=== PATIENT | male | born 1965 | race African-American/Black ===

== ENCOUNTER 2024-06-28 20:02 | Inpatient (IN) | payer BC, SELFPAY ==
[2024-06-28 16:29] VITALS: BP 207/110
[2024-06-28 16:54] LABS: % Basophils 0.5 % (0-2); % Eosinophils 2.1 % (0-6); % Immature Granulocytes 0.3 % (0-0.5); % Lymphocytes 16.7 % (20.5-51.1); % Monocytes 6.2 % (1.7-9.3); % Neutrophils 74.2 % (42.2-75.2); Absolute Basophils 0.1 10^3/uL (0-0.2); Absolute Eosinophils 0.2 10^3/uL (0-0.7); Absolute Lymphocytes 1.8 10^3/uL (1.2-3.4); Absolute Monocytes 0.7 10^3/uL (0.1-0.6); Hematocrit 39.4 % (39.0-52.0); Hemoglobin 13.2 g/dL (13.0-18.0); Mean Corp Hgb Conc. 33.5 g/dL (33.0-37.0); Mean Corpuscular Hgb 30.2 pg (27.0-31.0); Mean Corpuscular Volume 90.2 fL (80.0-94.0); Mean Platelet Volume 9.7 fL (7.4-10.4); Nucleated Red Blood Cells % 0 % (-); Platelet Count 307 10^3/uL (130-400); Red Blood Cell Count 4.37 10^6/uL (4.70-6.10); Red Cell Dist. Width 13.7 % (11.5-14.5); White Blood Cell Count 10.7 10^3/uL (4.8-10.8)
[2024-06-28 17:12] LABS: ALT (SGPT) 27 U/L (0-50); AST (SGOT) 18 U/L (17-59); Albumin 3.6 g/dl (3.5-5.0); Alkaline Phosphatase 96 U/L (38-126); Blood Urea Nitrogen 13 mg/dl (9-20); Calcium 9.5 mg/dl (8.4-10.2); Carbon Dioxide 24 mmol/L (22-30); Chloride 104 mmol/L (98-107); Glucose 184 mg/dl (70-99); Potassium 4.2 mmol/L (3.5-5.1); Sodium 135 mmol/L (135-145); Total Bilirubin 0.5 mg/dl (0.2-1.3); Total Protein 6.5 g/dl (6.3-8.2); eGFR > 60.00
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
[2024-06-28 19:08] VITALS: BMI 37.8
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
[2024-06-28 20:19] LABS: Erythrocyte Sed Rate 52 mm/hour (0-20)
[2024-06-28 20:55] VITALS: BP 206/115; BMI 36.7
--- NOTE | 2024-06-28 21:00 | PTCARENOTE ---
Patient received from ED, AAOX3, complaining of pain in left foot, medicated per JUN. NSR on monitor, hypertensive, prn labetalol given. Lungs clear, room air. Left foot swollen, toes 3 and 4 black with odor. #18 g in RAC. plan of care discussed
[2024-06-28] MEDS: VANCOCIN 540 MG IV (21:01)
[2024-06-28] MEDS: ORETIC 12.5 MG PO (21:14)
[2024-06-28] MEDS: TORADOL 10 MG IV (21:14)
[2024-06-28] MEDS: TRANDATE 10 MG IV (21:14)
[2024-06-28 21:46] LABS: Glucose - Point of Care 110 mg/dl (70-99)
[2024-06-28 23:07] VITALS: BP 193/111
[2024-06-29] VITALS (7 sets, daily range): BP systolic 147–190; BP diastolic 88–97
[2024-06-29] MEDS: TRANDATE 10 MG IV ×3 (03:17→23:24)
[2024-06-29 07:30] LABS: Glucose - Point of Care 123 mg/dl (70-99)
[2024-06-29 07:36] LABS: Hematocrit 36.6 % (39.0-52.0); Hemoglobin 12.2 g/dL (13.0-18.0); Mean Corp Hgb Conc. 33.3 g/dL (33.0-37.0); Mean Corpuscular Hgb 29.9 pg (27.0-31.0); Mean Corpuscular Volume 89.7 fL (80.0-94.0); Platelet Count 303 10^3/uL (130-400); Red Blood Cell Count 4.08 10^6/uL (4.70-6.10); Red Cell Dist. Width 13.5 % (11.5-14.5); White Blood Cell Count 8.6 10^3/uL (4.8-10.8)
[2024-06-29 07:56] LABS: Blood Urea Nitrogen 12 mg/dl (9-20); Calcium 9.4 mg/dl (8.4-10.2); Carbon Dioxide 26 mmol/L (22-30); Chloride 102 mmol/L (98-107); Estimated Creatinine Clearance > 125 ml/min; Glucose 109 mg/dl (70-99); Magnesium 1.5 mg/dl (1.6-2.3); Sodium 135 mmol/L (135-145); eGFR > 60.00
[2024-06-29] MEDS: TORADOL 10 MG IV (08:13)
[2024-06-29] MEDS: ZESTRIL 40 MG PO (08:15)
[2024-06-29] MEDS: GLUCOPHAGE XR EXTENDED RELEASE 750 MG PO (08:15)
[2024-06-29] MEDS: THERAGRAN 1 TABLET PO (08:15)
[2024-06-29] MEDS: ORETIC 12.5 MG PO ×2 (08:15→12:14)
[2024-06-29] MEDS: CRESTOR 20 MG PO (08:15)
--- NOTE | 2024-06-29 08:20 | PHA.VAN.IN ---
Assessment
- Assessment
Renal Function: Appears similar to baseline
AUC Dosing Plan
- Dosing Variables
Dosing Weight (kg): 119
Dosing CrCl (ml/min): 125
Vd coefficient (L/kg): 0.6
- Empiric Dosing
Initial / Loading Dose: 2000mg - 06/28 21:01
Maintenance Regimen: Vanc 1750mg Q12H starting at 1800
Estimated AUC (mcg*h/mL): 502
Estimated Peak (mcg*h/mL): 33.7
Estimated Trough (mcg/ml): 11.4
Estimated Half Life (H): 6.4
- Monitoring
No levels ordered at this time: consider levels in next few days
Pharmacokinetics Vancomycin I
- -
Patient Age: 59
Patient Sex: Male
Vancomycin Day #: 1
Indication: Skin And Soft Tissue
Requesting Provider: Dr. Quevedo
Pertinent Antimicrobial Allergies:
NKDA
Height / Weight:
Height 5 ft 11 in
Actual Weight 119.323 kg
Pertinent Past Medical History: BMI ~37
- Vital Signs / Lab Results
Temp Pulse Resp BP Pulse Ox
98.4 F 98 18 190/93 98
06/29/24 07:41 06/29/24 07:41 06/29/24 07:41 06/29/24 07:41 06/29/24 07:41
Lab Results - Hematology
06/28/24 06/29/24
16:44 06:58
WBC 10.7 8.6
Lab Results - Chemistry
06/28/24 06/29/24
16:44 06:58
BUN 13 12
Creatinine 0.8 0.7
Estimated Creat Clear > 125
Albumin 3.6
[2024-06-29 09:03] LABS: Glycohemoglobin (HgbA1c) 10.4 % (4.0-5.6)
--- NOTE | 2024-06-29 10:36 | W.PN.HOSP.TC ---
Today's Communication/Plan
-
Continue lisinopril, hctz, prn labetolol. Continue metformin, ISS. Cultures pending. Podiatry and ID consulted.
Assessment / Plan
Assessment / Plan
59yo M with PMH DM (metformin), htn (lisinopril), hld (rosuvastatin) presenting for pain/swelling of left foot. On arrival to ED, he was hypertensive with SBPs 200s, DBPs 110s requiring IV labetolol. Blood cultures and wound cultures from left foot
obtained, and he was started on IV vanc.
Diabetic foot infection with possible gangrene
- Blood cultures pending. Wound cultures pending.
- Afebrile, no leukocytosis. Elevated inflammatory markers.
- MRI left foot showed likely early osteomyelitis of 3rd toe within middle/distal phalanx; no evidence of osteomyelitis of 4th toe; soft tissue swelling
- Continue IV vancomycin
- Podiatry and ID consulted on admission.
- Check BARRY
Diabetes
- A1C 10.4 on admission, poorly controlled
- Continue home metformin
- POC BS and ISS
- Reassess for basal insulin based on requirements during day
Uncontrolled hypertension
- Continue home lisinopril 40mg daily
- Continue hctz, started this admission
- Continue PRN labetalol
HLD- continue home rosuvastatin 20mg daily
Code status: Full
VTE ppx: Lovenox sc
Diet: Diabetic, chol low
Dispo planning: pending clinical course
Anticipated Discharge: > 48 hours
Subjective/Interval History
-
Date of Service: June 29, 2024
No acute events overnight. Reports ongoing pain in left foot that he describes as sharp pain in top of toes, rated 7 out of 10 subjective pain scale, not relieved by medications. Reports occasional improvement in pain by hanging foot off edge of
bed. Denies fevers/chills, lightheadedness, dizziness, chest pain, shortness of breath, cough, abdominal pain, diarrhea, constipation. Last BM yesterday. Tolerating PO. At baseline ambulates without assistance.
Objective Data
-
Labs:
Laboratory Results
06/29/24
06:58
WBC 8.6
Hgb 12.2 L
Hct 36.6 L
Plt Count 303
Sodium 135
Potassium 4.0
Chloride 102
Carbon Dioxide 26
BUN 12
Creatinine 0.7
Glucose 109 H
Calcium 9.4
Vital Signs:
Vital Signs
Temp Pulse Resp BP Pulse Ox
98.4 F 98 18 190/93 96
06/29/24 07:41 06/29/24 07:41 06/29/24 07:41 06/29/24 07:41 06/29/24 08:46
I&O
06/28/24 06/29/24 06/30/24
06:59 06:59 06:59
Intake Total 540 / 540 240 / 240
Balance 540 / 540 240 / 240
Review of Systems
-
History Source: Patient
All other systems: Reviewed and negative
Physical Exam
-
General: Well Developed, No Apparent Distress, Comfortable, Conversant and Obese; Negative Fever, Chills or Sweats
HEENT: Normocephalic and Atraumatic
Respiratory: Clear to Auscultation and Non Labored Respirations; Negative Wheezes
Cardiac: Regular Rhythm and S1/S2
GI: Soft, Nontender, Normal Bowel Sounds and Other (obese abdomen)
Musculoskeletal: No Edema and Other (LLE: necrosis of distal 3rd/4th digit, no drainage, nontender)
Skin: Warm and Dry
Neuro: Awake, Alert and Oriented
Psych: Calm and Intact Judgement/Insight
Data Reviewed
-
Diagnostic Radiology: Image personally visualized and interpreted, Report Reviewed by me and Discussed with Patient
MRI: Image personally visualized and interpreted and Report Reviewed by me
Labs: Labs Reviewed by me
--- NOTE | 2024-06-29 10:56 | W.PN.UPDATE ---
Update Note
Progress Note Update
I saw and evaluated the patient. I reviewed the resident�s note and agree with findings and plan as documented in the resident�s note.
Gen: NAD, AAOx3.
Eyes: EOMI, PERRLA, no scleral icterus.
Neck: supple.
CV: RRR, +S1/S2, no m/r/g.
Resp: CTAB, no rales, wheezes, or rhonchi.
Abd: +BS, soft, NT, ND
Skin: No rashes. L 2nd/3rd toes with necrosis
Neuro: CN 2-12 intact, non-focal.
Psych: Normal mood and affect.
06/28/24 19:06 Toe Gram Stain - Preliminary
MRI foot: Soft tissue swelling along the third and fourth toes. There is ossification of the DIP of the third toe findings of likely early osteomyelitis within the middle/distal phalanx. There is no evidence of osteomyelitis involving the fourth
toe. T2/STIR hyperintense signal within the distal aspect of the distal phalanx of the great toe without adjacent soft tissue abnormality or T1 signal abnormality in which is favored to represent marrow edema.
Diabetic L foot OM:
-with gangrene/necrosis
-cont empiric Vanco
-follow Cxs
-Podiatry and ID to see
DM2:
-SSI/accuchecks
-a1c 10.4%
-change SSI to mod res
-cont diabetic diet
-BGs have been 100s
-c/s diabetes [employer]
-pt admits to noncompliance with diabetic diet
Essential HTN:
-With hypertensive urgency
-cont lisinopril
-start Norvasc 5mg daily
-increase HCTZ to 25mg daily
Obesity due to excess calories:
-Encourage weight loss
-Affects all aspects of care
FULL/Lovenox
Total time spent on today's encounter was 50 minutes which included time spent in counseling the patient/family regarding diagnosis and treatment plan as listed above, goals of care, and symptom management. Case was discussed with nursing staff,
specialists, and care coordinators/case management. All labs and imaging personally reviewed by me. Remainder the time spent in detailed review of previous records, lab data, imaging, and other medical provider documentation.
[2024-06-29 11:28] LABS: Glucose - Point of Care 142 mg/dl (70-99)
--- NOTE | 2024-06-29 11:29 | PN.DE.MGMTRT ---
Insulin Management
- -
06/29/2024: Diabetes Management Consult
59 year old male who presented to the ED with pain and swelling of the left foot due to Diabetic foot infection with possible gangrene.
PMH: HTN, HLD, NIDDM, Peripheral Neuropathy, and Class II Obesity. MRI-->Soft tissue swelling, likely early osteomyelitis of the 3rd digit in the middle/distal phalanx.
Pt awake, alert, sitting up in chair, offers no complaints, able to discuss diabetes care plan.
A1C 0.4%, Cr 0.7, eGFR >60, was taking Metformin 750mg daily and Ozempic Q Friday.
States he has had diabetes for over 15 years, does not test his blood sugars and does not have a glucose monitor
In-patient diabetes regimen includes: Moderate corrective insulin with meals and Metformin 750 mg daily only
Glucose has been stable and in range since admission. HS blood sugar was 110, FBG 109(V), 123 POC.
Discuss current AC1 with pt and emphasized importance of optimal glucose control to avoid worsening diabetes related complications.
Will increase Metformin to 1000 mg BID. His current glucose level does not warrant insulin therapy at this time
Will closely monitor glucose trend and add basal insulin if necessary.
Pt will be seen today by Diabetes RN Educator for monitor instructions.
Diabetes History
- -
Type of Diabetes: 2
Pre-Admission Diabetes Regimen
06/28/24 06/29/24
16:44 06:58
Creatinine 0.8 0.7
Lab Results
Hemoglobin A1c 10.4 % (4.0-5.6) H 06/29/24 06:58
Insulin Pump Settings
IP Diabetes Regimen
06/28/24 06/28/24 06/29/24
16:44 21:35 06:58
Glucose 184 H 109 H
POC Glucose 110 H
06/29/24 06/29/24
07:19 11:17
Glucose
POC Glucose 123 H 142 H
Meal type: Breakfast
Amount consumed: 95%
Patient Education
[2024-06-29 11:41] LABS: Alcohol None Detected
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
--- NOTE | 2024-06-29 11:54 | WOUNDNOTE ---
L 3RD AND 4TH TOES
--- NOTE | 2024-06-29 11:57 | WOUNDNOTE ---
WON RN note: Patient admitted with necrosis and cellulitis of L toes.
See H&P for complete history. Works for [employer] retires in 3 months per patient.
PMH: Obesity, IDDM,HTN,ORIF pelvic fracture.
Wound Location and type/assessment: Patient admitted with: gangrene of L 3rd and 4th toe, moist btw toes, scant serosanguineous drainage, no odor. + faint palpable pedal pulses, skin warm and dry. Heels are intact. Patient reports he had swelling
in feet recently and he thinks shoes were too tight causing ulcers. HgbA1c is 10.[address] Beasley at bedside who assessed ulcers. Patient states he is on Ozempic and has lost some weight. MRI showed early osteomyelitis in middle distal phalanx. Toe
culture pending as is I&D and Podiatry consults.
Appetite: Good.
Pressure redistribution devices in place: On Accumax, is ad alejandro.
Plan: Heel foams applied. Painted eschar with Betadine and dry gauze dressing until further orders from Podiatry.
Confirmed orders with hospitalist and updated nurse. Updated care plan and will follow as needed.
Note to case management of equipment requested for discharge: TBD
Recommend follow up with Board Design Engineer.
[2024-06-29] MEDS: NORVASC 5 MG PO (12:13)
[2024-06-29] MEDS: MORPHINE SULFATE 2 MG IV ×2 (12:15→20:14)
[2024-06-29] MEDS: ZOSYN 50 IV ×2 (13:27→20:01)
--- NOTE | 2024-06-29 15:17 | PTCARENOTE ---
06/29/2024 Diabetes Education
I met with Mr. Chapman to review diabetes management, has had Type 2 DM for many years.
He does not check BG at home, unsure of last HbA1c date but states it was approximately 13%. His current HbA1c is 10.4%.
I educated on physiology of T2D, managing with medications, monitoring BG, nutrition, activity, sleep and managing stress. I educated Mr. Chapman on complications from uncontrolled BG and that uncontrolled DM most likely played a role in his diagnosis
of gangrenous cellulitis. Member acknowledged understanding.
Discussed normal target glucose ranges and a monitoring schedule preprandial and 2 hours postprandial or as recommended per d/c instructions and PCP. I reinforced signs of hyperglycemia, hypoglycemia; BS parameters and recommended HbA1c goals,
written material provided. He denies signs and symptoms of hyperglycemia and hyperglycemia.
I educated and reviewed using Contour Next glucometer, member acknowledged understanding with a self demonstration of checking BS. Requested prescription sent to pharmacy for test strips and lancets for back up SMBG. Information provided on the
outpatient DSME program. Encouraged patient to follow up with his PCP for post d/c appointment and to monitor medication and blood glucose levels. Patient and spouse verbalized understanding.
--- NOTE | 2024-06-29 16:03 | CM ---
CM reviewed medical records. Patient is independent. Patient is active with his PCP. Patient has medication coverage. CM will watch for needs.
PLAN: Home vs. Home services.
[2024-06-29 16:30] LABS: Glucose - Point of Care 94 mg/dl (70-99)
[2024-06-29] MEDS: LOVENOX 40 MG SC (17:17)
[2024-06-29] MEDS: VANCOCIN 535 MG IV (17:17)
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
[2024-06-29 21:42] LABS: Glucose - Point of Care 92 mg/dl (70-99)
[2024-06-30] VITALS (11 sets, daily range): BP systolic 168–197; BP diastolic 84–101
[2024-06-30] MEDS: ZOSYN 50 IV ×4 (01:23→19:30)
[2024-06-30] MEDS: MORPHINE SULFATE 2 MG IV ×4 (03:40→21:46)
[2024-06-30] MEDS: VANCOCIN 535 MG IV ×2 (05:24→17:18)
--- NOTE | 2024-06-30 05:36 | DOWNTIME ---
There was a [employer] Client Blind Cleaner Downtime on 06/30/2024 from 0100 to 07/01/2023 at 0420 . Downtime documentation of patient's care, including medication administrations, has been reconciled in the electronic record per guidelines. Refer to the
patient's paper chart under the miscellaneous tab to see printed paper medication records and downtime forms.
[2024-06-30 06:17] LABS: Glucose - Point of Care 102 mg/dl (70-99)
[2024-06-30] MEDS: GLUCOPHAGE XR EXTENDED RELEASE 1000 MG PO (07:38)
[2024-06-30] MEDS: THERAGRAN 1 TABLET PO (07:38)
[2024-06-30] MEDS: ZESTRIL 40 MG PO (07:38)
[2024-06-30] MEDS: ORETIC 25 MG PO (07:38)
[2024-06-30] MEDS: CRESTOR 20 MG PO (07:38)
[2024-06-30] MEDS: NORVASC 5 MG PO ×2 (07:39→09:31)
--- NOTE | 2024-06-30 08:28 | PN.DE.MGMTRT ---
Insulin Management
- -
06/30/2024: Diabetes Management Consult Follow up
59 year old male who presented to the ED with pain and swelling of the left foot due to Diabetic foot infection with possible gangrene.
PMH: HTN, HLD, NIDDM, Peripheral Neuropathy, and Class II Obesity. MRI-->Soft tissue swelling, likely early osteomyelitis of the 3rd digit in the middle/distal phalanx. A1C 10.4%, Cr 0.7, eGFR >60, was taking Metformin 750mg daily and Ozempic Q
Friday.
06/29 States he has had diabetes for over 15 years, does not test his blood sugars and does not have a glucose monitor.
Pt is off the unit for testing, unable to interview.
06/30 Glucose stable, range 92 to 142, fasting glucose this AM 102. Will continue moderate corrective insulin q 6hours. Patient is currently NPO for procedure.
Discussed with nurse.
Will follow
Pt seen by Diabetes RN Educator for Contour Next monitor instructions.
Diabetes History
- -
Type of Diabetes: 2
Pre-Admission Diabetes Regimen
Lab Results
Hemoglobin A1c 10.4 % (4.0-5.6) H 06/29/24 06:58
Insulin Pump Settings
IP Diabetes Regimen
06/29/24 06/29/24 06/29/24
11:17 16:18 21:31
POC Glucose 142 H 94 92
06/30/24
06:05
POC Glucose 102 H
Meal type: Lunch
Meal type: Breakfast
Amount consumed: 100%
Amount consumed: 95%
Patient Education
--- NOTE | 2024-06-30 08:49 | W.PN.UPDATE ---
Update Note
Progress Note Update
I saw and evaluated the patient. I reviewed the resident�s note and agree with findings and plan as documented in the resident�s note.
No new complaints. Denies chest pain or shortness of breath.
Gen: NAD, AAOx3.
Eyes: EOMI, PERRLA, no scleral icterus.
Neck: supple.
CV: Remains RRR, +S1/S2, no m/r/g.
Resp: Remains CTAB, no rales, wheezes, or rhonchi.
Abd: +BS, soft, NT, ND
Skin: No rashes. Remains L 2nd/3rd toes with necrosis
Neuro: CN 2-12 intact, non-focal.
Psych: Normal mood and affect.
06/28/24 19:06 Blood/Venous Blood Culture - Preliminary
No Growth in 24 hours- Final report to follow
06/28/24 19:06 Toe Gram Stain - Preliminary
MRI foot: Soft tissue swelling along the third and fourth toes. There is ossification of the DIP of the third toe findings of likely early osteomyelitis within the middle/distal phalanx. There is no evidence of osteomyelitis involving the fourth
toe. T2/STIR hyperintense signal within the distal aspect of the distal phalanx of the great toe without adjacent soft tissue abnormality or T1 signal abnormality in which is favored to represent marrow edema.
Diabetic L foot OM:
-with gangrene/necrosis
-cont empiric Vanco/zosyn as per ID
-follow Cxs
-Podiatry following
-awaiting LE art U/S with ABIs
DM2:
-SSI/accuchecks
-a1c 10.4%
-cont mod res SSI
-cont diabetic diet
-BGs have been well controlled in hospital
-diabetes DECKER OPERATOR following
-pt admits to noncompliance with diabetic diet
-stop Metformin. Pt may need arteriogram and is also likely having surgery which can result in fluid shifts/losses that can result in acute kidney injury. The risk of using metformin in this case while hospitalized is simply too high.
Essential HTN:
-With hypertensive urgency
-cont lisinopril 40mg daily (home med)
-on 06/28/24 Norvasc 5mg daily was started and the patient's HCTZ was increased to 25mg daily
-BP still uncontrolled
-increase norvasc to 10mg daily (will take 24-72 hours to become effective)
-will try IV hydralazine PRN (as opposed to IV labetalol)
Obesity due to excess calories:
-Encourage weight loss
-Affects all aspects of care
FULL/Lovenox
Total time spent on today's encounter was 52 minutes which included time spent in counseling the patient/family regarding diagnosis and treatment plan as listed above, goals of care, and symptom management. Case was discussed with nursing staff,
specialists, and care coordinators/case management. All labs and imaging personally reviewed by me. Remainder the time spent in detailed review of previous records, lab data, imaging, and other medical provider documentation.
--- NOTE | 2024-06-30 09:01 | W.PN.HOSP.TC ---
Today's Communication/Plan
-
Check BARRY, possible podiatry surgery, maintain NPO preop. Increased antihypertensives, continue prn labetalol. Diabetes management consult
Assessment / Plan
Assessment / Plan
59yo M with PMH DM (metformin), htn (lisinopril), hld (rosuvastatin) presenting for pain/swelling of left foot. On arrival to ED, he was hypertensive with SBPs 200s, DBPs 110s requiring IV labetolol. Blood cultures and wound cultures from left foot
obtained, and he was started on IV vanc.
Diabetic foot infection with possible gangrene
Suspected peripheral arterial disease
- Blood cultures pending. Wound cultures pending.
- Afebrile, no leukocytosis. Elevated inflammatory markers.
- MRI left foot showed likely early osteomyelitis of 3rd toe within middle/distal phalanx; no evidence of osteomyelitis of 4th toe; soft tissue swelling
- ID and podiatry following, appreciate recs.
- Continue IV vancomycin and zosyn per ID.
- Check BARRY, anticipate this AM.
- Pending results of BARRY, will go to OR with podiatry-- possibly today. NPO.
Diabetes
- A1C 10.4 on admission, poorly controlled
- Stop home metformin while inpatient
- Diabetes management consulted, appreciate recs.
- Continue accuchecks and moderate ISS
Hypertensive urgency
Essential hypertension, uncontrolled
- Continue home lisinopril 40mg daily
- Continue hctz 25mg daily, started this admission
- Continue amlodipine 10mg daily, started this admission
- Continue PRN labetalol
HLD- continue home rosuvastatin 20mg daily
Obesity due to excess calories
Code status: Full
VTE ppx: Lovenox sc
Diet: NPO for possible surgery today
Dispo planning: pending clinical course
Anticipated Discharge: 24 - 48 hours
Subjective/Interval History
-
Date of Service: June 30, 2024
No acute events overnight. Reports ongoing pain in toes, improves when hanging foot off edge of bed. Denies lightheadedness, dizziness, chest pain, shortness of breath, abdominal pain, nausea, vomiting, diarrhea, constipation. Tolerating oral
diet. Out of bed without assistance. Last BM 3 days ago.
Objective Data
-
Labs:
Laboratory Results
06/30/24
06:00
WBC Pending
Hgb Pending
Hct Pending
Plt Count Pending
Sodium Pending
Potassium Pending
Chloride Pending
Carbon Dioxide Pending
BUN Pending
Creatinine Pending
Glucose Pending
Calcium Pending
Vital Signs:
Vital Signs
Temp Pulse Resp BP Pulse Ox
98.1 F 101 19 188/98 97
06/30/24 07:36 06/30/24 07:36 06/30/24 07:36 06/30/24 07:38 06/30/24 07:36
I&O
06/29/24 06/30/24 07/01/24
06:59 06:59 06:59
Intake Total 540 / 540 1595 / 1595
Balance 540 / 540 1595 / 1595
Review of Systems
-
History Source: Patient
All other systems: Reviewed and negative
Physical Exam
-
General: Well Developed, No Apparent Distress, Comfortable, Conversant and Obese; Negative Fever, Chills or Sweats
HEENT: Normocephalic and Atraumatic
Respiratory: Clear to Auscultation and Non Labored Respirations; Negative Wheezes, Rales or Rhonchi
Cardiac: Regular Rhythm and S1/S2
GI: Soft, Nontender, Normal Bowel Sounds and Other (obese abdomen)
Musculoskeletal: No Edema and Other (LLE: necrosis of distal 3rd/4th digit, no drainage, nontender)
Skin: Warm and Dry
Neuro: Awake, Alert and Oriented
Psych: Calm and Intact Judgement/Insight
Data Reviewed
-
Diagnostic Radiology: Image personally visualized and interpreted, Report Reviewed by me and Discussed with Patient
MRI: Image personally visualized and interpreted and Report Reviewed by me
Labs: Labs Reviewed by me
--- NOTE | 2024-06-30 11:06 | CM ---
Patient out of room to test. CM will follow as needed.
[2024-06-30 11:15] LABS: Glucose - Point of Care 106 mg/dl (70-99)
[2024-06-30] MEDS: APRESOLINE 10 MG IV ×3 (11:17→21:44)
--- NOTE | 2024-06-30 11:28 | W.PN.SURGUPD ---
Surgical Update
Surgical Update
59 y.o male with h/o HTN, HLD, NIDDM presenting to with left 3rd/4th toe gangrene and infection. MRI showed likely early osteomyelitis of left 3rd toe, no evidence of osteomyelitis of 4th toe. Patient with findings of poor peripheral vascular exam
-Reviewed non-invasive vascular testing results, L TBI 0.38
-Recommend vascular surgery consultation, appreciate input
-Will defer left foot surgical intervention pending vascular surgery input
-Continue local wound care (daily betadine pain to toes), antibiotics per ID recs
-Will continue to follow
[2024-06-30 12:02] LABS: Hematocrit 38.9 % (39.0-52.0); Hemoglobin 13.3 g/dL (13.0-18.0); Mean Corp Hgb Conc. 34.2 g/dL (33.0-37.0); Mean Corpuscular Hgb 30.5 pg (27.0-31.0); Mean Corpuscular Volume 89.2 fL (80.0-94.0); Mean Platelet Volume 9.5 fL (7.4-10.4); Platelet Count 320 10^3/uL (130-400); Red Blood Cell Count 4.36 10^6/uL (4.70-6.10); Red Cell Dist. Width 13.6 % (11.5-14.5); White Blood Cell Count 13.1 10^3/uL (4.8-10.8)
--- NOTE | 2024-06-30 12:59 | PTCARENOTE ---
pt BP remains elevated after PRN, ST 106-115 Resident notified
[2024-06-30 13:12] LABS: Blood Urea Nitrogen 15 mg/dl (9-20); Calcium 9.7 mg/dl (8.4-10.2); Carbon Dioxide 25 mmol/L (22-30); Chloride 99 mmol/L (98-107); Estimated Creatinine Clearance 118 ml/min; Glucose 111 mg/dl (70-99); Potassium 4.1 mmol/L (3.5-5.1); Sodium 136 mmol/L (135-145); eGFR > 60.00
--- NOTE | 2024-06-30 13:35 | PHA.VAN.FU ---
Vancomycin Assessment / Plan
- Assessment
Renal Function: Stable
WBC's are: Trending Up
In the past 24 hrs, patient has been: Afebrile
Concomitant Antimicrobials: piperacillin/tazobactam
- Dosing Plan
Continue: Vanc 1750mg Q12H
- Monitoring Plan
No level(s) ordered at this time: consider levels in next few days
- Follow Up
Pharmacy will continue to follow.
Vancomycin Follow UP
- -
Patient Age: 59
Patient Sex: Male
Vancomycin Day #: 2
Indication: Skin And Soft Tissue
Requesting Provider: Dr. Quevedo
Pertinent Antimicrobial Allergies:
NKDA
Height / Weight:
Height 5 ft 11 in
Actual Weight 119.323 kg
Pertinent Past Medical History: BMI ~37
- Vital Signs / Lab Results
Temp Pulse Resp BP Pulse Ox
98.1 F 106 19 178/99 98
06/30/24 11:27 06/30/24 12:04 06/30/24 11:27 06/30/24 12:04 06/30/24 11:27
Lab Results - Hematology
06/28/24 06/29/24 06/30/24
16:44 06:58 11:52
WBC 10.7 8.6 13.1 H
Lab Results - Chemistry
06/28/24 06/29/24 06/30/24
16:44 06:58 11:52
BUN 13 12 15
Creatinine 0.8 0.7 0.9
Estimated Creat Clear > 125 118
Albumin 3.6
Microbiology Results
06/29/24 12:42 Blood Culture - Preliminary
Blood/Venous No Growth in 24 hours- Final report to follow
06/28/24 19:06 Wound Culture - Preliminary
Toe Gram Stain - Preliminary
06/28/24 19:06 Blood Culture - Preliminary
Blood/Venous No Growth in 24 hours- Final report to follow
--- NOTE | 2024-06-30 14:56 | W.PN.UPDATE ---
Update Note
Progress Note Update
Seen and examined with MONO De La Fuente. Full consultation to follow. 59-year-old diabetic/hypertensive/hyperlipidemic non-smoking male (no tobacco history) who presents with close to 1 month of left fourth toe lesion/ulcer. Initially started as a
blister, now became dry and black. Third toe slightly less involved. Patient thinks that his toes were rubbing on 1 another and that is what started it. No prior such issues. Denies any prior lower extremity revascularizations. No significant
pain in the limb.
On exam/he is awake and alert. Head is normocephalic and atraumatic. Eyes are anicteric. Neck is soft without jugular venous distention. 2+ upper extremity radial pulses palpable bilaterally. Breathing is unlabored. Abdomen is soft,
nondistended, nontender. Lower extremity with 2+ femoral and popliteal pulses palpable bilaterally. Nonpalpable distally bilaterally. Feet are both warm. Left fourth toe dry gangrene and possibly distal third.
Noninvasive studies reviewed. Left toe brachial index is 0.38. No definitive stenosis seen on duplex ultrasound from common femoral through popliteal artery with multiphasic waveforms.
Plan/chronic limb threatening ischemia left lower extremity with gangrene. Discussed recommendation for angiography. Discussed procedure at length. Discussed potential outcomes to be: #1 no evidence of significant arterial insufficiency, #2
arterial stenoses or occlusions with successful revascularization endovascularly, #3 arterial stenoses or occlusions requiring staged surgical procedure, #4 no unreconstructable small vessel obliterative disease. I discussed risks of the procedure
as well including but not limited to bleeding, arterial injury/worsened or acute limb ischemia, renal failure. He understands all wishes to proceed. Will plan left lower extremity arteriogram, possible angioplasty/stent tomorrow. N.p.o. after
midnight.
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
[2024-06-30 16:20] LABS: Glucose - Point of Care 112 mg/dl (70-99)
--- NOTE | 2024-06-30 16:32 | W.PN.ID1 ---
Date of Service
Date of Service: June 30, 2024
Today's Communication
- c/w zosyn
- continue vancomycin
Assessment / Plan
Diabetic Foot Infection
Partial Dry Gangrene of 3rd and 4th digits of the L foot
Underlying osteomyelitis of the middle/distal 3rd phalanx
DM2 uncontrolled
- blood cultures x2 no growth to date
- wound culture is superficial, bear in mind this will not necessiarly be reliable for underlying cause of osteomyelitis
- nasal screen for mrsa
- recommend tight glucose control - reviewed importance of dm2 control in long run for wound healing
- would favor surgical resection of the affected bone in the 3rd digit, if not undertaken, I can attempt a course of home IV therapy; appreciate podiatry
- c/w zosyn
- continue vancomycin
- follow clinically
Chief Complaint
-: Other (diabetic foot infection)
Subjective / Review of Systems
afebrile
hypertensive
tolerating current therapies
Vital Signs / Physical Exam
Vital Signs
Vital Signs
Temp Pulse Resp BP Pulse Ox
98.9 F 103 18 182/93 97
06/30/24 15:10 06/30/24 15:10 06/30/24 15:10 06/30/24 15:10 06/30/24 15:10
Physical Exam
Constitutional: No Acute Distress
Cardiovascular: Regular Rate and S1/S2; Negative Murmur or Rub
Pulmonary: Clear and Symmetric; Negative Wheezes, Rales or Rhonchi
Gastrointestinal: Soft, Non Tender, Non Distended and Normal Bowel Sounds
Skin: Warm and Dry; Negative Rash or Jaundice
Wound: Other (dressing clean, dry, intact)
Objective Data
Lab Data
Lab Results
06/30/24 11:52
06/30/24 11:52
ESR 52 mm/hour (0-20) H 06/28/24 16:44
Estimated Creat Clear 118 ml/min 06/30/24 11:52
Total Bilirubin 0.5 mg/dl (0.2-1.3) 06/28/24 16:44
AST 18 U/L (17-59) 06/28/24 16:44
ALT 27 U/L (0-50) 06/28/24 16:44
Alkaline Phosphatase 96 U/L (38-126) 06/28/24 16:44
C-Reactive Protein 28.80 mg/L (0.0-10.00) H 06/28/24 16:44
Most recent labs reviewed.
Micro Results:
06/29/24 12:42 Blood Culture - Preliminary
Blood/Venous No Growth in 24 hours- Final report to follow
06/28/24 19:06 Wound Culture - Preliminary
Toe Gram Stain - Preliminary
06/28/24 19:06 Blood Culture - Preliminary
Blood/Venous No Growth in 24 hours- Final report to follow
[2024-06-30] MEDS: LOVENOX 40 MG SC (17:18)
[2024-06-30 21:50] LABS: Glucose - Point of Care 133 mg/dl (70-99)
--- NOTE | 2024-06-30 21:50 | PTCARENOTE ---
Received patient from [facility] via wheelchair. Patient ambulated from wheelchair to bed with minimal assistance. AAOx3, reports 7/10 left toe pain. PRN morphine given per protocol. Oriented patient to room and placed call walker within reach.
[2024-07-01] VITALS (17 sets, daily range): BP systolic 144–186; BP diastolic 80–102
[2024-07-01 00:19] LABS: Glucose - Point of Care 133 mg/dl (70-99)
[2024-07-01] MEDS: ZOSYN 50 IV ×2 (02:29→08:38)
[2024-07-01] MEDS: VANCOCIN 535 MG IV (05:54)
[2024-07-01 05:55] LABS: Glucose - Point of Care 123 mg/dl (70-99)
[2024-07-01] MEDS: MORPHINE SULFATE 2 MG IV ×2 (06:02→13:27)
--- NOTE | 2024-07-01 07:53 | PN.DE.MGMTRT ---
Insulin Management
- -
07/01/2024: Diabetes Management Consult Follow up
59 year old male who presented to the ED with pain and swelling of the left foot due to Diabetic foot infection with possible gangrene.
PMH: HTN, HLD, NIDDM, Peripheral Neuropathy, and Class II Obesity. MRI-->Soft tissue swelling, likely early osteomyelitis of the 3rd digit in the middle/distal phalanx. A1C 10.4%, Cr 0.7, eGFR >60, was taking Metformin 750mg daily and Ozempic Q
Friday.
06/29 States he has had diabetes for over 15 years, does not test his blood sugars and does not have a glucose monitor.
Patient for procedure today not in room at the time of my visit.
06/30 Glucose stable, range 102 to 133, fasting glucose this AM 123. Will continue moderate corrective insulin q 6hours. Patient is currently NPO for procedure.
Discussed with nurse.
Will follow
Pt seen by Diabetes RN Educator for Contour Next monitor instructions.
Diabetes History
- -
Type of Diabetes: 2
Pre-Admission Diabetes Regimen
06/30/24
11:52
Creatinine 0.9
Lab Results
Hemoglobin A1c 10.4 % (4.0-5.6) H 06/29/24 06:58
Insulin Pump Settings
IP Diabetes Regimen
06/30/24 06/30/24 06/30/24
11:04 11:52 16:09
Glucose 111 H
POC Glucose 106 H 112 H
06/30/24 07/01/24 07/01/24
21:49 00:17 05:53
Glucose
POC Glucose 133 H 133 H 123 H
Meal type: Lunch
Meal type: Breakfast
Amount consumed: 50%
Patient Education
[2024-07-01] MEDS: CRESTOR 20 MG PO (08:36)
[2024-07-01] MEDS: ZESTRIL 40 MG PO (08:37)
[2024-07-01] MEDS: ORETIC 25 MG PO (08:37)
[2024-07-01] MEDS: NORVASC 10 MG PO (08:37)
[2024-07-01] MEDS: THERAGRAN 1 TABLET PO (08:37)
[2024-07-01] MEDS: FLUSH (NSS) 1 FLUSH IV (08:38)
[2024-07-01 08:41] LABS: Hematocrit 36.8 % (39.0-52.0); Hemoglobin 12.6 g/dL (13.0-18.0); Mean Corp Hgb Conc. 34.2 g/dL (33.0-37.0); Mean Corpuscular Hgb 30.1 pg (27.0-31.0); Mean Corpuscular Volume 87.8 fL (80.0-94.0); Mean Platelet Volume 10.2 fL (7.4-10.4); Platelet Count 314 10^3/uL (130-400); Red Blood Cell Count 4.19 10^6/uL (4.70-6.10); Red Cell Dist. Width 13.5 % (11.5-14.5); White Blood Cell Count 10.9 10^3/uL (4.8-10.8)
[2024-07-01 09:03] LABS: Blood Urea Nitrogen 20 mg/dl (9-20); Calcium 9.1 mg/dl (8.4-10.2); Carbon Dioxide 19 mmol/L (22-30); Chloride 101 mmol/L (98-107); Estimated Creatinine Clearance 81 ml/min; Glucose 115 mg/dl (70-99); Magnesium 1.7 mg/dl (1.6-2.3); Potassium 4.1 mmol/L (3.5-5.1); Sodium 135 mmol/L (135-145); eGFR > 60.00
--- NOTE | 2024-07-01 09:51 | W.SUR.PREOP ---
Pre-Operative Surgical Note
-
I have examined this patient prior to the performance of the scheduled procedure.
The patient's condition is unchanged from the time of the current History and
Physical and the patient is able to undergo the scheduled procedure.
--- NOTE | 2024-07-01 09:55 | W.PN.HOSP.TC ---
Today's Communication/Plan
-
Vascular surgery eval today, NPO. Continue antibiotics.
Assessment / Plan
Assessment / Plan
59yo M with PMH DM (metformin), htn (lisinopril), hld (rosuvastatin) presenting for pain/swelling of left foot. On arrival to ED, he was hypertensive with SBPs 200s, DBPs 110s requiring IV labetolol. Blood cultures and wound cultures from left foot
obtained, and he was started on IV vanc.
Gangrene
Suspected peripheral arterial disease
Chronic limb threatening ischemia LLE
- Blood culture 06/28: No growth in 48 hours, final report pending. Blood culture 06/29: No growth in 24 hours, final report pending.
- Wound cultures pending; polymicrobial Gram stain.
- Afebrile, no leukocytosis on admission. Elevated inflammatory markers.
- MRI left foot showed likely early osteomyelitis of 3rd toe within middle/distal phalanx; no evidence of osteomyelitis of 4th toe; soft tissue swelling
- ID and podiatry following, appreciate recs.
- Continue to follow temperature curve and wbc.
- Continue IV vancomycin and zosyn per ID.
- Given L TBI 0.38, vascular surgery consulted, appreciate recs.
- Vascular surg procedure today, NPO.
- Will eventually need amputation, plan pending vascular evaluation.
Diabetes
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
- Stop home metformin while inpatient
- Diabetes management consulted, appreciate recs.
- Continue accuchecks and moderate ISS
Hypertensive urgency
Essential hypertension, uncontrolled
- Continue home lisinopril 40mg daily
- Continue hctz 25mg daily, started this admission
- Continue amlodipine 10mg daily, started this admission
- Continue PRN hydralazine
- BPs gradually improving, SBP 140s-170s overnight. Continue plan above as oral meds will take few days to reach full effect and BPs on admission likely inline with his baseline QUALITY ASSURANCE DIRECTOR.
HLD- continue home rosuvastatin 20mg daily
Obesity due to excess calories
Code status: Full
VTE ppx: Lovenox sc
Diet: NPO for procedure today
Dispo planning: pending clinical course
Anticipated Discharge: > 48 hours
Subjective/Interval History
-
Date of Service: July 01, 2024
No acute events overnight. Reports mild pain in toe, no other complaints this morning. ROS negative. Voiding spontaneously. Last BM prior to admission. Has been out of bed to bathroom.
Objective Data
-
Labs:
Laboratory Results
07/01/24
07:25
WBC 10.9 H
Hgb 12.6 L
Hct 36.8 L
Plt Count 314
Sodium 135
Potassium 4.1
Chloride 101
Carbon Dioxide 19 L
BUN 20
Creatinine 1.3
Glucose 115 H
Calcium 9.1
Vital Signs:
Vital Signs
Temp Pulse Resp BP Pulse Ox
99.1 F 94 18 163/90 96
07/01/24 07:46 07/01/24 08:37 07/01/24 07:46 07/01/24 08:37 07/01/24 07:46
I&O
06/30/24 07/01/24 07/02/24
06:59 06:59 06:59
Intake Total 1595 / 1595 960 / 960
Balance 1595 / 1595 960 / 960
Review of Systems
-
History Source: Patient
All other systems: Reviewed and negative
Physical Exam
-
General: Well Developed, No Apparent Distress, Comfortable, Conversant and Obese; Negative Fever, Chills or Sweats
HEENT: Normocephalic and Atraumatic; Negative Oxygen
Respiratory: Clear to Auscultation and Non Labored Respirations; Negative Wheezes, Rales or Rhonchi
Cardiac: Regular Rhythm and S1/S2
GI: Soft, Nontender and Other (obese abdomen)
Musculoskeletal: Other (LLE: necrosis of distal 3rd/4th digit, no drainage. Trace edema bilateral lower extremities, symmetric.)
Skin: Warm and Dry
Neuro: Awake, Alert and Oriented
Psych: Calm and Intact Judgement/Insight
Data Reviewed
-
Diagnostic Radiology: Image personally visualized and interpreted, Report Reviewed by me and Discussed with Patient
MRI: Image personally visualized and interpreted and Report Reviewed by me
Labs: Labs Reviewed by me
--- NOTE | 2024-07-01 10:10 | W.PN.UPDATE ---
Update Note
Progress Note Update
I saw and evaluated the patient. I reviewed the resident�s note and agree with findings and plan as documented in the resident�s note.
Denies chest pain or shortness of breath.
Gen: NAD, AAOx3.
Eyes: EOMI, PERRLA, no scleral icterus.
Neck: supple.
CV: continues to remain RRR, +S1/S2, no m/r/g.
Resp: continues to remain CTAB, no rales, wheezes, or rhonchi.
Abd: +BS, soft, NT, ND
Skin: No rashes. continues to remain L 2nd/3rd toes with necrosis
Neuro: CN 2-12 intact, non-focal.
Psych: Normal mood and affect.
06/29/24 12:42 Blood/Venous Blood Culture - Preliminary
No Growth in 48 hours- Final report to follow
06/28/24 19:06 Toe Wound Culture - Preliminary
Proteus mirabilis
Streptococcus pyogenes
Diptheroids
06/28/24 19:06 Toe Gram Stain - Preliminary
06/28/24 19:06 Blood/Venous Blood Culture - Preliminary
No Growth in 48 hours- Final report to follow
MRI foot: Soft tissue swelling along the third and fourth toes. There is ossification of the DIP of the third toe findings of likely early osteomyelitis within the middle/distal phalanx. There is no evidence of osteomyelitis involving the fourth
toe. T2/STIR hyperintense signal within the distal aspect of the distal phalanx of the great toe without adjacent soft tissue abnormality or T1 signal abnormality in which is favored to represent marrow edema.
Diabetic L foot OM:
-with gangrene/necrosis
-cont Rocephin as per ID, plan for residential abx pending definitive surgical intervention
-follow Cxs (see above)
-Podiatry following
-s/p arteriogram today. As per Dr. 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
DM2:
-SSI/accuchecks
-a1c 10.4%
-cont mod res SSI (adequate at this time)
-cont diabetic diet
-BGs have been well controlled in hospital
-diabetes COMPACTOR DRIVER following
-pt admits to noncompliance with diabetic diet
Essential HTN:
-With hypertensive urgency
-cont lisinopril 40mg daily (home med)
-on 06/28/24 Norvasc 5mg daily was started and the patient's HCTZ was increased to 25mg daily
-on 06/30/24 norvasc increased to 10mg
-BP still uncontrolled
-start Hydralazine 50mg PO TID
-IV hydralazine PRN
Obesity due to excess calories:
-Encourage weight loss
-Affects all aspects of care
Pt's family updated at bedside. Case discussed with ID/Podiatry/vascular.
FULL/Lovenox
Total time spent on today's encounter was 50 minutes which included time spent in counseling the patient/family regarding diagnosis and treatment plan as listed above, goals of care, and symptom management. Case was discussed with nursing staff,
specialists, and care coordinators/case management. All labs and imaging personally reviewed by me. Remainder the time spent in detailed review of previous records, lab data, imaging, and other medical provider documentation.
--- NOTE | 2024-07-01 10:39 | OR.RPT ---
Operative Report
Operative Report
PROCEDURE DATE: 07/01/2024
Preoperative diagnosis: Chronic limb threatening ischemia left lower extremity with gangrene left foot
Postoperative diagnosis: Same
Procedure:
1. Duplex assisted right common femoral artery cannulation.
2. Aortogram and pelvic angiogram.
3. Left lower extremity arteriogram with selective catheterization of left superficial femoral artery via right common femoral artery puncture.
4. Right femoral angiogram.
5. Supervision and interpretation.
Surgeon: Frederic
Ceiling Insulation Blower: None
Complications: None
Anesthesia: Local, sedation
Fluoroscopy:
5.3 min
77 mGy
24.96 Gy.cm2
Indications for procedure:
Gangrene left foot, severely depressed toe brachial index. Concern for peripheral arterial disease and based on duplex and exam, concern for infrapopliteal or small vessel disease. Risk/benefit/alternatives of angiography were fully discussed.
Patient understood all wished to proceed.
Description of procedure:
Patient was identified, brought to the operating room. Placed on the table in the supine position. After the adequate administration of anesthesia, the patient was prepped and draped in the standard surgical fashion. A standard preoperative
timeout was undertaken and everybody was in agreement with the plan.
The right common femoral artery was accessed with a micropuncture kit under direct duplex ultrasound guidance. A 5 [place] Helen[place] sheath was then advanced over a 0.035 inch wire, and a stafford's hook catheter was advanced into the abdominal aorta.
Aortogram and pelvic angiogram was obtained. Findings as follows:
Infrarenal aorta: Distal infrarenal aorta only visualized (not more proximally), which was patent with no significant stenosis
Right common iliac artery: Patent with no significant stenosis
Right external iliac artery:Patent with no significant stenosis
Left common iliac artery:Patent with no significant stenosis
Left external iliac artery:Patent with no significant stenosis
Using a floppy angled hydrophilic wire, the left common femoral artery was cannulated and the catheter was advanced. Left lower extremity arteriogram was obtained. Findings as follows:
Common femoral artery:Patent with no significant stenosis
Profunda femoris artery:Patent with no significant stenosis
Superficial femoral artery:Patent with no significant stenosis
Popliteal artery:Patent with no significant stenosis
Anterior tibial artery: Patent with high origin from the popliteal artery behind the knee. Patent through three quarters of the calf. In the distal calf there was paring down of the vessel with diminishing in size, areas of severe stenosis or
focal occlusions followed by essentially complete occlusion with collateralization on the foot. No named vessel on the foot.
Tibial peroneal trunk: As noted above, high origin of the tibioperoneal trunk secondary to high anterior tibial artery takeoff. No significant stenosis noted.
Peroneal artery: Patent with no significant stenosis through 2/3-3/4 of the calf. Distally severe stenoses/occlusions and diminutive vessel size. Wisp like collaterals.
Posterior tibial artery: Chronically occluded.
In the foot itself, there was no named vessel. Initially I thought the dorsalis pedis was, but it appeared to be a collateral, and even if it was the dorsalis pedis it was slightly aberrant in its course, and was severely diseased and very small in
size.
At this point I felt that there is nothing endovascular to render for this distribution of small vessel obliterative disease. The catheter was withdrawn. Right femoral angiogram was performed through the sheath. Demonstrated good puncture in the
right common femoral artery. Catheters and wires were withdrawn. The patient will be transported to the recovery room where the sheath will be withdrawn and manual pressure applied to the puncture site.
Patient will be worked up for potential LimFlow candidacy.
The patient tolerated procedure well.
[2024-07-01 10:54] LABS: Glucose - Point of Care 117 mg/dl (70-99)
[2024-07-01] MEDS: APRESOLINE 10 MG IV (11:31)
--- NOTE | 2024-07-01 12:30 | PTCARENOTE ---
Received report from Kavita in PACU. Pt back to rm [id number] at 1230, Pt AAOx3, tolerable pain of left foot currently, discussed pain management if pt needs it. SR on telemetry. Completed site check and pulse check with Kavita at bedside. Discussed with
pt bedrest order, HOB restriction etc- pt verbalized understanding, call walker within reach, will monitor.
[2024-07-01] MEDS: NSS 1000 IV (13:00)
[2024-07-01] MEDS: STERILE WATER FOR INJECTION 20 ML IV (13:05)
[2024-07-01] MEDS: ROCEPHIN 2000 MG IV (13:05)
[2024-07-01 13:25] LABS: Glucose - Point of Care 132 mg/dl (70-99)
--- NOTE | 2024-07-01 14:02 | W.PN.ID1 ---
Date of Service
Date of Service: July 01, 2024
Today's Communication
- tentatively for a 6 week course of IV ceftriaxone and oral metrondiazole, script provided to adult protective caseworker today 07/01, decision will be finalized with sensitivities tomorrow
- if patient undergoes amputation of all affected tissue after revascularization then course of antibiotics could be stopped early
Assessment / Plan
Diabetic Foot Infection
Partial Dry Gangrene of 3rd and 4th digits of the L foot
Underlying osteomyelitis of the middle/distal 3rd phalanx
DM2 uncontrolled
- blood cultures x2 no growth to date
- wound culture is superficial, bear in mind this will not necessiarly be reliable for underlying cause of osteomyelitis; Proteus, S pyogenes, diptheroids
- nasal screen for mrsa - pending
- recommend tight glucose control - reviewed importance of dm2 control in long run for wound healing
- start ceftriaxone/metronidazole
- tentatively for a 6 week course of IV ceftriaxone and oral metrondiazole, script provided to adult protective caseworker today 07/01, decision will be finalized with sensitivities tomorrow
- if patient undergoes amputation of all affected tissue after revascularization then course of antibiotics could be stopped early
- follow clinically
Chief Complaint
-: Other (diabetic foot infection)
Subjective / Review of Systems
afebrile
bp stable
discussed with Dr De La Garza, Dr Espinal and Dr Beasley this AM - minimal blood flow to the the foot on angiogram today
Vital Signs / Physical Exam
Vital Signs
Vital Signs
Temp Pulse Resp BP Pulse Ox
98.9 F 103 18 172/88 97
07/01/24 13:05 07/01/24 13:05 07/01/24 13:05 07/01/24 13:05 07/01/24 13:25
Physical Exam
Constitutional: No Acute Distress
Cardiovascular: Regular Rate and S1/S2; Negative Murmur or Rub
Pulmonary: Clear and Symmetric; Negative Wheezes, Rales or Rhonchi
Gastrointestinal: Soft, Non Tender, Non Distended and Normal Bowel Sounds
Skin: Warm and Dry; Negative Rash or Jaundice
Wound: Other (dressing clean, dry, intact)
Objective Data
Lab Data
Lab Results
07/01/24 07:25
07/01/24 07:25
ESR 52 mm/hour (0-20) H 06/28/24 16:44
Estimated Creat Clear 81 ml/min 07/01/24 07:25
Total Bilirubin 0.5 mg/dl (0.2-1.3) 06/28/24 16:44
AST 18 U/L (17-59) 06/28/24 16:44
ALT 27 U/L (0-50) 06/28/24 16:44
Alkaline Phosphatase 96 U/L (38-126) 06/28/24 16:44
C-Reactive Protein 28.80 mg/L (0.0-10.00) H 06/28/24 16:44
Most recent labs reviewed.
Micro Results:
06/29/24 12:42 Blood Culture - Preliminary
Blood/Venous No Growth in 48 hours- Final report to follow
06/28/24 19:06 Wound Culture - Preliminary
Toe Proteus mirabilis
Streptococcus pyogenes
Diptheroids
Gram Stain - Preliminary
06/28/24 19:06 Blood Culture - Preliminary
Blood/Venous No Growth in 48 hours- Final report to follow
06/30/24 16:43 MRSA Screen - Pending
Nose
--- NOTE | 2024-07-01 15:01 | CM ---
Addendum entered by Nikole Kahn 07/01/24 15:43:
automation engineering manager met with patient and reviewed IV ABX, and discussed infusion services and options and patient has selected [facility] infusion, referral sent to [facility] and message left with [facility] nurse. automation engineering manager will need to check
patient's benefits for home infusion and cost of medication.
Original Note:
automation engineering manager received a script for IV ABX, rehabilitation case coordinator will discuss with patient, home IV ABX.
Plan; Home with IV ABX, will need to check patient's benefit for home IV ABX. l
--- NOTE | 2024-07-01 15:17 | VATNOTE ---
Per radiology report, PICC in good position with tip in the SVC. Notified PCN that PICC is OK to use. Instructed PCN to change all IV tubing prior to connecting to PICC line and remove all ipsilateral PIV sites.
[2024-07-01] MEDS: FLAGYL 500 MG PO (15:59)
[2024-07-01] MEDS: APRESOLINE 50 MG PO ×2 (15:59→22:22)
[2024-07-01 17:20] LABS: Glucose - Point of Care 202 mg/dl (70-99)
[2024-07-01] MEDS: NOVOLOG FLEXPEN-MODERATE RESISTANCE 3 UNITS SC (18:17)
[2024-07-01] MEDS: LOVENOX 40 MG SC (18:17)
--- NOTE | 2024-07-01 18:21 | PTCARENOTE ---
Gave pt evening meds for Vernell ACUNA. Pt tolerated his Insulin and Lovenox without incident.
[2024-07-01 21:36] LABS: Glucose - Point of Care 234 mg/dl (70-99)
[2024-07-02] MEDS: FLAGYL 500 MG PO ×3 (01:13→15:33)
[2024-07-02 03:30] VITALS: BP 160/91
[2024-07-02 05:00] LABS: Hematocrit 35.5 % (39.0-52.0); Hemoglobin 11.8 g/dL (13.0-18.0); Mean Corp Hgb Conc. 33.2 g/dL (33.0-37.0); Mean Corpuscular Hgb 29.7 pg (27.0-31.0); Mean Corpuscular Volume 89.4 fL (80.0-94.0); Mean Platelet Volume 9.8 fL (7.4-10.4); Platelet Count 340 10^3/uL (130-400); Red Blood Cell Count 3.97 10^6/uL (4.70-6.10); Red Cell Dist. Width 13.3 % (11.5-14.5); White Blood Cell Count 11.6 10^3/uL (4.8-10.8)
[2024-07-02 05:23] LABS: Blood Urea Nitrogen 31 mg/dl (9-20); Chloride 101 mmol/L (98-107); Estimated Creatinine Clearance 66 ml/min; Glucose 132 mg/dl (70-99); Sodium 133 mmol/L (135-145); eGFR 49.63
[2024-07-02 05:32] LABS: Carbon Dioxide 22 mmol/L (22-30)
[2024-07-02 07:41] VITALS: BP 152/85
[2024-07-02 08:01] LABS: Glucose - Point of Care 123 mg/dl (70-99)
--- NOTE | 2024-07-02 08:15 | PN.DE.MGMTRT ---
Addendum entered and electronically signed by ANGELITO Palacios 07/02/24 15:42:
Went to speak to Pt and his Mom at bedside before presumed discharge home, about his diabetes care and management at home.
Was Notified by Nurse that pt's discharge has been canceled due to LINDY. Cr 0.8 on admission-->1.3-->[address] Beasley has started pt on Lantus 6 units @ HS. Pt's fasting glucose has remained stable since admission, in range of 109 to 132 and premeal glucose has ranged from 94 to 202, requiring 1 time dose of corrective insulin. No indication for insulin
therapy at this time. Consider oral agents if premeal glucose is consistently >150.
Will follow pt on Friday if he remains in the hospital. HOLD Metformin at discharge.
Addendum entered and electronically signed by ANGELITO Palacios 07/02/24 13:36:
Discharge recs: Metformin at increased dose of 1000mg BID.
Will defer adding other oral agents or insulin to PCP, as Pt's blood glucose level has been well controlled w/o requiring insulin while in the hospital.
Pt will need close OP followup with PCP to determine need for insulin or other oral diabetes agents.
Will add Rx for glucose monitor supplies.
Original Note:
Insulin Management
- -
07/02/2024: Diabetes Management Follow up
59 year old male who presented to the ED with pain and swelling of the left foot due to Diabetic foot infection with possible gangrene.
PMH: HTN, HLD, NIDDM, Peripheral Neuropathy, and Class II Obesity. MRI-->Soft tissue swelling, likely early osteomyelitis of the 3rd digit in the middle/distal phalanx. A1C 10.4%, Cr 0.7, eGFR >60, was taking Metformin 750mg daily and Ozempic Q
Friday.
06/29 States he has had diabetes for over 15 years, does not test his blood sugars and does not have a glucose monitor.
Patient for procedure today, not in room at the time of my visit, unable to discuss diabetes care plan.
07/01 Glucose stable, range 117 to 202, fasting glucose this AM 132 (V), 123 POC.
Will continue moderate corrective insulin AC. Will consider starting a ESTRADA if premeal glucose warrants.
Discussed with nurse. Will cont to follow
06/28 Pt seen by Diabetes RN Educator for Contour Next monitor instructions.
Diabetes History
- -
Type of Diabetes: 2
Pre-Admission Diabetes Regimen
07/01/24 07/02/24
04:42
Creatinine 1.3 1.6 H
Lab Results
Hemoglobin A1c 10.4 % (4.0-5.6) H 06/29/24 06:58
Insulin Pump Settings
IP Diabetes Regimen
07/01/24 07/01/24 07/01/24
07: 10:52 13:24
Glucose 115 H
POC Glucose 117 H 132 H
07/01/24 07/01/24 07/02/24
17:18 21:35 04:42
Glucose 132 H
POC Glucose 202 H 234 H
07/02/24
07:59
Glucose
POC Glucose 123 H
Meal type: Dinner
Meal type: Lunch
Meal type: Breakfast
Amount consumed: 100%
Amount consumed: 0
Amount consumed: 0
Patient Education
[2024-07-02] MEDS: CRESTOR 20 MG PO (08:17)
[2024-07-02] MEDS: THERAGRAN 1 TABLET PO (08:17)
[2024-07-02] MEDS: ZESTRIL 40 MG PO (08:17)
[2024-07-02] MEDS: NOVOLOG FLEXPEN-MODERATE RESISTANCE SC ×2 (08:17→12:42)
[2024-07-02] MEDS: APRESOLINE 50 MG PO ×3 (08:18→21:25)
[2024-07-02] MEDS: ORETIC 25 MG PO (08:18)
[2024-07-02] MEDS: NORVASC 10 MG PO (08:18)
--- NOTE | 2024-07-02 09:12 | W.PN.HOSP.TC ---
Today's Communication/Plan
-
LimFlow evaluation per vascular surgery. Continue antibiotics per ID, CM aware of IV antibiotics needed at discharge.
Assessment / Plan
Assessment / Plan
59yo M with PMH DM (metformin), htn (lisinopril), hld (rosuvastatin) presenting for pain/swelling of left foot. On arrival to ED, he was hypertensive with SBPs 200s, DBPs 110s requiring IV labetolol. Blood cultures and wound cultures from left foot
obtained, and he was started on IV vanc.
Gangrene
Suspected peripheral arterial disease
Chronic limb threatening ischemia LLE
- Blood culture 06/28: No growth in 72 hours, final report pending. Blood culture 06/29: No growth in 48 hours, final report pending.
- Wound cultures polymicrobial: proteus mirabilis, streptococcus pyogenes, diptheroids.
- Afebrile, no leukocytosis on admission. Elevated inflammatory markers.
- MRI left foot showed likely early osteomyelitis of 3rd toe within middle/distal phalanx; no evidence of osteomyelitis of 4th toe; soft tissue swelling
- ID and podiatry following, appreciate recs.
- Continue to follow temperature curve and wbc.
- Continue IV ceftriazone and PO metronidazole per ID. Tentatively plan for 6 week course.
- Given L TBI 0.38, vascular surgery consulted, appreciate recs.
- Angiogram 07/01 with vascular surg: severe stenosis/occlusions with collateralization on the foot, no named vessel in foot; small vessel obliterative disease; no endovascular intervention performed.
- Possible candidate for LimFlow, ultrasounds per vascular surgery have been ordered.
- Will eventually need amputation, timing per vascular/podiatry likely scheduled outpatient-- will need close outpatient followup with podiatry.
Diabetes
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
- Stop home metformin while inpatient
- Diabetes management consulted, appreciate recs.
- Continue accuchecks and moderate ISS
- Fasting BS 123 this AM, only required 3u sliding scale once yesterday.
Hypertensive urgency
Essential hypertension, uncontrolled
- Continue home lisinopril 40mg daily
- Continue hctz 25mg daily, started this admission
- Continue amlodipine 10mg daily, started this admission
- Continue PO hydralazine 50mg TID, started this admission.
- Continue IV PRN hydralazine
- BPs gradually improving, SBP 140s-160 overnight. Continue to monitor.
HLD- continue home rosuvastatin 20mg daily
Obesity due to excess calories
Code status: Full
VTE ppx: Lovenox sc
Diet: Diabetic
Dispo planning: pending clinical course
Anticipated Discharge: 24 - 48 hours
Subjective/Interval History
-
Date of Service: July 02, 2024
No acute events overnight. Reports some toe pain, unchanged. Otherwise no complaints. Reports constipation, last BM prior to admission, no abdominal pain. Voiding spontaneously. Tolerating oral diet. Out of bed as tolerated.
Objective Data
-
Labs:
Laboratory Results
07/02/24
04:42
WBC 11.6 H
Hgb 11.8 L
Hct 35.5 L
Plt Count 340
Sodium 133 L
Potassium 4.0
Chloride 101
Carbon Dioxide 22
BUN 31 H
Creatinine 1.6 H
Glucose 132 H
Calcium 9.0
Vital Signs:
Vital Signs
Temp Pulse Resp BP Pulse Ox
97.9 F 97 18 152/85 98
07/02/24 07:41 07/02/24 08:17 07/02/24 07:41 07/02/24 08:17 07/02/24 07:41
I&O
07/01/24 07/02/24 07/03/24
06:59 06:59 06:59
Intake Total 960 / 960 1460 / 1460
Balance 960 / 960 1460 / 1460
Review of Systems
-
History Source: Patient
All other systems: Reviewed and negative
Physical Exam
-
General: Well Developed, No Apparent Distress, Comfortable, Conversant and Obese; Negative Fever, Chills or Sweats
HEENT: Normocephalic and Atraumatic; Negative Oxygen
Respiratory: Clear to Auscultation and Non Labored Respirations; Negative Wheezes, Rales or Rhonchi
Cardiac: Regular Rhythm and S1/S2
GI: Soft, Nontender and Other (obese abdomen)
Musculoskeletal: Other (LLE: necrosis of distal 3rd/4th digit. Trace edema bilateral lower extremities, symmetric.)
Skin: Warm and Dry
Neuro: Awake, Alert, Oriented and Nonfocal/Grossly Intact
Psych: Calm and Intact Judgement/Insight
Data Reviewed
-
Diagnostic Radiology: Image personally visualized and interpreted, Report Reviewed by me and Discussed with Patient
Ultrasound: Report Reviewed by me
MRI: Image personally visualized and interpreted and Report Reviewed by me
Medical Tests (Nuc Med, Echo etc): Report Reviewed by me
Labs: Labs Reviewed by me
--- NOTE | 2024-07-02 09:36 | W.PN.VS ---
Today's Communication / Plan
-
See below.
Assessment/Plan
-
Assessment: 59-year-old male POD #1 diagnostic left lower extremity angiogram
Plan:
Limflow ultrasound obtained, will have patient follow-up in outpatient setting for arrangement of possible inflow procedure with Dr. Aníbal De La Garza
Follow-up appointment placed in discharge instructions
We will sign off please call with questions or concerns
Subjective Data
-
Date of Service: July 02, 2024
And examined at bedside offers no complaints, reports no pain at right groin puncture site. Denies nausea, vomiting, fever, and chills.
Objective Data
-
Vital Signs
Temp Pulse Resp BP Pulse Ox
97.9 F 97 18 152/85 98
07/02/24 07:41 07/02/24 08:17 07/02/24 07:41 07/02/24 08:17 07/02/24 07:41
Intake and Output
07/01/24 07/02/24 07/03/24
06:59 06:59 06:59
Intake Total 960 / 960 1460 / 1460
Balance 960 / 960 1460 / 1460
Intake:
Oral fluids 960 / 960 960 / 960
IV fluids (Total) 500 / 500
normal saline 100 / 100
Other:
Number of approximated MODERATE 1 1
amounts of urine
Lab Results
07/02/24 04:42
07/02/24 04:42
Calcium 9.0 mg/dl (8.4-10.2) 07/02/24 04:42
Magnesium 1.7 mg/dl (1.6-2.3) 07/01/24 07:25
Total Bilirubin 0.5 mg/dl (0.2-1.3) 06/28/24 16:44
AST 18 U/L (17-59) 06/28/24 16:44
ALT 27 U/L (0-50) 06/28/24 16:44
Alkaline Phosphatase 96 U/L (38-126) 06/28/24 16:44
Total Protein 6.5 g/dl (6.3-8.2) 06/28/24 16:44
Albumin 3.6 g/dl (3.5-5.0) 06/28/24 16:44
Physical Exam
-
No apparent distress, resting in bed comfortably
No tachycardia
No dyspnea on room air
ABD rotund, nondistended, nontender
Right groin puncture site CDI, no evidence of hematoma
--- NOTE | 2024-07-02 10:35 | CM ---
Addendum entered by Savanah Blake 07/02/24 12:32:
Patient seen bedside, aware [facility] nurse coming for bedside teaching today at 1:00 p.m. Patient reports if discharged today, has transportation home.
Original Note:
CM reviewed chart, reviewed with nurse, patient off floor currently. CM spoke with Jojo from [facility], patient covered 100% through benefits, will come to hospital around 1:00 p.m. for bedside teaching. CM faxed PICC/chest xray to Jojo. CM will
continue to follow for all discharge planning needs.
Plan; home with [facility] for IV antibiotics
[facility]
--- NOTE | 2024-07-02 11:00 | PN.CDI ---
CDI
- -
CDI:
Physician Documentation Request
Admit Date: 06/28/24 20:02
Dear Doctor Ramos,
Please review the following and provide your response in the progress notes.
Clinical Indicators:
Laboratory Tests
06/28/24 06/29/24 06/30/24
16:44 06:58 11:52
Creatinine 0.8 0.7 0.9
eGFR > 60.00 > 60.00 > 60.00
07/01/24 07/02/24
07: 04:42
Creatinine 1.3 1.6 H
eGFR > 60.00 49.63
Based on the above and your clinical assessment, please clarify which of the following accurately represents the patient's renal status:
Acute kidney injury (non-traumatic) - see criteria
Other(please specify)
Criteria for LINDY*
1 Increase in serum creatinine by > or = to 0.3 mg/dL (> or = to 26.5 micromol/L) within 48 hours, OR
2 Increase in serum creatinine to > or = to 1.5 times baseline, which is known or presumed to have occurred within 7 days, OR
3 Urine volume < 0.5 nL/kg/hour for six hours
Stages of Chronic Kidney Disease*
Level Description GFR
G1 Normal or High >90
G2 Mildly decreased 60-89
G3a Mildly to moderately decreased 45-59
G3b Moderately to severely decreased 30-44
G4 Severely decreased 15-29
G5 Kidney failure <15
Use of terms such as suspected, likely, concern for, or probable (associated with a specific diagnosis that is being evaluated, monitored, or treated as if it exists) are acceptable and can be coded in the inpatient setting, when documented at the
time of discharge.
Thank you,
Isabelle Mejia RN BSN CCDS
CDI Specialist
please contact via tiger text
Please use your independent medical judgment in providing your response.
*Source: Kidney Disease: Improving Global Outcomes (KDIGO) 2012
--- NOTE | 2024-07-02 11:05 | PN.CDI ---
CDI
- -
CDI:
Physician Documentation Request
Admit Date: 06/28/24 20:02
Dear Doctor Ramos,
Please review the following and provide your response in the progress notes.
Clinical Indicators:
Laboratory Tests
06/28/24 06/29/24 06/30/24
16:44 06:58 11:52
Hgb 13.2 12.2 L 13.3
07/01/24 07/02/24
07:25 04:42
Hgb 12.6 L 11.8 L
Based on the above and your clinical assessment please clarify the condition/diagnosis evaluated, monitored and/or treated?
Acute blood loss anemia
Acute blood loss anemia with baseline chronic anemia (Specify type)
Other(please specify)
Use of terms such as suspected, likely, concern for, or probable (associated with a specific diagnosis that is being evaluated, monitored, or treated as if it exists) are acceptable and can be coded in the inpatient setting, when documented at the
time of discharge.
Thank you,
Isabelle Mejia RN BSN CCDS
CDI Specialist
please contact via tiger text
Please use your independent medical judgment in providing your response.
[2024-07-02 12:39] LABS: Glucose - Point of Care 141 mg/dl (70-99)
--- NOTE | 2024-07-02 12:41 | W.PN.UPDATE ---
Addendum entered and electronically signed by Brady Beasley MD 07/02/24 14:36:
Anemia of chronic disease as well as dilutional. No evidence of acute blood loss.
Addendum entered and electronically signed by Brady Beasley MD 07/02/24 14:25:
Total time spent on d/c = 36 min. This included today's physical exam, progress note, review of laboratory and diagnostic data, preparation of discharge documents and prescriptions, and discussions about the pt's hospital course and discharge plan
with the patient and other medical oncologist involved in the patient's care.
Original Note:
Update Note
Progress Note Update
I saw and evaluated the patient. I reviewed the resident�s note and agree with findings and plan as documented in the resident�s note.
Denies chest pain or shortness of breath.
Gen: NAD, AAOx3.
Eyes: EOMI, PERRLA, no scleral icterus.
Neck: supple.
CV: continues to remain RRR, +S1/S2, no m/r/g.
Resp: continues to remain CTAB, no rales, wheezes, or rhonchi.
Abd: +BS, soft, NT, ND
Skin: No rashes. continues to remain L 2nd/3rd toes with necrosis
Neuro: CN 2-12 intact, non-focal.
Psych: Normal mood and affect.
06/28/24 19:06 Toe Wound Culture - Final
Proteus mirabilis
Streptococcus pyogenes
Diptheroids
06/28/24 19:06 Toe Gram Stain - Final
06/30/24 16:43 Nose MRSA Screen - Final
No Methicillin Resistant Staphylococcus aureus isolated.
06/28/24 19:06 Blood/Venous Blood Culture - Preliminary
No Growth in 72 hours- Final report to follow
06/29/24 12:42 Blood/Venous Blood Culture - Preliminary
No Growth in 48 hours- Final report to follow
MRI foot: Soft tissue swelling along the third and fourth toes. There is ossification of the DIP of the third toe findings of likely early osteomyelitis within the middle/distal phalanx. There is no evidence of osteomyelitis involving the fourth
toe. T2/STIR hyperintense signal within the distal aspect of the distal phalanx of the great toe without adjacent soft tissue abnormality or T1 signal abnormality in which is favored to represent marrow edema.
Diabetic L foot OM:
-with gangrene/necrosis
-cont Rocephin/Flagyl for 6 weeks as per ID, pending definitive surgical intervention
-follow Cxs (see above)
-Podiatry following
-s/p arteriogram 07/01/24. As per Dr. De La Garza, 'small vessel obliterative disease (no named vessels in foot).' Plans for LimFLow procedure as outpt as per discussion with vascular surgery.
DM2:
-SSI/accuchecks
-a1c 10.4%
-cont mod res SSI (adequate at this time)
-cont diabetic diet
-diabetes PATHOLOGIST following
-pt admits to noncompliance with diabetic diet
-start Lantus 6U HS
Essential HTN:
-With hypertensive urgency
-cont lisinopril 40mg daily (home med)
-on 06/28/24 Norvasc 5mg daily was started and the patient's HCTZ was increased to 25mg daily
-on 06/30/24 Norvasc increased to 10mg
-on 07/01/24 started on hydralazine 50mg TID
-IV hydralazine PRN
Obesity due to excess calories:
-Encourage weight loss
-Affects all aspects of care
Case discussed with ID/Podiatry/vascular. Plan for d/c today on IV abx.
FULL/Lovenox
[2024-07-02] MEDS: ROCEPHIN 2000 MG IV (12:56)
[2024-07-02] MEDS: STERILE WATER FOR INJECTION 20 ML IV (12:56)
--- NOTE | 2024-07-02 14:34 | W.PN.UPDATE ---
Update Note
Progress Note Update
Pt with LINDY. Start NS @ 125cc/hr, c/s renal. Likely CONSTANTINO.
[2024-07-02 15:28] VITALS: BP 164/86
--- NOTE | 2024-07-02 15:28 | W.CON.NEPH ---
Consultation
-
Date/Time Consultation Requested: July 02, 2024 at 3 PM
Date/Time Consultation Performed: July 02, 2024 at 3:30 PM
Requesting Provider: Dr. Beasley
Performing Provider: Dr. Tubbs
Reason for Consultation: Acute kidney injury
Medical History
-
Chief Complaint: Acute kidney injury
History of Present Illness:
59-year-old with past medical history of mfm-lhaunnu-aezenomgg diabetes, hypertension and hyperlipidemia presenting to the emergency department with pain and swelling of the left foot. Being treated for cellulitis and gangrene lower extremities toe.
Renal consult for acute kidney injury creatinine 1.6.
No documentation of hypotensive episode documentation of hypotensive episodes
He did have hypertensive on admission to the ER with systolic blood pressure 200 diastolic blood pressure over 100 requiring IV beta-faith without evidence of any significant drop compromising renal function.
Past Medical History
Past medical history of jyh-eelalpm-olxkjhtnd diabetes, hypertension and hyperlipidemia
Social History
Tobacco: Non-Smoker
Alcohol: None
Family History
Family History: Not Pertinent
Allergies / Home Medications
Allergy/AdvReac Type Severity Reaction Status Date / Time
No Known Allergies Allergy Unverified 06/28/24 16:33
�Medication �Instructions �Recorded �Confirmed �Type
semaglutide 2 mg/dose (8 mg/3 mL) 2 mg SC ESTRADA 06/28/24 06/28/24 History
subcutaneous pen injector (Ozempic)
blood sugar diagnostic (Contour #60 ea 06/29/24 Rx
Next Test Strips)
lancets (Microlet Lancet) #60 ea 06/29/24 Rx
amlodipine 10 mg tablet 10 mg PO DAILY Blood pressure #30 07/02/24 Rx
tabs
ceftriaxone 2 gram solution for 2,000 mg IV Q24H Infection #0 ea 07/02/24 Rx
injection
hydralazine 50 mg tablet 50 mg PO TID Blood pressure #90 07/02/24 Rx
tabs
hydrochlorothiazide 25 mg tablet 25 mg PO DAILY Blood pressure #30 07/02/24 Rx
tabs
lisinopril 40 mg tablet 40 mg PO DAILY Blood pressure #0 07/02/24 06/28/24 Rx
tabs
metformin 750 mg tablet,extended 750 mg PO DAILY Diabetes #0 tabs 07/02/24 06/28/24 Rx
release 24 hr
metronidazole 500 mg tablet 500 mg PO Q8 Infection 6 weeks 07/02/24 Rx
#126 tabs
rosuvastatin 20 mg tablet 20 mg PO DAILY High cholesterol #0 07/02/24 06/28/24 Rx
tabs
therapeutic multivitamin 1 tab PO DAILY Supplement #0 tabs 07/02/24 06/28/24 Rx
Review of Systems
-
All other systems: Negative unless noted
Physical Exam
Vital Signs
Vital Signs
Temp Pulse Resp BP Pulse Ox
98.2 F 98 18 164/86 99
07/02/24 15:28 07/02/24 15:28 07/02/24 15:28 07/02/24 15:28 07/02/24 15:28
Lab Results
WBC 11.6 10^3/uL (4.8-10.8) H 07/02/24 04:42
RBC 3.97 10^6/uL (4.70-6.10) L 07/02/24 04:42
Hgb 11.8 g/dL (13.0-18.0) L 07/02/24 04:42
Hct 35.5 % (39.0-52.0) L 07/02/24 04:42
Plt Count 340 10^3/uL (130-400) 07/02/24 04:42
Sodium 133 mmol/L (135-145) L 07/02/24 04:42
Potassium 4.0 mmol/L (3.5-5.1) 07/02/24 04:42
Chloride 101 mmol/L (98-107) 07/02/24 04:42
Carbon Dioxide 22 mmol/L (22-30) 07/02/24 04:42
BUN 31 mg/dl (9-20) H 07/02/24 04:42
Creatinine 1.6 mg/dL (0.7-1.3) H 07/02/24 04:42
eGFR 49.63 07/02/24 04:42
Glucose 132 mg/dl (70-99) H 07/02/24 04:42
Calcium 9.0 mg/dl (8.4-10.2) 07/02/24 04:42
Albumin 3.6 g/dl (3.5-5.0) 06/28/24 16:44
Physical Exam
General no acute distress
HEENT no cephalic atraumatic extraocular muscle intact no scleral icterus no JVD neck supple
lungs clear to auscultation bilateral
heart regular S1-S2 positive
abdomen soft nontender positive bowel sounds
extremities no edema pulses present bilateral
Neurologically nonfocal alert and oriented x 3
Skin no lesions no abrasions no petechiae
Psych normal affect no bizarre behavior
Data Reviewed
-
CT Scan: Image Personally Visualized and interpreted
Labs: Labs Reviewed by me and Discussed with Patient
Assessment/Plan
-
59-year-old with past medical history of ksv-wslkxqi-egsqctdro diabetes, hypertension and hyperlipidemia presenting to the emergency department with pain and swelling of the left foot. Being treated for cellulitis and gangrene lower extremities toe.
Renal consult for acute kidney injury creatinine 1.6.
No documentation of hypotensive episode documentation of hypotensive episodes
He did have hypertensive on admission to the ER with systolic blood pressure 200 diastolic blood pressure over 100 requiring IV beta-faith without evidence of any significant drop compromising renal function.
Impression.
Acute kidney injury creatinine 1.6.
Toe gangrene/cellulitis.
Diabetes. Open A1c 10.4> diabetic for 18 years with early stages of diabetic retinopathy
Hypertension.
.
Plan.
Uncertain as to the acuity but risk factors include angiogram using IV contrast hypertensive urgency on admission and infectious GN/CONSTANTINO (unlikely) , initiating glomerular modifying medications on this hospital stay lisinopril and addition of
thiazide diuretic.
Ordered urinalysis with urine eosinophils.
Agree with IV fluids
No indication for renal ultrasound at this time as renal function does not improve.
Recheck labs in AM.
Will be candidate for SGLT2 inhibitor but will follow him up as an outpatient and discussed that with him as I told him
If creatinine is the same or better tomorrow he be okay for discharge from my standpoint if urinalysis is relatively bland I would expect him to have proteinuria with uncontrolled diabetes.
Thank you for the consult
[2024-07-02] MEDS: NSS 1000 IV (15:32)
--- NOTE | 2024-07-02 16:47 | W.PN.ID1 ---
Date of Service
Date of Service: July 02, 2024
Today's Communication
- attribute LINDY to contrast with angiogram yesterday and previous contrast earlier this admission, unlikely AIN
- c/w ceftriaxone/metronidazole
- for a 6 week course of IV ceftriaxone and oral metrondiazole, script provided to case management coordinator 07/01, decision if finalized
- if patient undergoes amputation of all affected tissue after revascularization then course of antibiotics could be stopped early
Assessment / Plan
Diabetic Foot Infection
Partial Dry Gangrene of 3rd and 4th digits of the L foot
Underlying osteomyelitis of the middle/distal 3rd phalanx
DM2 uncontrolled
- blood cultures x2 no growth to date
- wound culture is superficial, bear in mind this will not necessiarly be reliable for underlying cause of osteomyelitis; Proteus, S pyogenes, diptheroids
- nasal screen for mrsa - pending
- recommend tight glucose control - reviewed importance of dm2 control in long run for wound healing
- attribute LINDY to contrast with angiogram yesterday and previous contrast earlier this admission, unlikely AIN
- c/w ceftriaxone/metronidazole
- for a 6 week course of IV ceftriaxone and oral metrondiazole, script provided to case management coordinator 07/01, decision if finalized
- if patient undergoes amputation of all affected tissue after revascularization then course of antibiotics could be stopped early
- follow clinically
Chief Complaint
-: Other (diabetic foot infection)
Subjective / Review of Systems
afebrile
bp stable
no complaints
Vital Signs / Physical Exam
Vital Signs
Vital Signs
Temp Pulse Resp BP Pulse Ox
98.2 F 98 18 164/86 99
07/02/24 15:28 07/02/24 15:28 07/02/24 15:28 07/02/24 15:28 07/02/24 15:28
Physical Exam
Constitutional: No Acute Distress
Cardiovascular: Regular Rate
Pulmonary: Symmetric and Non Labored
Gastrointestinal: Non Distended
Skin: Dry; Negative Rash or Jaundice
Neurological: Awake
Objective Data
Lab Data
Lab Results
07/02/24 04:42
07/02/24 04:42
ESR 52 mm/hour (0-20) H 06/28/24 16:44
Estimated Creat Clear 66 ml/min 07/02/24 04:42
Total Bilirubin 0.5 mg/dl (0.2-1.3) 06/28/24 16:44
AST 18 U/L (17-59) 06/28/24 16:44
ALT 27 U/L (0-50) 06/28/24 16:44
Alkaline Phosphatase 96 U/L (38-126) 06/28/24 16:44
C-Reactive Protein 28.80 mg/L (0.0-10.00) H 06/28/24 16:44
Most recent labs reviewed.
Micro Results:
06/29/24 12:42 Blood Culture - Preliminary
Blood/Venous No Growth in 72 hours- Final report to follow
06/28/24 19:06 Wound Culture - Final
Toe Proteus mirabilis
Streptococcus pyogenes
Diptheroids
Gram Stain - Final
06/30/24 16:43 MRSA Screen - Final
Nose No Methicillin Resistant Staphylococcus aureus isolated.
06/28/24 19:06 Blood Culture - Preliminary
Blood/Venous No Growth in 72 hours- Final report to follow
Care Review
Plan reviewed with: Physician (Dr Ramos MEEKS)
[2024-07-02 17:19] LABS: Glucose - Point of Care 216 mg/dl (70-99)
--- NOTE | 2024-07-02 17:34 | W.PN.SURGUPD ---
Surgical Update
Surgical Update
59 y.o male with h/o HTN, HLD, NIDDM presenting to with left 3rd/4th toe gangrene and infection. MRI showed likely early osteomyelitis of left 3rd toe, no evidence of osteomyelitis of 4th toe. Patient with findings of poor peripheral vascular exam
-Vascular surgery planning for further workup for possible DVA
-Will defer left foot surgical intervention to follow vascular surgery findings
-Continue antibiotics per ID recs
-Continue local wound care (daily betadine pain to toes)
-Patient to follow up with myself at [facility] 2-3 weeks following discharge
[2024-07-02] MEDS: NOVOLOG FLEXPEN-MODERATE RESISTANCE 3 UNITS SC (18:28)
[2024-07-02] MEDS: LOVENOX 40 MG SC (18:29)
[2024-07-02 19:48] LABS: Urine Albumin 2+ (Neg - Trace); Urine Bilirubin Negative (Negative); Urine Character Clear (Clear); Urine Color Yellow; Urine Glucose Negative (Negative); Urine Ketone Negative (Negative); Urine Leukocyte Negative (Negative); Urine Nitrite Negative (Negative); Urine Occult Blood Negative (Negative); Urine Specific Gravity 1.015 (<1.030); Urine Urobilinogen Negative (Neg - 1+)
[2024-07-02 20:06] LABS: Urine Sodium 50 mmol/L (30-90)
[2024-07-02 20:13] LABS: Urine Squamous Cell >30 /LPF (Few)
[2024-07-02 20:14] LABS: Urine Bacteria Few (Negative); Urine Red Blood Cell None Seen /HPF (0-2)
[2024-07-02 21:10] LABS: Glucose - Point of Care 171 mg/dl (70-99)
[2024-07-02] MEDS: LANTUS 0.06 UNITS SC (21:25)
[2024-07-02 23:14] VITALS: BP 176/92
[2024-07-03] VITALS (8 sets, daily range): BP systolic 126–189; BP diastolic 73–104; PULSE 99; O2SAT 96
[2024-07-03] MEDS: FLAGYL 500 MG PO ×3 (00:05→16:09)
[2024-07-03] MEDS: NSS 1000 IV ×2 (00:05→07:27)
[2024-07-03] MEDS: MORPHINE SULFATE 2 MG IV ×3 (00:05→13:08)
[2024-07-03 05:57] LABS: Hematocrit 37.3 % (39.0-52.0); Hemoglobin 12.5 g/dL (13.0-18.0); Mean Corp Hgb Conc. 33.5 g/dL (33.0-37.0); Mean Corpuscular Volume 89.4 fL (80.0-94.0); Mean Platelet Volume 9.8 fL (7.4-10.4); Platelet Count 353 10^3/uL (130-400); Red Blood Cell Count 4.17 10^6/uL (4.70-6.10); Red Cell Dist. Width 13.3 % (11.5-14.5); White Blood Cell Count 11.6 10^3/uL (4.8-10.8)
[2024-07-03 06:29] LABS: Blood Urea Nitrogen 33 mg/dl (9-20); Calcium 9.4 mg/dl (8.4-10.2); Carbon Dioxide 23 mmol/L (22-30); Chloride 105 mmol/L (98-107); Estimated Creatinine Clearance 76 ml/min; Glucose 164 mg/dl (70-99); Potassium 4.3 mmol/L (3.5-5.1); Sodium 138 mmol/L (135-145); eGFR 58.26
[2024-07-03 07:32] LABS: Glucose - Point of Care 143 mg/dl (70-99)
[2024-07-03] MEDS: NOVOLOG FLEXPEN-MODERATE RESISTANCE SC ×2 (08:35→16:17)
[2024-07-03] MEDS: APRESOLINE 50 MG PO ×2 (08:43→16:09)
[2024-07-03] MEDS: ZESTRIL 40 MG PO (08:44)
[2024-07-03] MEDS: CRESTOR 20 MG PO (08:44)
[2024-07-03] MEDS: ORETIC 25 MG PO (08:44)
[2024-07-03] MEDS: THERAGRAN 1 TABLET PO (08:44)
[2024-07-03] MEDS: NORVASC 10 MG PO (08:56)
[2024-07-03] MEDS: APRESOLINE 10 MG IV ×2 (10:51→17:36)
--- NOTE | 2024-07-03 11:54 | W.PN.NEPH.PH ---
Today's Communication / Plan
-
Okay for discharge from renal standpoint
Assessment/Plan
-
59-year-old with past medical history of isa-ouchgvg-evhhomcme diabetes, hypertension and hyperlipidemia presenting to the emergency department with pain and swelling of the left foot. Being treated for cellulitis and gangrene lower extremities toe.
Renal consult for acute kidney injury creatinine 1.6.
No documentation of hypotensive episode documentation of hypotensive episodes
He did have hypertensive on admission to the ER with systolic blood pressure 200 diastolic blood pressure over 100 requiring IV beta-faith without evidence of any significant drop compromising renal function.
Impression.
Acute kidney injury creatinine 1.6.
Toe gangrene/cellulitis.
Diabetes. Open A1c 10.4> diabetic for 18 years with early stages of diabetic retinopathy
Hypertension.
.
Plan.
Uncertain as to the acuity but risk factors include angiogram using IV contrast hypertensive urgency on admission and infectious GN/CONSTANTINO (unlikely) , initiating glomerular modifying medications on this hospital stay lisinopril and addition of
thiazide diuretic.
Urine shows 2+ albumin secondary to diabetes
No indication for renal ultrasound at this time as renal function does not improve.
Recheck labs in AM.
Will be candidate for SGLT2 inhibitor but will follow him up as an outpatient and discussed that with him as I told him
Creatinine better today
I would suggest to increase hydralazine to 100 mg 3 times daily with blood pressures in the 180s although he was given normal saline which certainly could have contributed
Discontinue IV fluids
-
-
Date of Service: July 03, 2024
CC / HPI / ROS
-
Chief Complaint:
Presents with foot infection
History of Present Illness:
Presents with a foot infection on antibiotics with LINDY
Review of Systems:.
No chest pain or shortness of breath
Labs
-
Labs:
WBC 11.6 10^3/uL (4.8-10.8) H 07/03/24 05:22
RBC 4.17 10^6/uL (4.70-6.10) L 07/03/24 05:22
Hgb 12.5 g/dL (13.0-18.0) L 07/03/24 05:22
Hct 37.3 % (39.0-52.0) L 07/03/24 05:22
Plt Count 353 10^3/uL (130-400) 07/03/24 05:22
Sodium 138 mmol/L (135-145) 07/03/24 05:22
Potassium 4.3 mmol/L (3.5-5.1) 07/03/24 05:22
Chloride 105 mmol/L (98-107) 07/03/24 05:22
Carbon Dioxide 23 mmol/L (22-30) 07/03/24 05:22
BUN 33 mg/dl (9-20) H 07/03/24 05:22
Creatinine 1.4 mg/dL (0.7-1.3) H 07/03/24 05:22
eGFR 58.26 07/03/24 05:22
Glucose 164 mg/dl (70-99) H 07/03/24 05:22
Calcium 9.4 mg/dl (8.4-10.2) 07/03/24 05:22
Albumin 3.6 g/dl (3.5-5.0) 06/28/24 16:44
Physical Exam
-
Vital Signs:
Vital Signs
Temp Pulse Resp BP Pulse Ox
98.7 F 93 16 189/96 98
07/03/24 07:05 07/03/24 10:51 07/03/24 07:05 07/03/24 10:51 07/03/24 08:52
Respiratory:: Bilateral: CTA
Lung Excursion:: Normal
Abdomen:: Soft
Bowel Sounds:: Normal
Extremity Edema:: None: Bilateral:
[2024-07-03 12:08] LABS: Glucose - Point of Care 230 mg/dl (70-99)
[2024-07-03] MEDS: NOVOLOG FLEXPEN-MODERATE RESISTANCE 3 UNITS SC (13:07)
[2024-07-03] MEDS: ROCEPHIN 2000 MG IV (13:08)
[2024-07-03] MEDS: STERILE WATER FOR INJECTION 20 ML IV (13:08)
--- NOTE | 2024-07-03 13:49 | W.PN.HOSP.TC ---
Today's Communication/Plan
-
d/c after IV abx today
Assessment / Plan
Assessment / Plan
pt is a 59 year old male
Gangrene of left 3rd and tip of 2nd toe due to Suspected peripheral arterial disease--Chronic limb threatening ischemia LLE--blood cultures neg- Wound cultures polymicrobial: proteus mirabilis, streptococcus pyogenes, diptheroids-- Elevated
inflammatory markers- MRI left foot showed likely early osteomyelitis of 3rd toe within middle/distal phalanx; no evidence of osteomyelitis of 4th toe; soft tissue swelling--apprec ID--6 weeks of IV abx with ceftriaxone and oral metronizole--f/u
with podiatry- Given L TBI 0.38, vascular surgery consulted, appreciate recs- Angiogram 07/01 with vascular surg: severe stenosis/occlusions with collateralization on the foot, no named vessel in foot; small vessel obliterative disease; no
endovascular intervention performed.- Will eventually need amputation (doubt abx will do anything for this), timing per vascular/podiatry likely scheduled outpatient-- will need close outpatient followup with podiatry.
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
Hypertensive urgency/Essential hypertension, uncontrolled- Continue home lisinopril 40mg daily- Continue hctz 25mg daily, started this admission- Continue amlodipine 10mg daily, started this admission- Continue PO hydralazine 50mg TID, started this
admission- Continue IV PRN hydralazine - BPs gradually improving, SBP 140s-160 overnight. Continue to monitor.
HLD- continue home rosuvastatin 20mg daily
Obesity due to excess calories
DVT proph
Code status-- Full
Anticipated Discharge: Today
Subjective/Interval History
-
Date of Service: July 03, 2024
pt tells me he is going home today with IV abx
Objective Data
-
Labs:
Laboratory Results
07/03/24
05:22
WBC 11.6 H
Hgb 12.5 L
Hct 37.3 L
Plt Count 353
Sodium 138
Potassium 4.3
Chloride 105
Carbon Dioxide 23
BUN 33 H
Creatinine 1.4 H
Glucose 164 H
Calcium 9.4
Vital Signs:
max temp for 24 hours
07/03/24
07:05
Temp 98.7 F
Vital Signs
Temp Pulse Resp BP Pulse Ox
98.7 F 107 16 166/91 98
07/03/24 07:05 07/03/24 12:18 07/03/24 07:05 07/03/24 12:18 07/03/24 08:52
I&O
07/02/24 07/03/24 07/04/24
06:59 06:59 06:59
Intake Total 1460 / 1460 740 / 740
Balance 1460 / 1460 740 / 740
Review of Systems
-
All other systems: Reviewed and negative
Physical Exam
-
General: Well Developed, Well Nourished and No Apparent Distress
HEENT: Normocephalic and Atraumatic
Respiratory: Clear to Auscultation; Negative Wheezes or Rhonchi
Cardiac: Regular Rhythm and S1/S2; Negative Murmur
GI: Soft, Nontender, Nondistended and Normal Bowel Sounds
Musculoskeletal: No Clubbing and Other (black 3rd toe on left and tip of 2nd toe on left); Negative No Edema
Neuro: Awake
--- NOTE | 2024-07-03 13:54 | CM ---
CM spoke with [facility]. They will be available for tomorrow SOC. Patient will need his dose today inpatient. CM updated hospitalist.
PLAN: Home with IV ABX via [facility].
--- NOTE | 2024-07-03 15:06 | W.DCSUMMARY ---
Discharge Summary
Discharge Data
Date of Admission: 06/28/24
Date of Discharge: 07/03/24
Total time spent discharging patient (in min): 37
-
Pending Results: No
Hospital Course
Primary care physician : Ramon Dickson
Principal Discharge diagnosis : Gangrene of the left third toe and tip of the left second toe due to suspected peripheral arterial disease complicated by diabetes/diabetic neuropathy
Chronic Discharge diagnosis : Type 2 diabetes mellitus, hypertensive urgency with essential hypertension, hyperlipidemia, obesity due to excess calories
Hospital Course : Patient is a 59-year-old male with type 2 diabetes mellitus among other medical issues who presented complaining of pain and swelling of the left foot. In late May, he developed some drainage and swelling of the toes on his
left foot. This did involve the third and fourth toes. He said symptoms have been persistent now for 9 weeks. He denied fevers or chills. He reported swelling and redness. He denied any prior such episodes. Upon arrival to the emergency
department, he was hypertensive with blood pressure of 200/110 and a pulse of 100. He was noted to have what appears to be gangrene of the third toe and tip of the second toe on the left foot. Patient was admitted.
Problem #1: Gangrene of the left third toe and tip of the left second toe due to suspected peripheral arterial disease complicated by diabetes/diabetic neuropathy. Patient was admitted and seen in consultation by infectious disease, podiatry,
vascular surgery. MRI of the left foot showed likely early osteomyelitis of the third toe within the middle to distal phalanx. There is no evidence of osteomyelitis on the fourth toe. Broad spectrum antibiotics were started. Blood cultures were
negative. Wound culture as expected showed polymicrobial organisms including Proteus mirabilis, Streptococcus pyogenes, and diphtheroids. He also had elevated inflammatory markers. He was seen in consultation by vascular surgery and was noted to
have abnormal arterial brachial indices. Angiogram was done July 02, 2023 with vascular surgery. He had severe stenosis and occlusions with collateralization of the foot and small vessel obliterative disease. There was no endovascular
intervention performed. However, due to the angiogram patient developed acute kidney injury. He was seen in consultation by nephrology and IV fluids were started. Creatinine peaked at 1.6 and is down to 1.4 on the day of discharge. He is not yet
at baseline which was as low as 0.9 earlier in his hospitalization. He will follow-up with podiatry and likely will need an amputation timing to be determined. For now, he will be discharged home with 6 weeks of IV ceftriaxone 2 g daily and oral
metronidazole 3 times daily also for 6 weeks.
Problem #2: Hypertensive urgency with essential hypertension uncontrolled. Blood pressure has been uncontrolled here in the hospital. He has been started on hydrochlorothiazide. His home dosing of lisinopril 40 was continued. However, his
creatinine peaked at 1.6 as mentioned with decreased down to 1.4. Ideally, would like to hold lisinopril until creatinine returns to normal. However, creatinine is improving and given the fact that his blood pressure is uncontrolled, we will elect
to continue lisinopril at this time. Prescription for outpatient labs (basic metabolic profile) to be drawn Friday, July 05, 2024 has been given to the patient. He will be discharged on lisinopril, hydrochlorothiazide, amlodipine, and
hydralazine. It may be reasonable as an outpatient to obtain renal artery ultrasound to evaluate for renal artery stenosis.
Problem #3: All other medical issues. This includes type 2 diabetes mellitus, hyperlipidemia, obesity due to excess calories. In regards to his type 2 diabetes mellitus, this is uncontrolled. Hemoglobin A1c is 10.4 on admission. He does not own
a monitor nor does he check his blood sugars. He was seen in consultation by diabetic nurse practitioner and continued on Ozempic. His metformin is on hold due to creatinine of 1.4. His other medical issues were stable during this
hospitalization. Medications were continued as able.
Patient will get his last dose of IV antibiotics at 2 PM today. He has been cleared for discharge afterwards. [facility] will come out Friday for teaching and delivery of antibiotics for home. Patient does have a PICC line in place. Patient is
stable for discharge home at this time. If there are any questions regarding this dictation or his hospital stay, please not hesitate to call. Our office number is [phone].
Time for discharge 37 minutes.
Important imaging findings :
LOWER EXTREMITY MRI IMPRESSION:
There is soft tissue swelling along the third and fourth toes. There is ossification of the DIP of the third toe findings of likely early osteomyelitis within the middle/distal phalanx. There is no evidence of osteomyelitis involving the fourth toe.
There is T2/STIR hyperintense signal within the distal aspect of the distal phalanx of the great toe without adjacent soft tissue abnormality or T1 signal abnormality in which is favored to represent marrow edema.
PERIPHERAL ARTERIAL ULTRASOUND WITH ABIs IMPRESSION:
1. Right ankle-brachial index unobtainable secondary to vascular noncompliance. The toe brachial index is mildly to moderately diminished at 0.48. There are multiphasic waveforms from the common femoral artery through the popliteal artery and no
flow-limiting stenosis is identified.
2. Left ankle-brachial index unobtainable secondary to vascular noncompliance. The left toe brachial index is moderately diminished at 0.38. As on the right, there are expected multiphasic waveforms from the common femoral artery through the
popliteal artery and no focal flow-limiting stenosis is identified.
Procedure findings :
ARTERIOGRAM:
Preoperative diagnosis: Chronic limb threatening ischemia left lower extremity with gangrene left foot
Postoperative diagnosis: Same
Procedure:
1. Duplex assisted right common femoral artery cannulation.
2. Aortogram and pelvic angiogram.
3. Left lower extremity arteriogram with selective catheterization of left superficial femoral artery via right common femoral artery puncture.
4. Right femoral angiogram.
5. Supervision and interpretation.
At this point I felt that there is nothing endovascular to render for this distribution of small vessel obliterative disease. The catheter was withdrawn. Right femoral angiogram was performed through the sheath. Demonstrated good puncture in the
right common femoral artery. Catheters and wires were withdrawn. The patient will be transported to the recovery room where the sheath will be withdrawn and manual pressure applied to the puncture site.
Discharge Plan
-
Patient Disposition: Home with Home Care
Discharge Diagnosis/Procedures: Chronic limb ischemia left lower extremity
Gangrene/necrosis of toe
Diabetic left foot osteomyelitis
Small vessel disease
Uncontrolled hypertension
Acute kidney injury
Condition: Good
Diet: As tolerated and Diabetic, Carb Controlled
Activity: No strenuous activity
Additional Activity: No strenuous activity or lifting greater than 10 pounds for 2 weeks
Driving Restrictions: No driving for 24 hours
Bathing Restrictions: OK to Shower
Other Services: VN
Activity Restrictions/Additional Instructions:
Wound Care Instructions
L 3rd and 4th toe: [place] eschar with Betadine daily.
Follow up with Mechanical Operator
Follow up with your Primary Care Provider
-Monitor blood pressure
-Check your blood sugars as directed
Instructions: Diabetes and diet, Foot care for people with diabetes, Keeping track of your blood sugar, Type 2 diabetes - Discharge instructions, BLOOD PRESSURE
Stand Alone Forms: DC Instr - Vascular OR
Referrals:
Ramon Dickson MD [Family Provider] - in less than 1 week (Call your Primary Care Provider to schedule follow up appointment within 1 week of leaving the hospital)
Aníbal De La Garza MD [Active] - 07/09/24 4:45 pm (You have an appointment with Vascular Surgery scheduled on 07/09/24 at 4:45 pm. )
David Espinal MD [Active] - in less than 1 week (Call the [facility] office to schedule a follow up appointment.)
Additional Discharge Medication Instructions: Blood pressure medications:
*NEW* Hydralazine-- Take 1 tablet three times per day.
*NEW* Amlodipine-- Take 1 tablet once per day.
*NEW* Hydrochlorothiazide-- Take 1 tablet once per day.
Continue Lisinopril-- Take 1 tablet once per day.
HOLD metformin until your creatinine is below 1.3--discuss with your primary care provider
Antibiotics:
Metronidazole-- Take 1 tablet three times per day.
IV ceftriaxone infusions daily as directed.
Continue your ozempic, rosuvastatin, multivitamin.
For any medication questions or refills, please call your Primary Care Provider.
Prescriptions:
New
(DME) Contour Next Test Strips Strip
Qty: 60 0RF
Rx Instructions:
Pt Testing 2 times a day
(DME) lancets [Microlet Lancet] Misc
Qty: 60 0RF
Rx Instructions:
Pt testing 2 times a day
metronidazole 500 mg Tablet
500 mg PO Q8 42 Days Qty: 126 0RF
hydralazine 50 mg Tablet
50 mg PO TID Qty: 90 0RF
hydrochlorothiazide 25 mg Tablet
25 mg PO DAILY Qty: 30 0RF
ceftriaxone 2 gram Recon Soln
2,000 mg IV Q24H Qty: 0 0RF
amlodipine 10 mg tablet
10 mg PO DAILY Qty: 30 0RF
Continued
Ozempic 2 mg/dose (8 mg/3 mL) Pen Injector
2 mg SC ESTRADA
therapeutic multivitamin Tablet
1 tab PO DAILY Qty: 0 0RF
lisinopril 40 mg Tablet
40 mg PO DAILY Qty: 0 0RF
metformin 750 mg Tablet Extended Release 24 Hr
750 mg PO DAILY Qty: 0 0RF
rosuvastatin 20 mg Tablet
20 mg PO DAILY Qty: 0 0RF
Discharge Orders:
Discharge Patient (As Directed); Ordered 07/03/24
Ordered By: Isabelle Power
Discharge Date and Time
Print Language: KAZAKH
[2024-07-03 16:16] LABS: Glucose - Point of Care 114 mg/dl (70-99)
[2024-07-03] MEDS: FLUSH (NSS) 2 FLUSH IV (17:37)
--- NOTE | 2024-07-03 17:40 | PTCARENOTE ---
Pt's BP at 1500 188/104, HR 97, pt asymptomatic. Made Dr. Power aware and she indicated to administer ordered Hydralazine 50mg po and then recheck in a hr prior to pt possibly being discharged.
Followed up BP at 1715, and 178/94, HR 96 after po Hydralazine. Made Dr. Powre aware. Ok with administering Hydralazine 10mg IV now and then discharge pt. Updated pt on plan.
== END 2024-07-03 19:40 | disposition home health service (06) | DRG 300 ==
LOC: 4 EAST ACU 20:02
PROVIDERS: Emergency Medicine; Radiology Diagnostic Radiology; Student in an Organized Health Care Education/Training Program; ADMITTING PHYSICIAN Internal Medicine; ATTENDING PHYSICIAN Internal Medicine; CONSULT PHYSICIAN Student in an Organized Health Care Education/Training Program; EMERGENCY PHYSICIAN Emergency Medicine; FAMILY PHYSICIAN Family Medicine; OTHER PHYSICIAN Internal Medicine Nephrology; OTHER PHYSICIAN Student in an Organized Health Care Education/Training Program; OTHER PHYSICIAN Surgery Vascular Surgery
PROC: B41C1ZZ Fluoroscopy of Pelvic Arteries using Low Osmolar Contrast (ICD-10-PCS; 2024-07-01)
PROC: B4101ZZ Fluoroscopy of Abdominal Aorta using Low Osmolar Contrast (ICD-10-PCS; 2024-07-01)
PROC: 02HV33Z Insertion of Infusion Device into Superior Vena Cava, Percutaneous Approach (ICD-10-PCS; 2024-07-01)
PROC: B41G1ZZ Fluoroscopy of Left Lower Extremity Arteries using Low Osmolar Contrast (ICD-10-PCS; 2024-07-01)
DX: E11.52 Type 2 diabetes mellitus with diabetic peripheral angiopathy with gangrene (principal); M86.8X7 Other osteomyelitis, ankle and foot; N17.9 Acute kidney failure, unspecified; E11.621 Type 2 diabetes mellitus with foot ulcer; L03.032 Cellulitis of left toe; E11.319 Type 2 diabetes mellitus with unspecified diabetic retinopathy without macular edema; I10 Essential (primary) hypertension; E11.628 Type 2 diabetes mellitus with other skin complications; E78.00 Pure hypercholesterolemia, unspecified; I16.0 Hypertensive urgency; E66.09 Other obesity due to excess calories; Z68.36 Body mass index [BMI] 36.0-36.9, adult; E11.65 Type 2 diabetes mellitus with hyperglycemia; E11.42 Type 2 diabetes mellitus with diabetic polyneuropathy; F17.290 Nicotine dependence, other tobacco product, uncomplicated; Z79.4 Long term (current) use of insulin; Z79.84 Long term (current) use of oral hypoglycemic drugs; Z79.899 Other long term (current) drug therapy; Z91.199 Patient's noncompliance with other medical treatment and regimen due to unspecified reason; L97.529 Non-pressure chronic ulcer of other part of left foot with unspecified severity
CPT/HCPCS: 36247; 71045; 73620; 73720; 75625; 75716; 80048; 80053; 81003; 81015; 81099; 82077; 82570; 82962; 83036; 83735; 84300; 85025; 85027; 85652; 86140; 87040; 87070; 87077; 87147; 87186; 87205; 93922; 93925; 93926; 93971; 97162; 97166; 99285; A9575; C1769; C1894; Q9967

== ENCOUNTER 2024-08-23 20:15 | Inpatient (IN) | payer BC, SELFPAY ==
[2024-08-23] VITALS (12 sets, daily range): BP systolic 170–199; BP diastolic 84–102; BMI 35.3
[2024-08-23 15:41] LABS: % Basophils 0.2 % (0-2); % Immature Granulocytes 0.3 % (0-0.5); % Lymphocytes 16.4 % (20.5-51.1); % Monocytes 9.3 % (1.7-9.3); % Neutrophils 73.8 % (42.2-75.2); Absolute Lymphocytes 1.5 10^3/uL (1.2-3.4); Absolute Monocytes 0.9 10^3/uL (0.1-0.6); Absolute Neutrophils 6.8 10^3/uL (1.4-6.5); Hemoglobin 10.5 g/dL (13.0-18.0); Mean Corp Hgb Conc. 33.9 g/dL (33.0-37.0); Mean Corpuscular Hgb 29.5 pg (27.0-31.0); Mean Corpuscular Volume 87.1 fL (80.0-94.0); Mean Platelet Volume 9.7 fL (7.4-10.4); Nucleated Red Blood Cells % 0 % (-); Platelet Count 339 10^3/uL (130-400); Red Blood Cell Count 3.56 10^6/uL (4.70-6.10); Red Cell Dist. Width 13.2 % (11.5-14.5); White Blood Cell Count 9.2 10^3/uL (4.8-10.8)
[2024-08-23 16:03] LABS: ALT (SGPT) 24 U/L (0-50); AST (SGOT) 19 U/L (17-59); Alkaline Phosphatase 155 U/L (38-126); Blood Urea Nitrogen 29 mg/dl (9-20); Calcium 9.1 mg/dl (8.4-10.2); Carbon Dioxide 22 mmol/L (22-30); Chloride 103 mmol/L (98-107); Glucose 308 mg/dl (70-99); Potassium 4.6 mmol/L (3.5-5.1); Sodium 132 mmol/L (135-145); Total Bilirubin 0.5 mg/dl (0.2-1.3); Total Protein 6.8 g/dl (6.3-8.2); eGFR 58.26
--- NOTE | 2024-08-23 17:45 | ED.SKININJ ---
HPI-Injury
General
Chief Complaint: Skin Problem
Source: patient
Exam Limitations: none
Time Seen by Provider: 08/23/24 17:31
Nursing documentation reviewed up to this point in time: agreed with
History of Present Illness-Injury
Is this injury a work related problem?: No
Is pt an associate of [facility]?: No
Initial Injury comments:
Patient to ED with complaint of increasing pain to left foot. He was admitted her in June for gangrene to left 3rd toe, tip of 4th toe. He was evaluated by vascular, ID and podiatry. He was treated with IV antibiotics and discharged home with 6
week course of IV antibiotics. He was instructed to follow up with podiatry but did not follow thru. States he finished IV antibiotics 1 week ago and foot is becoming increasingly more painful. Gangrenous tissue now encompasses toes 3,4 entirely
and now extends into dorsum of foot over metatarsals 3,4. He denies fever/chills. Brought self to ED for eval.
Past History
Past History
ED Past Medical History: HTN, Hypercholesterolemia and IDDM
ED Past Surgical History: Orthopedic (ORIF pelvic fx 2016)
Social History
Tobacco: Other (occasional cigar)
Alcohol: Occasional
Drug: None
Employment: Employed
Review of Systems
Review of Systems
Allergies reviewed?: Yes
All Other Systems: ROS reviewed and negative except as documented in HPI and ROS
Constitutional: Reports no symptoms
Musculoskeletal: Reports joint pain (pain to left foot)
Skin: Reports other (gangrene left toes 3,4, distal dorsal left foot)
Neurological: Reports no symptoms
Psychiatric: Reports no symptoms
Phy Exam
General Physical Exam
General Presentation: mild distress
General age: appears stated age
General Skin: warm and dry
General Habitus: normal
General Mental: alert
Musculoskeletal Exam
Musculoskeletal Exam: other (Left dorsalis pedis pulse by doppler. Unable to locate posterior tibial pulse)
Skin Exam
Skin Exam: other (gangrene left toes 3,4, extending to distal dorsal foot over 3rd and 4th metatarsal)
Psychiatric Exam
Psychiatric Exam: normal mood/affect
Course
Orders/Labs/Results
Orders:
Orders
08/23/24 Dinner
2000 calorie (17 carb) Diabetic
08/23/24 15:26
Foot, Left 3 View [CR Foot - Left Min 3 Views] Urgent
Comment:
Reason For Exam: foot infection
08/23/24 15:29
Complete Blood Count/With Diff Urgent
08/23/24 15:30
Comprehensive Metabolic Panel Urgent
08/23/24 18:14
Consult Podiatry [PODIATRY CONSULT] Urgent
Consulting Provider: Puneet Selby
Was physician already notified: Yes
08/23/24 18:32
Vancomycin [Vancocin] 2,000 mg 0.9% Sodium Chloride 500 ml [Nss] 500 ml IV NOW
08/23/24 19:46
Admit/Transfer Patient As Directed
Co-Sign Provider:
Level of Care: Inpatient admission
Assign to:: Medical/Surgical
Physician / Group: Htay
Diagnosis: Left Foot Gangrene
Reason for Hospitalization: Podiatry Consult
Expected length of stay greater than two midnights?: Yes
ELOS- Estimated Length of Stay in days: 3
I certify the patient meets the requirements for IP care: Yes
PRN Pain Medication Management As Directed
May give lesser potent ordered pain med per pt: Yes
preference::
Protocol:: Medication orders for pain may be administered in a
manner that supports deferring to patient preference
when the pt is:
- Requesting an ordered lesser potent pain medication.
Least to most potent pain medications are defined
as: acetaminophen < NSAID < tramadol < opioids
(morphine, oxycodone, hydromorphone).
- Requesting a lesser dose of the same medication IF
ORDERED.
- Requesting a less intrusive route of administration
if both routes are prescribed by the provider (PO <
IV).
08/23/24 19:48
Code Status As Directed
Resuscitation Status: Full Code
08/23/24 21:33
Acetaminophen [Tylenol] 650 mg PO Q4HPRN PRN
Dextrose 50%-Water [Dextrose 50% Syringe] 12.5 grams IV [id number] PRN
Glucagon [GlucaGen] 1 mg IM PRN PRN
08/23/24 21:33
WOUND/OSTOMY CONSULT Routine
Reason for Consult: left foot gangrene
Activity As Directed
Activity Level: Out of Bed-Early Mobility
With Assistance
Bedside Glucose Monitoring As Directed
Frequency: AC&HS
Additional Instructions:: Change to q6h if pt on TPN, tube feeding or not eating
I&O [Intake/ Output] As Directed
Frequency: q12h
Vital Signs As Directed
Frequency: Per unit guidelines
Weight As Directed
Frequency: Daily
DX Deep Vein Thrombosis Video Routine
08/24/24 00:00
Heparin 5,000 units SC Q8
08/24/24 06:00
Basic Metabolic Panel IN AM
Complete Blood Count/No Diff IN AM
08/24/24 07:30
Insulin Aspart Corrective Mod [Novolog Flexpen-Moderate Resistance] See Protocol SC AC
08/24/24 08:00
Amlodipine [Norvasc] 10 mg PO DAILY
HydrALAZINE [Apresoline] 50 mg PO TID
Lisinopril [Zestril] 40 mg PO DAILY
Rosuvastatin Calcium [Crestor] 20 mg PO DAILY
08/26/24 11:00
DC Protocol for Telemetry ONCE
Abnormal Lab Results
08/23/24 08/23/24
15:29 15:30
RBC 3.56 L 10^6/uL
(4.70-6.10)
Hgb 10.5 L g/dL
(13.0-18.0)
Hct 31.0 L %
(39.0-52.0)
Absolute Neuts (auto) 6.8 H 10^3/uL
(1.4-6.5)
Absolute Monos (auto) 0.9 H 10^3/uL
(0.1-0.6)
Lymphocytes % 16.4 L %
(20.5-51.1)
Sodium 132 L mmol/L
(135-145)
BUN 29 H mg/dl
(9-20)
Creatinine 1.4 H mg/dL
(0.7-1.3)
Glucose 308 H mg/dl
(70-99)
Alkaline Phosphatase 155 H U/L
(38-126)
08/23/24 15:29
08/23/24 15:30
Vital Signs
Initial and Last Documented VS:
Initial Vital Signs
Temp Pulse Resp BP Pulse Ox
98.1 F 102 20 174/86 98
08/23/24 15:23 08/23/24 15:23 08/23/24 15:23 08/23/24 15:23 08/23/24 15:23
Last Documented Vital Signs
Temp Pulse Resp BP Pulse Ox
98.1 F 100 16 171/84 95
08/23/24 15:23 08/24/24 00:15 08/24/24 00:15 08/24/24 00:00 08/24/24 00:15
*Radiology
Radiology exam reviewed: radiology read reviewed
*Pulse Oximetry
Patient hypoxic: no
*Critical Care Note
Total Time (30-74mins, 75-104mins- exclusive of procedures): Not Applicable
Update Note
Update Note:
Patient to ED wtih complaint of worsening pain to left foot. Presents with progressing gangrene to left toes3,4, now externding to distal dorasl foot. Distal lateral great toe also discoloring. Xray reviewed, suspect subcutaneous emmphysema.
Zoltan notified of pateint presentation. Pateint will be admitted to hospitalist service. [facility] to consult.
ED Attending Note
-
Portions of this chart may have been created with voice recognition software.� Occasional wrong word or��sound alike� substitutions may have occurred due to the inherent limitations of voice recognition software.
Discharge Plan
Departure
Patient Disposition: Admit
Date of Disposition: 08/23/24
Time of Disposition: 18:01
Presentation/result/management discussed w/ accepting MD/DO: Hospitalist
Condition: Fair
Covid-19: Not Applicable
Discharge Problem:
Gangrene of left foot
Interventions
Interventions:
*Risk Screen - Suicide Last Done: 08/23/24 15:23
*General Assessment Last Done: 08/23/24 15:23
*Neglect/Abuse Screening Last Done: 08/23/24 18:27
*ED- Fall Risk Assessment Last Done: 08/23/24 18:27
*ED COVID-19 Vaccine History Last Done: 08/23/24 18:27
[2024-08-23] MEDS: VANCOCIN 540 MG IV (18:59)
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
[2024-08-23] MEDS: DILAUDID 0.5 MG IV (20:25)
--- NOTE | 2024-08-23 20:37 | W.PN.UPDATE ---
Update Note
Progress Note Update
This note serves as an addendum to the H&P by supervisor advertising dispatch clerks SAIMA Shruti FAGAN
HPI
59M HX HTN, HLD, IDDM, diabetic neuroapthy, PAD BiB self to ER
- worsening Lt foot pain pain to left foot
- was admitted her in June for gangrene to left 3rd toe, tip of 4th toe.
- evaluated by vascular, ID and podiatry
- was treated with IV antibiotics and discharged home with 6 week course of IV antibiotics.
- instructed to follow up with podiatry but did not follow thru.
- he finished IV antibiotics 1 week ago and foot is becoming increasingly more painful.
- Gangrenous tissue now encompasses toes 3,4 entirely and now extends into dorsum of foot over metatarsals 3,4.
- He denies fever/chills.
Vital Signs
Temp Pulse Resp BP Pulse Ox
98.1 F 91 20 199/102 99
08/23/24 15:23 08/23/24 20:18 08/23/24 20:18 08/23/24 20:18 08/23/24 20:18
PE
Gen: Not oxic
HEENT: anicteric, no pallor
Neck: supple
Lungs: CTA
Cor: RRR S1 S2
Abdomen: soft benign
DAMAGE CUTTER: AAO3 NFND
MS:POS Left dorsalis pedis pulse by Doppler. Unable to locate posterior tibial pulse per ER attd
Skin Exam: FOUL ODOR black Lt. toe 3. Black tip of the Lt. toe 2. Gangrene left toes 3,4, extending to distal dorsal foot over 3rd and 4th metatarsal
Psych:appropriate
Abnormal Lab
08/23/24 08/23/24
15:29 15:30
RBC 3.56 L
Hgb 10.5 L
Hct 31.0 L
Absolute Neuts (auto) 6.8 H
Absolute Monos (auto) 0.9 H
Lymphocytes % 16.4 L
Sodium 132 L
BUN 29 H
Creatinine 1.4 H
Glucose 308 H
Alkaline Phosphatase 155 H
Last hospitalist admission: 06/28/24 - 07/03/24
DC Dxs:
- Gangrene of toe 3, tip of the toe 2
- suspected PAD
- Diabetes/diabetic neuropathy
Lt. Foot XR
Soft tissue swelling.
Findings suspicious for subcutaneous emphysema involving the third and fourth digits, as described.
However, no radiographic evidence to suggest osteomyelitis.
ASSESSMENT & PLAN
Infected FOUL ODOR dry gangrene of left toe 3 and tip of toe 2 due to small vessel obliterative PAD
Chronic limb threatening ischemia left lower extremity with gangrene left foot
HX Polymicrobial POS (proteus mirabilis, streptococcus pyogenes, diphtheroids-- Elevated inflammatory markers
- 07/01/24 Angiogram by vascular Surg: severe stenosis/occlusions with collateralization on the foot, no named vessel in foot; small vessel obliterative disease;
- 06/29/24 MRI left foot - likely early OM toe 3 middle/distal phalanx; no evidence of OM 4th toe; soft tissue swelling
- completed 6 weeks IV ABX ( CFTX and metronidazole) 1week ago --f/u with podiatry
- no endovascular intervention performed.
- timing per vascular/podiatry likely scheduled outpatient
- s/p IV vancomycin at ER - cont IV Vancomycin and IV CFP
- NPO after MN inc case OR
- Podiatry consulted - TMT amputation ?
T2DM
last A1C 10.4- poorly controlled EDGE KITTER
- Hold metformin
- Mod ISS low
HTN urgency due to missed schedule hydralazine
Essential hypertension, uncontrolled-
- EDGE KITTER lisinopril , amlodipine and Hydralazine
- Hold HCTZ
- IV PRN hydralazine - BPs gradually improving, SBP 140s-160 overnight. Continue to monitor.
HLD
- EDGE KITTER rosuvastatin 20mg daily
Class III Obesity BMI 35 due to excess calories
Affects all aspects of life
DVT Px: SQH
Full code
IP MS
[2024-08-23] MEDS: APRESOLINE 50 MG PO (20:56)
--- NOTE | 2024-08-23 21:43 | W.PN.SURGUPD ---
Surgical Update
Surgical Update
59 yo M with worsening gangrene of forefoot with infection. Currently hemodynamically stable. Will keep NPO after midnight for possible OR tomorrow 08/24
--- NOTE | 2024-08-23 22:06 | PHA.VAN.IN ---
Assessment
- Assessment
Renal Function: Appears elevated from baseline (06/29/24 SCR = 0.7)
Concomitant Antimicrobials: CEFEPIME
- Previous Dosing Experience
Previous Regimen: 1750MG IV Q12H
Date of Regimen: 06/29/24
Provided Trough of: 11.4 PREDICTED
Provided AUC of: 502 PREDICTED
Patient's SCR is: Elevated compared to previous dosing experience (06/29/24 SCR = 0.7)
Patient's weight is: Decreased compared to previous dosing experience (06/29/24 119.3 KG)
Plan
- Plan
Initial / Loading Dose: 2GM
Maintenance Regimen: DOSING BY RANDOM LEVEL
Monitoring: RANDOM VANCOMYCIN LEVEL 08/24/24 AM
Pharmacokinetics Vancomycin I
- -
Patient Age: 59
Patient Sex: Male
Vancomycin Day #: 1
Indication: Diabetic Foot (GANGRENE)
Requesting Provider: GRACIA
Height / Weight:
Height 5 ft 11 in
Actual Weight 114.8 kg
Pertinent Past Medical History: ADMIT FOR GANGRENE 06/28/24
- Vital Signs / Lab Results
Temp Pulse Resp BP Pulse Ox
98.1 F 93 14 197/93 99
08/23/24 15:23 08/23/24 21:20 08/23/24 21:20 08/23/24 21:20 08/23/24 21:20
Lab Results - Hematology
08/23/24
15:29
WBC 9.2
Lab Results - Chemistry
08/23/24
15:30
BUN 29 H
Creatinine 1.4 H
Albumin 4.0
[2024-08-23] MEDS: TRANDATE 10 MG IV (22:38)
[2024-08-23] MEDS: MAXIPIME 2000 MG IV (22:39)
[2024-08-23] MEDS: STERILE WATER FOR INJECTION 10 ML IV (22:39)
[2024-08-23] MEDS: ROXICODONE 5 MG PO (22:59)
[2024-08-24] VITALS (23 sets, daily range): BP systolic 117–174; BP diastolic 69–87
[2024-08-24] MEDS: HEPARIN 5000 UNITS SC ×4 (00:21→23:39)
[2024-08-24] MEDS: ROXICODONE 5 MG PO ×3 (03:24→23:42)
[2024-08-24 05:56] LABS: Glucose - Point of Care 156 mg/dl (70-99)
[2024-08-24] MEDS: MAXIPIME 2000 MG IV ×3 (06:03→22:11)
[2024-08-24] MEDS: STERILE WATER FOR INJECTION 10 ML IV ×3 (06:03→22:11)
[2024-08-24 06:23] LABS: Hematocrit 29.6 % (39.0-52.0); Mean Corp Hgb Conc. 33.8 g/dL (33.0-37.0); Mean Corpuscular Hgb 29.9 pg (27.0-31.0); Mean Corpuscular Volume 88.4 fL (80.0-94.0); Platelet Count 331 10^3/uL (130-400); Red Blood Cell Count 3.35 10^6/uL (4.70-6.10); Red Cell Dist. Width 13.3 % (11.5-14.5)
[2024-08-24 06:50] LABS: Blood Urea Nitrogen 20 mg/dl (9-20); Calcium 9.4 mg/dl (8.4-10.2); Carbon Dioxide 26 mmol/L (22-30); Chloride 108 mmol/L (98-107); Estimated Creatinine Clearance 104 ml/min; Glucose 134 mg/dl (70-99); Potassium 4.3 mmol/L (3.5-5.1); Sodium 140 mmol/L (135-145); eGFR > 60.00
[2024-08-24 06:57] LABS: Vancomycin Random 11.5 ug/ml
[2024-08-24 07:31] LABS: Glucose - Point of Care 121 mg/dl (70-99)
--- NOTE | 2024-08-24 08:06 | W.PN.HOSP.TC ---
Today's Communication/Plan
-
see plan
Assessment / Plan
Assessment / Plan
Gen: NAD, AAOx3.
Eyes: EOMI, PERRLA, no scleral icterus.
Neck: supple.
CV: RRR, +S1/S2, no m/r/g.
Resp: CTAB, no rales, wheezes, or rhonchi.
Abd: +BS, soft, NT, ND
Skin: No rashes. L foot with gangrene 1st, 3rd, 4th toes.
Neuro: CN 2-12 intact, non-focal.
Psych: Normal mood and affect.
L foot Xray: Soft tissue swelling. Findings suspicious for subcutaneous emphysema involving the third and fourth digits, as described. However, no radiographic evidence to suggest osteomyelitis.
Worsening Gangrene Left Foot:
-case discussed with Podiatry, vascular to see (was being evaluated for Limflow procedures)
-cont Vanco/Cefepime
DM2:
-HgbA1c 10.4 in June 2024
-Patient maintained on Ozempic as outpatient
-Holding metformin during hospitalization
-SSI/accuchecks
Essential Hypertension
-Continue amlodipine, hydralazine and lisinopril
-Hold HCTZ due to mildly elevated Cr on admission
Hyperlipidemia
-Continue Crestor
Obesity due to excess calories
FULL/Heparin
Anticipated Discharge: > 48 hours
Subjective/Interval History
-
Date of Service: August 24, 2024
No new complaints.
Objective Data
-
Labs:
Laboratory Results
08/24/24
05:55
WBC 8.0
Hgb 10.0 L
Hct 29.6 L
Plt Count 331
Sodium 140 D
Potassium 4.3
Chloride 108 H
Carbon Dioxide 26
BUN 20
Creatinine 1.0
Glucose 134 H
Calcium 9.4
Vital Signs:
Vital Signs
Temp Pulse Resp BP Pulse Ox
98.1 F 96 10 174/86 98
08/23/24 15:23 08/24/24 08:00 08/24/24 08:00 08/24/24 08:00 08/24/24 08:00
[2024-08-24] MEDS: NOVOLOG FLEXPEN-MODERATE RESISTANCE SC ×3 (08:17→17:50)
--- NOTE | 2024-08-24 08:44 | PHA.VAN.FU ---
Vancomycin Assessment / Plan
- Assessment
Renal Function: SCR Decreasing
WBC's are: WNL
Concomitant Antimicrobials: cefepime
- Assessment - Therapeutic Drug Monitoring
Random Level: 11.5 - drawn ~11H after 2g loading dose
- Dosing Plan
Adjust Regimen to: Vanc 1250mg Q12H - first dose now then 1800
New Regimen Predicts: AUC (427), Peak (27.3), Trough (10.5)
Will cautiously start scheduled dosing
If SCR continues to improve further, may require dose adjustment
- Monitoring Plan
No level(s) ordered at this time: consider levels in next few days
- Follow Up
Pharmacy will continue to follow.
Vancomycin Follow UP
- -
Patient Age: 59
Patient Sex: Male
Vancomycin Day #: 2
Indication: Diabetic Foot
Requesting Provider: Marlin Grissom
Pertinent Antimicrobial Allergies:
NKDA
Height / Weight:
Height 5 ft 11 in
Actual Weight 114.8 kg
Pertinent Past Medical History: BMI ~35, DM II
- Vital Signs / Lab Results
Temp Pulse Resp BP Pulse Ox
98.2 F 96 10 174/86 98
08/24/24 07:15 08/24/24 08:00 08/24/24 08:00 08/24/24 08:00 08/24/24 08:00
Lab Results - Hematology
08/23/24 08/24/24
15:29 05:55
WBC 9.2 8.0
Lab Results - Chemistry
08/23/24 08/24/24
15:30 05:55
BUN 29 H 20
Creatinine 1.4 H 1.0
Estimated Creat Clear 104
Albumin 4.0
Therapeutic Drug Monitoring
Random Vancomycin 11.5 ug/ml 08/24/24 05:55
--- NOTE | 2024-08-24 09:03 | WOUNDNOTE ---
WOC RN NOTE: Reviewed chart. Patient followed by podiatry and plan is for OR today. TT with Dr. Beasley and plan is to cancel WOC RN consult at this time.
[2024-08-24] MEDS: APRESOLINE 50 MG PO ×3 (09:25→22:10)
[2024-08-24] MEDS: NORVASC 10 MG PO (09:26)
[2024-08-24] MEDS: ZESTRIL 40 MG PO (09:26)
[2024-08-24] MEDS: CRESTOR 20 MG PO (09:27)
[2024-08-24] MEDS: VANCOCIN 275 MG IV ×2 (09:27→18:35)
--- NOTE | 2024-08-24 11:09 | CM ---
CM met with pt bedside
Pt resides with his mother in 2nd floor apartment with elevator access
Indep with ADLs, denies use if DMEs
Admitted in June 2024 and dc home with IV abx [facility] which he has completed
PCP- Ramon Dickson
Rx- [facility]
Discharge Disposition- home, follow for needs
[2024-08-24 11:49] LABS: Glucose - Point of Care 125 mg/dl (70-99)
--- NOTE | 2024-08-24 12:30 | PTCARENOTE ---
Patient pleasant, withdrawn. Patient had 10/10 left foot pain, Roxicodone given with good relief. Patient OOB with a steady gait and a single point cane. Patient left foot with foul odor, scan serous drainage, PACKER DRIED BEEF. Pedal pulse not palpable, right
pedal pulse weak. Patient for OR today, patient made aware of plan of care.
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
[2024-08-24 16:21] LABS: Glucose - Point of Care 130 mg/dl (70-99)
--- NOTE | 2024-08-24 16:26 | W.PN.SURGUPD ---
Surgical Update
Surgical Update
59 yo M s/p left open 3rd/4th partial ray amputations
-Dressings to remain C/D/I
-Heel WBAT to LLE for transfers only
-No helen purulence, but tissue with extensive myonecrosis and poor perfusion
-Will defer to vascular surgery for further workup, to consider Limflow procedure
-Continue IV antibiotics per ID recs, obtained 1x path and 1x culture
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
--- NOTE | 2024-08-24 18:47 | PTCARENOTE ---
Patient admitted from the [facility] post amputation of his third and fourth toes on his left foot for gangrene.The patient was seen first in the emergency room for a worsening infection of his left foot.The patient is alert and oriented x3.He denies any
pain.The dressing is intact without drainage.Popliteal pulse is palpable.The patient is in his bed with the call walker in reach.
[2024-08-24 22:11] LABS: Glucose - Point of Care 251 mg/dl (70-99)
[2024-08-25 03:20] VITALS: BP 133/74
[2024-08-25] MEDS: MAXIPIME 2000 MG IV ×3 (05:23→21:53)
[2024-08-25] MEDS: STERILE WATER FOR INJECTION 10 ML IV ×3 (05:23→21:52)
[2024-08-25] MEDS: VANCOCIN 275 MG IV ×2 (05:33→17:38)
[2024-08-25 06:00] VITALS: BMI 34.6
[2024-08-25 07:20] VITALS: BP 159/79
[2024-08-25 07:25] LABS: Glucose - Point of Care 174 mg/dl (70-99)
[2024-08-25] MEDS: ROXICODONE 5 MG PO ×2 (08:12→13:51)
[2024-08-25] MEDS: APRESOLINE 50 MG PO ×3 (08:13→21:56)
[2024-08-25] MEDS: NORVASC 10 MG PO (08:13)
[2024-08-25] MEDS: ZESTRIL 40 MG PO (08:13)
[2024-08-25] MEDS: HEPARIN 5000 UNITS SC ×3 (08:13→23:05)
[2024-08-25] MEDS: CRESTOR 20 MG PO (08:14)
[2024-08-25] MEDS: NOVOLOG FLEXPEN-MODERATE RESISTANCE 1 UNITS SC ×2 (08:19→17:37)
--- NOTE | 2024-08-25 08:38 | W.PN.HOSP.TC ---
Today's Communication/Plan
-
see plan
Assessment / Plan
Assessment / Plan
Gen: NAD, AAOx3.
Eyes: EOMI, PERRLA, no scleral icterus.
Neck: supple.
CV: remains RRR, +S1/S2, no m/r/g.
Resp: CTAB anteriorly, no rales, wheezes, or rhonchi.
Abd: +BS, soft, NT, ND
Skin: No rashes. L foot with C/D/I dressing
Neuro: CN 2-12 intact, non-focal.
Psych: Normal mood and affect.
08/24/24 16:00 Foot - Left Gram Stain - Preliminary
L foot Xray: Soft tissue swelling. Findings suspicious for subcutaneous emphysema involving the third and fourth digits, as described. However, no radiographic evidence to suggest osteomyelitis.
Worsening Gangrene Left Foot:
-s/p L open 3rd/4th partial ray amputations on 08/24/24
-Heel WBAT to LLE for transfers only
-follow Cxs/path
-cont Vanco/Cefepime
-vascular following
DM2:
-HgbA1c 10.4 in June 2024
-Patient maintained on Ozempic as outpatient
-Holding metformin during hospitalization
-SSI/accuchecks
Essential Hypertension
-Continue amlodipine, hydralazine and lisinopril
-Holding HCTZ due to mildly elevated Cr on admission
-if BP remains elevated will increase hydralazine
Other problems:
Hyperlipidemia: cont Crestor
Hyponatremia, resolved
Obesity due to excess calories
FULL/Heparin
Anticipated Discharge: 24 - 48 hours
Subjective/Interval History
-
Date of Service: August 25, 2024
L foot pain has improved.
Objective Data
-
Vital Signs:
Vital Signs
Temp Pulse Resp BP Pulse Ox
98.6 F 92 18 159/79 98
08/25/24 07:20 08/25/24 07:20 08/25/24 07:20 08/25/24 08:13 08/25/24 07:20
I&O
08/24/24 08/25/24 08/26/24
06:59 06:59 06:59
Intake Total 1759
Balance 1759
[2024-08-25 09:58] VITALS: BP 166/82; BP 177/89; PULSE 99; O2SAT 97
--- NOTE | 2024-08-25 10:28 | PN.DE.MGMTRT ---
Insulin Management
- -
08/25/2024: Diabetes Management Consult
59 year old male who was recently hospitalization for gangrene of left 3rd and 4th toes due to PAD complicated by diabetic neuropathy. Patient supposed to follow-up with podiatry or vascular surgery but he dd not followup as instructed. PMH: HTN,
HLD, NIDDM, PAD, Peripheral Neuropathy, and Class II Obesity.
Patient presented to the ED with worsening chronic left foot nonhealing wound due to Diabetic foot infection with possible gangrene. Of note patient is known to our service as we were consulted for his last admission (06/28/24- 07/03/24), for again
uncontrolled diabetes.
Last A1C was 10.4% on 06/28/24. Cr 1.0, eGFR >60, was taking Metformin 750mg daily and Ozempic Q Friday. Was provided with a Contour Next monitor during his last hospital visit.
Pt awake, alert oriented, sitting up in bed, offers no complaints, able to discuss diabetes care plan. Family at bedside.
POD # 1 s/p left open 3rd/4th partial ray amputations, doing well overall.
Glucose stable, 08/24 premeal range was 121 to 130, pt states he was NPO for most of day yesterday. HS blood sugar elevated up to 215, FBG 174.
Will give a time dose of NPH 15 units NOW and start Lantus 15 units @ HS and Glipizide 5mg daily, 1st dose now continue moderate corrective insulin AC.
Will STOP MFM given LINDY Cr 1.4-->1.0 today. Discussed with nurse. Will cont to follow.
Pt will be seen by the Diabetes RN Educator for Insulin instructions tomorrow.
Had a lengthy and detailed discussion about current A1C, implications of uncontrolled diabetes, short and alf complications including poor wound healing. Discussed dietary choices, especially carbohydrates and lean proteins, limiting ordering
out and making all meals at home. Emphasized importance of appropriate follow up with all specialists for ongoing care and encouraged consistent glucose monitoring at home.
Diabetes History
- -
Type of Diabetes: 2 requiring insulin
Pre-Admission Diabetes Regimen
Insulin Pump Settings
IP Diabetes Regimen
08/24/24 08/24/24 08/24/24
11:47 16:19 22:10
POC Glucose 125 H 130 H 251 H
08/25/24
07:23
POC Glucose 174 H
Meal type: Lunch
Patient Education
--- NOTE | 2024-08-25 10:43 | CM ---
CM following re: discharge planning.
reviewed pt's chart, met with [pt.
Pt and OT evaluations noted - home PT/OT and a walker at discharge recommended. CM discussed it with the pt. Pt stated he usually uses a cane, agrees to have a walker. MD to place a script for a walker on the chart, PT to issue a walker.
[facility] choices list provided. Pt preferred [facility]. A referral to [facility] made.
Pt stated his mother will transport home at discharge.
Please fax discharge instructions to [facility] at [phone].
D/c plan: home with [facility], a walker and a family support. Mother to transport at discharge.
CM will follow with discharge plan updates as needed.
[2024-08-25 11:00] VITALS: BP 152/77
--- NOTE | 2024-08-25 11:35 | PHA.VAN.FU ---
Vancomycin Assessment / Plan
- Assessment
Renal Function: No New Labs Today
In the past 24 hrs, patient has been: Afebrile
Concomitant Antimicrobials: cefepime
- Dosing Plan
Continue: Vanc 1250mg Q12H
- Monitoring Plan
No level(s) ordered at this time: consider levels in next few days
will hold off on levels for now to ensure fully accumulated with weight > 100kg
- Follow Up
Pharmacy will continue to follow.
Vancomycin Follow UP
- -
Patient Age: 59
Patient Sex: Male
Vancomycin Day #: 3
Indication: Diabetic Foot
Requesting Provider: Marlin Grissom
Pertinent Antimicrobial Allergies:
NKDA
Height / Weight:
Height 5 ft 11 in
Actual Weight 112.491 kg
Pertinent Past Medical History: BMI ~35, DM II
- Vital Signs / Lab Results
Temp Pulse Resp BP Pulse Ox
98.6 F 92 18 159/79 98
08/25/24 07:20 08/25/24 07:20 08/25/24 07:20 08/25/24 08:13 08/25/24 08:15
Lab Results - Hematology
08/23/24 08/24/24
15:29 05:55
WBC 9.2 8.0
Lab Results - Chemistry
08/23/24 08/24/24
15:30 05:55
BUN 29 H 20
Creatinine 1.4 H 1.0
Estimated Creat Clear 104
Albumin 4.0
Microbiology Results
08/24/24 16:00 Gram Stain - Preliminary
Foot - Left
Therapeutic Drug Monitoring
Random Vancomycin 11.5 ug/ml 08/24/24 05:55
[2024-08-25 12:07] LABS: Glucose - Point of Care 216 mg/dl (70-99)
--- NOTE | 2024-08-25 12:31 | VNURNOTE ---
Home Health Liaison met with patient and family at bedside to discuss [facility] nurse/therapy, visits, schedule and homebound status. Patient is agreeable and understands that visits at home will be 2-3 x per week to assess and teach medical management.
Patient is aware that [facility] will contact them for start of care in 1-2 days after discharge from .
[facility] referral completed in [facility].
[2024-08-25] MEDS: NOVOLOG FLEXPEN-MODERATE RESISTANCE 3 UNITS SC (12:47)
[2024-08-25] MEDS: GLUCOTROL 5 MG PO (13:01)
[2024-08-25 15:04] LABS: Glucose - Point of Care 216 mg/dl (70-99)
[2024-08-25] MEDS: NOVOLIN N vial 0.15 UNITS SC (15:05)
[2024-08-25 15:20] VITALS: BP 148/81
--- NOTE | 2024-08-25 15:58 | W.PN.UPDATE ---
Update Note
Progress Note Update
Seen and evaluated. See full consultation note. Wound evaluated (status post amputation of 2 toes). Discussed with patient based on my prior angiogram (I reviewed the images again), he has distal inframalleolar obliterative disease. Two-vessel
runoff proximal to there. But no really named vessels in the foot. And distally to the toes really no good perfusion. No target for any angioplasty/stenting/bypass. Discussed with him the only option aside from more proximal amputation would be
TADV/LimFlow. I discussed the procedure with him extensively. I discussed that there is absolutely no guarantee that this would be successful. Discussed that it does not guarantee limb salvage. However it is potentially worth an effort. He
understands and is amenable to attempting procedure. Due to scheduling, and need to review imaging with LimFlow rep, would plan procedure mid next week. (Tentatively Friday of next week, 1 week from today). If patient needs to be discharged
home, that is fine and we can plan this as an outpatient procedure.
[2024-08-25] MEDS: DILAUDID 0.5 MG IV ×2 (16:02→22:01)
--- NOTE | 2024-08-25 16:08 | W.PN.SURGUPD ---
Surgical Update
Surgical Update
59 yo M s/p L partial 3rd/4th ray amputations left open
-Patient seen and evaluated at bedside
-Dressings can be changed daily moving forward as followings: Please apply betadine to 3rd/4th toe surgical wound followed by gauze and lightly wrapped mary lou wrap
-Vascular surgery plans for DVA, timing TBD
-Continue IV antibiotics per ID recs
-Definitive foot surgical intervention pending vascular findings
[2024-08-25 16:59] LABS: Glucose - Point of Care 168 mg/dl (70-99)
[2024-08-25 21:27] LABS: Glucose - Point of Care 98 mg/dl (70-99)
[2024-08-25 22:55] LABS: Glucose - Point of Care 102 mg/dl (70-99)
[2024-08-25] MEDS: LANTUS 0.15 UNITS SC (23:04)
[2024-08-25 23:05] VITALS: BP 139/71
[2024-08-26] MEDS: VANCOCIN 275 MG IV ×2 (05:28→17:55)
[2024-08-26] MEDS: MAXIPIME 2000 MG IV ×3 (05:28→21:50)
[2024-08-26] MEDS: STERILE WATER FOR INJECTION 10 ML IV ×3 (05:28→21:50)
[2024-08-26 06:00] VITALS: BMI 34.8
[2024-08-26 07:20] VITALS: BP 177/86
[2024-08-26 07:24] LABS: Glucose - Point of Care 105 mg/dl (70-99)
[2024-08-26] MEDS: DILAUDID 0.5 MG IV ×3 (07:31→21:49)
--- NOTE | 2024-08-26 08:21 | PN.DE.MGMTRT ---
Insulin Management
- -
08/26/2024: Diabetes Management Follow up
59 year old male who was recently hospitalization for gangrene of left 3rd and 4th toes due to PAD complicated by diabetic neuropathy. Patient supposed to follow-up with podiatry or vascular surgery but he dd not followup as instructed. PMH: HTN,
HLD, NIDDM, PAD, Peripheral Neuropathy, and Class II Obesity.
Patient presented to the ED with worsening chronic left foot nonhealing wound due to Diabetic foot infection with possible gangrene. Of note patient is known to our service as we were consulted for his last admission (06/28/24- 07/03/24), for again
uncontrolled diabetes.
Last A1C was 10.4% on 06/28/24. Cr 1.0, eGFR >60, was taking Metformin 750mg daily and Ozempic Q Friday. Was provided with a Contour Next monitor during his last hospital visit.
Pt awake, alert oriented, sitting up in bed, offers no complaints, able to discuss diabetes care plan. Mom at bedside.
POD # 2 s/p left open 3rd/4th partial ray amputations, doing well overall.
08/24 started Lantus 15 units @ HS and Glipizide 5mg daily
Glucose stable, pre-dinner blood sugar was 168, HS 98 and FBG 105 this AM.
Will make no changes to current regimen: Lantus 15 units @ HS and Glipizide 5mg daily, continue moderate corrective insulin AC.
Will STOP MFM given LINDY Cr 1.4-->1.0 today. Discussed with nurse. Will cont to follow.
Pt will be seen by the Diabetes RN Educator for Insulin instructions today.
Had a lengthy and detailed discussion about current A1C, implications of uncontrolled diabetes, short and [facility] complications including poor wound healing. Discussed dietary choices, especially carbohydrates and lean proteins, limiting ordering
out and making all meals at home. Emphasized importance of appropriate follow up with all specialists for ongoing care and encouraged consistent glucose monitoring at home.
Diabetes History
- -
Type of Diabetes: 2 requiring insulin
Pre-Admission Diabetes Regimen
Insulin Pump Settings
IP Diabetes Regimen
08/25/24 08/25/24 08/25/24
12:05 15:03 16:52
POC Glucose 216 H 216 H 168 H
08/25/24 08/25/24 08/26/24
21:26 22:54 07:23
POC Glucose 98 102 H 105 H
Meal type: Breakfast
Amount consumed: 100%
Patient Education
[2024-08-26] MEDS: APRESOLINE 50 MG PO (09:02)
[2024-08-26] MEDS: NORVASC 10 MG PO (09:02)
[2024-08-26] MEDS: NOVOLOG FLEXPEN-MODERATE RESISTANCE SC ×3 (09:02→17:41)
[2024-08-26] MEDS: CRESTOR 20 MG PO (09:02)
[2024-08-26] MEDS: GLUCOTROL 5 MG PO (09:02)
[2024-08-26] MEDS: ZESTRIL 40 MG PO (09:02)
[2024-08-26] MEDS: HEPARIN 5000 UNITS SC ×3 (09:03→23:48)
[2024-08-26] MEDS: TYLENOL 650 MG PO ×2 (09:06→15:35)
--- NOTE | 2024-08-26 09:32 | PHA.VAN.FU ---
Vancomycin Assessment / Plan
- Assessment
Renal Function: No New Labs Today
In the past 24 hrs, patient has been: Afebrile
Concomitant Antimicrobials: cefepime
- Dosing Plan
Continue: Vanc 1250mg Q12H
- Monitoring Plan
Peak Level: 08/26 21:30
Trough Level: 08/27 05:30
Monitoring Comments: levels to be drawn after 6th maintenance dose
- Follow Up
Pharmacy will continue to follow.
Vancomycin Follow UP
- -
Patient Age: 59
Patient Sex: Male
Vancomycin Day #: 4
Indication: Diabetic Foot
Requesting Provider: Marlin Grissom
Pertinent Antimicrobial Allergies:
NKDA
Height / Weight:
Height 5 ft 11 in
Actual Weight 113.086 kg
Pertinent Past Medical History: BMI ~35, DM II
- Vital Signs / Lab Results
Temp Pulse Resp BP Pulse Ox
98.5 F 97 18 177/86 97
08/26/24 07:20 08/26/24 07:20 08/26/24 07:20 08/26/24 07:20 08/26/24 07:20
Lab Results - Hematology
08/23/24 08/24/24
15:29 05:55
WBC 9.2 8.0
Lab Results - Chemistry
08/23/24 08/24/24
15:30 05:55
BUN 29 H 20
Creatinine 1.4 H 1.0
Estimated Creat Clear 104
Albumin 4.0
Microbiology Results
08/24/24 16:00 Wound Culture - Preliminary
Foot - Left Gram negative bacilli
Gram Stain - Preliminary
08/24/24 16:00 Anaerobic Culture - Preliminary
Foot - Left Culture pending. Anaerobic cultures are examined after 3
days incubation. Additional information to follow.
Therapeutic Drug Monitoring
Random Vancomycin 11.5 ug/ml 08/24/24 05:55
--- NOTE | 2024-08-26 09:43 | W.PN.HOSP.TC ---
Today's Communication/Plan
-
see plan
Assessment / Plan
Assessment / Plan
Gen: NAD, AAOx3.
Eyes: EOMI, PERRLA, no scleral icterus.
Neck: supple.
CV: continues to remain RRR, +S1/S2, no m/r/g.
Resp: CTAB anteriorly, no rales, wheezes, or rhonchi.
Abd: remains +BS, soft, NT, ND
Skin: No rashes.
Neuro: CN 2-12 intact, non-focal.
Psych: Normal mood and affect.
08/24/24 16:00 Foot - Left Wound Culture - Preliminary
Gram negative bacilli
08/24/24 16:00 Foot - Left Gram Stain - Preliminary
08/24/24 16:00 Foot - Left Anaerobic Culture - Preliminary
Culture pending. Anaerobic cultures are examined after 3
days incubation. Additional information to follow.
L foot Xray: Soft tissue swelling. Findings suspicious for subcutaneous emphysema involving the third and fourth digits, as described. However, no radiographic evidence to suggest osteomyelitis.
Worsening Gangrene Left Foot:
-s/p L open 3rd/4th partial ray amputations on 08/24/24
-Heel WBAT to LLE for transfers only
-follow Cxs/path (see above)
-cont Vanco/Cefepime
-vascular following, potential Limflow procedure 09/01/24
DM2:
-HgbA1c 10.4 in June 2024
-Patient maintained on Ozempic as outpatient
-Holding metformin during hospitalization
-SSI/accuchecks
-cont Lantus/Glipizide
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
Essential Hypertension
-Continue amlodipine/lisinopril
-Increase hydralazine to 100mg TID
-Holding HCTZ due to mildly elevated Cr on admission
Other problems:
Hyperlipidemia: cont Crestor
Hyponatremia, resolved
Obesity due to excess calories
FULL/Heparin
Anticipated Discharge: 24 - 48 hours
Subjective/Interval History
-
Date of Service: August 26, 2024
Objective Data
-
Vital Signs:
Vital Signs
Temp Pulse Resp BP Pulse Ox
98.5 F 97 18 177/86 97
08/26/24 07:20 08/26/24 07:20 08/26/24 07:20 08/26/24 07:20 08/26/24 07:20
I&O
08/25/24 08/26/24 08/27/24
06:59 06:59 06:59
Intake Total 1760 / 1760 1510 / 1510
Balance 1760 / 1760 1510 / 1510
[2024-08-26 10:17] LABS: Hematocrit 30.3 % (39.0-52.0); Hemoglobin 10.1 g/dL (13.0-18.0); Mean Corp Hgb Conc. 33.3 g/dL (33.0-37.0); Mean Corpuscular Hgb 29.5 pg (27.0-31.0); Mean Corpuscular Volume 88.6 fL (80.0-94.0); Mean Platelet Volume 9.2 fL (7.4-10.4); Platelet Count 330 10^3/uL (130-400); Red Blood Cell Count 3.42 10^6/uL (4.70-6.10); Red Cell Dist. Width 13.4 % (11.5-14.5); White Blood Cell Count 9.3 10^3/uL (4.8-10.8)
[2024-08-26 10:47] LABS: Blood Urea Nitrogen 20 mg/dl (9-20); Calcium 9.2 mg/dl (8.4-10.2); Carbon Dioxide 26 mmol/L (22-30); Chloride 108 mmol/L (98-107); Estimated Creatinine Clearance 94 ml/min; Glucose 113 mg/dl (70-99); Potassium 4.1 mmol/L (3.5-5.1); Sodium 138 mmol/L (135-145); eGFR > 60.00
[2024-08-26] MEDS: ROXICODONE 5 MG PO (10:53)
[2024-08-26 11:15] VITALS: BP 166/89
[2024-08-26 11:59] LABS: Glucose - Point of Care 77 mg/dl (70-99)
--- NOTE | 2024-08-26 13:27 | PTCARENOTE ---
Addendum entered by Bibiana Lynch RN 08/26/24 13:45:
08/26/2024 I contacted member's provider Dr.Nathaniel Dickson. Reported that member is currently inpatient with Left toe amputation. Confirmed member saw provider on 07/21/2024 for to follow up from his 07/02/2024 IP stay. I asked provider to order CGM
Free Style Dawson 3+ per member's request. Rep confirmed and will send message to provider.
Original Note:
08/26/2024 DIABETES CONSULT
I met with Elio to review diabetes management. He recently had toes amputated, was inpatient last month with cellulitis.
I educated on physiology of T2D, organ damage, managing with medications, monitoring BG, nutrition, activity, sleep and managing stress. I reinforced signs of hyperglycemia, hypoglycemia and hypoglycemia protocol; BS parameters and recommended HbA1c
goals, glucometer and CGM instructions, glucose tracker, medic alert bracelet and outpatient DSME program. Written material provided. Member states he is interested in outpatient DSME class, I provided diabetes education office phone # for
registration.
He states that he has a glucose meter at home, understands how to use this and does not have any difficulty. He states he has enough supplies at home, were ordered at last inpatient stay. We verbally reviewed the proper steps for set up and use. He
states he is working with his PCP, Dr. Ramon Dickson on an order for a CGM.
Member states he is also prescribed Glipizide and Ozempic. Provided education on mechanism of action; Glipizide is to be administered 30 minutes before breakfast, if taken at a different time may cause hypoglycemia.
I educated and demonstrated on insulin injection technique, timing, and storage. Discussed long and short acting insulin; onset/peak/duration, and encouraged Kaleb to administer his own injections with RN supervision while admitted. Discussed
normal target glucose ranges and a monitoring schedule 15 minutes before each meal when prescribed Novolog, and preprandial AM and/or bedtime as recommended by MD.
Encouraged patient to follow up with his PCP for post d/c appointment and to monitor medication and blood glucose levels. 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
Provided list of endocrinologists if desired, to contact insurance company to verify in network status. Patient verbalized understanding.
--- NOTE | 2024-08-26 13:50 | CM ---
Patient seen at bedside in [address] [place] [address] with mother present. Patient with no concerns at this time. CM will follow for discharge planning needs.
Plan; home with [facility] to follow
[2024-08-26 15:15] VITALS: BP 177/83
[2024-08-26] MEDS: APRESOLINE 100 MG PO ×2 (15:35→21:49)
[2024-08-26 17:18] LABS: Glucose - Point of Care 83 mg/dl (70-99)
[2024-08-26 17:30] VITALS: BP 170/76
[2024-08-26] MEDS: CITROMA 300 ML PO (18:26)
[2024-08-26 21:28] LABS: Glucose - Point of Care 103 mg/dl (70-99)
[2024-08-26] MEDS: LANTUS 0.15 UNITS SC (21:48)
[2024-08-26 22:35] LABS: Vancomycin Peak 25.9 ug/ml (18-26)
[2024-08-26 23:05] VITALS: BP 163/83
[2024-08-27] MEDS: ROXICODONE 5 MG PO ×3 (00:46→14:57)
[2024-08-27] MEDS: MAXIPIME 2000 MG IV ×3 (05:23→21:16)
[2024-08-27] MEDS: STERILE WATER FOR INJECTION 10 ML IV ×3 (05:23→21:16)
[2024-08-27] MEDS: DILAUDID 0.5 MG IV ×4 (05:34→22:26)
[2024-08-27 05:46] LABS: Hematocrit 29.2 % (39.0-52.0); Hemoglobin 9.8 g/dL (13.0-18.0); Mean Corp Hgb Conc. 33.6 g/dL (33.0-37.0); Mean Corpuscular Hgb 29.6 pg (27.0-31.0); Mean Corpuscular Volume 88.2 fL (80.0-94.0); Mean Platelet Volume 9.3 fL (7.4-10.4); Platelet Count 357 10^3/uL (130-400); Red Blood Cell Count 3.31 10^6/uL (4.70-6.10); Red Cell Dist. Width 13.2 % (11.5-14.5); White Blood Cell Count 9.8 10^3/uL (4.8-10.8)
[2024-08-27 06:00] VITALS: BMI 33.5
[2024-08-27 06:02] LABS: Vancomycin Trough 18.6 ug/ml (5-20)
[2024-08-27] MEDS: VANCOCIN 275 MG IV (06:06)
[2024-08-27 06:13] LABS: Blood Urea Nitrogen 17 mg/dl (9-20); Calcium 9.4 mg/dl (8.4-10.2); Carbon Dioxide 24 mmol/L (22-30); Chloride 108 mmol/L (98-107); Estimated Creatinine Clearance 92 ml/min; Glucose 89 mg/dl (70-99); Potassium 4.1 mmol/L (3.5-5.1); Sodium 139 mmol/L (135-145); eGFR > 60.00
[2024-08-27 07:10] VITALS: BP 170/84
[2024-08-27 07:15] LABS: Glucose - Point of Care 89 mg/dl (70-99)
--- NOTE | 2024-08-27 07:58 | PN.DE.MGMTRT ---
Insulin Management
- -
08/27/2024: Diabetes Management Follow up
59 year old male with PMH: HTN, HLD, NIDDM, PAD, Peripheral Neuropathy, and Class II Obesity. Pt was recently hospitalization for gangrene of left 3rd and 4th toes due to PAD complicated by diabetic neuropathy. He was supposed to follow-up with
podiatry or vascular surgery but he never did as instructed.
Patient presented to the ED with worsening chronic left foot nonhealing wound due to Diabetic foot infection with possible gangrene. Of note patient is known to our service as we were consulted for his last admission (06/28/24- 07/03/24), for again
uncontrolled diabetes.
Last A1C was 10.4% on 06/28/24. Cr 1.0, eGFR >60, was taking Metformin 750mg daily and Ozempic Q Friday. Was provided with a Contour Next monitor during his last hospital visit.
Pt awake, alert oriented, sitting up in bed, offers no complaints, able to discuss diabetes care plan.
POD # 3 s/p left open 3rd/4th partial ray amputations, doing well overall.
08/24 started Lantus 15 units @ HS and Glipizide 5mg daily
Glucose stable and in range, 08/26 premeal 77 to 105, HS 103 and FBG 89 this AM.
Will make no changes to current regimen: Lantus 15 units @ HS and Glipizide 5mg daily, continue moderate corrective insulin AC.
Will STOP MFM given LNIDY Cr 1.4-->1.0 today. Discussed with nurse. Will cont to follow.
Pt was seen by the Diabetes RN Educator for Insulin instructions.
Had a lengthy and detailed discussion about current A1C, implications of uncontrolled diabetes, short and halfway complications including poor wound healing. Discussed dietary choices, especially carbohydrates and lean proteins, limiting ordering
out and making all meals at home. Emphasized importance of appropriate follow up with all specialists for ongoing care and encouraged consistent glucose monitoring at home.
Diabetes History
- -
Type of Diabetes: 2 requiring insulin
Pre-Admission Diabetes Regimen
08/26/24 08/27/24
10:06 05:30
Creatinine 1.1 1.1
Insulin Pump Settings
IP Diabetes Regimen
08/26/24 08/26/24 08/26/24
10:06 11:56 17:17
Glucose 113 H
POC Glucose 77 83
08/26/24 08/27/24 08/27/24
21:26 05:30 07:14
Glucose 89
POC Glucose 103 H 89
Meal type: Lunch
Meal type: Breakfast
Amount consumed: 100%
Amount consumed: 85%
Patient Education
--- NOTE | 2024-08-27 08:12 | PHA.VAN.FU ---
Vancomycin Assessment / Plan
- Assessment
Renal Function: Stable
WBC's are: WNL
In the past 24 hrs, patient has been: Afebrile
Concomitant Antimicrobials: cefepime
- Assessment - Therapeutic Drug Monitoring
Extrapolated Cmax (mcg/mL): 29.2
Peak level was drawn: Appropriately (drawn ~2.7H after end of previous infusion)
Extrapolated Cmin (mcg/mL): 18.3
Trough Drawn: Appropriately
Levels were drawn: At steady state (levels drawn after 6th maintenance dose)
Calculated AUC (mcg*h/mL): 561
Calculated ke: 0.0447
Calculated half life (H): 15.5
Calculated Vd (L): 99.5 (~1.1 L/kg)
Calculated Vanc CL (ml/min): 74
- Dosing Plan
Adjust Regimen to: dosing by level - received 1250mg 08/27 06:06
Half-life > current dosing interval
SCR remains slightly above prior baseline in June (0.7-0.9)
Trial Q24H dosing by following level tomorrow after today's dose
- Monitoring Plan
Random Level: 08/28 0600
- Follow Up
Pharmacy will continue to follow.
Vancomycin Follow UP
- -
Patient Age: 59
Patient Sex: Male
Vancomycin Day #: 5
Indication: Diabetic Foot
Requesting Provider: Marlin Grissom
Pertinent Antimicrobial Allergies:
NKDA
Height / Weight:
Height 5 ft 11 in
Actual Weight 109.004 kg
Pertinent Past Medical History: BMI ~35, DM II
- Vital Signs / Lab Results
Temp Pulse Resp BP Pulse Ox
99.0 F 83 18 163/83 98
08/26/24 23:05 08/26/24 23:05 08/26/24 23:05 08/26/24 23:05 08/27/24 00:59
Lab Results - Hematology
08/26/24 08/27/24
10:06 05:30
WBC 9.3 9.8
Lab Results - Chemistry
08/26/24 08/27/24
10:06 05:30
BUN 20 17
Creatinine 1.1 1.1
Estimated Creat Clear 94 92
Microbiology Results
08/24/24 16:00 Wound Culture - Preliminary
Foot - Left Gram negative bacilli
Gram Stain - Preliminary
08/24/24 16:00 Anaerobic Culture - Preliminary
Foot - Left Culture pending. Anaerobic cultures are examined after 3
days incubation. Additional information to follow.
Therapeutic Drug Monitoring
Vancomycin Peak 25.9 ug/ml (18-26) 08/26/24 22:06
Vancomycin Trough 18.6 ug/ml (5-20) 08/27/24 05:30
Random Vancomycin 11.5 ug/ml 08/24/24 05:55
[2024-08-27] MEDS: ZESTRIL 40 MG PO (08:31)
[2024-08-27] MEDS: APRESOLINE 100 MG PO ×3 (08:31→21:16)
[2024-08-27] MEDS: NOVOLOG FLEXPEN-MODERATE RESISTANCE SC ×3 (08:31→17:57)
[2024-08-27] MEDS: HEPARIN 5000 UNITS SC ×3 (08:32→23:33)
[2024-08-27] MEDS: NORVASC 10 MG PO (08:32)
[2024-08-27] MEDS: CRESTOR 20 MG PO (08:32)
[2024-08-27] MEDS: GLUCOTROL 5 MG PO (08:32)
--- NOTE | 2024-08-27 09:14 | W.PN.HOSP.TC ---
Today's Communication/Plan
-
see plan
Assessment / Plan
Assessment / Plan
Gen: remains NAD, AAOx3.
Eyes: EOMI, PERRLA, no scleral icterus.
Neck: supple.
CV: RRR, +S1/S2, no m/r/g.
Resp: CTAB, no rales, wheezes, or rhonchi.
Abd: continues to remain +BS, soft, NT, ND
Skin: No rashes.
Neuro: CN 2-12 intact, non-focal.
Psych: Normal mood and affect.
08/24/24 16:00 Foot - Left Wound Culture - Preliminary
Proteus mirabilis
08/24/24 16:00 Foot - Left Gram Stain - Preliminary
08/24/24 16:00 Foot - Left Anaerobic Culture - Preliminary
Culture pending. Anaerobic cultures are examined after 3
days incubation. Additional information to follow.
L foot Xray: Soft tissue swelling. Findings suspicious for subcutaneous emphysema involving the third and fourth digits, as described. However, no radiographic evidence to suggest osteomyelitis.
Worsening Gangrene Left Foot:
-s/p L open 3rd/4th partial ray amputations on 08/24/24
-Heel WBAT to LLE for transfers only
-follow Cxs/path (see above)
-cont Vanco/Cefepime
-vascular following, potential Limflow procedure 09/01/24
DM2:
-HgbA1c 10.4 in June 2024
-Patient maintained on Ozempic as outpatient
-Holding metformin during hospitalization
-SSI/accuchecks
-cont Lantus/Glipizide
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
Essential Hypertension
-Continue amlodipine/lisinopril/Hydralazine
-restart HCTZ
Other problems:
Hyperlipidemia: cont Crestor
Hyponatremia, resolved
Obesity due to excess calories
FULL/Heparin
Anticipated Discharge: 24 - 48 hours
Subjective/Interval History
-
Date of Service: August 27, 2024
No new complaints.
Objective Data
-
Labs:
Laboratory Results
08/27/24
05:30
WBC 9.8
Hgb 9.8 L
Hct 29.2 L
Plt Count 357
Sodium 139
Potassium 4.1
Chloride 108 H
Carbon Dioxide 24
BUN 17
Creatinine 1.1
Glucose 89
Calcium 9.4
Vital Signs:
Vital Signs
Temp Pulse Resp BP Pulse Ox
99.2 F 95 16 170/84 96
08/27/24 07:10 08/27/24 07:10 08/27/24 07:10 08/27/24 07:10 08/27/24 07:10
I&O
08/26/24 08/27/24 08/28/24
06:59 06:59 06:59
Intake Total 1510 / 1510 1834
Balance 1510 / 1510 1834
[2024-08-27] MEDS: ORETIC 25 MG PO (10:42)
[2024-08-27 11:54] LABS: Glucose - Point of Care 65 mg/dl (70-99)
[2024-08-27 12:15] LABS: Glucose - Point of Care 85 mg/dl (70-99)
--- NOTE | 2024-08-27 14:23 | CM ---
CM following re: discharge planning.
Reviewed pt's chart, met with pt.
[facility] liaison following. PT to issue a walker.
Pt stated his mother will transport home at discharge.
Please fax discharge instructions to [facility] at [phone].
D/c plan: home with [facility], a walker and a family support. Mother to transport at discharge.
CM will follow with discharge plan updates as needed.
[2024-08-27 15:11] VITALS: BP 161/79
[2024-08-27 17:25] LABS: Glucose - Point of Care 100 mg/dl (70-99)
[2024-08-27] MEDS: LANTUS 0.15 UNITS SC (21:20)
[2024-08-27 21:21] LABS: Glucose - Point of Care 129 mg/dl (70-99)
[2024-08-27 23:03] VITALS: BP 154/72
[2024-08-28] MEDS: ROXICODONE 5 MG PO ×2 (01:40→08:27)
[2024-08-28 06:00] VITALS: BMI 34.7
[2024-08-28] MEDS: MAXIPIME 2000 MG IV (06:02)
[2024-08-28] MEDS: STERILE WATER FOR INJECTION 10 ML IV (06:02)
[2024-08-28] MEDS: DILAUDID 0.5 MG IV ×4 (06:08→21:57)
[2024-08-28 07:04] LABS: Glucose - Point of Care 86 mg/dl (70-99)
[2024-08-28 07:08] LABS: Hematocrit 28.8 % (39.0-52.0); Hemoglobin 9.5 g/dL (13.0-18.0); Mean Corpuscular Volume 87.8 fL (80.0-94.0); Mean Platelet Volume 9.7 fL (7.4-10.4); Platelet Count 358 10^3/uL (130-400); Red Blood Cell Count 3.28 10^6/uL (4.70-6.10); Red Cell Dist. Width 13.3 % (11.5-14.5); White Blood Cell Count 10.9 10^3/uL (4.8-10.8)
[2024-08-28 07:20] VITALS: BP 170/78
[2024-08-28 07:22] LABS: Vancomycin Random 13.4 ug/ml
[2024-08-28 07:36] LABS: Blood Urea Nitrogen 17 mg/dl (9-20); Calcium 9.2 mg/dl (8.4-10.2); Carbon Dioxide 23 mmol/L (22-30); Chloride 106 mmol/L (98-107); Estimated Creatinine Clearance 94 ml/min; Glucose 62 mg/dl (70-99); Potassium 4.3 mmol/L (3.5-5.1); Sodium 137 mmol/L (135-145); eGFR > 60.00
[2024-08-28] MEDS: NOVOLOG FLEXPEN-MODERATE RESISTANCE SC ×3 (08:01→16:42)
[2024-08-28] MEDS: APRESOLINE 100 MG PO ×3 (08:01→22:01)
[2024-08-28] MEDS: GLUCOTROL 5 MG PO (08:02)
[2024-08-28] MEDS: CRESTOR 20 MG PO (08:02)
[2024-08-28] MEDS: NORVASC 10 MG PO (08:02)
[2024-08-28] MEDS: ZESTRIL 40 MG PO (08:02)
[2024-08-28] MEDS: ORETIC 25 MG PO (08:03)
[2024-08-28] MEDS: HEPARIN 5000 UNITS SC ×3 (08:03→23:32)
[2024-08-28] MEDS: VANCOCIN 275 MG IV (09:43)
[2024-08-28 11:05] VITALS: BP 141/67
[2024-08-28 11:21] LABS: Glucose - Point of Care 92 mg/dl (70-99)
--- NOTE | 2024-08-28 11:55 | W.PN.HOSP.TC ---
Today's Communication/Plan
-
see plan
Assessment / Plan
Assessment / Plan
Gen: continues to remain NAD, AAOx3.
Eyes: EOMI, PERRLA, no scleral icterus.
Neck: supple.
CV: continues to remain RRR, +S1/S2, no m/r/g.
Resp: CTAB, no rales, wheezes, or rhonchi.
Abd:+BS, soft, NT, ND
Skin: No rashes.
Neuro: CN 2-12 intact, non-focal.
Psych: Normal mood and affect.
08/24/24 16:00 Foot - Left Anaerobic Culture - Preliminary
Culture pending. Anaerobic cultures are examined after 3
days incubation. Additional information to follow.
08/24/24 16:00 Foot - Left Wound Culture - Preliminary
Proteus mirabilis
08/24/24 16:00 Foot - Left Gram Stain - Preliminary
L foot Xray: Soft tissue swelling. Findings suspicious for subcutaneous emphysema involving the third and fourth digits, as described. However, no radiographic evidence to suggest osteomyelitis.
Worsening Gangrene Left Foot:
-s/p L open 3rd/4th partial ray amputations on 08/24/24
-Heel WBAT to LLE for transfers only
-follow Cxs/path (see above)
-cont Vanco/Cefepime
-c/s ID
-vascular following, potential Limflow procedure 09/01/24
DM2:
-HgbA1c 10.4 in June 2024
-Patient maintained on Ozempic as outpatient
-Holding metformin during hospitalization
-SSI/accuchecks
-cont Lantus/Glipizide
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
Other problems:
Essential Hypertension: Continue amlodipine/lisinopril/Hydralazine/HCTZ
Hyperlipidemia: cont Crestor
Hyponatremia, resolved
Obesity due to excess calories
FULL/Heparin
Anticipated Discharge: 24 - 48 hours
Subjective/Interval History
-
Date of Service: August 28, 2024
No new complaints.
Objective Data
-
Labs:
Laboratory Results
08/28/24
05:40
WBC 10.9 H
Hgb 9.5 L
Hct 28.8 L
Plt Count 358
Sodium 137
Potassium 4.3
Chloride 106
Carbon Dioxide 23
BUN 17
Creatinine 1.1
Glucose 62 L
Calcium 9.2
Vital Signs:
Vital Signs
Temp Pulse Resp BP Pulse Ox
98.6 F 88 16 141/67 96
08/28/24 11:05 08/28/24 11:05 08/28/24 11:05 08/28/24 11:05 08/28/24 11:05
I&O
08/27/24 08/28/24 08/29/24
06:59 06:59 06:59
Intake Total 1834 840 / 840 275 / 275
Balance 1834 840 / 840 275 / 275
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
[2024-08-28] MEDS: ROCEPHIN 2000 MG IV (14:30)
[2024-08-28] MEDS: STERILE WATER FOR INJECTION 20 ML IV (14:30)
[2024-08-28 15:05] VITALS: BP 138/72
[2024-08-28 16:31] LABS: Glucose - Point of Care 76 mg/dl (70-99)
[2024-08-28 19:47] VITALS: BP 163/75
[2024-08-28] MEDS: LANTUS 0.15 UNITS SC (21:59)
[2024-08-28 23:45] VITALS: BP 168/75
[2024-08-29] MEDS: DILAUDID 0.5 MG IV ×3 (05:46→17:32)
[2024-08-29 06:00] VITALS: BMI 34.6
[2024-08-29 07:30] VITALS: BP 148/76
[2024-08-29 07:41] LABS: Glucose - Point of Care 93 mg/dl (70-99)
[2024-08-29] MEDS: NOVOLOG FLEXPEN-MODERATE RESISTANCE SC ×3 (07:45→16:10)
[2024-08-29 08:08] LABS: Hematocrit 27.8 % (39.0-52.0); Hemoglobin 9.5 g/dL (13.0-18.0); Mean Corp Hgb Conc. 34.2 g/dL (33.0-37.0); Mean Corpuscular Volume 87.7 fL (80.0-94.0); Mean Platelet Volume 9.5 fL (7.4-10.4); Platelet Count 347 10^3/uL (130-400); Red Blood Cell Count 3.17 10^6/uL (4.70-6.10); Red Cell Dist. Width 13.3 % (11.5-14.5); White Blood Cell Count 12.2 10^3/uL (4.8-10.8)
[2024-08-29 08:12] LABS: Blood Urea Nitrogen 17 mg/dl (9-20); Calcium 9.3 mg/dl (8.4-10.2); Carbon Dioxide 26 mmol/L (22-30); Chloride 107 mmol/L (98-107); Estimated Creatinine Clearance 86 ml/min; Glucose 89 mg/dl (70-99); Potassium 4.4 mmol/L (3.5-5.1); Sodium 138 mmol/L (135-145); eGFR > 60.00
[2024-08-29] MEDS: APRESOLINE 100 MG PO ×3 (08:20→21:33)
[2024-08-29] MEDS: GLUCOTROL 5 MG PO (08:20)
[2024-08-29] MEDS: NORVASC 10 MG PO (08:21)
[2024-08-29] MEDS: HEPARIN 5000 UNITS SC ×3 (08:21→23:40)
[2024-08-29] MEDS: CRESTOR 20 MG PO (08:21)
[2024-08-29] MEDS: ZESTRIL 40 MG PO (08:21)
[2024-08-29] MEDS: ORETIC 25 MG PO (08:21)
[2024-08-29] MEDS: ROXICODONE 5 MG PO ×2 (08:31→21:34)
--- NOTE | 2024-08-29 09:57 | W.PN.HOSP.TC ---
Today's Communication/Plan
-
continue Abx pending path
Assessment / Plan
Assessment / Plan
Gen: continues to remain NAD, AAOx3.
Eyes: EOMI, PERRLA, no scleral icterus.
Neck: supple.
CV: continues to remain RRR, +S1/S2, no m/r/g.
Resp: CTAB, no rales, wheezes, or rhonchi.
Abd:+BS, soft, NT, ND
Skin: No rashes.
Neuro: CN 2-12 intact, non-focal.
Psych: Normal mood and affect.
Assessment:
Worsening Gangrene Left Foot:
- s/p L open 3rd/4th partial ray amputations on 08/24/24
- Heel WBAT to LLE for transfers only
- follow Cxs/path (see above)
- cont Rocephin per ID
- vascular following, potential Limflow procedure 09/01/24
DM2:
- HgbA1c 10.4 in June 2024
- Patient maintained on Ozempic as outpatient
- Holding metformin during hospitalization
- SSI/accu-checks
- cont Lantus/Glipizide
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
Essential Hypertension: Continue amlodipine/lisinopril/Hydralazine/HCTZ
Hyperlipidemia: cont Crestor
Hyponatremia, resolved
Obesity due to excess calories
DVT ppx: SC Heparin
Code: Full
Anticipated Discharge: > 48 hours
Subjective/Interval History
-
Date of Service: August 29, 2024
resting comfortably, no complaints
Objective Data
-
Labs:
Laboratory Results
08/29/24
07:03
WBC 12.2 H
Hgb 9.5 L
Hct 27.8 L
Plt Count 347
Sodium 138
Potassium 4.4
Chloride 107
Carbon Dioxide 26
BUN 17
Creatinine 1.2
Glucose 89
Calcium 9.3
Vital Signs:
Vital Signs
Temp Pulse Resp BP Pulse Ox
98.9 F 90 18 148/76 99
08/29/24 07:30 08/29/24 07:30 08/29/24 07:30 08/29/24 07:30 08/29/24 07:30
I&O
08/28/24 08/29/24 08/30/24
06:59 06:59 06:59
Intake Total 840 / 840 2130
Balance 840 / 840 2130
Data Reviewed
-
Total Time Spent with Patient (in minutes): 41
Labs: Labs Reviewed by me
[2024-08-29 12:24] LABS: Glucose - Point of Care 148 mg/dl (70-99)
[2024-08-29 13:31] LABS: Glucose - Point of Care 60 mg/dl (70-99)
[2024-08-29 13:56] LABS: Glucose - Point of Care 82 mg/dl (70-99)
[2024-08-29] MEDS: STERILE WATER FOR INJECTION 20 ML IV (14:24)
[2024-08-29] MEDS: ROCEPHIN 2000 MG IV (14:24)
[2024-08-29 15:32] VITALS: BP 138/70
[2024-08-29 16:09] LABS: Glucose - Point of Care 132 mg/dl (70-99)
[2024-08-29 18:03] LABS: Glucose - Point of Care 108 mg/dl (70-99)
[2024-08-29 21:13] LABS: Glucose - Point of Care 195 mg/dl (70-99)
[2024-08-29] MEDS: LANTUS 0.15 UNITS SC (21:34)
[2024-08-29 23:00] VITALS: BP 159/74
[2024-08-30] MEDS: ROXICODONE 5 MG PO ×4 (02:35→17:05)
[2024-08-30 03:16] LABS: Glucose - Point of Care 112 mg/dl (70-99)
[2024-08-30 06:00] VITALS: BMI 34.4
[2024-08-30 07:10] VITALS: BP 172/80
[2024-08-30 08:09] LABS: Hematocrit 27.8 % (39.0-52.0); Hemoglobin 9.2 g/dL (13.0-18.0); Mean Corp Hgb Conc. 33.1 g/dL (33.0-37.0); Mean Corpuscular Hgb 29.1 pg (27.0-31.0); Mean Platelet Volume 9.5 fL (7.4-10.4); Platelet Count 348 10^3/uL (130-400); Red Blood Cell Count 3.16 10^6/uL (4.70-6.10); Red Cell Dist. Width 13.2 % (11.5-14.5); White Blood Cell Count 12.3 10^3/uL (4.8-10.8)
[2024-08-30 08:13] LABS: Glucose - Point of Care 140 mg/dl (70-99)
[2024-08-30] MEDS: NOVOLOG FLEXPEN-MODERATE RESISTANCE SC ×3 (08:13→17:48)
[2024-08-30] MEDS: CRESTOR 20 MG PO (08:14)
[2024-08-30] MEDS: NORVASC 10 MG PO (08:14)
[2024-08-30] MEDS: ZESTRIL 40 MG PO (08:14)
[2024-08-30] MEDS: ORETIC 25 MG PO (08:14)
[2024-08-30] MEDS: GLUCOTROL 5 MG PO (08:14)
[2024-08-30] MEDS: HEPARIN 5000 UNITS SC ×2 (08:15→16:06)
[2024-08-30] MEDS: APRESOLINE 100 MG PO ×3 (08:15→22:14)
--- NOTE | 2024-08-30 08:21 | PN.DE.MGMTRT ---
Insulin Management
- -
08/30/2024: Diabetes Management Follow up
59 year old male with PMH: HTN, HLD, NIDDM, PAD, Peripheral Neuropathy, and Class II Obesity. Pt was recently hospitalization for gangrene of left 3rd and 4th toes due to PAD complicated by diabetic neuropathy. He was supposed to follow-up with
podiatry or vascular surgery but he never did as instructed.
Patient presented to the ED with worsening chronic left foot nonhealing wound due to Diabetic foot infection with possible gangrene. Of note patient is known to our service as we were consulted for his last admission (06/28/24- 07/03/24), for again
uncontrolled diabetes.
Last A1C was 10.4% on 06/28/24. Cr 1.0, eGFR >60, was taking Metformin 750mg daily and Ozempic Q Friday. Was provided with a Contour Next monitor during his last hospital visit.
Pt awake, alert oriented, sitting up in bed, offers no complaints, able to discuss diabetes care plan. Friend at bedside, very supportive
POD # 6 s/p left open 3rd/4th partial ray amputations, doing well overall. NPO for inflow procedure with Vascular today
08/24 started Lantus 15 units @ HS and Glipizide 5mg daily. Noted for episodes of hypoglycemia mid-day to afternoon.
Will reduce Glipizide to 2.5 mg daily. FBG 82 V, 140 POC, will cont same dose of Lantus 15 units @ HS, continue moderate corrective insulin AC.
Metformin was STOPPED due to recurrent LINDY while on Metformin. Cr 1.4-->1.2 today.
Discussed with nurse. Will cont to follow.
Pt was seen by the Diabetes RN Educator for Insulin instructions.
Had a lengthy and detailed discussion about current A1C, implications of uncontrolled diabetes, short and biologist complications including poor wound healing. Discussed dietary choices, especially carbohydrates and lean proteins, limiting ordering
out and making all meals at home. Emphasized importance of appropriate follow up with all specialists for ongoing care and encouraged consistent glucose monitoring at home.
Diabetes History
- -
Type of Diabetes: 2 requiring insulin
Pre-Admission Diabetes Regimen
Insulin Pump Settings
IP Diabetes Regimen
08/28/24 08/29/24 08/29/24
21:51 13:30 13:55
POC Glucose 148 H 60 L 82
08/29/24 08/29/24 08/29/24
16:08 18:02 21:11
POC Glucose 132 H 108 H 195 H
08/30/24 08/30/24
03:14 08:12
POC Glucose 112 H 140 H
Meal type: Dinner
Meal type: Lunch
Meal type: Breakfast
Amount consumed: 100%
Amount consumed: 100%
Amount consumed: 100%
Patient Education
[2024-08-30 08:31] LABS: Blood Urea Nitrogen 19 mg/dl (9-20); Calcium 9.5 mg/dl (8.4-10.2); Carbon Dioxide 26 mmol/L (22-30); Chloride 104 mmol/L (98-107); Estimated Creatinine Clearance 85 ml/min; Glucose 82 mg/dl (70-99); Potassium 4.3 mmol/L (3.5-5.1); Sodium 138 mmol/L (135-145); eGFR > 60.00
--- NOTE | 2024-08-30 10:07 | CM ---
CM reviewed medical records. Patient remains acutely ill. CM will remain available as needed.
PLAN: home, pending procedure.
--- NOTE | 2024-08-30 12:13 | W.PN.HOSP.TC ---
Today's Communication/Plan
-
continue IV abx
follow path
LimFlow Friday
Assessment / Plan
Assessment / Plan
Gen: continues to remain NAD, AAOx3.
Eyes: EOMI, PERRLA, no scleral icterus.
Neck: supple.
CV: continues to remain RRR, +S1/S2, no m/r/g.
Resp: CTAB, no rales, wheezes, or rhonchi.
Abd:+BS, soft, NT, ND
Skin: No rashes.
Neuro: CN 2-12 intact, non-focal.
Psych: Normal mood and affect.
Assessment:
Worsening Gangrene Left Foot:
- s/p L open 3rd/4th partial ray amputations on 08/24/24
- Heel WBAT to LLE for transfers only
- follow Cxs/path (see above)
- cont Rocephin per ID
- vascular following, potential Limflow procedure 09/01/24
DM2:
- HgbA1c 10.4 in June 2024
- Patient maintained on Ozempic as outpatient
- Holding metformin during hospitalization
- SSI/accu-checks
- cont Lantus/Glipizide
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
Essential Hypertension: Continue amlodipine/lisinopril/Hydralazine/HCTZ
Hyperlipidemia: cont Crestor
Hyponatremia, resolved
Obesity due to excess calories
DVT ppx: SC Heparin
Code: Full
Anticipated Discharge: > 48 hours
Subjective/Interval History
-
Date of Service: August 30, 2024
resting comfortably
Objective Data
-
Labs:
Laboratory Results
08/30/24
07:20
WBC 12.3 H
Hgb 9.2 L
Hct 27.8 L
Plt Count 348
Sodium 138
Potassium 4.3
Chloride 104
Carbon Dioxide 26
BUN 19
Creatinine 1.2
Glucose 82
Calcium 9.5
Vital Signs:
Vital Signs
Temp Pulse Resp BP Pulse Ox
98.5 F 90 18 172/80 99
08/30/24 07:10 08/30/24 08:14 08/30/24 07:10 08/30/24 08:14 08/30/24 07:10
I&O
08/29/24 08/30/24 08/31/24
06:59 06:59 06:59
Intake Total 2130
Balance 2130
Data Reviewed
-
Total Time Spent with Patient (in minutes): 42
Labs: Labs Reviewed by me
[2024-08-30 12:29] VITALS: BP 146/69
[2024-08-30 12:32] LABS: Glucose - Point of Care 75 mg/dl (70-99)
--- NOTE | 2024-08-30 12:55 | W.PN.ID1 ---
Date of Service
Date of Service: August 30, 2024
Today's Communication
Continue ceftriaxone.
Assessment / Plan
# Limb threathening schemic dry gangrene of the left 3rd and 4th toes
# Recent history of left third toe osteomyelitis with dry gangrene of left 3rd and 4th toes status post 6 weeks of IV ceftriaxone and oral metronidazole completed late July 2024
# Severe PAD not amenable to angioplasty
# Diabetes mellitus with neuropathy
- August 24 status post open ray amputation of left 3rd and 4th toes, + myonecrosis
- OR cx Proteus. Bone path pending.
- Vascular planning on LimFlow procedure this week in attempt to salvage the limb.
- Continue ceftriaxone.
Of note, highly doubt antibiotic reaches site of necrosis due to severe PAD.
Chief Complaint
-: Other (foot gangrene)
Subjective / Review of Systems
Tolerating abx.
Vital Signs / Physical Exam
Vital Signs
Vital Signs
Temp Pulse Resp BP Pulse Ox
98.5 F 90 18 172/80 99
08/30/24 07:10 08/30/24 08:14 08/30/24 07:10 08/30/24 08:14 08/30/24 07:10
Physical Exam
Constitutional: No Acute Distress and Comfortable
Eyes: Sclera Anicteric
Cardiovascular: Regular Rate and S1/S2
Pulmonary: Clear
Gastrointestinal: Soft, Non Tender and Non Distended
Wound: Other (left foot dressing dry)
Neurological: AO x 3
Objective Data
Lab Data
Lab Results
08/30/24 07:20
08/30/24 07:20
Estimated Creat Clear 85 ml/min 08/30/24 07:20
Total Bilirubin 0.5 mg/dl (0.2-1.3) 08/23/24 15:30
AST 19 U/L (17-59) 08/23/24 15:30
ALT 24 U/L (0-50) 08/23/24 15:30
Alkaline Phosphatase 155 U/L (38-126) H 08/23/24 15:30
Most recent labs reviewed.
Micro Results:
08/24/24 16:00 Wound Culture - Final
Foot - Left Proteus mirabilis
Gram Stain - Final
08/24/24 16:00 Anaerobic Culture - Final
Foot - Left
08/23/24 Foot XRAY: Soft tissue swelling. Findings suspicious for subcutaneous emphysema involving the third and fourth digits, as described. However, no radiographic evidence to suggest osteomyelitis.
[2024-08-30] MEDS: STERILE WATER FOR INJECTION 20 ML IV (14:33)
[2024-08-30] MEDS: ROCEPHIN 2000 MG IV (14:33)
[2024-08-30 15:05] VITALS: BP 152/79
--- NOTE | 2024-08-30 15:06 | PTCARENOTE ---
Pt and family inquiring about snacks from home. Current diet reviewed with pt and family multiple times. Education ongoing.
[2024-08-30 17:44] LABS: Glucose - Point of Care 115 mg/dl (70-99)
[2024-08-30] MEDS: DILAUDID 0.5 MG IV (20:58)
[2024-08-30 21:18] LABS: Glucose - Point of Care 125 mg/dl (70-99)
[2024-08-30] MEDS: LANTUS 0.15 UNITS SC (22:11)
[2024-08-31] MEDS: HEPARIN 5000 UNITS SC ×3 (00:06→15:28)
[2024-08-31] MEDS: DILAUDID 0.5 MG IV ×6 (01:30→22:30)
[2024-08-31 06:00] VITALS: BMI 34.7
[2024-08-31 06:12] LABS: Glucose - Point of Care 120 mg/dl (70-99)
[2024-08-31 06:52] LABS: Hematocrit 28.2 % (39.0-52.0); Hemoglobin 9.3 g/dL (13.0-18.0); Mean Corpuscular Volume 87.9 fL (80.0-94.0); Mean Platelet Volume 9.4 fL (7.4-10.4); Platelet Count 368 10^3/uL (130-400); Red Blood Cell Count 3.21 10^6/uL (4.70-6.10); Red Cell Dist. Width 13.2 % (11.5-14.5); White Blood Cell Count 14.3 10^3/uL (4.8-10.8)
[2024-08-31 07:18] LABS: Blood Urea Nitrogen 22 mg/dl (9-20); Calcium 9.5 mg/dl (8.4-10.2); Carbon Dioxide 25 mmol/L (22-30); Chloride 103 mmol/L (98-107); Estimated Creatinine Clearance 86 ml/min; Glucose 113 mg/dl (70-99); Potassium 4.5 mmol/L (3.5-5.1); Sodium 137 mmol/L (135-145); eGFR > 60.00
[2024-08-31 07:22] VITALS: BP 151/73
--- NOTE | 2024-08-31 07:24 | PN.DE.MGMTRT ---
Insulin Management
- -
08/31/2024: Diabetes Management Follow up
Patient presented to the ED with worsening chronic left foot nonhealing wound due to Diabetic foot infection with possible gangrene. PMH: HTN, HLD, NIDDM, PAD, Peripheral Neuropathy, and Class II Obesity. Pt was recently hospitalization for
gangrene of left 3rd and 4th toes due to PAD complicated by diabetic neuropathy. He was supposed to follow-up with podiatry or vascular surgery but he never did as instructed.
Of note patient is known to our service as we were consulted for his last admission (06/28/24- 07/03/24), for again uncontrolled diabetes.
Last A1C was 10.4% on 06/28/24. Cr 1.0, eGFR >60, was taking Metformin 750mg daily and Ozempic Q Friday. Was provided with a Contour Next monitor during his last hospital visit.
Pt awake, alert oriented, sitting up in bed, offers no complaints, able to discuss diabetes care plan.
POD # 7 s/p left open 3rd/4th partial ray amputations, doing well overall.
Cr 1.2, eGFR > 60. Current regimen glipizide 2.5 mg daily with hs lantus 15 units. Fasting glucose 120, will cont Lantus 15 units @ HS, continue moderate corrective insulin AC. Patient states he is comfortable self injecting insulin; provided
printed instructions on step by step prep and injection technique. Patient states he is going to take this more seriously; he has reached out to his primary doctor to obtain a CGM.
Discussed with nurse. Will cont to follow.
Pt was seen by the Diabetes RN Educator for Insulin instructions.
08/25 Had a lengthy and detailed discussion about current A1C, implications of uncontrolled diabetes, short and termite control servicer complications including poor wound healing. Discussed dietary choices, especially carbohydrates and lean proteins, limiting
ordering out and making all meals at home. Emphasized importance of appropriate follow up with all specialists for ongoing care and encouraged consistent glucose monitoring at home.
Diabetes History
- -
Type of Diabetes: 2
Pre-Admission Diabetes Regimen
08/30/24 08/31/24
07:20 06:16
Creatinine 1.2 1.2
Insulin Pump Settings
IP Diabetes Regimen
08/30/24 08/30/24 08/30/24
07:20 08:12 12:27
Glucose 82
POC Glucose 140 H 75
08/30/24 08/30/24 08/31/24
17:42 21:16 06:10
Glucose
POC Glucose 115 H 125 H 120 H
08/31/24
06:16
Glucose 113 H
POC Glucose
Meal type: Lunch
Meal type: Breakfast
Amount consumed: 100%
Amount consumed: 100%
Patient Education
[2024-08-31 07:28] LABS: Glucose - Point of Care 117 mg/dl (70-99)
[2024-08-31] MEDS: NOVOLOG FLEXPEN-MODERATE RESISTANCE SC ×3 (08:30→16:57)
[2024-08-31] MEDS: GLUCOTROL 2.5 MG PO (08:31)
[2024-08-31] MEDS: ORETIC 25 MG PO (08:32)
[2024-08-31] MEDS: ZESTRIL 40 MG PO (08:33)
[2024-08-31] MEDS: CRESTOR 20 MG PO (08:33)
[2024-08-31] MEDS: APRESOLINE 100 MG PO ×3 (08:33→21:34)
[2024-08-31] MEDS: NORVASC 10 MG PO (08:34)
--- NOTE | 2024-08-31 11:35 | W.PN.HOSP.TC ---
Today's Communication/Plan
-
continue IV abx
await path
LimFlow Friday
Assessment / Plan
Assessment / Plan
Gen: continues to remain NAD, AAOx3.
Eyes: EOMI, PERRLA, no scleral icterus.
Neck: supple.
CV: continues to remain RRR, +S1/S2, no m/r/g.
Resp: CTAB, no rales, wheezes, or rhonchi.
Abd:+BS, soft, NT, ND
Skin: No rashes.
Neuro: CN 2-12 intact, non-focal.
Psych: Normal mood and affect.
Wound: Other (left foot dressing dry)
Assessment:
Worsening Gangrene Left Foot:
- s/p L open 3rd/4th partial ray amputations on 08/24/24
- Heel WBAT to LLE for transfers only
- follow Cxs/path (see above)
- cont Rocephin per ID
- vascular following, for Limflow procedure 09/01/24
DM2:
- HgbA1c 10.4 in June 2024
- Patient maintained on Ozempic as outpatient
- Holding metformin during hospitalization
- SSI/accu-checks
- cont Lantus/Glipizide
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
Essential Hypertension: Continue amlodipine/lisinopril/Hydralazine/HCTZ
Hyperlipidemia: cont Crestor
Hyponatremia, resolved
Obesity due to excess calories
DVT ppx: SC Heparin
Code: Full
Anticipated Discharge: > 48 hours
Subjective/Interval History
-
Date of Service: August 31, 2024
reports LLE pain around ulcer
Objective Data
-
Labs:
Laboratory Results
08/31/24
06:16
WBC 14.3 H
Hgb 9.3 L
Hct 28.2 L
Plt Count 368
Sodium 137
Potassium 4.5
Chloride 103
Carbon Dioxide 25
BUN 22 H
Creatinine 1.2
Glucose 113 H
Calcium 9.5
Vital Signs:
Vital Signs
Temp Pulse Resp BP Pulse Ox
98.4 F 90 17 151/73 97
08/31/24 07:22 08/31/24 08:33 08/31/24 07:22 08/31/24 08:33 08/31/24 07:22
I&O
08/30/24 08/31/24 09/01/24
06:59 06:59 06:59
Intake Total 2099 720 / 720
Balance 2099 720 / 720
Data Reviewed
-
Total Time Spent with Patient (in minutes): 41
Labs: Labs Reviewed by me
--- NOTE | 2024-08-31 11:36 | W.PN.ID1 ---
Date of Service
Date of Service: August 31, 2024
Today's Communication
Change ceftriaxone to Unasyn.
Assessment / Plan
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
# Recent history of left third toe osteomyelitis with dry gangrene of left 3rd and 4th toes status post 6 weeks of IV ceftriaxone and oral metronidazole completed late July 2024
# Severe PAD not amenable to angioplasty
# Diabetes mellitus with neuropathy
- August 24 status post open ray amputation of left 3rd and 4th toes, + myonecrosis
- OR cx Proteus, mixed anaerobes. Bone path pending.
- Vascular planning on LimFlow procedure tomorrow in attempt to salvage the limb.
- For definitive further foot surgery after vascular intervention, per Podiatry.
- Replace ceftriaxone with Unasyn to include anaerobic coverage.
Chief Complaint
-: Other (foot gangrene)
Subjective / Review of Systems
No complaints.
Vital Signs / Physical Exam
Vital Signs
Vital Signs
Temp Pulse Resp BP Pulse Ox
98.4 F 90 17 151/73 97
08/31/24 07:22 08/31/24 08:33 08/31/24 07:22 08/31/24 08:33 08/31/24 07:22
Physical Exam
Constitutional: No Acute Distress and Comfortable
Eyes: Sclera Anicteric
Cardiovascular: Regular Rate and S1/S2
Pulmonary: Clear
Gastrointestinal: Soft, Non Tender and Non Distended
Wound: Other (left foot dressing dry)
Neurological: AO x 3
Objective Data
Lab Data
Lab Results
08/31/24 06:16
08/31/24 06:16
Estimated Creat Clear 86 ml/min 08/31/24 06:16
Total Bilirubin 0.5 mg/dl (0.2-1.3) 08/23/24 15:30
AST 19 U/L (17-59) 08/23/24 15:30
ALT 24 U/L (0-50) 08/23/24 15:30
Alkaline Phosphatase 155 U/L (38-126) H 08/23/24 15:30
Most recent labs reviewed.
Micro Results:
08/24/24 16:00 Wound Culture - Final
Foot - Left Proteus mirabilis
Gram Stain - Final
08/24/24 16:00 Anaerobic Culture - Final
Foot - Left
08/23/24 Foot XRAY: Soft tissue swelling. Findings suspicious for subcutaneous emphysema involving the third and fourth digits, as described. However, no radiographic evidence to suggest osteomyelitis.
[2024-08-31] MEDS: UNASYN IV ×2 (12:43→17:57)
[2024-08-31 12:49] LABS: Glucose - Point of Care 92 mg/dl (70-99)
--- NOTE | 2024-08-31 15:10 | CM ---
CM following re: discharge planning.
Reviewed pt's chart, met with pt.
Per chart review, LimFlow Friday, continue supportive care.
[facility] liaison following. PT to issue a walker.
Pt stated his mother will transport home at discharge.
Please fax discharge instructions to [facility] at [phone].
D/c plan: home with [facility], a walker and a family support. Mother to transport at discharge.
CM will follow with discharge plan updates as needed.
[2024-08-31 15:12] VITALS: BP 164/84
[2024-08-31 16:56] LABS: Glucose - Point of Care 136 mg/dl (70-99)
[2024-08-31 21:42] LABS: Glucose - Point of Care 201 mg/dl (70-99)
[2024-08-31] MEDS: LANTUS 0.15 UNITS SC (22:30)
[2024-08-31 23:10] VITALS: BP 138/66
[2024-09-01] VITALS (20 sets, daily range): BP systolic 128–170; BP diastolic 50–92; BMI 34.5
[2024-09-01] MEDS: UNASYN IV ×5 (00:41→23:16)
[2024-09-01] MEDS: HEPARIN 5000 UNITS SC ×4 (00:41→23:16)
[2024-09-01] MEDS: DILAUDID 0.5 MG IV ×5 (02:24→21:49)
--- NOTE | 2024-09-01 07:07 | PN.DE.MGMTRT ---
Insulin Management
- -
09/01/2024: Diabetes Management Follow up
Patient presented to the ED with worsening chronic left foot nonhealing wound due to Diabetic foot infection with possible gangrene. PMH: HTN, HLD, NIDDM, PAD, Peripheral Neuropathy, and Class II Obesity. Pt was recently hospitalization for
gangrene of left 3rd and 4th toes due to PAD complicated by diabetic neuropathy. He was supposed to follow-up with podiatry or vascular surgery but he never did as instructed.
Of note patient is known to our service as we were consulted for his last admission (06/28/24- 07/03/24), for uncontrolled diabetes.
Last A1C was 10.4% on 06/28/24. Cr 1.0, eGFR >60, was taking Metformin 750mg daily and Ozempic Q Friday. Was provided with a Contour Next monitor during his last hospital visit.
Patient is asleep at the time of my visit, for procedure today, not awakened.
POD # 8 s/p left open 3rd/4th partial ray amputations, doing well overall. NPO this AM for LimFlow.
Cr 1.2, eGFR > 60. Current regimen glipizide 2.5 mg daily with hs lantus 15 units.
Glucose range 92 to 136 with one elevation @ HS. Fasting glucose 145, will cont Lantus 15 units @ HS, continue moderate corrective insulin AC with glipizide 2.5 mg daily. Patient states he is comfortable self injecting insulin; provided printed
instructions on step by step prep and injection technique. Patient states he is going to take this more seriously; he has reached out to his primary doctor to obtain a CGM.
Discussed with nurse. Due to NPO status held glipizide, will give with first meal.
Will cont to follow.
Pt was seen by the Diabetes RN Educator for Insulin instructions.
08/25 Had a lengthy and detailed discussion about current A1C, implications of uncontrolled diabetes, short and longterm complications including poor wound healing. Discussed dietary choices, especially carbohydrates and lean proteins, limiting
ordering out and making all meals at home. Emphasized importance of appropriate follow up with all specialists for ongoing care and encouraged consistent glucose monitoring at home.
Diabetes History
- -
Type of Diabetes: 2 requiring insulin
Pre-Admission Diabetes Regimen
08/31/24
06:16
Creatinine 1.2
Insulin Pump Settings
IP Diabetes Regimen
08/31/24 08/31/24 08/31/24
06:16 07:25 12:48
Glucose 113 H
POC Glucose 117 H 92
08/31/24 08/31/24
16:54 21:40
Glucose
POC Glucose 136 H 201 H
Meal type: Lunch
Meal type: Breakfast
Meal type: Breakfast
Amount consumed: 100%
Amount consumed: 100%
Amount consumed: 85%
Patient Education
[2024-09-01 07:10] LABS: Hematocrit 28.3 % (39.0-52.0); Hemoglobin 9.5 g/dL (13.0-18.0); Mean Corp Hgb Conc. 33.6 g/dL (33.0-37.0); Mean Corpuscular Hgb 29.9 pg (27.0-31.0); Mean Platelet Volume 9.4 fL (7.4-10.4); Platelet Count 389 10^3/uL (130-400); Red Blood Cell Count 3.18 10^6/uL (4.70-6.10); Red Cell Dist. Width 13.2 % (11.5-14.5); White Blood Cell Count 13.9 10^3/uL (4.8-10.8)
[2024-09-01 07:20] LABS: INR 1.13
[2024-09-01 07:21] LABS: APTT 41.8 Sec (23.4-35.0)
[2024-09-01 07:41] LABS: Blood Urea Nitrogen 21 mg/dl (9-20); Calcium 9.3 mg/dl (8.4-10.2); Carbon Dioxide 25 mmol/L (22-30); Chloride 104 mmol/L (98-107); Estimated Creatinine Clearance 79 ml/min; Glucose 150 mg/dl (70-99); Potassium 4.6 mmol/L (3.5-5.1); Sodium 137 mmol/L (135-145); eGFR > 60.00
[2024-09-01 08:05] LABS: Glucose - Point of Care 145 mg/dl (70-99)
[2024-09-01] MEDS: CRESTOR 20 MG PO (08:12)
[2024-09-01] MEDS: APRESOLINE 100 MG PO ×3 (08:12→21:48)
[2024-09-01] MEDS: ORETIC 25 MG PO (08:12)
[2024-09-01] MEDS: NORVASC 10 MG PO (08:12)
[2024-09-01] MEDS: ZESTRIL 40 MG PO (08:12)
[2024-09-01 08:26] LABS: Glucose - Point of Care 141 mg/dl (70-99)
--- NOTE | 2024-09-01 09:41 | W.PN.HOSP.TC ---
Today's Communication/Plan
-
for LimFlow procedure today
continue Unasyn
continue pain control
Assessment / Plan
Assessment / Plan
Gen: continues to remain NAD, AAOx3.
Eyes: EOMI, PERRLA, no scleral icterus.
Neck: supple.
CV: continues to remain RRR, +S1/S2, no m/r/g.
Resp: CTAB, no rales, wheezes, or rhonchi.
Abd:+BS, soft, NT, ND
Skin: No rashes.
Neuro: CN 2-12 intact, non-focal.
Psych: Normal mood and affect.
Wound: Other (left foot dressing dry)
Assessment:
Worsening Gangrene Left Foot:
- s/p L open 3rd/4th partial ray amputations on 08/24/24
- Heel WBAT to LLE for transfers only
- wound culture with proteus. Path without osteomyelitis
- cont Unasyn per ID
- vascular following, for Limflow procedure 09/01/24. If no improvement, ultimately may need amputation.
DM2:
- HgbA1c 10.4 in June 2024
- Patient maintained on Ozempic as outpatient
- Holding metformin during hospitalization
- SSI/accu-checks
- cont Lantus/Glipizide
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
Essential Hypertension: Continue amlodipine/lisinopril/Hydralazine/HCTZ
Hyperlipidemia: cont Crestor
Hyponatremia, resolved
Obesity due to excess calories
DVT ppx: SC Heparin
Code: Full
Anticipated Discharge: > 48 hours
Subjective/Interval History
-
Date of Service: September 01, 2024
resting comfortably, no complaints at present
Objective Data
-
Labs:
Laboratory Results
09/01/24
06:51
WBC 13.9 H
Hgb 9.5 L
Hct 28.3 L
Plt Count 389
PT 15.0 H
INR 1.13
APTT 41.8 H
Sodium 137
Potassium 4.6
Chloride 104
Carbon Dioxide 25
BUN 21 H
Creatinine 1.3
Glucose 150 H
Calcium 9.3
Vital Signs:
Vital Signs
Temp Pulse Resp BP Pulse Ox
98.7 F 88 18 159/74 97
09/01/24 07:30 09/01/24 08:12 09/01/24 07:30 09/01/24 08:12 09/01/24 07:30
I&O
08/31/24 09/01/24 09/02/24
06:59 06:59 06:59
Intake Total 720 / 720 1460 / 1460
Balance 720 / 720 1460 / 1460
Data Reviewed
-
Total Time Spent with Patient (in minutes): 41
Labs: Labs Reviewed by me
--- NOTE | 2024-09-01 10:20 | CM ---
M following re: discharge planning.
Reviewed pt's chart, met with pt.
Per chart review, LimFlow procedure today, continue supportive care.
[facility] liaison following. PT to issue a walker.
Pt stated his mother will transport home at discharge.
Please fax discharge instructions to [facility] at [phone].
D/c plan: home with [facility], a walker and a family support. Mother to transport at discharge.
CM will follow with discharge plan updates as needed.
[2024-09-01 11:29] LABS: Glucose - Point of Care 115 mg/dl (70-99)
[2024-09-01] MEDS: NOVOLOG FLEXPEN-MODERATE RESISTANCE SC ×2 (11:30→23:16)
--- NOTE | 2024-09-01 11:56 | PTCARENOTE ---
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
--- NOTE | 2024-09-01 13:25 | W.PN.UPDATE ---
Update Note
Progress Note Update
Discussed again with patient plan for attempted LLE LimFlow/TADV. Discussed procedure, risk/benefits/alternatives. Clearly discussed the possibility of this is not resulting in limb salvage, even in the setting of technical success. He
understands all and wishes to proceed. .
[2024-09-01 13:51] LABS: Glucose - Point of Care 114 mg/dl (70-99)
--- NOTE | 2024-09-01 14:20 | W.PN.ID1 ---
Date of Service
Date of Service: September 01, 2024
Today's Communication
Continue Unasyn through procedures. No need for long term care pharmacist abx.
Assessment / Plan
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
# Recent history of left third toe osteomyelitis with dry gangrene of left 3rd and 4th toes status post 6 weeks of IV ceftriaxone and oral metronidazole completed late July 2024
# Severe PAD not amenable to angioplasty
# Diabetes mellitus with neuropathy
- 08/24 status post open ray amputation of left 3rd and 4th toes, + myonecrosis
- OR cx Proteus, mixed anaerobes.
Bone path pending: gangrenous changes, skin and soft tissue, NO OSTEOMYELITIS
-For LimFlow procedure today in attempt to salvage the limb.
- For definitive further foot surgery after vascular intervention, per Podiatry.
- Continue Unasyn through procedures. No need for long term care pharmacist abx.
Chief Complaint
-: Other (foot gangrene)
Subjective / Review of Systems
No complaints.
Vital Signs / Physical Exam
Vital Signs
Vital Signs
Temp Pulse Resp BP Pulse Ox
98.7 F 88 18 159/74 97
09/01/24 07:30 09/01/24 08:12 09/01/24 07:30 09/01/24 08:12 09/01/24 07:30
Physical Exam
Constitutional: No Acute Distress and Comfortable
Eyes: Sclera Anicteric
Cardiovascular: Regular Rate and S1/S2
Pulmonary: Clear
Gastrointestinal: Soft, Non Tender and Non Distended
Wound: Other (left foot dressing dry)
Neurological: AO x 3
Objective Data
Lab Data
Lab Results
09/01/24 06:51
09/01/24 06:51
PT 15.0 Sec (11.4-14.6) H 05/21/25 06:51
INR 1.13 09/01/24 06:51
APTT 41.8 Sec (23.4-35.0) H 09/01/24 06:51
Estimated Creat Clear 79 ml/min 09/01/24 06:51
Total Bilirubin 0.5 mg/dl (0.2-1.3) 08/23/24 15:30
AST 19 U/L (17-59) 08/23/24 15:30
ALT 24 U/L (0-50) 08/23/24 15:30
Alkaline Phosphatase 155 U/L (38-126) H 08/23/24 15:30
Most recent labs reviewed.
Micro Results:
08/24/24 16:00 Wound Culture - Final
Foot - Left Proteus mirabilis
Gram Stain - Final
08/24/24 16:00 Anaerobic Culture - Final
Foot - Left
08/23/24 Foot XRAY: Soft tissue swelling. Findings suspicious for subcutaneous emphysema involving the third and fourth digits, as described. However, no radiographic evidence to suggest osteomyelitis.
--- NOTE | 2024-09-01 15:30 | W.SUR.POST ---
Surgical Immediate Post Op
Note
Pre Op Diagnosis: critical limb ischemia
Post Op Diagnosis: same
Procedure Performed: LLE venogram via plantar foot puncture
Primary Surgeon: Frederic
Anesthesia: local and sedation
Estimated Blood Loss: <2cc
Fluids: See anesthesia flow sheet
Drains/Shunts: none
Specimens/Cultures: none
Doppler/Duplex/Angio (Y/N): Y
Complications: none
Operative Findings: See operative report
[2024-09-01 15:49] LABS: Glucose - Point of Care 128 mg/dl (70-99)
--- NOTE | 2024-09-01 16:41 | OR.RPT ---
Operative Report
Operative Report
PROCEDURE DATE: 09/01/2024
Preoperative diagnosis:
1. Chronic limb threatening ischemia with significant tissue loss left foot.
2. 'Desert foot'/obliterative distal arterial occlusive disease.
Postoperative diagnosis: Same
Procedure:
1. Duplex assisted attempted cannulation of left foot lateral plantar vein.
2. Duplex assisted cannulation of left posterior tibial vein.
3. Left ankle and foot venography.
Surgeon: Frederic
Hematology Nurse: None
Complications: None
Anesthesia: General
Indications for procedure:
Patient brought for attempted TADV/LimFlow procedure as he had no further revascularization options and had significant left foot tissue loss. Risk/benefits/alternatives all extensively discussed. Patient understood and wished to proceed.
Description of procedure:
Patient was identified brought to the operating room placed on the table in supine position. After the adequate administration of anesthesia he was prepped and draped in the standard surgical fashion. A standard preoperative timeout was undertaken
and everybody was in agreement the plan. After the placement of an ankle tourniquet (pressure 100mm), under duplex assisted guidance I used a micropuncture needle to access the left foot lateral plantar vein. However I could not pass the wire
despite multiple attempts and trying different wires. I attempted to do a venogram through the needle, but was unable to inject contrast. I tried several other times accessing this vein and or other veins that I saw. However had the same problem.
He really had limited veins that I could visualize on ultrasound. Proved to be very challenging. Therefore in order to better assess the foot I elected to access the posterior tibial vein at the ankle. And then I could perform venography with
the tourniquet inflated to see if could feel the foot venous structures. Therefore I now punctured the left posterior tibial vein in a retrograde fashion using a micropuncture needle under direct duplex ultrasound guidance. I then advanced a
micropuncture sheath. The tourniquet was then inflated to 200 mm. Next venography was performed. The ankle veins were seen to fill, but but there was really minimal/no filling of venous structures in the foot. I felt that there was no real
venous outflow in the foot, and as a result the TADV/LimFlow is not feasible. At this point therefore, the micropuncture sheath was withdrawn and manual pressure was applied to the puncture site. The patient tolerated procedure well.
--- NOTE | 2024-09-01 16:48 | W.PN.UPDATE ---
Update Note
Progress Note Update
Attempted TADV/LimFlow. Venous access/venogram performed. No real venous outflow. Therefore could not perform TADV. Patient will require left BKA. Would recommend completing while he is here given the extent of his wound. Discussed with
patient and his family. They are all aware. They are in agreement to proceed. Will plan left BKA either tomorrow or the day after.
[2024-09-01] MEDS: NSS 1000 IV (17:00)
[2024-09-01] MEDS: ROXICODONE 5 MG PO (17:02)
[2024-09-01] MEDS: ANCEF 10 IV (17:08)
--- NOTE | 2024-09-01 17:32 | PTCARENOTE ---
Rec'd pt from PACU. L foot w/ mary lou wrap; c/d/i. L popliteal pulse present w/ doppler. L foot w/ normal sensation and movement. Pt sating 100% on 2L NC. Tele- SR. HR 90s.Pt c/o pain 10 at L foot. Oxycodone administered as ordered. Activity
restrictions reviewed w/ pt and verbalizes understanding. Currently in bed; call aaron w/in reach.
--- NOTE | 2024-09-01 17:40 | PTCARENOTE ---
Rec'd pt from PACU. L foot w/ mary lou wrap; c/d/i. L popliteal pulse present w/ doppler. Pt sating 100% on 2L NC. Tele- SR. HR 90s.Pt c/o pain 09/21 at L foot. Oxycodone administered as ordered. Activity restrictions reviewed w/ pt and verbalizes
understanding. Currently in bed; call aaron w/in reach.
[2024-09-01 18:27] LABS: Glucose - Point of Care 184 mg/dl (70-99)
[2024-09-01] MEDS: GLUCOTROL PO (18:30)
[2024-09-01] MEDS: NOVOLOG FLEXPEN-MODERATE RESISTANCE 1 UNITS SC (18:31)
[2024-09-01 22:35] LABS: Glucose - Point of Care 306 mg/dl (70-99)
[2024-09-01 22:37] LABS: Glucose - Point of Care 309 mg/dl (70-99)
[2024-09-01] MEDS: LANTUS SC (23:10)
[2024-09-01] MEDS: LANTUS 0.12 UNITS SC (23:11)
[2024-09-02] VITALS (8 sets, daily range): BP systolic 134–161; BP diastolic 69–75
[2024-09-02] MEDS: DILAUDID 0.5 MG IV ×4 (03:15→23:07)
[2024-09-02 04:12] LABS: Hematocrit 26.3 % (39.0-52.0); Hemoglobin 8.7 g/dL (13.0-18.0); Mean Corp Hgb Conc. 33.1 g/dL (33.0-37.0); Mean Corpuscular Hgb 29.5 pg (27.0-31.0); Mean Corpuscular Volume 89.2 fL (80.0-94.0); Mean Platelet Volume 9.6 fL (7.4-10.4); Platelet Count 443 10^3/uL (130-400); Red Blood Cell Count 2.95 10^6/uL (4.70-6.10); Red Cell Dist. Width 13.3 % (11.5-14.5); White Blood Cell Count 19.3 10^3/uL (4.8-10.8)
[2024-09-02 04:32] LABS: Blood Urea Nitrogen 24 mg/dl (9-20); Calcium 8.9 mg/dl (8.4-10.2); Carbon Dioxide 26 mmol/L (22-30); Chloride 102 mmol/L (98-107); Estimated Creatinine Clearance 79 ml/min; Glucose 230 mg/dl (70-99); Potassium 4.9 mmol/L (3.5-5.1); Sodium 136 mmol/L (135-145); eGFR > 60.00
--- NOTE | 2024-09-02 04:36 | PTCARENOTE ---
Left lower leg/foot pain well controlled with Dilaudid overnight, VSS, NSR on the monitor. Left foot surgical dressing CDI without any drainage, sensation present but dull, popliteal and posterior/tibial pulses present by Doppler. Pt. NPO for
possible OR later today - bathed with chlorhexidine wipes and left leg clipped, sheets changed. Pt. aware of plan, understanding verbalized. Currently sleeping.
[2024-09-02 05:16] LABS: Glucose - Point of Care 249 mg/dl (70-99)
[2024-09-02] MEDS: UNASYN IV ×4 (05:45→23:33)
[2024-09-02] MEDS: NOVOLOG FLEXPEN-MODERATE RESISTANCE 3 UNITS SC (05:46)
--- NOTE | 2024-09-02 09:03 | W.PN.ID1 ---
Date of Service
Date of Service: September 02, 2024
Today's Communication
- Continue Unasyn through procedures. No need for penitentiary abx.
Assessment / Plan
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
# Recent history of left third toe osteomyelitis with dry gangrene of left 3rd and 4th toes status post 6 weeks of IV ceftriaxone and oral metronidazole completed late July 2024
# Severe PAD not amenable to angioplasty
# Diabetes mellitus with neuropathy
- 08/24 status post open ray amputation of left 3rd and 4th toes, + myonecrosis
- OR cx Proteus, mixed anaerobes.
Bone path: gangrenous changes, skin and soft tissue, no evidence of osteomyelitis
- 09/01 LimFlow procedure was not feasible - for BKA today or tomorrow
- Continue Unasyn through procedures. No need for termite renewal inspector abx.
Chief Complaint
-: Other (foot gangrene)
Subjective / Review of Systems
afebrile
bp stable
limb flow was not feasible
Vital Signs / Physical Exam
Vital Signs
Vital Signs
Temp Pulse Resp BP Pulse Ox
99 F 93 20 161/71 96
09/02/24 07:46 09/02/24 07:46 09/02/24 07:46 09/02/24 07:46 09/02/24 07:46
Physical Exam
Constitutional: No Acute Distress
Cardiovascular: Regular Rate and S1/S2; Negative Murmur or Rub
Pulmonary: Clear and Symmetric; Negative Wheezes or Rales
Gastrointestinal: Soft, Non Tender, Non Distended and Normal Bowel Sounds
Skin: Warm and Dry; Negative Rash or Jaundice
Objective Data
Lab Data
Lab Results
09/02/24 03:22
09/02/24 03:22
PT 15.0 Sec (11.4-14.6) H 09/01/24 06:51
INR 1.13 09/01/24 06:51
APTT 41.8 Sec (23.4-35.0) H 09/01/24 06:51
Estimated Creat Clear 79 ml/min 09/02/24 03:22
Total Bilirubin 0.5 mg/dl (0.2-1.3) 08/23/24 15:30
AST 19 U/L (17-59) 08/23/24 15:30
ALT 24 U/L (0-50) 08/23/24 15:30
Alkaline Phosphatase 155 U/L (38-126) H 08/23/24 15:30
Most recent labs reviewed.
Micro Results:
08/24/24 16:00 Wound Culture - Final
Foot - Left Proteus mirabilis
Gram Stain - Final
08/24/24 16:00 Anaerobic Culture - Final
Foot - Left
08/23/24 Foot XRAY: Soft tissue swelling. Findings suspicious for subcutaneous emphysema involving the third and fourth digits, as described. However, no radiographic evidence to suggest osteomyelitis.
[2024-09-02] MEDS: ORETIC 25 MG PO (09:05)
[2024-09-02] MEDS: APRESOLINE 100 MG PO ×3 (09:05→21:13)
[2024-09-02] MEDS: NORVASC 10 MG PO (09:05)
[2024-09-02] MEDS: HEPARIN 5000 UNITS SC ×3 (09:05→23:17)
[2024-09-02] MEDS: CRESTOR 20 MG PO (09:05)
[2024-09-02] MEDS: ZESTRIL 40 MG PO (09:05)
[2024-09-02] MEDS: ROXICODONE 5 MG PO (09:06)
--- NOTE | 2024-09-02 11:27 | CM ---
Chart reviewed. Patient waiting for BKA. Patient is independent of ADLS, currently living with his mother and adult son in a 2nd floor apartment, elevator access, ambulates with a SPC. PT recommending RW at discharge. RW script placed in
patient's chart. PT recommending VN. [facility]. PT to assess patient's functional needs after surgery. CM to follow
[2024-09-02 12:24] LABS: Glucose - Point of Care 137 mg/dl (70-99)
[2024-09-02] MEDS: GLUCOTROL 2.5 MG PO (12:24)
[2024-09-02] MEDS: NOVOLOG FLEXPEN-MODERATE RESISTANCE SC ×2 (12:26→23:20)
--- NOTE | 2024-09-02 13:19 | W.PN.HOSP.TC ---
Today's Communication/Plan
-
L BKA 09/03
Assessment / Plan
Assessment / Plan
Gen: continues to remain NAD, AAOx3.
Eyes: EOMI, PERRLA, no scleral icterus.
Neck: supple.
CV: continues to remain RRR, +S1/S2, no m/r/g.
Resp: CTAB, no rales, wheezes, or rhonchi.
Abd:+BS, soft, NT, ND
Skin: No rashes.
Neuro: CN 2-12 intact, non-focal.
Psych: Normal mood and affect.
Wound: Other (left foot dressing dry)
Assessment:
Worsening Gangrene Left Foot:
- s/p L open 3rd/4th partial ray amputations on 08/24/24
- Heel WBAT to LLE for transfers only
- wound culture with proteus. Path without osteomyelitis
- cont Unasyn per ID
- vascular following. s/p attempt for Limflow procedure 09/01/24; unable to perform to no real venous outflow
- BKA discussed, NPO p MN for OR 09/03
DM2:
- HgbA1c 10.4 in June 2024
- Patient maintained on Ozempic as outpatient
- Holding metformin during hospitalization
- SSI/accu-checks
- cont Lantus/Glipizide
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
Essential Hypertension: Continue amlodipine/lisinopril/Hydralazine/HCTZ
Hyperlipidemia: cont Crestor
Hyponatremia, resolved
Obesity due to excess calories
DVT ppx: SC Heparin
Code: Full
Anticipated Discharge: > 48 hours
Subjective/Interval History
-
Date of Service: September 02, 2024
denies any new complaints
now agreeable to BKA
Objective Data
-
Labs:
Laboratory Results
05/22/25
03:22
WBC 19.3 H
Hgb 8.7 L
Hct 26.3 L
Plt Count 443 H
Sodium 136
Potassium 4.9
Chloride 102
Carbon Dioxide 26
BUN 24 H
Creatinine 1.3
Glucose 230 H
Calcium 8.9
Vital Signs:
Vital Signs
Temp Pulse Resp BP Pulse Ox
98.7 F 94 20 147/69 97
09/02/24 11:23 09/02/24 11:24 09/02/24 11:23 09/02/24 11:24 09/02/24 11:23
I&O
09/01/24 09/02/24 09/03/24
06:59 06:59 06:59
Intake Total 1460 / 1460 1060 / 1060
Output Total 1300 / 1300
Balance 1460 / 1460 -240 / -240
Data Reviewed
-
Total Time Spent with Patient (in minutes): 41
Labs: Labs Reviewed by me
--- NOTE | 2024-09-02 14:45 | PTCARENOTE ---
Report given to Kirsty RN. Pt transported via stretcher to [address] [place] [address] [id number]. Belongings collected and sent w/ pt.
--- NOTE | 2024-09-02 15:07 | PTCARENOTE ---
Patient transferred back to [address] [place] [address] from IVU to [id number].The patient is alert and oriented.He rates his pain at a 5 out of 10.The patient is scheduled for the OR tomorrow for a left BKA.He is sitting in his chair with the call walker in reach.
[2024-09-02 16:01] LABS: Glucose - Point of Care 186 mg/dl (70-99)
[2024-09-02] MEDS: NOVOLOG FLEXPEN-MODERATE RESISTANCE 1 UNITS SC (17:24)
--- NOTE | 2024-09-02 18:51 | PN.DE.MGMTRT ---
Insulin Management
- -
09/02/2024: Diabetes Management Follow up
Patient presented to the ED with worsening chronic left foot nonhealing wound due to Diabetic foot infection with possible gangrene. PMH: HTN, HLD, NIDDM, PAD, Peripheral Neuropathy, and Class II Obesity. Pt was recently hospitalization for
gangrene of left 3rd and 4th toes due to PAD complicated by diabetic neuropathy. He was supposed to follow-up with podiatry or vascular surgery but he never did as instructed.
Of note patient is known to our service as we were consulted for his last admission (06/28/24- 07/03/24), for uncontrolled diabetes.
Last A1C was 10.4% on 06/28/24. Cr 1.0-->1.3 today, eGFR >60, was taking Metformin 750mg daily and Ozempic Q Friday. Was provided with a Contour Next monitor during his last hospital visit.
Patient awake, alert, oriented, resting in bed, family at bedside, very supportive.
POD # 9 s/p left open 3rd/4th partial ray amputations, doing well overall. S/P attempt for Limflow procedure 09/01/24; unable to perform to no real venous outflow. For Left BKA tomorrow, NPO after MN for OR 09/03
Current regimen glipizide 2.5 mg daily with hs Lantus 15 units.
Of note pt did not receive his Glipizide dose yesterday. Glucose trended up to 309 @ HS and received reduced dose of Lantus 12 units @ HS, FBG 249 this AM.
Discussed with Nurse and instructed to give ordered dose of Lantus tonight, to avoid Hyperglycemia overnight and @ fasting.
Will cont Lantus 15 units @ HS, continue moderate corrective insulin AC with glipizide 2.5 mg daily.
Will cont to follow.
Pt was seen by the Diabetes RN Educator for Insulin instructions.
States he is comfortable self injecting insulin; provided printed instructions on step by step prep and injection technique. Patient states he is going to take this more seriously; he has reached out to his primary doctor to obtain a CGM.
08/25 Had a lengthy and detailed discussion about current A1C, implications of uncontrolled diabetes, short and correction complications including poor wound healing. Discussed dietary choices, especially carbohydrates and lean proteins, limiting
ordering out and making all meals at home. Emphasized importance of appropriate follow up with all specialists for ongoing care and encouraged consistent glucose monitoring at home.
Diabetes History
- -
Type of Diabetes: 2 requiring insulin
Pre-Admission Diabetes Regimen
09/02/24
03:22
Creatinine 1.3
Insulin Pump Settings
IP Diabetes Regimen
09/01/24 09/01/24 09/02/24
22:33 22:36 03:22
Glucose 230 H
POC Glucose 306 H 309 H
09/02/24 09/02/24 09/02/24
05:14 12:23 15:58
Glucose
POC Glucose 249 H 137 H 186 H
Meal type: Lunch
Meal type: Breakfast
Meal type: Dinner
Amount consumed: 75%
Amount consumed: 50%
Patient Education
[2024-09-02 20:57] LABS: Glucose - Point of Care 231 mg/dl (70-99)
[2024-09-02] MEDS: LANTUS SC (21:13)
[2024-09-03] VITALS (14 sets, daily range): BP systolic 147–183; BP diastolic 63–98; BMI 34.6
[2024-09-03] MEDS: ROXICODONE 5 MG PO (04:16)
[2024-09-03] MEDS: UNASYN IV ×2 (05:19→11:59)
[2024-09-03 06:16] LABS: Glucose - Point of Care 122 mg/dl (70-99)
[2024-09-03] MEDS: NOVOLOG FLEXPEN-MODERATE RESISTANCE SC (06:22)
[2024-09-03] MEDS: PERIDEX 0.12% ORAL RINSE 15 ML PO (06:24)
[2024-09-03] MEDS: BACTROBAN 2% OINTMENT 1 APPLIC NASAL (06:25)
[2024-09-03 07:08] LABS: Hematocrit 27.4 % (39.0-52.0); Mean Corp Hgb Conc. 32.8 g/dL (33.0-37.0); Mean Corpuscular Hgb 29.3 pg (27.0-31.0); Mean Corpuscular Volume 89.3 fL (80.0-94.0); Mean Platelet Volume 9.5 fL (7.4-10.4); Platelet Count 426 10^3/uL (130-400); Red Blood Cell Count 3.07 10^6/uL (4.70-6.10); Red Cell Dist. Width 13.4 % (11.5-14.5); White Blood Cell Count 13.9 10^3/uL (4.8-10.8)
--- NOTE | 2024-09-03 07:20 | W.SUR.PREOP ---
Pre-Operative Surgical Note
-
I have examined this patient prior to the performance of the scheduled procedure.
The patient's condition is unchanged from the time of the current History and
Physical and the patient is able to undergo the scheduled procedure.
Discussed risk/benefits/alternatives of left below the knee amputation left lower extremity. Discussed risk including evaluated to bleeding, infection, nonhealing requiring revision. He understands all wishes to proceed.
[2024-09-03 07:47] LABS: Blood Urea Nitrogen 23 mg/dl (9-20); Calcium 8.9 mg/dl (8.4-10.2); Carbon Dioxide 28 mmol/L (22-30); Chloride 105 mmol/L (98-107); Estimated Creatinine Clearance 79 ml/min; Glucose 114 mg/dl (70-99); Potassium 4.4 mmol/L (3.5-5.1); Sodium 139 mmol/L (135-145); eGFR > 60.00
[2024-09-03] MEDS: HEPARIN SC (08:00)
--- NOTE | 2024-09-03 08:51 | W.PN.HOSP.TC ---
Today's Communication/Plan
-
L BKA procedure today
Assessment / Plan
Assessment / Plan
Gen: continues to remain NAD, AAOx3.
Eyes: EOMI, PERRLA, no scleral icterus.
Neck: supple.
CV: continues to remain RRR, +S1/S2, no m/r/g.
Resp: CTAB, no rales, wheezes, or rhonchi.
Abd:+BS, soft, NT, ND
Skin: No rashes.
Neuro: CN 2-12 intact, non-focal.
Psych: Normal mood and affect.
Wound: Other (left foot dressing dry)
Assessment:
Worsening Gangrene Left Foot:
- s/p L open 3rd/4th partial ray amputations on 08/24/24
- Heel WBAT to LLE for transfers only
- wound culture with proteus. Path without osteomyelitis
- cont Unasyn per ID
- vascular following. s/p attempt for Limflow procedure 09/01/24; unable to perform to no real venous outflow
- L BKA procedure today
DM2:
- HgbA1c 10.4 in June 2024
- Patient maintained on Ozempic as outpatient
- Holding metformin during hospitalization
- SSI/accu-checks
- cont Lantus/Glipizide
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
Essential Hypertension: Continue amlodipine/lisinopril/Hydralazine/HCTZ
Hyperlipidemia: cont Crestor
Hyponatremia, resolved
Obesity due to excess calories
DVT ppx: SC Heparin
Code: Full
Anticipated Discharge: > 48 hours
Subjective/Interval History
-
Date of Service: September 03, 2024
no new complaints
for BKA today
Objective Data
-
Labs:
Laboratory Results
09/03/24
06:41
WBC 13.9 H
Hgb 9.0 L
Hct 27.4 L
Plt Count 426 H
Sodium 139
Potassium 4.4
Chloride 105
Carbon Dioxide 28
BUN 23 H
Creatinine 1.3
Glucose 114 H
Calcium 8.9
Vital Signs:
Vital Signs
Temp Pulse Resp BP Pulse Ox
99 F 89 16 136/72 96
09/02/24 23:55 09/02/24 23:55 09/02/24 23:55 09/02/24 23:55 09/02/24 23:55
I&O
09/02/24 09/03/24 09/04/24
06:59 06:59 06:59
Intake Total 1060 / 1060 120 / 120 240 / 240
Output Total 1300 / 1300
Balance -240 / -240 120 / 120 240 / 240
Data Reviewed
-
Total Time Spent with Patient (in minutes): 41
Labs: Labs Reviewed by me
--- NOTE | 2024-09-03 08:55 | OR.RPT ---
Operative Report
Operative Report
PROCEDURE DATE: 09/03/2024
Preoperative diagnosis:
1. Extensive tissue loss/gangrene left foot, nonhealing.
2. 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
Postoperative diagnosis: Same
Procedure: Left below the knee amputation
Surgeon: Frederic
Digital Marketing Executive: MONO De La Fuente, required for all aspects of procedure including assistance with traction/countertraction, assistance with closure.
Complications: None
Anesthesia: General
Indications for procedure:
Patient with ischemic distal tissues. Distal obliterative disease. No further revascularizable options. Source control partial TMA nonhealing. Risk/benefits/alternatives of left BKA discussed. Patient understood and wished to proceed.
Description of procedure:
Patient was identified brought to the operating room placed on the table in supine position. After the adequate administration of anesthesia and perioperative antibiotics he was prepped and draped in the standard surgical fashion. A standard
preoperative timeout was undertaken and everybody was in agreement the plan. Standard posterior flap type incisions were made in the left lower extremity with a transverse incision anteriorly at approximately 12 cm distal to the tibial tuberosity.
Medial and lateral longitudinal incisions were carried down. And then posterior transverse incision was then again carried down. The incisions were carried through the skin subcutaneous tissue with the electrocautery and then through the fascial
layer. Hemostasis was achieved as we progressed. Next the muscles of the anterior and lateral compartments of the calf were divided with electrocautery. The anterior tibial neurovascular bundle was ligated between silk ties and then divided. The
muscles/attachments of the tibia medially were also divided with electrocautery. As such the tibia was then freed of all its attachments and a periosteal elevator was used to elevate the periosteum circumferentially. The fibula was similarly freed
of all its surrounding soft tissue and muscles. These were transected with electrocautery. The intermuscular septum was then divided with electrocautery. Circumferential dissection of the fibula was undertaken carefully and a periosteal elevator
was used to elevate the periosteum circumferentially around the fibula as well. At this point the tibia and fibula were transected with an oscillating saw. The posterior tissues were then cut with a amputation knife and a direction parallel to the
access of the leg. This was then teed off in a perpendicular access at the distal posterior transverse skin incision site. The leg specimen was then removed. The peroneal and posterior tibial arteries were then controlled with hemostats. These
were then ligated. (Ligated distally and the transection site, and any other bleeding sites along the way with [id number] silk suture ligatures). Next I removed any redundant muscle with the electrocautery. I then re-ligated the peroneal and
posterior tibial arteries and veins with silk suture ligatures proximally just distal to the bone transection site. Next hemostasis was achieved throughout the muscle bed with [id number] 2-0 silk suture. Next the oscillating saw was used to
bevel the anterior aspect of the tibia so as to avoid any pressure point. A rasp was used to smooth the edges. The fibula was then re- transected with the oscillating saw to a point approximately 1 cm proximal to the tibial transection. The edges
were noted to be nice and smooth. Next we irrigated copiously. Hemostasis was achieved and confirmed. We then closed in layers after trimming the skin flap of any redundant/dogear type projections. 0 Vicryl interrupted suture was used to
reapproximate the fascial layer. Next running 3-0 Vicryl deep dermal suture layer was run. Finally skin clips were applied. Bulky dressings were applied. The patient tolerated procedure well. All sponge, needle, instrument counts were correct
at the end of the case. The patient was transferred to the recovery room in stable condition.
--- NOTE | 2024-09-03 09:00 | W.SUR.POST ---
Surgical Immediate Post Op
Note
Pre Op Diagnosis: nonhealing wound, PAD
Post Op Diagnosis: same
Procedure Performed: Left BKA
Primary Surgeon: Frederic
Assist: Leisa EATON
Anesthesia: general
Estimated Blood Loss: 100cc
Fluids: See anesthesia flowsheet
Drains/Shunts: None
Specimens/Cultures: Left leg
Doppler/Duplex/Angio (Y/N): No
Complications: None
Operative Findings: Successful BKA
[2024-09-03 09:12] LABS: Glucose - Point of Care 140 mg/dl (70-99)
[2024-09-03] MEDS: DILAUDID 0.5 MG IV ×2 (09:14→09:28)
[2024-09-03] MEDS: D5/0.45%NACL 1000 IV (09:30)
[2024-09-03] MEDS: DILAUDID PCA 30 IV (09:38)
[2024-09-03] MEDS: NSS 1000 IV (10:20)
--- NOTE | 2024-09-03 10:20 | PN.DE.MGMTRT ---
Insulin Management
- -
09/03/2024: Diabetes Management Follow up
Patient presented to the ED with worsening chronic left foot nonhealing wound due to Diabetic foot infection with possible gangrene. PMH: HTN, HLD, NIDDM, PAD, Peripheral Neuropathy, and Class II Obesity. Pt was recently hospitalization for
gangrene of left 3rd and 4th toes due to PAD complicated by diabetic neuropathy. He was supposed to follow-up with podiatry or vascular surgery but he never did as instructed.
Of note patient is known to our service as we were consulted for his last admission (06/28/24- 07/03/24), for uncontrolled diabetes.
Last A1C was 10.4% on 06/28/24. Cr 1.0-->1.3 today, eGFR >60, was taking Metformin 750mg daily and Ozempic Q Friday. Was provided with a Contour Next monitor during his last hospital visit. POD # 9 s/p left open 3rd/4th partial ray amputations. S/P
attempt for Limflow procedure 09/01/24; unable to perform to no real venous outflow.
Patient awake, alert, oriented, resting in bed, family at bedside, very supportive.
POD # 0 s/p Left BKA. Glucose stable. Fasting was 122 and 140 POC after OR.
Current regimen glipizide 2.5 mg daily with hs Lantus 15 units.
Discussed with Nurse and instructed to give ordered dose of Glipizide 2.5mg today after procedure.
Will cont Lantus 15 units @ HS, continue moderate corrective insulin AC with glipizide 2.5 mg daily.
Will cont to follow.
Pt was seen by the Diabetes RN Educator for Insulin instructions.
States he is comfortable self injecting insulin; provided printed instructions on step by step prep and injection technique. Patient states he is going to take this more seriously; he has reached out to his primary doctor to obtain a CGM.
08/25 Had a lengthy and detailed discussion about current A1C, implications of uncontrolled diabetes, short and longterm complications including poor wound healing. Discussed dietary choices, especially carbohydrates and lean proteins, limiting
ordering out and making all meals at home. Emphasized importance of appropriate follow up with all specialists for ongoing care and encouraged consistent glucose monitoring at home.
Diabetes History
- -
Type of Diabetes: 2 requiring insulin
Pre-Admission Diabetes Regimen
09/03/24
06:41
Creatinine 1.3
Insulin Pump Settings
IP Diabetes Regimen
09/02/24 09/02/24 09/02/24
12:23 15:58 20:55
Glucose
POC Glucose 137 H 186 H 231 H
09/03/24 09/03/24 09/03/24
06:14 06:41 09:10
Glucose 114 H
POC Glucose 122 H 140 H
Meal type: Dinner
Meal type: Lunch
Amount consumed: 75%
Patient Education
[2024-09-03 11:39] LABS: Hematocrit 28.5 % (39.0-52.0); Hemoglobin 9.5 g/dL (13.0-18.0); Mean Corp Hgb Conc. 33.3 g/dL (33.0-37.0); Mean Corpuscular Hgb 29.9 pg (27.0-31.0); Mean Corpuscular Volume 89.6 fL (80.0-94.0); Mean Platelet Volume 9.3 fL (7.4-10.4); Platelet Count 441 10^3/uL (130-400); Red Blood Cell Count 3.18 10^6/uL (4.70-6.10); Red Cell Dist. Width 13.5 % (11.5-14.5); White Blood Cell Count 14.2 10^3/uL (4.8-10.8)
[2024-09-03] MEDS: CRESTOR 20 MG PO (11:54)
[2024-09-03] MEDS: GLUCOTROL 2.5 MG PO (11:55)
[2024-09-03] MEDS: NORVASC 10 MG PO (11:56)
[2024-09-03] MEDS: ZESTRIL 40 MG PO (11:57)
[2024-09-03] MEDS: ORETIC 25 MG PO (11:57)
[2024-09-03] MEDS: APRESOLINE 100 MG PO ×3 (11:57→21:46)
[2024-09-03 12:05] LABS: Glucose - Point of Care 212 mg/dl (70-99)
[2024-09-03] MEDS: NOVOLOG FLEXPEN-MODERATE RESISTANCE 3 UNITS SC (12:05)
--- NOTE | 2024-09-03 12:14 | PTCARENOTE ---
pt received to 210 via bed from PACU @1040. pt awake and alert, assessment as documented. pt states LLE pain is an 8-pt educated concerning CLOTH REELER pain management. pt verbalized understanding. Left BKA dressing clean and dry. telemetry placed and
reading SR-ST 90-100's. 96% on 2L NC. tolerating sips of water, denies interest in food at present time. care ongoing.
--- NOTE | 2024-09-03 13:04 | CM ---
CM following re: discharge planning.
Reviewed pt's chart, met with pt.
Pt is s/p Left BKA 09/03/24, continue supportive care. PT and OT will evaluate when clinically appropriate.
Pt most likely will need SNF level of care upon the discharge.
D/C plan: most likely SNF level of care. Awaiting for PT/OT evaluations.
CM will follow with discharge plan updates as hospitalization progresses
--- NOTE | 2024-09-03 14:35 | W.PN.ID1 ---
Date of Service
Date of Service: September 03, 2024
Today's Communication
- s/p BKA
- stopped antibiotics
ID service will no longer actively follow this patient please recall for further questions
Assessment / Plan
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
# Recent history of left third toe osteomyelitis with dry gangrene of left 3rd and 4th toes status post 6 weeks of IV ceftriaxone and oral metronidazole completed late July 2024
# Severe PAD not amenable to angioplasty
# Diabetes mellitus with neuropathy
- s/p BKA
- stopped antibiotics
ID service will no longer actively follow this patient please recall for further questions
Chief Complaint
-: Other (foot gangrene)
Subjective / Review of Systems
afebrile
bp stable
tolerating current therapies
s/p BKA
Vital Signs / Physical Exam
Vital Signs
Vital Signs
Temp Pulse Resp BP Pulse Ox
98.0 F 103 18 153/79 95
09/03/24 13:40 09/03/24 13:40 09/03/24 13:40 09/03/24 13:40 09/03/24 13:40
Physical Exam
Constitutional: No Acute Distress
Cardiovascular: Regular Rate
Pulmonary: Symmetric
Gastrointestinal: Non Distended
Skin: Dry
Wound: Other (s/p BKA, dressing in place)
Neurological: Awake
Objective Data
Lab Data
Lab Results
09/03/24 11:29
09/03/24 06:41
PT 15.0 Sec (11.4-14.6) H 09/01/24 06:51
INR 1.13 09/01/24 06:51
APTT 41.8 Sec (23.4-35.0) H 09/01/24 06:51
Estimated Creat Clear 79 ml/min 09/03/24 06:41
Total Bilirubin 0.5 mg/dl (0.2-1.3) 08/23/24 15:30
AST 19 U/L (17-59) 08/23/24 15:30
ALT 24 U/L (0-50) 08/23/24 15:30
Alkaline Phosphatase 155 U/L (38-126) H 08/23/24 15:30
Most recent labs reviewed.
Micro Results:
08/24/24 16:00 Wound Culture - Final
Foot - Left Proteus mirabilis
Gram Stain - Final
08/24/24 16:00 Anaerobic Culture - Final
Foot - Left
08/23/24 Foot XRAY: Soft tissue swelling. Findings suspicious for subcutaneous emphysema involving the third and fourth digits, as described. However, no radiographic evidence to suggest osteomyelitis.
[2024-09-03] MEDS: HEPARIN 5000 UNITS SC ×2 (16:42→23:26)
[2024-09-03 16:54] LABS: Glucose - Point of Care 266 mg/dl (70-99)
[2024-09-03] MEDS: NOVOLOG FLEXPEN-MODERATE RESISTANCE 5 UNITS SC (17:08)
[2024-09-03] MEDS: COLACE 100 MG PO (21:46)
[2024-09-03] MEDS: LANTUS 0.15 UNITS SC (21:47)
[2024-09-03 21:49] LABS: Glucose - Point of Care 290 mg/dl (70-99)
[2024-09-04] VITALS (9 sets, daily range): BP systolic 140–165; BP diastolic 63–86; PULSE 96–105; O2SAT 94–98; BMI 34.7
[2024-09-04 07:16] LABS: Hematocrit 26.5 % (39.0-52.0); Hemoglobin 8.7 g/dL (13.0-18.0); Mean Corp Hgb Conc. 32.8 g/dL (33.0-37.0); Mean Corpuscular Hgb 29.5 pg (27.0-31.0); Mean Corpuscular Volume 89.8 fL (80.0-94.0); Mean Platelet Volume 9.5 fL (7.4-10.4); Platelet Count 454 10^3/uL (130-400); Red Blood Cell Count 2.95 10^6/uL (4.70-6.10); Red Cell Dist. Width 13.4 % (11.5-14.5); White Blood Cell Count 13.6 10^3/uL (4.8-10.8)
[2024-09-04 07:31] LABS: Glucose - Point of Care 162 mg/dl (70-99)
[2024-09-04 07:49] LABS: Blood Urea Nitrogen 19 mg/dl (9-20); Calcium 8.7 mg/dl (8.4-10.2); Carbon Dioxide 25 mmol/L (22-30); Chloride 104 mmol/L (98-107); Estimated Creatinine Clearance 103 ml/min; Glucose 166 mg/dl (70-99); Potassium 4.7 mmol/L (3.5-5.1); Sodium 135 mmol/L (135-145); eGFR > 60.00
[2024-09-04] MEDS: HEPARIN 5000 UNITS SC ×3 (08:22→23:42)
[2024-09-04] MEDS: NOVOLOG FLEXPEN-MODERATE RESISTANCE 1 UNITS SC ×3 (08:24→17:17)
[2024-09-04] MEDS: MIRALAX 17 GRAMS PO (08:26)
[2024-09-04] MEDS: ORETIC 25 MG PO (08:30)
[2024-09-04] MEDS: GLUCOTROL 2.5 MG PO (08:31)
[2024-09-04] MEDS: ZESTRIL 40 MG PO (08:31)
[2024-09-04] MEDS: COLACE PO (08:32)
[2024-09-04] MEDS: APRESOLINE 100 MG PO ×3 (08:32→21:49)
[2024-09-04] MEDS: NORVASC 10 MG PO (08:35)
[2024-09-04] MEDS: CRESTOR 20 MG PO (08:36)
--- NOTE | 2024-09-04 09:34 | W.PN.HOSP.TC ---
Today's Communication/Plan
-
SAND MIXER pain control today with transition to orals tomorrow
PT/OT when able
Assessment / Plan
Assessment / Plan
Assessment:
Worsening Gangrene Left Foot:
- s/p L open 3rd/4th partial ray amputations on 08/24/24
- Heel WBAT to LLE for transfers only
- wound culture with proteus. Path without osteomyelitis. Abx stopped with BKA resulting in source control.
- vascular following. s/p attempt for Limflow procedure 09/01/24; unable to perform to no real venous outflow. s/p L BKA 09/03
- pain control. continue SAND MIXER today and wean to orals on 09/05, d/w Dr. De La Garza and patient.
- Next dressing change is in 24-48 hours
- PT/OT when appropriate; likely will need SNF.
DM2:
- HgbA1c 10.4 in June 2024
- Patient maintained on Ozempic as outpatient
- Holding metformin during hospitalization
- SSI/accu-checks
- cont Lantus/Glipizide
- diabetes SENIOR UI UX DEVELOPER following
Essential Hypertension: Continue amlodipine/lisinopril/Hydralazine/HCTZ
Hyperlipidemia: cont Crestor
Hyponatremia, resolved
Obesity due to excess calories
DVT ppx: SC Heparin
Code: Full
Anticipated Discharge: > 48 hours
Subjective/Interval History
-
Date of Service: September 04, 2024
resting comfortably
pain well controlled on SAND MIXER
Objective Data
-
Labs:
Laboratory Results
09/04/24
06:14
WBC 13.6 H
Hgb 8.7 L
Hct 26.5 L
Plt Count 454 H
Sodium 135
Potassium 4.7
Chloride 104
Carbon Dioxide 25
BUN 19
Creatinine 1.0
Glucose 166 H
Calcium 8.7
Vital Signs:
Vital Signs
Temp Pulse Resp BP Pulse Ox
98.9 F 93 16 159/86 99
09/04/24 07:30 09/04/24 07:30 09/04/24 08:00 09/04/24 08:31 09/04/24 08:50
I&O
09/03/24 09/04/24 09/05/24
06:59 06:59 06:59
Intake Total 120 / 120 1480 / 1480 400 / 400
Output Total 2750 / 2750 350 / 350
Balance 120 / 120 -1270 / -1270 50 / 50
Physical Exam
-
General: No Apparent Distress
HEENT: Normocephalic and Atraumatic
Respiratory: Negative Wheezes
Cardiac: Regular Rhythm and S1/S2
GI: Soft
Genito-urinary: No Costovertebral Tender
Musculoskeletal: Other (L BKA)
Neuro: AO x 3
Psych: Calm
Data Reviewed
-
Total Time Spent with Patient (in minutes): 44
Labs: Labs Reviewed by me
--- NOTE | 2024-09-04 09:34 | W.PN.VS ---
Today's Communication / Plan
-
See plan below for today 09/04/2024.
Assessment/Plan
-
Postoperative day #1 status post left BKA. Appears to be doing well overall. Feels better (likely some component of infection was wearing him down preoperatively, and now with source control doing much better). PT/OT. Okay for out of bed to
chair. Okay for transition to p.o. pain medications if that is felt to be better or alternatively could continue 24 more hours of MOISTURE TESTER. I am okay either way. Discussed with hospitalist Dr. Godinez.
-
Total Time Spent with Patient (in minutes): 10
Subjective Data
-
Date of Service: September 04, 2024
Patient is actually without significant complaints. Pain is well-tolerated. He notes to me that he feels much better than preoperatively. He notes that his spirits feel better, he overall just feels better, and his pain is improved.
Objective Data
-
Vital Signs
Temp Pulse Resp BP Pulse Ox
98.9 F 93 16 159/86 99
09/04/24 07:30 09/04/24 07:30 09/04/24 08:00 09/04/24 08:31 09/04/24 08:50
Intake and Output
09/03/24 09/04/24 09/05/24
06:59 06:59 06:59
Intake Total 120 / 120 1480 / 1480 400 / 400
Output Total 2750 / 2750 350 / 350
Balance 120 / 120 -1270 / -1270 50 / 50
Intake:
Oral fluids 960 / 960 320 / 320
IV fluids (Total) 280 / 280 80 / 80
IV piggybacks 120 / 120 240 / 240
Output:
Urine, Bustamante 2049 / 2049 350 / 350
Urine, Voided 700 / 700
Other:
Number of approximated MODERATE 1
amounts of urine
Lab Results
09/04/24 06:14
09/04/24 06:14
Calcium 8.7 mg/dl (8.4-10.2) 09/04/24 06:14
Total Bilirubin 0.5 mg/dl (0.2-1.3) 08/23/24 15:30
AST 19 U/L (17-59) 08/23/24 15:30
ALT 24 U/L (0-50) 08/23/24 15:30
Alkaline Phosphatase 155 U/L (38-126) H 08/23/24 15:30
Total Protein 6.8 g/dl (6.3-8.2) 08/23/24 15:30
Albumin 4.0 g/dl (3.5-5.0) 08/23/24 15:30
Physical Exam
-
Afebrile.
Awake and alert.
Left BKA dressing is clean dry and intact. No evidence of blood staining or hematoma.
[2024-09-04] MEDS: NSS 1000 IV (10:32)
[2024-09-04 11:42] LABS: Glucose - Point of Care 181 mg/dl (70-99)
[2024-09-04 16:51] LABS: Glucose - Point of Care 157 mg/dl (70-99)
[2024-09-04] MEDS: DILAUDID PCA 30 IV (19:22)
[2024-09-04] MEDS: COLACE 100 MG PO (20:02)
[2024-09-04 21:33] LABS: Glucose - Point of Care 228 mg/dl (70-99)
[2024-09-04] MEDS: LANTUS 0.15 UNITS SC (21:50)
[2024-09-05 03:23] VITALS: BP 144/66
[2024-09-05 06:24] VITALS: BMI 35.1
[2024-09-05 06:50] LABS: Hematocrit 25.6 % (39.0-52.0); Hemoglobin 8.4 g/dL (13.0-18.0); Mean Corp Hgb Conc. 32.8 g/dL (33.0-37.0); Mean Corpuscular Hgb 29.6 pg (27.0-31.0); Mean Corpuscular Volume 90.1 fL (80.0-94.0); Mean Platelet Volume 9.2 fL (7.4-10.4); Platelet Count 457 10^3/uL (130-400); Red Blood Cell Count 2.84 10^6/uL (4.70-6.10); Red Cell Dist. Width 13.4 % (11.5-14.5); White Blood Cell Count 10.9 10^3/uL (4.8-10.8)
[2024-09-05 07:15] VITALS: BP 144/77
[2024-09-05 07:17] LABS: Blood Urea Nitrogen 19 mg/dl (9-20); Calcium 8.7 mg/dl (8.4-10.2); Carbon Dioxide 26 mmol/L (22-30); Chloride 103 mmol/L (98-107); Estimated Creatinine Clearance 86 ml/min; Glucose 130 mg/dl (70-99); Potassium 4.7 mmol/L (3.5-5.1); Sodium 135 mmol/L (135-145); eGFR > 60.00
[2024-09-05 07:51] LABS: Glucose - Point of Care 134 mg/dl (70-99)
[2024-09-05] MEDS: GLUCOTROL 2.5 MG PO (08:08)
[2024-09-05] MEDS: MIRALAX 17 GRAMS PO (08:08)
[2024-09-05] MEDS: NOVOLOG FLEXPEN-MODERATE RESISTANCE SC ×2 (08:08→12:06)
[2024-09-05] MEDS: APRESOLINE 100 MG PO ×3 (08:09→21:41)
[2024-09-05] MEDS: ORETIC 25 MG PO (08:09)
[2024-09-05] MEDS: COLACE 100 MG PO (08:09)
[2024-09-05] MEDS: ZESTRIL 40 MG PO (08:09)
[2024-09-05] MEDS: HEPARIN 5000 UNITS SC ×3 (08:09→23:15)
[2024-09-05] MEDS: CRESTOR 20 MG PO (08:14)
[2024-09-05] MEDS: NORVASC 10 MG PO (08:14)
--- NOTE | 2024-09-05 08:17 | W.PN.HOSP.TC ---
Today's Communication/Plan
-
see plan
Assessment / Plan
Assessment / Plan
Gen: NAD, AAOx3.
Eyes: EOMI, PERRLA, no scleral icterus.
Neck: supple.
CV: RRR, +S1/S2, no m/r/g.
Resp: CTAB, no rales, wheezes, or rhonchi.
Abd: +BS, soft, NT, ND
Skin: No rashes.
Neuro: CN 2-12 intact, non-focal.
Psych: Normal mood and affect.
Worsening Gangrene Left Foot:
-s/p L open 3rd/4th partial ray amputations on 08/24/24
-heel WBAT to LLE for transfers only
-WCx with proteus. Path without osteomyelitis. Abx stopped with BKA resulting in source control.
-vascular following. s/p attempt for Limflow procedure 09/01/24; unable to perform to no real venous outflow. s/p L BKA 09/03/22.
-currently on Dilaudid EXPORT PACKER, transition to PO analgesics. [id number] PO Q12H, oxycodone 5mg PO Q4HPRN.
-next dressing change is today or tomorrow
-PT/OT
-discussed with Dr. De La Garza
DM2:
-a1c 10.4% in June 2024
-maintained on Ozempic as outpatient
-holding metformin during hospitalization
-SSI/accu-checks
-cont Lantus/Glipizide
-diabetes DIAPER MACHINE TENDER following
Other problems:
Essential Hypertension: Continue amlodipine/lisinopril/Hydralazine/HCTZ
Hyperlipidemia: cont Crestor
Hyponatremia, resolved
Obesity due to excess calories
RN updated
FULL/Heparin
Total time spent on today's encounter was 50 minutes which included time spent in counseling the patient/family regarding diagnosis and treatment plan as listed above, goals of care, and symptom management. Case was discussed with nursing staff,
specialists, and care coordinators/case management. All labs and imaging personally reviewed by me. Remainder the time spent in detailed review of previous records, lab data, imaging, and other medical provider documentation.
Anticipated Discharge: 24 - 48 hours
Subjective/Interval History
-
Date of Service: September 05, 2024
Denies chest pain, shortness breath, abdominal pain.
Objective Data
-
Labs:
Laboratory Results
09/05/24
06:14
WBC 10.9 H
Hgb 8.4 L
Hct 25.6 L
Plt Count 457 H
Sodium 135
Potassium 4.7
Chloride 103
Carbon Dioxide 26
BUN 19
Creatinine 1.2
Glucose 130 H
Calcium 8.7
Vital Signs:
Vital Signs
Temp Pulse Resp BP Pulse Ox
99.1 F 94 14 144/77 97
09/05/24 07:15 09/05/24 07:15 09/05/24 07:15 09/05/24 07:15 09/05/24 07:15
I&O
09/04/24 09/05/24 09/06/24
06:59 06:59 06:59
Intake Total 1480 / 1480 1060 / 1060
Output Total 2750 / 2750 2450 / 2450
Balance -1270 / -1270 -1390 / -1390
[2024-09-05] MEDS: OXYCONTIN (CONTROLLED RELEASE) 20 MG PO ×2 (10:03→19:38)
--- NOTE | 2024-09-05 10:07 | W.PN.VS ---
Today's Communication / Plan
-
See plan below for today 09/05/2024.
Assessment/Plan
-
Postoperative day #2 status post left BKA. Looks good overall. Dressing removed and rewrapped by me. Continue with daily clean dry dressing changes with Eulogio bandage. Okay for placement to rehab from my standpoint once medically okay. Continue
pain control. Discussed with Dr. Beasley, he will help manage.
-
Total Time Spent with Patient (in minutes): 10
Subjective Data
-
Date of Service: September 05, 2024
Patient without major complaints. When asked about pain he notes that it seems reasonably controlled. He continues to use his WILD LIFE MANAGER moderately though.
Objective Data
-
Vital Signs
Temp Pulse Resp BP Pulse Ox
99.1 F 94 16 144/77 98
09/05/24 07:15 09/05/24 08:09 09/05/24 08:00 09/05/24 08:09 09/05/24 08:00
Intake and Output
09/04/24 09/05/24 09/06/24
06:59 06:59 06:59
Intake Total 1480 / 1480 1060 / 1060
Output Total 2750 / 2750 2450 / 2450
Balance -1270 / -1270 -1390 / -1390
Intake:
Oral fluids 960 / 960 500 / 500
IV fluids (Total) 280 / 280 560 / 560
IV piggybacks 240 / 240
Output:
Urine, Bustamante 2049 / 2050 2450 / 2450
Urine, Voided 700 / 700
Lab Results
09/05/24 06:14
09/05/24 06:14
Calcium 8.7 mg/dl (8.4-10.2) 09/05/24 06:14
Total Bilirubin 0.5 mg/dl (0.2-1.3) 08/23/24 15:30
AST 19 U/L (17-59) 08/23/24 15:30
ALT 24 U/L (0-50) 08/23/24 15:30
Alkaline Phosphatase 155 U/L (38-126) H 08/23/24 15:30
Total Protein 6.8 g/dl (6.3-8.2) 08/23/24 15:30
Albumin 4.0 g/dl (3.5-5.0) 08/23/24 15:30
Physical Exam
-
Afebrile.
Awake and alert.
Left lower extremity BKA dressing removed. Staple line clean dry and intact. Skin flaps look good/warm. No hematoma noted. Rewrapped by me.
[2024-09-05 11:00] VITALS: BP 148/69
[2024-09-05 12:04] LABS: Glucose - Point of Care 135 mg/dl (70-99)
[2024-09-05 15:15] VITALS: BP 139/69
[2024-09-05 15:29] VITALS: BP 154/80; PULSE 96; O2SAT 95
[2024-09-05 16:51] LABS: Glucose - Point of Care 162 mg/dl (70-99)
[2024-09-05] MEDS: NOVOLOG FLEXPEN-MODERATE RESISTANCE 1 UNITS SC (16:52)
[2024-09-05] MEDS: COLACE PO ×2 (19:38→19:47)
[2024-09-05 21:40] LABS: Glucose - Point of Care 197 mg/dl (70-99)
[2024-09-05] MEDS: LANTUS 0.15 UNITS SC (21:42)
[2024-09-05 23:42] VITALS: BP 150/75
[2024-09-06 05:57] VITALS: BMI 34.4
[2024-09-06 07:07] LABS: Glucose - Point of Care 131 mg/dl (70-99)
[2024-09-06] MEDS: NOVOLOG FLEXPEN-MODERATE RESISTANCE SC ×3 (07:20→17:26)
[2024-09-06 07:31] VITALS: BP 167/75
[2024-09-06] MEDS: GLUCOTROL 2.5 MG PO (07:59)
[2024-09-06] MEDS: APRESOLINE 100 MG PO ×3 (08:01→20:59)
[2024-09-06] MEDS: CRESTOR 20 MG PO (08:01)
[2024-09-06] MEDS: OXYCONTIN (CONTROLLED RELEASE) 20 MG PO (08:01)
[2024-09-06] MEDS: NORVASC 10 MG PO (08:01)
[2024-09-06] MEDS: ORETIC 25 MG PO (08:02)
[2024-09-06] MEDS: HEPARIN 5000 UNITS SC ×3 (08:02→23:07)
[2024-09-06] MEDS: COLACE 100 MG PO ×2 (08:02→20:59)
[2024-09-06] MEDS: ZESTRIL 40 MG PO (08:02)
[2024-09-06] MEDS: MIRALAX PO ×2 (08:02→08:08)
--- NOTE | 2024-09-06 08:27 | W.PN.HOSP.TC ---
Today's Communication/Plan
-
Goal for d/c to rehab tomorrow.
Assessment / Plan
Assessment / Plan
Gen: NAD, AAOx3.
Eyes: EOMI, PERRLA, no scleral icterus.
Neck: supple.
CV: Remains RRR, +S1/S2, no m/r/g.
Resp: Remains CTAB, no rales, wheezes, or rhonchi.
Abd: Remains in +BS, soft, NT, ND
Skin: No rashes.
Neuro: CN 2-12 intact, non-focal.
Psych: Normal mood and affect.
Worsening Gangrene Left Foot:
-s/p L open 3rd/4th partial ray amputations on 08/24/24
-heel WBAT to LLE for transfers only
-WCx with proteus. Path without osteomyelitis. Abx stopped with BKA resulting in source control.
-vascular following. s/p attempt for Limflow procedure 09/01/24; unable to perform to no real venous outflow. s/p L BKA 09/03/22.
-was on Dilaudid PUMP AND STILL OPERATOR, then Oxycontin 20mg PO Q12H, oxycodone 5mg PO Q4HPRN. Stop Oxycontin today.
-dressing removed and rewrapped 09/05/24
-PT/OT
DM2:
-a1c 10.4% in June 2024
-maintained on Ozempic as outpatient
-holding metformin during hospitalization
-SSI/accu-checks
-cont Lantus/Glipizide
-diabetes COMPUTER DESIGNER following
Other problems:
Essential Hypertension: Continue amlodipine/lisinopril/Hydralazine/HCTZ
Hyperlipidemia: cont Crestor
Hyponatremia, resolved
Obesity due to excess calories
FULL/Heparin
Anticipated Discharge: Within 24 hours
Subjective/Interval History
-
Date of Service: September 06, 2024
No new complaints.
Objective Data
-
Vital Signs:
Vital Signs
Temp Pulse Resp BP Pulse Ox
98.9 F 91 16 167/75 95
09/06/24 07:31 09/06/24 07:31 09/06/24 07:31 09/06/24 07:31 09/06/24 07:31
I&O
09/05/24 09/06/24 09/07/24
06:59 06:59 06:59
Intake Total 1060 / 1060 1030 / 1030
Output Total 2450 / 2450 1450 / 1450
Balance -1390 / -1390 -420 / -420
--- NOTE | 2024-09-06 09:49 | CM ---
PT OT recommending acute rehab. PMR consult in on 09/04/24 but not seen yet by PMR. Referrals sent in allscripts to [facility].
[2024-09-06 12:32] LABS: Glucose - Point of Care 100 mg/dl (70-99)
[2024-09-06 12:35] VITALS: BP 124/83; PULSE 108
[2024-09-06 12:42] VITALS: BP 154/74; PULSE 108; O2SAT 98
[2024-09-06] MEDS: MYLICON 80 MG PO (12:59)
[2024-09-06 15:06] VITALS: BP 159/85
[2024-09-06 17:14] LABS: Glucose - Point of Care 151 mg/dl (70-99)
[2024-09-06 21:41] LABS: Glucose - Point of Care 139 mg/dl (70-99)
[2024-09-06 23:04] VITALS: BP 139/70
[2024-09-06] MEDS: LANTUS 0.15 UNITS SC (23:07)
--- NOTE | 2024-09-07 04:28 | PTCARENOTE ---
Pt ambulated w RW and standby assist to toilet to have BM. Pt tolerated ambulation and had no c/o pain. Care ongoing.
[2024-09-07 05:59] VITALS: BMI 33.6
[2024-09-07 07:40] VITALS: BP 156/75
--- NOTE | 2024-09-07 08:31 | W.PN.HOSP.TC ---
Addendum entered and electronically signed by Brady Beasley MD 09/07/24 11:04:
Total time spent on d/c = 37 min. This included today's physical exam, progress note, review of laboratory and diagnostic data, preparation of discharge documents and prescriptions, and discussions about the pt's hospital course and discharge plan
with the patient and other medical sales consultant involved in the patient's care.
Original Note:
Today's Communication/Plan
-
d/c
Assessment / Plan
Assessment / Plan
Gen: NAD, AAOx3.
Eyes: EOMI, PERRLA, no scleral icterus.
Neck: supple.
CV: Continues to remain RRR, +S1/S2, no m/r/g.
Resp: Continues to remainCTAB, no rales, wheezes, or rhonchi.
Abd: Continues to remain in +BS, soft, NT, ND
Skin: No rashes.
Neuro: CN 2-12 intact, non-focal.
Psych: Normal mood and affect.
Worsening Gangrene Left Foot:
-s/p L open 3rd/4th partial ray amputations on 08/24/24
-heel WBAT to LLE for transfers only
-WCx with proteus. Path without osteomyelitis. Abx stopped with BKA resulting in source control.
-vascular following. s/p attempt for Limflow procedure 09/01/24; unable to perform to no real venous outflow. s/p L BKA 09/03/22.
-was on Dilaudid VESSEL OPERATOR, then Oxycontin 20mg PO Q12H, oxycodone 5mg PO Q4HPRN, now off Oxycontin.
-dressing removed and rewrapped 09/05/24
-PT/OT
DM2:
-a1c 10.4% in June 2024
-maintained on Ozempic as outpatient
-holding metformin during hospitalization
-SSI/accu-checks
-cont Lantus/Glipizide
-diabetes MACHINE OPERATOR ASSISTANT following
Other problems:
Essential Hypertension: Continue amlodipine/lisinopril/Hydralazine/HCTZ. Start Clonidine 0.1mg BID.
Hyperlipidemia: cont Crestor
Hyponatremia, resolved
Obesity due to excess calories
FULL/Heparin
Medically cleared for discharge. Case management aware.
Anticipated Discharge: Today
Subjective/Interval History
-
Date of Service: September 07, 2024
No new complaints.
Objective Data
-
Vital Signs:
Vital Signs
Temp Pulse Resp BP Pulse Ox
98.6 F 93 18 156/75 94
09/07/24 07:40 09/07/24 07:40 09/07/24 07:40 09/07/24 07:40 09/07/24 07:40
I&O
09/06/24 09/07/24 09/08/24
06:59 06:59 06:59
Intake Total 1030 / 1030 2640 / 2640
Output Total 1450 / 1450 2500 / 2500
Balance -420 / -420 140 / 140
[2024-09-07 08:52] LABS: Glucose - Point of Care 122 mg/dl (70-99)
[2024-09-07] MEDS: NOVOLOG FLEXPEN-MODERATE RESISTANCE SC ×2 (08:56→11:52)
[2024-09-07] MEDS: APRESOLINE 100 MG PO (08:57)
[2024-09-07] MEDS: ORETIC 25 MG PO (08:58)
[2024-09-07] MEDS: COLACE 100 MG PO (08:58)
[2024-09-07] MEDS: ZESTRIL 40 MG PO (08:58)
[2024-09-07] MEDS: GLUCOTROL 2.5 MG PO (08:58)
[2024-09-07] MEDS: CRESTOR 20 MG PO (08:58)
[2024-09-07] MEDS: NORVASC 10 MG PO (08:59)
[2024-09-07] MEDS: HEPARIN 5000 UNITS SC (08:59)
[2024-09-07] MEDS: CATAPRES 0.1 MG PO (09:00)
[2024-09-07] MEDS: MIRALAX PO (09:01)
--- NOTE | 2024-09-07 10:41 | CM ---
Addendum entered by Samantha Coker RN 09/07/24 10:53:
[facility] is able to accept today.
[facility] Authorization
4 days
09/07-09/10
[id number]
Original Note:
[facility] called [facility] and is pending Acute Rehab Auth.
[2024-09-07] MEDS: ROXICODONE 5 MG PO (10:42)
--- NOTE | 2024-09-07 10:56 | CM ---
[facility]
Report
[phone]
--- NOTE | 2024-09-07 11:09 | PN.DE.MGMTRT ---
Insulin Management
- -
09/07/2024: Diabetes Management Follow up
Patient admitted 08/23 with worsening chronic left foot nonhealing wound due to Diabetic foot infection with possible gangrene. PMH: HTN, HLD, NIDDM, PAD, Peripheral Neuropathy, and Class II Obesity. Pt was recently hospitalization for gangrene of
left 3rd and 4th toes due to PAD complicated by diabetic neuropathy. He was supposed to follow-up with podiatry or vascular surgery but he never did as instructed.
Of note patient is known to our service as we were consulted for his last admission (06/28/24- 07/03/24), for uncontrolled diabetes.
Last A1C was 10.4% on 06/28/24. Cr 1.0, eGFR >60, was taking Metformin 750mg daily and Ozempic Q Friday. Was provided with a Contour Next monitor during his last hospital visit.
08/24 s/p left open 3rd/4th partial ray amputations, 09/03 L BKA, doing well overall.
Patient is awake alert and oriented, for possible transfer to acute rehab today. Current diabetes regimen glipizide 2.5 mg daily with hs lantus 15 units. Glucose range 100 to 151. Will make no change to current regimen Lantus 15 units @ HS,
continue moderate corrective insulin AC with glipizide 2.5 mg daily.
Patient states he is comfortable self injecting insulin; provided printed instructions on step by step prep and injection technique. Patient states he is going to take this more seriously; he has reached out to his primary doctor to obtain a CGM.
Discussed with nurse.
Will cont to follow.
Pt was seen by the Diabetes RN Educator for Insulin instructions.
08/25 Had a lengthy and detailed discussion about current A1C, implications of uncontrolled diabetes, short and long-term complications including poor wound healing. Discussed dietary choices, especially carbohydrates and lean proteins, limiting
ordering out and making all meals at home. Emphasized importance of appropriate follow up with all specialists for ongoing care and encouraged consistent glucose monitoring at home.
Diabetes History
- -
Type of Diabetes: 2 requiring insulin
Pre-Admission Diabetes Regimen
Insulin Pump Settings
IP Diabetes Regimen
09/06/24 09/06/24 09/06/24
12:31 17:12 21:39
POC Glucose 100 H 151 H 139 H
09/07/24
08:51
POC Glucose 122 H
Meal type: Dinner
Meal type: Breakfast
Amount consumed: 0
Amount consumed: 0
Amount consumed: 100%
Patient Education
--- NOTE | 2024-09-07 11:11 | W.DCSUMMARY ---
Discharge Summary
Discharge Data
Date of Admission: 08/23/24
Date of Discharge: 09/07/24
-
Pending Results: No
Hospital Course
Primary diagnoses:
Worsening Gangrene Left Foot s/p L open 3rd/4th partial ray amputations on 08/24/24, s/p L BKA 09/03/22
Secondary diagnoses:
Type 2 diabetes mellitus
Essential Hypertension
Hyperlipidemia
Hyponatremia
Obesity due to excess calories
Consultants:
Vascular surgery
Infectious disease
Podiatry
Imaging:
L foot Xray: Soft tissue swelling. Findings suspicious for subcutaneous emphysema involving the third and fourth digits, as described. However, no radiographic evidence to suggest osteomyelitis.
Hospital course: 59 y/o M who presented with a chief complaint of worsening left foot pain as outlined in the H&P done on admission. Patient had a left foot x-ray as above. He was placed on broad-spectrum antibiotics. Patient underwent L open
3rd/4th partial ray amputations on 08/24/24. Wound culture grew Proteus. Pathology was without osteomyelitis. Vascular surgery attempted Limflow procedure 09/01/24; unable to perform due to no real venous outflow. He subsequently underwent L BKA
on 09/03/22. Regarding pain control the patient was on Dilaudid RIM TECHNICIAN, then Oxycontin 20mg PO Q12H, oxycodone 5mg PO Q4HPRN, and then Oxycontin was stopped. He was discharged in medically stable condition.
Discharge Plan
-
Patient Disposition: Acute Rehab Facility
Discharge Diagnosis/Procedures: Worsening Gangrene Left Foot s/p L open 3rd/4th partial ray amputations on 08/24/24, s/p L BKA 09/03/22
Condition: Good
Diet: Diabetic, Carb Controlled
Activity: No strenuous activity
Driving Restrictions: Not until seen by your Dr
Bathing Restrictions: OK to Shower
Stand Alone Forms: Vascular Surg Discharge Instr
Referrals:
[facility]iting [facility] [Outside]
NONE,* [Family Provider] -
Cindy Griffith CRNP [Specified Professional Personl] - 09/17/24 1:00 pm (Vascular surgery office follow up)
Prescriptions:
New
clonidine HCl 0.1 mg Tablet
0.1 mg PO BID Qty: 0 0RF
docusate sodium 100 mg Capsule
100 mg PO BID Qty: 0 0RF
hydralazine 50 mg Tablet
100 mg PO TID Qty: 0 0RF
polyethylene glycol 3350 17 gram Powder In Packet
17 g PO DAILY Qty: 0 0RF
glipizide 5 mg Tablet
2.5 mg PO DAILY Qty: 0 0RF
Continued
hydrochlorothiazide 25 mg Tablet
25 mg PO DAILY Qty: 30 0RF
therapeutic multivitamin Tablet
1 tab PO DAILY Qty: 0 0RF
lisinopril 40 mg Tablet
40 mg PO DAILY Qty: 0 0RF
rosuvastatin 20 mg Tablet
20 mg PO DAILY Qty: 0 0RF
amlodipine 10 mg tablet
10 mg PO DAILY Qty: 30 0RF
Ozempic 0.25 mg or 0.5 mg (2 mg/3 mL) Pen Injector
0.25 mg SC ESTRADA
Rx Instructions:
for 4 weeks
Discontinued
hydralazine 50 mg Tablet
50 mg PO TID Qty: 90 0RF
ibuprofen [Advil] 200 mg Tablet
200 mg PO Q6HPRN PRN (Reason: mild pain)
metformin 750 mg Tablet Extended Release 24 Hr
750 mg PO DAILY
Discharge Orders:
Discharge Patient (As Directed); Ordered 09/07/24
Ordered By: Brady Beasley
Care Plan Goals
Care Plan Goals:
Problem: Readiness for enhanced knowledge related to diagnosis and treatment plan
Goal: Understand your diagnosis and treatment plan needs, including medications if applicable.
Instructions: Know your diagnosis, underlying causes and treatment plan options, including medications if applicable. Consult with your health care team to learn about your diagnosis and treatment plan, including medications if applicable.
Discharge Date and Time
Print Language: SPANISH
[2024-09-07 11:15] VITALS: BP 121/70; BP 149/77; PULSE 89; O2SAT 96
[2024-09-07 11:51] LABS: Glucose - Point of Care 130 mg/dl (70-99)
--- NOTE | 2024-09-07 12:06 | PTCARENOTE ---
KIRT Singh & Dr. Beasley made aware that [facility] Visiting Nurses are listed as referral on Patient Discharge Instruction sheet, although confirmed patient is being discharged to [facility] @; acknowledged notification.
[2024-09-07 13:00] VITALS: BP 133/67
--- NOTE | 2024-09-07 13:55 | PTCARENOTE ---
Addendum entered by Maranda Rosenbaum RN 09/07/24 13:56:
to [facility] @.
Original Note:
Transport volunteer arrived, patient transported in wheelchair along with his belongings and family member.
== END 2024-09-07 13:55 | DRG 239 ==
LOC: 2 SOUTH 20:15
PROVIDERS: Emergency Medicine; Internal Medicine; Nurse Practitioner; Nurse Practitioner Acute Care; Physician Assistant Medical; Student in an Organized Health Care Education/Training Program; Surgery Vascular Surgery; ADMITTING PHYSICIAN Internal Medicine; ATTENDING PHYSICIAN Internal Medicine; CONSULT PHYSICIAN Internal Medicine Infectious Disease; CONSULT PHYSICIAN Student in an Organized Health Care Education/Training Program; EMERGENCY PHYSICIAN Student in an Organized Health Care Education/Training Program; OTHER PHYSICIAN Surgery Vascular Surgery
PROC: 0Y6N0ZC Detachment at Left Foot, Partial 3rd Ray, Open Approach (ICD-10-PCS; 2024-08-24)
PROC: 0Y6N0ZD Detachment at Left Foot, Partial 4th Ray, Open Approach (ICD-10-PCS; 2024-08-24)
PROC: B51C1ZZ Fluoroscopy of Left Lower Extremity Veins using Low Osmolar Contrast (ICD-10-PCS; 2024-09-01)
PROC: 0Y6J0Z1 Detachment at Left Lower Leg, High, Open Approach (ICD-10-PCS; 2024-09-03)
DX: E11.52 Type 2 diabetes mellitus with diabetic peripheral angiopathy with gangrene (principal); A48.0 Gas gangrene; I70.262 Atherosclerosis of native arteries of extremities with gangrene, left leg; E87.1 Hypo-osmolality and hyponatremia; E11.40 Type 2 diabetes mellitus with diabetic neuropathy, unspecified; E78.00 Pure hypercholesterolemia, unspecified; I10 Essential (primary) hypertension; E66.813 Obesity, class 3; E11.65 Type 2 diabetes mellitus with hyperglycemia; I16.0 Hypertensive urgency; L08.89 Other specified local infections of the skin and subcutaneous tissue; B96.4 Proteus (mirabilis) (morganii) as the cause of diseases classified elsewhere; Z53.8 Procedure and treatment not carried out for other reasons; F17.290 Nicotine dependence, other tobacco product, uncomplicated; Z68.35 Body mass index [BMI] 35.0-35.9, adult; Z79.84 Long term (current) use of oral hypoglycemic drugs
CPT/HCPCS: 88305; 88307; 88311; 27880; 36012; 73630; 75820; 80048; 80053; 80202; 82962; 85025; 85027; 85610; 85730; 86850; 86900; 86901; 87070; 87075; 87077; 87186; 87205; 97110; 97116; 97163; 97164; 97167; 97530; 97535; C1769; C1894

== ENCOUNTER 2024-10-21 13:50 | Inpatient (IN) | payer BC, SELFPAY ==
[2024-10-21] VITALS (15 sets, daily range): BP systolic 140–187; BP diastolic 72–99; BMI 34.2
[2024-10-21 08:50] LABS: Hematocrit 31.8 % (39.0-52.0); Hemoglobin 10.5 g/dL (13.0-18.0); Mean Corp Hgb Conc. 33.0 g/dL (33.0-37.0); Mean Corpuscular Volume 89.1 fL (80.0-94.0); Platelet Count 383 10^3/uL (130-400); Red Cell Dist. Width 13.7 % (11.5-14.5)
[2024-10-21 08:55] LABS: INR 1.02; PT 13.9 Sec (11.4-14.6)
[2024-10-21 08:56] LABS: APTT 32.3 Sec (23.4-35.0)
[2024-10-21 09:15] LABS: Blood Urea Nitrogen 18 mg/dl (9-20); Calcium 10.2 mg/dl (8.4-10.2); Carbon Dioxide 23 mmol/L (22-30); Chloride 106 mmol/L (98-107); Estimated Creatinine Clearance 113 ml/min; Glucose 153 mg/dl (70-99); Potassium 4.1 mmol/L (3.5-5.1); Sodium 139 mmol/L (135-145); eGFR > 60.00
[2024-10-21 09:18] LABS: Glucose - Point of Care 145 mg/dl (70-99)
[2024-10-21] MEDS: NSS 500 IV (09:33)
--- NOTE | 2024-10-21 10:52 | W.PN.UPDATE ---
Update Note
Progress Note Update
I discussed with the patient and his son and mother who are at the bedside procedure of right lower extremity arteriogram. I discussed potential scenarios to include: Successful endovascular revascularization, need for staged surgical bypass,
nonrevascularizable distal obliterative disease with risk of amputation. Discussed risks of procedure including but not limited to bleeding, arterial injury/worsened or acute limb ischemia, renal failure. He understands all wishes to proceed.
--- NOTE | 2024-10-21 12:37 | W.SUR.POST ---
Surgical Immediate Post Op
Note
Pre Op Diagnosis: PAD
Post Op Diagnosis: PAD
Procedure Performed: RLE arteriogram, balloon angioplasty to AT
Primary Surgeon: Frederic
Anesthesia: Local and sedation
Estimated Blood Loss: <2cc
Fluids: See anesthesia flow sheet
Drains/Shunts: none
Specimens/Cultures: None
Doppler/Duplex/Angio (Y/N): Y
Complications: none
Operative Findings: doppler+
[2024-10-21 13:18] LABS: Glucose - Point of Care 143 mg/dl (70-99)
--- NOTE | 2024-10-21 15:39 | PTCARENOTE ---
Patient admitted from PACU post right lower extremity arteriogram and angioplasty.The patient denies any pain.Vital signs are stable.The left groin site is intact with no hematoma or drainage present.The patient is in his bed with the call walker in
reach.
--- NOTE | 2024-10-21 16:28 | W.PN.UPDATE ---
Update Note
Progress Note Update
Discussed with patient findings on angiography, and plan for admission. For toe amputation (concern for impending infection or possible early infection), and follow-up vascular imaging. Will cover with antibiotics for toe infection.
--- NOTE | 2024-10-21 16:43 | OR.RPT ---
Operative Report
Operative Report
PROCEDURE DATE: 10/21/2024
Preoperative diagnosis: Chronic limb threatening ischemia right lower extremity.
Postoperative diagnosis: Same
Procedure:
1. Duplex assisted cannulation of left common femoral artery.
2. Aortogram and pelvic angiogram.
3. Right lower extremity arteriogram with third order vessel catheterization of right dorsalis pedis artery via left common femoral artery puncture.
4. Balloon angioplasty of right proximal anterior tibial artery severe focal stenosis with 3 mm angioplasty balloon.
5. Balloon angioplasty of the distal BRADLEY artery with 1.5 mm angioplasty balloon.
6. Left femoral angiogram.
7. Supervision and interpretation.
Surgeon: Frederic
Deck Lid Fitter: None
Complications: None
Anesthesia: Local, sedation
Fluoroscopy:
20.2 min
95 mGy
23.24 gy.cm2
Indications for procedure:
Chronic limb threatening ischemia right lower extremity. History of recent left lower extremity amputation due to nonrevascularizable chronic distal disease. Therefore brought for angiography for the right lower extremity.
Risk/benefits/alternatives also discussed. Patient understood all wished to proceed.
Description of procedure:
Patient was identified, brought to the operating room. Placed on the table in the supine position. After the adequate administration of anesthesia, the patient was prepped and draped in the standard surgical fashion. A standard preoperative
timeout was undertaken and everybody was in agreement with the plan.
The left common femoral artery was accessed with a micropuncture kit under direct duplex ultrasound guidance. A 5 Fijian sheath was then advanced over a 0.035 inch wire, and a stafford's hook catheter was advanced into the abdominal aorta.
Aortogram and pelvic angiogram was obtained. Findings as follows:
Infrarenal aorta: Patent distal infrarenal aorta with no significant stenosis.
Right common iliac artery: Patent with no significant stenosis.
Right external iliac artery: Patent with no significant stenosis.
Left common iliac artery: Patent with no significant stenosis.
Left external iliac artery: Patent with no significant stenosis.
Using a floppy angled hydrophilic wire, the right common femoral artery was cannulated and the catheter was advanced. Right lower extremity arteriogram was obtained. Findings as follows:
Common femoral artery: Patent with no significant stenosis.
Profunda femoris artery: Patent with no significant stenosis.
Superficial femoral artery: Patent with eccentric wall calcification, but no significant stenosis.
Popliteal artery: Patent with mild [id number] popliteal artery stenosis, approximately 20-30%.
Anterior tibial artery: High origin of the anterior tibial artery behind the knee with severe focal stenosis (string-like) in the proximal third. Sluggish flow beyond here but patent all the way down to the ankle and then to the foot as the
dorsalis pedis artery. However the distal anterior tibial artery and proximal dorsalis pedis artery with what appeared to be significant chronic noncalcified plaque stenosis. There was a small focal area on the dorsalis pedis that appeared to be
severely stenotic or occluded. The entirety of the inframalleolar artery and branches were all diminutive in size, consistent with chronic obliterative distal disease.
Tibial peroneal trunk: Patent with no significant stenosis.
Peroneal artery: Patent with no significant stenosis but slightly smaller in stature more distally. Gave rise to a single collateral (the second of the Y collaterals was barely patent, severely diminutive).
Posterior tibial artery: Patent, moderately diminutive throughout its course. The distal posterior tibial artery at the ankle and onto the foot was severely diseased and diminutive with areas of focal occlusions. One of the plantar arteries was
patent beyond this region, but also was diminutive in stature suggestive of chronic obliterative distal disease. There was some filling of the collateral branches through the dorsalis pedis and posterior tibial arteries and even filling to the
toes, but again these were very small diminutive wispy arteries.
At this point I selectively cannulated the superficial femoral artery and then exchanged for a Storq wire and an up and over 5 Fijian, 70 cm sheath. The patient was given 8000 units of intravenous heparin. Next under roadmap assisted guidance I
selectively gained wire access into the anterior tibial artery with a flopping of hydrophilic wire and then was able to traverse the proximal area of severe stenosis and then passed my CXI catheter. I now exchanged for a 0.014 inch wire. I then
performed balloon angioplasty of the severe proximal stenosis with a 3 mm angioplasty balloon. Completion angiogram demonstrated excellent result with complete resolution of the stenosis and now much more brisk flow through the anterior tibial
artery system. In fact, the anterior tibial artery flow pace rivals or beat out the other tibial arteries which are significantly improved compared to prior. However, given the distal disease noted on the dorsalis pedis with the focal area of
occlusion in the distal anterior tibial artery stenosis, I thought it may be worth attempt at angioplasty. Therefore I used a 0.014 inch steerable wire and a 2.6 Fijian CXI catheter. I was able to gain wire access beyond the area of stenosis and
the focal occlusion of the dorsalis pedis onto the distal dorsalis pedis/branch artery at the distal foot. However I could not advance the 2 mm angioplasty balloon. I then exchanged for a more stiff 0.14 inch wire (had to lose wire access because
I could not even pass the 2.6 Fijian CXI catheter through that segment). And then regained wire access with a stiffer 0.014 inch wire. Now I tried again to pass a 1.5 mm balloon but I could not pass it beyond the distal anterior tibial artery. I
therefore did angioplasty that segment and then try to advance the balloon after that. But was unable to. Completion angiogram demonstrated preserved distal flow through the anterior tibial and dorsalis pedis unchanged. Still brisk flow in the
anterior tibial at this point. At this point I felt that there is nothing else I could render here in the anterior tibial artery. I therefore then withdrew my wires and catheters back into the below-knee popliteal artery and then selectively
cannulated the posterior tibial artery with a steerable 0.14 inch wire. I advanced a 2.6 Fijian CXI. I then was able to wire all the way down the posterior tibial artery to the distal posterior tibial artery around the vicinity the ankle but these
areas of stenoses were so severe I could not get a wire into the plantar artery. In addition I could not pass even the 2.6 Fijian CXI catheter. I felt therefore that this was not treatable at this point. Therefore my wires and catheters were
withdrawn and I exchanged for a Storq wire again into the SFA. I then withdrew the sheath to the left external iliac artery over the Storq wire. Left femoral angiogram demonstrated good puncture in the left common femoral artery with patent to the
left common femoral artery and femoral bifurcation. At this point the wires and catheters were all withdrawn. Sheath was withdrawn and manual pressure was applied to the puncture site. Protamine was given to reverse the heparin.
The patient tolerated procedure well. Upon completion he had a good dopplerable DP signal, and 1+ palpable proximal DP pulse.
--- NOTE | 2024-10-21 17:00 | PHA.VAN.IN ---
Assessment
- Assessment
Renal Function: Other (BASELINE SCR = 1.2)
Concomitant Antimicrobials: ZOSYN
- Previous Dosing Experience
Previous Regimen: DOSING BY RANDOM LEVELS
Date of Regimen: 08/27/24
Provided Trough of: UNKNOWN
Provided AUC of: UNKNOWN
Patient's SCR is: Decreased compared to previous dosing experience (08/27/24 SCR = 1.1)
Patient's weight is: Elevated compared to previous dosing experience (08/27/24 WT = 109 KG)
Plan
- Plan
Initial / Loading Dose: 2GM
Maintenance Regimen: DOSING BY RANDOM LEVELS
Monitoring: RANDOM VANCOMYCIN LEVEL 10/22/24
Pharmacokinetics Vancomycin I
- -
Patient Age: 59
Patient Sex: Male
Vancomycin Day #: 1
Indication: Skin And Soft Tissue (TOE INFECTION)
Requesting Provider: FABIÁN
Height / Weight:
Height 5 ft 11 in
Actual Weight 111.13 kg
Pertinent Past Medical History: DM; BMI = 34
- Vital Signs / Lab Results
Temp Pulse Resp BP Pulse Ox
98.6 F 93 18 140/99 96
10/21/24 15:30 10/21/24 15:30 10/21/24 15:30 10/21/24 15:30 10/21/24 15:30
Lab Results - Hematology
10/21/24
08:25
WBC 10.6
Lab Results - Chemistry
10/21/24
08:25
BUN 18
Creatinine 0.9
Estimated Creat Clear 113
[2024-10-21 17:17] LABS: Glucose - Point of Care 160 mg/dl (70-99)
[2024-10-21] MEDS: LOW STRENGTH ASPIRIN 81 MG PO (17:37)
[2024-10-21] MEDS: HEPARIN 5000 UNITS SC (17:38)
[2024-10-21] MEDS: LANTUS 0.05 UNITS SC (17:38)
[2024-10-21] MEDS: ZOSYN 50 IV (17:39)
[2024-10-21] MEDS: VANCOCIN 540 MG IV (17:39)
[2024-10-21] MEDS: APRESOLINE 50 MG PO ×2 (17:42→22:38)
[2024-10-21] MEDS: NSS 1000 IV (17:43)
[2024-10-21] MEDS: NOVOLOG FLEXPEN-MODERATE RESISTANCE 1 UNITS SC (18:00)
[2024-10-21 21:30] LABS: Glucose - Point of Care 251 mg/dl (70-99)
[2024-10-22] VITALS (12 sets, daily range): BP systolic 14–161; BP diastolic 64–84
[2024-10-22] MEDS: HEPARIN 5000 UNITS SC ×2 (00:12→23:01)
[2024-10-22] MEDS: ZOSYN 50 IV ×5 (00:12→23:54)
[2024-10-22 07:34] LABS: Glucose - Point of Care 145 mg/dl (70-99)
--- NOTE | 2024-10-22 07:49 | W.PN.VS ---
Today's Communication / Plan
-
See plan below for today 10/22/2024.
Assessment/Plan
-
Postoperative day #1 status post right lower extremity arteriogram with angioplasty of the right anterior tibial artery.
-Dr. Heath to see today - likely toe amputation today. Discussed plan with patient. In meanwhile we will obtain repeat TBI study today as well as LimFlow ultrasounds (in the case toe amputation doesn't heal). He understands there is no
guarantee of healing, but hopefully with enhanced perfusion after angioplasty he can heal.
-
Total Time Spent with Patient (in minutes): 10
Subjective Data
-
Date of Service: October 22, 2024
Patient without any complaints this morning.
Objective Data
-
Vital Signs
Temp Pulse Resp BP Pulse Ox
99.0 F 84 16 156/84 97
10/22/24 03:00 10/22/24 03:00 10/22/24 03:00 10/22/24 03:00 10/22/24 03:00
Intake and Output
10/21/24 10/22/24 10/23/24
06:59 06:59 06:59
Intake Total 1355 / 1355
Output Total 850 / 850
Balance 505 / 505
Intake:
Oral fluids 480 / 480
IV fluids (Total) 285 / 285
norm saline 125 / 125
IV piggybacks 590 / 590
Output:
Urine, Voided 850 / 850
Calcium 10.2 mg/dl (8.4-10.2) 10/21/24 08:25
Physical Exam
-
Afebrile.
Awake and alert.
Abdomen soft, nondistended, nontender.
Left groin puncture site flat, no hematoma.
Right foot is warm. Weak 1+ DP pulse palpable still. Chronically ischemic first toe and changes stable.
[2024-10-22 08:30] LABS: Hematocrit 28.6 % (39.0-52.0); Hemoglobin 9.4 g/dL (13.0-18.0); Mean Corp Hgb Conc. 32.9 g/dL (33.0-37.0); Mean Corpuscular Volume 89.4 fL (80.0-94.0); Platelet Count 340 10^3/uL (130-400); Red Cell Dist. Width 13.6 % (11.5-14.5)
--- NOTE | 2024-10-22 08:36 | W.CS.POD ---
Consult Summary - Podiatry
-
59 yo diabetic male with recent H/o LT lower leg amputation , has been admitted by vascular surgery for Rt big toe gangrenous changes and for obtaining angiogram, Patient had Rt L/E angiogram with Rt BRADLEY ballooning yesterday by Dr. De La Garza, he has
diabetic small vessel disease , though improved flow to Rt lower leg .
Patient currently no acute distress, no fever, chills.
Reviewed PMH, meds and allergies.
Exam : Rt foot palpable DP pulse
Rt hallux dry, necrotic wound, with foul odor noted, pale skin around hallux.
No edema, no signs of any cellultis changes to Rt foot
A/p : Rt hallux gangrene
Diabetic small vessel disease
Recent LT lower leg amputation 09/2024
Plan ; pt seen at bedside, Discussed about poor blood flow and gangrenous changes to the big toe and possibly need big toe amputation. HE understands the situation and agrees to proceed with surgical plan
Discussed all risks of non healing, reinfection, more proximal amputations, loosing the limb or life
No guarantees given to save the limb
Scheduled for 4pm today for Rt hallux amputation,
Patient is NPO for the procedure
D/W Dr. De La Garza, who will be clearing him for surgery
Podiatry will follow
[2024-10-22] MEDS: NOVOLOG FLEXPEN-MODERATE RESISTANCE SC ×3 (09:05→17:22)
[2024-10-22] MEDS: APRESOLINE 50 MG PO ×2 (09:06→21:31)
[2024-10-22] MEDS: ORETIC 25 MG PO (09:06)
[2024-10-22] MEDS: HEPARIN SC ×2 (09:07→18:44)
[2024-10-22] MEDS: NORVASC 5 MG PO (09:07)
[2024-10-22] MEDS: ZESTRIL 40 MG PO (09:07)
[2024-10-22 09:09] LABS: Blood Urea Nitrogen 19 mg/dl (9-20); Calcium 8.9 mg/dl (8.4-10.2); Carbon Dioxide 22 mmol/L (22-30); Chloride 109 mmol/L (98-107); Estimated Creatinine Clearance 102 ml/min; Glucose 134 mg/dl (70-99); Potassium 4.3 mmol/L (3.5-5.1); Sodium 137 mmol/L (135-145); eGFR > 60.00
[2024-10-22] MEDS: FARXIGA PO (09:09)
[2024-10-22] MEDS: CATAPRES 0.1 MG PO (09:09)
[2024-10-22] MEDS: CRESTOR 20 MG PO (09:09)
[2024-10-22 09:36] LABS: Glycohemoglobin (HgbA1c) 7.9 % (4.0-5.6)
--- NOTE | 2024-10-22 10:07 | PHA.VAN.FU ---
Vancomycin Assessment / Plan
- Assessment
Renal Function: Stable
In the past 24 hrs, patient has been: Afebrile
Concomitant Antimicrobials: Pip/Tazo
- Assessment - Therapeutic Drug Monitoring
Random Level: 10/22 @ 8:18 was 9.6 ~14 hrs post dose
- Dosing Plan
Adjust Regimen to: 1250mg Q12H
New Regimen Predicts: AUC (449), Peak (28.6), Trough (11.2)
Dosing Comments: t1/2 7.8
- Follow Up
Pharmacy will continue to follow.
Vancomycin Follow UP
- -
Patient Age: 59
Patient Sex: Male
Vancomycin Day #: 2
Indication: Skin And Soft Tissue (TOE INFECTION)
Requesting Provider: FABIÁN
Height / Weight:
Height 5 ft 11 in
Actual Weight 111.13 kg
Pertinent Past Medical History: DM; BMI = 34
- Vital Signs / Lab Results
Temp Pulse Resp BP Pulse Ox
97.9 F 65 18 161/83 98
10/22/24 07:45 10/22/24 07:45 10/22/24 07:45 10/22/24 07:45 10/22/24 07:45
Lab Results - Hematology
10/21/24 10/22/24
08:25 08:18
WBC 10.6 9.1
Lab Results - Chemistry
10/21/24 10/22/24
08:25 08:18
BUN 18 19
Creatinine 0.9 1.0
Estimated Creat Clear 113 102
Therapeutic Drug Monitoring
Random Vancomycin 9.6 ug/ml 10/22/24 08:18
[2024-10-22 12:16] LABS: Glucose - Point of Care 130 mg/dl (70-99)
--- NOTE | 2024-10-22 12:45 | WOUNDNOTE ---
R GREAT TOE PLANTAR
--- NOTE | 2024-10-22 12:45 | WOUNDNOTE ---
Mik GLEZ WITH PHOTO FLASH
--- NOTE | 2024-10-22 12:47 | WOUNDNOTE ---
RAFFAELE RN note: Patient admitted for arteriogram and balloon angioplasty done by Dr. De La Garza.
See H&P for complete history.
PMH: Obesity, IDDM,HTN,ORIF pelvic fracture, L BKA 09/04/24.
Wound Location and type/assessment: Patient admitted with: Necrotic R great toe-Dr. Heath on consult, for amputation later today. R heel is intact, dry flaky skin on edges. L BKA stump with area of dehiscence anterior medially, with patch of
brown and landeros eschar, scant odor. Lateral edge of suture line with small partial thickness opening scant landeros, remainder has steri strips. Very little complaint of pain. Patient able to turn self to side, sacrum intact. Pillow in use under calve and
stump.
Appetite: Good.
Pressure redistribution devices in place: On Accumax, turns self.
Plan: Heel foam applied to R heel to protect, pillow under leg. Adaptic, dry ABD pad applied to L BKA with Eulogio wrap. Will order Santyl to start tomorrow. Nurse Marielle at bedside and made aware. Will confirm the above with vascular and follow along
peripherally, assist as needed. Updated care plan.
Note to case management of equipment requested for discharge: TBD
Recommend follow up with [facility] and Vascular team.
--- NOTE | 2024-10-22 12:57 | CM ---
CM following re: discharge planning.
Reviewed pt's chart, met with pt.
Pt is a 59 year old male, admitted with primary dx of POD#1 status post right lower extremity arteriogram with angioplasty of the right anterior tibial artery.
Pt reports he lives with mother and a son in an apartment, 2nd floor with elevator, no steps. Pt reports he uses a walker, has a wheelchair. Pt expressed his desire to return back home at discharge with family support and pt stated his mother will
transport home.
PT and OT will evaluate the pt to determine a level of care at discharge.
PCP: Ramon Dickson
Pharmacy: [facility]
D/C plan: home with anticipated no needs vs VN. Mother to transport at discharge.
CM will follow with discharge plan updates as hospitalization progresses
[2024-10-22] MEDS: VANCOCIN 275 MG IV ×2 (12:59→21:31)
[2024-10-22] MEDS: APRESOLINE PO (16:00)
[2024-10-22 17:23] LABS: Glucose - Point of Care 102 mg/dl (70-99)
--- NOTE | 2024-10-22 17:27 | W.SUR.POST ---
Surgical Immediate Post Op
Note
Pre Op Diagnosis: Right hallux gangrene
Post Op Diagnosis: Same as above
Procedure Performed: Partial Right hallux amputation with primary closure
Primary Surgeon: Dr. Heath DP
Secondary Surgeons: None
Anesthesia: MAC with local block
Estimated Blood Loss: 2cc's
Fluids: none
Drains/Shunts: none
Specimens/Cultures: Aerobic and anaerobic
Doppler/Duplex/Angio (Y/N): N
Complications: None
Operative Findings: There was no deep tissue purulence or necrosis noted, scant blood flow from surgical flaps,
patient stable in PACU with stable vital signs and intact vascular status to RT foot
--- NOTE | 2024-10-22 18:20 | PTCARENOTE ---
Pt received from the PACU via bed. Transport was w/o incident. VSS, Pt is afebrile. Pt's right foot with guaze dressing w/ Kerlix C/D/I, no drainage noted at this time. Pt's posterior Tibial pulses postive w/ doppler. right DP pulse difficult to
palpate w/ dressing and edema to foot. Pt able to wiggle toes of right foot w/o difficulty. Pt instructed on plan of care. Pt verbalized understanding of instructions. Call walker is within reach.
[2024-10-22] MEDS: LANTUS 0.05 UNITS SC (18:49)
[2024-10-22] MEDS: LOW STRENGTH ASPIRIN 81 MG PO (18:49)
[2024-10-22 21:35] LABS: Glucose - Point of Care 190 mg/dl (70-99)
[2024-10-23 03:11] VITALS: BP 128/73
[2024-10-23] MEDS: ZOSYN 50 IV ×4 (05:03→23:07)
[2024-10-23] MEDS: ROXICODONE 5 MG PO ×3 (05:08→19:50)
[2024-10-23] MEDS: VANCOCIN 275 MG IV ×2 (05:40→17:15)
[2024-10-23 06:49] LABS: ALT (SGPT) 15 U/L (0-50); AST (SGOT) 14 U/L (17-59); Albumin 3.3 g/dl (3.5-5.0); Alkaline Phosphatase 76 U/L (38-126); Blood Urea Nitrogen 17 mg/dl (9-20); Calcium 8.9 mg/dl (8.4-10.2); Carbon Dioxide 23 mmol/L (22-30); Chloride 108 mmol/L (98-107); Estimated Creatinine Clearance 93 ml/min; Glucose 111 mg/dl (70-99); Potassium 4.0 mmol/L (3.5-5.1); Sodium 138 mmol/L (135-145); Total Protein 6.0 g/dl (6.3-8.2); eGFR > 60.00
[2024-10-23 07:05] VITALS: BP 124/76
[2024-10-23 08:16] LABS: Glucose - Point of Care 104 mg/dl (70-99)
[2024-10-23] MEDS: NOVOLOG FLEXPEN-MODERATE RESISTANCE SC ×3 (08:19→17:06)
[2024-10-23] MEDS: LOW STRENGTH ASPIRIN 81 MG PO (08:20)
[2024-10-23] MEDS: ZESTRIL 40 MG PO (08:20)
[2024-10-23] MEDS: NORVASC 5 MG PO (08:20)
[2024-10-23] MEDS: ORETIC 25 MG PO (08:20)
[2024-10-23] MEDS: CRESTOR 20 MG PO (08:21)
[2024-10-23] MEDS: CATAPRES 0.1 MG PO (08:21)
[2024-10-23] MEDS: HEPARIN 5000 UNITS SC ×3 (08:21→23:05)
[2024-10-23] MEDS: FARXIGA 10 MG PO (08:22)
[2024-10-23] MEDS: SANTYL OINTMENT 1 APPLIC TOPICAL (08:23)
[2024-10-23] MEDS: APRESOLINE 50 MG PO ×3 (08:27→21:21)
--- NOTE | 2024-10-23 08:28 | W.PN.VS ---
Today's Communication / Plan
-
increase activity
Assessment/Plan
-
Postoperative day #2 status post right lower extremity arteriogram with angioplasty of the right anterior tibial artery.
-s/p toe amp
- PT eval and treat
- OOB and ambulate
- wants to go home friday
Subjective Data
-
Date of Service: October 23, 2024
doing well
mild pain in foot at surgical site
Objective Data
-
Vital Signs
Temp Pulse Resp BP Pulse Ox
98.7 F 72 18 124/76 96
10/23/24 07:05 10/23/24 07:05 10/23/24 07:05 10/23/24 07:05 10/23/24 07:05
Intake and Output
10/22/24 10/23/24 10/24/24
06:59 06:59 06:59
Intake Total 1355 / 1355 650 / 650
Output Total 850 / 850 1800 / 1800
Balance 505 / 505 -1150 / -1150
Intake:
Oral fluids 480 / 480
IV fluids (Total) 285 / 285
norm saline 125 / 125
IV piggybacks 590 / 590 650 / 650
Output:
Urine, Voided 850 / 850 1800 / 1800
Lab Results
10/22/24 08:18
10/23/24 05:22
Calcium 8.9 mg/dl (8.4-10.2) 10/23/24 05:22
Total Bilirubin 0.4 mg/dl (0.2-1.3) 10/23/24 05:22
AST 14 U/L (17-59) L 10/23/24 05:22
ALT 15 U/L (0-50) 10/23/24 05:22
Alkaline Phosphatase 76 U/L (38-126) 10/23/24 05:22
Total Protein 6.0 g/dl (6.3-8.2) L 10/23/24 05:22
Albumin 3.3 g/dl (3.5-5.0) L 10/23/24 05:22
Physical Exam
-
dressing intact
+AT signal - excellent
--- NOTE | 2024-10-23 08:30 | PHA.VAN.FU ---
Vancomycin Assessment / Plan
- Assessment
Renal Function: SCR Increasing
WBC's are: WNL
In the past 24 hrs, patient has been: Afebrile
Concomitant Antimicrobials: piperacillin/tazobactam
- Dosing Plan
Continue: vancomycin 1250 mg Q12H
- Monitoring Plan
Peak Level: 7.12 @2130
Trough Level: 7.13 @0530
- Follow Up
Pharmacy will continue to follow.
Vancomycin Follow UP
- -
Patient Age: 59
Patient Sex: Male
Vancomycin Day #: 3
Indication: Skin And Soft Tissue (TOE INFECTION)
Requesting Provider: FABIÁN
Height / Weight:
Height 5 ft 11 in
Actual Weight 111.13 kg
Pertinent Past Medical History: DM; BMI = 34
- Vital Signs / Lab Results
Temp Pulse Resp BP Pulse Ox
98.7 F 72 18 124/76 96
10/23/24 07:05 10/23/24 07:05 10/23/24 07:05 10/23/24 07:05 10/23/24 07:05
Lab Results - Hematology
10/21/24 10/22/24
08:25 08:18
WBC 10.6 9.1
Lab Results - Chemistry
10/21/24 10/22/24 10/23/24
08:25 08:18 05:22
BUN 18 19 17
Creatinine 0.9 1.0 1.1
Estimated Creat Clear 113 102 93
Albumin 3.3 L
Therapeutic Drug Monitoring
Random Vancomycin 9.6 ug/ml 10/22/24 08:18
[2024-10-23] MEDS: TYLENOL 650 MG PO (09:39)
--- NOTE | 2024-10-23 09:53 | W.PN.POD ---
Today's Communication
Today's Communication
Patient stable from podiatry
Assessment / Plan
-
S/P Right partial hallux amputation POD #1
Diabetic small vessel disease
Recent LT lower leg amputation 09/2024
Plan ; Changed surgical dressings, applied adaptic, dry gauze and kerlix
Will order wedge shoe for him to ambulate
HE can f/u in my office after discharge for all post op care
Subjective
Chief Complaint
Right great toe gangrene
Subjective
Patient seen at bedside, doing well, had mild pain in Right foot at surgical site, He is no acute distress, no fever, chills, no calf pain
Objective
Temp Pulse Resp BP Pulse Ox
98.7 F 72 18 124/76 96
10/23/24 07:05 10/23/24 08:27 10/23/24 07:05 10/23/24 08:27 10/23/24 07:05
10/22/24 08:18
10/23/24 05:22
Vital Signs and Lab results were reviewed.
Right foot palpable Dp , foot war to touch.
Rt hallux amputation site is clean, dry, no bloody oozing noted, intact sutures, able to move his toes.
Incision edges are healthy, no necrosis
[2024-10-23 12:01] LABS: Glucose - Point of Care 142 mg/dl (70-99)
[2024-10-23 15:20] VITALS: BP 129/72
[2024-10-23 17:02] LABS: Glucose - Point of Care 121 mg/dl (70-99)
[2024-10-23] MEDS: LANTUS 0.05 UNITS SC (17:21)
[2024-10-23 21:21] VITALS: BP 147/75
[2024-10-23 22:01] LABS: Glucose - Point of Care 103 mg/dl (70-99)
[2024-10-23 23:13] VITALS: BP 142/72
[2024-10-24] MEDS: ROXICODONE 5 MG PO ×4 (01:13→23:05)
[2024-10-24] MEDS: ZOSYN 50 IV ×4 (05:28→23:00)
[2024-10-24] MEDS: VANCOCIN 275 MG IV (06:43)
[2024-10-24 07:05] VITALS: BP 149/71
--- NOTE | 2024-10-24 07:10 | PTCARENOTE ---
This RN notified pharmacy regarding patient's Vancomycin Trough 20.2. Questioned if current infusion should be placed on hold? Per Aracelis, continue infusion and she will readjust 1800 dose. This RN passed along to dayshift.
[2024-10-24 07:41] LABS: Glucose - Point of Care 74 mg/dl (70-99)
[2024-10-24] MEDS: NOVOLOG FLEXPEN-MODERATE RESISTANCE SC ×3 (08:24→17:11)
[2024-10-24] MEDS: FARXIGA 10 MG PO (08:35)
[2024-10-24] MEDS: ZESTRIL 40 MG PO (08:35)
[2024-10-24] MEDS: NORVASC 5 MG PO (08:37)
[2024-10-24] MEDS: CRESTOR 20 MG PO (08:37)
[2024-10-24] MEDS: CATAPRES 0.1 MG PO (08:38)
[2024-10-24] MEDS: LOW STRENGTH ASPIRIN 81 MG PO (08:38)
[2024-10-24] MEDS: APRESOLINE 50 MG PO ×3 (08:38→21:10)
[2024-10-24] MEDS: HEPARIN 5000 UNITS SC ×3 (08:39→23:00)
[2024-10-24] MEDS: ORETIC 25 MG PO (08:39)
[2024-10-24] MEDS: SANTYL OINTMENT 1 APPLIC TOPICAL (08:40)
--- NOTE | 2024-10-24 08:45 | W.PN.VS ---
Today's Communication / Plan
-
d/c home ophelia
Assessment/Plan
-
Postoperative day #3 status post right lower extremity arteriogram with angioplasty of the right anterior tibial artery.
-s/p toe amp
- PT eval and treat
- OOB and ambulate
- wants to go home friday
Subjective Data
-
Date of Service: October 24, 2024
Doing well
no complaints
Objective Data
-
Vital Signs
Temp Pulse Resp BP Pulse Ox
98.8 F 81 18 149/71 95
10/24/24 07:05 10/24/24 08:39 10/24/24 07:05 10/24/24 08:39 10/24/24 07:05
Intake and Output
10/23/24 10/24/24 10/25/24
06:59 06:59 06:59
Intake Total 650 / 650 2019 / 2019
Output Total 1800 / 1800 4300 / 4300
Balance -1150 / -1150 -2280 / -2280
Intake:
Oral fluids 1550 / 1550
IV fluids (Total) 20
IV piggybacks 650 / 650 450 / 450
Output:
Urine, Voided 1800 / 1800 4300 / 4300
Lab Results
10/22/24 08:18
10/23/24 05:22
Calcium 8.9 mg/dl (8.4-10.2) 10/23/24 05:22
Total Bilirubin 0.4 mg/dl (0.2-1.3) 10/23/24 05:22
AST 14 U/L (17-59) L 10/23/24 05:22
ALT 15 U/L (0-50) 10/23/24 05:22
Alkaline Phosphatase 76 U/L (38-126) 10/23/24 05:22
Total Protein 6.0 g/dl (6.3-8.2) L 10/23/24 05:22
Albumin 3.3 g/dl (3.5-5.0) L 10/23/24 05:22
Physical Exam
-
rrr
ctab
+ AT signal
[2024-10-24 11:37] LABS: Glucose - Point of Care 104 mg/dl (70-99)
--- NOTE | 2024-10-24 11:43 | PHA.VAN.FU ---
Vancomycin Assessment / Plan
- Assessment
Renal Function: Stable
WBC's are: WNL
In the past 24 hrs, patient has been: Afebrile
Concomitant Antimicrobials: piperacillin/tazobactam
- Assessment - Therapeutic Drug Monitoring
Extrapolated Cmax (mcg/mL): 30.8
Peak level was drawn: Appropriately
Extrapolated Cmin (mcg/mL): 20.2
Trough Drawn: Appropriately
Calculated AUC (mcg*h/mL): 657
Calculated ke: 00.537
Calculated half life (H): 12.9
Calculated Vd (L): 70.77
Calculated Vanc CL (ml/min): 63.39
- Dosing Plan
Dosing by Level: Hold off on dosing today
- Monitoring Plan
Random Level: level ordered for 7.14 @ 0600
- Follow Up
Pharmacy will continue to follow.
Vancomycin Follow UP
- -
Patient Age: 59
Patient Sex: Male
Vancomycin Day #: 4
Indication: Skin And Soft Tissue (TOE INFECTION)
Requesting Provider: FABIÁN
Height / Weight:
Height 5 ft 11 in
Actual Weight 111.13 kg
Pertinent Past Medical History: DM; BMI = 34
- Vital Signs / Lab Results
Temp Pulse Resp BP Pulse Ox
98.8 F 81 18 149/71 95
10/24/24 07:05 10/24/24 08:39 10/24/24 07:05 10/24/24 08:39 10/24/24 07:05
Lab Results - Hematology
10/22/24
08:18
WBC 9.1
Lab Results - Chemistry
10/22/24 10/23/24
08:18 05:22
BUN 19 17
Creatinine 1.0 1.1
Estimated Creat Clear 102 93
Albumin 3.3 L
Therapeutic Drug Monitoring
Vancomycin Peak 30.8 ug/ml (18-26) H 10/23/24 21:30
Vancomycin Trough 20.2 ug/ml (5-20) H* 10/24/24 05:21
Random Vancomycin 9.6 ug/ml 10/22/24 08:18
--- NOTE | 2024-10-24 13:14 | W.PN.POD ---
Today's Communication
Today's Communication
Patient is stable form podiatry to dischrge
Assessment / Plan
-
S/P Right partial hallux amputation POD #2
Diabetic small vessel disease
Recent LT lower leg amputation 09/2024
Plan ; Changed surgical dressings, applied adaptic, dry gauze and kerlix
ambulate with wedge shoe
f/u in my office 11/03
Subjective
Chief Complaint
Right great toe gangrene
Subjective
Patient seen at bedside, doing well, had mild pain in Right foot at surgical site, He is no acute distress, no fever, chills, no calf pain
Objective
Temp Pulse Resp BP Pulse Ox
98.8 F 81 18 149/71 95
10/24/24 07:05 10/24/24 08:39 10/24/24 07:05 10/24/24 08:39 10/24/24 07:05
10/22/24 08:18
10/23/24 05:22
Vital Signs and Lab results were reviewed.
Right foot palpable Dp , foot warm to touch. No discoloration, no edema
Rt hallux amputation site is clean, dry, no bloody oozing noted, intact sutures, able to move his toes.
Incision edges are healthy, no necrosis
[2024-10-24 17:03] LABS: Glucose - Point of Care 149 mg/dl (70-99)
[2024-10-24] MEDS: LANTUS 0.05 UNITS SC (17:33)
[2024-10-24 21:46] LABS: Glucose - Point of Care 112 mg/dl (70-99)
[2024-10-24 23:05] VITALS: BP 133/63
[2024-10-25] MEDS: ROXICODONE 5 MG PO ×2 (03:16→12:15)
[2024-10-25] MEDS: ZOSYN 50 IV ×2 (05:30→12:13)
[2024-10-25 07:40] VITALS: BP 139/72
[2024-10-25] MEDS: FARXIGA 10 MG PO (07:48)
[2024-10-25] MEDS: HEPARIN 5000 UNITS SC (07:49)
[2024-10-25] MEDS: ZESTRIL 40 MG PO (07:49)
[2024-10-25] MEDS: ORETIC 25 MG PO (07:49)
[2024-10-25] MEDS: CATAPRES 0.1 MG PO (07:49)
[2024-10-25] MEDS: LOW STRENGTH ASPIRIN 81 MG PO (07:49)
[2024-10-25] MEDS: NORVASC 5 MG PO (07:49)
[2024-10-25] MEDS: APRESOLINE 50 MG PO (07:50)
[2024-10-25] MEDS: CRESTOR 20 MG PO (07:50)
[2024-10-25] MEDS: SANTYL OINTMENT 1 APPLIC TOPICAL (07:50)
[2024-10-25 07:51] LABS: Glucose - Point of Care 77 mg/dl (70-99)
[2024-10-25] MEDS: NOVOLOG FLEXPEN-MODERATE RESISTANCE SC ×2 (07:51→12:16)
[2024-10-25 08:22] VITALS: BP 139/72
--- NOTE | 2024-10-25 08:32 | W.PN.VS ---
Today's Communication / Plan
-
Seen and assessed with Dr. Bustamante
Assessment/Plan
-
Postoperative day #4 status post right lower extremity arteriogram with angioplasty of the right anterior tibial artery.
- Patient ready for discharge
Subjective Data
-
Date of Service: October 25, 2024
Patient seen at bedside same Dr. Bustamante. Patient offers at bedside. No events overnight. Sitting up in bed eating breakfast.
Objective Data
-
Vital Signs
Temp Pulse Resp BP Pulse Ox
98.2 F 74 18 139/72 99
10/25/24 07:40 10/25/24 07:40 10/25/24 07:40 10/25/24 07:40 10/25/24 07:40
Intake and Output
10/24/24 10/25/24 10/26/24
06:59 06:59 06:59
Intake Total 2020 / 2020 500 / 500
Output Total 4300 / 4300 1800 / 1800 700 / 700
Balance -2280 / -2280 -1300 / -1300 -700 / -700
Intake:
Oral fluids 1550 / 1550 400 / 400
IV fluids (Total) 20 / 20
IV piggybacks 450 / 450 100 / 100
Output:
Urine, Voided 4300 / 4300 1800 / 1800 700 / 700
Lab Results
10/22/24 08:18
10/23/24 05:22
Calcium 8.9 mg/dl (8.4-10.2) 10/23/24 05:22
Total Bilirubin 0.4 mg/dl (0.2-1.3) 10/23/24 05:22
AST 14 U/L (17-59) L 10/23/24 05:22
ALT 15 U/L (0-50) 10/23/24 05:22
Alkaline Phosphatase 76 U/L (38-126) 10/23/24 05:22
Total Protein 6.0 g/dl (6.3-8.2) L 10/23/24 05:22
Albumin 3.3 g/dl (3.5-5.0) L 10/23/24 05:22
Physical Exam
-
Afebrile.
Awake and alert.
Abdomen soft, nondistended, nontender.
Left groin puncture site flat, no hematoma.
Right foot is warm. 1+ DP pulse palpable still.
Foot wrapped from podiatric procedure
--- NOTE | 2024-10-25 10:11 | CM ---
CM following re: discharge planning.
Reviewed pt's chart, met with pt.
Discharge order noted. Pt is aware, expressed his agreement with discharge and pt stated he is awaiting for a boot and he will call his mother and she will transport him home. Pt stated [facility]
Per RN a boot will be delivered to pt's room today at 3:30 p.m.
No after care VN services indicated.
D/C plan: home with family support. Mother to transport.
[2024-10-25 12:17] LABS: Glucose - Point of Care 126 mg/dl (70-99)
[2024-10-25 15:00] VITALS: BP 137/67
[2024-10-25 15:20] VITALS: BP 149/77
--- NOTE | 2024-10-25 16:22 | PTCARENOTE ---
Patient discharged at this time following [facility] boot/shoe delivery/arrival to hospital room & patient's mother arrived to transport home.
== END 2024-10-25 16:41 | disposition home or self-care (01) | DRG 253 ==
LOC: 2 SOUTH 13:50
PROVIDERS: Nurse Practitioner; ADMITTING PHYSICIAN Surgery Vascular Surgery; CONSULT PHYSICIAN Podiatrist Foot & Ankle Surgery; PRIMARYCARE PHYSICIAN Family Medicine
PROC: 047P3ZZ Dilation of Right Anterior Tibial Artery, Percutaneous Approach (ICD-10-PCS; 2024-10-21)
PROC: B41D1ZZ Fluoroscopy of Aorta and Bilateral Lower Extremity Arteries using Low Osmolar Contrast (ICD-10-PCS; 2024-10-21)
PROC: 0Y6P0Z3 Detachment at Right 1st Toe, Low, Open Approach (ICD-10-PCS; 2024-10-22)
DX: E11.52 Type 2 diabetes mellitus with diabetic peripheral angiopathy with gangrene (principal); I70.261 Atherosclerosis of native arteries of extremities with gangrene, right leg; I10 Essential (primary) hypertension; E78.5 Hyperlipidemia, unspecified; E11.40 Type 2 diabetes mellitus with diabetic neuropathy, unspecified; E66.812 Obesity, class 2; Z89.512 Acquired absence of left leg below knee; Z68.34 Body mass index [BMI] 34.0-34.9, adult
CPT/HCPCS: 37228; 37232; 75625; 75710; 80048; 80053; 80202; 82962; 83036; 85027; 85610; 85730; 86850; 86900; 86901; 87070; 87075; 87077; 87186; 87205; 88305; 88311; 93005; 93922; 93926; 93971; C1725; C1769; C1887; C1894; Q9967

== ENCOUNTER 2024-11-12 15:30 | Emergency (ER) | payer BC, SELFPAY ==
[2024-11-12 15:34] VITALS: BP 107/83
[2024-11-12 15:35] LABS: Glucose - Point of Care 150 mg/dl (70-99)
[2024-11-12 18:12] VITALS: BP 140/76
--- NOTE | 2024-11-12 18:36 | ED.GENMED ---
History of Present Illness
<Emilee Flood PA-C - Last Filed: 11/13/24 04:16>
General
Chief Complaint: Blood Sugar Problem
Source: patient
Exam Limitations: none
Time Seen by Provider: 11/12/24 18:26
Nursing documentation reviewed up to this point in time: agreed with
History of Present Illness
History of Present Illness:
Note:
CHIEF COMPLAINT(S)
Visual changes and weakness upon waking.
HISTORY OF PRESENT ILLNESS
The patient is a 59-year-old male with past medical history of diabetes, hypertension, anemia, who presented to the emergency department with complaints of weakness and visual changes upon waking. He reported that the visual changes consist of
blurriness affecting his entire field of vision. The patient denied experiencing similar symptoms in the past. He does not report headaches, neck pain, or episodes of visual loss but mentions that the blurriness persists in bright environments and
slightly improves in darker settings. He experienced shadows in his vision at times. He does wear glasses at baseline he is unsure of his baseline visual acuity. He denies any head or neck trauma. He denies any pain in his jaw with eating. He
denies any chest pain, vomiting, fever, chills, or recent contact with sick individuals. He mentioned having been checked for glaucoma two years ago with no specific follow-up since then. The visual disturbance prompted his primary care physician at
[facility] to recommend an ER visit.
ADDITIONAL HISTORY OBTAINED FROM SOURCES OTHER THAN THE PATIENT
The patient stated the recommendation to visit the ER was from his primary care provider at the [facility].
PHYSICAL EXAM
Nursing notes reviewed and vital signs reviewed.
General: Patient is well appearing and in no acute distress; non-toxic
Skin: Warm and dry, no rashes or lesions
Head: Normocephalic, atraumatic
Eyes: Sclera non-icteric. EOMs intact. Peripheral visual concepcion intact. Right eye 20/80, left eye able to identify the large K on the snellen chart. Patient is able to make out faces and identify people with the left eye when the right eye is
covered. No evidence of fluorescein uptake.
Cardiac: Regular rate and rhythm, no murmurs
Peripheral Vascular: No lower extremity swelling or edema
Pulm: Normal respiratory effort, no wheezes, rales, rhonchi
Neuro: CN II-XII intact, no focal neurologic deficits. No cranial nerve palsy.
Psychiatric: Appropriate mood and affect.
PROBLEM LIST
Acute:
- Visual changes
- Generalized weakness
PLAN
The plan included conducting blood work and performing further visual testing. An electrocardiogram (EKG) and computed tomography (CT) scan of the head were already completed and showed no signs of acute injury or cardiac-related causes for the
symptoms.
DIFFERENTIAL DIAGNOSIS
The Differential Diagnosis includes, in no particular order and is not limited to:
1. Transient ischemic attack (TIA)
2. Migraine with aura
3. Ophthalmic conditions (e.g., retinal detachment or macular degeneration)
4. Cardiovascular-related vision changes
5. Diabetes mellitus-related vision changes
6. Hypertensive retinopathy
7. Neurological causes such as stroke
8. Multiple sclerosis
9. Myasthenia gravis
10. Medication side effects
CHART REVIEW
Reviewed operative report from 10/31/2024 patient seen for duplex assisted cannulation of the left common femoral artery with balloon angioplasty of distal leg [employer] artery, patient also had right partial hallux amputation secondary to diabetes
Reviewed discharge summary from 10/06 patient seen for rehab after left lower limb surgery
UPDATE
Patient recently had surgery on his right great toe. Patient has been taking oxycodone 5 mg as needed at home.
8:58 pm--- awaiting ophthalmology input
MDM/DISPOSITION
Patient is a 59-year-old male with history of type 2 diabetes who comes into the emergency department today with concerns of fatigue and bilateral blurry vision upon awakening. He has had on and off blurry vision in the past few days but seems like
today was the worst. It seems to be worse on the left side. He denies head or neck trauma fevers or chills nausea or vomiting eye pain, helen visual loss. On exam he has no focal neurologic deficits. He has no cranial nerve palsy. His sclera
are normal. His pupils are equal round and reactive, his EOMs are normal. He has normal intraocular pressure, and his peripheral visual concepcion are intact. He does have decreased visual acuity both sides. He currently does not follow with an
area supervisor. He does have a LINDY which was treated with IV fluids but otherwise his blood work is unremarkable and his head CT was normal. Reviewed case with my attending who also evaluated patient at bedside. Reviewed case with ophthalmology
Dr. Bruner who had nothing to add at this time however was able to help facilitate urgent outpatient follow-up at [facility] tomorrow in [place]. Office staff will call him tomorrow but no later than 9 AM for same-day appointment.
Reviewed information with patient and stressed that there is urgent need for outpatient follow-up. Patient expressed understanding and states that he will follow-up with his appointment tomorrow. Discussed strict return precautions. Patient
stable for discharge
Past History
<Emilee Flood PA-C - Last Filed: 11/13/24 04:16>
Past History
ED Past Medical History: HTN, Hypercholesterolemia and IDDM
ED Past Surgical History: Orthopedic (ORIF pelvic fx 2016)
Social History
Tobacco: Other (occasional cigar)
Alcohol: Occasional
Drug: None
Employment: Employed
Phy Exam
<Emilee Flood PA-C - Last Filed: 11/13/24 04:16>
Physical Exam
Physical Exam:
see hpi
Course
<Emilee Flood PA-C - Last Filed: 11/13/24 04:16>
Orders/Labs/Results
Orders:
Orders
11/12/24 15:38
CT Head W/o Iv Contrast Urgent
Comment:
Reason For Exam: vision changes
11/12/24 15:41
Electrocardiogram (*1) Urgent
Reason for Study: Fatigue / Weakness
EKG- Treatment ONCE
11/12/24 19:08
Oxycodone [Roxicodone] 5 mg PO NOW STA
11/12/24 19:45
CMP [Comprehensive Metabolic Panel] Urgent
Complete Blood Count/With Diff Urgent
11/12/24 20:16
0.9% Sodium Chloride 1000 ml [Nss] 1,000 ml IV BOLUS
11/12/24 20:33
Tetracaine HCl [Tetracaine 0.5% Ophthalmic Solution] 1 drop .ROUTE .STK-MED ONE
11/12/24 20:48
Fluorescein Sodium [Ful-Porsche] 2 mg .ROUTE .STK-MED ONE
Abnormal Lab Results
11/12/24 11/12/24
15:33 19:45
WBC 11.0 H 10^3/uL
(4.8-10.8)
RBC 3.56 L 10^6/uL
(4.70-6.10)
Hgb 10.3 L g/dL
(13.0-18.0)
Hct 31.9 L %
(39.0-52.0)
MCHC 32.3 L g/dL
(33.0-37.0)
Absolute Neuts (auto) 8.4 H 10^3/uL
(1.4-6.5)
Absolute Monos (auto) 0.7 H 10^3/uL
(0.1-0.6)
Neutrophils % 76.5 H %
(42.2-75.2)
Lymphocytes % 14.5 L %
(20.5-51.1)
Sodium 134 L mmol/L
(135-145)
Carbon Dioxide 20 L mmol/L
(22-30)
BUN 52 H mg/dl
(9-20)
Creatinine 1.6 H mg/dL
(0.7-1.3)
Glucose 119 H mg/dl
(70-99)
AST 15 L U/L
(17-59)
POC Glucose 150 H mg/dl
(70-99)
11/12/24 19:45
11/12/24 19:45
Vital Signs
Initial and Last Documented VS:
Initial Vital Signs
Temp Pulse Resp BP Pulse Ox
98.4 F 92 16 107/83 97
11/12/24 15:34 11/12/24 15:34 11/12/24 15:34 11/12/24 15:34 11/12/24 15:34
Last Documented Vital Signs
Temp Pulse Resp BP Pulse Ox
98.4 F 80 10 135/80 100
11/12/24 15:34 11/12/24 21:45 11/12/24 21:45 11/12/24 21:00 11/12/24 21:45
Yuelt;Stanislaw Dailey DO - Last Filed: 11/12/24 20:42>
Orders/Labs/Results
Orders:
Orders
11/12/24 15:38
CT Head W/o Iv Contrast Urgent
Comment:
Reason For Exam: vision changes
11/12/24 15:41
Electrocardiogram (*1) Urgent
Reason for Study: Fatigue / Weakness
EKG- Treatment ONCE
11/12/24 19:08
Oxycodone [Roxicodone] 5 mg PO NOW STA
11/12/24 19:45
CMP [Comprehensive Metabolic Panel] Urgent
Complete Blood Count/With Diff Urgent
11/12/24 20:16
0.9% Sodium Chloride 1000 ml [Nss] 1,000 ml IV BOLUS
11/12/24 20:33
Tetracaine HCl [Tetracaine 0.5% Ophthalmic Solution] 1 drop .ROUTE .STK-MED ONE
11/12/24 20:48
Fluorescein Sodium [Ful-Porsche] 2 mg .ROUTE .STK-MED ONE
Abnormal Lab Results
11/12/24 11/12/24
15:33 19:45
WBC 11.0 H 10^3/uL
(4.8-10.8)
RBC 3.56 L 10^6/uL
(4.70-6.10)
Hgb 10.3 L g/dL
(13.0-18.0)
Hct 31.9 L %
(39.0-52.0)
MCHC 32.3 L g/dL
(33.0-37.0)
Absolute Neuts (auto) 8.4 H 10^3/uL
(1.4-6.5)
Absolute Monos (auto) 0.7 H 10^3/uL
(0.1-0.6)
Neutrophils % 76.5 H %
(42.2-75.2)
Lymphocytes % 14.5 L %
(20.5-51.1)
Sodium 134 L mmol/L
(135-145)
Carbon Dioxide 20 L mmol/L
(22-30)
BUN 52 H mg/dl
(9-20)
Creatinine 1.6 H mg/dL
(0.7-1.3)
Glucose 119 H mg/dl
(70-99)
AST 15 L U/L
(17-59)
POC Glucose 150 H mg/dl
(70-99)
11/12/24 19:45
11/12/24 19:45
Vital Signs
Initial and Last Documented VS:
Initial Vital Signs
Temp Pulse Resp BP Pulse Ox
98.4 F 92 16 107/83 97
11/12/24 15:34 11/12/24 15:34 11/12/24 15:34 11/12/24 15:34 11/12/24 15:34
Last Documented Vital Signs
Temp Pulse Resp BP Pulse Ox
98.4 F 80 10 135/80 100
11/12/24 15:34 11/12/24 21:45 11/12/24 21:45 11/12/24 21:00 11/12/24 21:45
<Emilee Flood PA-C - Last Filed: 11/13/24 04:16>
*Pulse Oximetry
SaO2: 99
Oxygen Mode of Delivery: Room air
Patient hypoxic: no
*Critical Care Note
Total Time (30-74mins, 75-104mins- exclusive of procedures): Not Applicable
ED Attending Note
<Emilee Flood PA-C - Last Filed: 11/13/24 04:16>
-
Portions of this chart may have been created with voice recognition software.� Occasional wrong word or��sound alike� substitutions may have occurred due to the inherent limitations of voice recognition software.
<Stanislaw Dailey DO - Last Filed: 11/12/24 20:42>
ED Attending Note
Patient seen and examined by attending physician: Yes
I performed the substantive portion of visit, reviewed & personally made and approve the management plan that is documented in note by myself or SAIMA.: Yes
ED Attending Note:
I agree with hopelavinia note
Patient presents for evaluation of blurred vision. Patient has noted his vision was a bit blurry particularly when he was outside in bright lights for the past week or so. However when he woke up this morning his vision was noticeably more blurry.
He had not noticed 1 eye being worse than the other but he had not really checked. However during Emilee's evaluation it was evident that his right eye seemed to be significantly more altered than the left. Currently sees objects but not able to
discern letters. He denies any pain. He denies any double vision. He denies vision loss or areas of vision loss but rather just a blurry nature to what he sees. No trauma. Patient was recently hospitalized for a left below the knee amputation
as well as a right great toe amputation as well as vascular surgery.
General: Awake, Alert, Oriented X3. No acute distress.
Vitals: unremarkable
Head: Atraumatic
Eyes: Pupils equal, EOMI, eyelids are symmetric, anterior chamber appears clear, no afferent pupillary defect to my evaluation, intraocular pressure 13 on the left
Throat: Airway intact, no exudates
Neck: Trachea midline
Lungs: Clear and equal b/l
Heart: Regular rate, no murmurs
Abd: Soft, Nontender, No pulsatile mass
Neuro: Cranial nerves intact, muscle strength equal bilaterally
Skin: Warm, dry, no rash
Extremities: pulses equal b/l, no edema, left below the knee amputation
Hope will assess for any fluorescein uptake. She will contact either the patient's area supervisor or area supervisor to arrange close follow-up. This does not appear to be a ischemic type event as he has a otherwise normal exam. He does not have
any extraocular muscle deficits at least none that I can identify nor does he have diplopia to suggest an extraocular muscle deficit. He does not have vision loss to suggest a retinal artery occlusion or branch retinal artery occlusion.
Discharge Plan
Departure
Patient Disposition: Home (Routine Discharge)
Date of Disposition: 11/12/24
Time of Disposition: 21:50
Patient with high blood pressure during this ER visit?: No
Condition: Good
Discharge Problem:
Blurred vision, Acute kidney injury
Instructions: Acute kidney injury, Type 2 Diabetes (DC), BLOOD PRESSURE
Prescriptions:
No Action
Ozempic 0.25 mg or 0.5 mg (2 mg/3 mL) Pen Injector
0.25 mg SC ESTRADA
amlodipine 5 mg Tablet
5 mg PO DAILY
hydrochlorothiazide 25 mg Tablet
25 mg PO DAILY
metformin 750 mg tablet extended release 24 hr
750 mg PO DAILY
lisinopril 40 mg tablet
40 mg PO DAILY
aspirin 81 mg Tablet,Chewable
81 mg PO DAILY Qty: 120 0RF
oxycodone 5 mg Tablet
5 mg PO Q4HPRN PRN (Reason: moderate pain) Qty: 8 0RF
rosuvastatin 20 mg Tablet
20 mg PO DAILY 30 Days Qty: 30 0RF
dapagliflozin propanediol 10 mg Tablet
10 mg PO DAILY 30 Days Qty: 30 0RF
oxycodone 5 mg Tablet
5 mg PO Q4HPRN PRN (Reason: Moderate pain) 3 Days Qty: 10 0RF
insulin glargine [Lantus Solostar U-100 Insulin] 100 unit/mL (3 mL) insulin pen
5 unit SC QPM 30 Days Qty: 1.5 0RF
Patient Comments:
Has not taken since 09/15 discharge
clonidine HCl 0.1 mg tablet
0.1 mg PO DAILY 30 Days Qty: 30 0RF
hydralazine 50 mg Tablet
50 mg PO TID 30 Days Qty: 90 0RF
Referrals:
Tamika Bruner MD [Active, Ophthalmology] - Tomorrow
Mari Murillo MD [Family Provider, Family Practice]
Activity Restrictions/Additional Instructions:
[facility]
[address]
[place] [address]
[phone]
You should receive a call around 9 AM tomorrow to schedule an appointment with [facility] eye care that same day. If you do not receive a call, please call attached number above.
Please have blood work repeated with your primary care provider in the next coming days to ensure your kidney function has returned to normal.
PLEASE RETURN EMERGENCY DEPARTMENT SHOULD YOU DEVELOP CHEST PAIN, SHORTNESS OF BREATH, EYE PAIN, VISUAL LOSS, HEADACHE, NAUSEA OR VOMITING, OR ANY OTHER SIGNS OR SYMPTOMS WORRISOME TO YOU.
Interventions
Interventions:
*Risk Screen - Suicide Last Done: 11/12/24 15:34
*Neglect/Abuse Screening Last Done: 11/12/24 15:34
*Nursing Disposition Last Done: 11/12/24 21:58
ED- Neurological Assessment Last Done: 11/12/24 18:15
Discharge Date and Time
Discharge Date/Time: 11/12/24 21:58
Print Language: ALBANIAN
[2024-11-12] MEDS: ROXICODONE 5 MG PO (19:17)
[2024-11-12 19:23] VITALS: BP 118/77
[2024-11-12 19:52] LABS: Hematocrit 31.9 % (39.0-52.0); Hemoglobin 10.3 g/dL (13.0-18.0); Mean Corp Hgb Conc. 32.3 g/dL (33.0-37.0); Mean Corpuscular Volume 89.6 fL (80.0-94.0); Nucleated Red Blood Cells % 0 % (-); Platelet Count 379 10^3/uL (130-400); Red Cell Dist. Width 13.8 % (11.5-14.5)
[2024-11-12 20:08] LABS: ALT (SGPT) 16 U/L (0-50); AST (SGOT) 15 U/L (17-59); Albumin 4.4 g/dl (3.5-5.0); Alkaline Phosphatase 102 U/L (38-126); Blood Urea Nitrogen 52 mg/dl (9-20); Calcium 9.6 mg/dl (8.4-10.2); Carbon Dioxide 20 mmol/L (22-30); Chloride 101 mmol/L (98-107); Glucose 119 mg/dl (70-99); Potassium 4.8 mmol/L (3.5-5.1); Sodium 134 mmol/L (135-145); Total Protein 7.7 g/dl (6.3-8.2); eGFR 49.63
[2024-11-12 20:30] VITALS: BP 132/82
[2024-11-12] MEDS: NSS 1000 IV (20:30)
[2024-11-12 21:00] VITALS: BP 135/80
== END 2024-11-12 21:58 | disposition home or self-care (01) ==
LOC: EMR 15:30
PROVIDERS: Emergency Medicine; EMERGENCY PHYSICIAN Emergency Medicine; FAMILY PHYSICIAN Family Medicine
DX: H53.8 Other visual disturbances (principal); R53.1 Weakness; R53.83 Other fatigue; N17.9 Acute kidney failure, unspecified; E11.22 Type 2 diabetes mellitus with diabetic chronic kidney disease; D64.9 Anemia, unspecified; I10 Essential (primary) hypertension; E78.00 Pure hypercholesterolemia, unspecified; F17.290 Nicotine dependence, other tobacco product, uncomplicated; Z98.890 Other specified postprocedural states; Z79.82 Long term (current) use of aspirin; Z89.512 Acquired absence of left leg below knee; Z89.411 Acquired absence of right great toe
CPT/HCPCS: 99285; 96360; 70450; 80053; 82962; 85025; 93005

== ENCOUNTER 2024-12-03 17:01 | Inpatient (IN) | payer BC, SELFPAY ==
[2024-12-03 11:24] VITALS: BP 106/73
[2024-12-03 11:59] VITALS: BMI 32.1
[2024-12-03 12:03] VITALS: BP 145/74
[2024-12-03 13:00] VITALS: BP 138/66
[2024-12-03] MEDS: ZOSYN 100 IV ×2 (13:08→20:23)
[2024-12-03 13:14] LABS: Hematocrit 28.4 % (39.0-52.0); Hemoglobin 9.1 g/dL (13.0-18.0); Mean Corp Hgb Conc. 32.0 g/dL (33.0-37.0); Mean Corpuscular Volume 88.5 fL (80.0-94.0); Nucleated Red Blood Cells % 0 % (-); Platelet Count 490 10^3/uL (130-400); Red Cell Dist. Width 13.7 % (11.5-14.5)
[2024-12-03] MEDS: TORADOL 15 MG IV (13:20)
[2024-12-03] MEDS: ZOFRAN 4 MG IV (13:20)
--- NOTE | 2024-12-03 13:46 | ED.GENMED ---
History of Present Illness
<Myke Quinteros Jr., PA-C - Last Filed: 12/03/24 14:46>
General
Chief Complaint: Skin Problem
Source: patient
Exam Limitations: none
Time Seen by Provider: 12/03/24 12:09
Nursing documentation reviewed up to this point in time: agreed with
History of Present Illness
History of Present Illness:
59-year-old male past with history of hypertension diabetes presenting to the emergency department today with concerns of worsening skin changes to the right distal foot seen by the auto club travel counselor today. He was sent in by the auto club travel counselor for concerns of
worsening gangrene and potential infection to the area. Additionally had vascular surgery 1 month ago as well as a great toe amputation at that time as well. Otherwise no systemic symptoms some pain to the right foot.
Past History
<Myke Quinteros Jr., PA-C - Last Filed: 12/03/24 14:46>
Past History
ED Past Medical History: HTN, Hypercholesterolemia and IDDM
ED Past Surgical History: Orthopedic (ORIF pelvic fx 2016)
Social History
Tobacco: Other (occasional cigar)
Alcohol: Occasional
Drug: None
Employment: Employed
Review of Systems
<Myke Quinteros Jr., PA-C - Last Filed: 12/03/24 14:46>
Review of Systems
Allergies reviewed?: Yes
All Other Systems: ROS reviewed and negative except as documented in HPI and ROS
Phy Exam
<Myke Quinteros Jr., PA-C - Last Filed: 12/03/24 14:46>
Physical Exam
Physical Exam:
GENERAL: Alert , in no apparent distress
EYE: pupils equal and reactive
NECK: Supple, no significant adenopathy.
ENT: o/p clr, mmm.
CARDIAC: Regular rate and rhythm .
LUNGS: Clear breath sounds bilaterally, no acute respiratory distress, no wheezes/rales/rhonchi
ABDOMEN: Soft, without focal tenderness, no r/g, no cvat
NEUROLOGICAL: Alert and oriented, no focal neuro deficits
SKIN: Skin changes to the right distal foot with black discoloration to the right distal forefoot extending 1 cm into the forefoot surrounding but not including the second toe first toe was removed. Small amount of serosanguineous fluid draining
from the area no obvious purulence, warm and dry, skin intact.
MUSCULOSKELETAL: No edema, well perfused.
PSYCH: Normal and appropriate interaction.
Course
<Myke Quinteros Jr., ANTWAN - Last Filed: 12/03/24 14:46>
Orders/Labs/Results
Orders:
Orders
12/03/24 12:30
Basic Metabolic Panel Urgent
CBC/With Diff [Complete Blood Count/With Diff] Urgent
Blood Culture Q30M
DIANA Source: Blood/Venous
Specimen Description:
Wound Culture [Wound/Abscess/Other Culture] Urgent
DIANA Source: Foot
Specimen Description: Right
Date Specimen was Collected: 12/03/24
Time Specimen was Collected: 12:55
12/03/24 12:38
Piperacillin/Tazo 4.5 Gram [Zosyn] 4.5 gram in 100 ml IV NOW
12/03/24 12:50
Vancomycin [Vancocin] 2,000 mg 0.9% Sodium Chloride 500 ml [Nss] 500 ml IV NOW
12/03/24 12:53
CR Foot - Right Min 3 Views Urgent
Comment:
Reason For Exam: foot gangrene
12/03/24 12:56
Lactic Acid Urgent
12/03/24 13:00
Blood Culture Q30M
DIANA Source: Blood/Venous
Specimen Description:
12/03/24 13:12
Ketorolac [Toradol] 15 mg IV NOW STA
Ondansetron Injectable [Zofran] 4 mg IV NOW STA
12/03/24 14:39
US LE Arterial with Art. Brachial Index [US Periph Art LOWER Ext w BARRY] Routine
Comment:
Reason For Exam: eval post angio
Abnormal Lab Results
12/03/24
12:30
RBC 3.21 L 10^6/uL
(4.70-6.10)
Hgb 9.1 L g/dL
(13.0-18.0)
Hct 28.4 L %
(39.0-52.0)
MCHC 32.0 L g/dL
(33.0-37.0)
Plt Count 490 H 10^3/uL
(130-400)
Abs Immat Gran (auto) 0.1 H 10^3/uL
(0-0.05)
Absolute Neuts (auto) 6.7 H 10^3/uL
(1.4-6.5)
Absolute Monos (auto) 0.8 H 10^3/uL
(0.1-0.6)
Lymphocytes % 18.9 L %
(20.5-51.1)
Sodium 134 L mmol/L
(135-145)
BUN 26 H mg/dl
(9-20)
Glucose 170 H mg/dl
(70-99)
12/03/24 12:30
12/03/24 12:30
Vital Signs
Initial and Last Documented VS:
Initial Vital Signs
Temp Pulse Resp BP Pulse Ox
98.6 F 98 16 106/73 97
12/03/24 11:24 12/03/24 11:24 12/03/24 11:24 12/03/24 11:24 12/03/24 11:24
Last Documented Vital Signs
Temp Pulse Resp BP Pulse Ox
98.6 F 89 16 138/66 99
12/03/24 11:24 12/03/24 12:06 12/03/24 12:06 12/03/24 13:00 12/03/24 13:47
<Reuben Vale MD - Last Filed: 12/03/24 14:18>
Orders/Labs/Results
Orders:
Orders
12/03/24 12:30
Basic Metabolic Panel Urgent
CBC/With Diff [Complete Blood Count/With Diff] Urgent
Blood Culture Q30M
DIANA Source: Blood/Venous
Specimen Description:
Wound Culture [Wound/Abscess/Other Culture] Urgent
DIANA Source: Foot
Specimen Description: Right
Date Specimen was Collected: 12/03/24
Time Specimen was Collected: 12:55
12/03/24 12:38
Piperacillin/Tazo 4.5 Gram [Zosyn] 4.5 gram in 100 ml IV NOW
12/03/24 12:50
Vancomycin [Vancocin] 2,000 mg 0.9% Sodium Chloride 500 ml [Nss] 500 ml IV NOW
12/03/24 12:53
CR Foot - Right Min 3 Views Urgent
Comment:
Reason For Exam: foot gangrene
12/03/24 12:56
Lactic Acid Urgent
12/03/24 13:00
Blood Culture Q30M
DIANA Source: Blood/Venous
Specimen Description:
12/03/24 13:12
Ketorolac [Toradol] 15 mg IV NOW STA
Ondansetron Injectable [Zofran] 4 mg IV NOW STA
12/03/24 14:39
US LE Arterial with Art. Brachial Index [US Periph Art LOWER Ext w BARRY] Routine
Comment:
Reason For Exam: eval post angio
Abnormal Lab Results
12/03/24
12:30
RBC 3.21 L 10^6/uL
(4.70-6.10)
Hgb 9.1 L g/dL
(13.0-18.0)
Hct 28.4 L %
(39.0-52.0)
MCHC 32.0 L g/dL
(33.0-37.0)
Plt Count 490 H 10^3/uL
(130-400)
Abs Immat Gran (auto) 0.1 H 10^3/uL
(0-0.05)
Absolute Neuts (auto) 6.7 H 10^3/uL
(1.4-6.5)
Absolute Monos (auto) 0.8 H 10^3/uL
(0.1-0.6)
Lymphocytes % 18.9 L %
(20.5-51.1)
Sodium 134 L mmol/L
(135-145)
BUN 26 H mg/dl
(9-20)
Glucose 170 H mg/dl
(70-99)
12/03/24 12:30
12/03/24 12:30
Vital Signs
Initial and Last Documented VS:
Initial Vital Signs
Temp Pulse Resp BP Pulse Ox
98.6 F 98 16 106/73 97
12/03/24 11:24 12/03/24 11:24 12/03/24 11:24 12/03/24 11:24 12/03/24 11:24
Last Documented Vital Signs
Temp Pulse Resp BP Pulse Ox
98.6 F 89 16 138/66 99
12/03/24 11:24 12/03/24 12:06 12/03/24 12:06 12/03/24 13:00 12/03/24 13:47
<Myke Quinteros Jr., PA-C - Last Filed: 12/03/24 14:46>
MDM/Problems Addressed
MDM/Problems Addressed:
59-year-old male presenting to the emergency department today with concerns of skin changes to the right distal foot with concerns of gangrene with podiatry. Patient with no systemic symptoms. Does have skin significant skin changes to the right
foot unable to obtai a posterior tibialis pulse unable to get a dorsalis pedis pulse. Case discussed with vascular surgery that we will follow during admission otherwise will be admitted on IV antibiotics.
<Myke Quinteros Jr., PA-C - Last Filed: 12/03/24 14:46>
*Pulse Oximetry
SaO2: 99
Oxygen Mode of Delivery: Room air
Patient hypoxic: no (99)
*Critical Care Note
Total Time (30-74mins, 75-104mins- exclusive of procedures): Not Applicable
ED Attending Note
<Myke Quinteros Jr., PA-C - Last Filed: 12/03/24 14:46>
-
Portions of this chart may have been created with voice recognition software.� Occasional wrong word or��sound alike� substitutions may have occurred due to the inherent limitations of voice recognition software.
<Reuben Vale MD - Last Filed: 12/03/24 14:18>
ED Attending Note
Patient seen and examined by attending physician: Yes
I performed the substantive portion of visit, reviewed & personally made and approve the management plan that is documented in note by myself or SAIMA.: Yes
ED Attending Note:
Patient presents with concerns for an infection to the right foot near the first toe amputation site. Recommended to come in by podiatry yesterday. History of significant vascular disease. History of an angioplasty to the right leg. No acute
severe right leg pain numbness tingling or weakness. No fever or chills.
On exam patient has a left BKA. This is currently wrapped. There is a right relatively recent first toe amputation. Dark eschar at the base with surrounding erythema. Foot is warm and has good color. There is weak posterior tibial by Doppler.
No dorsalis pedis.
Impression is likely chronic ongoing vascular issues. Not an acute ischemic leg or foot. However there does not appear to be a cellulitic component. Refer to vascular surgery admit for IV antibiotics.
Discharge Plan
Departure
Patient Disposition: Admit
Date of Disposition: 12/03/24
Time of Disposition: 14:46
Admit to: Med/Surg
Admit to doctor: Medardo
Presentation/result/management discussed w/ accepting MD/DO: Hospitalist
Patient with high blood pressure during this ER visit?: No
Condition: Good
Covid-19: Not Applicable
Discharge Problem:
Gangrene of right foot
Prescriptions:
No Action
hydrochlorothiazide 25 mg Tablet
25 mg PO DAILY
lisinopril 40 mg tablet
40 mg PO DAILY
aspirin 81 mg Tablet,Chewable
81 mg PO DAILY Qty: 120 0RF
hydralazine 50 mg tablet
50 mg PO DAILY
Patient Comments:
patient did not realize this was tid but he had only been taking it daily.
acetaminophen [Tylenol Extra Strength] 500 mg Tablet
1,000 mg PO Q6HPRN PRN (Reason: mild pain)
metformin 750 mg Tablet Extended Release 24 Hr
750 mg PO DAILY
amlodipine [Norvasc] 10 mg Tablet
10 mg PO DAILY
rosuvastatin 20 mg Tablet
20 mg PO DAILY 30 Days Qty: 30 0RF
dapagliflozin propanediol 10 mg Tablet
10 mg PO DAILY 30 Days Qty: 30 0RF
clonidine HCl 0.1 mg tablet
0.1 mg PO DAILY 30 Days Qty: 30 0RF
Referrals:
UNKNOWN - PT NOT,INTERVIEWE [Unknown Provider]
Interventions
Interventions:
*Risk Screen - Suicide Last Done: 12/03/24 13:42
*General Assessment Last Done: 12/03/24 11:59
*Neglect/Abuse Screening Last Done: 12/03/24 12:03
*ED- Fall Risk Assessment Last Done: 12/03/24 11:59
*ED COVID-19 Vaccine History Last Done: 12/03/24 11:59
ED-Skin Assessment Last Done: 12/03/24 13:01
Discharge Date and Time
Print Language: LUXEMBOURGISH
[2024-12-03 13:51] LABS: Blood Urea Nitrogen 26 mg/dl (9-20); Calcium 9.2 mg/dl (8.4-10.2); Carbon Dioxide 23 mmol/L (22-30); Chloride 103 mmol/L (98-107); Estimated Creatinine Clearance 110 ml/min; Glucose 170 mg/dl (70-99); Sodium 134 mmol/L (135-145); eGFR > 60.00
--- NOTE | 2024-12-03 13:54 | PHANOTE ---
med rec note- patient explained he stopped his ozempic months ago, also stopped his lantus QHS due to low blood sugar during the hour of sleep.
[2024-12-03 14:00] VITALS: BP 132/102
[2024-12-03] MEDS: VANCOCIN 540 MG IV (14:29)
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
--- NOTE | 2024-12-03 15:15 | W.PN.UPDATE ---
Update Note
Progress Note Update
I personally performed a history and physical exam of the patient and discussed management with the resident. I reviewed the resident's note and agree with the documented findings and plan of care HPI/CC.
59-year-old male who presents to the ER with concerns for worsening of his right foot wound.
Gen: NAD, AAOx3.
Eyes: EOMI, PERRLA, no scleral icterus.
Neck: supple.
CV: RRR, +S1/S2, no m/r/g.
Resp: CTAB, no rales, wheezes, or rhonchi.
Abd: +BS, soft, NT, ND
Skin: No rashes. images reviewed - R foot with necrotic tissue at the site of prior right first toe amputation and extending dorsolaterally over the 2nd and 3rd metatarsal heads. The plantar aspect of the foot with cellulitic changes.
Neuro: CN 2-12 intact, non-focal.
Psych: Normal mood and affect.
R foot necrosis and cellulitis:
-underlying PAD, s/p RLE arteriogram with angioplasty of the R anterior tibial artery 10/21/24
-s/p IV Vanco/Zosyn in ER, continue
-foot Xray done, read pending
-vascular following
-check RLE arterial U/S with ABIs
-c/s podiatry
Other problems:
Essential HTN: cont Norvasc/Clonidine/Hydralazine/HCTZ/Lisinopril
DM2: Hold metformin. cont Farxiga. SSI/accuchecks, check a1c.
HLD: cont statin
Obesity due to excess calories
--- NOTE | 2024-12-03 15:53 | HPS.HSE ---
Family Physician
-
Family Physician: Ramon Dickson MD
Chief Complaint
-
non healing right foot hallux amputation
History of Present Illness
59-year-old male past with history of hypertension, diabetes,PAD presenting to the emergency department today with concerns of worsening skin changes to the right distal foot after being seen by the coal washer today for concerns about infection.
Concerns of worsening gangrene and potential infection to the area due to foul odor, purulent drainage, skin color changes. Had great toe amputation of the right great toe with vascular surgery a month ago. No worsening of pain, fever, chills,
malaise, weight loss.
Medical History
Past Medical History
Past Medical History: Reports HTN, Hypercholesterolemia and IDDM
Additional Past Medical History:
peripheral arterial disease
Past Surgical History: Reports Other
Additional Past Surgical History:
07/01/2024- Left lower extremity arteriogram with selective catheterization of left superficial femoral artery via right common femoral artery puncture. Aníbal De La Garza M.D.
09/01/2024- Duplex assisted attempted cannulation of left foot lateral plantar vein. Duplex assisted cannulation of left posterior tibial vein. Left ankle and foot venography. Aníbal De La Garza M.D.
09/03/2024- Left below the knee amputation Aníbal De La Garza M.D.
10/21/2024- Right lower extremity arteriogram with third order vessel catheterization of right dorsalis pedis artery via left common femoral artery puncture. Balloon angioplasty of right proximal anterior tibial artery severe focal stenosis with 3 mm
angioplasty balloon. Balloon angioplasty of the distal BRADLEY artery with 1.5 mm angioplasty balloon
Social History
Tobacco: Non-smoker
Alcohol: Occasional
Drug: None
Personal:
Living: With Family
Employment: Employed
Family History
Family History: Not pertinent
Allergies / Home Medications
Allergies reflects when Allergies were last updated in [facility].
Home Medications with original date entered in [facility]
Allergy/Medication List:
Allergies
Allergy/AdvReac Type Severity Reaction Status Date / Time
No Known Allergies Allergy Verified 12/03/24 11:27
Home Medications
rosuvastatin 20 mg tablet 20 mg PO DAILY High cholesterol 30 days #30 tabs 09/14/24
clonidine HCl 0.1 mg tablet 0.1 mg PO DAILY Blood pressure 30 days #30 tabs 09/15/24
dapagliflozin propanediol 10 mg tablet 10 mg PO DAILY Diabetes 30 days #30 tabs 09/15/24
hydrochlorothiazide 25 mg tablet 25 mg PO DAILY Fluid Retention/Swelling 10/18/24
lisinopril 40 mg tablet 40 mg PO DAILY Blood pressure 10/21/24
aspirin 81 mg chewable tablet 81 mg PO DAILY #120 tabs 10/22/24
acetaminophen 500 mg tablet (Tylenol Extra Strength) 1,000 mg PO Q6HPRN PRN mild pain 12/03/24
amlodipine 10 mg tablet (Norvasc) 10 mg PO DAILY 12/03/24
hydralazine 50 mg tablet 50 mg PO DAILY Blood pressure 12/03/24
metformin 750 mg tablet,extended release 24 hr 750 mg PO DAILY 12/03/24
Review of Systems
-
History Source: Patient
A 12 point ROS was completed and negative except as noted: Yes
Constitutional: Denies Fever or Chills
Respiratory: Denies Cough or Trouble Breathing
Cardiac: Denies Chest Pain or Palpitations
Abdomen/GI: Denies Abdominal Pain, Nausea, Vomiting, Diarrhea or Constipated
Skin: Reports No Symptoms
Physical Exam
Vital Signs
Vital Signs
Temp Pulse Resp BP Pulse Ox
98.6 F 89 16 132/102 97
12/03/24 11:24 12/03/24 12:06 12/03/24 12:06 12/03/24 14:00 12/03/24 14:00
Physical Exam
General: Well Developed
Respiratory: Clear
Cardiac: S1/S2 and Regular Rhythm
GI: Soft, Non Tender, Non Distended and Normal Bowel Sounds
Musculoskeletal: No Clubbing, No Cyanosis, No Edema and Other (Right foot with hallux amputation site eschar, malodorous, dry gangrene, surrounding area of erythema, right DP and PT pulse by Doppler))
Skin: Warm
Neuro: AO x 3
Psych: Calm
Laboratory Results
-
12/03/24 12:30
12/03/24 12:30
Laboratory Results
Lactic Acid 1.1 mmol/L (0.7-2.0) 12/03/24 12:56
Total Bilirubin Cancelled 12/03/24 12:30
AST Cancelled 12/03/24 12:30
ALT Cancelled 12/03/24 12:30
Alkaline Phosphatase Cancelled 12/03/24 12:30
Data Reviewed
-
Lab Data: Labs Reviewed by me and Discussed with Physician
Impression/Plan
-
R foot necrosis and cellulitis:
-underlying PAD, s/p RLE arteriogram with angioplasty of the R anterior tibial artery 10/21/24
-continue IV vancomycin and Zosyn
-foot Xray done, read pending
-vascular consulted and following
-check RLE arterial U/S with ABIs
-c/s podiatry
- ordered MRI of right lower extremity with contrast
Essential HTN:
- BP 132/102 mmhg, asymptomatic, continue to monitor
- cont Norvasc,Clonidine,Hydralazine,HCTZ, Lisinopril
DM2:
Hold metformin in anticipation
cont Farxiga
SSI/accuchecks
check a1c, most recent is 7.9
glucose is 170 today
HLD:
cont statin
DVT ppx- lovenox 40 mg
[2024-12-03 18:01] VITALS: BMI 31.6
[2024-12-03 18:11] VITALS: BP 155/91
--- NOTE | 2024-12-03 18:36 | PHA.VAN.IN ---
Addendum entered and electronically signed by Laquita Rodríguez Romel 12/04/24 07:54:
Agree with assessment and plan.
Patient had prolonged half-life during prior admission.
Original Note:
Assessment
- Assessment
Renal Function: Appears similar to baseline
- Previous Dosing Experience
Previous Regimen: 1250mg q12h
Date of Regimen: 10/22-10/25/2024
Provided Trough of: 20.2
Provided AUC of: 657
Patient's SCR is: Similar to previous dosing experience
Patient's weight is: Decreased compared to previous dosing experience (111.13 kg -> 102.60 kg)
Plan
- Plan
Initial / Loading Dose: received 2000mg load at 1429 today
Maintenance Regimen: dosing by level
Monitoring: random 12/04 0600
Pharmacokinetics Vancomycin I
- -
Patient Age: 59
Patient Sex: Male
Vancomycin Day #: 1
Indication: Skin And Soft Tissue
Requesting Provider: Dr. Owens (resident)
Pertinent Antimicrobial Allergies:
NKDA
Height / Weight:
Height 5 ft 11 in
Actual Weight 102.603 kg
Pertinent Past Medical History: T2DM, PAD
- Vital Signs / Lab Results
Temp Pulse Resp BP Pulse Ox
98.5 F 94 16 155/91 99
12/03/24 18:11 12/03/24 18:11 12/03/24 18:11 12/03/24 18:11 12/03/24 18:12
Lab Results - Hematology
12/03/24
12:30
WBC 9.6
Lab Results - Chemistry
12/03/24
12:30
BUN 26 H
Creatinine 0.9
Estimated Creat Clear 110
Albumin Cancelled
12/03/24
12:56
Lactic Acid 1.1
Microbiology Results
12/03/24 12:30 Gram Stain - Preliminary
Foot - Right
[2024-12-03] MEDS: NSS 1000 IV (18:37)
[2024-12-03] MEDS: LOVENOX 40 MG SC (18:37)
--- NOTE | 2024-12-03 19:43 | PTCARENOTE ---
pt brought up from ED around 1745 to this RN. pt with potential infection to R greater toe amputation site. amputation done in october as well as a L BKA done 08/2024. pt amp site redressed by this RN and L BKA assessed. Air cushion placed under stump
at this time. pt requesting not to have anything under R foot for now. pain 6/10 when arriving. prn added to MAR for moderate pain. pt is aaox3, continent of B&B. states he uses a wheelchair at baseline at home due to not currently being able to put
pressure on the R foot. was using a rollader a point in time. NSS going at 100ml/hr through L AC.
[2024-12-03] MEDS: MORPHINE SULFATE 1 MG IV (20:23)
[2024-12-03 21:35] LABS: Glucose - Point of Care 135 mg/dl (70-99)
[2024-12-03 23:24] VITALS: BP 148/75
[2024-12-04] MEDS: MORPHINE SULFATE 1 MG IV ×4 (02:01→21:05)
[2024-12-04] MEDS: ZOSYN 100 IV ×4 (02:02→21:00)
[2024-12-04 06:00] VITALS: BMI 31.8
[2024-12-04] MEDS: NSS 1000 IV (06:37)
[2024-12-04 06:59] LABS: Hematocrit 24.8 % (39.0-52.0); Hemoglobin 8.0 g/dL (13.0-18.0); Mean Corp Hgb Conc. 32.3 g/dL (33.0-37.0); Mean Corpuscular Volume 87.6 fL (80.0-94.0); Nucleated Red Blood Cells % 0 % (-); Platelet Count 441 10^3/uL (130-400); Red Cell Dist. Width 13.7 % (11.5-14.5)
[2024-12-04 07:00] VITALS: BP 137/73
[2024-12-04 07:28] LABS: ALT (SGPT) 24 U/L (0-50); AST (SGOT) 14 U/L (17-59); Albumin 3.1 g/dl (3.5-5.0); Alkaline Phosphatase 90 U/L (38-126); Blood Urea Nitrogen 19 mg/dl (9-20); Calcium 9.2 mg/dl (8.4-10.2); Carbon Dioxide 25 mmol/L (22-30); Chloride 106 mmol/L (98-107); Estimated Creatinine Clearance 110 ml/min; Glucose 101 mg/dl (70-99); HDL Cholesterol 34 mg/dl; LDL Cholesterol, Calculated 61 mg/dl; Magnesium 1.8 mg/dl (1.6-2.3); Potassium 4.5 mmol/L (3.5-5.1); Sodium 138 mmol/L (135-145); Total Protein 5.9 g/dl (6.3-8.2); Very Low Density Lipoprotein 23 mg/dl (0-30); eGFR > 60.00
[2024-12-04 07:34] LABS: Glucose - Point of Care 115 mg/dl (70-99)
--- NOTE | 2024-12-04 07:48 | W.PN.UPDATE ---
Update Note
Progress Note Update
I saw and evaluated the patient. I reviewed the resident�s note and agree with findings and plan as documented in the resident�s note.
Gen: NAD, AAOx3.
Eyes: EOMI, PERRLA, no scleral icterus.
Neck: supple.
CV: remains RRR, +S1/S2, no m/r/g.
Resp: remains CTAB, no rales, wheezes, or rhonchi.
Abd: +BS, soft, NT, ND
Skin: No rashes. R foot with C/D/I dressing.
Neuro: CN 2-12 intact, non-focal.
Psych: Normal mood and affect.
RLE art U/S with BARRY: Unobtainable right ankle brachial indices. The toe brachial index was unobtainable secondary to bandage. There are multiphasic waveforms from the common femoral artery through the popliteal artery. No flow-limiting focal
stenosis is identified. At duplex imaging, mixed monophasic and multiphasic waveforms in the anterior tibial artery. The Doppler waveforms at the ankle are multiphasic.
R foot necrosis and cellulitis:
-underlying PAD, s/p RLE arteriogram with angioplasty of the R anterior tibial artery 10/21/24
-s/p IV Vanco/Zosyn in ER, continue
-foot Xray done, read pending
-vascular following
-RLE arterial U/S with ABIs above
-podiatry c/s placed 12/03/24
Other problems:
Essential HTN: cont Norvasc/Clonidine/Hydralazine/HCTZ/Lisinopril
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 cont Farxiga. SSI/accuchecks, check a1c.
HLD: cont statin
Obesity due to excess calories
FULL/Lovenox
[2024-12-04 07:55] LABS: TSH 0.54 uIU/ml (0.47-4.68)
--- NOTE | 2024-12-04 07:55 | PHA.VAN.FU ---
Addendum entered and electronically signed by Laquita Rodríguez RPH 12/10/24 10:03:
Correction: dose was given day of supratherapeutic trough and was unable to calculate half-life with random level; therefore, half-life was not 54.2H.
Patient had random level 14.9 about 22.5H after previous dose of 1250mg
Original Note:
Vancomycin Assessment / Plan
- Assessment
Renal Function: Stable
WBC's are: WNL
In the past 24 hrs, patient has been: Afebrile
Concomitant Antimicrobials: piperacillin/tazobactam
- Assessment - Therapeutic Drug Monitoring
Random Level: 10.5 - drawn ~16H after 2g loading dose
During prior dosing experience last month, patient did not follow population PK and CrCl was not predictive of vanc clearance
Half-life with peak/trough 12.9H --> increased to 54.2 with random level next day
- Dosing Plan
Dosing by Level: Re-dose today (Vanc 1500mg)
Will continue to follow dose by level for now as patient may be slow to accumulate based on prior experience
- Monitoring Plan
Random Level: 12/05 0600
- Follow Up
Pharmacy will continue to follow.
Vancomycin Follow UP
- -
Patient Age: 59
Patient Sex: Male
Vancomycin Day #: 2
Indication: Skin And Soft Tissue
Requesting Provider: Dr. Owens (resident)
Pertinent Antimicrobial Allergies:
NKDA
Height / Weight:
Height 5 ft 11 in
Actual Weight 103.51 kg
Pertinent Past Medical History: T2DM, PAD
- Vital Signs / Lab Results
Temp Pulse Resp BP Pulse Ox
99.1 F 89 16 148/75 99
12/03/24 23:24 12/03/24 23:24 12/03/24 23:24 12/03/24 23:24 08/23/25 00:08
Lab Results - Hematology
12/03/24 12/04/24
12:30 06:36
WBC 9.6 9.9
Lab Results - Chemistry
12/03/24 12/04/24
12:30 06:36
BUN 26 H 19
Creatinine 0.9 0.9
Estimated Creat Clear 110 110
Albumin Cancelled 3.1 L
12/03/24
12:56
Lactic Acid 1.1
Microbiology Results
12/03/24 12:30 Gram Stain - Preliminary
Foot - Right
Therapeutic Drug Monitoring
Random Vancomycin 10.5 ug/ml 12/04/24 06:36
[2024-12-04] MEDS: ZESTRIL 40 MG PO (08:32)
[2024-12-04] MEDS: FARXIGA 10 MG PO (08:32)
[2024-12-04] MEDS: ORETIC 25 MG PO (08:32)
[2024-12-04] MEDS: NORVASC 10 MG PO (08:32)
[2024-12-04] MEDS: LOW STRENGTH ASPIRIN 81 MG PO (08:32)
[2024-12-04] MEDS: CRESTOR 20 MG PO (08:32)
[2024-12-04] MEDS: APRESOLINE 50 MG PO (08:32)
[2024-12-04] MEDS: CATAPRES 0.1 MG PO (08:33)
--- NOTE | 2024-12-04 09:41 | W.PN.HOSP.TC ---
Today's Communication/Plan
-
Continue IV Vanco/Zosyn
Pending foot x-ray, MRI foot
Vascular surgery and podiatry consulted
Assessment / Plan
Assessment / Plan
59-year-old male past with history of hypertension, diabetes,PAD presenting to the emergency department today with concerns of worsening skin changes to the right distal foot after being seen by the housing case manager today for concerns about infection.
Concerns of worsening gangrene and potential infection to the area due to foul odor, purulent drainage, skin color changes. Had great toe amputation of the right great toe with vascular surgery a month ago. No worsening of pain, fever, chills,
malaise, weight loss.
Ultrasound right lower extremity with ankle-brachial indices 12/03/2024: Unobtainable right ankle brachial indices. The toe brachial index was unobtainable secondary to bandage. There are multiphasic waveforms from the common femoral artery through
the popliteal artery. No flow-limiting focal stenosis is identified. At duplex imaging, mixed monophasic and multiphasic waveforms in the anterior tibial artery. The Doppler waveforms at the ankle are multiphasic.
Assessment/plan:
# Right foot necrosis
# Right foot cellulitis
# History of peripheral arterial disease
S/p right lower extremity arteriogram with angioplasty of right anterior tibial artery 10/21/2024
Right lower extremity ultrasound as above.
� Continue IV Vanco/Zosyn that was started in the ER yesterday 12/03/2024.
� XR foot performed, read is pending.
� MRI right lower extremity ordered 12/03/2024.
� Vascular surgery and podiatry were consulted 12/03/2024. Yet to see patient.
#Essential hypertension
� BP 137/73, asymptomatic. Will continue to monitor BP.
� Continue Norvasc, clonidine, hydralazine, lisinopril and hydrochlorothiazide
#Type 2 diabetes mellitus
�HbA1c ordered 12/03/2024, pending
� Holding metformin.
� Continue Farxiga.
�Continue insulin sliding scale, Accu-Cheks.
#Hyperlipidemia
�Continue rosuvastatin 20 Mg PO daily
#Obesity due to excess calories
DVT prophylaxis: Lovenox
CODE STATUS: Full code
Anticipated Discharge: > 48 hours
Subjective/Interval History
-
Date of Service: December 04, 2024
Upon evaluation of patient today, patient states he had no new symptoms overnight.
Objective Data
-
Labs:
Laboratory Results
12/04/24
06:36
WBC 9.9
Hgb 8.0 L
Hct 24.8 L
Plt Count 441 H
Sodium 138
Potassium 4.5
Chloride 106
Carbon Dioxide 25
BUN 19
Creatinine 0.9
Glucose 101 H
Calcium 9.2
Total Bilirubin 0.3
AST 14 L
ALT 24
Alkaline Phosphatase 90
Vital Signs:
Vital Signs
Temp Pulse Resp BP Pulse Ox
98.8 F 84 14 137/73 98
12/04/24 07:00 12/04/24 07:00 12/04/24 07:00 12/04/24 08:32 12/04/24 07:00
I&O
12/03/24 12/04/24 12/05/24
06:59 06:59 06:59
Intake Total 1680 / 1680
Output Total 1550 / 1550
Balance 130 / 130
Review of Systems
-
History Source: Patient
Constitutional: Reports No Symptoms
EENT: Reports No Symptoms Reported
Respiratory: Reports No Symptoms
Cardiac: Reports No Symptoms
Abdomen/GI: Reports No Symptoms
Genitourinary: Reports No Symptoms
Musculoskeletal: Reports Other (Foot pain)
Neuro: Reports No Symptoms
Endocrine: Reports No Symptoms
Hematologic / Lymphatic: Reports No Symptoms
Physical Exam
-
General: Well Developed, Well Nourished, No Apparent Distress, Comfortable and Conversant
HEENT: Normocephalic, Atraumatic, Moist Mucous Membranes and Anicteric
Respiratory: Clear to Auscultation
Cardiac: Regular Rhythm and S1/S2
GI: Soft, Nontender, Nondistended, Normal Bowel Sounds and No Hepatosplenomegaly
Musculoskeletal: No Clubbing, No Cyanosis, No Edema and Other (Right foot: Dressing in place, clean/dry/intact.)
Neuro: Awake, AO x 3 and Nonfocal/Grossly Intact
Psych: Calm
Data Reviewed
-
Diagnostic Radiology: Report Reviewed by me and Discussed with Physician
Ultrasound: Report Reviewed by me and Discussed with Physician
Labs: Discussed with Physician and Discussed with Nurse
Old Records: Reviewed
[2024-12-04] MEDS: VANCOCIN 530 MG IV (10:00)
[2024-12-04 10:16] LABS: Glycohemoglobin (HgbA1c) 7.7 % (4.0-5.6)
--- NOTE | 2024-12-04 10:25 | W.PN.VS ---
Today's Communication / Plan
-
no changes this weekend
Assessment/Plan
-
Assessment: 59-year-old male with peripheral arterial disease status post left BKA and now with nonhealing right hallux amputation site concerning for infection.
c/w iv abx
operative planning decision making in process pending non invasvive imaging
Subjective Data
-
Date of Service: December 04, 2024
seen and examined at bedside. resting comfortably
Objective Data
-
Vital Signs
Temp Pulse Resp BP Pulse Ox
98.8 F 84 14 137/73 98
12/04/24 07:00 12/04/24 07:00 12/04/24 07:00 12/04/24 08:32 12/04/24 07:00
Intake and Output
12/03/24 12/04/24 12/05/24
06:59 06:59 06:59
Intake Total 1680 / 1680
Output Total 1550 / 1550
Balance 130 / 130
Intake:
Oral fluids 480 / 480
IV fluids (Total) 1000 / 1000
IV piggybacks 200 / 200
Output:
Urine, Voided 1550 / 1550
Lab Results
12/04/24 06:36
12/04/24 06:36
Calcium 9.2 mg/dl (8.4-10.2) 12/04/24 06:36
Magnesium 1.8 mg/dl (1.6-2.3) 12/04/24 06:36
Total Bilirubin 0.3 mg/dl (0.2-1.3) 12/04/24 06:36
AST 14 U/L (17-59) L 12/04/24 06:36
ALT 24 U/L (0-50) 12/04/24 06:36
Alkaline Phosphatase 90 U/L (38-126) 12/04/24 06:36
Total Protein 5.9 g/dl (6.3-8.2) L 12/04/24 06:36
Albumin 3.1 g/dl (3.5-5.0) L 12/04/24 06:36
Physical Exam
-
General: No Apparent Distress
HEENT: Normocephalic, Anicteric and Atraumatic
Respiratory: Non Labored Respirations
Cardiac: Negative JVD
GI: Soft, Non Tender and Non Distended
Musculoskeletal: Edema (Trace edema bilateral lower extremities)
Skin: Other (Right foot with hallux amputation site eschar, malodorous, dry gangrene, surrounding area of erythema, right DP and PT pulse by Doppler)
Neuro: AO x 3
--- NOTE | 2024-12-04 11:04 | CM ---
Reviewed the chart notes and spoke with the patient at the bedside. The patient resides in a second floor apartment with mother and son. Elevator access available. The patient has a rolling walker, wheelchair, and shower chair. The patient has
had VN in the past, but can not recall name of agency. No SNF in past. The patient confirmed his [facility] of choice [facility]. CM continues to be available to patient/family and is monitoring medical plan for needs at discharge.
Plan: Discharge plans will depend on the patient's progress.
--- NOTE | 2024-12-04 11:30 | W.CS.POD ---
Consult Summary - Podiatry
-
This is a 59-year-old male known to me from last hospital admission had right partial hallux amputation due to gangrenous changes. HE developed necrotic changes at the surgical site, He has diabetic small vessel disease with recent history of left
lower extremity amputation. Patient had endovascular intervention by Dr. De La Garza in October 2024. He was seen in as an Out patient and noted to have Rt foot drainage with foul odor so I have sent him for further management with IV antibiotics and
surgical debridement. Patient currently in no acute distress, no fever, no chills, reduced drainage from the right foot white blood cell count at 9
Exam right foot Non palpable pedal pulses.
Mild edema to right foot
Right hallux amputation site with well marked demarcated dry necrotic tissue, there is no foul odor, there is scant purulent drainage
No crepitus felt right foot no exposed bone
A/P: Right foot dry necrotic ulcer
Severe diabetic small vessel disease
S/P Rt partial hallux amputation 10/22/24
H/O Left lower leg amputation in 2024
Plan continue IV antibiotics
Reviewed non invasive vascular studies form 12/03/24: Unobtainable right ankle brachial indices. The toe brachial index was unobtainable secondary to bandage. There are multiphasic waveforms from the common femoral artery through the popliteal
artery. No flow-limiting focal stenosis is identified. At duplex imaging, mixed monophasic and multiphasic waveforms in the anterior tibial artery. The Doppler waveforms at the ankle are multiphasic.
I have scheduled him for Rt foot debridement 12/04/24.
I have explained the procedure to the patient and discussed reinfection, necrosis, nonhealing and losing the lower limb or life discussed
Patient understands and agrees to proceed with debridement of the right foot and possibly any bone resection, no guarantees given to save his limb or life
Patient gave consent to the procedure.
Discussed case with hospitalist service for medical clearance
The podiatry will follow-up
[2024-12-04 11:35] LABS: Glucose - Point of Care 120 mg/dl (70-99)
--- NOTE | 2024-12-04 11:54 | W.PN.UPDATE ---
Update Note
Progress Note Update
Patient is medically optimized for planned right foot debridement tomorrow. The benefit greatly outweighs the risk. No further preoperative testing recommended at this time.
[2024-12-04] MEDS: MORPHINE SULFATE 0.5 MG IV (11:59)
[2024-12-04 15:00] VITALS: BP 134/71
[2024-12-04 16:43] LABS: Glucose - Point of Care 99 mg/dl (70-99)
[2024-12-04] MEDS: LOVENOX 40 MG SC (17:22)
[2024-12-04 23:16] LABS: Glucose - Point of Care 109 mg/dl (70-99)
[2024-12-04 23:38] VITALS: BP 136/78
[2024-12-05] VITALS (11 sets, daily range): BP systolic 102–172; BP diastolic 62–89
[2024-12-05] MEDS: MORPHINE SULFATE 1 MG IV ×4 (01:25→22:08)
[2024-12-05] MEDS: ZOSYN 100 IV ×4 (01:32→19:47)
[2024-12-05 05:33] LABS: Glucose - Point of Care 81 mg/dl (70-99)
--- NOTE | 2024-12-05 07:05 | PHA.VAN.FU ---
Vancomycin Assessment / Plan
- Assessment
Renal Function: No New Labs Today
In the past 24 hrs, patient has been: Afebrile
Concomitant Antimicrobials: piperacillin/tazobactam
- Assessment - Therapeutic Drug Monitoring
Random Level: 10.3 - drawn ~20H after previous dose of 1500mg
- Dosing Plan
Dosing by Level: Re-dose today (Vanc 1500mg)
Dosing Comments: level stable - re-dose today and follow trend
- Monitoring Plan
Random Level: 12/06 06
- Follow Up
Pharmacy will continue to follow.
Vancomycin Follow UP
- -
Patient Age: 59
Patient Sex: Male
Vancomycin Day #: 3
Indication: Skin And Soft Tissue
Requesting Provider: Dr. Owens (resident)
Pertinent Antimicrobial Allergies:
NKDA
Height / Weight:
Height 5 ft 11 in
Actual Weight 103.51 kg
Pertinent Past Medical History: T2DM, PAD
- Vital Signs / Lab Results
Temp Pulse Resp BP Pulse Ox
99.5 F 85 16 136/78 98
12/04/24 23:38 12/04/24 23:38 12/04/24 23:38 12/04/24 23:38 12/04/24 23:38
Lab Results - Hematology
12/03/24 12/04/24
12:30 06:36
WBC 9.6 9.9
Lab Results - Chemistry
12/03/24 12/04/24
12:30 06:36
BUN 26 H 19
Creatinine 0.9 0.9
Estimated Creat Clear 110 110
Albumin Cancelled 3.1 L
12/03/24
12:56
Lactic Acid 1.1
Microbiology Results
12/03/24 12:30 Blood Culture - Preliminary
Blood/Venous No Growth in 24 hours- Final report to follow
12/03/24 13:00 Blood Culture - Preliminary
Blood/Venous No Growth in 24 hours- Final report to follow
12/03/24 12:30 Wound Culture - Preliminary
Foot - Right Gram Stain - Preliminary
Therapeutic Drug Monitoring
Random Vancomycin 10.3 ug/ml 12/05/24 06:16
--- NOTE | 2024-12-05 08:00 | W.PN.HOSP.TC ---
Today's Communication/Plan
-
OR today
Assessment / Plan
Assessment / Plan
59-year-old male past with history of hypertension, diabetes,PAD presenting to the emergency department today with concerns of worsening skin changes to the right distal foot after being seen by the zinc chloride operator today for concerns about infection.
Concerns of worsening gangrene and potential infection to the area due to foul odor, purulent drainage, skin color changes. Had great toe amputation of the right great toe with vascular surgery a month ago. No worsening of pain, fever, chills,
malaise, weight loss.
Ultrasound right lower extremity with ankle-brachial indices 12/03/2024: Unobtainable right ankle brachial indices. The toe brachial index was unobtainable secondary to bandage. There are multiphasic waveforms from the common femoral artery through
the popliteal artery. No flow-limiting focal stenosis is identified. At duplex imaging, mixed monophasic and multiphasic waveforms in the anterior tibial artery. The Doppler waveforms at the ankle are multiphasic.
XR right foot: postsurgical changes to the right great toe.
Assessment/plan:
# Right foot necrosis
# Right foot cellulitis
# History of peripheral arterial disease
S/p right lower extremity arteriogram with angioplasty of right anterior tibial artery 10/21/2024
XR right foot as above
Right lower extremity ultrasound as above.
� Continue IV Vanco/Zosyn that was started in the ER 12/03/2024.
� Vascular surgery and podiatry were consulted 12/03/2024. OR today 12/05/24 for debridement.
# Essential hypertension
� Stable. Will continue to monitor BP.
� Continue Norvasc, clonidine, hydralazine, lisinopril and hydrochlorothiazide
# Type 2 diabetes mellitus
�HbA1c 7.7 on 12/03/24.
� Holding metformin.
� Continue Farxiga.
�Continue insulin sliding scale, Accu-Cheks.
# Hyperlipidemia
� Continue rosuvastatin 20 Mg PO daily
#Obesity due to excess calories
DVT prophylaxis: Lovenox
CODE STATUS: Full code
Anticipated Discharge: > 48 hours
Subjective/Interval History
-
Date of Service: December 05, 2024
Patient feels well. No new complaints.
Objective Data
-
Labs:
Laboratory Results
12/05/24
10:04
WBC 11.1 H
Hgb 8.5 L
Hct 26.3 L
Plt Count 491 H
Sodium 137
Potassium 4.3
Chloride 104
Carbon Dioxide 26
BUN 14
Creatinine 1.0
Glucose 82
Calcium 9.4
Total Bilirubin 0.4
AST 15 L
ALT 23
Alkaline Phosphatase 90
Vital Signs:
Vital Signs
Temp Pulse Resp BP Pulse Ox
99.4 F 90 18 140/78 98
12/05/24 07:00 12/05/24 08:33 12/05/24 07:00 12/05/24 08:33 12/05/24 10:09
I&O
12/04/24 12/05/24 12/06/24
06:59 06:59 06:59
Intake Total 4330 / 4330
Output Total 5750 / 5750
Balance -1420 / -1420
Review of Systems
-
History Source: Patient
Constitutional: Reports No Symptoms
EENT: Reports No Symptoms Reported
Respiratory: Reports No Symptoms
Cardiac: Reports No Symptoms
Abdomen/GI: Reports No Symptoms
Genitourinary: Reports No Symptoms
Musculoskeletal: Reports Other (Foot pain)
Neuro: Reports No Symptoms
Endocrine: Reports No Symptoms
Hematologic / Lymphatic: Reports No Symptoms
Physical Exam
-
General: Well Developed, Well Nourished, No Apparent Distress, Comfortable and Conversant
HEENT: Normocephalic, Atraumatic, Moist Mucous Membranes and Anicteric
Respiratory: Clear to Auscultation
Cardiac: Regular Rhythm and S1/S2
GI: Soft, Nontender, Nondistended, Normal Bowel Sounds and No Hepatosplenomegaly
Musculoskeletal: No Clubbing, No Cyanosis, No Edema and Other (Right foot: Dressing in place, clean/dry/intact.)
Neuro: Awake, AO x 3 and Nonfocal/Grossly Intact
Psych: Calm
Data Reviewed
-
Labs: Labs Reviewed by me and Discussed with Physician
Old Records: Reviewed
--- NOTE | 2024-12-05 08:02 | W.PN.UPDATE ---
Update Note
Progress Note Update
I saw and evaluated the patient. I reviewed the resident�s note and agree with findings and plan as documented in the resident�s note.
No new complaints.
Gen: NAD, AAOx3.
Eyes: EOMI, PERRLA, no scleral icterus.
Neck: supple.
CV: continues to remain RRR, +S1/S2, no m/r/g.
Resp: continues to remain CTAB, no rales, wheezes, or rhonchi.
Abd: +BS, soft, NT, ND
Skin: No rashes. remains R foot with C/D/I dressing.
Neuro: CN 2-12 intact, non-focal.
Psych: Normal mood and affect.
RLE art U/S with BARRY: Unobtainable right ankle brachial indices. The toe brachial index was unobtainable secondary to bandage. There are multiphasic waveforms from the common femoral artery through the popliteal artery. No flow-limiting focal
stenosis is identified. At duplex imaging, mixed monophasic and multiphasic waveforms in the anterior tibial artery. The Doppler waveforms at the ankle are multiphasic.
R foot Xray: Postsurgical change of the right great toe.
R foot necrosis and cellulitis:
-underlying PAD, s/p RLE arteriogram with angioplasty of the R anterior tibial artery 10/21/24
-cont IV Vanco/Zosyn
-vascular following
-RLE arterial U/S with ABIs above
-podiatry to take pt to OR today for debridement
Other problems:
Essential HTN: cont Norvasc/Clonidine/Hydralazine/HCTZ/Lisinopril
DM2: a1c 7.7%, Holding [employer] metformin. cont Farxiga. SSI/accuchecks
HLD: cont statin
Obesity due to excess calories
FULL/Lovenox
[2024-12-05] MEDS: NORVASC 10 MG PO (08:32)
[2024-12-05] MEDS: CRESTOR 20 MG PO (08:33)
[2024-12-05] MEDS: CATAPRES 0.1 MG PO (08:33)
[2024-12-05] MEDS: ZESTRIL 40 MG PO (08:33)
[2024-12-05] MEDS: ORETIC 25 MG PO (08:33)
[2024-12-05] MEDS: LOW STRENGTH ASPIRIN 81 MG PO (08:33)
[2024-12-05] MEDS: APRESOLINE 50 MG PO (08:44)
[2024-12-05] MEDS: FARXIGA 10 MG PO (08:44)
[2024-12-05] MEDS: VANCOCIN 530 MG IV (09:23)
[2024-12-05 10:10] LABS: Hematocrit 26.3 % (39.0-52.0); Hemoglobin 8.5 g/dL (13.0-18.0); Mean Corp Hgb Conc. 32.3 g/dL (33.0-37.0); Mean Corpuscular Volume 88.9 fL (80.0-94.0); Nucleated Red Blood Cells % 0 % (-); Platelet Count 491 10^3/uL (130-400); Red Cell Dist. Width 13.8 % (11.5-14.5)
[2024-12-05 10:19] LABS: ALT (SGPT) 23 U/L (0-50); AST (SGOT) 15 U/L (17-59); Albumin 3.3 g/dl (3.5-5.0); Alkaline Phosphatase 90 U/L (38-126); Blood Urea Nitrogen 14 mg/dl (9-20); Calcium 9.4 mg/dl (8.4-10.2); Carbon Dioxide 26 mmol/L (22-30); Chloride 104 mmol/L (98-107); Estimated Creatinine Clearance 99 ml/min; Glucose 82 mg/dl (70-99); Magnesium 1.9 mg/dl (1.6-2.3); Potassium 4.3 mmol/L (3.5-5.1); Sodium 137 mmol/L (135-145); Total Protein 6.2 g/dl (6.3-8.2); eGFR > 60.00
--- NOTE | 2024-12-05 12:43 | W.SUR.POST ---
Surgical Immediate Post Op
Note
Pre Op Diagnosis: Right foot large necrotic ulcer
Post Op Diagnosis: Same as above
Procedure Performed: Right foot necrotic tissue debridement with resection of base of the proximal phalanx and partial 1st metatarsal with partial closure.
Primary Surgeon: Dr. Heath
Secondary Surgeons: None
Anesthesia: MAC with local block
Estimated Blood Loss: 5cc's
Fluids: None
Drains/Shunts: none
Specimens/Cultures: Bone form Right 1st Ray
Doppler/Duplex/Angio (Y/N): N
Complications: None
Operative Findings: Scant blood flow from surgical flaps
patient in PACU with intact vascular status to Rt foot and stable vital signs
[2024-12-05 12:49] LABS: Glucose - Point of Care 77 mg/dl (70-99)
--- NOTE | 2024-12-05 13:39 | PTCARENOTE ---
Pt post op right foot debridement. vs documented. no s/s of distress noted. pt drowsy, but arousable. Plan of care ongoing.
[2024-12-05] MEDS: LOVENOX 40 MG SC (17:12)
[2024-12-05 17:34] LABS: Glucose - Point of Care 92 mg/dl (70-99)
[2024-12-05] MEDS: DILAUDID 0.5 MG IV ×2 (19:47→23:59)
[2024-12-05 21:12] LABS: Glucose - Point of Care 107 mg/dl (70-99)
[2024-12-05] MEDS: TYLENOL 1000 MG PO (22:41)
[2024-12-06] VITALS (8 sets, daily range): BP systolic 108–145; BP diastolic 58–78; PULSE 89
[2024-12-06] MEDS: ZOSYN 100 IV ×2 (01:30→08:41)
[2024-12-06] MEDS: DILAUDID 0.5 MG IV ×2 (06:00→11:59)
[2024-12-06 07:51] LABS: Glucose - Point of Care 116 mg/dl (70-99)
[2024-12-06] MEDS: NOVOLOG FLEXPEN-LOW RESISTANCE SC ×2 (08:37→17:23)
[2024-12-06] MEDS: FARXIGA 10 MG PO (08:40)
[2024-12-06] MEDS: CRESTOR 20 MG PO (08:40)
[2024-12-06] MEDS: CATAPRES 0.1 MG PO (08:40)
[2024-12-06] MEDS: ORETIC 25 MG PO (08:40)
[2024-12-06] MEDS: APRESOLINE 50 MG PO (08:41)
[2024-12-06] MEDS: LOW STRENGTH ASPIRIN 81 MG PO (08:41)
[2024-12-06] MEDS: NORVASC 10 MG PO (08:41)
[2024-12-06] MEDS: SANTYL OINTMENT 1 APPLIC TOPICAL (08:41)
[2024-12-06] MEDS: ZESTRIL 40 MG PO (08:41)
[2024-12-06 09:04] LABS: Blood Urea Nitrogen 18 mg/dl (9-20); Calcium 9.7 mg/dl (8.4-10.2); Carbon Dioxide 25 mmol/L (22-30); Chloride 100 mmol/L (98-107); Estimated Creatinine Clearance 90 ml/min; Glucose 108 mg/dl (70-99); Potassium 4.6 mmol/L (3.5-5.1); Sodium 134 mmol/L (135-145); eGFR > 60.00
[2024-12-06] MEDS: TYLENOL 1000 MG PO ×2 (10:38→17:14)
[2024-12-06] MEDS: ROXICODONE 5 MG PO ×3 (10:39→23:16)
--- NOTE | 2024-12-06 10:41 | PHA.VAN.FU ---
Vancomycin Assessment / Plan
- Assessment
Renal Function: Stable
In the past 24 hrs, patient has been: Afebrile
Concomitant Antimicrobials: Zosyn 4.5 gram IV q6h
- Assessment - Therapeutic Drug Monitoring
Random Level: 9.9 (12/06 at 7:58 AM) - ~22 hours after 1500 mg dose
- Dosing Plan
Dosing by Level: Re-dose today (Vancomycin 1500 mg IV x 1 dose)
If Scr remains stable, consider scheduling vancomycin 1500 mg q24h
- Monitoring Plan
Random Level: 12/07 06:00
- Follow Up
Pharmacy will continue to follow.
Vancomycin Follow UP
- -
Patient Age: 59
Patient Sex: Male
Vancomycin Day #: 4
Indication: Skin And Soft Tissue
Requesting Provider: Dr. Owens (resident)
Pertinent Antimicrobial Allergies:
NKDA
Height / Weight:
Height 5 ft 11 in
Actual Weight 103.51 kg
Pertinent Past Medical History: T2DM, PAD
- Vital Signs / Lab Results
Temp Pulse Resp BP Pulse Ox
99.2 F 89 16 145/78 97
12/06/24 07:51 12/06/24 07:51 12/06/24 07:51 12/06/24 08:40 12/06/24 07:51
Lab Results - Hematology
12/03/24 12/04/24 12/05/24
12:30 06:36 10:04
WBC 9.6 9.9 11.1 H
Lab Results - Chemistry
12/03/24 12/04/24 12/05/24
12:30 06:36 10:04
BUN 26 H 19 14
Creatinine 0.9 0.9 1.0
Estimated Creat Clear 110 110 99
Albumin Cancelled 3.1 L 3.3 L
12/06/24
07:58
BUN 18
Creatinine 1.1
Estimated Creat Clear 90
Albumin
12/03/24
12:56
Lactic Acid 1.1
Microbiology Results
12/05/24 13:04 Gram Stain - Preliminary
Foot - Right
12/03/24 12:30 Blood Culture - Preliminary
Blood/Venous No Growth in 48 hours- Final report to follow
12/03/24 13:00 Blood Culture - Preliminary
Blood/Venous No Growth in 48 hours- Final report to follow
12/03/24 12:30 Wound Culture - Final
Foot - Right Gram Stain - Final
Therapeutic Drug Monitoring
Random Vancomycin 9.9 ug/ml 12/06/24 07:58
[2024-12-06 11:03] LABS: Hematocrit 26.6 % (39.0-52.0); Hemoglobin 8.5 g/dL (13.0-18.0); Mean Corp Hgb Conc. 32.0 g/dL (33.0-37.0); Mean Corpuscular Volume 89.3 fL (80.0-94.0); Platelet Count 511 10^3/uL (130-400); Red Cell Dist. Width 13.7 % (11.5-14.5)
--- NOTE | 2024-12-06 11:41 | CM ---
Patient seen at bedside on . Patient states that he will consider discharge to a SNF and he indicated that he would want to talk to his family. CM provided PAC data and will send referrals at family/patient choice. CM will continue to follow
for discharge planning needs.
Plan; SNF; pending bed availability/patient choice
[2024-12-06] MEDS: VANCOCIN 530 MG IV (11:58)
[2024-12-06 12:02] LABS: Glucose - Point of Care 172 mg/dl (70-99)
[2024-12-06] MEDS: NOVOLOG FLEXPEN-LOW RESISTANCE 1 UNITS SC (12:07)
--- NOTE | 2024-12-06 13:08 | W.PN.HOSP.TC ---
Today's Communication/Plan
-
IV antibiotics. Pain control. ID consult
Assessment / Plan
Assessment / Plan
Physical exam:
General: Acutely ill
HEENT: Normocephalic, Atraumatic and Moist Mucous Membranes
Respiratory: Clear to Auscultation; Negative Wheezes, Rales or Rhonchi
Cardiac: Regular Rhythm and S1/S2
GI: Soft, Nontender and Nondistended
Musculoskeletal: No Clubbing, No Cyanosis. Right foot wrapped and C/D/I wound
Neuro: Awake, Alert and Oriented, no neurological deficit
Psych: Calm
A/P:
Right foot cellulitis and necrosis in the setting of PVD, diabetes mellitus, and resection of the base of the proximal phalanx and partial first metatarsal with partial closure:
Continue IV antibiotics, Zosyn and vancomycin
ID consult today-discussed with ID via [place] text
Podiatry did debridement yesterday and cultures taken
Blood cultures no growth
Follow-up podiatry and vascular recommendations
Adjust pain medications since not [id number] Tylenol scheduled, add oxycodone for moderate pain, continue Dilaudid for severe. Reevaluate over the next 24 hours if up dose is required.
PT OT eval ordered today
Cancel MRI foot since he went for surgery yesterday
Repeat BMP today especially while on the combo of Zosyn and vancomycin known to potentially cause nephrotoxicity therefore pay careful attention of renal function
Hypertension:
Continue home antihypertensives
Hyperlipidemia:
Continue home statin
Diabetes mellitus type 2:
Insulin sliding scale
Continue Farxiga
Holding metformin
DVT prophylaxis:
Lovenox
CODE STATUS:
Full code
Total time spent on today's encounter was 52 minutes which included time spent in counseling the patient/family regarding diagnosis and treatment plan as listed above, goals of care, and symptom management. Case was discussed with nursing staff,
specialists, and care coordinators/case management. All labs and imaging personally reviewed by me. Remainder the time spent in detailed review of previous records, lab data, imaging, and other medical provider documentation.
Anticipated Discharge: 24 - 48 hours
Subjective/Interval History
-
Date of Service: December 06, 2024
Patient still having significant amount of pain from right foot and IV pain medications wear off quickly. He had fever last night with Tmax 101.4 Fahrenheit. No nausea vomiting
Objective Data
-
Labs:
Laboratory Results
12/06/24
07:58
WBC 12.3 H
Hgb 8.5 L
Hct 26.6 L
Plt Count 511 H
Sodium 134 L
Potassium 4.6
Chloride 100
Carbon Dioxide 25
BUN 18
Creatinine 1.1
Glucose 108 H
Calcium 9.7
Vital Signs:
Vital Signs
Temp Pulse Resp BP Pulse Ox
98.8 F 88 16 108/59 96
12/06/24 11:27 12/06/24 11:27 12/06/24 11:27 12/06/24 11:27 12/06/24 11:27
I&O
12/05/24 12/06/24 12/07/24
06:59 06:59 06:59
Intake Total 4330 / 4330 1730 / 1730
Output Total 5750 / 5750 2400 / 2400
Balance -1420 / -1420 -670 / -670
--- NOTE | 2024-12-06 13:57 | W.PN.POD ---
Today's Communication
Today's Communication
Patient stable per podiatry , HE will f/u in my office in 1 wk after discharge
Assessment / Plan
-
S/p Rt foot debridement of necrotic tissue and resection of base of the proximal phalanx and 1st met head with partial primary closure POD #1
Diabetic small vessel disease
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
Rt partial hallux amputation 10/22/24
Plan ; ABX per ID
Changed surgical dressings to Rt foot, started Santyl oint to the rt foot 2,3 rd toes with minimal necrotic islands.
Patient likely going to rehab, Dressings to RT foot with Santyl to only necrotic area with few saline drops and dry gauze and kerlix once daily
elevate foot when at rest
Can wt bear with DH pressure releif shoe
Subjective
Chief Complaint
Right foot Necrotic ulcer with large gangrenous skin at hallux amputation site
Subjective
Patient seen at bedside, doing well, Denies any fever, chills. PAin well controlled with pain meds
Objective
Temp Pulse Resp BP Pulse Ox
98.8 F 88 16 108/59 96
12/06/24 11:27 12/06/24 11:27 12/06/24 11:27 12/06/24 11:27 12/06/24 11:27
12/06/24 07:58
12/06/24 07:58
Vital Signs and Lab results were reviewed.
Rt foot non palpable pedal pulses
Warm to touch,
Rt foot surgical site is clean, no active oozing, pink, healthy wound edges with minimal superficial necrotic islands over the 2,3 rd digits
No exposed tendons or bone, No more purulence noted, No crepitus felt
--- NOTE | 2024-12-06 14:23 | CON.ID ---
Consultation
-
Date/Time Consultation Requested: 12/06/2024 1012
Date/Time Consultation Performed: 12/06/2024 1423
Requesting Provider: Dr. Christopher
Performing Provider: Dr. Malave
Reason for Consultation: Right foot infection
Chief Complaint / Past History
History of Present Illness
Elio Chapman is a 59-year-old man being evaluated at request of Dr. Christopher in regards to right foot infection. History is obtained from chart review, along with patient interview.
Patient initially presented to [facility] in 12/03 regarding skin changes noted in the right distal foot. According to reviewed history, in June she underwent a left BKA secondary to a foot infection, and he had had a right hallux
amputation approximately 1 month ago. He reports he was closely followed by Podiatry and was into see them last week. At that visit, the toe amputation site was noted to be looking worse, with dermal gangrene, and he was sent to the ER for further
evaluation. He was started on empiric antibiotics. He was seen in consultation by Podiatry, and underwent debridement of the area on 12/05. Wound cultures are currently pending. Infectious Diseases is asked to comment upon further antimicrobial
management.
At this time he notes that his pain is controlled. He denies any preceding fevers and chills.
Past History
Additional Past Medical History:
DM type II
HTN
Anemia
HLD
Additional Past Surgical History:
Pelvic fracture (2016)
Left BKA (06/2024)
Allergy History:
No Known Allergies Allergy (Verified 12/03/24 11:27)
Medications Reviewed: Yes
Current Antibiotics:
Vancomycin (dosing per pharmacy)
Zosyn 4.5 gm IV q.6 hours
Social History
Tobacco: Non-Smoker
Alcohol: None
Drug: None
Personal:
Living: With Family
Employment: Retired
Family History
Family History: Not Pertinent
Review of Systems
Vital Signs
Temp Pulse Resp BP Pulse Ox
98.8 F 88 16 108/59 96
12/06/24 11:27 12/06/24 11:27 12/06/24 11:27 12/06/24 11:27 12/06/24 11:27
Physical Exam
Physical Exam
Constitutional: No Acute Distress, Comfortable and Non-toxic
Eyes: No Conjunctival Hemorrhage and Sclera Anicteric
Oral: No Thrush and No Ulcers
Cardiovascular: S1/S2; Negative S3/S4
Pulmonary: Clear; Negative Wheezes, Rales or Rhonchi
Gastrointestinal: Soft, Non Tender, Non Distended and Normal Bowel Sounds
Extremities: Edema; Negative Cyanosis or Erythema
Wound: Other (Right foot with sutures in place above first met head. Distal superficial wound noted)
Neurological: Awake and Alert
Psychological: Calm
Lab / Diagnostic Study Results
12/06/24 07:58
12/06/24 07:58
Abs Immat Gran (auto) 0.0 10^3/uL (0-0.05) 12/05/24 10:04
Absolute Neuts (auto) 8.3 10^3/uL (1.4-6.5) H 12/05/24 10:04
Absolute Lymphs (auto) 1.8 10^3/uL (1.2-3.4) 12/05/24 10:04
Absolute Monos (auto) 0.7 10^3/uL (0.1-0.6) H 12/05/24 10:04
Absolute Basos (auto) 0.1 10^3/uL (0-0.2) 12/05/24 10:04
Immature Gran % 0.4 % (0-0.5) 12/05/24 10:04
Neutrophils % 74.9 % (42.2-75.2) 12/05/24 10:04
Lymphocytes % 15.8 % (20.5-51.1) L 08/24/25 10:04
Monocytes % 6.6 % (1.7-9.3) 12/05/24 10:04
Eosinophils % 1.8 % (0-6) 12/05/24 10:04
Basophils % 0.5 % (0-2) 12/05/24 10:04
Lactic Acid 1.1 mmol/L (0.7-2.0) 12/03/24 12:56
Microbiology Results
Micro:
12/03/24 12:30 Blood Culture - Preliminary
Blood/Venous No Growth in 72 hours- Final report to follow
12/03/24 13:00 Blood Culture - Preliminary
Blood/Venous No Growth in 72 hours- Final report to follow
12/05/24 13:04 Anaerobic Culture - Preliminary
Foot - Right Culture pending. Anaerobic cultures are examined after 3
days incubation. Additional information to follow.
12/05/24 13:04 Wound Culture - Preliminary
Foot - Right Gram Stain - Preliminary
12/03/24 12:30 Wound Culture - Final
Foot - Right Gram Stain - Final
Imaging:
12/03/2024 X-ray right foot: s/p partial amputation of great toe. Base of proximal phalanx remains. No evidence of bony destruction.
Assessment / Plan
Left foot wound with dermal gangrene s/p debridement
Hx recent right hallux amputation
Leukocytosis
DM type II
HTN
Anemia
HLD
Recommendations:
Continue with current empiric antibiotics. Zosyn dose can be decreased to 3.375 gm IV q.6 hours
Follow Vanco levels closely to prevent nephrotoxicity
Will check MRI foot to assess for any osteomyelitis that may not yet be evident plain film
Await final culture data to guide further and microbial selection and potential de-escalation.
[2024-12-06] MEDS: ZOSYN IV (14:57)
--- NOTE | 2024-12-06 15:13 | W.PN.VS ---
Today's Communication / Plan
-
Discussed with Dr De La Garza
Assessment/Plan
-
Assessment: 59-year-old male with peripheral arterial disease status post left BKA and now with nonhealing right hallux amputation site concerning for infection.
Planning for RLE arteriogram Friday with Dr De La Garza
NPO after midnight tomorrow
Subjective Data
-
Date of Service: December 06, 2024
Pt seen at bedside this afternoon with family present. Pt offers no complaints at this time. No events overnight. Podiatric dressing intact, no drainage noted.
Objective Data
-
Vital Signs
Temp Pulse Resp BP Pulse Ox
98.8 F 88 16 108/59 96
12/06/24 11:27 12/06/24 11:27 12/06/24 11:27 12/06/24 11:27 12/06/24 11:27
Intake and Output
12/05/24 12/06/24 12/07/24
06:59 06:59 06:59
Intake Total 4330 / 4330 1730 / 1730
Output Total 5750 / 5750 2400 / 2400
Balance -1420 / -1420 -670 / -670
Intake:
Oral fluids 2040 / 2040 1080 / 1080
IV fluids (Total) 1160 / 1160 50 / 50
normosol 50 / 50
IV piggybacks 1130 / 1130 600 / 600
Output:
Urine, Voided 5750 / 5750 2400 / 2400
Lab Results
12/06/24 07:58
12/06/24 07:58
Calcium 9.7 mg/dl (8.4-10.2) 12/06/24 07:58
Magnesium 1.9 mg/dl (1.6-2.3) 12/05/24 10:04
Total Bilirubin 0.4 mg/dl (0.2-1.3) 12/05/24 10:04
AST 15 U/L (17-59) L 12/05/24 10:04
ALT 23 U/L (0-50) 12/05/24 10:04
Alkaline Phosphatase 90 U/L (38-126) 12/05/24 10:04
Total Protein 6.2 g/dl (6.3-8.2) L 12/05/24 10:04
Albumin 3.3 g/dl (3.5-5.0) L 12/05/24 10:04
Physical Exam
-
AAOx3
No tachypnea on RA
Backend Tester tachycarida
Abd soft, Non Tender and Non Distended
BL upper legs with moderate edema
Right foot wrapped with surgical dressing no drainage noted
[2024-12-06] MEDS: ZOSYN 50 IV ×2 (17:14→21:26)
[2024-12-06] MEDS: LOVENOX 40 MG SC (17:14)
[2024-12-06 17:21] LABS: Glucose - Point of Care 120 mg/dl (70-99)
[2024-12-06] MEDS: MORPHINE SULFATE 1 MG IV (21:00)
[2024-12-06 22:26] LABS: Glucose - Point of Care 169 mg/dl (70-99)
[2024-12-07] MEDS: MORPHINE SULFATE 1 MG IV ×2 (03:05→12:46)
[2024-12-07] MEDS: TYLENOL 1000 MG PO ×3 (03:05→18:33)
[2024-12-07] MEDS: ZOSYN 50 IV ×4 (03:06→22:15)
[2024-12-07 05:51] LABS: Hematocrit 25.4 % (39.0-52.0); Hemoglobin 8.2 g/dL (13.0-18.0); Mean Corp Hgb Conc. 32.3 g/dL (33.0-37.0); Mean Corpuscular Volume 87.0 fL (80.0-94.0); Nucleated Red Blood Cells % 0 % (-); Platelet Count 499 10^3/uL (130-400); Red Cell Dist. Width 13.7 % (11.5-14.5)
[2024-12-07 06:20] LABS: Blood Urea Nitrogen 20 mg/dl (9-20); Calcium 9.0 mg/dl (8.4-10.2); Carbon Dioxide 25 mmol/L (22-30); Chloride 101 mmol/L (98-107); Estimated Creatinine Clearance 82 ml/min; Glucose 134 mg/dl (70-99); Potassium 4.3 mmol/L (3.5-5.1); Sodium 134 mmol/L (135-145); eGFR > 60.00
[2024-12-07 07:44] LABS: Glucose - Point of Care 138 mg/dl (70-99)
[2024-12-07 07:45] VITALS: BP 149/73
[2024-12-07] MEDS: NOVOLOG FLEXPEN-LOW RESISTANCE SC ×2 (07:47→12:52)
[2024-12-07] MEDS: ORETIC 25 MG PO (07:47)
[2024-12-07] MEDS: CRESTOR 20 MG PO (07:48)
[2024-12-07] MEDS: FARXIGA 10 MG PO (07:48)
[2024-12-07] MEDS: CATAPRES 0.1 MG PO (07:48)
[2024-12-07] MEDS: NORVASC 10 MG PO (07:48)
[2024-12-07] MEDS: ZESTRIL 40 MG PO (07:48)
[2024-12-07] MEDS: APRESOLINE 50 MG PO (07:48)
[2024-12-07] MEDS: LOW STRENGTH ASPIRIN 81 MG PO (07:48)
[2024-12-07] MEDS: SANTYL OINTMENT 1 APPLIC TOPICAL (07:48)
[2024-12-07] MEDS: DILAUDID 0.5 MG IV ×2 (07:49→22:31)
--- NOTE | 2024-12-07 08:15 | PHA.VAN.FU ---
Vancomycin Assessment / Plan
- Assessment
Renal Function: SCR Increasing
WBC's are: WNL
In the past 24 hrs, patient has been: Afebrile
Concomitant Antimicrobials: piperacillin/tazobactam
- Assessment - Therapeutic Drug Monitoring
Random Level: 12.7 - drawn ~17H after previous dose of 1500mg
- Dosing Plan
Dosing by Level: Re-dose today (Vanc 1500mg)
Dosing Comments: will hold off on scheduling given increasing trend of SCR
- Monitoring Plan
Random Level: 12/08 0600
- Follow Up
Pharmacy will continue to follow.
Vancomycin Follow UP
- -
Patient Age: 59
Patient Sex: Male
Vancomycin Day #: 5
Indication: Skin And Soft Tissue
Requesting Provider: Dr. Owens (resident) / Ananda
Pertinent Antimicrobial Allergies:
NKDA
Height / Weight:
Height 5 ft 11 in
Actual Weight 103.51 kg
Pertinent Past Medical History: T2DM, PAD
- Vital Signs / Lab Results
Temp Pulse Resp BP Pulse Ox
98.6 F 85 16 149/73 96
12/07/24 07:45 12/07/24 07:48 12/07/24 07:45 12/07/24 07:48 12/07/24 07:45
Lab Results - Hematology
12/03/24 12/05/24 12/06/24
12:30 10:04 07:58
WBC 9.6 11.1 H 12.3 H
12/07/24
05:17
WBC 10.0
Lab Results - Chemistry
12/05/24 12/06/24 12/07/24
10:04 07:58 05:17
BUN 14 18 20
Creatinine 1.0 1.1 1.2
Estimated Creat Clear 99 90 82
Albumin 3.3 L
Microbiology Results
12/03/24 12:30 Blood Culture - Preliminary
Blood/Venous No Growth in 72 hours- Final report to follow
12/03/24 13:00 Blood Culture - Preliminary
Blood/Venous No Growth in 72 hours- Final report to follow
12/05/24 13:04 Anaerobic Culture - Preliminary
Foot - Right Culture pending. Anaerobic cultures are examined after 3
days incubation. Additional information to follow.
12/05/24 13:04 Wound Culture - Preliminary
Foot - Right Gram Stain - Preliminary
12/03/24 12:30 Wound Culture - Final
Foot - Right Gram Stain - Final
Therapeutic Drug Monitoring
Random Vancomycin 12.7 ug/ml 12/07/24 05:17
--- NOTE | 2024-12-07 08:31 | W.PN.HOSP.TC ---
Today's Communication/Plan
-
IV antibiotics. MRI foot. Plan for angiogram tomorrow
Assessment / Plan
Assessment / Plan
Physical exam:
General: Acutely ill
HEENT: Normocephalic, Atraumatic and Moist Mucous Membranes
Respiratory: Clear to Auscultation; Negative Wheezes, Rales or Rhonchi
Cardiac: Regular Rhythm and S1/S2
GI: Soft, Nontender and Nondistended
Musculoskeletal: Left BKA. No Clubbing, No Cyanosis. Right foot wrapped and C/D/I wound
Neuro: Awake, Alert and Oriented, no neurological deficit
Psych: Calm
A/P:
Right foot cellulitis and necrosis in the setting of PVD, diabetes mellitus, and resection of the base of the proximal phalanx and partial first metatarsal with partial closure:
Continue IV antibiotics, Zosyn and vancomycin
ID consult appreciated
ID reorder MRI to evaluate for osteomyelitis findings left
Podiatry did debridement on 12/05 and cultures taken
Blood cultures no growth
Vascular is planning to do an arteriogram tomorrow, Friday
Follow-up podiatry recommendations
Adjusted pain medications and working better
PT OT eval ordered today
Follow-up daily BMP especially while on the combo of Zosyn and vancomycin known to potentially cause nephrotoxicity therefore pay careful attention of renal function
Hypertension:
Continue home antihypertensives
Hyperlipidemia:
Continue home statin
Diabetes mellitus type 2:
Insulin sliding scale
Continue Farxiga
Holding metformin
DVT prophylaxis:
Lovenox
CODE STATUS:
Full code
Total time spent on today's encounter was 52 minutes which included time spent in counseling the patient/family regarding diagnosis and treatment plan as listed above, goals of care, and symptom management. Case was discussed with nursing staff,
specialists, and care coordinators/case management. All labs and imaging personally reviewed by me. Remainder the time spent in detailed review of previous records, lab data, imaging, and other medical provider documentation.
Anticipated Discharge: > 48 hours
Subjective/Interval History
-
Date of Service: December 07, 2024
Patient states the pain on his foot is improved. No chest pain or shortness of breath. Afebrile
Objective Data
-
Labs:
Laboratory Results
12/07/24
05:17
WBC 10.0
Hgb 8.2 L
Hct 25.4 L
Plt Count 499 H
Sodium 134 L
Potassium 4.3
Chloride 101
Carbon Dioxide 25
BUN 20
Creatinine 1.2
Glucose 134 H
Calcium 9.0
Vital Signs:
Vital Signs
Temp Pulse Resp BP Pulse Ox
98.6 F 85 16 149/73 96
12/07/24 07:45 12/07/24 07:48 12/07/24 07:45 12/07/24 07:48 12/07/24 07:45
I&O
12/06/24 12/07/24 12/08/24
06:59 06:59 06:59
Intake Total 1730 / 1730 2049 / 2049
Output Total 2400 / 2400 1350 / 1350
Balance -670 / -670 700 / 700
[2024-12-07] MEDS: SENOKOT-S 1 TABLET PO (10:44)
[2024-12-07] MEDS: VANCOCIN 530 MG IV (12:09)
[2024-12-07 12:49] LABS: Glucose - Point of Care 147 mg/dl (70-99)
--- NOTE | 2024-12-07 14:18 | CM ---
Reviewed the chart notes. Per notes, plan is for RLE arteriogram Friday. CM continues to be available to patient/family and is monitoring medical plan for needs at discharge.
Plan: Discharge to SNF/rehab. Precert will be required.
--- NOTE | 2024-12-07 14:55 | W.PN.ID1 ---
Date of Service
Date of Service: December 07, 2024
Today's Communication
Continue antibiotics for today
Assessment / Plan
Left foot wound with dermal gangrene s/p debridement
Hx recent right hallux amputation
Leukocytosis
DM type II
HTN
Anemia
HLD
Recommendations:
Continue with Zosyn 3.375 gm IV q.6 hours
Continue vancomycin. Follow Vanco levels closely to prevent nephrotoxicity
MRI findings reviewed, and are concerning for osteomyelitis of the second met head and proximal phalanx given that the wound is overlying the concerned areas.
Await final culture data to guide further antimicrobial selection and potential de-escalation.
Chief Complaint
-: Other (Right foot infection)
Subjective / Review of Systems
Review of Systems: No Fever and No Chills
Vital Signs / Physical Exam
Vital Signs
Vital Signs
Temp Pulse Resp BP Pulse Ox
98.6 F 85 16 149/73 96
12/07/24 07:45 12/07/24 07:48 12/07/24 07:45 12/07/24 07:48 12/07/24 07:45
Physical Exam
Constitutional: No Acute Distress, Comfortable, Chronically Ill and Non-toxic
Eyes: No Conjunctival Hemorrhage and Sclera Anicteric
Cardiovascular: S1/S2; Negative S3/S4
Pulmonary: Non Labored
Gastrointestinal: Soft and Non Tender
Extremities: Other (Right foot with dressing intact. Dorsal wound noted. Some slough in the base.)
Musculoskeletal: Other (Left BKA. Stump dressed in Eulogio wrap)
Neurological: Awake and Alert
Psychological: Calm
Objective Data
Lab Data
Lab Results
12/07/24 05:17
12/07/24 05:17
Estimated Creat Clear 82 ml/min 12/07/24 05:17
Lactic Acid 1.1 mmol/L (0.7-2.0) 12/03/24 12:56
Total Bilirubin 0.4 mg/dl (0.2-1.3) 12/05/24 10:04
AST 15 U/L (17-59) L 12/05/24 10:04
ALT 23 U/L (0-50) 12/05/24 10:04
Alkaline Phosphatase 90 U/L (38-126) 12/05/24 10:04
Most recent labs reviewed.
Micro Results:
12/03/24 12:30 Blood Culture - Preliminary
Blood/Venous No Growth in 4 days- Final report to follow
12/03/24 13:00 Blood Culture - Preliminary
Blood/Venous No Growth in 4 days- Final report to follow
12/05/24 13:04 Anaerobic Culture - Preliminary
Foot - Right Culture pending. Anaerobic cultures are examined after 3
days incubation. Additional information to follow.
12/05/24 13:04 Wound Culture - Preliminary
Foot - Right Coagulase neg. staphylococcus
Gram Stain - Preliminary
12/03/24 12:30 Wound Culture - Final
Foot - Right Gram Stain - Final
Imaging:
12/07/2024 MRI right lower extremity: postoperative changes with interval resection of the residual proximal phalanx of the great toe and distal first metatarsal. Signal changes in the area would favor reactive marrow edema/postoperative changes
rather than osteomyelitis. Hyperintense signal is noted in the second metatarsal head as well as proximal phalanx of the second toe. Findings may suggest early osteomyelitis as a possibility, although not definite.
12/03/2024 X-ray right foot: s/p partial amputation of great toe. Base of proximal phalanx remains. No evidence of bony destruction.
[2024-12-07] MEDS: MIRALAX 17 GRAMS PO (15:29)
--- NOTE | 2024-12-07 15:36 | PTCARENOTE ---
pt able to bump himself to commode this afternoon with assistance but no productive output.prn stool softeners given to patient this shift due to no BM.
[2024-12-07 15:49] VITALS: BP 124/65
--- NOTE | 2024-12-07 16:23 | WOUNDNOTE ---
Mik GLEZ STUMP
--- NOTE | 2024-12-07 16:23 | WOUNDNOTE ---
L LATERAL BKA SITE WITH STERI STRIP
--- NOTE | 2024-12-07 16:27 | WOUNDNOTE ---
RAFFAELE RN note: Patient admitted for gangrene of R foot.
See H&P for complete history.
PMH: Obesity, IDDM,HTN,ORIF pelvic fracture, L BKA 09/04/24, R great toe gangrene-amp.
Wound Location and type/assessment: Patient admitted with: Necrotic R great toe amp site, Dr. Heath did a partial hallux amputation and debridement on 12/05. Reviewed Podiatry note, Santyl dressing already on order. R heel is intact, dry
skin. L BKA stump with healing dehiscence, dry brown eschar, scant drainage and moist proximal edge. Lateral edge of healed suture line with 1 steri strip. Very little complaint of pain. Patient able to turn self to sides, nurse Allie reports
sacrum intact. Pillow in use under R calve and air cushion under L stump.
Appetite: Fair, states has no appetite. Encouraged protein in diet to help with wound healing.
Pressure redistribution devices in place: On Air mattress, turns self. Heel offloaded.
Plan: R amp site dressing changed per Dr. Heath's order, nurse Allie assisted. Adaptic, dry ABD pad applied to L BKA with Eulogio wrap. RLE arteriogram with Dr. De La Garza scheduled for tomorrow. Will follow along peripherally, assist as needed. Will
confirm orders with hospitalist and Updated care plan.
Note to case management of equipment requested for discharge: TBD
Recommend follow up with Radar Tester and Vascular team.
[2024-12-07 17:53] LABS: Glucose - Point of Care 184 mg/dl (70-99)
[2024-12-07] MEDS: NOVOLOG FLEXPEN-LOW RESISTANCE 1 UNITS SC (18:29)
[2024-12-07] MEDS: LOVENOX 40 MG SC (18:29)
[2024-12-07] MEDS: DULCOLAX 10 MG RECTAL (22:11)
[2024-12-07 22:17] LABS: Glucose - Point of Care 153 mg/dl (70-99)
[2024-12-07 23:00] VITALS: BP 147/72
[2024-12-08] VITALS (12 sets, daily range): BP systolic 129–155; BP diastolic 70–85; PULSE 78; O2SAT 97
[2024-12-08] MEDS: TYLENOL 1000 MG PO ×3 (02:59→19:57)
[2024-12-08] MEDS: ZOSYN 50 IV ×4 (04:52→21:53)
[2024-12-08] MEDS: DILAUDID 0.5 MG IV ×3 (05:31→21:53)
[2024-12-08 06:00] LABS: Glucose - Point of Care 105 mg/dl (70-99)
[2024-12-08 06:30] LABS: Hematocrit 25.1 % (39.0-52.0); Hemoglobin 8.1 g/dL (13.0-18.0); Mean Corp Hgb Conc. 32.3 g/dL (33.0-37.0); Mean Corpuscular Volume 87.8 fL (80.0-94.0); Nucleated Red Blood Cells % 0 % (-); Platelet Count 512 10^3/uL (130-400); Red Cell Dist. Width 13.5 % (11.5-14.5)
[2024-12-08 06:56] LABS: Blood Urea Nitrogen 22 mg/dl (9-20); Calcium 9.6 mg/dl (8.4-10.2); Carbon Dioxide 24 mmol/L (22-30); Chloride 102 mmol/L (98-107); Estimated Creatinine Clearance 82 ml/min; Glucose 90 mg/dl (70-99); Potassium 4.0 mmol/L (3.5-5.1); Sodium 135 mmol/L (135-145); eGFR > 60.00
[2024-12-08 08:12] LABS: Glucose - Point of Care 104 mg/dl (70-99)
[2024-12-08] MEDS: FARXIGA 10 MG PO (09:06)
[2024-12-08] MEDS: NORVASC 10 MG PO (09:06)
[2024-12-08] MEDS: ZESTRIL 40 MG PO (09:06)
[2024-12-08] MEDS: CRESTOR 20 MG PO (09:06)
[2024-12-08] MEDS: CATAPRES 0.1 MG PO (09:06)
[2024-12-08] MEDS: LOW STRENGTH ASPIRIN 81 MG PO (09:07)
[2024-12-08] MEDS: SANTYL OINTMENT 1 APPLIC TOPICAL (09:07)
[2024-12-08] MEDS: ORETIC 25 MG PO (09:07)
[2024-12-08] MEDS: APRESOLINE 50 MG PO (09:07)
--- NOTE | 2024-12-08 09:29 | PHA.VAN.FU ---
Vancomycin Assessment / Plan
- Assessment
Renal Function: Stable
WBC's are: Trending Up
In the past 24 hrs, patient has been: Afebrile
Concomitant Antimicrobials: piperacillin/tazobactam
- Assessment - Therapeutic Drug Monitoring
Random Level: 13.8 - drawn ~18H after previous dose of 1500mg
- Dosing Plan
Dosing by Level: Re-dose today (Vanc 1500mg)
Dosing Comments: level may be trending up - will continue to follow trend
- Monitoring Plan
Random Level: 12/09 0600
- Follow Up
Pharmacy will continue to follow.
Vancomycin Follow UP
- -
Patient Age: 59
Patient Sex: Male
Vancomycin Day #: 6
Indication: Skin And Soft Tissue
Requesting Provider: Dr. Owens (resident) / Ananda
Pertinent Antimicrobial Allergies:
NKDA
Height / Weight:
Height 5 ft 11 in
Actual Weight 103.51 kg
Pertinent Past Medical History: T2DM, PAD
- Vital Signs / Lab Results
Temp Pulse Resp BP Pulse Ox
98.2 F 86 16 144/76 98
12/08/24 07:25 12/08/24 09:06 12/08/24 07:25 12/08/24 09:06 12/08/24 07:25
Lab Results - Hematology
12/05/24 12/06/24 12/07/24
10:04 07:58 05:17
WBC 11.1 H 12.3 H 10.0
12/08/24
06:12
WBC 11.0 H
Lab Results - Chemistry
12/05/24 12/06/24 12/07/24
10:04 07:58 05:17
BUN 14 18 20
Creatinine 1.0 1.1 1.2
Estimated Creat Clear 99 90 82
Albumin 3.3 L
12/08/24
06:12
BUN 22 H
Creatinine 1.2
Estimated Creat Clear 82
Albumin
Microbiology Results
12/05/24 13:04 Wound Culture - Preliminary
Foot - Right Coagulase neg. staphylococcus
Gram Stain - Preliminary
12/03/24 12:30 Blood Culture - Preliminary
Blood/Venous No Growth in 4 days- Final report to follow
12/03/24 13:00 Blood Culture - Preliminary
Blood/Venous No Growth in 4 days- Final report to follow
12/05/24 13:04 Anaerobic Culture - Preliminary
Foot - Right Culture pending. Anaerobic cultures are examined after 3
days incubation. Additional information to follow.
Therapeutic Drug Monitoring
Random Vancomycin 13.8 ug/ml 12/08/24 06:12
--- NOTE | 2024-12-08 09:32 | W.PN.ID1 ---
Date of Service
Date of Service: December 08, 2024
Today's Communication
Continue antibiotics.
Assessment / Plan
Left foot wound with dermal gangrene s/p debridement
Hx recent right hallux amputation
Leukocytosis
DM type II (uncontrolled; HbA1c = 7.7)
HTN
Anemia
HLD
Recommendations:
Continue with Zosyn 3.375 gm IV q.6 hours
Continue vancomycin. Follow Vanco levels closely to prevent nephrotoxicity.
MRI findings reviewed, and are concerning for osteomyelitis of the second met head and proximal phalanx given that the wound is overlying the concerned areas.
Await final culture data to guide further antimicrobial selection and potential de-escalation.
Patient for angiography today.
Based upon appearance of area (see photos), and underlying uncontrolled diabetes, patient has had extremely high risk for limb loss. He may ultimately not have enough blood flow to the wound area, via large vessels and small vessels, to allow for
effective healing.
����������������������������������������������������������
Chief Complaint
-: Other (Right foot infection)
Subjective / Review of Systems
Patient seen and examined. Reports some mild discomfort in the right foot. No fevers or chills.
Vital Signs / Physical Exam
Vital Signs
Vital Signs
Temp Pulse Resp BP Pulse Ox
98.2 F 86 16 144/76 98
12/08/24 07:25 12/08/24 09:06 12/08/24 07:25 12/08/24 09:06 12/08/24 07:25
Physical Exam
Constitutional: No Acute Distress, Comfortable, Chronically Ill and Non-toxic
Eyes: No Conjunctival Hemorrhage and Sclera Anicteric
Cardiovascular: S1/S2; Negative S3/S4
Pulmonary: Non Labored
Gastrointestinal: Soft and Non Tender
Extremities: Other (Right foot with dorsal wound. Slough in the base. Medial area of dry dermal gangrene. No malodor.)
Musculoskeletal: Other (Left BKA. Stump dressed in Eulogio wrap)
Neurological: Awake and Alert
Psychological: Calm
Objective Data
Lab Data
Lab Results
12/08/24 06:12
12/08/24 06:12
Estimated Creat Clear 82 ml/min 12/08/24 06:12
Lactic Acid 1.1 mmol/L (0.7-2.0) 12/03/24 12:56
Total Bilirubin 0.4 mg/dl (0.2-1.3) 12/05/24 10:04
AST 15 U/L (17-59) L 12/05/24 10:04
ALT 23 U/L (0-50) 12/05/24 10:04
Alkaline Phosphatase 90 U/L (38-126) 12/05/24 10:04
Most recent labs reviewed.
Micro Results:
12/05/24 13:04 Wound Culture - Preliminary
Foot - Right Coagulase neg. staphylococcus
Gram Stain - Preliminary
12/03/24 12:30 Blood Culture - Preliminary
Blood/Venous No Growth in 4 days- Final report to follow
12/03/24 13:00 Blood Culture - Preliminary
Blood/Venous No Growth in 4 days- Final report to follow
12/05/24 13:04 Anaerobic Culture - Preliminary
Foot - Right Culture pending. Anaerobic cultures are examined after 3
days incubation. Additional information to follow.
12/03/24 12:30 Wound Culture - Final
Foot - Right Gram Stain - Final
Imaging:
12/07/2024 MRI right lower extremity: postoperative changes with interval resection of the residual proximal phalanx of the great toe and distal first metatarsal. Signal changes in the area would favor reactive marrow edema/postoperative changes
rather than osteomyelitis. Hyperintense signal is noted in the second metatarsal head as well as proximal phalanx of the second toe. Findings may suggest early osteomyelitis as a possibility, although not definite.
12/03/2024 X-ray right foot: s/p partial amputation of great toe. Base of proximal phalanx remains. No evidence of bony destruction.
--- NOTE | 2024-12-08 09:38 | W.PN.HOSP.TC ---
Today's Communication/Plan
-
Angiogram today. Antibiotics
Assessment / Plan
Assessment / Plan
Physical exam:
General: Acutely ill
HEENT: Normocephalic, Atraumatic and Moist Mucous Membranes
Respiratory: Clear to Auscultation; Negative Wheezes, Rales or Rhonchi
Cardiac: Regular Rhythm and S1/S2
GI: Soft, Nontender and Nondistended
Musculoskeletal: Left BKA. No Clubbing, No Cyanosis. Right foot wrapped and C/D/I wound
Neuro: Awake, Alert and Oriented, no neurological deficit
Psych: Calm
A/P:
Right foot cellulitis and necrosis in the setting of PVD, diabetes mellitus, and resection of the base of the proximal phalanx and partial first metatarsal with partial closure:
Continue IV antibiotics, Zosyn and vancomycin
ID consult appreciated
ID reorder MRI and findings concerning for osteomyelitis of the second met head and proximal phalanx.
Podiatry did debridement on 12/05 and cultures taken
Blood cultures no growth
Vascular is planning to do an arteriogram this afternoon
Follow-up podiatry recommendations
Adjusted pain medications and working better
PT OT eval ordered today
Follow-up daily BMP especially while on the combo of Zosyn and vancomycin known to potentially cause nephrotoxicity therefore pay careful attention of renal function
Discussed with and son at bedside today
Hypertension:
Continue home antihypertensives
Hyperlipidemia:
Continue home statin
Diabetes mellitus type 2:
Insulin sliding scale
Continue Farxiga
Holding metformin
DVT prophylaxis:
Lovenox
CODE STATUS:
Full code
Total time spent on today's encounter was 52 minutes which included time spent in counseling the patient/family regarding diagnosis and treatment plan as listed above, goals of care, and symptom management. Case was discussed with nursing staff,
specialists, and care coordinators/case management. All labs and imaging personally reviewed by me. Remainder the time spent in detailed review of previous records, lab data, imaging, and other medical provider documentation.
Anticipated Discharge: 24 - 48 hours
Subjective/Interval History
-
Date of Service: December 08, 2024
Patient denies any chest pain or shortness of breath. Afebrile.
Objective Data
-
Labs:
Laboratory Results
12/08/24
06:12
WBC 11.0 H
Hgb 8.1 L
Hct 25.1 L
Plt Count 512 H
Sodium 135
Potassium 4.0
Chloride 102
Carbon Dioxide 24
BUN 22 H
Creatinine 1.2
Glucose 90
Calcium 9.6
Vital Signs:
Vital Signs
Temp Pulse Resp BP Pulse Ox
98.2 F 86 16 144/76 98
12/08/24 07:25 12/08/24 09:06 12/08/24 07:25 12/08/24 09:06 12/08/24 07:25
I&O
12/07/24 12/08/24 12/09/24
06:59 06:59 06:59
Intake Total 2049 / 2049 1660 / 1660 50 / 50
Output Total 1350 / 1350 2290 / 2290
Balance 700 / 700 -630 / -630 50 / 50
[2024-12-08] MEDS: VANCOCIN 530 MG IV (11:01)
[2024-12-08 12:00] LABS: Glucose - Point of Care 104 mg/dl (70-99)
--- NOTE | 2024-12-08 13:34 | CM ---
Reviewed the chart notes and spoke with the patient and his mother at the bedside. Discussed discharge plans of to SNF when medically stable. Patient's mother provided names of facilities. Referrals sent via [facility]. CM continues to be
available to patient/family and is monitoring medical plan for needs at discharge.
Plan: Discharge to SNF/rehab once medically stable, bed secured, and auth obtained.
--- NOTE | 2024-12-08 16:03 | W.PN.POD ---
Today's Communication
Today's Communication
He will f/u in my office for all post op care 1 wk after discharge
Assessment / Plan
-
S/p Rt foot debridement of necrotic tissue and resection of base of the proximal phalanx and 1st met head with partial primary closure POD #3
Diabetic small vessel disease
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
Rt partial hallux amputation 10/22/24
Plan ; ABX per ID
Changed surgical dressings to Rt foot, started Santyl oint to the rt foot 2,3 rd toes with minimal necrotic islands.
Patient likely going to rehab, Dressings to RT foot with Santyl to only necrotic area with few saline drops and dry gauze and kerlix once daily
elevate foot when at rest
Can wt bear with DH pressure releif shoe
Subjective
Chief Complaint
Right foot gangrene , non healing big toe amputation
Subjective
Patient seen at bedside, doing well, Denies any fever, chills. Patient for the Rt angiogram procedure today by vascular . No other new complaints offered
Objective
Temp Pulse Resp BP Pulse Ox
98.4 F 83 16 138/75 98
12/08/24 15:06 12/08/24 15:06 12/08/24 15:06 12/08/24 15:06 12/08/24 15:06
12/08/24 06:12
12/08/24 06:12
Vital Signs and Lab results were reviewed.
Right foot non palpable pedal pulses
Warm to touch,
Rt foot surgical site is clean, no active oozing, slight necrotic skin wound edges noted. Superficial necrotic islands over the 2,3 rd digits as well.
No exposed tendons or bone, No more purulence noted, No crepitus felt
--- NOTE | 2024-12-08 16:07 | W.PN.POD ---
Assessment / Plan
-
S/p Rt foot debridement of necrotic tissue and resection of base of the proximal phalanx and 1st met head with partial primary closure POD #1
Diabetic small vessel disease
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
Rt partial hallux amputation 10/22/24
Plan ; ABX per ID
Changed surgical dressings to Rt foot, started Santyl oint to the rt foot 2,3 rd toes with minimal necrotic islands.
Patient likely going to rehab, Dressings to RT foot with Santyl to only necrotic area with few saline drops and dry gauze and kerlix once daily
elevate foot when at rest
Can wt bear with DH pressure releif shoe
Subjective
Objective
Temp Pulse Resp BP Pulse Ox
98.4 F 83 16 138/75 98
12/08/24 15:06 12/08/24 15:06 12/08/24 15:06 12/08/24 15:06 12/08/24 15:06
12/08/24 06:12
12/08/24 06:12
Vital Signs and Lab results were reviewed.
--- NOTE | 2024-12-08 17:48 | OR.RPT ---
Operative Report
Operative Report
PROCEDURE DATE: 12/08/2024
Preoperative diagnosis:
1. Chronic limb threatening ischemia right lower extremity.
2. Left below the knee amputation dry necrotic tissue, some concern for infection.
Postoperative diagnosis: Same, but no infection left below the knee amputation.
Procedure:
1. Duplex assisted cannulation of left common femoral artery.
2. Aortogram and pelvic angiogram.
3. Right lower extremity arteriogram.
4. Selective cannulation of right posterior tibial artery with limited balloon angioplasty with 2 mm angioplasty balloon.
5. Left femoral angiogram and Pro-glide percutaneous suture closure.
6. Supervision and interpretation.
7. Excisional debridement left below the knee amputation stump skin and subcutaneous tissue approximately 3.5 cm x 3 cm, depth less than 1 cm.
Surgeon: Frederic
National Business Director: None
Complications: None
Anesthesia: General
Fluoroscopy:
13.5 min
129 mGy
34.35 gy.cm2
Indications for procedure:
As above chronic limb-threatening ischemia right lower extremity. Status post left BKA, dry necrotic tissue on the stump. Brought for above procedures. Risk/benefits/alternatives were fully discussed. Patient understood and wished to proceed.
Description of procedure:
Patient was identified, brought to the operating room. Placed on the table in the supine position. After the adequate administration of anesthesia, the patient was prepped and draped in the standard surgical fashion. A standard preoperative
timeout was undertaken and everybody was in agreement with the plan.
The left common femoral artery was accessed with a micropuncture kit under direct duplex ultrasound guidance. A 5 Canadian sheath was then advanced over a 0.035 inch wire, and a stafford's hook catheter was advanced into the abdominal aorta.
Aortogram and pelvic angiogram was obtained. Findings as follows:
As noted in the prior angiogram, the infrarenal aorta and the right common and external iliac artery were patent with no significant stenoses. Left iliac system was not visualized on this obliquity.
Using a floppy angled hydrophilic wire, the right common femoral artery was cannulated and the catheter was advanced. Right lower extremity arteriogram was obtained. Findings as follows:
Unchanged findings from recent prior angiography. No significant common femoral or profunda stenosis. Eccentric superficial femoral artery calcified plaque, but no significant stenosis. Mild xtech-zyw-ioue popliteal artery stenosis at most 20%.
High anterior tibial artery origin noted. Prior angioplasty slight and the anterior tibial artery appeared widely patent with brisk filling into the anterior tibial artery. Stable findings distally in terms of dorsalis pedis being diminutive in
size, distal occlusive/heavy plaque disease in the distal dorsalis pedis with poor digital filling. Patent tibioperoneal trunk with no significant stenosis. Peroneal artery diminutive in size, minimal collateralization. Posterior tibial arteries
patent, diminutive/heavily calcified disease throughout. Significant disease in his distal third and around the ankle.
At this point given that the angioplasty site in the anterior tibial artery was open, I did not feel that there is any further intervention to render for that artery. However I felt it was worthwhile and attempt to try again to revascularize
posterior tibial artery. Therefore I advanced a Storq wire into the SFA and then exchanged for an up and over 5 Canadian 70 cm sheath. Patient was given 8000's of intravenous heparin. Next under roadmap assisted guidance using a flopping of
hydrophilic wire and a CXI catheter, I selectively cannulated the posterior tibial artery and then advanced a CXI catheter. I had now performed a roadmap. Then using a steerable 0.014 inch wire and a 2.6 Canadian CXI I tried to traverse the entirety
of the distal posterior tibial artery occlusions. I was finally able to with great difficulty get my wire into the plantars on the foot. However I could not pass a 2.6 Canadian CXI. I therefore then elected to try to pass a low-profile balloon. I
used a 2 mm angioplasty balloon which I could not advance beyond the distal third of the calf. (Due to severe plaque stenosis). I therefore angioplastied in that position. And then deflated the balloon and tried to advance it. However still
could not advance it. I then tried a 1.5 mm balloon which was an awxy-yme-snaf balloon rather than a Monorail balloon. However I could not advance this as well. At this point I felt that there is nothing else I could render here despite having
had wire access into the plantar artery. Therefore at this point I withdrew my 0.014 inch wire. I then withdrew the sheath to the left external iliac artery over a 0.035 inch wire. Left femoral angiogram demonstrated good puncture of the left
common femoral artery. Therefore used a Pro-glide percutaneous suture to close the artery while removing the sheath. Hemostasis was fully achieved with good pulsation in the left femoral artery. Manual pressure was also applied to confirm
hemostasis.
At this point I then prepped and draped the left below the knee amputation stump. I used a 15 blade scalpel to perform sharp excisional debridement of the necrotic skin tissue/eschar on the below the knee amputation stump, debridement size
measuring approximately 3.5 x 3 cm with depth less than 1 cm. The tissue was deep to the eschar were all incorporated and appeared to be healing reasonably. There was good bleeding. I use electrocautery to confirm full hemostasis. I then placed
a packing with wet-to-dry dressing on the site and Eulogio bandage wrapping.
The patient tolerated procedure well.
[2024-12-08 17:56] LABS: Glucose - Point of Care 93 mg/dl (70-99)
[2024-12-08] MEDS: SUBLIMAZE 25 MCG IV (18:04)
--- NOTE | 2024-12-08 18:45 | PTCARENOTE ---
Pt received from PACU, VSS, site CDI, resting comfortably in bed with call walker at side.
[2024-12-08] MEDS: LOVENOX 40 MG SC (19:57)
[2024-12-08] MEDS: NSS 1000 IV (20:29)
[2024-12-08 21:41] LABS: Glucose - Point of Care 151 mg/dl (70-99)
[2024-12-09] VITALS (9 sets, daily range): BP systolic 115–153; BP diastolic 65–83; PULSE 93; BMI 31.8
[2024-12-09] MEDS: TYLENOL PO ×2 (04:08→04:11)
[2024-12-09] MEDS: ZOSYN 50 IV ×4 (04:08→22:43)
[2024-12-09 05:37] LABS: Hematocrit 25.7 % (39.0-52.0); Hemoglobin 8.2 g/dL (13.0-18.0); Mean Corp Hgb Conc. 31.9 g/dL (33.0-37.0); Mean Corpuscular Volume 88.0 fL (80.0-94.0); Platelet Count 581 10^3/uL (130-400); Red Cell Dist. Width 13.7 % (11.5-14.5)
[2024-12-09 05:52] LABS: Blood Urea Nitrogen 32 mg/dl (9-20); Calcium 9.3 mg/dl (8.4-10.2); Carbon Dioxide 22 mmol/L (22-30); Chloride 104 mmol/L (98-107); Estimated Creatinine Clearance 70 ml/min; Glucose 155 mg/dl (70-99); Potassium 4.8 mmol/L (3.5-5.1); Sodium 137 mmol/L (135-145); eGFR 58.26
[2024-12-09 08:22] LABS: Glucose - Point of Care 140 mg/dl (70-99)
[2024-12-09] MEDS: NOVOLOG FLEXPEN-LOW RESISTANCE SC ×2 (08:52→17:10)
[2024-12-09] MEDS: APRESOLINE 50 MG PO (09:00)
[2024-12-09] MEDS: LOW STRENGTH ASPIRIN 81 MG PO (09:01)
[2024-12-09] MEDS: ORETIC 25 MG PO (09:01)
[2024-12-09] MEDS: FARXIGA 10 MG PO (09:01)
[2024-12-09] MEDS: CRESTOR 20 MG PO (09:01)
[2024-12-09] MEDS: ZESTRIL 40 MG PO (09:01)
[2024-12-09] MEDS: SANTYL OINTMENT 1 APPLIC TOPICAL (09:02)
[2024-12-09] MEDS: CATAPRES 0.1 MG PO (09:02)
[2024-12-09] MEDS: NORVASC 10 MG PO (09:02)
[2024-12-09] MEDS: TYLENOL 1000 MG PO ×2 (09:05→17:11)
--- NOTE | 2024-12-09 09:14 | PHA.VAN.FU ---
Vancomycin Assessment / Plan
- Assessment
Renal Function: SCR Increasing
WBC's are: Trending Up
In the past 24 hrs, patient has been: Afebrile
Concomitant Antimicrobials: piperacillin/tazobactam
- Assessment - Therapeutic Drug Monitoring
Random Level: 16.7 drawn ~18H after previous dose of 1500mg
- Dosing Plan
Dosing by Level: Re-dose today (Vanc 1250mg)
Dosing Comments: reducing dose today with accumulation of level and increasing SCR
- Monitoring Plan
Random Level: 12/10 0600
- Follow Up
Pharmacy will continue to follow.
Vancomycin Follow UP
- -
Patient Age: 59
Patient Sex: Male
Vancomycin Day #: 7
Indication: Skin And Soft Tissue
Requesting Provider: Dr. Owens (resident) / Ananda
Pertinent Antimicrobial Allergies:
NKDA
Height / Weight:
Height 5 ft 11 in
Actual Weight 103.51 kg
Pertinent Past Medical History: T2DM, PAD
- Vital Signs / Lab Results
Temp Pulse Resp BP Pulse Ox
98.0 F 90 16 147/83 98
12/09/24 08:22 12/09/24 09:00 12/09/24 08:22 12/09/24 09:00 12/09/24 08:22
Lab Results - Hematology
12/06/24 12/07/24 12/08/24
07:58 05:17 06:12
WBC 12.3 H 10.0 11.0 H
12/09/24
05:16
WBC 12.9 H
Lab Results - Chemistry
12/07/24 12/08/24 12/09/24
05:17 06:12 05:16
BUN 20 22 H 32 H
Creatinine 1.2 1.2 1.4 H
Estimated Creat Clear 82 82 70
Microbiology Results
12/05/24 13:04 Wound Culture - Preliminary
Foot - Right Staphylococcus lugdunensis
Gram Stain - Preliminary
12/05/24 13:04 Anaerobic Culture - Preliminary
Foot - Right Culture pending. Anaerobic cultures are examined after 3
days incubation. Additional information to follow.
12/03/24 13:00 Blood Culture - Final
Blood/Venous No Growth - Final Report
12/03/24 12:30 Blood Culture - Final
Blood/Venous No Growth - Final Report
Therapeutic Drug Monitoring
Random Vancomycin 16.7 ug/ml 12/09/24 05:16
--- NOTE | 2024-12-09 09:57 | W.PN.ID1 ---
Date of Service
Date of Service: December 09, 2024
Today's Communication
Continue antibiotics.
Assessment / Plan
Left foot wound with dermal gangrene s/p debridement
Hx recent right hallux amputation
Leukocytosis
Limb threatening ischemia; s/p angiography (12/08/2024)
DM type II (uncontrolled; HbA1c = 7.7)
HTN
Anemia
HLD
Recommendations:
Prior wound cultures with Serratia marcescens. Current wound cultures with Staphylococcus lugdunensis
Continue with Zosyn 3.375 gm IV q.6 hours
Continue vancomycin. Follow Vanco levels closely to prevent nephrotoxicity.
Slight bump in creatinine noted today, but may be secondary to contrast given during yesterday's angiography.
MRI findings reviewed, and are concerning for osteomyelitis of the second met head and proximal phalanx given that the wound is overlying the concerned areas.
Will likely require 6-week course of antibiotics in an attempt to salvage the limb.
Based upon appearance of area (see photos), and underlying uncontrolled diabetes, patient has had extremely high risk for limb loss. He may ultimately not have enough blood flow to the wound area, via large vessels and small vessels, to allow for
effective healing.
����������������������������������������������������������
Chief Complaint
-: Other (Right foot infection)
Subjective / Review of Systems
Review of Systems: No Fever and No Chills
Vital Signs / Physical Exam
Vital Signs
Vital Signs
Temp Pulse Resp BP Pulse Ox
98.0 F 90 16 147/83 98
12/09/24 08:22 12/09/24 09:00 12/09/24 08:22 12/09/24 09:00 12/09/24 08:22
Physical Exam
Constitutional: No Acute Distress, Comfortable, Chronically Ill and Non-toxic
Eyes: No Conjunctival Hemorrhage and Sclera Anicteric
Cardiovascular: S1/S2; Negative S3/S4
Pulmonary: Non Labored
Gastrointestinal: Soft and Non Tender
Extremities: Other (Right foot with dorsal wound. Slough in the base. Medial area of dry dermal gangrene. No malodor.)
Musculoskeletal: Other (Left BKA. Stump dressed in Eulogio wrap)
Neurological: Awake and Alert
Psychological: Calm
Objective Data
Lab Data
Lab Results
12/09/24 05:16
12/09/24 05:16
Estimated Creat Clear 70 ml/min 12/09/24 05:16
Lactic Acid 1.1 mmol/L (0.7-2.0) 12/03/24 12:56
Total Bilirubin 0.4 mg/dl (0.2-1.3) 12/05/24 10:04
AST 15 U/L (17-59) L 12/05/24 10:04
ALT 23 U/L (0-50) 12/05/24 10:04
Alkaline Phosphatase 90 U/L (38-126) 12/05/24 10:04
Most recent labs reviewed.
Micro Results:
12/05/24 13:04 Wound Culture - Preliminary
Foot - Right Staphylococcus lugdunensis
Gram Stain - Preliminary
12/05/24 13:04 Anaerobic Culture - Preliminary
Foot - Right Culture pending. Anaerobic cultures are examined after 3
days incubation. Additional information to follow.
12/03/24 13:00 Blood Culture - Final
Blood/Venous No Growth - Final Report
12/03/24 12:30 Blood Culture - Final
Blood/Venous No Growth - Final Report
12/03/24 12:30 Wound Culture - Final
Foot - Right Gram Stain - Final
Imaging:
12/07/2024 MRI right lower extremity: postoperative changes with interval resection of the residual proximal phalanx of the great toe and distal first metatarsal. Signal changes in the area would favor reactive marrow edema/postoperative changes
rather than osteomyelitis. Hyperintense signal is noted in the second metatarsal head as well as proximal phalanx of the second toe. Findings may suggest early osteomyelitis as a possibility, although not definite.
12/03/2024 X-ray right foot: s/p partial amputation of great toe. Base of proximal phalanx remains. No evidence of bony destruction.
[2024-12-09] MEDS: DULCOLAX 10 MG RECTAL (10:27)
[2024-12-09] MEDS: MILK OF MAGNESIA 30 ML PO (10:28)
[2024-12-09] MEDS: NSS 1000 IV (10:29)
--- NOTE | 2024-12-09 11:17 | W.PN.VS ---
Today's Communication / Plan
-
Seen and assessed with Dr De La Garza
Assessment/Plan
-
Assessment: 59-year-old male with peripheral arterial disease status post left BKA and now with nonhealing right hallux amputation site concerning for infection.
POD 1 Stump debridement and RLE arteriogram with [employer] PT
Wound VAC applied to left stump site (4x2x0.5 measurements)
Wound care consult
Right foot wound per podiatry
Subjective Data
-
Date of Service: December 09, 2024
Pt seen at bedside this am with Dr De La Garza. Pt offers no complaints at this time. Scant drainage noted on stump dressing. No events overnight.
Objective Data
-
Vital Signs
Temp Pulse Resp BP Pulse Ox
98.0 F 90 16 147/83 98
12/09/24 08:22 12/09/24 09:00 12/09/24 08:22 12/09/24 09:00 12/09/24 08:22
Intake and Output
12/08/24 12/09/24 12/10/24
06:59 06:59 06:59
Intake Total 1660 / 1660 940 / 940
Output Total 2290 / 2290 1300 / 1300
Balance -630 / -630 -360 / -360
Intake:
Oral fluids 960 / 960 260 / 260
IV fluids (Total) 70 / 70 50 / 50
normosol 50 / 50
IV piggybacks 630 / 630
Blood products 630 / 630
Output:
Urine, Voided 2290 / 2290 1300 / 1300
Other:
Number of approximated MODERATE 2
amounts of urine
Lab Results
12/09/24 05:16
12/09/24 05:16
Calcium 9.3 mg/dl (8.4-10.2) 12/09/24 05:16
Magnesium 1.9 mg/dl (1.6-2.3) 12/05/24 10:04
Total Bilirubin 0.4 mg/dl (0.2-1.3) 12/05/24 10:04
AST 15 U/L (17-59) L 12/05/24 10:04
ALT 23 U/L (0-50) 12/05/24 10:04
Alkaline Phosphatase 90 U/L (38-126) 12/05/24 10:04
Total Protein 6.2 g/dl (6.3-8.2) L 12/05/24 10:04
Albumin 3.3 g/dl (3.5-5.0) L 12/05/24 10:04
Physical Exam
-
AAOx3
No tachypnea on RA
Clerical Support tachycarida
Abd soft, Non Tender and Non Distended
BL upper legs with moderate edema
Right foot wrapped with surgical dressing no drainage noted
Left stump site with scant blood ooz, VAC applied
--- NOTE | 2024-12-09 11:45 | WOUNDNOTE ---
WOC RN NOTE: Patient with vac placement to left stump by Vascular on 12/08. Vac entered into [employer] web site and replacement vac ordered by this flex o writer operator. Per order note, [facility] will change vac on Wednesday 12/13. Plan is for SNF.
--- NOTE | 2024-12-09 11:46 | W.PN.HOSP.TC ---
Today's Communication/Plan
-
IV antibiotics. IVF. Postop wound care.
Assessment / Plan
Assessment / Plan
Physical exam:
General: Acutely ill
HEENT: Normocephalic, Atraumatic and Moist Mucous Membranes
Respiratory: Clear to Auscultation; Negative Wheezes, Rales or Rhonchi
Cardiac: Regular Rhythm and S1/S2
GI: Soft, Nontender and Nondistended
Musculoskeletal: Left BKA stump wound gauzes with bloody discharge. Right foot wrapped and C/D/I wound. No Clubbing, No Cyanosis.
Neuro: Awake, Alert and Oriented, no neurological deficit
Psych: Calm
A/P:
Right foot cellulitis and necrosis in the setting of PVD, diabetes mellitus, and resection of the base of the proximal phalanx and partial first metatarsal with partial closure:
Continue IV antibiotics, Zosyn and vancomycin
ID consult appreciated--> awaiting final recommendations of antibiotics per ID it looks like she will require a prolonged 6 weeks course.
ID reorder MRI and findings concerning for osteomyelitis of the second met head and proximal phalanx.
Podiatry did debridement on 12/05 and cultures taken and growing staph lugdumensis
Blood cultures no growth
Vascular date left stump site debridement with wound VAC placement and right lower extremity arteriogram with OPAL MINER PT on 12/08
Podiatry recommended continue wound care and can weight-bear with DH pressure-relief shoe and elevate foot when at rest
Continue current pain medications regimen
PT OT recommended skilled rehab
Follow-up daily BMP especially while on the combo of Zosyn and vancomycin known to potentially cause nephrotoxicity therefore pay careful attention of renal function.
Discussed with and son prior.
LINDY:
IV fluids
Hold Farxiga, HCTZ, lisinopril
Monitor Vanco trough levels closely
Avoid nephrotoxics
Repeat renal function in a.m.
Constipation:
Aggressive bowel regimen
Hypertension:
Continue home antihypertensives
Hyperlipidemia:
Continue home statin
Diabetes mellitus type 2:
Insulin sliding scale
Holding Farxiga
Holding metformin
DVT prophylaxis:
Lovenox
CODE STATUS:
Full code
Total time spent on today's encounter was 52 minutes which included time spent in counseling the patient/family regarding diagnosis and treatment plan as listed above, goals of care, and symptom management. Case was discussed with nursing staff,
specialists, and care coordinators/case management. All labs and imaging personally reviewed by me. Remainder the time spent in detailed review of previous records, lab data, imaging, and other medical provider documentation.
Anticipated Discharge: 24 - 48 hours
Subjective/Interval History
-
Date of Service: December 09, 2024
Patient had mild blood streak from left stump gauzes, right foot pain improved overall, no chest pain or shortness of breath. Afebrile (although on scheduled Tylenol for pain)
Objective Data
-
Labs:
Laboratory Results
12/09/24
05:16
WBC 12.9 H
Hgb 8.2 L
Hct 25.7 L
Plt Count 581 H
Sodium 137
Potassium 4.8
Chloride 104
Carbon Dioxide 22
BUN 32 H
Creatinine 1.4 H
Glucose 155 H
Calcium 9.3
Vital Signs:
Vital Signs
Temp Pulse Resp BP Pulse Ox
98.0 F 90 16 147/83 98
12/09/24 08:22 12/09/24 09:00 12/09/24 08:22 12/09/24 09:00 12/09/24 08:22
I&O
12/08/24 12/09/24 12/10/24
06:59 06:59 06:59
Intake Total 1660 / 1660 940 / 940
Output Total 2290 / 2290 1300 / 1300
Balance -630 / -630 -360 / -360
[2024-12-09 11:50] LABS: Glucose - Point of Care 165 mg/dl (70-99)
[2024-12-09] MEDS: NOVOLOG FLEXPEN-LOW RESISTANCE 1 UNITS SC (12:19)
[2024-12-09] MEDS: VANCOCIN 275 MG IV (12:19)
[2024-12-09] MEDS: DILAUDID 0.5 MG IV (12:22)
[2024-12-09] MEDS: SENOKOT PO (14:33)
[2024-12-09] MEDS: DUPHALAC/CHRONULAC PO (14:33)
[2024-12-09] MEDS: MIRALAX PO (14:33)
--- NOTE | 2024-12-09 14:46 | CM ---
Reviewed the chart notes. POD 1 Stump debridement and RLE arteriogram with PERSONAL LINES ADVISOR PT. Per ID note, will likely require 6-week course of antibiotics in an attempt to salvage the limb. CM continues to be available to patient/family and is monitoring
medical plan for needs at discharge.
Plan: Discharge to SNF for IV abx and rehab once medically stable, bed secured and auth obtained.
--- NOTE | 2024-12-09 14:52 | PTCARENOTE ---
Pt refusing all of bowel regimen other than suppository and MOM. Wants to see if these work first, no new orders at this time.
--- NOTE | 2024-12-09 15:22 | W.PN.UPDATE ---
Update Note
Progress Note Update
Discussed with patient, his son, and Dr. Heath. Discussed findings on angiogram, distal severe occlusive disease. My recommendation is that we attempt a TMA and see if we can get it to heal. Would be ideal to prevent bilateral amputations
below the knee. Dr. Heath will consider and discussed with patient. Patient and his son both understand no guarantee in terms of success with TMA. May end up requiring BKA eventually.
[2024-12-09 16:59] LABS: Glucose - Point of Care 142 mg/dl (70-99)
[2024-12-09] MEDS: LOVENOX 40 MG SC (17:11)
[2024-12-09] MEDS: SENOKOT 8.6 MG PO (20:54)
[2024-12-09 21:21] LABS: Glucose - Point of Care 124 mg/dl (70-99)
[2024-12-10] MEDS: DILAUDID 0.5 MG IV ×4 (00:48→20:10)
[2024-12-10 03:00] VITALS: BP 150/73
[2024-12-10] MEDS: ZOSYN 50 IV ×4 (03:25→21:40)
[2024-12-10] MEDS: TYLENOL 1000 MG PO ×3 (03:26→17:39)
[2024-12-10 06:54] VITALS: BP 154/78
[2024-12-10 07:01] LABS: Glucose - Point of Care 204 mg/dl (70-99)
[2024-12-10 07:52] LABS: Hematocrit 23.0 % (39.0-52.0); Hemoglobin 7.5 g/dL (13.0-18.0); Mean Corp Hgb Conc. 32.6 g/dL (33.0-37.0); Mean Corpuscular Volume 87.8 fL (80.0-94.0); Nucleated Red Blood Cells % 0 % (-); Platelet Count 506 10^3/uL (130-400); Red Cell Dist. Width 13.8 % (11.5-14.5)
--- NOTE | 2024-12-10 08:29 | W.PN.HOSP.TC ---
Today's Communication/Plan
-
IV antibiotics. Podiatry reeval
Assessment / Plan
Assessment / Plan
Physical exam:
General: Acutely ill
HEENT: Normocephalic, Atraumatic and Moist Mucous Membranes
Respiratory: Clear to Auscultation; Negative Wheezes, Rales or Rhonchi
Cardiac: Regular Rhythm and S1/S2
GI: Soft, Nontender and Nondistended
Musculoskeletal: Left BKA stump wound gauzes with bloody discharge. Right foot wrapped and C/D/I wound. No Clubbing, No Cyanosis.
Neuro: Awake, Alert and Oriented, no neurological deficit
Psych: Calm
A/P:
Right foot cellulitis and necrosis in the setting of PVD, diabetes mellitus, and resection of the base of the proximal phalanx and partial first metatarsal with partial closure:
Continue IV antibiotics, Zosyn and vancomycin
ID consult appreciated--> awaiting final recommendations of antibiotics per ID it looks like she will require a prolonged 6 weeks course.
ID reorder MRI and findings concerning for osteomyelitis of the second met head and proximal phalanx.
Podiatry did debridement on 12/05 and cultures taken and growing staph lugdumensis.
Blood cultures no growth
Vascular date left stump site debridement with wound VAC placement and right lower extremity arteriogram with ENGINEERING ANALYST PT on 12/08. Vascular discussed with patient that he will likely need TMA amputation and podiatry will reevaluate.
Podiatry recommended continue wound care and can weight-bear with DH pressure-relief shoe and elevate foot when at rest but final recommendations pending after reevaluation.
Continue current pain medications regimen
PT OT recommended skilled rehab
Follow-up daily BMP especially while on the combo of Zosyn and vancomycin known to potentially cause nephrotoxicity therefore pay careful attention of renal function.
Discussed with and son prior.
LINDY:
Creatinine improved with IV fluids; creatinine today 1.1 from 1.4 yesterday
Stop IV fluids
Hold Farxiga, HCTZ, lisinopril and resume tomorrow if renal function remained stable
Monitor Vanco trough levels closely
Avoid nephrotoxics
Repeat renal function in a.m.
Constipation:
Continue aggressive bowel regimen
Hypertension:
Continue holding some home antihypertensives and IV hydralazine as needed
Resume medications tomorrow
Hyperlipidemia:
Continue home statin
Diabetes mellitus type 2:
Insulin sliding scale
Holding Farxiga
Holding metformin
DVT prophylaxis:
Lovenox
CODE STATUS:
Full code
Time spent 35 minutes
Anticipated Discharge: > 48 hours
Subjective/Interval History
-
Date of Service: December 10, 2024
Patient denies any chest pain or shortness of breath. Afebrile
Objective Data
-
Labs:
Laboratory Results
12/10/24
07:33
WBC 11.0 H
Hgb 7.5 L
Hct 23.0 L
Plt Count 506 H
Sodium Pending
Potassium Pending
Chloride Pending
Carbon Dioxide Pending
BUN Pending
Creatinine Pending
Glucose Pending
Calcium Pending
Vital Signs:
Vital Signs
Temp Pulse Resp BP Pulse Ox
98 F 83 17 154/78 98
12/10/24 06:54 12/10/24 06:54 12/10/24 06:54 12/10/24 06:54 12/10/24 06:54
I&O
12/09/24 12/10/24 12/11/24
06:59 06:59 06:59
Intake Total 940 / 940 1875 / 1875
Output Total 1300 / 1300 650 / 650
Balance -360 / -360 1225 / 1225
[2024-12-10 08:30] LABS: Blood Urea Nitrogen 27 mg/dl (9-20); Calcium 9.3 mg/dl (8.4-10.2); Carbon Dioxide 26 mmol/L (22-30); Chloride 104 mmol/L (98-107); Estimated Creatinine Clearance 90 ml/min; Glucose 98 mg/dl (70-99); Potassium 4.0 mmol/L (3.5-5.1); Sodium 136 mmol/L (135-145); eGFR > 60.00
--- NOTE | 2024-12-10 08:49 | PHA.VAN.FU ---
Addendum entered and electronically signed by Laquita Rodríguez [facility] 12/10/24 15:03:
BUN & SCR ordered per protocol
Original Note:
Vancomycin Assessment / Plan
- Assessment
Renal Function: SCR Decreasing
WBC's are: Trending Down
In the past 24 hrs, patient has been: Afebrile
Concomitant Antimicrobials: piperacillin/tazobactam
- Assessment - Therapeutic Drug Monitoring
Random Level: 15 - drawn ~19H after previous dose of 1250mg
- Dosing Plan
Dosing by Level: Re-dose today (Vanc 1250mg)
- Monitoring Plan
Random Level: 12/11 0600
- Follow Up
Pharmacy will continue to follow.
Vancomycin Follow UP
- -
Patient Age: 59
Patient Sex: Male
Vancomycin Day #: 8
Indication: Skin And Soft Tissue
Requesting Provider: Dr. Owens (resident) / Ananda
Pertinent Antimicrobial Allergies:
NKDA
Height / Weight:
Height 5 ft 11 in
Actual Weight 103.51 kg
Pertinent Past Medical History: T2DM, PAD
- Vital Signs / Lab Results
Temp Pulse Resp BP Pulse Ox
98 F 83 17 154/78 98
12/10/24 06:54 12/10/24 06:54 12/10/24 06:54 12/10/24 06:54 12/10/24 06:54
Lab Results - Hematology
12/08/24 12/09/24 12/10/24
06:12 05:16 07:33
WBC 11.0 H 12.9 H 11.0 H
Lab Results - Chemistry
12/08/24 12/09/24 12/10/24
06:12 05:16 07:33
BUN 22 H 32 H 27 H
Creatinine 1.2 1.4 H 1.1
Estimated Creat Clear 82 70 90
Microbiology Results
12/05/24 13:04 Anaerobic Culture - Preliminary
Foot - Right Culture pending. Anaerobic cultures are examined after 3
days incubation. Additional information to follow.
12/05/24 13:04 Wound Culture - Preliminary
Foot - Right Staphylococcus lugdunensis
Gram Stain - Preliminary
12/03/24 13:00 Blood Culture - Final
Blood/Venous No Growth - Final Report
12/03/24 12:30 Blood Culture - Final
Blood/Venous No Growth - Final Report
Therapeutic Drug Monitoring
Random Vancomycin 15.0 ug/ml 12/10/24 07:33
--- NOTE | 2024-12-10 09:35 | PTCARENOTE ---
Patient asked RN to come back after his zoom meeting for am medications and assessment
[2024-12-10] MEDS: CRESTOR 20 MG PO (09:53)
[2024-12-10] MEDS: DUPHALAC/CHRONULAC 20 GRAMS PO (09:54)
[2024-12-10] MEDS: LOW STRENGTH ASPIRIN 81 MG PO (09:54)
[2024-12-10] MEDS: MIRALAX 17 GRAMS PO (09:54)
[2024-12-10] MEDS: NORVASC 10 MG PO (09:54)
[2024-12-10] MEDS: CATAPRES 0.1 MG PO (09:54)
[2024-12-10] MEDS: APRESOLINE 50 MG PO (09:54)
[2024-12-10] MEDS: SENOKOT 8.6 MG PO ×2 (09:54→20:55)
[2024-12-10] MEDS: NOVOLOG FLEXPEN-LOW RESISTANCE SC ×3 (10:06→17:17)
[2024-12-10 10:07] LABS: Glucose - Point of Care 102 mg/dl (70-99)
[2024-12-10] MEDS: ROXICODONE 5 MG PO (10:40)
--- NOTE | 2024-12-10 11:28 | W.PN.ID1 ---
Date of Service
Date of Service: December 10, 2024
Today's Communication
Continue antibiotics.
Assessment / Plan
Left foot wound with dermal gangrene s/p debridement
Hx recent right hallux amputation
Leukocytosis
Limb threatening ischemia; s/p angiography (12/08/2024)
DM type II (uncontrolled; HbA1c = 7.7)
HTN
Anemia
HLD
Recommendations:
Prior wound cultures with Serratia marcescens. Current wound cultures with Staphylococcus lugdunensis
Continue with Zosyn 3.375 gm IV q.6 hours
Continue vancomycin. Follow Vanco levels closely to prevent nephrotoxicity.
MRI findings reviewed, and are concerning for osteomyelitis of the second met head and proximal phalanx given that the wound is overlying the concerned areas.
Chart reviewed, right TMA anticipated given severe underlying limb threatening ischemia. Await scheduling.
����������������������������������������������������������
Chief Complaint
-: Other (Right foot infection)
Subjective / Review of Systems
Review of Systems: No Fever and No Chills
Vital Signs / Physical Exam
Vital Signs
Vital Signs
Temp Pulse Resp BP Pulse Ox
98 F 83 17 154/78 98
12/10/24 06:54 12/10/24 06:54 12/10/24 06:54 12/10/24 06:54 12/10/24 06:54
Physical Exam
Constitutional: No Acute Distress, Comfortable, Chronically Ill and Non-toxic
Eyes: No Conjunctival Hemorrhage and Sclera Anicteric
Cardiovascular: S1/S2; Negative S3/S4
Pulmonary: Non Labored
Gastrointestinal: Soft and Non Tender
Extremities: Other (Right foot with dorsal wound. Slough in the base. Medial area of dry dermal gangrene. No malodor.)
Musculoskeletal: Other (Left BKA. Stump dressed in Eulogio wrap)
Neurological: Awake and Alert
Psychological: Calm
Objective Data
Lab Data
Lab Results
12/10/24 07:33
12/10/24 07:33
Estimated Creat Clear 90 ml/min 12/10/24 07:33
Lactic Acid 1.1 mmol/L (0.7-2.0) 12/03/24 12:56
Total Bilirubin 0.4 mg/dl (0.2-1.3) 12/05/24 10:04
AST 15 U/L (17-59) L 12/05/24 10:04
ALT 23 U/L (0-50) 12/05/24 10:04
Alkaline Phosphatase 90 U/L (38-126) 12/05/24 10:04
Most recent labs reviewed.
Micro Results:
12/05/24 13:04 Anaerobic Culture - Preliminary
Foot - Right Culture pending. Anaerobic cultures are examined after 3
days incubation. Additional information to follow.
12/05/24 13:04 Wound Culture - Preliminary
Foot - Right Staphylococcus lugdunensis
Gram Stain - Preliminary
12/03/24 13:00 Blood Culture - Final
Blood/Venous No Growth - Final Report
12/03/24 12:30 Blood Culture - Final
Blood/Venous No Growth - Final Report
12/03/24 12:30 Wound Culture - Final
Foot - Right Gram Stain - Final
Imaging:
12/07/2024 MRI right lower extremity: postoperative changes with interval resection of the residual proximal phalanx of the great toe and distal first metatarsal. Signal changes in the area would favor reactive marrow edema/postoperative changes
rather than osteomyelitis. Hyperintense signal is noted in the second metatarsal head as well as proximal phalanx of the second toe. Findings may suggest early osteomyelitis as a possibility, although not definite.
12/03/2024 X-ray right foot: s/p partial amputation of great toe. Base of proximal phalanx remains. No evidence of bony destruction.
[2024-12-10] MEDS: NSS IV ×2 (12:01→13:41)
[2024-12-10] MEDS: VANCOCIN 275 MG IV (12:02)
[2024-12-10] MEDS: NSS 1000 IV (12:05)
[2024-12-10 12:15] LABS: Glucose - Point of Care 140 mg/dl (70-99)
--- NOTE | 2024-12-10 14:13 | CM ---
Reviewed the chart notes and spoke with the patient at the bedside. [facility] and [facility] patient in [facility]. CM continues to be available to patient/family and is monitoring medical plan for needs at discharge.
Plan: Discharge to SNF/rehab prior to transitioning home. Auth will be required.
[2024-12-10 15:00] VITALS: BP 151/88
[2024-12-10 16:53] LABS: Glucose - Point of Care 108 mg/dl (70-99)
[2024-12-10] MEDS: SANTYL OINTMENT 1 APPLIC TOPICAL (17:38)
[2024-12-10] MEDS: LOVENOX 40 MG SC (17:38)
--- NOTE | 2024-12-10 18:38 | W.PN.POD ---
Today's Communication
Today's Communication
Pt stable per podiatry, he can wt bear to Rt foot with DH pressure relief shoe,
Assessment / Plan
-
S/p Rt foot debridement of necrotic tissue and resection of base of the proximal phalanx and 1st met head with partial primary closure POD #5
Diabetic small vessel disease
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
Rt partial hallux amputation 10/22/24
Plan ; ABX per ID
Changed surgical dressings to Rt foot, started Santyl oint to the rt foot 2,3 rd toes with minimal necrotic islands.
Discussed with patient about non healing, superficial necrotic changes and need for further proximal amputation may be necessary eventually, I have discussed about cont with current wound care treatment and if does not progress to granulation , will
proceed with TMA as a last attempt before BKA, Patient expressed interest to cont wound care for now and
He is aware of non healing and possible further mid foot amputation risk
No guarantees given to save his limb or life
Patient likely going to rehab, Dressings to RT foot with Santyl to only necrotic area with few saline drops and dry gauze and kerlix once daily
elevate foot when at rest
Can wt bear with DH pressure relief shoe
Subjective
Chief Complaint
Right foot infection with gangrenous changes
Subjective
patient seen at bedside, doing well, no new pedal complaints
Objective
Temp Pulse Resp BP Pulse Ox
98 F 87 17 151/88 98
12/10/24 15:00 12/10/24 15:00 12/10/24 15:00 12/10/24 15:00 12/10/24 15:00
12/10/24 07:33
12/10/24 07:33
Vital Signs and Lab results were reviewed.
Right foot non palpable pedal pulses
Warm to touch,
Rt foot surgical site is clean, no active oozing, slight necrotic skin wound edges noted. Superficial necrotic islands over the 2,3 rd digits as well.
No exposed tendons or bone, No more purulence noted, No crepitus felt
[2024-12-10] MEDS: FLUSH (NSS) 2 FLUSH IV ×2 (20:11→21:41)
[2024-12-10 21:50] LABS: Glucose - Point of Care 139 mg/dl (70-99)
[2024-12-10 23:17] VITALS: BP 123/69
[2024-12-11] MEDS: FLUSH (NSS) 2 FLUSH IV (03:05)
[2024-12-11] MEDS: TYLENOL 1000 MG PO ×3 (03:05→17:19)
[2024-12-11] MEDS: ZOSYN 50 IV ×4 (03:05→21:23)
--- NOTE | 2024-12-11 07:30 | W.PN.HOSP.TC ---
Today's Communication/Plan
-
Antibiotics. Resume medications.
Assessment / Plan
Assessment / Plan
Physical exam:
General: Acutely ill
HEENT: Normocephalic, Atraumatic and Moist Mucous Membranes
Respiratory: Clear to Auscultation; Negative Wheezes, Rales or Rhonchi
Cardiac: Regular Rhythm and S1/S2
GI: Soft, Nontender and Nondistended
Musculoskeletal: Left BKA stump postop findings. Right foot wrapped and C/D/I wound. No Clubbing, No Cyanosis.
Neuro: Awake, Alert and Oriented, no neurological deficit
Psych: Calm
A/P:
Right foot cellulitis and necrosis in the setting of PVD, diabetes mellitus, and resection of the base of the proximal phalanx and partial first metatarsal with partial closure:
Continue IV antibiotics, Zosyn and vancomycin
ID consult appreciated--> awaiting final recommendations of antibiotics per ID it looks like he will require a prolonged 6 weeks course so will wait for final ID recommendations.
ID reorder MRI and findings concerning for osteomyelitis of the second met head and proximal phalanx.
Podiatry did debridement on 12/05 and cultures taken and growing staph lugdumensis.
Blood cultures no growth
Vascular date left stump site debridement with wound VAC placement and right lower extremity arteriogram with COURT MONITOR PT on 12/08. Vascular discussed with patient that he will likely need TMA amputation and podiatry reevaluated the patient and
recommended to continue current wound care and outpatient antibiotic and will reevaluate as outpatient if and when he will require TMA amputation.
Podiatry recommended continue wound care and can weight-bear with DH pressure-relief shoe and elevate foot when at rest but final recommendations pending after reevaluation.
Continue current pain medications regimen
PT OT recommended skilled rehab
Follow-up daily BMP especially while on the combo of Zosyn and vancomycin known to potentially cause nephrotoxicity therefore pay careful attention of renal function.
Discussed with and son prior.
LINDY:
Improved
Off IV fluid
Resume Farxiga, HCTZ, lisinopril
Monitor Vanco trough levels closely
Avoid nephrotoxics
Repeat renal function in a.m.
Constipation:
Continue aggressive bowel regimen
Hypertension:
Continue holding some home antihypertensives and IV hydralazine as needed
Resume medications today
Hyperlipidemia:
Continue home statin
Diabetes mellitus type 2:
Insulin sliding scale
Resume Farxiga
Resume metformin
DVT prophylaxis:
Lovenox
CODE STATUS:
Full code
Time spent 37 minutes
Anticipated Discharge: 24 - 48 hours
Subjective/Interval History
-
Date of Service: December 11, 2024
No new complaints. No chest pain or shortness of breath. Afebrile
Objective Data
-
Labs:
Laboratory Results
12/11/24
06:00
BUN Pending
Creatinine Pending
Vital Signs:
Vital Signs
Temp Pulse Resp BP Pulse Ox
98.7 F 82 17 123/69 97
12/10/24 23:17 12/10/24 23:17 12/10/24 23:17 12/10/24 23:17 12/10/24 23:17
I&O
12/10/24 12/11/24 12/12/24
06:59 06:59 06:59
Intake Total 1875 / 1875 1650 / 1650
Output Total 650 / 650 3500 / 3500
Balance 1225 / 1225 -1850 / -1850
[2024-12-11 07:36] LABS: Glucose - Point of Care 99 mg/dl (70-99)
[2024-12-11] MEDS: NOVOLOG FLEXPEN-LOW RESISTANCE SC ×3 (07:38→16:40)
[2024-12-11 07:55] VITALS: BP 166/83
[2024-12-11] MEDS: DUPHALAC/CHRONULAC PO (08:18)
[2024-12-11] MEDS: APRESOLINE 50 MG PO (08:18)
[2024-12-11] MEDS: LOW STRENGTH ASPIRIN 81 MG PO (08:19)
[2024-12-11] MEDS: NORVASC 10 MG PO (08:20)
[2024-12-11] MEDS: CRESTOR 20 MG PO (08:20)
[2024-12-11] MEDS: SANTYL OINTMENT 1 APPLIC TOPICAL (08:20)
[2024-12-11] MEDS: SENOKOT 8.6 MG PO ×2 (08:20→20:26)
[2024-12-11] MEDS: CATAPRES 0.1 MG PO (08:20)
[2024-12-11] MEDS: MIRALAX 17 GRAMS PO (08:20)
[2024-12-11 08:56] LABS: Blood Urea Nitrogen 18 mg/dl (9-20); Estimated Creatinine Clearance 99 ml/min
--- NOTE | 2024-12-11 09:40 | PHA.VAN.FU ---
Vancomycin Assessment / Plan
- Assessment
Renal Function: SCR Decreasing
WBC's are: Trending Down
In the past 24 hrs, patient has been: Afebrile
Concomitant Antimicrobials: PIPERACILLIN/TAZOBACTAM
- Assessment - Therapeutic Drug Monitoring
Random Level: 9.1 DRAWN ~20H AFTER PREVIOUS 1250MG DOSE
- Dosing Plan
Dosing by Level: Re-dose today (VANCO 1500MG X1)
- Monitoring Plan
Random Level: 12/12 @0600
- Follow Up
Pharmacy will continue to follow.
Vancomycin Follow UP
- -
Patient Age: 59
Patient Sex: Male
Vancomycin Day #: 9
Indication: Skin And Soft Tissue
Requesting Provider: Dr. Owens (resident) / Ananda
Pertinent Antimicrobial Allergies:
NKDA
Height / Weight:
Height 5 ft 11 in
Actual Weight 103.51 kg
Pertinent Past Medical History: T2DM, PAD
- Vital Signs / Lab Results
Temp Pulse Resp BP Pulse Ox
98.2 F 99 16 166/83 99
12/11/24 07:55 12/11/24 08:18 12/11/24 07:55 12/11/24 08:18 12/11/24 07:55
Lab Results - Hematology
12/09/24 12/10/24
05:16 07:33
WBC 12.9 H 11.0 H
Lab Results - Chemistry
12/09/24 12/10/24 12/11/24
05:16 07:33 07:50
BUN 32 H 27 H 18
Creatinine 1.4 H 1.1 1.0
Estimated Creat Clear 70 90 99
Microbiology Results
12/05/24 13:04 Wound Culture - Final
Foot - Right Staphylococcus lugdunensis
Gram Stain - Final
12/05/24 13:04 Anaerobic Culture - Final
Foot - Right Bacteroides fragilis
Therapeutic Drug Monitoring
Random Vancomycin 9.1 ug/ml 12/11/24 07:50
[2024-12-11] MEDS: VANCOCIN 530 MG IV (11:11)
[2024-12-11 12:21] LABS: Glucose - Point of Care 148 mg/dl (70-99)
[2024-12-11 16:03] VITALS: BP 136/75
[2024-12-11 16:22] LABS: Glucose - Point of Care 119 mg/dl (70-99)
[2024-12-11] MEDS: LOVENOX 40 MG SC (17:19)
[2024-12-11 21:43] LABS: Glucose - Point of Care 142 mg/dl (70-99)
[2024-12-11 23:24] VITALS: BP 161/88
[2024-12-12] MEDS: TYLENOL 1000 MG PO ×3 (03:08→17:29)
[2024-12-12] MEDS: ZOSYN 50 IV ×4 (03:09→21:01)
[2024-12-12] MEDS: FLUSH (NSS) 2 FLUSH IV (03:11)
[2024-12-12] MEDS: DILAUDID 0.5 MG IV ×2 (03:33→20:46)
[2024-12-12 06:58] LABS: Hematocrit 25.4 % (39.0-52.0); Hemoglobin 8.2 g/dL (13.0-18.0); Mean Corp Hgb Conc. 32.3 g/dL (33.0-37.0); Mean Corpuscular Volume 87.6 fL (80.0-94.0); Nucleated Red Blood Cells % 0 % (-); Platelet Count 550 10^3/uL (130-400); Red Cell Dist. Width 13.5 % (11.5-14.5)
[2024-12-12 07:27] LABS: Blood Urea Nitrogen 14 mg/dl (9-20); Calcium 9.6 mg/dl (8.4-10.2); Carbon Dioxide 24 mmol/L (22-30); Chloride 106 mmol/L (98-107); Estimated Creatinine Clearance 110 ml/min; Glucose 99 mg/dl (70-99); Potassium 3.9 mmol/L (3.5-5.1); Sodium 137 mmol/L (135-145); eGFR > 60.00
--- NOTE | 2024-12-12 07:59 | PHA.VAN.FU ---
Vancomycin Assessment / Plan
- Assessment
Renal Function: SCR Decreasing
WBC's are: Trending Down
In the past 24 hrs, patient has been: Afebrile
Concomitant Antimicrobials: PIPERACILLIN/TAZOBACTAM
- Assessment - Therapeutic Drug Monitoring
Random Level: 10.3 DRAWN ~19H AFTER PREVIOUS DOSE
- Dosing Plan
Adjust Regimen to: VANCO 1250MG Q12H
New Regimen Predicts: AUC (465), Peak (30.4), Trough (11.1)
- Monitoring Plan
No level(s) ordered at this time: CONSIDER LEVEL PRIOR TO 4TH MAINTENANCE DOSE
- Follow Up
Pharmacy will continue to follow.
Vancomycin Follow UP
- -
Patient Age: 59
Patient Sex: Male
Vancomycin Day #: 10
Indication: Skin And Soft Tissue
Requesting Provider: Dr. Owens (resident) / Ananda
Pertinent Antimicrobial Allergies:
NKDA
Height / Weight:
Height 5 ft 11 in
Actual Weight 103.51 kg
Pertinent Past Medical History: T2DM, PAD
- Vital Signs / Lab Results
Temp Pulse Resp BP Pulse Ox
98.4 F 85 15 161/88 99
12/11/24 23:24 12/11/24 23:24 12/11/24 23:24 12/11/24 23:24 12/11/24 23:24
Lab Results - Hematology
12/10/24 12/12/24
07:33 06:27
WBC 11.0 H 10.4
Lab Results - Chemistry
12/10/24 12/11/24 12/12/24
07:33 07:50 06:27
BUN 27 H 18 14
Creatinine 1.1 1.0 0.9
Estimated Creat Clear 90 99 110
Microbiology Results
12/05/24 13:04 Wound Culture - Final
Foot - Right Staphylococcus lugdunensis
Gram Stain - Final
12/05/24 13:04 Anaerobic Culture - Final
Foot - Right Bacteroides fragilis
Therapeutic Drug Monitoring
Random Vancomycin 10.3 ug/ml 12/12/24 06:27
[2024-12-12 08:07] VITALS: BP 165/83
[2024-12-12 08:07] LABS: Glucose - Point of Care 112 mg/dl (70-99)
[2024-12-12] MEDS: VANCOCIN 275 MG IV ×2 (08:39→16:06)
[2024-12-12] MEDS: NOVOLOG FLEXPEN-LOW RESISTANCE SC ×3 (08:39→17:39)
[2024-12-12] MEDS: MIRALAX 17 GRAMS PO (08:40)
[2024-12-12] MEDS: FARXIGA 10 MG PO (08:40)
[2024-12-12] MEDS: SANTYL OINTMENT 1 APPLIC TOPICAL (08:40)
[2024-12-12] MEDS: DUPHALAC/CHRONULAC 20 GRAMS PO (08:40)
[2024-12-12] MEDS: NORVASC 10 MG PO (08:40)
--- NOTE | 2024-12-12 08:40 | W.PN.HOSP.TC ---
Addendum entered and electronically signed by Chris Christopher MD 12/12/24 13:01:
No need for IV hydralazine extra dose today since patient's blood pressure improved after his oral regular antihypertensive regimen.
Original Note:
Today's Communication/Plan
-
Antibiotics. Discharge planning
Assessment / Plan
Assessment / Plan
Physical exam:
General: Acutely ill
HEENT: Normocephalic, Atraumatic and Moist Mucous Membranes
Respiratory: Clear to Auscultation; Negative Wheezes, Rales or Rhonchi
Cardiac: Regular Rhythm and S1/S2
GI: Soft, Nontender and Nondistended
Musculoskeletal: Left BKA stump postop findings. Right foot wrapped and C/D/I wound. No Clubbing, No Cyanosis.
Neuro: Awake, Alert and Oriented, no neurological deficit
Psych: Calm
A/P:
Right foot cellulitis and necrosis in the setting of PVD, diabetes mellitus, and resection of the base of the proximal phalanx and partial first metatarsal with partial closure:
Continue IV antibiotics, Zosyn and vancomycin
ID consult appreciated--> discussed with ID today on 12/12 and per ID it looks like he will require a prolonged 6 weeks course.
MRI foot concerning for osteomyelitis of the second met head and proximal phalanx.
Podiatry did debridement on 12/05 and cultures taken and growing Staph Lugdumensis and Bacteroides fragilis. Podiatry recommended continue wound care and can weight-bear on right foot with DH pressure-relief shoe. It is possible he might need TMA
or furthermore BKA if wound does not heal as expected therefore will need very close follow-up with podiatry and vascular.
Blood cultures no growth
Vascular did left stump site debridement with wound VAC placement and right lower extremity arteriogram with CLAMP REMOVER PT on 12/08.
Continue current pain medications regimen
PT OT recommended skilled rehab
Follow-up daily BMP especially while on the combo of Zosyn and vancomycin known to potentially cause nephrotoxicity therefore pay careful attention of renal function.
Discussed with and son prior.
manager generation for discharge disposition
LINDY:
Resolved and stable
Avoid nephrotoxics
Repeat renal function in a.m.
Dry eye:
Eyedrops for few days
Constipation:
Continue bowel regimen
Hypertension:
Add IV hydralazine x 1 today and reevaluate if need further adjustment on his home regimen
His antihypertensive were on hold and restarted yesterday so give him more time and reevaluate.
Hyperlipidemia:
Continue home statin
Diabetes mellitus type 2:
Insulin sliding scale
Continue Farxiga and metformin
DVT prophylaxis:
Lovenox SQ
CODE STATUS:
Full code
Time spent 35 minutes
Anticipated Discharge: 24 - 48 hours
Subjective/Interval History
-
Date of Service: December 12, 2024
Patient complains of mild eye dryness. No chest pain or shortness of breath. Pain in his foot and stump is tolerable with current regimen. Afebrile
Objective Data
-
Labs:
Laboratory Results
12/12/24
06:27
WBC 10.4
Hgb 8.2 L
Hct 25.4 L
Plt Count 550 H
Sodium 137
Potassium 3.9
Chloride 106
Carbon Dioxide 24
BUN 14
Creatinine 0.9
Glucose 99
Calcium 9.6
Vital Signs:
Vital Signs
Temp Pulse Resp BP Pulse Ox
98.3 F 81 16 165/83 98
12/12/24 08:07 12/12/24 08:07 12/12/24 08:07 12/12/24 08:07 12/12/24 08:07
I&O
12/11/24 12/12/24 12/13/24
06:59 06:59 06:59
Intake Total 1650 / 1650 1530 / 1530
Output Total 3500 / 3500 3060 / 3060
Balance -1850 / -1850 -1530 / -1530
[2024-12-12] MEDS: ORETIC 25 MG PO (08:41)
[2024-12-12] MEDS: CRESTOR 20 MG PO (08:41)
[2024-12-12] MEDS: CATAPRES 0.1 MG PO (08:41)
[2024-12-12] MEDS: ZESTRIL 40 MG PO (08:42)
[2024-12-12] MEDS: LOW STRENGTH ASPIRIN 81 MG PO (08:42)
[2024-12-12] MEDS: SENOKOT 8.6 MG PO ×2 (08:42→20:42)
[2024-12-12] MEDS: APRESOLINE 50 MG PO (08:42)
--- NOTE | 2024-12-12 09:14 | W.PN.ID1 ---
Date of Service
Date of Service: December 12, 2024
Today's Communication
Continue antibiotics.
Assessment / Plan
Left foot wound with dermal gangrene s/p debridement
Hx recent right hallux amputation
Leukocytosis
Limb threatening ischemia; s/p angiography (12/08/2024)
DM type II (uncontrolled; HbA1c = 7.7)
HTN
Anemia
HLD
Recommendations:
Prior wound cultures with Serratia marcescens. Current wound cultures with Staphylococcus lugdunensis and Bacteroides fragilis
MRI findings reviewed, and are concerning for osteomyelitis of the second met head and proximal phalanx given that the wound is overlying the concerned areas.
Continue with Zosyn 3.375 gm IV q.6 hours
Continue vancomycin. Follow Vanco levels closely to prevent nephrotoxicity.
Will need 6 weeks of abx therapy.
Given underlying profound vascular disease, patient is extremely high risk for limb loss.
����������������������������������������������������������
Chief Complaint
-: Other (Right foot infection)
Subjective / Review of Systems
Patient seen and examined. Reports no issues with antibiotics thus far. Denies significant pain.
Review of Systems: No Fever and No Chills
Vital Signs / Physical Exam
Vital Signs
Vital Signs
Temp Pulse Resp BP Pulse Ox
98.3 F 81 16 165/83 98
12/12/24 08:07 12/12/24 08:42 12/12/24 08:07 12/12/24 08:42 12/12/24 08:07
Physical Exam
Constitutional: No Acute Distress, Comfortable, Chronically Ill and Non-toxic
Pulmonary: Non Labored
Gastrointestinal: Non Distended
Extremities: Other (Right foot with dorsal wound. VAC in place.)
Musculoskeletal: Other (Left BKA. Stump dressed in Eulogio wrap)
Neurological: Awake and Alert
Psychological: Calm
Objective Data
Lab Data
Lab Results
12/12/24 06:27
12/12/24 06:27
Estimated Creat Clear 110 ml/min 12/12/24 06:27
Lactic Acid 1.1 mmol/L (0.7-2.0) 12/03/24 12:56
Total Bilirubin 0.4 mg/dl (0.2-1.3) 12/05/24 10:04
AST 15 U/L (17-59) L 12/05/24 10:04
ALT 23 U/L (0-50) 12/05/24 10:04
Alkaline Phosphatase 90 U/L (38-126) 12/05/24 10:04
Most recent labs reviewed.
Micro Results:
12/05/24 13:04 Wound Culture - Final
Foot - Right Staphylococcus lugdunensis
Gram Stain - Final
12/05/24 13:04 Anaerobic Culture - Final
Foot - Right Bacteroides fragilis
12/03/24 13:00 Blood Culture - Final
Blood/Venous No Growth - Final Report
12/03/24 12:30 Blood Culture - Final
Blood/Venous No Growth - Final Report
12/03/24 12:30 Wound Culture - Final
Foot - Right Gram Stain - Final
Imaging:
12/07/2024 MRI right lower extremity: postoperative changes with interval resection of the residual proximal phalanx of the great toe and distal first metatarsal. Signal changes in the area would favor reactive marrow edema/postoperative changes
rather than osteomyelitis. Hyperintense signal is noted in the second metatarsal head as well as proximal phalanx of the second toe. Findings may suggest early osteomyelitis as a possibility, although not definite.
12/03/2024 X-ray right foot: s/p partial amputation of great toe. Base of proximal phalanx remains. No evidence of bony destruction.
[2024-12-12] MEDS: REFRESH CELLUVISC GEL 1 DROPS OPHTH (12:46)
[2024-12-12 12:48] LABS: Glucose - Point of Care 143 mg/dl (70-99)
[2024-12-12 12:53] VITALS: BP 121/76
[2024-12-12 16:09] VITALS: BP 133/67
[2024-12-12 17:27] LABS: Glucose - Point of Care 137 mg/dl (70-99)
[2024-12-12] MEDS: LOVENOX 40 MG SC (17:29)
[2024-12-12] MEDS: DULCOLAX 10 MG RECTAL (20:46)
[2024-12-12 21:29] LABS: Glucose - Point of Care 101 mg/dl (70-99)
[2024-12-12 23:50] VITALS: BP 156/83
[2024-12-13] MEDS: TYLENOL 1000 MG PO ×3 (03:00→17:56)
[2024-12-13] MEDS: ZOSYN 50 IV ×4 (03:14→21:03)
[2024-12-13] MEDS: VANCOCIN 275 MG IV ×2 (03:14→17:19)
[2024-12-13 06:38] LABS: Hematocrit 25.7 % (39.0-52.0); Hemoglobin 8.4 g/dL (13.0-18.0); Mean Corp Hgb Conc. 32.7 g/dL (33.0-37.0); Mean Corpuscular Volume 87.7 fL (80.0-94.0); Nucleated Red Blood Cells % 0 % (-); Platelet Count 552 10^3/uL (130-400); Red Cell Dist. Width 13.5 % (11.5-14.5)
[2024-12-13 07:06] LABS: Blood Urea Nitrogen 11 mg/dl (9-20); Calcium 9.6 mg/dl (8.4-10.2); Carbon Dioxide 23 mmol/L (22-30); Chloride 105 mmol/L (98-107); Estimated Creatinine Clearance 123 ml/min; Glucose 71 mg/dl (70-99); Potassium 4.0 mmol/L (3.5-5.1); Sodium 136 mmol/L (135-145); eGFR > 60.00
[2024-12-13 07:57] VITALS: BP 172/93
[2024-12-13 07:57] LABS: Glucose - Point of Care 84 mg/dl (70-99)
[2024-12-13] MEDS: NOVOLOG FLEXPEN-LOW RESISTANCE SC ×3 (08:14→17:54)
[2024-12-13] MEDS: DUPHALAC/CHRONULAC 20 GRAMS PO (08:15)
[2024-12-13] MEDS: ZESTRIL 40 MG PO (08:15)
[2024-12-13] MEDS: ORETIC 25 MG PO (08:16)
[2024-12-13] MEDS: NORVASC 10 MG PO (08:16)
[2024-12-13] MEDS: APRESOLINE 50 MG PO (08:16)
[2024-12-13] MEDS: CATAPRES 0.1 MG PO (08:16)
[2024-12-13] MEDS: REFRESH CELLUVISC GEL 1 DROPS OPHTH (08:17)
[2024-12-13] MEDS: CRESTOR 20 MG PO (08:17)
[2024-12-13] MEDS: SANTYL OINTMENT 1 APPLIC TOPICAL (08:17)
[2024-12-13] MEDS: SENOKOT 8.6 MG PO ×2 (08:17→21:03)
[2024-12-13] MEDS: FARXIGA 10 MG PO (08:17)
[2024-12-13] MEDS: LOW STRENGTH ASPIRIN 81 MG PO (08:20)
[2024-12-13] MEDS: MIRALAX PO (08:22)
--- NOTE | 2024-12-13 08:34 | W.PN.UPDATE ---
Update Note
Progress Note Update
I saw and evaluated the patient. I reviewed the resident�s note and agree with findings and plan as documented in the resident�s note.
Gen: NAD, AAOx3.
Eyes: EOMI, PERRLA, no scleral icterus.
Neck: supple.
CV: RRR, +S1/S2, no m/r/g.
Resp: CTAB, no rales, wheezes, or rhonchi.
Abd: +BS, soft, NT, ND
Skin: No rashes.
Neuro: CN 2-12 intact, non-focal.
Psych: Normal mood and affect.
12/05/24 13:04 Foot - Right Wound Culture - Final
Staphylococcus lugdunensis
12/05/24 13:04 Foot - Right Gram Stain - Final
12/05/24 13:04 Foot - Right Anaerobic Culture - Final
Bacteroides fragilis
12/03/24 13:00 Blood/Venous Blood Culture - Final
No Growth - Final Report
12/03/24 12:30 Blood/Venous Blood Culture - Final
No Growth - Final Report
12/03/24 12:30 Foot - Right Wound Culture - Final
12/03/24 12:30 Foot - Right Gram Stain - Final
Right foot cellulitis and necrosis in the setting of PVD, diabetes mellitus, and resection of the base of the proximal phalanx and partial first metatarsal with partial closure:
-MRI foot concerning for osteomyelitis of the second met head and proximal phalanx.
-Podiatry did debridement on 12/05 and cultures taken and growing Staph Lugdumensis and Bacteroides fragilis. Podiatry recommended continue wound care and can weight-bear on right foot with DH pressure-relief shoe. It is possible he might need TMA
or furthermore BKA if wound does not heal as expected therefore will need very close follow-up with podiatry and vascular.
-Vascular did left stump site debridement with wound VAC placement and right lower extremity arteriogram with LIVESTOCK SPECULATOR PT on 12/08
-pain control
-cont Zosyn/Vanco, will likely require 6 weeks abx as per ID
Other problems:
Obesity due to excess calories
LINDY, resolved
Constipation: cont bowel regimen
Essential HTN: cont Norvasc/Clonidine/Hydralazine/HCTZ/ACEi
HLD: cont statin
DM2: cont Farxiga/metformin/SSI
FULL/Lovenox
--- NOTE | 2024-12-13 10:53 | W.PN.ID1 ---
Date of Service
Date of Service: December 13, 2024
Today's Communication
Continue antibiotics.
Assessment / Plan
Left foot wound with dermal gangrene s/p debridement
Hx recent right hallux amputation
Leukocytosis
Limb threatening ischemia; s/p angiography (12/08/2024)
DM type II (uncontrolled; HbA1c = 7.7)
HTN
Anemia
HLD
Recommendations:
Prior wound cultures with Serratia marcescens. Current wound cultures with Staphylococcus lugdunensis and Bacteroides fragilis
MRI findings reviewed, and are concerning for osteomyelitis of the second met head and proximal phalanx given that the wound is overlying the concerned areas.
Continue with Zosyn 3.375 gm IV q.6 hours
Continue vancomycin. Follow Vanco levels closely to prevent nephrotoxicity.
Will need 6 weeks of abx therapy.
Given underlying profound vascular disease, patient is extremely high risk for limb loss.
����������������������������������������������������������
Chief Complaint
-: Other (Right foot infection)
Subjective / Review of Systems
Review of Systems: No Fever and No Chills
Vital Signs / Physical Exam
Vital Signs
Vital Signs
Temp Pulse Resp BP Pulse Ox
98.4 F 93 16 172/93 98
12/13/24 07:57 12/13/24 08:16 12/13/24 07:57 12/13/24 08:16 12/13/24 07:57
Physical Exam
Constitutional: No Acute Distress, Comfortable, Chronically Ill and Non-toxic
Pulmonary: Non Labored
Gastrointestinal: Non Distended
Extremities: Other (Right foot with dorsal wound, dressed. No strikethrough.)
Musculoskeletal: Other (Left BKA with VAC. Stump dressed in Eulogio wrap)
Neurological: Awake and Alert
Psychological: Calm
Objective Data
Lab Data
Lab Results
12/13/24 06:01
12/13/24 06:01
Estimated Creat Clear 123 ml/min 12/13/24 06:01
Lactic Acid 1.1 mmol/L (0.7-2.0) 12/03/24 12:56
Total Bilirubin 0.4 mg/dl (0.2-1.3) 12/05/24 10:04
AST 15 U/L (17-59) L 12/05/24 10:04
ALT 23 U/L (0-50) 12/05/24 10:04
Alkaline Phosphatase 90 U/L (38-126) 12/05/24 10:04
Most recent labs reviewed.
Micro Results:
12/05/24 13:04 Wound Culture - Final
Foot - Right Staphylococcus lugdunensis
Gram Stain - Final
12/05/24 13:04 Anaerobic Culture - Final
Foot - Right Bacteroides fragilis
12/03/24 13:00 Blood Culture - Final
Blood/Venous No Growth - Final Report
12/03/24 12:30 Blood Culture - Final
Blood/Venous No Growth - Final Report
12/03/24 12:30 Wound Culture - Final
Foot - Right Gram Stain - Final
Imaging:
12/07/2024 MRI right lower extremity: postoperative changes with interval resection of the residual proximal phalanx of the great toe and distal first metatarsal. Signal changes in the area would favor reactive marrow edema/postoperative changes
rather than osteomyelitis. Hyperintense signal is noted in the second metatarsal head as well as proximal phalanx of the second toe. Findings may suggest early osteomyelitis as a possibility, although not definite.
12/03/2024 X-ray right foot: s/p partial amputation of great toe. Base of proximal phalanx remains. No evidence of bony destruction.
[2024-12-13 11:00] VITALS: BP 133/72
[2024-12-13 12:36] LABS: Glucose - Point of Care 108 mg/dl (70-99)
--- NOTE | 2024-12-13 14:11 | W.PN.HOSP.TC ---
Today's Communication/Plan
-
Continue conservative management for now
Assessment / Plan
Assessment / Plan
A/P:
#Right foot cellulitis and necrosis
#Patient with DM/PVD s/p
- Balloon angioplasty of right proximal anterior tibial artery severe focal stenosis with 3 mm angioplasty balloon.
Balloon angioplasty of the distal BRADLEY artery with 1.5 mm angioplasty balloon. 10/21/2024
-Right partial hallux amputation with primary closure of the Right big toe (10/22/2024).
-Resection of the base of the proximal phalanx and partial first metatarsal with partial closure:(12/05/2024)
-Selective cannulation of right posterior tibial artery with limited balloon angioplasty with 2 mm angioplasty balloon: (12/08/2024).
-Continue IV antibiotics, Zosyn and vancomycin for 6 weeks course.
-MRI foot concerning for osteomyelitis of the second met head and proximal phalanx.
-Podiatry recommended continue wound care and can weight-bear on right foot with DH pressure-relief shoe.
-Continue current pain medications regimen
-PT OT recommended skilled rehab
-Daily BMP; Zosyn and vancomycin are known to be nephrotoxic.
- Consider for likely right foot TMA or furthermore BKA if if conservative measures fail.
#LINDY:
-Resolved and stable
#Dry eye:
-Eyedrops for few days
#Constipation:
-Improving, Continue bowel regimen
#Hypertension:
Add IV hydralazine x 1 today and reevaluate if need further adjustment on his home regimen
His antihypertensive were on hold and restarted yesterday so give him more time and reevaluate.
Hyperlipidemia:
Continue home statin
Diabetes mellitus type 2:
Insulin sliding scale
Continue Farxiga and metformin
DVT prophylaxis:
Lovenox SQ
CODE STATUS:
Full code
Time spent 35 minutes
Anticipated Discharge: > 48 hours
Subjective/Interval History
-
Date of Service: December 13, 2024
59-year-old male past with history of hypertension, diabetes and peripheral vascular disease being managed for diabetic foot disease
Patient seen midline in bed no new complaints today.
Says pain is manageable.
Objective Data
-
Labs:
Laboratory Results
12/13/24
06:01
WBC 10.8
Hgb 8.4 L
Hct 25.7 L
Plt Count 552 H
Sodium 136
Potassium 4.0
Chloride 105
Carbon Dioxide 23
BUN 11
Creatinine 0.8
Glucose 71
Calcium 9.6
Vital Signs:
Vital Signs
Temp Pulse Resp BP Pulse Ox
98.4 F 77 16 133/72 98
12/13/24 07:57 12/13/24 11:00 12/13/24 07:57 12/13/24 11:00 12/13/24 07:57
I&O
12/12/24 12/13/24 12/14/24
06:59 06:59 06:59
Intake Total 1530 / 1530 2165 / 2165
Output Total 3060 / 3060 2475 / 2475
Balance -1530 / -1530 -310 / -310
Review of Systems
-
History Source: Patient
Constitutional: Reports No Symptoms
EENT: Reports No Symptoms Reported
Respiratory: Reports No Symptoms
Cardiac: Reports No Symptoms
Abdomen/GI: Reports No Symptoms
Genitourinary: Reports No Symptoms
Musculoskeletal: Reports Other (Foot pain)
Neuro: Reports No Symptoms
Endocrine: Reports No Symptoms
Hematologic / Lymphatic: Reports No Symptoms
Physical Exam
-
General: Well Developed, Well Nourished, No Apparent Distress, Comfortable and Conversant
HEENT: Normocephalic, Atraumatic, Moist Mucous Membranes and Anicteric
Respiratory: Clear to Auscultation
Cardiac: Regular Rhythm and S1/S2
GI: Soft, Nontender, Nondistended, Normal Bowel Sounds and No Hepatosplenomegaly
Musculoskeletal: No Clubbing, No Cyanosis, No Edema and Other (Wound dressing [right foot] clean and dry)
Neuro: Awake, AO x 3 and Nonfocal/Grossly Intact
Psych: Calm
--- NOTE | 2024-12-13 15:11 | PHA.VAN.FU ---
Vancomycin Assessment / Plan
- Assessment
Renal Function: SCR Decreasing (Scr 0.9-->0.8)
WBC's are: Stable
In the past 24 hrs, patient has been: Afebrile
Concomitant Antimicrobials: Piperacillin/tazobactam
- Dosing Plan
Will give 4th dose of vancomycin 1250mg Q12h tonight.
Then further doses based on Peak/trough levels.
- Monitoring Plan
Peak Level: 12/13 at 1930
Trough Level: 12/14 at 0530
- Follow Up
Pharmacy will continue to follow.
Vancomycin Follow UP
- -
Patient Age: 59
Patient Sex: Male
Vancomycin Day #: 11
Indication: Skin And Soft Tissue
Requesting Provider: Dr. Owens (resident) / Ananda
Pertinent Antimicrobial Allergies:
NKDA
Height / Weight:
Height 5 ft 11 in
Actual Weight 103.51 kg
Pertinent Past Medical History: T2DM, PAD
- Vital Signs / Lab Results
Temp Pulse Resp BP Pulse Ox
98.4 F 77 16 133/72 98
12/13/24 07:57 12/13/24 11:00 12/13/24 07:57 12/13/24 11:00 12/13/24 11:03
Lab Results - Hematology
12/12/24 12/13/24
06:27 06:01
WBC 10.4 10.8
Lab Results - Chemistry
12/11/24 12/12/24 12/13/24
07:50 06:27 06:01
BUN 18 14 11
Creatinine 1.0 0.9 0.8
Estimated Creat Clear 99 110 123
Therapeutic Drug Monitoring
Random Vancomycin 10.3 ug/ml 12/12/24 06:27
[2024-12-13 15:28] VITALS: BP 123/72
[2024-12-13] MEDS: DILAUDID 0.5 MG IV (16:49)
[2024-12-13 17:36] LABS: Glucose - Point of Care 112 mg/dl (70-99)
[2024-12-13] MEDS: LOVENOX 40 MG SC (17:56)
[2024-12-13 21:08] LABS: Glucose - Point of Care 91 mg/dl (70-99)
[2024-12-13 23:34] VITALS: BP 131/72
[2024-12-14] MEDS: TYLENOL PO (02:00)
[2024-12-14] MEDS: ZOSYN 50 IV ×4 (04:56→21:25)
[2024-12-14] MEDS: DILAUDID 0.5 MG IV ×3 (05:37→21:26)
[2024-12-14 05:51] LABS: Hematocrit 26.3 % (39.0-52.0); Hemoglobin 8.6 g/dL (13.0-18.0); Mean Corp Hgb Conc. 32.7 g/dL (33.0-37.0); Mean Corpuscular Volume 88.3 fL (80.0-94.0); Platelet Count 578 10^3/uL (130-400); Red Cell Dist. Width 14.0 % (11.5-14.5)
[2024-12-14 06:02] LABS: Blood Urea Nitrogen 15 mg/dl (9-20); Calcium 9.6 mg/dl (8.4-10.2); Carbon Dioxide 26 mmol/L (22-30); Chloride 104 mmol/L (98-107); Estimated Creatinine Clearance 99 ml/min; Glucose 92 mg/dl (70-99); Potassium 3.9 mmol/L (3.5-5.1); Sodium 138 mmol/L (135-145); eGFR > 60.00
[2024-12-14 07:14] VITALS: BP 134/75
--- NOTE | 2024-12-14 08:00 | PHA.VAN.FU ---
Vancomycin Assessment / Plan
- Assessment
Renal Function: Stable
WBC's are: WNL
In the past 24 hrs, patient has been: Afebrile
Concomitant Antimicrobials: piperacillin/tazobactam
- Assessment - Therapeutic Drug Monitoring
Extrapolated Cmax (mcg/mL): 29.4
Peak level was drawn: Appropriately (drawn ~2.2H after end of previous infusion)
Extrapolated Cmin (mcg/mL): 19.8
Trough Drawn: Appropriately
Levels were drawn: At steady state (drawn after 4th dose of Q12)
Calculated AUC (mcg*h/mL): 583
Calculated ke: 0.0377
Calculated half life (H): 18.4
Calculated Vd (L): 114
Calculated Vanc CL (ml/min): 71
- Dosing Plan
Adjust Regimen to: Vanc 1750mg Q24H
New Regimen Predicts: AUC (423), Peak (25.8), Trough (11.3)
Dosing Comments: will give one-time dose of 1250mg today and start regimen 12/15 0600
Patient will require Q24H interval based on half-life
- Monitoring Plan
No level(s) ordered at this time: consider levels in next few days
- Follow Up
Pharmacy will continue to follow.
Vancomycin Follow UP
- -
Patient Age: 59
Patient Sex: Male
Vancomycin Day #: 12
Indication: Skin And Soft Tissue
Requesting Provider: Dr. Owens (resident) / Ananda
Pertinent Antimicrobial Allergies:
NKDA
Height / Weight:
Height 5 ft 11 in
Actual Weight 103.51 kg
Pertinent Past Medical History: T2DM, PAD
- Vital Signs / Lab Results
Temp Pulse Resp BP Pulse Ox
98.2 F 83 18 131/72 98
12/13/24 23:34 12/13/24 23:34 12/13/24 23:34 12/13/24 23:34 12/14/24 00:24
Lab Results - Hematology
12/12/24 12/13/24 12/14/24
06:27 06:01 05:24
WBC 10.4 10.8 9.9
Lab Results - Chemistry
12/11/24 12/12/24 12/13/24
07:50 06:27 06:01
BUN 18 14 11
Creatinine 1.0 0.9 0.8
Estimated Creat Clear 99 110 123
12/14/24
05:24
BUN 15
Creatinine 1.0
Estimated Creat Clear 99
Therapeutic Drug Monitoring
Vancomycin Peak 27.0 ug/ml (18-26) H 12/13/24 21:02
Vancomycin Trough 19.7 ug/ml (5-20) 12/14/24 05:24
Random Vancomycin 10.3 ug/ml 12/12/24 06:27
[2024-12-14 08:14] LABS: Glucose - Point of Care 104 mg/dl (70-99)
--- NOTE | 2024-12-14 08:27 | W.PN.UPDATE ---
Update Note
Progress Note Update
I saw and evaluated the patient. I reviewed the resident�s note and agree with findings and plan as documented in the resident�s note.
No new complaints.
Gen: NAD, AAOx3.
Eyes: EOMI, PERRLA, no scleral icterus.
Neck: supple.
CV: remains RRR, +S1/S2, no m/r/g.
Resp: remains CTAB, no rales, wheezes, or rhonchi.
Abd: +BS, soft, NT, ND
Skin: No rashes.
Neuro: CN 2-12 intact, non-focal.
Psych: Normal mood and affect.
12/05/24 13:04 Foot - Right Wound Culture - Final
Staphylococcus lugdunensis
12/05/24 13:04 Foot - Right Gram Stain - Final
12/05/24 13:04 Foot - Right Anaerobic Culture - Final
Bacteroides fragilis
12/03/24 13:00 Blood/Venous Blood Culture - Final
No Growth - Final Report
12/03/24 12:30 Blood/Venous Blood Culture - Final
No Growth - Final Report
12/03/24 12:30 Foot - Right Wound Culture - Final
12/03/24 12:30 Foot - Right Gram Stain - Final
Right foot cellulitis and necrosis in the setting of PVD, diabetes mellitus, and resection of the base of the proximal phalanx and partial first metatarsal with partial closure:
-MRI foot concerning for osteomyelitis of the second met head and proximal phalanx.
-Podiatry did debridement on 12/05 and cultures taken and growing Staph Lugdumensis and Bacteroides fragilis. Podiatry recommended continue wound care and can weight-bear on right foot with DH pressure-relief shoe. It is possible he might need TMA
or furthermore BKA if wound does not heal as expected therefore will need very close follow-up with podiatry and vascular.
-Vascular did left stump site debridement with wound VAC placement and right lower extremity arteriogram with CLERK OPERATOR PT on 12/08
-pain control
-cont Zosyn/Vanco to complete 6 weeks abx as per ID (discussed with Dr. Malave)
Other problems:
Obesity due to excess calories
LINDY, resolved
Constipation: cont bowel regimen
Essential HTN: cont Norvasc/Clonidine/Hydralazine/HCTZ/ACEi
HLD: cont statin
DM2: cont Farxiga/metformin/SSI
FULL/Lovenox
Dispo: Place PICC, d/c today
[2024-12-14] MEDS: CRESTOR 20 MG PO (08:42)
[2024-12-14] MEDS: APRESOLINE 50 MG PO (08:42)
[2024-12-14] MEDS: SENOKOT 8.6 MG PO ×2 (08:42→20:57)
[2024-12-14] MEDS: NORVASC 10 MG PO (08:42)
[2024-12-14] MEDS: FARXIGA 10 MG PO (08:43)
[2024-12-14] MEDS: LOW STRENGTH ASPIRIN 81 MG PO (08:43)
[2024-12-14] MEDS: CATAPRES 0.1 MG PO (08:43)
[2024-12-14] MEDS: ZESTRIL 40 MG PO (08:43)
[2024-12-14] MEDS: DUPHALAC/CHRONULAC 20 GRAMS PO (08:44)
[2024-12-14] MEDS: NOVOLOG FLEXPEN-LOW RESISTANCE SC ×3 (08:44→17:07)
[2024-12-14] MEDS: SANTYL OINTMENT 1 APPLIC TOPICAL (08:45)
[2024-12-14] MEDS: MIRALAX PO (08:47)
[2024-12-14] MEDS: REFRESH CELLUVISC GEL 1 DROPS OPHTH (08:51)
[2024-12-14] MEDS: ORETIC 25 MG PO (08:52)
--- NOTE | 2024-12-14 08:58 | W.PN.HOSP.TC ---
Today's Communication/Plan
-
For continued conservative management of Foot wound
Assessment / Plan
Assessment / Plan
A/P:
#Right foot cellulitis and necrosis
#Patient with DM/PVD s/p
- (10/21/2024)
Balloon angioplasty of right proximal anterior tibial artery severe focal stenosis with 3 mm angioplasty balloon.
Balloon angioplasty of the distal BRADLEY artery with 1.5 mm angioplasty balloon.
-(10/22/2024).
Right partial hallux amputation with primary closure of the Right big toe
-(12/05/2024)
Resection of the base of the proximal phalanx and partial first metatarsal with partial closure:
-(12/08/2024).
Selective cannulation of right posterior tibial artery with limited balloon angioplasty with 2 mm angioplasty balloon:
-Continue IV antibiotics, Zosyn and vancomycin for 6 weeks course.
-MRI foot concerning for osteomyelitis of the second met head and proximal phalanx.
-Podiatry recommended continue wound care and can weight-bear on right foot with DH pressure-relief shoe.
-Continue current pain medications regimen
-For likely discharge today, CM informed
-PT OT recommended skilled rehab
- Consider for likely right foot TMA or furthermore BKA if if conservative measures fail.
-Fu with Podiatry Friday, outpatient.
-PICC for continued Abx use
#LINDY:
-Resolved and stable
#Dry eye:
-Eyedrops for few days
#Constipation:
-Improving, Continue bowel regimen
#Hypertension:
Lisinopril 40 Mg p.o. daily
Hydralazine 50 Mg p.o. daily
Hydrochlorothiazide 25 Mg p.o. daily
Hyperlipidemia:
Continue home statin
Diabetes mellitus type 2:
Insulin sliding scale
Continue Farxiga and metformin
DVT prophylaxis:
Lovenox SQ
CODE STATUS:
Full code
Anticipated Discharge: Today
Subjective/Interval History
-
Date of Service: December 14, 2024
59-year-old male past with history of hypertension, diabetes and peripheral vascular disease being managed for diabetic foot disease
Patient seen metin bed no new complaints today.
Says pain is manageable.
Objective Data
-
Labs:
Laboratory Results
12/14/24
05:24
WBC 9.9
Hgb 8.6 L
Hct 26.3 L
Plt Count 578 H
Sodium 138
Potassium 3.9
Chloride 104
Carbon Dioxide 26
BUN 15
Creatinine 1.0
Glucose 92
Calcium 9.6
Vital Signs:
Vital Signs
Temp Pulse Resp BP Pulse Ox
98.1 F 82 16 134/75 97
12/14/24 07:14 12/14/24 08:52 12/14/24 07:14 12/14/24 08:52 12/14/24 07:14
I&O
12/13/24 12/14/24 12/15/24
06:59 06:59 06:59
Intake Total 2165 / 2165 2140 / 2140
Output Total 2475 / 2475 2975 / 2975
Balance -310 / -310 -835 / -835
Review of Systems
-
History Source: Patient
Constitutional: Reports No Symptoms
EENT: Reports No Symptoms Reported
Respiratory: Reports No Symptoms
Cardiac: Reports No Symptoms
Abdomen/GI: Reports No Symptoms
Genitourinary: Reports No Symptoms
Musculoskeletal: Reports Other (Foot pain)
Neuro: Reports No Symptoms
Endocrine: Reports No Symptoms
Hematologic / Lymphatic: Reports No Symptoms
Physical Exam
-
General: Well Developed, Well Nourished, No Apparent Distress, Comfortable and Conversant
HEENT: Normocephalic, Atraumatic, Moist Mucous Membranes and Anicteric
Respiratory: Clear to Auscultation
Cardiac: Regular Rhythm and S1/S2
GI: Soft, Nontender, Nondistended and No Hepatosplenomegaly
Musculoskeletal: No Clubbing, No Cyanosis, No Edema and Other (Wound dressing [right foot] clean and dry)
Neuro: Awake, AO x 3 and Nonfocal/Grossly Intact
Psych: Calm
Data Reviewed
-
Labs: Labs Reviewed by me, Discussed with Physician and Discussed with Patient
[2024-12-14] MEDS: TYLENOL 1000 MG PO ×2 (10:29→17:06)
[2024-12-14 11:53] VITALS: BP 100/63; BP 139/74; BP 93/61; PULSE 85; PULSE 99
[2024-12-14 11:54] VITALS: BP 100/63; BP 139/74; BP 93/61
[2024-12-14] MEDS: VANCOCIN 275 MG IV (11:56)
[2024-12-14 11:57] LABS: Glucose - Point of Care 143 mg/dl (70-99)
--- NOTE | 2024-12-14 12:00 | W.PN.ID1 ---
Date of Service
Date of Service: December 14, 2024
Today's Communication
Continue antibiotics.
Assessment / Plan
Left foot wound with dermal gangrene s/p debridement
Hx recent right hallux amputation
Leukocytosis
Limb threatening ischemia; s/p angiography (12/08/2024)
DM type II (uncontrolled; HbA1c = 7.7)
HTN
Anemia
HLD
Recommendations:
Prior wound cultures with Serratia marcescens. Current wound cultures with Staphylococcus lugdunensis and Bacteroides fragilis
MRI findings reviewed, and are concerning for osteomyelitis of the second met head and proximal phalanx given that the wound is overlying the concerned areas.
Continue with Zosyn 3.375 gm IV q.6 hours
Continue vancomycin. Follow Vanco levels closely to prevent nephrotoxicity.
Antibiotics to continue through 01/18/2025.
Check weekly BMP, CBC with differential, ESR, CRP and Vanco trough.
Given underlying profound vascular disease, patient is extremely high risk for limb loss.
����������������������������������������������������������
Chief Complaint
-: Other (Right foot infection)
Subjective / Review of Systems
Review of Systems: No Fever and No Chills
Vital Signs / Physical Exam
Vital Signs
Vital Signs
Temp Pulse Resp BP Pulse Ox
98.1 F 82 16 134/75 97
12/14/24 07:14 12/14/24 08:52 12/14/24 07:14 12/14/24 08:52 12/14/24 10:01
Physical Exam
Constitutional: No Acute Distress, Comfortable, Chronically Ill and Non-toxic
Pulmonary: Non Labored
Gastrointestinal: Non Distended
Extremities: Other (Right foot with dorsal wound, dressed. Scant bloody strikethrough.)
Musculoskeletal: Other (Left BKA with VAC. Stump dressed in Eulogio wrap)
Neurological: Awake and Alert
Psychological: Calm
Objective Data
Lab Data
Lab Results
12/14/24 05:24
12/14/24 05:24
Estimated Creat Clear 99 ml/min 12/14/24 05:24
Lactic Acid 1.1 mmol/L (0.7-2.0) 12/03/24 12:56
Total Bilirubin 0.4 mg/dl (0.2-1.3) 12/05/24 10:04
AST 15 U/L (17-59) L 12/05/24 10:04
ALT 23 U/L (0-50) 12/05/24 10:04
Alkaline Phosphatase 90 U/L (38-126) 12/05/24 10:04
Most recent labs reviewed.
Micro Results:
12/05/24 13:04 Wound Culture - Final
Foot - Right Staphylococcus lugdunensis
Gram Stain - Final
12/05/24 13:04 Anaerobic Culture - Final
Foot - Right Bacteroides fragilis
12/03/24 13:00 Blood Culture - Final
Blood/Venous No Growth - Final Report
12/03/24 12:30 Blood Culture - Final
Blood/Venous No Growth - Final Report
12/03/24 12:30 Wound Culture - Final
Foot - Right Gram Stain - Final
dsgf
Wound/abscess/other Cult Final 12/05/24
Few Staphylococcus lugdunensis
Organism 1 Staphylococcus lugdunensis
1. Staphylococcus lugdunensis
M.I.C. RX
--------- ---
Amoxicillin/Potas. Clavulanate <=4/2 R
Ampicillin >8 R
Clindamycin <=0.5 S
Gentamicin <=4 S
Erythromycin <=0.5 S
Levofloxacin <=1 S
Oxacillin >2 R
Tetracycline <=4 S
Trimethoprim/Sulfamethoxazole <=0.5/9.5 S
Vancomycin 1 S
Wound/abscess/other Cult Final 10/22/24
Serratia marcescens from anaerobic culture swab
Organism 1 Serratia marcescens
1. Serratia marcescens
M.I.C. RX
--------- ---
Amoxicillin/Potas. Clavulanate >16 R
Ampicillin >16 R
Ampicillin/Sulbactam >168 R
Aztreonam <=4 S
Cefazolin >16 R
Cefepime <=2 S
Ceftazidime 4 S
Ceftriaxone <=1 S
Ertapenem <=0.5 S
Ciprofloxacin <=0.25 S
Gentamicin <=2 S
Meropenem <=1 S
Piperacillin/Tazobactam <=8 S
Tetracycline 8 I
Tobramycin <=2 S
Trimethoprim/Sulfamethoxazole <=2/38 S
Imaging:
12/07/2024 MRI right lower extremity: postoperative changes with interval resection of the residual proximal phalanx of the great toe and distal first metatarsal. Signal changes in the area would favor reactive marrow edema/postoperative changes
rather than osteomyelitis. Hyperintense signal is noted in the second metatarsal head as well as proximal phalanx of the second toe. Findings may suggest early osteomyelitis as a possibility, although not definite.
12/03/2024 X-ray right foot: s/p partial amputation of great toe. Base of proximal phalanx remains. No evidence of bony destruction.
--- NOTE | 2024-12-14 13:45 | CM ---
Addendum entered by Amada Nick RN 12/14/24 14:36:
[facility]
Call report to: [phone] - Nurse Shaneka
Fax report to: [phone]
Medical necessity and transport forms on chart.
Original Note:
Reviewed the chart notes and spoke with the patient at the bedside. The patient has been accepted at [facility]. Patient agreeable.
Auth approved 11/13-11/19; NRD 11/19 fax clinicals to [phone]; Auth # [id number]
Plan: Discharge to [facility]
[2024-12-14 15:20] VITALS: BP 121/66
--- NOTE | 2024-12-14 15:30 | WOUNDNOTE ---
WON RN NOTE: L BKA wound vac dressing changed, black foam to 125mmhg, brian wrap to secure. R foot dressing changed by nurses, Santyl remains in use. Dr. Heath following. Patient states no further surgery to be done on R foot, he wants to see
what antibiotics will do first. Nurse Klaus confirmed sacrum is blanchable red and patient got oob to commode today.
[2024-12-14] MEDS: LOVENOX 40 MG SC (17:04)
[2024-12-14 17:08] LABS: Glucose - Point of Care 120 mg/dl (70-99)
[2024-12-14 21:57] LABS: Glucose - Point of Care 95 mg/dl (70-99)
[2024-12-14 23:19] VITALS: BP 122/73
[2024-12-15] MEDS: TYLENOL 1000 MG PO ×3 (01:14→18:37)
[2024-12-15] MEDS: ZOSYN 50 IV ×4 (03:15→21:16)
[2024-12-15] MEDS: VANCOCIN 535 MG IV (05:27)
[2024-12-15 05:50] LABS: Hematocrit 24.5 % (39.0-52.0); Hemoglobin 7.9 g/dL (13.0-18.0); Mean Corp Hgb Conc. 32.2 g/dL (33.0-37.0); Mean Corpuscular Volume 87.8 fL (80.0-94.0); Platelet Count 505 10^3/uL (130-400); Red Cell Dist. Width 13.9 % (11.5-14.5)
[2024-12-15 06:21] LABS: Blood Urea Nitrogen 20 mg/dl (9-20); Calcium 9.9 mg/dl (8.4-10.2); Carbon Dioxide 25 mmol/L (22-30); Chloride 104 mmol/L (98-107); Estimated Creatinine Clearance 99 ml/min; Glucose 69 mg/dl (70-99); Potassium 3.8 mmol/L (3.5-5.1); Sodium 137 mmol/L (135-145); eGFR > 60.00
[2024-12-15 07:31] LABS: Glucose - Point of Care 97 mg/dl (70-99)
[2024-12-15 07:40] VITALS: BP 124/65
--- NOTE | 2024-12-15 08:17 | W.PN.UPDATE ---
Update Note
Progress Note Update
I saw and evaluated the patient. I reviewed the resident�s note and agree with findings and plan as documented in the resident�s note.
No new complaints.
Gen: NAD, AAOx3.
Eyes: EOMI, PERRLA, no scleral icterus.
Neck: supple.
CV: remains RRR, +S1/S2, no m/r/g.
Resp: remains CTAB, no rales, wheezes, or rhonchi.
Abd: +BS, soft, NT, ND
Skin: No rashes.
Neuro: CN 2-12 intact, non-focal.
Psych: Normal mood and affect.
12/05/24 13:04 Foot - Right Wound Culture - Final
Staphylococcus lugdunensis
12/05/24 13:04 Foot - Right Gram Stain - Final
12/05/24 13:04 Foot - Right Anaerobic Culture - Final
Bacteroides fragilis
12/03/24 13:00 Blood/Venous Blood Culture - Final
No Growth - Final Report
12/03/24 12:30 Blood/Venous Blood Culture - Final
No Growth - Final Report
12/03/24 12:30 Foot - Right Wound Culture - Final
12/03/24 12:30 Foot - Right Gram Stain - Final
Right foot cellulitis and necrosis in the setting of PVD, diabetes mellitus, and resection of the base of the proximal phalanx and partial first metatarsal with partial closure:
-MRI foot concerning for osteomyelitis of the second met head and proximal phalanx.
-Podiatry did debridement on 12/05 and cultures taken and growing Staph Lugdumensis and Bacteroides fragilis. Podiatry recommended continue wound care and can weight-bear on right foot with DH pressure-relief shoe. It is possible he might need TMA
or furthermore BKA if wound does not heal as expected therefore will need very close follow-up with podiatry and vascular.
-Vascular did left stump site debridement with wound VAC placement and right lower extremity arteriogram with [facility] PT on 12/08
-pain control
-cont Zosyn/Vanco to complete 6 weeks abx as per ID (discussed with Dr. Malave)
Other problems:
Obesity due to excess calories
LINDY, resolved
Constipation: cont bowel regimen
Essential HTN: cont Norvasc/Clonidine/Hydralazine/HCTZ/ACEi
HLD: cont statin
DM2: cont Farxiga/metformin/SSI
FULL/Lovenox
Remains medically stable for discharge since 12/14/24, case management aware.
[2024-12-15] MEDS: DUPHALAC/CHRONULAC 20 GRAMS PO (08:23)
[2024-12-15] MEDS: NOVOLOG FLEXPEN-LOW RESISTANCE SC ×3 (08:23→16:41)
[2024-12-15] MEDS: SANTYL OINTMENT 1 APPLIC TOPICAL (08:23)
[2024-12-15] MEDS: MIRALAX 17 GRAMS PO (08:23)
[2024-12-15] MEDS: FARXIGA 10 MG PO (08:24)
[2024-12-15] MEDS: CRESTOR 20 MG PO (08:24)
[2024-12-15] MEDS: NORVASC 10 MG PO (08:24)
[2024-12-15] MEDS: REFRESH CELLUVISC GEL 1 DROPS OPHTH (08:24)
[2024-12-15] MEDS: CATAPRES 0.1 MG PO (08:24)
[2024-12-15] MEDS: SENOKOT 8.6 MG PO ×2 (08:25→21:16)
[2024-12-15] MEDS: LOW STRENGTH ASPIRIN 81 MG PO (08:25)
[2024-12-15] MEDS: APRESOLINE 50 MG PO (08:25)
[2024-12-15] MEDS: ZESTRIL 40 MG PO (08:25)
[2024-12-15] MEDS: ORETIC 25 MG PO (08:26)
--- NOTE | 2024-12-15 08:29 | PHA.VAN.FU ---
Vancomycin Assessment / Plan
- Assessment
Renal Function: Stable
WBC's are: WNL
In the past 24 hrs, patient has been: Afebrile
Concomitant Antimicrobials: piperacillin/tazobactam
- Dosing Plan
Continue: Vanc 1750mg Q24H
- Monitoring Plan
No level(s) ordered at this time: consider levels in next few days
- Follow Up
Pharmacy will continue to follow.
Vancomycin Follow UP
- -
Patient Age: 59
Patient Sex: Male
Vancomycin Day #: 13
Indication: Skin And Soft Tissue
Requesting Provider: Dr. Owens (resident) / Ananda
Pertinent Antimicrobial Allergies:
NKDA
Height / Weight:
Height 5 ft 11 in
Actual Weight 103.51 kg
Pertinent Past Medical History: T2DM, PAD, BMI ~32
- Vital Signs / Lab Results
Temp Pulse Resp BP Pulse Ox
98.5 F 82 16 124/65 97
12/15/24 07:40 12/15/24 07:40 12/15/24 07:40 12/15/24 07:40 12/15/24 07:40
Lab Results - Hematology
12/13/24 12/14/24 12/15/24
06:01 05:24 05:31
WBC 10.8 9.9 8.7
Lab Results - Chemistry
12/13/24 12/14/24 12/15/24
06:01 05:24 05:31
BUN 11 15 20
Creatinine 0.8 1.0 1.0
Estimated Creat Clear 123 99 99
Therapeutic Drug Monitoring
Vancomycin Peak 27.0 ug/ml (18-26) H 12/13/24 21:02
Vancomycin Trough 19.7 ug/ml (5-20) 12/14/24 05:24
Random Vancomycin 10.3 ug/ml 12/12/24 06:27
--- NOTE | 2024-12-15 10:29 | W.PN.ID1 ---
Date of Service
Date of Service: December 15, 2024
Today's Communication
Continuing antibiotics.
Assessment / Plan
Left foot wound with dermal gangrene s/p debridement
Hx recent right hallux amputation
Leukocytosis
Limb threatening ischemia; s/p angiography (12/08/2024)
DM type II (uncontrolled; HbA1c = 7.7)
HTN
Anemia
HLD
Recommendations:
Prior wound cultures with Serratia marcescens. Current wound cultures with Staphylococcus lugdunensis and Bacteroides fragilis
MRI findings reviewed, and are concerning for osteomyelitis of the second met head and proximal phalanx given that the wound is overlying the concerned areas.
Continue with Zosyn 3.375 gm IV q.6 hours
Continue vancomycin. Follow Vanco levels closely to prevent nephrotoxicity.
Antibiotics to continue through 01/18/2025.
Check weekly BMP, CBC with differential, ESR, CRP and Vanco trough.
Case discussed with Wound Care. Given overall 'wetness/soupiness' over the wound, will need further absorption of drainage. Have packed wound with Mesalt.
Given underlying profound vascular disease, patient is extremely high risk for limb loss. Current wound does not appear to be healing.
����������������������������������������������������������
Chief Complaint
-: Other (Right foot infection)
Subjective / Review of Systems
Patient seen and examined. Denies specific complaints today. No difficulty with antibiotics thus far. No significant pain in right foot except when he makes it dependent.
Review of Systems: No Fever and No Chills
Vital Signs / Physical Exam
Vital Signs
Vital Signs
Temp Pulse Resp BP Pulse Ox
98.5 F 82 16 124/65 98
12/15/24 07:40 12/15/24 08:26 12/15/24 07:40 12/15/24 08:26 12/15/24 07:40
Physical Exam
Constitutional: No Acute Distress, Comfortable, Chronically Ill and Non-toxic
Pulmonary: Non Labored
Gastrointestinal: Non Distended
Extremities: Other (Right foot with dorsal wound, dressed. Scant bloody strikethrough.)
Musculoskeletal: Other (Left BKA with VAC. Stump dressed in Eulogio wrap)
Wound: Other (Right foot wound with 'soupy' appearance. Area probes to about 2 cm.)
Neurological: Awake and Alert
Psychological: Calm
Objective Data
Lab Data
Lab Results
12/15/24 05:31
12/15/24 05:31
Estimated Creat Clear 99 ml/min 12/15/24 05:31
Lactic Acid 1.1 mmol/L (0.7-2.0) 12/03/24 12:56
Total Bilirubin 0.4 mg/dl (0.2-1.3) 12/05/24 10:04
AST 15 U/L (17-59) L 12/05/24 10:04
ALT 23 U/L (0-50) 12/05/24 10:04
Alkaline Phosphatase 90 U/L (38-126) 12/05/24 10:04
Most recent labs reviewed.
Micro Results:
12/05/24 13:04 Wound Culture - Final
Foot - Right Staphylococcus lugdunensis
Gram Stain - Final
12/05/24 13:04 Anaerobic Culture - Final
Foot - Right Bacteroides fragilis
12/03/24 13:00 Blood Culture - Final
Blood/Venous No Growth - Final Report
12/03/24 12:30 Blood Culture - Final
Blood/Venous No Growth - Final Report
12/03/24 12:30 Wound Culture - Final
Foot - Right Gram Stain - Final
Wound/abscess/other Cult Final 12/05/24
Few Staphylococcus lugdunensis
Organism 1 Staphylococcus lugdunensis
1. Staphylococcus lugdunensis
M.I.C. RX
--------- ---
Amoxicillin/Potas. Clavulanate <=4/2 R
Ampicillin >8 R
Clindamycin <=0.5 S
Gentamicin <=4 S
Erythromycin <=0.5 S
Levofloxacin <=1 S
Oxacillin >2 R
Tetracycline <=4 S
Trimethoprim/Sulfamethoxazole <=0.5/9.5 S
Vancomycin 1 S
Wound/abscess/other Cult Final 10/22/24
Serratia marcescens from anaerobic culture swab
Organism 1 Serratia marcescens
1. Serratia marcescens
M.I.C. RX
--------- ---
Amoxicillin/Potas. Clavulanate >16/8 R
Ampicillin >16 R
Ampicillin/Sulbactam >16/8 R
Aztreonam <=4 S
Cefazolin >16 R
Cefepime <=2 S
Ceftazidime 4 S
Ceftriaxone <=1 S
Ertapenem <=0.5 S
Ciprofloxacin <=0.25 S
Gentamicin <=2 S
Meropenem <=1 S
Piperacillin/Tazobactam <=8 S
Tetracycline 8 I
Tobramycin <=2 S
Trimethoprim/Sulfamethoxazole <=2/38 S
Imaging:
12/07/2024 MRI right lower extremity: postoperative changes with interval resection of the residual proximal phalanx of the great toe and distal first metatarsal. Signal changes in the area would favor reactive marrow edema/postoperative changes
rather than osteomyelitis. Hyperintense signal is noted in the second metatarsal head as well as proximal phalanx of the second toe. Findings may suggest early osteomyelitis as a possibility, although not definite.
12/03/2024 X-ray right foot: s/p partial amputation of great toe. Base of proximal phalanx remains. No evidence of bony destruction.
Right foot (12/15/2024)
Care Review
Plan reviewed with: Physician (Hospitalist, Podiatry)
--- NOTE | 2024-12-15 11:17 | W.PN.POD ---
Addendum entered and electronically signed by Vivien Heath DPM 12/15/24 11:47:
Obtained consent for the procedure .
Original Note:
Today's Communication
Today's Communication
Podiatry Scheduled for Right foot TMA 12/16/24 around 9:30 Am
Assessment / Plan
-
S/p Rt foot debridement of necrotic tissue and resection of base of the proximal phalanx and 1st met head with partial primary closure 12/05/24
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
Rt partial hallux amputation 10/22/24
Plan ; Patient reevaluated after local wound care with Abx for the past 10 days, and noted to have progressively worse with new necrotic skin changes at the forefoot.
Patient had repeat Angiogram by vascular surgery 12/08/2024, with limb threatening ischemia/ distal small vessel disease. Selective cannulation of right posterior tibial artery with limited balloon angioplasty with 2 mm angioplasty balloon.
D/W Dr. De La Garza , recommended to attempt TMA as an attempt to limb salvage
Discussed with patient about non healing, progressive necrotic changes and new purulence and need for trying further proximal mid foot amputation and attempt to save the limb , Explained TMA procedure, no guarantees given to save the limb or life.
All complications/risks with surgery discussed
Discussed reinfection, necrosis, sepsis, high risk of loosing the limb, He is aware of non healing and possible limb loss
No guarantees given to save his limb or life
Patient scheduled for the Right TMA 12/16/2024 at 9:30AM
Primary service for Surgical clearance
Subjective
Chief Complaint
Non healing Right hallux amputation, now progressive gangrenous changes with drainage.
Subjective
patient seen at side, doing ok, no new complaints, No acute complaints, fever, chills, no SOB or chest pain,
Objective
Temp Pulse Resp BP Pulse Ox
98.5 F 82 16 124/65 98
12/15/24 07:40 12/15/24 08:26 12/15/24 07:40 12/15/24 08:26 12/15/24 07:40
12/15/24 05:31
12/15/24 05:31
Vital Signs and Lab results were reviewed.
Right foot non palpable pedal pulses
Warm to touch,
Rt foot Surgical site with progressive necrotic skin wound edges noted. Superficial necrotic islands over the 2,3 rd digits as well. Presence of some drainage noted, no foul odor, no crepitus felt to Rt foot/limb
No exposed tendons or bone, No more purulence noted, No crepitus felt
--- NOTE | 2024-12-15 11:32 | CM ---
Addendum entered by Amada Nick RN 12/16/24 08:29:
Correction: 12/14-12/20
Original Note:
Plan: [facility]. Auth approved 11/13-11/19; NRD 11/19 fax clinicals to [phone]; Auth # [id number].
Call report to: [phone] - Nurse Munroe
Fax report to: [phone]
Medical necessity and transport forms on chart.
--- NOTE | 2024-12-15 11:57 | WOUNDNOTE ---
WON RN NOTE: Followed up this morning along with Dr. Malave regarding R foot non healing diabetic ulcer. Medial portion of wound with soft eschar that was easily removed upon cleaning, packed with mesalt by Dr. Malave. Santyl dressing applied to
remainder of wound. Was going to update wound care but reviewed Dr. Heath's note from today, TMA scheduled for tomorrow. Will defer to Dr. Hall for updated wound care post OR. L stump vac dressing intact. Updated nurse Kavita on the above.
--- NOTE | 2024-12-15 12:06 | W.PN.HOSP.TC ---
Today's Communication/Plan
-
See A/P
Assessment / Plan
Assessment / Plan
A/P:
#Right foot cellulitis and necrosis
#Patient with DM/PVD s/p
- (10/21/2024)
Balloon angioplasty of right proximal anterior tibial artery severe focal stenosis with 3 mm angioplasty balloon.
Balloon angioplasty of the distal BRADLEY artery with 1.5 mm angioplasty balloon.
-(10/22/2024).
Right partial hallux amputation with primary closure of the Right big toe
-(12/05/2024)
Resection of the base of the proximal phalanx and partial first metatarsal with partial closure:
-(12/08/2024).
Selective cannulation of right posterior tibial artery with limited balloon angioplasty with 2 mm angioplasty balloon:
-MRI foot concerning for osteomyelitis of the second met head and proximal phalanx.
-Seen by podiatry, appreciated
-Non healing, progressive necrotic changes and new purulence. Need for trying further proximal mid foot amputation and attempt to save the limb , Explained TMA procedure, no guarantees given to save the limb or life.
-Continue IV antibiotics, Zosyn and vancomycin
#LINDY:
-Resolved and stable
#Dry eye:
-Eyedrops for few days
#Constipation:
-Improving, Continue bowel regimen
#Hypertension:
Lisinopril 40 Mg p.o. daily
Hydralazine 50 Mg p.o. daily
Hydrochlorothiazide 25 Mg p.o. daily
#Hyperlipidemia:
Continue home statin
#Diabetes mellitus type 2:
Insulin sliding scale
Continue Farxiga and metformin
DVT prophylaxis:
Lovenox SQ
CODE STATUS:
Full code
Anticipated Discharge: > 48 hours
Subjective/Interval History
-
Date of Service: December 15, 2024
Patient seen
History of irregular bowel movement however had 1 yesterday
Pain is bearable
Objective Data
-
Labs:
Laboratory Results
12/15/24 12/15/24
05:31 11:57
WBC 8.7
Hgb 7.9 L
Hct 24.5 L
Plt Count 505 H
PT Pending
INR Pending
Sodium 137
Potassium 3.8
Chloride 104
Carbon Dioxide 25
BUN 20
Creatinine 1.0
Glucose 69 L
Calcium 9.9
Vital Signs:
Vital Signs
Temp Pulse Resp BP Pulse Ox
98.5 F 82 16 124/65 98
12/15/24 07:40 12/15/24 08:26 12/15/24 07:40 12/15/24 08:26 12/15/24 07:40
I&O
12/14/24 12/15/24 12/16/24
06:59 06:59 06:59
Intake Total 2140 / 2140 860 / 860 535 / 535
Output Total 2975 / 2975 740 / 740
Balance -835 / -835 120 / 120 535 / 535
Review of Systems
-
History Source: Patient
Constitutional: Reports No Symptoms
EENT: Reports No Symptoms Reported
Respiratory: Reports No Symptoms
Cardiac: Reports No Symptoms
Abdomen/GI: Reports No Symptoms
Genitourinary: Reports No Symptoms
Musculoskeletal: Reports Other (Foot pain)
Neuro: Reports No Symptoms
Endocrine: Reports No Symptoms
Hematologic / Lymphatic: Reports No Symptoms
Physical Exam
-
General: Well Developed, Well Nourished, No Apparent Distress, Comfortable and Conversant
HEENT: Normocephalic, Atraumatic, Moist Mucous Membranes and Anicteric
Respiratory: Clear to Auscultation
Cardiac: Regular Rhythm and S1/S2
GI: Soft, Nontender, Nondistended and No Hepatosplenomegaly
Musculoskeletal: No Clubbing, No Cyanosis, No Edema and Other (Left leg AKA wound dressing. Right leg wound dressing exposed necrotic tissue seen and slough)
Neuro: Awake, AO x 3 and Nonfocal/Grossly Intact
Psych: Calm
[2024-12-15 12:37] LABS: Glucose - Point of Care 94 mg/dl (70-99)
[2024-12-15 12:43] LABS: INR 1.14; PT 15.1 Sec (11.4-14.6)
--- NOTE | 2024-12-15 13:16 | WOUNDNOTE ---
RAFFAELE RN NOTE: Confirmed with MONO Vega next vac change for L stump can be done on Friday.
[2024-12-15 15:06] VITALS: BP 123/69
[2024-12-15 16:07] LABS: Glucose - Point of Care 77 mg/dl (70-99)
[2024-12-15] MEDS: DILAUDID 0.5 MG IV ×2 (17:06→23:41)
--- NOTE | 2024-12-15 17:23 | W.PN.UPDATE ---
Update Note
Progress Note Update
The pt is medically optimized for orthopedic surgery tomorrow (TMA) without further preop testing as the benefits>>risks
[2024-12-15 18:48] LABS: Glucose - Point of Care 155 mg/dl (70-99)
[2024-12-15 21:32] LABS: Glucose - Point of Care 138 mg/dl (70-99)
[2024-12-15 23:07] VITALS: BP 134/70
[2024-12-16] VITALS (18 sets, daily range): BP systolic 94–144; BP diastolic 43–73
[2024-12-16] MEDS: ZOSYN 50 IV ×3 (04:20→21:03)
[2024-12-16] MEDS: TYLENOL 1000 MG PO ×2 (04:22→18:24)
[2024-12-16] MEDS: VANCOCIN 535 MG IV (05:03)
[2024-12-16 06:17] LABS: Hematocrit 24.0 % (39.0-52.0); Hemoglobin 7.7 g/dL (13.0-18.0); Mean Corp Hgb Conc. 32.1 g/dL (33.0-37.0); Mean Corpuscular Volume 88.9 fL (80.0-94.0); Platelet Count 505 10^3/uL (130-400); Red Cell Dist. Width 14.3 % (11.5-14.5)
[2024-12-16 06:47] LABS: Blood Urea Nitrogen 19 mg/dl (9-20); Calcium 9.4 mg/dl (8.4-10.2); Carbon Dioxide 25 mmol/L (22-30); Chloride 103 mmol/L (98-107); Estimated Creatinine Clearance 99 ml/min; Glucose 82 mg/dl (70-99); Potassium 3.9 mmol/L (3.5-5.1); Sodium 135 mmol/L (135-145); eGFR > 60.00
--- NOTE | 2024-12-16 08:08 | W.PN.UPDATE ---
Update Note
Progress Note Update
I saw and evaluated the patient. I reviewed the resident�s note and agree with findings and plan as documented in the resident�s note.
No new complaints.
Gen: NAD, AAOx3.
Eyes: EOMI, PERRLA, no scleral icterus.
Neck: supple.
CV: continues to remain RRR, +S1/S2, no m/r/g.
Resp: continues to remain CTAB, no rales, wheezes, or rhonchi.
Abd: remains +BS, soft, NT, ND
Skin: No rashes.
Neuro: CN 2-12 intact, non-focal.
Psych: Normal mood and affect.
12/05/24 13:04 Foot - Right Wound Culture - Final
Staphylococcus lugdunensis
12/05/24 13:04 Foot - Right Gram Stain - Final
12/05/24 13:04 Foot - Right Anaerobic Culture - Final
Bacteroides fragilis
12/03/24 13:00 Blood/Venous Blood Culture - Final
No Growth - Final Report
12/03/24 12:30 Blood/Venous Blood Culture - Final
No Growth - Final Report
12/03/24 12:30 Foot - Right Wound Culture - Final
12/03/24 12:30 Foot - Right Gram Stain - Final
Right foot cellulitis and necrosis in the setting of PVD, diabetes mellitus, and resection of the base of the proximal phalanx and partial first metatarsal with partial closure:
-MRI foot concerning for osteomyelitis of the second met head and proximal phalanx.
-Podiatry did debridement on 12/05 and cultures taken and growing Staph Lugdumensis and Bacteroides fragilis. Podiatry recommended continue wound care and can weight-bear on right foot with DH pressure-relief shoe. It is possible he might need TMA
or furthermore BKA if wound does not heal as expected therefore will need very close follow-up with podiatry and vascular.
-Vascular did left stump site debridement with wound VAC placement and right lower extremity arteriogram with [facility] [facility] PT on 12/08
-pain control
-cont Zosyn/Vanco
-for R TMA Today
Other problems:
Obesity due to excess calories
LINDY, resolved
Constipation: cont bowel regimen
Essential HTN: cont Norvasc/Clonidine/Hydralazine/HCTZ/ACEi
HLD: cont statin
DM2: cont Farxiga/metformin/SSI
FULL/Lovenox
[2024-12-16 08:32] LABS: Glucose - Point of Care 94 mg/dl (70-99)
[2024-12-16] MEDS: NOVOLOG FLEXPEN-LOW RESISTANCE SC ×2 (08:32→11:41)
[2024-12-16] MEDS: NORVASC 10 MG PO (08:35)
[2024-12-16] MEDS: APRESOLINE 50 MG PO (08:35)
[2024-12-16] MEDS: ORETIC 25 MG PO (08:35)
[2024-12-16] MEDS: CRESTOR 20 MG PO (08:35)
[2024-12-16] MEDS: SENOKOT 8.6 MG PO ×2 (08:35→19:51)
[2024-12-16] MEDS: LOW STRENGTH ASPIRIN 81 MG PO (08:35)
[2024-12-16] MEDS: ZESTRIL 40 MG PO (08:35)
[2024-12-16] MEDS: DUPHALAC/CHRONULAC 20 GRAMS PO (08:36)
[2024-12-16] MEDS: CATAPRES 0.1 MG PO (08:36)
[2024-12-16] MEDS: FARXIGA PO (08:36)
[2024-12-16] MEDS: MIRALAX 17 GRAMS PO (08:37)
--- NOTE | 2024-12-16 09:05 | PHA.VAN.FU ---
Vancomycin Assessment / Plan
- Assessment
Renal Function: Stable
WBC's are: WNL
In the past 24 hrs, patient has been: Afebrile
Concomitant Antimicrobials: piperacillin/tazobactam
- Dosing Plan
Continue: Vanc 1750mg Q24H
- Monitoring Plan
No level(s) ordered at this time: consider levels in next few days
- Follow Up
Pharmacy will continue to follow.
Vancomycin Follow UP
- -
Patient Age: 59
Patient Sex: Male
Vancomycin Day #: 14
Indication: Skin And Soft Tissue
Requesting Provider: Dr. Owens (resident) / Ananda
Pertinent Antimicrobial Allergies:
NKDA
Height / Weight:
Height 5 ft 11 in
Actual Weight 103.51 kg
Pertinent Past Medical History: T2DM, PAD, BMI ~32
- Vital Signs / Lab Results
Temp Pulse Resp BP Pulse Ox
98.5 F 78 16 134/72 97
12/16/24 07:35 12/16/24 07:35 12/16/24 07:35 12/16/24 07:35 12/16/24 07:35
Lab Results - Hematology
12/14/24 12/15/24 12/16/24
05:24 05:31 04:58
WBC 9.9 8.7 8.3
Lab Results - Chemistry
12/14/24 12/15/24 12/16/24
05:24 05:31 04:58
BUN 15 20 19
Creatinine 1.0 1.0 1.0
Estimated Creat Clear 99 99 99
Therapeutic Drug Monitoring
Vancomycin Peak 27.0 ug/ml (18-26) H 12/13/24 21:02
Vancomycin Trough 19.7 ug/ml (5-20) 12/14/24 05:24
Random Vancomycin 10.3 ug/ml 12/12/24 06:27
--- NOTE | 2024-12-16 09:25 | W.PN.HOSP.TC ---
Today's Communication/Plan
-
For surgery today
Assessment / Plan
Assessment / Plan
A/P:
#Right foot cellulitis and necrosis
#Patient with DM/PVD s/p
- (10/21/2024)
Balloon angioplasty of right proximal anterior tibial artery severe focal stenosis with 3 mm angioplasty balloon.
Balloon angioplasty of the distal BRADLEY artery with 1.5 mm angioplasty balloon.
-(10/22/2024).
Right partial hallux amputation with primary closure of the Right big toe
-(12/05/2024)
Resection of the base of the proximal phalanx and partial first metatarsal with partial closure:
-(12/08/2024).
Selective cannulation of right posterior tibial artery with limited balloon angioplasty with 2 mm angioplasty balloon:
-MRI foot concerning for osteomyelitis of the second met head and proximal phalanx.
-Seen by podiatry, appreciated
-Non healing, progressive necrotic changes and new purulence and need for trying further proximal mid foot amputation and attempt to save the limb.
However, no guarantees given to save the limb or life.
Plannned for TMA as an attempt to limb salvage today
-Continue IV antibiotics, Zosyn and vancomycin.
#LINDY:
-Resolved and stable
#Dry eye:
-Eyedrops for few days
#Constipation:
-Improving, Continue bowel regimen
#Hypertension:
Lisinopril 40 Mg p.o. daily
Hydralazine 50 Mg p.o. daily
Hydrochlorothiazide 25 Mg p.o. daily
#Hyperlipidemia:
Continue home statin
#Diabetes mellitus type 2:
Insulin sliding scale
Continue Farxiga and metformin
#Anemia
-Hb downtrending now 7.7
-Monitor
DVT prophylaxis:
Lovenox SQ
CODE STATUS:
Full code
Anticipated Discharge: > 48 hours
Subjective/Interval History
-
Date of Service: December 16, 2024
Patient seen
No new complains
Had bowel movement yesterday
Objective Data
-
Labs:
Laboratory Results
12/16/24
04:58
WBC 8.3
Hgb 7.7 L
Hct 24.0 L
Plt Count 505 H
Sodium 135
Potassium 3.9
Chloride 103
Carbon Dioxide 25
BUN 19
Creatinine 1.0
Glucose 82
Calcium 9.4
Vital Signs:
Vital Signs
Temp Pulse Resp BP Pulse Ox
98.5 F 78 16 134/72 97
12/16/24 07:35 12/16/24 07:35 12/16/24 07:35 12/16/24 07:35 12/16/24 07:35
I&O
12/15/24 12/16/24 12/17/24
06:59 06:59 06:59
Intake Total 860 / 860 1215 / 1215
Output Total 740 / 740 2100 / 2100
Balance 120 / 120 -885 / -885
Review of Systems
-
History Source: Patient
Constitutional: Reports No Symptoms
EENT: Reports No Symptoms Reported
Respiratory: Reports No Symptoms
Cardiac: Reports No Symptoms
Abdomen/GI: Reports No Symptoms
Genitourinary: Reports No Symptoms
Musculoskeletal: Reports Other (Foot pain)
Neuro: Reports No Symptoms
Endocrine: Reports No Symptoms
Hematologic / Lymphatic: Reports No Symptoms
Physical Exam
-
General: Well Developed, Well Nourished, No Apparent Distress, Comfortable and Conversant
HEENT: Normocephalic, Atraumatic, Moist Mucous Membranes and Anicteric
Respiratory: Clear to Auscultation
Cardiac: Regular Rhythm and S1/S2
GI: Soft, Nontender, Nondistended and No Hepatosplenomegaly
Musculoskeletal: No Clubbing, No Cyanosis, No Edema and Other (Left leg AKA wound dressing clean and dry. Right leg in wound dressing, 1+ Pedal edema to upper 2/3rd)
Neuro: Awake, AO x 3 and Nonfocal/Grossly Intact
Psych: Calm
[2024-12-16] MEDS: SANTYL OINTMENT TOPICAL (09:42)
[2024-12-16] MEDS: TYLENOL PO (09:49)
[2024-12-16] MEDS: ZOSYN IV (11:07)
[2024-12-16] MEDS: SUBLIMAZE 50 MCG IV ×2 (12:43→13:04)
[2024-12-16 12:48] LABS: Glucose - Point of Care 110 mg/dl (70-99)
--- NOTE | 2024-12-16 12:50 | W.SUR.POST ---
Surgical Immediate Post Op
Note
Pre Op Diagnosis: Right Foot gangrene
Post Op Diagnosis: Same as above
Procedure Performed: Right Transmetatarsal amputation with primary closure
Primary Surgeon: Dr. Heath
Secondary Surgeons: None
Anesthesia: LMA with Right ankle block
Estimated Blood Loss: 30cc's
Fluids:None
Drains/Shunts: None
Specimens/Cultures: Aerobic and anaerobic cultures sent, Right forefoot
Doppler/Duplex/Angio (Y/N): No
Complications: None
Operative Findings: healthy Deep tissue blood flow noted form surgical flaps,
patient stable in PACU with intact vascular status to Right foot and stable vital signs
--- NOTE | 2024-12-16 14:39 | PTCARENOTE ---
Patient back from PACU post op Right TMA. Vs documented. Pt drowsy, but arousable. call walker within reach. family at bedside. plan of care on going.
[2024-12-16] MEDS: DILAUDID 0.5 MG IV ×2 (14:51→21:01)
--- NOTE | 2024-12-16 15:02 | CM ---
Reviewed the chart notes. Patient to OR today for Right Transmetatarsal amputation with primary closure.
Plan: [facility]. Auth approved 11/13-11/19; NRD 11/19 fax clinicals to [phone]; Auth # [id number].
Call report to: [phone] - Nurse Shaneka
Fax report to: [phone]
Medical necessity and transport forms on chart.
[2024-12-16 16:08] LABS: Glucose - Point of Care 171 mg/dl (70-99)
[2024-12-16] MEDS: NOVOLOG FLEXPEN-LOW RESISTANCE 1 UNITS SC (16:08)
[2024-12-16] MEDS: LOVENOX 40 MG SC (18:24)
[2024-12-16] MEDS: ROXICODONE 5 MG PO (18:27)
[2024-12-16 20:58] LABS: Glucose - Point of Care 216 mg/dl (70-99)
[2024-12-17] MEDS: DILAUDID 1 MG IV ×6 (01:08→23:44)
[2024-12-17] MEDS: TYLENOL PO (01:16)
[2024-12-17] MEDS: ROXICODONE 5 MG PO (03:20)
[2024-12-17] MEDS: ZOSYN 50 IV ×4 (03:20→22:18)
[2024-12-17] MEDS: VANCOCIN 535 MG IV (05:16)
[2024-12-17 06:20] LABS: Hematocrit 21.7 % (39.0-52.0); Hemoglobin 7.2 g/dL (13.0-18.0); Mean Corp Hgb Conc. 33.2 g/dL (33.0-37.0); Mean Corpuscular Volume 88.9 fL (80.0-94.0); Platelet Count 445 10^3/uL (130-400); Red Cell Dist. Width 14.3 % (11.5-14.5)
[2024-12-17 06:54] LABS: ALT (SGPT) 21 U/L (0-50); AST (SGOT) 15 U/L (17-59); Albumin 3.2 g/dl (3.5-5.0); Alkaline Phosphatase 91 U/L (38-126); Blood Urea Nitrogen 18 mg/dl (9-20); Calcium 8.8 mg/dl (8.4-10.2); Carbon Dioxide 23 mmol/L (22-30); Chloride 105 mmol/L (98-107); Estimated Creatinine Clearance 99 ml/min; Glucose 133 mg/dl (70-99); Potassium 4.1 mmol/L (3.5-5.1); Sodium 135 mmol/L (135-145); Total Protein 5.9 g/dl (6.3-8.2); eGFR > 60.00
[2024-12-17 07:45] VITALS: BP 128/74
[2024-12-17 08:03] LABS: Glucose - Point of Care 132 mg/dl (70-99)
--- NOTE | 2024-12-17 09:18 | W.PN.UPDATE ---
Update Note
Progress Note Update
I saw and evaluated the patient. I reviewed the resident�s note and agree with findings and plan as documented in the resident�s note.
No new complaints.
Gen: NAD, AAOx3.
Eyes: EOMI, PERRLA, no scleral icterus.
Neck: supple.
CV: continues to remain RRR, +S1/S2, no m/r/g.
Resp: continues to remain CTAB, no rales, wheezes, or rhonchi.
Abd: remains +BS, soft, NT, ND
Skin: No rashes.
Neuro: CN 2-12 intact, non-focal.
Psych: Normal mood and affect.
12/16/24 11:19 Foot - Right Gram Stain - Preliminary
12/05/24 13:04 Foot - Right Wound Culture - Final
Staphylococcus lugdunensis
12/05/24 13:04 Foot - Right Gram Stain - Final
12/05/24 13:04 Foot - Right Anaerobic Culture - Final
Bacteroides fragilis
12/03/24 13:00 Blood/Venous Blood Culture - Final
No Growth - Final Report
12/03/24 12:30 Blood/Venous Blood Culture - Final
No Growth - Final Report
12/03/24 12:30 Foot - Right Wound Culture - Final
12/03/24 12:30 Foot - Right Gram Stain - Final
Right foot cellulitis and necrosis in the setting of PVD, diabetes mellitus, and resection of the base of the proximal phalanx and partial first metatarsal with partial closure:
-MRI foot concerning for osteomyelitis of the second met head and proximal phalanx.
-Podiatry did debridement on 12/05 and cultures taken and growing Staph Lugdumensis and Bacteroides fragilis. Podiatry recommended continue wound care and can weight-bear on right foot with DH pressure-relief shoe. It is possible he might need TMA
or furthermore BKA if wound does not heal as expected therefore will need very close follow-up with podiatry and vascular.
-Vascular did left stump site debridement with wound VAC placement and right lower extremity arteriogram with [employer] PT on 12/08
-pain control
-cont Zosyn/Vanco
-s/p R TMA with primary closure 12/16
-follow path and intraop cultures
Other problems:
Obesity due to excess calories
LINDY, resolved
Constipation: cont bowel regimen
Essential HTN: cont Norvasc/Clonidine/Hydralazine/HCTZ/ACEi
HLD: cont statin
DM2: cont Farxiga/metformin/SSI
FULL/Lovenox
[2024-12-17] MEDS: NOVOLOG FLEXPEN-LOW RESISTANCE SC ×3 (09:22→17:24)
[2024-12-17] MEDS: DUPHALAC/CHRONULAC 20 GRAMS PO (09:44)
[2024-12-17] MEDS: CATAPRES 0.1 MG PO (09:45)
[2024-12-17] MEDS: TYLENOL 1000 MG PO ×2 (09:45→17:46)
[2024-12-17] MEDS: ZESTRIL 40 MG PO (09:46)
[2024-12-17] MEDS: ORETIC 25 MG PO (09:46)
[2024-12-17] MEDS: SANTYL OINTMENT 1 APPLIC TOPICAL (09:46)
[2024-12-17] MEDS: SENOKOT 8.6 MG PO (09:47)
[2024-12-17] MEDS: CRESTOR 20 MG PO (09:47)
[2024-12-17] MEDS: APRESOLINE 50 MG PO (09:49)
[2024-12-17] MEDS: NORVASC 10 MG PO (09:49)
[2024-12-17] MEDS: LOW STRENGTH ASPIRIN 81 MG PO (09:49)
[2024-12-17] MEDS: MIRALAX 17 GRAMS PO (09:50)
[2024-12-17] MEDS: FARXIGA 10 MG PO (09:50)
--- NOTE | 2024-12-17 09:55 | W.PN.HOSP.TC ---
Today's Communication/Plan
-
For blood transfusion today
Assessment / Plan
Assessment / Plan
A/P:
#Right foot cellulitis and necrosis
#Patient with DM/PVD s/p
- (10/21/2024)
Balloon angioplasty of right proximal anterior tibial artery severe focal stenosis with 3 mm angioplasty balloon.
Balloon angioplasty of the distal BRADLEY artery with 1.5 mm angioplasty balloon.
-(10/22/2024).
Right partial hallux amputation with primary closure of the Right big toe
-(12/05/2024)
Resection of the base of the proximal phalanx and partial first metatarsal with partial closure:
-(12/08/2024).
Selective cannulation of right posterior tibial artery with limited balloon angioplasty with 2 mm angioplasty balloon:
-(12/17/2024)
Right Transmetatarsal amputation with primary closure done yesterday POD #1
- Follow Path and intraop cultures
- Non weight bearing
-Continue IV antibiotics, Zosyn and vancomycin.
#Anemia
-Hb dropped further, 7.2/ 21.7 post op
Transfuse 1 unit of blood, post transfusion H/H
#Diabetes mellitus type 2
Insulin sliding scale
Continue Farxiga
#LINDY:
-Resolved and stable
#Dry eye:
-Eyedrops for few days
#Constipation:
-Improving, Continue bowel regimen
#Hypertension:
Lisinopril 40 Mg p.o. daily
Hydralazine 50 Mg p.o. daily
Hydrochlorothiazide 25 Mg p.o. daily
#Hyperlipidemia:
Continue home statin
#Anemia
-Hb dropped post op, 7.2/ 21.7 post op
-Transfuse 1 unit of blood, post transfusion H/H
DVT prophylaxis:
Lovenox SQ
CODE STATUS:
Full code
Anticipated Discharge: > 48 hours
Subjective/Interval History
-
Date of Service: December 17, 2024
C/O Pain
Objective Data
-
Labs:
Laboratory Results
12/17/24 12/17/24
06:01 12:00
WBC 10.9 H
Hgb 7.2 L Pending
Hct 21.7 L Pending
Plt Count 445 H
Sodium 135
Potassium 4.1
Chloride 105
Carbon Dioxide 23
BUN 18
Creatinine 1.0
Glucose 133 H
Calcium 8.8
Total Bilirubin 0.2
AST 15 L
ALT 21
Alkaline Phosphatase 91
Vital Signs:
Vital Signs
Temp Pulse Resp BP Pulse Ox
98.0 F 81 16 128/74 95
12/17/24 07:45 12/17/24 07:45 12/17/24 07:45 12/17/24 07:45 12/17/24 07:45
I&O
12/16/24 12/17/24 12/18/24
06:59 06:59 06:59
Intake Total 1215 / 1215 1175 / 1175
Output Total 2099 / 2099 1550 / 1550
Balance -885 / -885 -375 / -375
Review of Systems
-
History Source: Patient
Constitutional: Reports No Symptoms
EENT: Reports No Symptoms Reported
Respiratory: Reports No Symptoms
Cardiac: Reports No Symptoms
Abdomen/GI: Reports No Symptoms
Genitourinary: Reports No Symptoms
Neuro: Reports No Symptoms
Endocrine: Reports No Symptoms
Hematologic / Lymphatic: Reports No Symptoms
Physical Exam
-
General: Well Developed, Well Nourished, No Apparent Distress, Comfortable and Conversant
HEENT: Normocephalic, Atraumatic and Moist Mucous Membranes
Respiratory: Clear to Auscultation
Cardiac: Regular Rhythm and S1/S2
GI: Soft, Nontender, Nondistended and No Hepatosplenomegaly
Musculoskeletal: No Clubbing, No Cyanosis, No Edema and Other (Left leg AKA wound exposed wound VAC drainage present. Healing satisfactorily. Right leg in wound dressing, clean and dry trace pedal edema, nontender peripheral pulses present )
Neuro: Awake, AO x 3 and Nonfocal/Grossly Intact
Psych: Calm
--- NOTE | 2024-12-17 10:49 | W.PN.ID1 ---
Date of Service
Date of Service: December 17, 2024
Today's Communication
Continue antibiotics.
Assessment / Plan
Left foot wound with dermal gangrene s/p debridement
Hx recent right hallux amputation
Leukocytosis
Limb threatening ischemia; s/p angiography (12/08/2024)
DM type II (uncontrolled; HbA1c = 7.7)
HTN
Anemia
HLD
Recommendations:
Prior wound cultures with Serratia marcescens. Current wound cultures with Staphylococcus lugdunensis and Bacteroides fragilis
Prior MRI findings reviewed, and are concerning for osteomyelitis of the second met head and proximal phalanx given that the wound is overlying the concerned areas.
Continue with Zosyn 3.375 gm IV q.6 hours
Continue vancomycin. Follow Vanco levels closely to prevent nephrotoxicity.
Follow intraoperative cultures. Given removal of prior area of osteomyelitis. A long course of antibiotics may not be necessary.
Given underlying profound vascular disease, patient remains extremely high risk for limb loss.
����������������������������������������������������������
Chief Complaint
-: Other (Right foot infection)
Subjective / Review of Systems
Patient seen and examined. Underwent right TMA yesterday. Currently no complaints.
Vital Signs / Physical Exam
Vital Signs
Vital Signs
Temp Pulse Resp BP Pulse Ox
98.0 F 81 16 128/74 95
12/17/24 07:45 12/17/24 09:49 12/17/24 07:45 12/17/24 09:49 12/17/24 07:45
Physical Exam
Constitutional: No Acute Distress and Comfortable
Pulmonary: Non Labored
Gastrointestinal: Non Distended
Extremities: Other (Right foot s/p TMA. Dressed. No strikethrough.)
Musculoskeletal: Other (Left BKA with VAC. Stump dressed in Eulogio wrap)
Neurological: Awake and Alert
Psychological: Calm
Objective Data
Lab Data
Lab Results
12/17/24 06:01
PT 15.1 Sec (11.4-14.6) H 12/15/24 12:10
INR 1.14 12/15/24 12:10
Estimated Creat Clear 99 ml/min 12/17/24 06:01
Lactic Acid 1.1 mmol/L (0.7-2.0) 12/03/24 12:56
Total Bilirubin 0.2 mg/dl (0.2-1.3) 12/17/24 06:01
AST 15 U/L (17-59) L 12/17/24 06:01
ALT 21 U/L (0-50) 12/17/24 06:01
Alkaline Phosphatase 91 U/L (38-126) 12/17/24 06:01
Most recent labs reviewed.
Micro Results:
12/16/24 11:19 Anaerobic Culture - Preliminary
Foot - Right Culture pending. Anaerobic cultures are examined after 3
days incubation. Additional information to follow.
12/16/24 11:19 Wound Culture - Preliminary
Foot - Right Gram Stain - Preliminary
12/05/24 13:04 Wound Culture - Final
Foot - Right Staphylococcus lugdunensis
Gram Stain - Final
12/05/24 13:04 Anaerobic Culture - Final
Foot - Right Bacteroides fragilis
12/03/24 13:00 Blood Culture - Final
Blood/Venous No Growth - Final Report
12/03/24 12:30 Blood Culture - Final
Blood/Venous No Growth - Final Report
12/03/24 12:30 Wound Culture - Final
Foot - Right Gram Stain - Final
Wound/abscess/other Cult Final 12/05/24
Few Staphylococcus lugdunensis
Organism 1 Staphylococcus lugdunensis
1. Staphylococcus lugdunensis
M.I.C. RX
--------- ---
Amoxicillin/Potas. Clavulanate <=4/2 R
Ampicillin >8 R
Clindamycin <=0.5 S
Gentamicin <=4 S
Erythromycin <=0.5 S
Levofloxacin <=1 S
Oxacillin >2 R
Tetracycline <=4 S
Trimethoprim/Sulfamethoxazole <=0.5/9.5 S
Vancomycin 1 S
Wound/abscess/other Cult Final 10/22/24
Serratia marcescens from anaerobic culture swab
Organism 1 Serratia marcescens
1. Serratia marcescens
M.I.C. RX
--------- ---
Amoxicillin/Potas. Clavulanate >16/8 R
Ampicillin >16 R
Ampicillin/Sulbactam >16/8 R
Aztreonam <=4 S
Cefazolin >16 R
Cefepime <=2 S
Ceftazidime 4 S
Ceftriaxone <=1 S
Ertapenem <=0.5 S
Ciprofloxacin <=0.25 S
Gentamicin <=2 S
Meropenem <=1 S
Piperacillin/Tazobactam <=8 S
Tetracycline 8 I
Tobramycin <=2 S
Trimethoprim/Sulfamethoxazole <=2/38 S
Imaging:
12/07/2024 MRI right lower extremity: postoperative changes with interval resection of the residual proximal phalanx of the great toe and distal first metatarsal. Signal changes in the area would favor reactive marrow edema/postoperative changes
rather than osteomyelitis. Hyperintense signal is noted in the second metatarsal head as well as proximal phalanx of the second toe. Findings may suggest early osteomyelitis as a possibility, although not definite.
12/03/2024 X-ray right foot: s/p partial amputation of great toe. Base of proximal phalanx remains. No evidence of bony destruction.
--- NOTE | 2024-12-17 10:51 | WOUNDNOTE ---
WOC RN NOTE: Patient visited for vac change to left stump. Please see work list for measurements and details. Periwound skin intact, granulation noted in wound bed and patient tolerating vac well. Dressing changed with back foam as ordered. Will
continue to follow up with vac change as ordered on 12/20.
--- NOTE | 2024-12-17 11:07 | CM ---
Reviewed the chart notes. Original plan was to [facility] for rehab. Auth had been obtained. Patient will need to be evaluated by PT. New PT orders will need to be placed since patient had surgery yesterday. CM continues to be available to
patient/family and is monitoring medical plan for needs at discharge.
Plan: Discharge to SNF/rehab once medically stable, bed secured, and auth obtained.
--- NOTE | 2024-12-17 11:26 | PHA.VAN.FU ---
Vancomycin Assessment / Plan
- Assessment
Renal Function: Stable
WBC's are: Trending Up
In the past 24 hrs, patient has been: Afebrile
Concomitant Antimicrobials: piperacillin/tazobactam
- Dosing Plan
Continue: Vanc 1750mg Q24H
- Monitoring Plan
Peak Level: peak = 27.2 - will assess with trough in AM
Trough Level: 12/18 0530
- Follow Up
Pharmacy will continue to follow.
Vancomycin Follow UP
- -
Patient Age: 59
Patient Sex: Male
Vancomycin Day #: 15
Indication: Skin And Soft Tissue
Requesting Provider: Dr. Owens (resident) / Ananda
Pertinent Antimicrobial Allergies:
NKDA
Height / Weight:
Height 5 ft 11 in
Actual Weight 103.51 kg
Pertinent Past Medical History: T2DM, PAD, BMI ~32
- Vital Signs / Lab Results
Temp Pulse Resp BP Pulse Ox
98.0 F 81 16 128/74 95
12/17/24 07:45 12/17/24 09:49 12/17/24 07:45 12/17/24 09:49 12/17/24 07:45
Lab Results - Hematology
12/15/24 12/16/24 12/17/24
05:31 04:58 06:01
WBC 8.7 8.3 10.9 H
Lab Results - Chemistry
12/15/24 12/16/24 12/17/24
05:31 04:58 06:01
BUN 20 19 18
Creatinine 1.0 1.0 1.0
Estimated Creat Clear 99 99 99
Albumin 3.2 L
Microbiology Results
12/16/24 11:19 Anaerobic Culture - Preliminary
Foot - Right Culture pending. Anaerobic cultures are examined after 3
days incubation. Additional information to follow.
12/16/24 11:19 Wound Culture - Preliminary
Foot - Right Gram Stain - Preliminary
Therapeutic Drug Monitoring
Vancomycin Peak 27.2 ug/ml (18-26) H 12/17/24 10:00
Vancomycin Trough 19.7 ug/ml (5-20) 12/14/24 05:24
Random Vancomycin 10.3 ug/ml 12/12/24 06:27
--- NOTE | 2024-12-17 12:53 | WOUNDNOTE ---
LEFT STUMP WOUND
--- NOTE | 2024-12-17 12:53 | WOUNDNOTE ---
LEFT STUMP WOUND
--- NOTE | 2024-12-17 12:59 | W.PN.POD ---
Today's Communication
Today's Communication
Podiatry will follow.
Assessment / Plan
-
S/P Right foot Transmetatarsal amputation POD #1
S/p Rt foot debridement of necrotic tissue and resection of base of the proximal phalanx and 1st met head with partial primary closure 12/05/24
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
Rt partial hallux amputation 10/22/24
Plan ; Changed surgical dressings, repacked the wound, adaptic, dry gauze and kerlix applied
NWB to Rt foot
Cont abx per ID
Pending wound cultures.
Subjective
Chief Complaint
Right foot gangrene
Subjective
Patient seen at bedside, doing well, No strike through bleeding in surgical dressings from Rt foot. No fever, chills.
His Post op pain in his Rt foot well controlled with pain medication , slept fine
Objective
Temp Pulse Resp BP Pulse Ox
98.0 F 81 16 128/74 95
12/17/24 07:45 12/17/24 09:49 12/17/24 07:45 12/17/24 09:49 12/17/24 07:45
12/17/24 06:01
Vital Signs and Lab results were reviewed.
Rt foot audible AT pulse with doppler.
Rt foot both skin flaps are warm to touch, pink, well perfused
Rt foot no edema, no new necrosis.
Right foot TMA site clean, no active bleeding, intact sutures, no local hematoma, no tenderness, no new discoloration, intact sutures,
Surgical flaps edges are pink, healthy
[2024-12-17 14:01] LABS: Glucose - Point of Care 134 mg/dl (70-99)
--- NOTE | 2024-12-17 14:58 | PN.CDI ---
CDI
- -
CDI:
Physician Documentation Request
Admit Date: 12/03/24 17:01
Dear Doctor Jessica,
Patient admitted with right foot gangrene s/p right foot transmetatarsal amputation with primary closure.
12/16 PN, 'Anemia-...Hb downtrending ....now 7.7-Monitor.'
12/03 Hgb 9.1
12/17 Hgb 7.0
Based on the above, please clarify in your progress note, which of the following is the most likely type of anemia you are evaluating, monitoring and/or treating?
Acute blood loss anemia on chronic anemia
Acute blood loss anemia only
Other
Use of terms such as suspected, likely, concern for, or probable (associated with a specific diagnosis that is being evaluated, monitored, or treated as if it exists) are acceptable and can be coded in the inpatient setting, when documented at the
time of discharge.
Thank you,
Denia LOPEZ,RN,CCDS
CDI Specialist
Available via [employer] text
Please use your independent medical judgment in providing your response.
[2024-12-17 15:04] VITALS: BP 132/70
[2024-12-17 15:12] LABS: Hematocrit 22.1 % (39.0-52.0); Hemoglobin 7.0 g/dL (13.0-18.0)
[2024-12-17 15:25] VITALS: BP 128/69
[2024-12-17 17:21] LABS: Glucose - Point of Care 111 mg/dl (70-99)
[2024-12-17 17:37] VITALS: BP 137/83
[2024-12-17] MEDS: LOVENOX 40 MG SC (17:45)
[2024-12-17] MEDS: DULCOLAX 10 MG RECTAL (17:48)
[2024-12-17 19:08] LABS: Hematocrit 25.2 % (39.0-52.0); Hemoglobin 8.2 g/dL (13.0-18.0)
[2024-12-17] MEDS: SENOKOT PO (20:17)
[2024-12-17] MEDS: FLUSH (NSS) 2 FLUSH IV ×3 (20:40→23:45)
[2024-12-17 21:19] LABS: Glucose - Point of Care 117 mg/dl (70-99)
[2024-12-17 23:08] VITALS: BP 130/71
[2024-12-18] MEDS: TYLENOL 1000 MG PO ×3 (03:11→17:31)
[2024-12-18] MEDS: ZOSYN 50 IV ×4 (03:12→21:09)
[2024-12-18] MEDS: FLUSH (NSS) 2 FLUSH IV ×2 (03:12→05:29)
[2024-12-18] MEDS: DILAUDID 1 MG IV ×5 (03:15→21:08)
[2024-12-18 04:50] LABS: Hematocrit 23.9 % (39.0-52.0); Hemoglobin 8.1 g/dL (13.0-18.0); Mean Corp Hgb Conc. 33.9 g/dL (33.0-37.0); Mean Corpuscular Volume 87.2 fL (80.0-94.0); Platelet Count 436 10^3/uL (130-400); Red Cell Dist. Width 14.8 % (11.5-14.5)
[2024-12-18 05:16] LABS: Blood Urea Nitrogen 17 mg/dl (9-20); Calcium 9.4 mg/dl (8.4-10.2); Carbon Dioxide 24 mmol/L (22-30); Chloride 104 mmol/L (98-107); Estimated Creatinine Clearance 110 ml/min; Glucose 67 mg/dl (70-99); Potassium 4.2 mmol/L (3.5-5.1); Sodium 135 mmol/L (135-145); eGFR > 60.00
[2024-12-18] MEDS: VANCOCIN 535 MG IV (05:27)
--- NOTE | 2024-12-18 07:47 | PHA.VAN.FU ---
Vancomycin Assessment / Plan
- Assessment
Renal Function: Stable
WBC's are: Trending Up
In the past 24 hrs, patient has been: Afebrile
Concomitant Antimicrobials: zosyn
- Assessment - Therapeutic Drug Monitoring
Extrapolated Cmax (mcg/mL): 29.9
Peak level was drawn: Appropriately
Extrapolated Cmin (mcg/mL): 14.0
Trough Drawn: Appropriately
Levels were drawn: At steady state
Calculated AUC (mcg*h/mL): 505
Calculated ke: 0.0343
Calculated half life (H): 20.2
Calculated Vd (L): 100.89
Calculated Vanc CL (ml/min): 57.7
- Dosing Plan
Continue: 1750mg q24h
- Monitoring Plan
Level(s) appropriate: Recheck trough at minimum of weekly intervals, Repeat sooner for changes in renal function or clinical status
- Follow Up
Pharmacy will continue to follow.
Vancomycin Follow UP
- -
Patient Age: 59
Patient Sex: Male
Vancomycin Day #: 16
Indication: Skin And Soft Tissue
Requesting Provider: Dr. Owens (resident) / Ananda
Pertinent Antimicrobial Allergies:
NKDA
Height / Weight:
Height 5 ft 11 in
Actual Weight 103.51 kg
Pertinent Past Medical History: T2DM, PAD, BMI ~32
- Vital Signs / Lab Results
Temp Pulse Resp BP Pulse Ox
98.2 F 89 18 130/71 94
12/17/24 23:08 12/17/24 23:08 12/17/24 23:08 12/17/24 23:08 12/17/24 23:08
Lab Results - Hematology
12/16/24 12/17/24 12/18/24
04:58 06:01 04:32
WBC 8.3 10.9 H 11.4 H
Lab Results - Chemistry
12/16/24 12/17/24 12/18/24
04:58 06:01 04:32
BUN 19 18 17
Creatinine 1.0 1.0 0.9
Estimated Creat Clear 99 99 110
Albumin 3.2 L
Microbiology Results
12/16/24 11:19 Anaerobic Culture - Preliminary
Foot - Right Culture pending. Anaerobic cultures are examined after 3
days incubation. Additional information to follow.
12/16/24 11:19 Wound Culture - Preliminary
Foot - Right Gram Stain - Preliminary
Therapeutic Drug Monitoring
Vancomycin Peak 27.2 ug/ml (18-26) H 12/17/24 10:00
Vancomycin Trough 14.4 ug/ml (5-20) 12/18/24 04:32
Random Vancomycin 10.3 ug/ml 12/12/24 06:27
--- NOTE | 2024-12-18 07:54 | W.PN.HOSP.TC ---
Today's Communication/Plan
-
See AP
Assessment / Plan
Assessment / Plan
A/P:
A 59-year-old man who is being managed for right foot nonhealing wound, osteomyelitis
Past medical history significant for essential hypertension, hyperlipidemia, diabetes, and peripheral vascular insufficiency
Status post left AKA, right TMA, and vascular surgeries
#Right foot cellulitis and necrosis
#Patient with DM/PVD s/p
- (10/21/2024)
Balloon angioplasty of right proximal anterior tibial artery severe focal stenosis with 3 mm angioplasty balloon.
Balloon angioplasty of the distal BRADLEY artery with 1.5 mm angioplasty balloon.
-(10/22/2024).
Right partial hallux amputation with primary closure of the Right big toe
-(12/05/2024)
Resection of the base of the proximal phalanx and partial first metatarsal with partial closure:
-(12/08/2024).
Selective cannulation of right posterior tibial artery with limited balloon angioplasty with 2 mm angioplasty balloon:
-(12/17/2024)
Right Transmetatarsal amputation with primary closure done yesterday POD #2
- Follow Path and intraop cultures
- Non weight bearing
-Continue IV antibiotics, Zosyn and vancomycin.
#Acute blood loss on chronic Anemia
Has received 1 unit of PRBC. H/H 8.1/23.9
Iron studies
#Diabetes mellitus type 2
Insulin sliding scale
Continue Farxiga
#LINDY:
-Resolved and stable
#Dry eye:
-Eyedrops for few days
#Constipation:
-Improving, Continue bowel regimen
#Hypertension:
Lisinopril 40 Mg p.o. daily
Hydralazine 50 Mg p.o. daily
Hydrochlorothiazide 25 Mg p.o. daily
#Hyperlipidemia:
Continue home statin
DVT prophylaxis:
Lovenox SQ
CODE STATUS:
Full code
Dispo planning
Anticipated Discharge: 24 - 48 hours
Subjective/Interval History
-
Date of Service: December 18, 2024
No new complains today
Had BM yesterday
Pain is bearable
Objective Data
-
Labs:
Laboratory Results
12/18/24
04:32
WBC 11.4 H
Hgb 8.1 L
Hct 23.9 L
Plt Count 436 H
Sodium 135
Potassium 4.2
Chloride 104
Carbon Dioxide 24
BUN 17
Creatinine 0.9
Glucose 67 L
Calcium 9.4
Vital Signs:
Vital Signs
Temp Pulse Resp BP Pulse Ox
98.2 F 89 18 130/71 94
12/17/24 23:08 12/17/24 23:08 12/17/24 23:08 12/17/24 23:08 12/17/24 23:08
I&O
12/17/24 12/18/24 12/19/24
06:59 06:59 06:59
Intake Total 1175 / 1175 2145 / 2145
Output Total 1550 / 1550 2750 / 2750
Balance -375 / -375 -605 / -605
Review of Systems
-
History Source: Patient
Constitutional: Reports No Symptoms
EENT: Reports No Symptoms Reported
Respiratory: Reports No Symptoms
Cardiac: Reports No Symptoms
Abdomen/GI: Reports No Symptoms
Genitourinary: Reports No Symptoms
Neuro: Reports No Symptoms
Endocrine: Reports No Symptoms
Hematologic / Lymphatic: Reports No Symptoms
Physical Exam
-
General: Well Developed, Well Nourished, No Apparent Distress, Comfortable and Conversant
HEENT: Normocephalic, Atraumatic and Moist Mucous Membranes
Respiratory: Clear to Auscultation
Cardiac: Regular Rhythm and S1/S2
GI: Soft, Nontender, Nondistended and No Hepatosplenomegaly
Musculoskeletal: No Clubbing, No Cyanosis, No Edema and Other (Left leg AKA wound VAC drainage present, to be changed Friday. Right leg in wound dressing, clean and dry trace pedal edema, )
Neuro: Awake, AO x 3 and Nonfocal/Grossly Intact
Psych: Calm
[2024-12-18 07:55] VITALS: BP 167/83
[2024-12-18 08:20] LABS: Glucose - Point of Care 69 mg/dl (70-99)
[2024-12-18] MEDS: NOVOLOG FLEXPEN-LOW RESISTANCE SC ×3 (08:43→17:42)
[2024-12-18] MEDS: CATAPRES 0.1 MG PO (09:04)
[2024-12-18] MEDS: ORETIC 25 MG PO (09:04)
[2024-12-18] MEDS: SENOKOT 8.6 MG PO ×2 (09:04→19:48)
[2024-12-18] MEDS: APRESOLINE 50 MG PO (09:04)
[2024-12-18] MEDS: MIRALAX 17 GRAMS PO (09:04)
[2024-12-18] MEDS: ZESTRIL 40 MG PO (09:04)
[2024-12-18] MEDS: FARXIGA 10 MG PO (09:04)
[2024-12-18] MEDS: CRESTOR 20 MG PO (09:05)
[2024-12-18] MEDS: DUPHALAC/CHRONULAC 20 GRAMS PO (09:05)
[2024-12-18] MEDS: NORVASC 10 MG PO (09:05)
[2024-12-18] MEDS: LOW STRENGTH ASPIRIN 81 MG PO (09:05)
[2024-12-18] MEDS: SANTYL OINTMENT 1 APPLIC TOPICAL (09:05)
[2024-12-18 11:58] LABS: Glucose - Point of Care 86 mg/dl (70-99)
[2024-12-18 11:58] LABS: Glucose - Point of Care 98 mg/dl (70-99)
--- NOTE | 2024-12-18 13:33 | W.PN.UPDATE ---
Update Note
Progress Note Update
Seen and the patient independently. Agree with the plan ,e resident formulated, discussed
59-year-old with vascular disease and right foot cellulitis
CVS: S1-S2 normal
Chest: CTA B/L
Abdomen: Soft, NT , Bowel sounds present
Extremities: Decreased pulses on the right foot DP
# Right foot cellulitis and necrosis in the setting of PAD, diabetes
MRI of the foot concerning for osteomyelitis of the second met head and proximal phalanx
Rt partial hallux amputation 10/22/24
S/p Rt foot debridement of necrotic tissue and resection of base of the proximal phalanx and 1st met head with partial primary closure 12/05/24-cultures with staph lugdunensis and Bacteroides fragilis
Status post TMA with primary closure on 12/16/2024
Pain control
Continue Zosyn and vancomycin
Follow pathology and cultures
# Left BKA (H/O LT BKA 08/2024) stump-vascular did stump site debridement with wound VAC placement and right lower extremity arteriogram with [employer] on 12/08/2024.
Wound VAC due to be changed on 12/20/2024
Wound care following
# Peripheral artery disease-decreased pulses-nursing to notify vascular
# Anemia- S/P 1 unit of blood transfusion this admission
# Mild thrombocytosis-likely secondary to infection
# Acute kidney injury-resolved
# Diabetes-hemoglobin [id number] Farxiga, metformin and sliding scale coverage
# Hypertension-continue Norvasc/clonidine/hydralazine/HCTZ/lisinopril
# Hyperlipidemia with continue statin
# Constipation-continue bowel regimen
# Obesity with a BMI of 31
# DVT prophylaxis and Lovenox
# Full code
Discussed with nursing at bedside
Case management to check the patient has wound VAC set up at the rehab prior to discharge
Will discuss with infectious disease regarding antibiotic duration for discharge
Make sure hemoglobin is stable prior to discharge ? Tomorrow
[2024-12-18 15:50] VITALS: BP 141/75
--- NOTE | 2024-12-18 16:02 | W.PN.POD ---
Today's Communication
Today's Communication
patient stable per podiatry .
Nursing to do dressings once daily to Rt foot
Assessment / Plan
-
S/P Right foot Transmetatarsal amputation POD # 2
S/p Rt foot debridement of necrotic tissue and resection of base of the proximal phalanx and 1st met head with partial primary closure 12/05/24
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
Rt partial hallux amputation 10/22/24
Plan ; Changed surgical dressings, removed all packing, applied adaptic, dry gauze and kerlix to Right fot
If patitent gets d/sara Rt foot dressings with adaptic, dry gauze and kerlix once daily
NWB to Rt foot
Cont abx per ID
Pending wound cultures.
Subjective
Chief Complaint
Right foot gangrene
Subjective
Patient seen at bedside, doing well, No strike through bleeding in surgical dressings from Rt foot. No fever, chills.
His Post op pain in his Rt foot well controlled with pain medication , slept fine
Objective
Temp Pulse Resp BP Pulse Ox
98.3 F 90 20 141/75 98
12/18/24 15:50 12/18/24 15:50 12/18/24 15:50 12/18/24 15:50 12/18/24 15:50
12/18/24 04:32
12/18/24 04:32
Vital Signs and Lab results were reviewed.
Rt foot audible AT pulse with doppler.
Rt foot both skin flaps are warm to touch, pink, well perfused
Rt foot no edema, no new necrosis.
Right foot TMA site clean, no active bleeding, intact sutures, no local hematoma, no tenderness, no new discoloration, intact sutures,
Surgical flaps edges are pink, healthy
[2024-12-18 16:35] LABS: Iron 42 ug/dl (49-181)
[2024-12-18 16:44] LABS: Total Iron Binding Capacity 245 ug/dl (261-462)
[2024-12-18] MEDS: LOVENOX 40 MG SC (17:31)
[2024-12-18 17:37] LABS: Ferritin 275.0 ng/ml (17.9-464.0)
[2024-12-18] MEDS: FLUSH (NSS) 3 FLUSH IV (21:09)
[2024-12-18 23:01] VITALS: BP 132/73
[2024-12-19] MEDS: TYLENOL 1000 MG PO ×3 (01:02→17:34)
[2024-12-19] MEDS: DILAUDID 1 MG IV ×3 (01:07→08:43)
[2024-12-19] MEDS: ZOSYN 50 IV ×4 (04:25→21:40)
[2024-12-19] MEDS: FLUSH (NSS) 2 FLUSH IV ×2 (04:26→05:15)
[2024-12-19 05:20] LABS: Hematocrit 23.9 % (39.0-52.0); Hemoglobin 7.9 g/dL (13.0-18.0); Mean Corp Hgb Conc. 33.1 g/dL (33.0-37.0); Mean Corpuscular Volume 88.5 fL (80.0-94.0); Platelet Count 437 10^3/uL (130-400); Red Cell Dist. Width 14.8 % (11.5-14.5)
[2024-12-19 05:44] LABS: Blood Urea Nitrogen 15 mg/dl (9-20); Calcium 9.6 mg/dl (8.4-10.2); Carbon Dioxide 27 mmol/L (22-30); Chloride 103 mmol/L (98-107); Estimated Creatinine Clearance 110 ml/min; Glucose 84 mg/dl (70-99); Potassium 4.0 mmol/L (3.5-5.1); Sodium 136 mmol/L (135-145); eGFR > 60.00
[2024-12-19] MEDS: FLUSH (NSS) 1 FLUSH IV (06:08)
[2024-12-19] MEDS: VANCOCIN 535 MG IV (06:08)
--- NOTE | 2024-12-19 07:06 | PTCARENOTE ---
Accucheck was 90 at 2130 and 108 at 0300.
--- NOTE | 2024-12-19 07:24 | W.PN.HOSP.TC ---
Today's Communication/Plan
-
Continue ongoing care
Assessment / Plan
Assessment / Plan
A/P:
A 59-year-old man who is being managed for right foot nonhealing wound, osteomyelitis
Past medical history significant for essential hypertension, hyperlipidemia, diabetes, and peripheral vascular insufficiency
Status post left AKA, right TMA, and vascular surgeries
#Right foot cellulitis and necrosis
#Patient with DM/PVD s/p
- (10/21/2024)
Balloon angioplasty of right proximal anterior tibial artery severe focal stenosis with 3 mm angioplasty balloon.
Balloon angioplasty of the distal BRADLEY artery with 1.5 mm angioplasty balloon.
-(10/22/2024).
Right partial hallux amputation with primary closure of the Right big toe
-(12/05/2024)
Resection of the base of the proximal phalanx and partial first metatarsal with partial closure:
-(12/08/2024).
Selective cannulation of right posterior tibial artery with limited balloon angioplasty with 2 mm angioplasty balloon:
-(12/17/2024)
Right Transmetatarsal amputation with primary closure POD #3
-
Microbiology
12/16/24 11:19 Anaerobic Culture - Preliminary
Foot - Right Culture pending. Anaerobic cultures are examined after 3
days incubation. Additional information to follow.
12/16/24 11:19 Wound Culture - Preliminary
Foot - Right Gram Stain - Preliminary
-Wound dressing changed by podiatry yesterday
- Follow Path and intraop cultures
- Non weight bearing
-Continue IV antibiotics, Zosyn and vancomycin.
-Wound VAC due to be changed on 12/20/2024
-Continue ongoing wound care
-Pain management, change to Oxycodone
-Ensure bowel regimen
-For possible discharge tomorrow
#Acute blood loss on anemia of chronic disease
Has received 1 unit of PRBC. H/H today 7.9/23.9
Fe- 42L, TIBC-245L, %Sat- 17L. Ferr- 275N
Continue to monitor Hb
Transfuse for < Hb 7 or symptomatic
# Peripheral artery disease-decreased pulses-
Was seen with vascular surgeon
Peripheral pulses by doppler- BRADLEY; Strong, DPA- Above medial malleolus
#Diabetes mellitus type 2
Insulin sliding scale
Continue Farxiga
#LINDY:
-Resolved and stable
#Dry eye:
-Eyedrops for few days
#Constipation:
-Continue bowel regimen
#Hypertension:
Lisinopril 40 Mg p.o. daily
Hydralazine 50 Mg p.o. daily
Hydrochlorothiazide 25 Mg p.o. daily
Monitor
#Hyperlipidemia:
Continue home statin
#Obesity
- with a BMI of 31
#DVT prophylaxis:
Lovenox SQ
# CODE STATUS:
Full code
Dispo Planning, CM aware
Anticipated Discharge: Within 24 hours
Subjective/Interval History
-
Date of Service: December 19, 2024
Patient met lying in bed
C/O post op pain
Last bowel movement 2 days ago
Objective Data
-
Labs:
Laboratory Results
12/19/24
04:53
WBC 9.8
Hgb 7.9 L
Hct 23.9 L
Plt Count 437 H
Sodium 136
Potassium 4.0
Chloride 103
Carbon Dioxide 27
BUN 15
Creatinine 0.9
Glucose 84
Calcium 9.6
Vital Signs:
Vital Signs
Temp Pulse Resp BP Pulse Ox
98.3 F 84 20 132/73 94
12/18/24 23:01 12/18/24 23:01 12/18/24 23:01 12/18/24 23:01 12/18/24 23:01
I&O
12/18/24 12/19/24 12/20/24
06:59 06:59 06:59
Intake Total 2145 / 2145 1475 / 1475
Output Total 2750 / 2750 1600 / 1600
Balance -605 / -605 -125 / -125
Review of Systems
-
History Source: Patient
Constitutional: Reports No Symptoms
EENT: Reports No Symptoms Reported
Respiratory: Reports No Symptoms
Cardiac: Reports No Symptoms
Abdomen/GI: Reports No Symptoms
Genitourinary: Reports No Symptoms
Neuro: Reports No Symptoms
Endocrine: Reports No Symptoms
Hematologic / Lymphatic: Reports No Symptoms
Physical Exam
-
General: Well Developed, Well Nourished, No Apparent Distress, Comfortable and Conversant
HEENT: Normocephalic, Atraumatic and Moist Mucous Membranes
Respiratory: Clear to Auscultation
Cardiac: Regular Rhythm and S1/S2
GI: Soft, Nontender, Nondistended and No Hepatosplenomegaly
Musculoskeletal: No Clubbing, No Cyanosis and Other (Left leg AKA wound VAC drainage present, to be changed Friday. Right leg in wound dressing, clean and pedal edema on the right ankle, )
Neuro: Awake, AO x 3 and Nonfocal/Grossly Intact
Psych: Calm
--- NOTE | 2024-12-19 07:44 | PHA.VAN.FU ---
Vancomycin Assessment / Plan
- Assessment
Renal Function: Stable
In the past 24 hrs, patient has been: Afebrile
Concomitant Antimicrobials: ZOSYN
- Dosing Plan
Continue: 1750MG Q24H
- Monitoring Plan
Level(s) appropriate: Recheck trough at minimum of weekly intervals, Repeat sooner for changes in renal function or clinical status
- Follow Up
Pharmacy will continue to follow.
Vancomycin Follow UP
- -
Patient Age: 59
Patient Sex: Male
Vancomycin Day #: 17
Indication: Skin And Soft Tissue
Requesting Provider: Dr. Owens (resident) / Ananda
Pertinent Antimicrobial Allergies:
NKDA
Height / Weight:
Height 5 ft 11 in
Actual Weight 103.51 kg
Pertinent Past Medical History: T2DM, PAD, BMI ~32
- Vital Signs / Lab Results
Temp Pulse Resp BP Pulse Ox
98.3 F 84 20 132/73 94
12/18/24 23:01 12/18/24 23:01 12/18/24 23:01 12/18/24 23:01 12/18/24 23:01
Lab Results - Hematology
12/17/24 12/18/24 12/19/24
06:01 04:32 04:53
WBC 10.9 H 11.4 H 9.8
Lab Results - Chemistry
12/17/24 12/18/24 12/19/24
06:01 04:32 04:53
BUN 18 17 15
Creatinine 1.0 0.9 0.9
Estimated Creat Clear 99 110 110
Albumin 3.2 L
Microbiology Results
12/16/24 11:19 Anaerobic Culture - Preliminary
Foot - Right Culture pending. Anaerobic cultures are examined after 3
days incubation. Additional information to follow.
12/16/24 11:19 Wound Culture - Preliminary
Foot - Right Gram Stain - Preliminary
Therapeutic Drug Monitoring
Vancomycin Peak 27.2 ug/ml (18-26) H 12/17/24 10:00
Vancomycin Trough 14.4 ug/ml (5-20) 12/18/24 04:32
Random Vancomycin 10.3 ug/ml 12/12/24 06:27
[2024-12-19 08:00] VITALS: BP 169/84
[2024-12-19 08:18] LABS: Glucose - Point of Care 116 mg/dl (70-99)
[2024-12-19 08:18] LABS: Glucose - Point of Care 90 mg/dl (70-99)
[2024-12-19 08:18] LABS: Glucose - Point of Care 75 mg/dl (70-99)
[2024-12-19 08:18] LABS: Glucose - Point of Care 108 mg/dl (70-99)
[2024-12-19] MEDS: NOVOLOG FLEXPEN-LOW RESISTANCE SC ×3 (08:24→17:30)
[2024-12-19] MEDS: LOW STRENGTH ASPIRIN 81 MG PO (08:25)
[2024-12-19] MEDS: MIRALAX 17 GRAMS PO (08:25)
[2024-12-19] MEDS: APRESOLINE 50 MG PO (08:25)
[2024-12-19] MEDS: FARXIGA 10 MG PO (08:25)
[2024-12-19] MEDS: ORETIC 25 MG PO (08:25)
[2024-12-19] MEDS: ZESTRIL 40 MG PO (08:25)
[2024-12-19] MEDS: CATAPRES 0.1 MG PO (08:25)
[2024-12-19] MEDS: SENOKOT 8.6 MG PO ×2 (08:25→21:41)
[2024-12-19] MEDS: NORVASC 10 MG PO (08:25)
[2024-12-19] MEDS: CRESTOR 20 MG PO (08:26)
[2024-12-19] MEDS: DUPHALAC/CHRONULAC 20 GRAMS PO (08:26)
[2024-12-19] MEDS: SANTYL OINTMENT 1 APPLIC TOPICAL (08:26)
[2024-12-19 11:14] LABS: Vitamin B12 782 pg/ml (239-931)
[2024-12-19] MEDS: DULCOLAX 10 MG RECTAL (11:53)
[2024-12-19] MEDS: ROXICODONE 10 MG PO ×3 (11:53→22:17)
--- NOTE | 2024-12-19 12:06 | CM ---
CM following re: discharge planning.
Reviewed pt's chart, met with pt.
Pt is POD#2 S/P Right foot Transmetatarsal amputation and S/p Rt foot debridement of necrotic tissue and resection of base of the proximal phalanx and 1st met head with partial primary closure 12/05/24
MD team asked to whether or not wound vac is ordered for pt at a [facility]. Director of case management alerted also of a potential discharge with a request to check wound vac situation.
Per podiatry, recommended wound care daily on Right foot.
Per , Vascular surgery placed a wound vac on left foot with a plan to change it tomorrow 12/20/24.
Per appointment coordinator, wound measurement will be done during wound vac change to determine a type of wound vac pt needs and she will continue to follow up with vac change as ordered on 12/20.
Per CM note a plan is for pt to go to [facility], approval in the note with LCD and NRD 12/20/24. CM spoke to [facility] liaison Kim and she sated she is aware of pt's surgery on R foot and she has no information regarding wound vac
on L foot. Per Kim, a wound vac will be ordered as soon as wound measurement available and type of wound care recommended. Also, per Kim, she feels that pt still will be admitted tomorrow regardless of his LCD approval and she will check with
her track supervisor. Per Kim, wound vac will be ordered and will be available at the same day, just she needs information of wound vac and wound measurement.
Per , pt's Hmg is low and pt is not ready for discharge today, probably tomorrow.
CM will follow up with discharge needs tomorrow and will follow up with MD team and [facility] liaison to coordinate a safe discharge plan.
D/c plan: [facility] when pt is medically stable. Wound vac needs/concerns needs to be taking care
CM will follow to assist pt with a safe discharge plan/recommendations to [facility]
--- NOTE | 2024-12-19 13:28 | W.PN.UPDATE ---
Update Note
Progress Note Update
Seen and the patient independently. Agree with the plan ,e resident formulated, discussed
59-year-old with vascular disease and right foot cellulitis
CVS: S1-S2 normal
Chest: CTA B/L
Abdomen: Soft, NT , Bowel sounds present
Extremities: Pulses by doppler
# Right foot cellulitis and necrosis in the setting of PAD, diabetes
MRI of the foot concerning for osteomyelitis of the second met head and proximal phalanx
Rt partial hallux amputation 10/22/24
S/p Rt foot debridement of necrotic tissue and resection of base of the proximal phalanx and 1st met head with partial primary closure 12/05/24-cultures with staph lugdunensis and Bacteroides fragilis
Status post TMA with primary closure on 12/16/2024
Pain control
Continue Zosyn and vancomycin
Follow pathology and cultures
# Left BKA (H/O LT BKA 08/2024) stump-vascular did stump site debridement with wound VAC placement and right lower extremity arteriogram with MACHINE BUFFER on 12/08/2024.
Wound VAC due to be changed on 12/20/2024
Wound care following
# Peripheral artery disease-decreased pulses-vascular evaluated. Pulses feeble but present per Doppler
# Anemia- S/P 1 unit of blood transfusion this admission. Hb 7.9
# Mild thrombocytosis-likely secondary to infection
# Acute kidney injury-resolved
# Diabetes-hemoglobin [id number] Farxiga, metformin and sliding scale coverage
# Hypertension-continue Norvasc/clonidine/hydralazine/HCTZ/lisinopril
# Hyperlipidemia with continue statin
# Constipation-continue bowel regimen
# Obesity with a BMI of 31
# DVT prophylaxis and Lovenox
# Full code
Discussed with nursing
D/W case management. Wound VAC needs to be arranged. Patient authorization is also ending tomorrow may need to extend this.
[2024-12-19] MEDS: FERRLECIT 110 MG IV (14:55)
[2024-12-19] MEDS: GLUCOPHAGE XR EXTENDED RELEASE 750 MG PO (14:56)
[2024-12-19 15:55] VITALS: BP 137/77
[2024-12-19] MEDS: LOVENOX 40 MG SC (17:33)
[2024-12-19 18:02] LABS: Glucose - Point of Care 109 mg/dl (70-99)
[2024-12-19 18:02] LABS: Glucose - Point of Care 94 mg/dl (70-99)
[2024-12-19 21:57] LABS: Glucose - Point of Care 111 mg/dl (70-99)
[2024-12-19 23:37] VITALS: BP 129/74
[2024-12-20 02:10] LABS: Glucose - Point of Care 94 mg/dl (70-99)
[2024-12-20] MEDS: TYLENOL 1000 MG PO ×3 (03:00→17:14)
[2024-12-20] MEDS: ZOSYN 50 IV ×4 (03:11→22:17)
[2024-12-20 05:50] LABS: Hematocrit 24.1 % (39.0-52.0); Hemoglobin 7.6 g/dL (13.0-18.0)
[2024-12-20] MEDS: VANCOCIN 535 MG IV (05:57)
[2024-12-20] MEDS: ROXICODONE 10 MG PO ×2 (06:00→14:00)
[2024-12-20 07:48] VITALS: BP 142/73
--- NOTE | 2024-12-20 08:25 | PHA.VAN.FU ---
Vancomycin Assessment / Plan
- Assessment
Renal Function: Stable
In the past 24 hrs, patient has been: Afebrile
Concomitant Antimicrobials: piperacillin/tazobactam
- Dosing Plan
Adjust Regimen to: Vanc 1500mg Q24H
New Regimen Predicts: AUC (444), Peak (26.5), Trough (12.2)
Dosing Comments: will reduce dosing to maintain patient on lowest effective dosing
- Monitoring Plan
No level(s) ordered at this time: consider levels in next few days
- Follow Up
Pharmacy will continue to follow.
Vancomycin Follow UP
- -
Patient Age: 59
Patient Sex: Male
Vancomycin Day #: 18
Indication: Skin And Soft Tissue
Requesting Provider: Dr. Owens (resident) / Ananda
Pertinent Antimicrobial Allergies:
NKDA
Height / Weight:
Height 5 ft 11 in
Actual Weight 103.51 kg
Pertinent Past Medical History: T2DM, PAD, BMI ~32
- Vital Signs / Lab Results
Temp Pulse Resp BP Pulse Ox
98.2 F 78 16 142/73 95
12/20/24 07:48 12/20/24 07:48 12/20/24 07:48 12/20/24 07:48 12/20/24 07:48
Lab Results - Hematology
12/18/24 12/19/24
04:32 04:53
WBC 11.4 H 9.8
Lab Results - Chemistry
12/18/24 12/19/24
04:32 04:53
BUN 17 15
Creatinine 0.9 0.9
Estimated Creat Clear 110 110
Microbiology Results
12/16/24 11:19 Anaerobic Culture - Preliminary
Foot - Right Culture pending. Anaerobic cultures are examined after 3
days incubation. Additional information to follow.
12/16/24 11:19 Wound Culture - Preliminary
Foot - Right Gram Stain - Preliminary
Therapeutic Drug Monitoring
Vancomycin Peak 27.2 ug/ml (18-26) H 12/17/24 10:00
Vancomycin Trough 14.4 ug/ml (5-20) 12/18/24 04:32
Random Vancomycin 10.3 ug/ml 12/12/24 06:27
[2024-12-20] MEDS: NOVOLOG FLEXPEN-LOW RESISTANCE SC ×3 (08:30→17:18)
[2024-12-20 08:40] LABS: Glucose - Point of Care 78 mg/dl (70-99)
[2024-12-20] MEDS: DUPHALAC/CHRONULAC 20 GRAMS PO (09:19)
[2024-12-20] MEDS: ORETIC 25 MG PO (09:20)
[2024-12-20] MEDS: FARXIGA 10 MG PO (09:20)
[2024-12-20] MEDS: CATAPRES 0.1 MG PO (09:20)
[2024-12-20] MEDS: SENOKOT 8.6 MG PO ×2 (09:20→20:38)
[2024-12-20] MEDS: CRESTOR 20 MG PO (09:21)
[2024-12-20] MEDS: NORVASC 10 MG PO (09:21)
[2024-12-20] MEDS: LOW STRENGTH ASPIRIN 81 MG PO (09:21)
[2024-12-20] MEDS: ZESTRIL 40 MG PO (09:21)
[2024-12-20] MEDS: SANTYL OINTMENT 1 APPLIC TOPICAL (09:24)
[2024-12-20] MEDS: GLUCOPHAGE XR EXTENDED RELEASE 750 MG PO (09:24)
[2024-12-20] MEDS: MIRALAX 17 GRAMS PO (09:24)
[2024-12-20] MEDS: APRESOLINE 50 MG PO (09:24)
--- NOTE | 2024-12-20 09:32 | W.PN.ID1 ---
Date of Service
Date of Service: December 20, 2024
Today's Communication
Continue antibiotics.
Assessment / Plan
Left foot wound with dermal gangrene s/p debridement
Hx recent right hallux amputation
Leukocytosis
Limb threatening ischemia; s/p angiography (12/08/2024)
DM type II (uncontrolled; HbA1c = 7.7)
HTN
Anemia
HLD
Recommendations:
Prior wound cultures with Serratia marcescens. Current wound cultures with Staphylococcus lugdunensis and Bacteroides fragilis
Prior MRI findings reviewed, and are concerning for osteomyelitis of the second met head and proximal phalanx given that the wound is overlying the concerned areas.
Continue with Zosyn 3.375 gm IV q.6 hours
Continue vancomycin. Follow Vanco levels closely to prevent nephrotoxicity.
Follow intraoperative cultures. Given removal of prior area of osteomyelitis, a long course of antibiotics may not be necessary.
Check post-op x-ray for new baseline.
Given underlying profound vascular disease, patient remains extremely high risk for limb loss.
����������������������������������������������������������
Chief Complaint
-: Other (Right foot infection)
Subjective / Review of Systems
Patient seen and examined. Overall feels well.
Review of Systems: No Fever and No Chills
Vital Signs / Physical Exam
Vital Signs
Vital Signs
Temp Pulse Resp BP Pulse Ox
98.2 F 78 16 142/73 95
12/20/24 07:48 12/20/24 09:24 12/20/24 07:48 12/20/24 09:24 12/20/24 07:48
Physical Exam
Constitutional: No Acute Distress, Comfortable and Non-toxic
Eyes: Sclera Anicteric
Pulmonary: Non Labored
Gastrointestinal: Non Distended
Extremities: Edema (Right lower extremity)
Wound: Other (Right TMA examined. Sutures in place. Medial aspect of wound with small area of opening. No significant drainage, discharge or malodor.)
Neurological: Awake and Alert
Psychological: Calm
Objective Data
Lab Data
Lab Results
12/20/24 04:53
12/19/24 04:53
PT 15.1 Sec (11.4-14.6) H 12/15/24 12:10
INR 1.14 12/15/24 12:10
Estimated Creat Clear 110 ml/min 12/19/24 04:53
Lactic Acid 1.1 mmol/L (0.7-2.0) 12/03/24 12:56
Total Bilirubin 0.2 mg/dl (0.2-1.3) 12/17/24 06:01
AST 15 U/L (17-59) L 12/17/24 06:01
ALT 21 U/L (0-50) 12/17/24 06:01
Alkaline Phosphatase 91 U/L (38-126) 12/17/24 06:01
Most recent labs reviewed.
Micro Results:
12/16/24 11:19 Anaerobic Culture - Preliminary
Foot - Right Culture pending. Anaerobic cultures are examined after 3
days incubation. Additional information to follow.
12/16/24 11:19 Wound Culture - Preliminary
Foot - Right Gram Stain - Preliminary
12/05/24 13:04 Wound Culture - Final
Foot - Right Staphylococcus lugdunensis
Gram Stain - Final
12/05/24 13:04 Anaerobic Culture - Final
Foot - Right Bacteroides fragilis
12/03/24 13:00 Blood Culture - Final
Blood/Venous No Growth - Final Report
12/03/24 12:30 Blood Culture - Final
Blood/Venous No Growth - Final Report
12/03/24 12:30 Wound Culture - Final
Foot - Right Gram Stain - Final
Wound/abscess/other Cult Final 12/05/24
Few Staphylococcus lugdunensis
Organism 1 Staphylococcus lugdunensis
1. Staphylococcus lugdunensis
M.I.C. RX
--------- ---
Amoxicillin/Potas. Clavulanate <=4/2 R
Ampicillin >8 R
Clindamycin <=0.5 S
Gentamicin <=4 S
Erythromycin <=0.5 S
Levofloxacin <=1 S
Oxacillin >2 R
Tetracycline <=4 S
Trimethoprim/Sulfamethoxazole <=0.5/9.5 S
Vancomycin 1 S
Wound/abscess/other Cult Final 10/22/24
Serratia marcescens from anaerobic culture swab
Organism 1 Serratia marcescens
1. Serratia marcescens
M.I.C. RX
--------- ---
Amoxicillin/Potas. Clavulanate >16/8 R
Ampicillin >16 R
Ampicillin/Sulbactam >16/8 R
Aztreonam <=4 S
Cefazolin >16 R
Cefepime <=2 S
Ceftazidime 4 S
Ceftriaxone <=1 S
Ertapenem <=0.5 S
Ciprofloxacin <=0.25 S
Gentamicin <=2 S
Meropenem <=1 S
Piperacillin/Tazobactam <=8 S
Tetracycline 8 I
Tobramycin <=2 S
Trimethoprim/Sulfamethoxazole <=2/38 S
Imaging:
12/07/2024 MRI right lower extremity: postoperative changes with interval resection of the residual proximal phalanx of the great toe and distal first metatarsal. Signal changes in the area would favor reactive marrow edema/postoperative changes
rather than osteomyelitis. Hyperintense signal is noted in the second metatarsal head as well as proximal phalanx of the second toe. Findings may suggest early osteomyelitis as a possibility, although not definite.
12/03/2024 X-ray right foot: s/p partial amputation of great toe. Base of proximal phalanx remains. No evidence of bony destruction.
[2024-12-20 11:56] LABS: Glucose - Point of Care 112 mg/dl (70-99)
[2024-12-20 12:24] LABS: LDH 135 U/L (120-246)
[2024-12-20 12:35] VITALS: BP 139/78; PULSE 79; O2SAT 97
[2024-12-20 12:49] VITALS: BP 139/78; PULSE 82; O2SAT 97
--- NOTE | 2024-12-20 13:20 | WOUNDNOTE ---
R MEDIAL PORTION OF TMA
--- NOTE | 2024-12-20 13:25 | WOUNDNOTE ---
RAFFAELE RN NOTE: Followed up today along with resident So at bedside. L BKA wound vac dressing discontinued, base filled in with granulation tissue. Applied saline moistened gauze and dry dressing with brian wrap, confirmed the above with Dr. De La Garza. R TMA
site checked, sutures intact, medial portion of site remains open, scant serosanguineous drainage. Adaptic and dry dressing re applied. Pillows under R leg and L stump. Updated wound care orders per Dr. Heath and discontinued Santyl. Updated
discharge instructions and will follow as needed. Nurse Ese aware of the above and instructed to placed wound vac machine in soiled utility rm for pickup.
[2024-12-20] MEDS: FERRLECIT 110 MG IV (13:59)
--- NOTE | 2024-12-20 14:16 | W.PN.UPDATE ---
Update Note
Progress Note Update
Seen and the patient independently. Agree with the plan ,resident formulated, discussed, see changes in my documentation
59-year-old with vascular disease and right foot cellulitis
CVS: S1-S2 normal
Chest: CTA B/L
Abdomen: Soft, NT , Bowel sounds present
Extremities: Pulses by doppler
Left amputation site small ulcer with no drainage, right TMA site with sutures no bleeding
# Right foot cellulitis and necrosis in the setting of PAD, diabetes
MRI of the foot concerning for osteomyelitis of the second met head and proximal phalanx
Rt partial hallux amputation 10/22/24
S/p Rt foot debridement of necrotic tissue and resection of base of the proximal phalanx and 1st met head with partial primary closure 12/05/24-cultures with staph lugdunensis and Bacteroides fragilis
Status post TMA with primary closure on 12/16/2024
NWB to Rt foot
Pain control
Continue Zosyn and vancomycin
Follow pathology and cultures
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
Wound VAC due to be changed today on 12/20/2024
Wound care following
# Peripheral artery disease-decreased pulses-vascular evaluated. Pulses feeble but present per Doppler
# Anemia- S/P 1 unit of blood transfusion this admission. Hb 7.6, repeat today. Heme test stools
# Mild thrombocytosis-likely secondary to infection
# Acute kidney injury-resolved
# Diabetes-hemoglobin [id number] Farxiga, metformin and sliding scale coverage
# Hypertension-continue Norvasc/clonidine/hydralazine/HCTZ/lisinopril
# Hyperlipidemia with continue statin
# Constipation-continue bowel regimen
# Obesity with a BMI of 31
# DVT prophylaxis and Lovenox
# Full code
Spoke to son and updated
D/W case management. Wound VAC needs to be arranged. Patient authorization is also ending tomorrow may need to extend this.
--- NOTE | 2024-12-20 14:56 | CM ---
Reviewed the chart notes and spoke with [facility] liaison with [facility]. New auth is needed.
[facility] NPI# [id number]
Dr. Catina Caro NPI# [id number]
Plan: [facility]. Auth approved 12/20-12/24; NRD 12/24 fax clinicals to [phone]; Auth # [id number].
Call report to: [phone] - Nurse Munroe
Fax report to: [phone]
Medical necessity and transport forms on chart.
[2024-12-20 15:37] LABS: Hematocrit 25.1 % (39.0-52.0); Hemoglobin 8.0 g/dL (13.0-18.0)
[2024-12-20 15:48] VITALS: BP 127/71
--- NOTE | 2024-12-20 16:02 | W.PN.HOSP.TC ---
Today's Communication/Plan
-
Continue to trend hemoglobin, heme stool pending
Continue antibiotics
Continue daily wound care
Continue to monitor
Possible discharge (SNF)
Assessment / Plan
Assessment / Plan
A 59-year-old man who is being managed for right foot nonhealing wound, osteomyelitis
Past medical history significant for essential hypertension, hyperlipidemia, diabetes, and peripheral vascular insufficiency
Status post left AKA, right TMA, and vascular surgeries
#Right foot cellulitis and necrosis
#Patient with DM/PVD s/p
- (10/21/2024)
Balloon angioplasty of right proximal anterior tibial artery severe focal stenosis with 3 mm angioplasty balloon.
Balloon angioplasty of the distal BRADLEY artery with 1.5 mm angioplasty balloon.
-(10/22/2024).
Right partial hallux amputation with primary closure of the Right big toe
-(12/05/2024)
Resection of the base of the proximal phalanx and partial first metatarsal with partial closure:
-(12/08/2024).
Selective cannulation of right posterior tibial artery with limited balloon angioplasty with 2 mm angioplasty balloon:
-(12/17/2024)
Right Transmetatarsal amputation with primary closure POD #3
-
Microbiology
12/16/24 11:19 Anaerobic Culture - Preliminary
Foot - Right Culture pending. Anaerobic cultures are examined after 3
days incubation. Additional information to follow.
12/16/24 11:19 Wound Culture - Preliminary
Foot - Right Gram Stain - Preliminary
-Wound vac off
- Follow Path and intraop cultures
- Non weight bearing
-Continue IV antibiotics, Zosyn Day 15 and vancomycin Day 5 (Wound culture (+)Staphylococcus lugdunensis, Bacteroides fragilis)
-Continue ongoing wound care
-Pain management- Oxycodone
#Acute blood loss on anemia of chronic disease
Has received 1 unit of PRBC.
Hgb- 8.1-->7.9-->7.6-->8.0
Fe- 42L, TIBC-245L, %Sat- 17L. Ferr- 275N
Heme stool test pending/rectal exam
Continue to monitor Hb
Transfuse for < Hb 7 or symptomatic
# Peripheral artery disease
Peripheral pulses by doppler- BRADLEY; Strong, DPA- Above medial malleolus
Vascular surgery following
#Diabetes mellitus type 2
Insulin sliding scale
Continue Farxiga
#LINDY:
-Resolved and stable
#Dry eye:
-Eyedrops for few days
#Constipation:
-Continue bowel regimen
#Hypertension:
Lisinopril 40 Mg p.o. daily
Hydralazine 50 Mg p.o. daily
Hydrochlorothiazide 25 Mg p.o. daily
Monitor
#Hyperlipidemia:
Continue home statin
#Obesity
- with a BMI of 31
#DVT prophylaxis:
Lovenox SQ
# CODE STATUS:
Full code
Dispo Planning, CM aware
Anticipated Discharge: 24 - 48 hours
Subjective/Interval History
-
Date of Service: December 20, 2024
Pain is worse on the right foot. Pain score 8 out of 10. No pain reported on the left. Denies fever, chills, weakness, palpitations.
Objective Data
-
Labs:
Laboratory Results
12/20/24 12/20/24
04:53 15:12
Hgb 7.6 L 8.0 L
Hct 24.1 L 25.1 L
Vital Signs:
Vital Signs
Temp Pulse Resp BP Pulse Ox
97.5 F 85 16 127/71 96
12/20/24 15:48 12/20/24 15:48 12/20/24 15:48 12/20/24 15:48 12/20/24 15:48
I&O
12/19/24 12/20/24 12/21/24
06:59 06:59 06:59
Intake Total 1675 / 1675 3040 / 3040
Output Total 1600 / 1600 2750 / 2750
Balance 75 / 75 290 / 290
Review of Systems
-
Constitutional: Reports No Symptoms and Other
EENT: Reports No Symptoms Reported
Respiratory: Reports No Symptoms
Cardiac: Reports No Symptoms
Abdomen/GI: Reports No Symptoms
Genitourinary: Reports No Symptoms
Neuro: Reports Other (Denies headache, tremors, weakness)
Physical Exam
-
General: Well Developed, Well Nourished, No Apparent Distress, Comfortable and Conversant
HEENT: Normocephalic, Atraumatic and Moist Mucous Membranes
Respiratory: Clear to Auscultation
Cardiac: Regular Rhythm and S1/S2
GI: Soft, Nontender and Nondistended
Musculoskeletal: No Clubbing, No Cyanosis and Other (Left leg AKA wound, granulated tissue with minimal drainage and surrounding hyperpigmentation. Right leg- intact sutures with minimal drainage and erythema.)
Skin: Warm
Neuro: Awake, AO x 3 and Nonfocal/Grossly Intact
Psych: Calm
[2024-12-20] MEDS: LOVENOX 40 MG SC (17:14)
[2024-12-20 17:18] LABS: Glucose - Point of Care 85 mg/dl (70-99)
[2024-12-20 22:03] LABS: Glucose - Point of Care 127 mg/dl (70-99)
[2024-12-20 23:31] VITALS: BP 143/78
[2024-12-21] MEDS: ROXICODONE 10 MG PO (00:30)
[2024-12-21] MEDS: TYLENOL PO (04:49)
[2024-12-21] MEDS: ZOSYN 50 IV ×3 (04:49→17:46)
[2024-12-21] MEDS: VANCOCIN 530 MG IV (05:56)
[2024-12-21 06:23] LABS: Hematocrit 23.9 % (39.0-52.0); Hemoglobin 7.7 g/dL (13.0-18.0); Mean Corp Hgb Conc. 32.2 g/dL (33.0-37.0); Mean Corpuscular Volume 88.5 fL (80.0-94.0); Platelet Count 438 10^3/uL (130-400); Red Cell Dist. Width 15.1 % (11.5-14.5)
[2024-12-21 06:41] LABS: Blood Urea Nitrogen 11 mg/dl (9-20); Calcium 9.6 mg/dl (8.4-10.2); Carbon Dioxide 28 mmol/L (22-30); Chloride 104 mmol/L (98-107); Estimated Creatinine Clearance 110 ml/min; Glucose 70 mg/dl (70-99); Potassium 3.8 mmol/L (3.5-5.1); Sodium 137 mmol/L (135-145); eGFR > 60.00
[2024-12-21 07:00] VITALS: BP 167/86
[2024-12-21 08:00] LABS: Glucose - Point of Care 80 mg/dl (70-99)
--- NOTE | 2024-12-21 08:23 | PHA.VAN.FU ---
Vancomycin Assessment / Plan
- Assessment
Renal Function: Stable
WBC's are: WNL
In the past 24 hrs, patient has been: Afebrile
Concomitant Antimicrobials: piperacillin/tazobactam
- Dosing Plan
Continue: Vanc 1500mg Q24H (adjusted 12/20 with first dose today)
- Monitoring Plan
No level(s) ordered at this time: consider levels in next few days
- Follow Up
Pharmacy will continue to follow.
Vancomycin Follow UP
- -
Patient Age: 59
Patient Sex: Male
Vancomycin Day #: 19
Indication: Skin And Soft Tissue
Requesting Provider: Dr. Owens (resident) / Ananda
Pertinent Antimicrobial Allergies:
NKDA
Height / Weight:
Height 5 ft 11 in
Actual Weight 103.51 kg
Pertinent Past Medical History: T2DM, PAD, BMI ~32
- Vital Signs / Lab Results
Temp Pulse Resp BP Pulse Ox
98.5 F 82 18 143/78 97
12/20/24 23:31 12/20/24 23:31 12/20/24 23:31 12/20/24 23:31 12/20/24 23:31
Lab Results - Hematology
12/19/24 12/21/24
04:53 05:52
WBC 9.8 8.7
Lab Results - Chemistry
12/19/24 12/21/24
04:53 05:52
BUN 15 11
Creatinine 0.9 0.9
Estimated Creat Clear 110 110
Microbiology Results
12/16/24 11:19 Anaerobic Culture - Preliminary
Foot - Right Culture pending. Anaerobic cultures are examined after 3
days incubation. Additional information to follow.
Therapeutic Drug Monitoring
Vancomycin Peak 27.2 ug/ml (18-26) H 12/17/24 10:00
Vancomycin Trough 14.4 ug/ml (5-20) 12/18/24 04:32
Random Vancomycin 10.3 ug/ml 12/12/24 06:27
[2024-12-21] MEDS: DUPHALAC/CHRONULAC 20 GRAMS PO (09:12)
[2024-12-21] MEDS: NOVOLOG FLEXPEN-LOW RESISTANCE SC ×3 (09:12→17:44)
[2024-12-21] MEDS: GLUCOPHAGE XR EXTENDED RELEASE 750 MG PO (09:13)
[2024-12-21] MEDS: FARXIGA 10 MG PO (09:13)
[2024-12-21] MEDS: TYLENOL 1000 MG PO ×2 (09:13→17:47)
[2024-12-21] MEDS: APRESOLINE 50 MG PO ×2 (09:13→20:02)
[2024-12-21] MEDS: NORVASC 10 MG PO (09:14)
[2024-12-21] MEDS: LOW STRENGTH ASPIRIN 81 MG PO (09:14)
[2024-12-21] MEDS: SENOKOT 8.6 MG PO ×2 (09:14→20:02)
[2024-12-21] MEDS: CRESTOR 20 MG PO (09:14)
[2024-12-21] MEDS: CATAPRES 0.1 MG PO (09:14)
[2024-12-21] MEDS: ORETIC 25 MG PO (09:14)
[2024-12-21] MEDS: MIRALAX 17 GRAMS PO (09:14)
[2024-12-21] MEDS: ZESTRIL 40 MG PO (09:15)
[2024-12-21 10:06] LABS: Hematocrit 26.8 % (39.0-52.0); Hemoglobin 8.5 g/dL (13.0-18.0)
[2024-12-21] MEDS: DULCOLAX 10 MG RECTAL (11:21)
[2024-12-21 11:29] LABS: Glucose - Point of Care 90 mg/dl (70-99)
--- NOTE | 2024-12-21 11:40 | CM ---
Reviewed the chart notes. CM continues to be available to patient/family and is monitoring medical plan for needs at discharge.
Plan: [facility]. Auth approved 12/20-12/24; NRD 12/24 fax clinicals to [phone]; Auth # [id number].
Call report to: [phone] - Nurse Munroe
Fax report to: [phone]
Medical necessity and transport forms on chart.
--- NOTE | 2024-12-21 13:55 | W.PN.UPDATE ---
Update Note
Progress Note Update
Seen and the patient independently. Agree with the plan ,resident formulated, discussed, see changes in my documentation
59-year-old with vascular disease and right foot cellulitis
CVS: S1-S2 normal
Chest: CTA B/L
Abdomen: Soft, NT , Bowel sounds present
Extremities: Pulses by Doppler
# Right foot cellulitis and necrosis in the setting of PAD, diabetes
MRI of the foot concerning for osteomyelitis of the second met head and proximal phalanx
Rt partial hallux amputation 10/22/24
S/p Rt foot debridement of necrotic tissue and resection of base of the proximal phalanx and 1st met head with partial primary closure 12/05/24-cultures with staph lugdunensis and Bacteroides fragilis
Status post TMA with primary closure on 12/16/2024
NWB to Rt foot
Pain control
Zosyn and vancomycin to be changed to p.o. antibiotics for 10 days
Follow pathology and cultures
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
Wound VAC discontinued on the left BKA site
Wound care following
# Peripheral artery disease-decreased pulses-vascular evaluated. Pulses feeble but present per Doppler
# Anemia- S/P 1 unit of blood transfusion this admission. Hb 8.5
# Mild thrombocytosis-likely secondary to infection
# Acute kidney injury-resolved
# Diabetes-hemoglobin F2h-wiyhxyqo Farxiga, metformin and sliding scale coverage
# Hypertension-continue Norvasc/clonidine/hydralazine/HCTZ/lisinopril. Increase the hydralazine dose to 50 mg twice daily
# Hyperlipidemia with continue statin
# Constipation-continue bowel regimen
# Obesity with a BMI of 31
# DVT prophylaxis and Lovenox
# Full code
Spoke to son and updated 12/20/24
Our team D/W ID, Podiatry
D/W Wound care
NO wound Vac for Left BKA site
time for discharge over 30 min
--- NOTE | 2024-12-21 14:52 | W.PN.HOSP.TC ---
Today's Communication/Plan
-
Continue antibiotics as outpatient for 10 more days.
Follow-up with vascular surgery and podiatry as outpatient.
Follow-up with PCP for anemia and hypertension.
Wound care as instructed.
Bowel regimen
Oxycodone 10 mg as needed for pain.
Discharge patient.
Assessment / Plan
Assessment / Plan
A 59-year-old man who is being managed for right foot nonhealing wound, osteomyelitis
Past medical history significant for essential hypertension, hyperlipidemia, diabetes, and peripheral vascular insufficiency
Status post left AKA, right TMA, and vascular surgeries
#Right foot cellulitis and necrosis
#Patient with DM/PVD s/p
- (10/21/2024)
Balloon angioplasty of right proximal anterior tibial artery severe focal stenosis with 3 mm angioplasty balloon.
Balloon angioplasty of the distal BRADLEY artery with 1.5 mm angioplasty balloon.
-(10/22/2024).
Right partial hallux amputation with primary closure of the Right big toe
-(12/05/2024)
Resection of the base of the proximal phalanx and partial first metatarsal with partial closure:
-(12/08/2024).
Selective cannulation of right posterior tibial artery with limited balloon angioplasty with 2 mm angioplasty balloon:
-(12/17/2024)
Right Transmetatarsal amputation with primary closure POD #3
-
Microbiology
12/16/24 11:19 Anaerobic Culture - Preliminary
Foot - Right Culture pending. Anaerobic cultures are examined after 3
days incubation. Additional information to follow.
12/16/24 11:19 Wound Culture - Preliminary
Foot - Right Gram Stain - Preliminary
- Non weight bearing
-Wound culture (12/05/24) (+)Staphylococcus lugdunensis, Bacteroides fragilis)-- -Continue IV antibiotics, Zosyn and Vancomycin in SNF for 10 more days
-Repeat Right Foot culture (12/16/24)- (-) organisms
-Continue ongoing wound care
-Pain management- Oxycodone
-Follow up with vascular and podiatry outpatient
#Acute blood loss on anemia of chronic disease
Has received 1 unit of PRBC.
Hgb- 8.1-->7.9-->7.6-->8.0-->7.7-->8.5
Fe- 42L, TIBC-245L, %Sat- 17L. Ferr- 275N
Heme stool test pending
Continue to monitor Hb
Transfuse for < Hb 7 or symptomatic
-Ferrous fumarate 324 mg every other day PO
-Follow up with PCP as outpatient
# Peripheral artery disease
Peripheral pulses by doppler- BRADLEY; Strong, DPA- Above medial malleolus
Vascular surgery following
#Diabetes mellitus type 2
Insulin sliding scale
Continue Farxiga
#LINDY:
-Resolved and stable
#Dry eye:
-Eyedrops for few days
#Constipation:
-Continue bowel regimen
#Hypertension:
-increased hydralazine 50mg to BID PO
Lisinopril 40 Mg p.o. daily
Hydrochlorothiazide 25 Mg p.o. daily
Monitor
Follow up with PCP as outpatient
#Hyperlipidemia:
Continue home statin
#Obesity
- with a BMI of 31
#DVT prophylaxis:
Lovenox SQ
# CODE STATUS:
Full code
Dispo Planning, CM aware
Anticipated Discharge: Today
Subjective/Interval History
-
Date of Service: December 21, 2024
Pain in the right foot is still persistent. Left foot is not painful denies dizziness, palpitation, weakness. Expressed willingness to go to SNF.
Objective Data
-
Labs:
Laboratory Results
12/21/24 12/21/24
05:52 09:51
WBC 8.7
Hgb 7.7 L 8.5 L
Hct 23.9 L 26.8 L
Plt Count 438 H
Sodium 137
Potassium 3.8
Chloride 104
Carbon Dioxide 28
BUN 11
Creatinine 0.9
Glucose 70
Calcium 9.6
Vital Signs:
Vital Signs
Temp Pulse Resp BP Pulse Ox
98.5 F 83 20 167/86 97
12/21/24 07:00 12/21/24 09:15 12/21/24 07:00 12/21/24 09:15 12/21/24 07:00
I&O
12/20/24 12/21/24 12/22/24
06:59 06:59 06:59
Intake Total 3040 / 3040 630 / 630
Output Total 2750 / 2750 3025 / 3025
Balance 290 / 290 -2395 / -2395
Review of Systems
-
Constitutional: Denies Fever or No Appetite
EENT: Reports No Symptoms Reported
Respiratory: Reports No Symptoms
Cardiac: Reports No Symptoms
Abdomen/GI: Reports No Symptoms
Genitourinary: Reports No Symptoms
Musculoskeletal: Reports Other (Surgical site pain)
Neuro: Reports Other (Denies headache, tremors, weakness)
Hematologic / Lymphatic: Denies Bleeding
Physical Exam
-
General: Well Developed, Well Nourished, No Apparent Distress, Comfortable and Conversant
HEENT: Normocephalic, Atraumatic and Moist Mucous Membranes
Respiratory: Clear to Auscultation
Cardiac: Regular Rhythm and S1/S2
GI: Soft, Nontender and Nondistended
Musculoskeletal: No Clubbing, No Cyanosis and Other (Left leg AKA wound, Right foot wound)
Skin: Warm
Neuro: Awake, AO x 3 and Nonfocal/Grossly Intact
Psych: Calm
[2024-12-21 15:00] VITALS: BP 139/72
--- NOTE | 2024-12-21 15:06 | W.PN.ID1 ---
Date of Service
Date of Service: December 21, 2024
Today's Communication
Continue antibiotics. See below�
Assessment / Plan
Left foot wound with dermal gangrene s/p debridement; s/p TMA (12/16/24)
Hx recent right hallux amputation
Leukocytosis
Limb threatening ischemia; s/p angiography (12/08/2024)
DM type II (uncontrolled; HbA1c = 7.7)
HTN
Anemia
HLD
Recommendations:
Prior wound cultures with Serratia marcescens. Most recent wound cultures with Staphylococcus lugdunensis and Bacteroides fragilis
Prior MRI findings reviewed, and are concerning for osteomyelitis of the second met head and proximal phalanx given that the wound is overlying the concerned areas.
Patient is status post right TMA, with removal of area of concern for osteomyelitis.
Continue with Zosyn 3.375 gm IV q.6 hours for another 7 days
Continue vancomycin also for 7 days. Follow Vanco levels closely to prevent nephrotoxicity.
Will need close follow-up with Podiatry.
Given underlying profound vascular disease, patient remains extremely high risk for limb loss.
����������������������������������������������������������
Chief Complaint
-: Other (Right foot infection)
Subjective / Review of Systems
Review of Systems: No Fever and No Chills
Vital Signs / Physical Exam
Vital Signs
Vital Signs
Temp Pulse Resp BP Pulse Ox
98.5 F 83 20 167/86 97
12/21/24 07:00 12/21/24 09:15 12/21/24 07:00 12/21/24 09:15 12/21/24 07:00
Physical Exam
Constitutional: No Acute Distress, Comfortable and Non-toxic
Eyes: Sclera Anicteric
Pulmonary: Non Labored
Gastrointestinal: Non Distended
Neurological: Awake and Alert
Psychological: Calm
Physical Exam:
Left BKA site dressed. No strikethrough. VAC removed.
Right foot dressed. No strikethrough.
Objective Data
Lab Data
Lab Results
12/21/24 09:51
12/21/24 05:52
PT 15.1 Sec (11.4-14.6) H 12/15/24 12:10
INR 1.14 12/15/24 12:10
Estimated Creat Clear 110 ml/min 12/21/24 05:52
Lactic Acid 1.1 mmol/L (0.7-2.0) 12/03/24 12:56
Total Bilirubin 0.2 mg/dl (0.2-1.3) 12/17/24 06:01
AST 15 U/L (17-59) L 12/17/24 06:01
ALT 21 U/L (0-50) 12/17/24 06:01
Alkaline Phosphatase 91 U/L (38-126) 12/17/24 06:01
Most recent labs reviewed.
Micro Results:
12/16/24 11:19 Wound Culture - Final
Foot - Right Gram Stain - Final
12/16/24 11:19 Anaerobic Culture - Final
Foot - Right NO ANAEROBES ISOLATED
12/05/24 13:04 Wound Culture - Final
Foot - Right Staphylococcus lugdunensis
Gram Stain - Final
12/05/24 13:04 Anaerobic Culture - Final
Foot - Right Bacteroides fragilis
12/03/24 13:00 Blood Culture - Final
Blood/Venous No Growth - Final Report
12/03/24 12:30 Blood Culture - Final
Blood/Venous No Growth - Final Report
12/03/24 12:30 Wound Culture - Final
Foot - Right Gram Stain - Final
Wound/abscess/other Cult Final 12/05/24
Few Staphylococcus lugdunensis
Organism 1 Staphylococcus lugdunensis
1. Staphylococcus lugdunensis
M.I.C. RX
--------- ---
Amoxicillin/Potas. Clavulanate <=4/2 R
Ampicillin >8 R
Clindamycin <=0.5 S
Gentamicin <=4 S
Erythromycin <=0.5 S
Levofloxacin <=1 S
Oxacillin >2 R
Tetracycline <=4 S
Trimethoprim/Sulfamethoxazole <=0.5/9.5 S
Vancomycin 1 S
Wound/abscess/other Cult Final 10/22/24
Serratia marcescens from anaerobic culture swab
Organism 1 Serratia marcescens
1. Serratia marcescens
M.I.C. RX
--------- ---
Amoxicillin/Potas. Clavulanate >16/8 R
Ampicillin >16 R
Ampicillin/Sulbactam >16/8 R
Aztreonam <=4 S
Cefazolin >16 R
Cefepime <=2 S
Ceftazidime 4 S
Ceftriaxone <=1 S
Ertapenem <=0.5 S
Ciprofloxacin <=0.25 S
Gentamicin <=2 S
Meropenem <=1 S
Piperacillin/Tazobactam <=8 S
Tetracycline 8 I
Tobramycin <=2 S
Trimethoprim/Sulfamethoxazole <=2/38 S
Imaging:
12/07/2024 MRI right lower extremity: postoperative changes with interval resection of the residual proximal phalanx of the great toe and distal first metatarsal. Signal changes in the area would favor reactive marrow edema/postoperative changes
rather than osteomyelitis. Hyperintense signal is noted in the second metatarsal head as well as proximal phalanx of the second toe. Findings may suggest early osteomyelitis as a possibility, although not definite.
12/03/2024 X-ray right foot: s/p partial amputation of great toe. Base of proximal phalanx remains. No evidence of bony destruction.
Care Review
Plan reviewed with: Physician (Hospitalist; Resident)
[2024-12-21] MEDS: FERRLECIT 110 MG IV (15:15)
--- NOTE | 2024-12-21 15:45 | W.DCSUMMARY ---
Discharge Summary
Discharge Data
Date of Admission: 12/03/24
Date of Discharge: 12/21/24
-
Pending Results: No
Hospital Course
Discharging Physician : Fide Martinez MD, Abigail Ibanez MD
Disposition : SNF
Primary care physician : Dr. Ramon Dickson
Principal Discharge diagnosis : Right foot cellulitis and necrosis in setting of peripheral vascular disease and diabetes mellitus status post resection at the base of the proximal phalanx and partial first metatarsal with partial closure,
Osteomyelitis, Acute kidney injury
Chronic Discharge diagnosis : Constipation, Hypertension, Hyperlipidemia, Obesity
Hospital Course :
59-year-old male past with history of hypertension, diabetes presenting to the emergency department today with concerns of worsening skin changes to the right distal foot seen by the marble installer on day of admission. He was sent in by his marble installer
for concerns of worsening gangrene and potential infection to the area. Additionally had vascular surgery 1 month prior, as well as a great toe amputation at that time as well.
At the ER, skin changes to the right distal foot with black discoloration to the right distal forefoot extending 1 cm into the forefoot surrounding but not including the second toe first toe; small amount of serosanguineous fluid draining from the
area with no obvious purulence, warm and dry and skin intact was noted. WBC 9.6 , Lactic Acid 1.1. Piperacillin/Tazo 4.5 IV and vancomycin 2000 mg given. Blood and wound culture taken. Ketorolac given for pain management.
The following problems were addressed during this admission:
#Right foot cellulitis and necrosis
#Patient with DM/PVD s/p
- (10/21/2024)
Balloon angioplasty of right proximal anterior tibial artery severe focal stenosis with 3 mm angioplasty balloon.
Balloon angioplasty of the distal BRADLEY artery with 1.5 mm angioplasty balloon.
-(10/22/2024).
Right partial hallux amputation with primary closure of the Right big toe
-(12/05/2024)
Resection of the base of the proximal phalanx and partial first metatarsal with partial closure:
-(12/08/2024).
Selective cannulation of right posterior tibial artery with limited balloon angioplasty with 2 mm angioplasty balloon:
-(12/17/2024)
Right Transmetatarsal amputation with primary closure POD #3
-Non weight bearing
-Wound culture (12/05/24) (+)Staphylococcus lugdunensis, Bacteroides fragilis)-- -Given IV antibiotics, Zosyn and Vancomycin, will be continued until December 30, 2024
-Repeat Right Foot culture (12/16/24)- showed no organism
-Wound care done on will be continued as outpatient
-Pain management with Dilaudid, but was discontinued and replaced with oxycodone preparation for outpatient pain management
-Vascular, podiatry, infectious disease, wound care team was on board throughout management
-Follow up with vascular and podiatry outpatient
#Acute blood loss on anemia of chronic disease
Patient receive 1 unit of PRBC.
Hgb- 8.1-->7.9-->7.6-->8.0-->7.7-->8.5
Fe- 42L, TIBC-245L, %Sat- 17L. Ferr- 275N
Hemoglobin was monitored and plan to transfuse for < Hb 7 or symptomatic
The patient was given given ferric sodium gluconate complex to be transition to ferrous fumarate 324 mg every other day PO as outpatient
-Follow up with PCP as outpatient
# Peripheral artery disease
Peripheral pulses by doppler- BRADLEY; Strong, DPA- Above medial malleolus
Vascular surgery was on board
#Diabetes mellitus type 2
-Stable
Patient was on insulin sliding scale
Continued Farxiga
#LINDY:
Creatinine noted to be slightly increased at 1.4 from baseline of 1.2 on 6th hospital day. IV fluids was given and Farxiga, hydrochlorothiazide, and lisinopril was placed on hold temporarily. Vancomycin levels was monitored closely and nephrotoxins
were avoided. Renal function was monitored. Resolved the next day, and creatinine continued to be stable throughout.
#Dry eye:
- Given eyedrops for few days
#Constipation:
-The patient was on bowel regimen of MiraLAX daily, lactulose 20 mg PO daily and Senokot 8.6 twice daily p.o.
#Hypertension:
-Blood pressure was noted to be high, possibly pain mediated
-increased hydralazine 50mg to BID PO
-Continued lisinopril 40 Mg p.o. daily
-Continued hydrochlorothiazide 25 Mg p.o. daily
Monitoring done
Follow up with PCP as outpatient
#Hyperlipidemia:
Continued home statin
#Obesity
- with a BMI of 31
- PT/OT consulted
- Follow-up with PCP as outpatient
Important imaging findings :
Foot X Ray (12/20/2024):
FINDINGS: AP and lateral views of the right foot.
Patient is status post amputation of the right foot at the level of the proximal to mid first through fifth metatarsal bones.
Vascular calcifications are present.
Mild calcification involving the distal Achilles tendon compatible with calcific tendinosis.
Well-corticated 4 mm x 3 mm bony density dorsal to the talus, stable, possibly from old fracture.
IMPRESSION: Postop amputation of the right foot, at the level of the proximal to mid shafts of the first through fifth metatarsal bones
Chest X Ray (12/14/2024):
FINDINGS/IMPRESSION:
Right PICC with the catheter tip in the SVC.
Mild elevation of the right hemidiaphragm. No focal consolidation, pleural effusion, or pneumothorax. The cardiomediastinal silhouette is normal. Chronic degenerative changes of the spine.
Lower Extremity MRI (12/07/2024)
FINDINGS:
Interval resection of the residual proximal phalanx of the great toe and first metatarsal head. There is mild STIR hyperintense signal throughout the residual first metatarsal. There is no associated confluent low T1 signal. There is STIR
hyperintense signal within the adjacent soft tissues with overlying osseous defect, likely secondary to recent postoperative changes. There is no definite fluid collection. There appears to be a small soft tissue defect overlying the second
metatarsal phalangeal joint. There is STIR hyperintense signal within the second metatarsal head as well as the proximal phalanx of the second toe. Within the shaft of the proximal phalanx there is mild T1 hypointense signal (series 501 image 12 and
series 801 image 12). There is mild STIR hyperintense signal throughout the intrinsic muscles of the foot which can be seen with neuropathy/atrophy.
IMPRESSION:
Postoperative changes with interval resection of the residual proximal phalanx of the great toe and distal first metatarsal. STIR hyperintense signal within the residual first metatarsal without additional signal changes which would favor reactive
marrow edema/post operative changes rather than osteomyelitis. There are postoperative changes in the adjacent soft tissues without discrete fluid collection.
There is STIR hyperintense signal within the second metatarsal head as well as the proximal phalanx of the second toe. There is associated mild T1 hypointense signal within the shaft of the proximal phalanx of the second toe for which early
osteomyelitis is possible.
Extremity Arterial Study (12/03/2024):
Findings:
Right Lower Extremity:
Right Brachial pressure: 140 mmHg
Right DPA: 254 mmHg
Right TEST DEPARTMENT HELPER: 254 mmHg
Right BARRY: DPA -NC-, TEST DEPARTMENT HELPER -NC-, previously NC
Right TBI: not obtained due to bandaging, previously 0.48
Duplex Right:
Common femoral artery has a PSV 99 cm/s with a multiphasic waveform.
Profunda femoral artery has a PSV 67 cm/s with a multiphasic waveform.
Proximal superficial femoral artery PSV 80 cm/s with a multiphasic waveform.
Mid superficial femoral artery PSV 92 cm/s with a multiphasic waveform.
Distal superficial femoral artery PSV 97 cm/s with a multiphasic waveform.
Popliteal artery PSV 145 cm/s with a multiphasic waveform.
Continuous Doppler waveforms: There was multiphasic waveforms seen the dorsalis pedis and posterior tibial artery.
IMPRESSION: Unobtainable right ankle brachial indices. The toe brachial index was unobtainable secondary to bandage. There are multiphasic waveforms from the common femoral artery through the popliteal artery. No flow-limiting focal stenosis is
identified. At duplex imaging, mixed monophasic and multiphasic waveforms in the anterior tibial artery. The Doppler waveforms at the ankle are multiphasic.
Foot X Ray (12/03/2024)-
FINDINGS:
There has been partial amputation of the great toe. The base of the proximal phalanx remains. There is no evidence of bony destruction. No acute fractures nor dislocations are noted. There are vascular calcifications. There is no subcutaneous
emphysema.
There is mild soft tissue swelling of the forefoot.
IMPRESSION: Postsurgical change of the right great toe.
Mild soft tissue swelling of the forefoot.
Procedure findings :
Discharge Plan
-
Patient Disposition: Correction/SNF
Discharge Diagnosis/Procedures: Right foot cellulitis and necrosis in setting of peripheral vascular disease and diabetes mellitus status post resection at the base of the proximal phalanx and partial first metatarsal with partial closure
Osteomyelitis
Acute kidney injury
Constipation
Hypertension
Hyperlipidemia
Obesity
Condition: Fair
Diet: Diabetic, Carb Controlled
Activity: As tolerated
Additional Activity: Nonweightbearing right foot
Driving Restrictions: No driving
Bathing Restrictions: None
Other Services: PT and OT
Activity Restrictions/Additional Instructions:
Wound Care Instructions
R TMA: Per Dr. Heath- clean with saline, adaptic, dry gauze and kerlix once daily
NWB to Rt foot
L BKA per vascular: clean with saline, Saline moistened gauze, dry gauze then foam dressing, secure with brian wrap, change daily and prn drainage.
Follow up with Dr. Heath and vascular team
Follow up with PCP regarding high blood pressure and anemia
Referrals:
Stanislaw Malave DO [Active, Infectious Diseases] - in one to two weeks
Ramon Dickson MD [Family Provider, Family Practice] - in less than 1 week
Referral Note: Please follow up on patient's high blood pressure and anemia.
Vivien Heath DPM [Specified Professional Personl, Podiatry] - 12/22/24
Referral Note: Call to set up an appointment with your doctor for next Friday (12/22/2024)
Cindy Griffith CRNP [Specified Professional Personl, Vascular Surgery] - 12/30/24 1:30 pm
Referral Note: Vascular surgery office follow-up
Additional Discharge Medication Instructions: Last day of Antibiotics 12/30/24.
Prescriptions:
New
Zosyn in dextrose (iso-osm) 3.375 gram/50 mL Piggyback
3.375 g IV Q6H 10 Days Qty: 2250 0RF
hydralazine 50 mg Tablet
50 mg PO BID Qty: 60 0RF
Vancomycin [Vancocin] 1500 MG
0.9% Sodium Chloride 500 ml [Nss] 500 ML
353.333 mls/hr IV DAILY@0600
Reason for use: Infection
Ordered By: Abigail Ibanez MD, Resident
Last Taken: 12/21/24 05:56 530 mls
Protocol: None
Protocol Text:
DOSING PER PHARMACY
Please contact pharmacy with any questions.
ferrous fumarate 324 mg (106 mg iron) tablet
324 mg PO Q OTHER DAY Qty: 30 0RF
oxycodone 10 mg tablet
10 mg PO Q4H PRN (Reason: moderate pain) Qty: 10 0RF
senna 8.6 mg capsule
8.6 mg PO BID Qty: 60 0RF
Continued
hydrochlorothiazide 25 mg Tablet
25 mg PO DAILY
lisinopril 40 mg tablet
40 mg PO DAILY
aspirin 81 mg Tablet,Chewable
81 mg PO DAILY Qty: 120 0RF
acetaminophen [Tylenol Extra Strength] 500 mg Tablet
1,000 mg PO Q6HPRN PRN (Reason: mild pain)
metformin 750 mg Tablet Extended Release 24 Hr
750 mg PO DAILY
amlodipine [Norvasc] 10 mg Tablet
10 mg PO DAILY
rosuvastatin 20 mg Tablet
20 mg PO DAILY 30 Days Qty: 30 0RF
dapagliflozin propanediol 10 mg Tablet
10 mg PO DAILY 30 Days Qty: 30 0RF
clonidine HCl 0.1 mg tablet
0.1 mg PO DAILY 30 Days Qty: 30 0RF
Discontinued
hydralazine 50 mg tablet
50 mg PO DAILY
Patient Comments:
patient did not realize this was tid but he had only been taking it daily.
Discharge Orders:
Discharge Patient (As Directed); Ordered 12/21/24
Ordered By: Abigail Ibanez
Discharge Date and Time
Discharge Date/Time: 12/21/24 20:29
Print Language: BARBADIAN
[2024-12-21 17:35] LABS: Glucose - Point of Care 94 mg/dl (70-99)
[2024-12-21] MEDS: LOVENOX 40 MG SC (17:46)
[2024-12-21 19:45] VITALS: BP 138/78
== END 2024-12-21 20:29 | DRG 464 ==
LOC: 2 NORTH 17:01
PROVIDERS: Hospitalist; Physician Assistant; ADMITTING PHYSICIAN Internal Medicine; ATTENDING PHYSICIAN Hospitalist; CONSULT PHYSICIAN Internal Medicine Infectious Disease; CONSULT PHYSICIAN Podiatrist Foot & Ankle Surgery; EMERGENCY PHYSICIAN Emergency Medicine; FAMILY PHYSICIAN Family Medicine; OTHER PHYSICIAN Surgery Vascular Surgery
PROC: 0QBN0ZZ Excision of Right Metatarsal, Open Approach (ICD-10-PCS; 2024-12-05)
PROC: 0JBP0ZZ Excision of Left Lower Leg Subcutaneous Tissue and Fascia, Open Approach (ICD-10-PCS; 2024-12-08)
PROC: B41D1ZZ Fluoroscopy of Aorta and Bilateral Lower Extremity Arteries using Low Osmolar Contrast (ICD-10-PCS; 2024-12-08)
PROC: 047R3ZZ Dilation of Right Posterior Tibial Artery, Percutaneous Approach (ICD-10-PCS; 2024-12-08)
PROC: 0Y6M0ZC Detachment at Right Foot, Partial 3rd Ray, Open Approach (ICD-10-PCS; 2024-12-16)
PROC: 0Y6M0ZF Detachment at Right Foot, Partial 5th Ray, Open Approach (ICD-10-PCS; 2024-12-16)
PROC: 0Y6M0ZB Detachment at Right Foot, Partial 2nd Ray, Open Approach (ICD-10-PCS; 2024-12-16)
PROC: 0Y6M0Z9 Detachment at Right Foot, Partial 1st Ray, Open Approach (ICD-10-PCS; 2024-12-16)
PROC: 0Y6M0ZD Detachment at Right Foot, Partial 4th Ray, Open Approach (ICD-10-PCS; 2024-12-16)
PROC: 30233N1 Transfusion of Nonautologous Red Blood Cells into Peripheral Vein, Percutaneous Approach (ICD-10-PCS; 2024-12-17)
DX: T87.53 Necrosis of amputation stump, right lower extremity (principal); D62 Acute posthemorrhagic anemia; E11.52 Type 2 diabetes mellitus with diabetic peripheral angiopathy with gangrene; I70.261 Atherosclerosis of native arteries of extremities with gangrene, right leg; L03.115 Cellulitis of right lower limb; N17.9 Acute kidney failure, unspecified; M86.171 Other acute osteomyelitis, right ankle and foot; T87.43 Infection of amputation stump, right lower extremity; I10 Essential (primary) hypertension; E78.00 Pure hypercholesterolemia, unspecified; T87.54 Necrosis of amputation stump, left lower extremity; Y83.5 Amputation of limb(s) as the cause of abnormal reaction of the patient, or of later complication, without mention of misadventure at the time of the procedure; E66.09 Other obesity due to excess calories; L97.519 Non-pressure chronic ulcer of other part of right foot with unspecified severity; E11.621 Type 2 diabetes mellitus with foot ulcer; R68.89 Other general symptoms and signs; K59.00 Constipation, unspecified; E11.69 Type 2 diabetes mellitus with other specified complication; D75.838 Other thrombocytosis; D63.8 Anemia in other chronic diseases classified elsewhere; Z68.31 Body mass index [BMI] 31.0-31.9, adult; Z89.411 Acquired absence of right great toe; Z89.512 Acquired absence of left leg below knee; Z79.82 Long term (current) use of aspirin; Z79.84 Long term (current) use of oral hypoglycemic drugs
CPT/HCPCS: 11042; 37228; 71045; 73620; 73630; 73718; 75710; 80048; 80053; 80061; 80202; 82010; 82565; 82607; 82728; 82962; 83010; 83036; 83540; 83550; 83605; 83615; 83735; 84443; 84520; 85014; 85018; 85025; 85027; 85610; 86850; 86900; 86901; 86920; 87040; 87070; 87075; 87076; 87147; 87185; 87186; 87205; 88304; 88307; 88311; 93922; 93925; 96374; 96375; 97163; 97167; 97530; 97535; 99285; C1725; C1760; C1769; C1887; C1894; J2916; P9016

== ENCOUNTER 2025-02-13 20:18 | Inpatient (IN) | payer BC, SELFPAY ==
[2025-02-13] VITALS (14 sets, daily range): BP systolic 91–149; BP diastolic 52–78; BMI 31.3; BMI 27.6
[2025-02-13 17:59] LABS: Hematocrit 32.9 % (39.0-52.0); Hemoglobin 10.5 g/dL (13.0-18.0); Mean Corp Hgb Conc. 31.9 g/dL (33.0-37.0); Mean Corpuscular Volume 88.9 fL (80.0-94.0); Nucleated Red Blood Cells % 0 % (-); Platelet Count 480 10^3/uL (130-400); Red Cell Dist. Width 15.9 % (11.5-14.5)
[2025-02-13 18:24] LABS: ALT (SGPT) 22 U/L (0-50); AST (SGOT) 20 U/L (17-59); Albumin 3.9 g/dl (3.5-5.0); Alkaline Phosphatase 130 U/L (38-126); Blood Urea Nitrogen 38 mg/dl (9-20); Calcium 9.8 mg/dl (8.4-10.2); Carbon Dioxide 18 mmol/L (22-30); Chloride 98 mmol/L (98-107); Glucose 83 mg/dl (70-99); Potassium 4.1 mmol/L (3.5-5.1); Sodium 131 mmol/L (135-145); Total Protein 7.0 g/dl (6.3-8.2); eGFR 40.38
[2025-02-13 18:36] LABS: Glucose - Point of Care 92 mg/dl (70-99)
--- NOTE | 2025-02-13 19:00 | ED.GENMED ---
History of Present Illness
<Martha Moya MD, Resident - Last Filed: 02/14/25 15:31>
General
Chief Complaint: Skin Problem
Source: patient and family
Time Seen by Provider: 02/13/25 18:30
History of Present Illness
History of Present Illness:
59-year-old male with past medical history of diabetes, peripheral vascular disease status post left below the knee amputation, hypertension, recent right transmetatarsal amputation due to osteomyelitis by Dr. Heath 12/16/24 presents to the
ER for worsening right foot pain. He started to notice increased right foot pain at the transmetatarsal amputation site 4 days ago. His wound care nurse noted worsening odor. He came into the ER today because the pain was starting to become
unbearable. He has been feeling increasingly weak but denies any fevers, chills, nausea, vomiting, diarrhea, upper respiratory tract infection symptoms. Of note, he has been having increasing pain for the past month he used gabapentin and oxycodone
to treat however now the medications are not helping.
In the ER, his blood sugar was 53 and he started to feel a bit nauseous and vomited. Nausea dissipated and repeat blood glucose test within normal range.
Past History
<Martha Moya MD, Resident - Last Filed: 02/14/25 15:31>
Past History
ED Past Medical History: HTN, Hypercholesterolemia, IDDM, Other (Diabetic retinopathy) and Other (PVD, MIKE)
ED Past Surgical History: Orthopedic (ORIF pelvic fx 2015) and Other (Right transmetatarsal amputation 12/2024, Left below the knee amputation 08/2024)
Social History
Tobacco: Other (occasional cigar)
Alcohol: Occasional
Drug: None
Employment: Employed
Family History
Family History: Other (Mother- colon cancer, brother -stomach cancer)
Review of Systems
<Martha Moya MD, Resident - Last Filed: 02/14/25 15:31>
Review of Systems
Allergies reviewed?: Yes
Constitutional: Reports no symptoms
EENT: Reports no symptoms
Respiratory: Reports no symptoms
Cardiac: Reports no symptoms
ABD/GI: Reports nausea
: Reports no symptoms
Musculoskeletal: Reports other (Right foot pain)
Skin: Reports other (Infection of right foot)
Neurological: Reports no symptoms
Phy Exam
<Martha Moya MD, Resident - Last Filed: 02/14/25 15:31>
Physical Exam
Physical Exam:
General: Uncomfortable however nontoxic
Head: Atraumatic
Cardiac: Regular S1-S2
Respiratory: Clear breath sounds bilaterally
Abdomen: Soft, nontender, nondistended, regular bowel sounds in all 4 quadrants
Extremities: Left below the knee amputation noted, right transmittal tarsal amputation wound with open wound, clear yellow discharge noted. No gangrenous tissue noted. Foul smell present. Pedal pulses present with doppler.
Course
<Martha Moya MD, Resident - Last Filed: 02/14/25 15:31>
Orders/Labs/Results
Orders:
Orders
02/13/25 Dinner
Regular
At Your Request: Non-Participating
02/13/25 17:44
C-Reactive Protein Urgent
Comment: ADD ON
CMP [Comprehensive Metabolic Panel] Urgent
Complete Blood Count/With Diff Urgent
Erythrocyte Sed Rate Urgent
Comment: ADD ON
02/13/25 18:49
Electrocardiogram (*1) Urgent
Reason for Study: Other
Other Reason for Exam: Possible Sepsis
Cardiac Monitoring- Treatment ONCE
EKG- Treatment ONCE
IV Insert/Care/Rem.- Treatment PRN
O2 Therapy [RESP] Urgent
Titrate/Wean O2 to maintain O2 sat greater than (%): 93
Special Instructions: TO MAINTAIN CONTINUOUS O2 SATS > OR = 93%
Pulse Ox/cont/shift [RESP] Urgent
Quantity: 1
Special Instructions: CONTINUOUS
02/13/25 18:50
Add On- LAB Urgent
Tests Added?: ESR, CRP
02/13/25 18:52
0.9% Sodium Chloride 1000 ml [Nss] 1,000 ml IV BOLUS
02/13/25 18:57
Lactic Acid Q4H
Comment: ON ICE, CANCEL 2ND ORDER IF FIRST LACTIC ACID LEVEL <2
Blood Culture Q20M
DIANA Source: Blood/Venous
Specimen Description:
Comment: Urgent from separate sites. If patient screens positive for possible sepsis
Blood Culture Q20M
DIANA Source: Blood/Venous
Specimen Description:
Comment: Urgent from separate sites. If patient screens positive for possible sepsis
02/13/25 18:59
HYDROmorphone [Dilaudid] 0.5 mg IV NOW STA
Ondansetron Injectable [Zofran] 4 mg IV NOW STA
02/13/25 19:06
HYDROmorphone [Dilaudid] 0.5 mg IV NOW STA
02/13/25 19:07
Ondansetron Injectable [Zofran] 4 mg IV NOW STA
02/13/25 19:51
Admit/Transfer Patient As Directed
Co-Sign Provider:
Level of Care: Inpatient admission
Assign to:: Telemetry
Physician / Group: clari
Diagnosis: sepsis osteomyelitis at transmetatarsal site
Reason for Telemetry: Arrhythmia
Date to Stop Telemetry: 02/16/25
Time to Stop Telemetry: 11:00
Reason for Hospitalization: sepsis osteomyelitis at transmetatarsal site
Expected length of stay greater than two midnights?: Yes
ELOS- Estimated Length of Stay in days: 2
I certify the patient meets the requirements for IP care: Yes
Code Status As Directed
Resuscitation Status: Full Code
PRN Pain Medication Management As Directed
May give lesser potent ordered pain med per pt: Yes
preference::
Protocol:: Medication orders for pain may be administered in a
manner that supports deferring to patient preference
when the pt is:
- Requesting an ordered lesser potent pain medication.
Least to most potent pain medications are defined
as: acetaminophen < NSAID < tramadol < opioids
(morphine, oxycodone, hydromorphone).
- Requesting a lesser dose of the same medication IF
ORDERED.
- Requesting a less intrusive route of administration
if both routes are prescribed by the provider (PO <
IV).
02/13/25 19:53
Foot, Right 2 View [CR Foot - Right 2 Views] Urgent
Comment:
Reason For Exam: transmestarsal site osteo
02/13/25 19:56
Vancomycin [Vancocin] 2,000 mg 0.9% Sodium Chloride 500 ml [Nss] 500 ml IV NOW
02/13/25 20:00
Piperacillin/Tazo 3.375 Gram [Zosyn] 3.375 gram in 50 ml IV Q6H
02/13/25 22:00
0.9% Sodium Chloride 1000 ml [Nss] 1,000 ml IV 100 mls/hr
Acetaminophen [Tylenol] 650 mg PO Q4HPRN PRN
Dextrose 50%-Water [Dextrose 50% Syringe] 12.5 grams IV [id number] PRN
Glucagon [GlucaGen] 1 mg IM PRN PRN
HYDROmorphone [Dilaudid] 0.5 mg IV Q4HPRN PRN
Heparin 5,000 units SC Q12
VANCOMYCIN Pharmacy to Dose [VANCOCIN Pharmacy to Dose] 1 each Pharmacy To Prepare [Call Pharmacy To Prepare] 0 ml IV PER PROTOCOL
02/13/25 22:00
PODIATRY CONSULT Routine
Consulting Provider: Vivien Heath
Was physician already notified: Yes
Activity As Directed
Activity Level: As Tolerated
Bedside Glucose Monitoring As Directed
Frequency: AC&HS
Additional Instructions:: Change to q6h if pt on TPN, tube feeding or not eating
Vital Signs As Directed
Frequency: Per unit guidelines
DX Deep Vein Thrombosis Video Routine
02/14/25 07:30
Insulin Aspart Corrective Low [Novolog Flexpen-Low Resistance] See Protocol SC AC
02/14/25 10:05
Complete Blood Count/With Diff IN AM
Comprehensive Metabolic Panel IN AM
Glycohemoglobin (HgbA1c) IN AM
02/16/25 11:00
DC Protocol for Telemetry ONCE
Abnormal Lab Results
02/13/25
17:44
RBC 3.70 L 10^6/uL
(4.70-6.10)
Hgb 10.5 L g/dL
(13.0-18.0)
Hct 32.9 L %
(39.0-52.0)
MCHC 31.9 L g/dL
(33.0-37.0)
RDW 15.9 H %
(11.5-14.5)
Plt Count 480 H 10^3/uL
(130-400)
Absolute Neuts (auto) 7.3 H 10^3/uL
(1.4-6.5)
Neutrophils % 76.3 H %
(42.2-75.2)
Lymphocytes % 15.3 L %
(20.5-51.1)
ESR 103 H mm/hour
(0-20)
Sodium 131 L mmol/L
(135-145)
Carbon Dioxide 18 L mmol/L
(22-30)
BUN 38 H mg/dl
(9-20)
Creatinine 1.9 H mg/dL
(0.7-1.3)
Alkaline Phosphatase 130 H U/L
(38-126)
C-Reactive Protein 151.20 H mg/L
(0.0-10.00)
02/13/25 17:44
02/13/25 17:44
Vital Signs
Initial and Last Documented VS:
Initial Vital Signs
Temp Pulse Resp BP Pulse Ox
97.8 F 91 20 95/52 100
02/13/25 17:35 02/13/25 17:35 02/13/25 17:35 02/13/25 17:35 02/13/25 17:35
Last Documented Vital Signs
Temp Pulse Resp BP Pulse Ox
98.9 F 85 16 115/62 100
02/14/25 12:18 02/14/25 12:18 02/14/25 12:18 02/14/25 12:18 02/14/25 12:18
<Geraldine Severino MD - Last Filed: 02/13/25 20:35>
Orders/Labs/Results
Orders:
Orders
02/13/25 Dinner
Regular
At Your Request: Non-Participating
02/13/25 17:44
C-Reactive Protein Urgent
Comment: ADD ON
CMP [Comprehensive Metabolic Panel] Urgent
Complete Blood Count/With Diff Urgent
Erythrocyte Sed Rate Urgent
Comment: ADD ON
02/13/25 18:49
Electrocardiogram (*1) Urgent
Reason for Study: Other
Other Reason for Exam: Possible Sepsis
Cardiac Monitoring- Treatment ONCE
EKG- Treatment ONCE
IV Insert/Care/Rem.- Treatment PRN
O2 Therapy [RESP] Urgent
Titrate/Wean O2 to maintain O2 sat greater than (%): 93
Special Instructions: TO MAINTAIN CONTINUOUS O2 SATS > OR = 93%
Pulse Ox/cont/shift [RESP] Urgent
Quantity: 1
Special Instructions: CONTINUOUS
02/13/25 18:50
Add On- LAB Urgent
Tests Added?: ESR, CRP
02/13/25 18:52
0.9% Sodium Chloride 1000 ml [Nss] 1,000 ml IV BOLUS
02/13/25 18:57
Lactic Acid Q4H
Comment: ON ICE, CANCEL 2ND ORDER IF FIRST LACTIC ACID LEVEL <2
Blood Culture Q20M
DIANA Source: Blood/Venous
Specimen Description:
Comment: Urgent from separate sites. If patient screens positive for possible sepsis
Blood Culture Q20M
DIANA Source: Blood/Venous
Specimen Description:
Comment: Urgent from separate sites. If patient screens positive for possible sepsis
02/13/25 18:59
HYDROmorphone [Dilaudid] 0.5 mg IV NOW STA
Ondansetron Injectable [Zofran] 4 mg IV NOW STA
02/13/25 19:06
HYDROmorphone [Dilaudid] 0.5 mg IV NOW STA
02/13/25 19:07
Ondansetron Injectable [Zofran] 4 mg IV NOW STA
02/13/25 19:51
Admit/Transfer Patient As Directed
Co-Sign Provider:
Level of Care: Inpatient admission
Assign to:: Telemetry
Physician / Group: clari
Diagnosis: sepsis osteomyelitis at transmetatarsal site
Reason for Telemetry: Arrhythmia
Date to Stop Telemetry: 02/16/25
Time to Stop Telemetry: 11:00
[facility] Hospitalization[facility]
Expected length of stay greater than two midnights?: Yes
ELOS- Estimated Length of Stay in days: 2
I certify the patient meets the requirements for IP care: Yes
Code Status As Directed
Resuscitation Status: Full Code
PRN Pain Medication Management As Directed
May give lesser potent ordered pain med per pt: Yes
preference::
Protocol:: Medication orders for pain may be administered in a
manner that supports deferring to patient preference
when the pt is:
- Requesting an ordered lesser potent pain medication.
Least to most potent pain medications are defined
as: acetaminophen < NSAID < tramadol < opioids
(morphine, oxycodone, hydromorphone).
- Requesting a lesser dose of the same medication IF
ORDERED.
- Requesting a less intrusive route of administration
if both routes are prescribed by the provider (PO <
IV).
02/13/25 19:53
Foot, Right 2 View [CR Foot - Right 2 Views] Urgent
Comment:
Reason For Exam: transmestarsal site osteo
02/13/25 19:56
Vancomycin [Vancocin] 2,000 mg 0.9% Sodium Chloride 500 ml [Nss] 500 ml IV NOW
02/13/25 20:00
Piperacillin/Tazo 3.375 Gram [Zosyn] 3.375 gram in 50 ml IV Q6H
02/13/25 22:00
0.9% Sodium Chloride 1000 ml [Nss] 1,000 ml IV 100 mls/hr
Acetaminophen [Tylenol] 650 mg PO Q4HPRN PRN
Dextrose 50%-Water [Dextrose 50% Syringe] 12.5 grams IV [id number] PRN
Glucagon [GlucaGen] 1 mg IM PRN PRN
HYDROmorphone [Dilaudid] 0.5 mg IV Q4HPRN PRN
Heparin 5,000 units SC Q12
VANCOMYCIN Pharmacy to Dose [VANCOCIN Pharmacy to Dose] 1 each Pharmacy To Prepare [Call Pharmacy To Prepare] 0 ml IV PER PROTOCOL
02/13/25 22:00
PODIATRY CONSULT Routine
Consulting Provider: Vivien Heath
Was physician already notified: Yes
Activity As Directed
Activity Level: As Tolerated
Bedside Glucose Monitoring As Directed
Frequency: AC&HS
Additional Instructions:: Change to q6h if pt on TPN, tube feeding or not eating
Vital Signs As Directed
Frequency: Per unit guidelines
DX Deep Vein Thrombosis Video Routine
02/14/25 07:30
Insulin Aspart Corrective Low [Novolog Flexpen-Low Resistance] See Protocol SC AC
02/14/25 10:05
Complete Blood Count/With Diff IN AM
Comprehensive Metabolic Panel IN AM
Glycohemoglobin (HgbA1c) IN AM
02/16/25 11:00
DC Protocol for Telemetry ONCE
Abnormal Lab Results
02/13/25
17:44
RBC 3.70 L 10^6/uL
(4.70-6.10)
Hgb 10.5 L g/dL
(13.0-18.0)
Hct 32.9 L %
(39.0-52.0)
MCHC 31.9 L g/dL
(33.0-37.0)
RDW 15.9 H %
(11.5-14.5)
Plt Count 480 H 10^3/uL
(130-400)
Absolute Neuts (auto) 7.3 H 10^3/uL
(1.4-6.5)
Neutrophils % 76.3 H %
(42.2-75.2)
Lymphocytes % 15.3 L %
(20.5-51.1)
ESR 103 H mm/hour
(0-20)
Sodium 131 L mmol/L
(135-145)
Carbon Dioxide 18 L mmol/L
(22-30)
BUN 38 H mg/dl
(9-20)
Creatinine 1.9 H mg/dL
(0.7-1.3)
Alkaline Phosphatase 130 H U/L
(38-126)
C-Reactive Protein 151.20 H mg/L
(0.0-10.00)
02/13/25 17:44
02/13/25 17:44
Vital Signs
Initial and Last Documented VS:
Initial Vital Signs
Temp Pulse Resp BP Pulse Ox
97.8 F 91 20 95/52 100
02/13/25 17:35 02/13/25 17:35 02/13/25 17:35 02/13/25 17:35 02/13/25 17:35
Last Documented Vital Signs
Temp Pulse Resp BP Pulse Ox
98.9 F 85 16 115/62 100
02/14/25 12:18 02/14/25 12:18 02/14/25 12:18 02/14/25 12:18 02/14/25 12:18
<Martha Moya MD, Resident - Last Filed: 02/14/25 15:31>
MDM/Problems Addressed
Differential Diagnosis Includes:
Cellulitis, abscess, osteomyelitis, sepsis
MDM/Problems Addressed:
Wound culture, blood cultures X 2, x-ray, CBC, CMP to evaluate for systemic infection and signs of osteomyelitis. Reaching out to podiatry and infectious disease for thoughts on starting antibiotics. Technically, he meets sepsis criteria with
elevated respiratory rate and tachycardia however WBC 9.5 within normal limits and does not appear toxic. Podiatry often prefers to wait starting antibiotics in hopes of getting a good wound culture. Due to hypotension we will start fluids.
Podiatry okay with starting antibiotics. ID recommends deep cultures of wounds before starting. X-ray reveled osteomyelitis. Will admit to the hospital for further evaluation and treatment of osteomyelitis. Also noted to have LINDY.
Chronic conditions affecting care: DM, HTN and Other (PVD)
<Martha Moay MD, Resident - Last Filed: 02/14/25 15:31>
*Pulse Oximetry
SaO2: 100
Oxygen Mode of Delivery: Room air
Patient hypoxic: no
*Critical Care Note
Total Time (30-74mins, 75-104mins- exclusive of procedures): Not Applicable
Data Reviewed
Review of Other/Old Records Reveals: Labs (Hemoglobin 12/21/2024 8.5) and Radiology Studies (12/07/2024 lower extremity MRI possible early osteomyelitis in right second metatarsal head as well as the proximal phalanx of the second toe)
Source: patient, records and family
<Geraldine Severino MD - Last Filed: 02/13/25 20:35>
*EKG
Interpreted by ED Provider?: Yes
Interpretation: abnormal
Comparison EKG: no comparison EKG present
Rate: normal
Rhythm: sinus
Linneus: normal axis
Interval: normal interval
QRS Pattern: normal QRS
Ischemia: T-wave inversion
ED Attending Note
<Martha Moya MD, Resident - Last Filed: 02/14/25 15:31>
-
Portions of this chart may have been created with voice recognition software.� Occasional wrong word or��sound alike� substitutions may have occurred due to the inherent limitations of voice recognition software.
<Geraldine Severino MD - Last Filed: 02/13/25 20:35>
ED Attending Note
Patient seen and examined by attending physician: Yes
I performed a history and physical exam of patient and discussed management with resident, I reviewed resident's note and agree with documented findings and plan of care.: Yes
ED Attending Note:
Patient appears nontoxic, however, blood pressure is 90s over 50s, which is acutely low for the patient. Patient does have bilateral pulses in his feet by Doppler. Right foot surgical incision is open with clear yellow discharge. Patient's son
reports that fluid and malodorous smell from right foot is new.
Discharge Plan
Departure
Patient Disposition: Admit
Date of Disposition: 02/13/25
Time of Disposition: 19:00
Presentation/result/management discussed w/ accepting MD/DO: Hospitalist
Discharge Problem:
right foot infection
Interventions
Interventions:
*Risk Screen - Suicide Last Done: 02/13/25 17:35
*General Assessment Last Done: 02/13/25 17:35
*Neglect/Abuse Screening Last Done: 02/13/25 18:48
*ED- Fall Risk Assessment Last Done: 02/13/25 18:48
*ED COVID-19 Vaccine History Last Done: 02/13/25 18:48
*ED Influenza Vaccine History Last Done: 02/13/25 18:48
*Nursing Disposition Last Done: 02/13/25 21:36
ED-Skin Assessment Last Done: 02/13/25 18:46
Discharge Date and Time
Discharge Date/Time: 02/13/25 21:36
[2025-02-13] MEDS: NSS 1000 IV ×2 (19:10→22:44)
[2025-02-13] MEDS: DILAUDID 0.5 MG IV ×2 (19:11→22:44)
[2025-02-13] MEDS: ZOFRAN 4 MG IV (19:11)
--- NOTE | 2025-02-13 19:44 | PHANOTE ---
med rec tech: patient is unable to give med rec, I called his son and left a message.
[2025-02-13 19:50] LABS: C-Reactive Protein 151.20 mg/L (0.0-10.00)
--- NOTE | 2025-02-13 19:57 | HPS.HSE ---
Addendum entered and electronically signed by Harjit Batres MD 02/13/25 21:09:
ID consulted.
Original Note:
Family Physician
-
Family Physician: NOT KNOW UNKNOWN - PT DOES
Chief Complaint
-
foot pain
History of Present Illness
59-year-old male past medical history of PAD status post angioplasty right proximal anterior tibial artery/right posterior tibial artery, right partial hallux amputation, resection of base of proximal phalanx and partial first metatarsal,
osteomyelitis status post transmetatarsal amputation, anemia of chronic disease, type 2 diabetes, constipation, hypertension, hyperlipidemia, obesity, presenting for worsening right foot pain. Started to notice increased right foot pain at the
transmetatarsal amputation site around 4 days ago although this pain has been ongoing for at least a month not responding to oxycodone and gabapentin. His wound care nurse noted worsening odor. He has been feeling increasingly weak but denies any
fever, chills, nausea or vomiting, diarrhea.
In the emergency room his blood sugar was 53 and he felt nauseous and had vomiting. Repeat blood sugar was normal.
Medical History
Past Medical History
Past Medical History: Reports Other (PAD status post angioplasty right proximal anterior tibial artery/right posterior tibial artery, right partial hallux amputation, resection of base of proximal phalanx and partial first metatarsal, osteomyelitis
status post transmetatarsal amputation, anemia of chronic disease, type 2 diabetes, cons)
Past Surgical History: Reports Other (amputations )
Social History
Tobacco: Non-smoker
Alcohol: None
Drug: None
Family History
Family History: Not pertinent
Allergies / Home Medications
Allergies reflects when Allergies were last updated in [facility].
Home Medications with original date entered in [facility]
Allergy/Medication List:
Allergies
Allergy/AdvReac Type Severity Reaction Status Date / Time
No Known Allergies Allergy Verified 02/13/25 17:36
Home Medications
rosuvastatin 20 mg tablet 20 mg PO DAILY High cholesterol 30 days #30 tabs 09/14/24
clonidine HCl 0.1 mg tablet 0.1 mg PO DAILY Blood pressure 30 days #30 tabs 09/15/24
dapagliflozin propanediol 10 mg tablet 10 mg PO DAILY Diabetes 30 days #30 tabs 09/15/24
hydrochlorothiazide 25 mg tablet 25 mg PO DAILY Fluid Retention/Swelling 10/18/24
lisinopril 40 mg tablet 40 mg PO DAILY Blood pressure 10/21/24
aspirin 81 mg chewable tablet 81 mg PO DAILY #120 tabs 10/22/24
amlodipine 10 mg tablet (Norvasc) 10 mg PO DAILY Blood Pressure 12/03/24
metformin 750 mg tablet,extended release 24 hr 750 mg PO DAILY Diabetes 12/03/24
acetazolamide 250 mg tablet 500 mg PO BID 02/13/25
atropine 1 % eye drops 1 drp LEFT EYE BID 02/13/25
brimonidine 0.2 % eye drops 1 drp LEFT EYE BID 02/13/25
clonidine 0.1 mg/24 hr weekly transdermal patch 1 patch topical QWEEK 02/13/25
collagenase clostridium histo. 250 unit/gram topical ointment (Santyl) 1 applic topical DAILY 02/13/25
dorzolamide 22.3 mg-timolol 6.8 mg/mL eye drops 1 drp LEFT EYE BID 02/13/25
ferrous fumarate 324 mg (106 mg iron) tablet 324 mg PO Q48H 02/13/25
gabapentin 300 mg capsule 600 mg PO TID 02/13/25
hydralazine 50 mg tablet 50 mg PO TID 02/13/25
oxycodone-acetaminophen 5 mg-325 mg tablet 2 tab PO Q6HPRN PRN moderate pain 02/13/25
prednisolone acetate 1 % eye drops,suspension 1 drp LEFT EYE QID 02/13/25
semaglutide 0.25 mg or 0.5 mg (2 mg/3 mL) subcutaneous pen injector (Ozempic) 0.5 mg SC WEEKLY 02/13/25
sumatriptan succinate 25 mg tablet 25 mg PO Q2HPRN PRN headache 02/13/25
Review of Systems
-
History Source: Patient
A 12 point ROS was completed and negative except as noted: Yes
Constitutional: Reports No Symptoms
EENT: Reports No Symptoms
Respiratory: Reports No Symptoms
Cardiac: Reports No Symptoms
Abdomen/GI: Reports No Symptoms
: Reports No Symptoms
Musculoskeletal: Reports No Symptoms
Skin: Reports See HPI
Neurological: Reports No Symptoms
Endocrine: Reports No Symptoms
Hematologic/Lymphatic: Reports No Symptoms
Psych: Reports No Symptoms
Physical Exam
Vital Signs
Vital Signs
Temp Pulse Resp BP Pulse Ox
97.8 F 80 13 109/60 97
02/13/25 17:35 02/13/25 19:45 02/13/25 19:45 02/13/25 19:45 02/13/25 19:45
Physical Exam
General: Well Developed, Well Nourished and No Apparent Distress
HEENT: NormoCephalic, Moist mucous membranes and Atraumatic
Respiratory: Clear
Cardiac: S1/S2 and Regular Rhythm; No Murmur or Rub
GI: Soft, Non Tender, Non Distended and Normal Bowel Sounds; No Organomegaly
Rectal: Deferred by Provider
Musculoskeletal: No Clubbing, No Cyanosis and No Edema
Skin: Other (right transmetatarsal site erythema and foul smelling discharge ); No Rash
Neuro: Nonfocal/grossly intact
Laboratory Results
-
02/13/25 17:44
02/13/25 17:44
Laboratory Results
Lactic Acid 1.2 mmol/L (0.7-2.0) 02/13/25 18:57
Total Bilirubin 0.4 mg/dl (0.2-1.3) 02/13/25 17:44
AST 20 U/L (17-59) 02/13/25 17:44
ALT 22 U/L (0-50) 02/13/25 17:44
Alkaline Phosphatase 130 U/L (38-126) H 02/13/25 17:44
Data Reviewed
-
Lab Data: Labs Reviewed by me
Old Records: Reviewed
Impression/Plan
-
IMPRESSION:
PLAN:
# Sepsis (hypotension, LINDY) secondary to likely osteomyelitis of prior transmetatarsal amputation site
# History of right transmetatarsal amputation with primary closure on 12/17
-Bilateral pulses present
- Check foot x-ray
-CRP pending
- Check blood cultures
-IV fluids
- Vancomycin/Zosyn started due to sepsis
- Podiatry consulted
- Hold amlodipine, clonidine
- Dilaudid for pain
# Acute kidney injury
- IV fluids
-hold lisinopril, HCTZ,
# Hypoglycemia
#Type 2 diabetes
-Blood sugar 53 in ER spontaneously improved reportedly
- Hold dapagliflozin, metformin
- Insulin sliding scale
History of resection of the base of the proximal phalanx and partial first metatarsal partial closure on 12/08
History of right partial hallux amputation with primary closure of the right big toe on 12/05
PAD
History of balloon angioplasty of right proximal anterior tibial artery on 10/22
History of balloon angioplasty of the distal anterior tibial artery on 10/22
History of selective cannulization of the right posterior tibial artery with limited balloon angioplasty on 12/17
- Continue aspirin
History of left AKA
Anemia of chronic disease
- Hemoglobin stable 10.5
Dry eyes
Constipation
- Continue bowel regimen
Essential hypertension
- Hold amlodipine, hydralazine, hydrochlorothiazide, lisinopril
Hyperlipidemia
- Continue statin
Obesity
Full code
DVT prophylaxis�heparin
Regular diet
[2025-02-13] MEDS: ZOSYN 50 IV (20:13)
[2025-02-13] MEDS: VANCOCIN 540 MG IV (20:30)
[2025-02-13 22:24] LABS: Glucose - Point of Care 80 mg/dl (70-99)
[2025-02-13] MEDS: HEPARIN 5000 UNITS SC (22:44)
--- NOTE | 2025-02-13 23:08 | PHA.VAN.IN ---
Assessment
- Assessment
Renal Function: SCR Appears Elevated from baseline
Maximum Temperature: 98.2F
Minimum Temperature: 97.8F
Concomitant Antimicrobials: Zosyn
Previous cultures with Staph lugdunensis, Bacteroides fragilis and caccae, Proteus, Serratia, Strep pyogenes, and Diptheroids
Plan
- Plan
Initial / Loading Dose: 2000MG
Maintenance Regimen: PRN by level
Monitoring: Random vancomycin 02/14/25 @0600
Pharmacokinetics Vancomycin I
- -
Patient Age: 59
Patient Sex: Male
Vancomycin Day #: 1
Indication: [facility]
Requesting Provider: Medardo
Pertinent Antimicrobial Allergies:
NKDA
Height / Weight:
Height 5 ft 11 in
Actual Weight 89.857 kg
Pertinent Past Medical History: PAD c/b OM and multiple amputations, odor and drainage from amputation site
- Vital Signs / Lab Results
Temp Pulse Resp BP Pulse Ox
98.2 F 83 18 149/78 100
02/13/25 22:09 02/13/25 22:09 02/13/25 22:09 02/13/25 22:09 02/13/25 22:09
Lab Results - Hematology
02/13/25
17:44
WBC 9.6
Lab Results - Chemistry
02/13/25
17:44
BUN 38 H
Creatinine 1.9 H
Albumin 3.9
02/13/25 02/13/25
18:57 23:00
Lactic Acid 1.2 Cancelled
[2025-02-14] MEDS: ZOSYN 50 IV ×4 (01:24→20:35)
[2025-02-14 03:36] VITALS: BP 112/68
[2025-02-14 06:16] LABS: Glucose - Point of Care 76 mg/dl (70-99)
[2025-02-14 07:58] VITALS: BP 134/68
--- NOTE | 2025-02-14 08:08 | PHA.VAN.FU ---
Vancomycin Assessment / Plan
- Assessment
Renal Function: Stable
WBC's are: WNL
In the past 24 hrs, patient has been: Afebrile
Concomitant Antimicrobials: pipearcillin/tazobactam
- Assessment - Therapeutic Drug Monitoring
Random Level: 19.6 - drawn ~13.5H after 2g loading dose
- Dosing Plan
Dosing by Level: Hold off on dosing today
- Monitoring Plan
Random Level: 02/15 06
- Follow Up
Pharmacy will continue to follow.
Vancomycin Follow UP
- -
Patient Age: 59
Patient Sex: Male
Vancomycin Day #: 2
Indication: Bone And Joint
Requesting Provider: Medardo
Pertinent Antimicrobial Allergies:
NKDA
Height / Weight:
Height 5 ft 11 in
Actual Weight 89.857 kg
Pertinent Past Medical History: PAD, DM 2, L. AKA
- Vital Signs / Lab Results
Temp Pulse Resp BP Pulse Ox
98.3 F 85 16 134/68 100
02/14/25 07:58 02/14/25 07:58 02/14/25 07:58 02/14/25 07:58 02/14/25 07:58
Lab Results - Hematology
02/13/25
17:44
WBC 9.6
Lab Results - Chemistry
02/13/25
17:44
BUN 38 H
Creatinine 1.9 H
Albumin 3.9
02/13/25 02/13/25
18:57 23:00
Lactic Acid 1.2 Cancelled
[2025-02-14] MEDS: NOVOLOG FLEXPEN-LOW RESISTANCE SC ×2 (08:15→12:24)
[2025-02-14] MEDS: HEPARIN 5000 UNITS SC ×2 (08:16→20:34)
[2025-02-14] MEDS: NSS 1000 IV ×2 (08:19→22:33)
--- NOTE | 2025-02-14 08:30 | CON.ID ---
Addendum entered and electronically signed by Terri Boucher MD 02/14/25 12:33:
I personally performed a history and physical exam of the patient and discussed management with the resident. I reviewed the resident's note and agree with the documented findings and plan of care HPI/CC with the following additions/corrections:
Mr Chapman is a 59 year old male with history of PAD s/p L BKA and recent right transmetatarsal amputation 12/16/24 which was considered curative for osteomyelitis. Also a history of angioplasty right proximal anterior tibial artery/right posterior
tibial artery. He reports a 4 day history of increasing foot pain at the surgical site and dehiscence. Odor is also reported. He denies fevers, chills, nausea, vomiting, diarrhea.
Since arrival here he has been afebrile, bp stable, wbc initially 9.6, hgb 10.5, plt 480, L shift was noted, cr baseline 0.9 on arrival 1.9, Na 131, lactic acid 1.2, T bili 0.4, ast 20, alt 22, alk phos 130, ESR 103, crp 151, foot Xray compared to
post operative foot Xray from 12/20 and showing new radiolucency and probable osteolysis distal 1st through 5th metatarsal shafts suggeting acute osteomyelitis. Patient started on vancomycin and zosyn. Podiatry is also consulted
Physical Exam
General: Well Developed, Well Nourished and No Apparent Distress
Respiratory: Clear to auscultation bilaterally
Cardiac: S1/S2 and Regular Rhythm; No Murmur or Rub
GI: Soft, Non Tender, Non Distended and Normal Bowel Sounds; No Organomegaly
Musculoskeletal: No Cyanosis and No Edema
Skin: right transmetatarsal site dehisced with probe about 1 cm deep across the wound, no granulation tissue, surrounding erythema and foul smelling discharge
A&P
Osteomyelitis 1st-5th metatarsal shafts
LINDY
- blood cultures x2 in progress, MRSA screen in progress
- wound culture
- would consider BKA as curative therapy - vascular surgery consultation
- continue vancomycin and zosyn at this time
- follow clinically
AW
Original Note:
Consultation
-
Date/Time Consultation Requested: 02/13/2025 at 2200 hrs.
Date/Time Consultation Performed: 02/14/2025 at 9 AM
Requesting Provider: Harjit Batres
Performing Provider: Herbert Peres
Chief Complaint / Past History
Chief Complaint
Right foot skin problem with pain
History of Present Illness
Patient is a 59-year-old male with a past medical history of [id number] diabetes mellitus, peripheral vascular disease, hypertension, status post left below the knee amputation, and recent right transmetatarsal amputation due to
osteomyelitis conducted by Dr. Heath on 12/16/24 who presented to the emergency department with worsening right foot pain.� Patient believed that he was recovering well from his transmetatarsal amputation but unfortunately started to notice an
increased right foot pain at the transmetatarsal amputation site 4 days prior to his presentation.� His wound nurse also noted a worsening odor coinciding with the pain.� Patient presented to the emergency department when the pain became unbearable
and the patient was convinced that something was brewing.� He had been using gabapentin and oxycodone to treat his increasing pain for the past month but these medications are not helping in managing his pain symptoms on presentation to the
emergency department.� Patient stated that he had been increasingly weak over the past week but denied any fevers, chills, diarrhea, cough, sore throat, shortness of breath, chest tightness, or chest pain.� Patient had nausea and vomiting in the
emergency department and received Zofran.� CBC did not show leukocytosis but had a neutrophil predominance of 76.3.� The patient was hyponatremic with a sodium of 131, bicarb of 18, creatinine of 1.9, eGFR of 40.38, alk phos of 130, and CRP of
151.20. �Two blood cultures were drawn. �An x-ray of the right foot was conducted showing new radiolucency and probable osteolysis in the distal heads of the 1st through 5th metatarsal shafts suggesting acute osteomyelitis given the interval change
in appearance since 12/20/2024 in the presence of an overlying wound.� The patient was started on empiric vancomycin IV and Zosyn IV.� Podiatry and infectious diseases were consulted and the patient was admitted for osteomyelitis of the metatarsals
and acute kidney injury.
Past History
Additional Past Medical History:
Nzj-[id number] type 2 diabetes mellitus
Essential hypertension
Anemia of chronic disease
Hyperlipidemia
Constipation
Obesity
Additional Past Surgical History:
Pelvic fracture in 2015
Left BKA on 06/2024
Status post angioplasty right proximal anterior tibial artery/right posterior tibial artery
Right partial hallux amputation
Allergy History:
No Known Allergies Allergy (Verified 02/13/25 17:36)
Medications Reviewed: Yes
Current Antibiotics:
Allergies
Allergy/AdvReac Type Severity Reaction Status Date / Time
No Known Allergies Allergy Verified 02/13/25 17:36
Home Medications
rosuvastatin 20 mg tablet 20 mg PO DAILY High cholesterol 30 days #30 tabs 09/14/24
clonidine HCl 0.1 mg tablet 0.1 mg PO DAILY Blood pressure 30 days #30 tabs 09/15/24
dapagliflozin propanediol 10 mg tablet 10 mg PO DAILY Diabetes 30 days #30 tabs 09/15/24
hydrochlorothiazide 25 mg tablet 25 mg PO DAILY Fluid Retention/Swelling 10/18/24
lisinopril 40 mg tablet 40 mg PO DAILY Blood pressure 10/21/24
amlodipine 10 mg tablet (Norvasc) 10 mg PO DAILY Blood Pressure 12/03/24
metformin 750 mg tablet,extended release 24 hr 750 mg PO DAILY Diabetes 12/03/24
acetazolamide 250 mg tablet 500 mg PO BID Fluid Retention/Swelling 02/13/25
atropine 1 % eye drops 1 drp LEFT EYE BID Eye Condition 02/13/25
brimonidine 0.2 % eye drops 1 drp LEFT EYE BID Eye Condition 02/13/25
clonidine 0.1 mg/24 hr weekly transdermal patch 1 patch topical QWEEK Heart Disease/Condition 02/13/25
collagenase clostridium histo. 250 unit/gram topical ointment (Santyl) 1 applic topical DAILY Autoimmune Disorder 02/13/25
dorzolamide 22.3 mg-timolol 6.8 mg/mL eye drops 1 drp LEFT EYE BID Eye Condition 02/13/25
ferrous fumarate 324 mg (106 mg iron) tablet 324 mg PO Q48H Supplement 02/13/25
gabapentin 300 mg capsule 600 mg PO TID Neurological Condition 02/13/25
hydralazine 50 mg tablet 50 mg PO TID Blood Pressure 02/13/25
oxycodone-acetaminophen 5 mg-325 mg tablet 2 tab PO Q6HPRN PRN moderate pain 02/13/25
prednisolone acetate 1 % eye drops,suspension 1 drp LEFT EYE QID Eye Condition 02/13/25
semaglutide 0.25 mg or 0.5 mg (2 mg/3 mL) subcutaneous pen injector (Ozempic) 0.5 mg SC WEEKLY Diabetes 02/13/25
sumatriptan succinate 25 mg tablet 25 mg PO Q2HPRN PRN headache 02/13/25
aspirin 81 mg chewable tablet 81 mg PO DAILY Heart Disease/Condition 02/14/25
Social History
Tobacco: Non-Smoker
Alcohol: None
Drug: None
Personal:
Living: With Family
Employment: Retired
Family History
Family History: Not Pertinent
Review of Systems
Review of Systems
General: Other (Fatigue, right foot pain)
HEENT: Negative Stiff Neck
Cardiovascular: Negative Chest Pain
Respiratory: Negative Dyspnea, Cough, Cyanosis or Hemoptysis
Gasteroenterology: Negative Weight Loss
Genital / Urological: Negative Dysuria or Hematuria
Endocrine: Negative Weight Change
Musculoskeletal: Joint Pain (Right foot) and Joint Swelling (Right foot)
Skin / Hair / Nails: Lesions (Right foot lesion along amputation site with foul odor)
Vital Signs
Temp Pulse Resp BP Pulse Ox
98.3 F 85 16 134/68 100
02/14/25 07:58 02/14/25 07:58 02/14/25 07:58 02/14/25 07:58 02/14/25 11:22
Physical Exam
Physical Exam
Constitutional: Well Developed, Acutely Ill, Non-toxic, Obese and Other; Negative Comfortable (Uncomfortable)
Head: Normocephalic
Eyes: Pupils Equal
Pharynx: Erythema
Cardiovascular: Regular Rate and S1/S2; Negative Murmur or Rub
Pulmonary: Clear, Symmetric and Non Labored; Negative Wheezes, Rales, Rhonchi or Coarse
Gastrointestinal: Soft, Non Tender, Non Distended and Normal Bowel Sounds
Extremities: Other (Left below the knee amputation, right transmetatarsal amputation site with dehiscence and purulence and foul odor)
Skin: Warm, Dry and Other (Left below the knee amputation, right transmetatarsal amputation site with dehiscence and purulence and foul odor. Pedal portion of the dehiscence is paler with more purulence noted underneath.); Negative Rash
Wound: Other ( right transmetatarsal amputation site with dehiscence and purulence and foul odor. Pedal portion of the dehiscence is paler with more purulence noted underneath. Probe goes to 1 cm deep and wound.)
Neurological: Awake, Alert, Oriented and AO x 3
Psychological: Calm
Lab / Diagnostic Study Results
02/14/25 10:05
Abs Immat Gran (auto) 0.1 10^3/uL (0-0.05) H 02/14/25 10:05
Absolute Neuts (auto) 7.6 10^3/uL (1.4-6.5) H 02/14/25 10:05
Absolute Lymphs (auto) 1.2 10^3/uL (1.2-3.4) 02/14/25 10:05
Absolute Monos (auto) 0.8 10^3/uL (0.1-0.6) H 02/14/25 10:05
Absolute Basos (auto) 0.1 10^3/uL (0-0.2) 02/14/25 10:05
Immature Gran % 0.5 % (0-0.5) 02/14/25 10:05
Neutrophils % 77.2 % (42.2-75.2) H 02/14/25 10:05
Lymphocytes % 12.6 % (20.5-51.1) L 02/14/25 10:05
Monocytes % 7.6 % (1.7-9.3) 02/14/25 10:05
Eosinophils % 1.6 % (0-6) 02/14/25 10:05
Basophils % 0.5 % (0-2) 02/14/25 10:05
ESR 103 mm/hour (0-20) H 02/13/25 17:44
Lactic Acid Cancelled 02/13/25 23:00
C-Reactive Protein 151.20 mg/L (0.0-10.00) H 02/13/25 17:44
Microbiology Results
Micro:
02/13/25 22:20 MRSA Screen - Pending
Nose
02/13/25 18:57 Blood Culture - Pending
Blood/Venous
02/13/25 18:57 Blood Culture - Pending
Blood/Venous
Assessment / Plan
- Osteomyelitis of right 1st through 5th metatarsal shafts:
- Osteomyelitis of prior right transmetatarsal amputation site:
- Acute kidney injury:
Prior wound culture of right foot positive for staph lugdunensis and bacteroides fragilis on 12/05/2024 and was treated with Zosyn and vancomycin and discharged with a 7-day course
Patient presented with a creatinine of 1.9 which is markedly elevated from his baseline of 0.9
Right foot x-ray conducted on 02/13/2025 showed New radiolucency and probable osteolysis in the distal ends of the 1st through 5th metatarsal shafts (most pronounced in the distal 1st metatarsal) suggesting ACUTE OSTEOMYELITIS given the interval
change in appearance since 12/20/2024 and the presence of an overlying wound.
Blood cultures x 2 pending
Wound cultures x 2 pending
Random vancomycin 19.6
Continue Zosyn and vancomycin -adjust based on sensitivities
[2025-02-14 10:51] LABS: Hematocrit 25.6 % (39.0-52.0); Hemoglobin 8.0 g/dL (13.0-18.0); Mean Corp Hgb Conc. 31.3 g/dL (33.0-37.0); Mean Corpuscular Volume 89.5 fL (80.0-94.0); Nucleated Red Blood Cells % 0 % (-); Platelet Count 489 10^3/uL (130-400); Red Cell Dist. Width 16.2 % (11.5-14.5)
[2025-02-14 11:03] LABS: ALT (SGPT) 25 U/L (0-50); AST (SGOT) 22 U/L (17-59); Albumin 3.5 g/dl (3.5-5.0); Alkaline Phosphatase 120 U/L (38-126); Blood Urea Nitrogen 33 mg/dl (9-20); Calcium 9.2 mg/dl (8.4-10.2); Carbon Dioxide 20 mmol/L (22-30); Chloride 99 mmol/L (98-107); Estimated Creatinine Clearance 45 ml/min; Glucose 78 mg/dl (70-99); Potassium 4.2 mmol/L (3.5-5.1); Sodium 128 mmol/L (135-145); Total Protein 6.5 g/dl (6.3-8.2); eGFR 40.38
[2025-02-14 11:37] LABS: Glycohemoglobin (HgbA1c) 5.7 % (4.0-5.9)
[2025-02-14 11:57] LABS: Hematocrit 30.8 % (39.0-52.0); Hemoglobin 9.7 g/dL (13.0-18.0)
--- NOTE | 2025-02-14 11:57 | W.CS.POD ---
Consult Summary - Podiatry
-
59-year-old male known to me for the last 3 months, had a right big toe gangrene and had right hallux amputation in 2024, which failed healing and that led to partial first ray amputation in 12/05/24 and eventually led to transmetatarsal
amputation 2024. Patient was in rehab and was discharged home with the [facility] nurses. He has been staying off of his right foot. His left BKA site healed very well.
His Right TMA site progressively gotten necrotic which is dry in nature now with complete wound dehiscence. He denies any fever or chills he is in no acute distress. Right foot wound with serous drainage, no edema to the right foot.
He does have a severe pain and has right foot controlled with pain meds.
Exam: Right foot TMA site with dry necrotic edges, some serous drainage noted, no foul odor
Wound probing deep to the bone, complete wound dehiscence noted at TMA site.
White blood cell count within normal limits
Right foot x-ray shows osteolysis at the edges of the resected surgical metatarsal sites 1 -4 and possible osteomyelitis at 1st metatarsal resected site
Assessment and plan: Patient evaluated at bedside
Since patient had multiple limb salvage attempts/ revisions, given dry gangrene and PAD, with possible osteomyelitis changes at TMA site, further limb salvage attempts may not be successful.
Will wait for vascular surgery input/recommendations.
D/W Hosp service .
D/W patient about non healing, bone infection and wound dehisciince, No gaurentees given to save his limb, PAtient does understand his situation.
Podiatry will follow
[2025-02-14 12:18] VITALS: BP 115/62
[2025-02-14 12:18] LABS: Glucose - Point of Care 157 mg/dl (70-99)
--- NOTE | 2025-02-14 13:20 | CON.VAS ---
Consultation
Consultation Request
Date/Time Consultation Performed: 02/14/2025 1300
Requesting Provider: Podiatry
Performing Provider: TARIK Joseph for Aníbal De La Garza M.D.
Reason for Consultation: Nonhealing right lower extremity TMA site
Medical History
-
Chief Complaint: Increased pain at right lower extremity TMA site
History of Present Illness:
This is a 59-year-old male with significant past medical history for diabetes, hypertension, hyperlipidemia, and peripheral arterial disease who presents to [place] ED on 02/13/2025 for increased pain at nonhealing and dehisced right TMA site. Of
note patient is known to our service for management of peripheral arterial disease, please see vascular surgical history below. Patient does endorse worsening pain at right TMA site denies accompanying nausea, fever, chills, and vomiting. Picture
of right TMA site below. Currently patient is resting comfortably in bed with no complaints. Of note patient is also status post left below the knee amputation. Left below the knee amputation site healed well following debridement and wound VAC
placement. Vascular surgery has been consulted given nonhealing status of right lower extremity TMA site.
Vascular surgical history:
07/01/2024- Left lower extremity arteriogram with selective catheterization of left superficial femoral artery via right common femoral artery puncture. Aníbal De La Garza M.D.
09/01/2024- Duplex assisted attempted cannulation of left foot lateral plantar vein. Duplex assisted cannulation of left posterior tibial vein. Left ankle and foot venography. Aníbal De La Garza M.D.
09/03/2024- Left below the knee amputation Aníbal De La Garza M.D.
10/21/2024- Right lower extremity arteriogram with third order vessel catheterization of right dorsalis pedis artery via left common femoral artery puncture. Balloon angioplasty of right proximal anterior tibial artery severe focal stenosis with 3 mm
angioplasty balloon. Balloon angioplasty of the distal BRADLEY artery with 1.5 mm angioplasty balloon. Aníbal De La Garza M.D.
12/08/2024- Duplex assisted cannulation of left common femoral artery. Aortogram and pelvic angiogram. Right lower extremity arteriogram. Selective cannulation of right posterior tibial artery with limited balloon angioplasty with 2 mm angioplasty
balloon. Left femoral angiogram and Pro-glide percutaneous suture closure. Excisional debridement left below the knee amputation stump skin and subcutaneous tissue approximately 3.5 cm x 3 cm, depth less than 1 cm.-Aníbal De La Garza M.D.
Right foot total metatarsal amputation site
Left below the knee healed amputation site
Allergies / Home Medications
Allergy/AdvReac Type Severity Reaction Status Date / Time
No Known Allergies Allergy Verified 02/13/25 17:36
�Medication �Instructions �Recorded �Confirmed �Type
rosuvastatin 20 mg tablet 20 mg PO DAILY High cholesterol 30 09/14/24 12/03/24 Rx
days #30 tabs
clonidine HCl 0.1 mg tablet 0.1 mg PO DAILY Blood pressure 30 09/15/24 12/03/24 Rx
days #30 tabs
dapagliflozin propanediol 10 mg 10 mg PO DAILY Diabetes 30 days 09/15/24 12/03/24 Rx
tablet #30 tabs
hydrochlorothiazide 25 mg tablet 25 mg PO DAILY Fluid 10/18/24 12/03/24 History
Retention/Swelling
lisinopril 40 mg tablet 40 mg PO DAILY Blood pressure 10/21/24 12/03/24 History
amlodipine 10 mg tablet (Norvasc) 10 mg PO DAILY Blood Pressure 12/03/24 12/03/24 History
metformin 750 mg tablet,extended 750 mg PO DAILY Diabetes 12/03/24 12/03/24 History
release 24 hr
acetazolamide 250 mg tablet 500 mg PO BID Fluid 02/13/25 History
Retention/Swelling
atropine 1 % eye drops 1 drp LEFT EYE BID Eye Condition 02/13/25 History
brimonidine 0.2 % eye drops 1 drp LEFT EYE BID Eye Condition 02/13/25 History
clonidine 0.1 mg/24 hr weekly 1 patch topical QWEEK Heart 02/13/25 History
transdermal patch Disease/Condition
collagenase clostridium histo. 250 1 applic topical DAILY Autoimmune 02/13/25 History
unit/gram topical ointment (Santyl) Disorder
dorzolamide 22.3 mg-timolol 6.8 1 drp LEFT EYE BID Eye Condition 02/13/25 History
mg/mL eye drops
ferrous fumarate 324 mg (106 mg 324 mg PO Q48H Supplement 02/13/25 History
iron) tablet
gabapentin 300 mg capsule 600 mg PO TID Neurological 02/13/25 History
Condition
hydralazine 50 mg tablet 50 mg PO TID Blood Pressure 02/13/25 History
oxycodone-acetaminophen 5 mg-325 2 tab PO Q6HPRN PRN moderate pain 02/13/25 History
mg tablet
prednisolone acetate 1 % eye 1 drp LEFT EYE QID Eye Condition 02/13/25 History
drops,suspension
semaglutide 0.25 mg or 0.5 mg (2 0.5 mg SC WEEKLY Diabetes 02/13/25 History
mg/3 mL) subcutaneous pen injector
(Ozempic)
sumatriptan succinate 25 mg tablet 25 mg PO Q2HPRN PRN headache 02/13/25 History
aspirin 81 mg chewable tablet 81 mg PO DAILY Heart 02/14/25 History
Disease/Condition
Review of Systems
-
History Source: Patient
Constitutional: Reports No Symptoms
EENT: Reports No Symptoms
Respiratory: Reports No Symptoms
Cardiac: Reports No Symptoms
Abdomen/GI: Reports No Symptoms
: Reports No Symptoms
Musculoskeletal: Reports No Symptoms
Skin: Reports Other (Increased pain at right lower extremity nonhealing TMA foot site)
Neurological: Reports No Symptoms
Endocrine: Reports No Symptoms
Physical Exam
Vital Signs
Temp Pulse Resp BP Pulse Ox
98.9 F 85 16 115/62 100
02/14/25 12:18 02/14/25 12:18 02/14/25 12:18 02/14/25 12:18 02/14/25 12:18
Lab Results
02/14/25 11:38
02/14/25 10:05
Physical Exam
General: No Apparent Distress
HEENT: Normocephalic, Anicteric and Atraumatic
Respiratory: Non Labored Respirations
Cardiac: Negative JVD
GI: Non Tender
Musculoskeletal: No Edema and Other (Nonpalpable right foot distal pulses)
Skin: Other (Right foot TMA dehisced with dry gangrene, non-malodorous, please see photo in HPI)
Neuro: AO x 3
Psych: Calm
Assessment / Plan
-
Assessment: 59-year-old male with peripheral arterial disease status post left BKA and with continued nonhealing right TMA site
Plan:
Given patient's advanced peripheral arterial disease high concern for limb salvage, will obtain pre limflow ultrasound of right lower extremity to determine if patient is a candidate for TADV
Pending results of ultrasound can then provide further vascular surgical recommendation. Preston defer to attending for official surgical plan.
Plan reviewed with attending Dr. Aníbal De La Garza M.D.
--- NOTE | 2025-02-14 13:55 | W.PN.HOSP.TC ---
Addendum entered and electronically signed by Isabelle Power MD 02/14/25 19:09:
I saw and evaluated the patient independently. I reviewed and discussed the resident�s note and agree with findings and plan as documented by Dr. Owens.
GENERAL: well developed, well nourished, male in no apparent distress
HEENT:NC/AT- no O2 requirements
HEART: regular rate and rhythm, +S1, +S2
LUNGS : clear to auscultation bilaterally
ABDOM: soft, nontender, nondistended, + bowel sounds
EXT: no cyanosis, clubbing, or edema--left LE BKA and right TMA with dehiscence of the wound and dry gangrene
NEUROLOGIC: nonfocal
Acute osteomyelitis secondary to poor transmetatarsal amputation site healing- History of right transmetatarsal amputation with primary closure on 12/17--apprec podiatry, apprec vascular--prior to OR looking for need for TADV from vascular to help
wound healing--cont pain meds--await ID--cont vanco/zosyn for now--blood cultures positive for gm neg bacilli await identification--ESR 103, CRP 151 both elevated
Pre renal Acute kidney injury--creatinine is still elevated at 1.9 from baseline 1.0- Continue IV fluids- hold lisinopril, HCTZ, amlodipine, clonidine
Type 2 diabetes mellitus--well controlled--holding dapagliflozin, metformin due to elevated creatinine of 1.9- Presently patient should continue on insulin sliding scale
PAD
History of balloon angioplasty of right proximal anterior tibial artery on 10/22
History of balloon angioplasty of the distal anterior tibial artery on 10/22
History of selective cannulization of the right posterior tibial artery with limited balloon angioplasty on 12/17
- Continue aspirin
Anemia of chronic disease-His hemoglobin normally sits around 7.5-9-- Will transfuse 1 unit of blood if hemoglobin is less than 7-- No symptoms of an acute bleed such as tachycardia, shortness of breath, fatigue, pallor, cool skin.
Essential hypertension- Hold amlodipine, hydralazine, hydrochlorothiazide, lisinopril
Hyperlipidemia--confirm meds
Obesity--affects all aspects of care
code status--Full code
DVT proph--�heparin
Addendum entered and electronically signed by Jose Maria Owens MD, Resident 02/14/25 16:00:
called patients pharmacy and did medication reconciliation
Hyperlipidemia
- will hold rosuvastatin due to elevated creatinine level
Original Note:
Today's Communication/Plan
-
- awaiting results of ultrasound, awaiting blood culture
Assessment / Plan
Assessment / Plan
Acute osteomyelitis secondary to poor transmetatarsal amputation site healing
- History of right transmetatarsal amputation with primary closure on 12/17
- Physical examination shows complete right metatarsal amputation with complete wound dehiscence, purulent drainage, and dry necrotic edges
- Foot xray on 02/13/25 shows acute osteomyelitis of the 1st through 5th metatarsal shafts most pronounced in 1st shaft
- Continue empiric Vancomycin and Zosyn and await blood cultures before we narrow down based on results.
- Vascular surgery consulted and are awaiting prelim flow u/s of the right lower extremity to see if patient is a candidate for TADV.
- ESR is 103 and C-reactive protein is 151 which are helpful for long-term monitoring
- Consulted infectious disease
- Podiatry following
- Tylenol for mild pain, IV Dilaudid 0.25 for moderate pain, and Dilaudid 0.5 q4h for severe pain
Pre renal Acute kidney injury:
- Today his creatinine is still elevated at 1.9 from baseline 1.0
- Continue IV fluids
- hold lisinopril, HCTZ, amlodipine, clonidine
Type 2 diabetes mellitus:
- Today his glucose is 78 well-controlled
- Hold dapagliflozin, metformin due to elevated creatinine of 1.9
- Presently patient should continue on insulin sliding scale
PAD
History of balloon angioplasty of right proximal anterior tibial artery on 10/22
History of balloon angioplasty of the distal anterior tibial artery on 10/22
History of selective cannulization of the right posterior tibial artery with limited balloon angioplasty on 12/17
- Continue aspirin
Anemia of chronic disease
-His hemoglobin normally sits around 7.5-9
- Hemoglobin initially was 8 today, on recheck was 9.7. Will transfuse 1 unit of blood if hemoglobin is less than 7.
- Ordered a type and screen
- No symptoms of an acute bleed such as tachycardia, shortness of breath, fatigue, pallor, cool skin.
Essential hypertension
- Hold amlodipine, hydralazine, hydrochlorothiazide, lisinopril
Hyperlipidemia
- Have to confirm medication list first
Obesity
Full code
DVT prophylaxis�heparin
Regular diet
Anticipated Discharge: 24 - 48 hours
Subjective/Interval History
-
Date of Service: February 14, 2025
No overnight events
Patient's only complaint is burning like [id number] right lower extremity pain along the vicinity of the entire foot. No headache, fever, chills, nausea, diarrhea, vomiting, abdominal pain, altered mental status, diaphoresis.
Objective Data
-
Labs:
Laboratory Results
02/14/25 02/14/25
10:05 11:38
WBC 9.8
Hgb 8.0 L D 9.7 L D
Hct 25.6 L 30.8 L
Plt Count 489 H
Sodium 128 L
Potassium 4.2
Chloride 99
Carbon Dioxide 20 L
BUN 33 H
Creatinine 1.9 H
Glucose 78
Calcium 9.2
Total Bilirubin 0.6
AST 22
ALT 25
Alkaline Phosphatase 120
Vital Signs:
Vital Signs
Temp Pulse Resp BP Pulse Ox
98.9 F 85 16 115/62 100
02/14/25 12:18 02/14/25 12:18 02/14/25 12:18 02/14/25 12:18 02/14/25 12:18
I&O
02/13/25 02/14/25 02/15/25
05:59 06:59 06:59
Intake Total 480 / 480
Output Total 350 / 350 600 / 600
Balance 130 / 130 -600 / -600
Review of Systems
-
History Source: Patient
All other systems: Reviewed and negative
Physical Exam
-
General: Well Developed
Respiratory: Clear to Auscultation
Cardiac: Regular Rhythm and S1/S2
GI: Soft, Nontender, Nondistended and Normal Bowel Sounds
Musculoskeletal: Other (Left lower extremity BKA. Amputation of all digits of right foot. Right foot TMA site with dry necrotic edges, serous drainage , no foul odor, wound dehiscence at the TMA site.)
Neuro: AO x 3
Psych: Calm
Data Reviewed
-
Labs: Labs Reviewed by me and Discussed with Physician
[2025-02-14 15:52] VITALS: BP 122/60
[2025-02-14] MEDS: LOW STRENGTH ASPIRIN 81 MG PO (17:02)
[2025-02-14 17:06] LABS: Glucose - Point of Care 195 mg/dl (70-99)
--- NOTE | 2025-02-14 17:21 | CM ---
Patient seen on [facility] with physicians. Patient recently discharged from [facility] and currently resides in a second floor apartment with mother. Elevator access available. The patient has a rolling walker, wheelchair, and shower chair. The
patient has had VN in the past, but can not recall name of agency. The patient confirmed his [facility] of choice [facility], and his physician has been Dr. Dickson previous to his SNF stay at [facility]. Patient indicated that he
did not want to return there at this time. CM unable to confirm that patient currently had VN supports at home. CM continues to be available to patient/family and is monitoring medical plan for needs at discharge.
Plan: Discharge plans will depend on the patient's progress. Patient may benefit from PT/OT assessment to clarify discharge level of care needs.
[2025-02-14] MEDS: NOVOLOG FLEXPEN-LOW RESISTANCE 1 UNITS SC (17:34)
[2025-02-14 19:21] VITALS: BP 115/63
[2025-02-14] MEDS: DILAUDID 0.5 MG IV (21:41)
[2025-02-14 22:47] LABS: Glucose - Point of Care 133 mg/dl (70-99)
[2025-02-14 23:41] VITALS: BP 129/72
[2025-02-15] MEDS: ZOSYN 50 IV ×4 (01:06→20:05)
[2025-02-15 03:49] VITALS: BP 127/66
[2025-02-15] MEDS: DILAUDID 0.5 MG IV (06:04)
[2025-02-15 06:55] LABS: Hematocrit 28.4 % (39.0-52.0); Hemoglobin 9.1 g/dL (13.0-18.0); Mean Corp Hgb Conc. 32.0 g/dL (33.0-37.0); Mean Corpuscular Volume 90.7 fL (80.0-94.0); Nucleated Red Blood Cells % 0 % (-); Platelet Count 463 10^3/uL (130-400); Red Cell Dist. Width 16.3 % (11.5-14.5)
[2025-02-15 07:00] VITALS: BP 138/74
[2025-02-15 07:04] LABS: ALT (SGPT) 37 U/L (0-50); AST (SGOT) 26 U/L (17-59); Albumin 3.4 g/dl (3.5-5.0); Alkaline Phosphatase 117 U/L (38-126); Blood Urea Nitrogen 27 mg/dl (9-20); Calcium 9.3 mg/dl (8.4-10.2); Carbon Dioxide 22 mmol/L (22-30); Chloride 102 mmol/L (98-107); Estimated Creatinine Clearance 45 ml/min; Glucose 92 mg/dl (70-99); Potassium 4.2 mmol/L (3.5-5.1); Sodium 135 mmol/L (135-145); Total Protein 6.4 g/dl (6.3-8.2); eGFR 40.38
[2025-02-15 07:21] LABS: C-Reactive Protein 125.00 mg/L (0.0-10.00)
[2025-02-15] MEDS: LOW STRENGTH ASPIRIN 81 MG PO (07:24)
[2025-02-15] MEDS: HEPARIN 5000 UNITS SC ×2 (07:25→20:04)
[2025-02-15 08:35] LABS: Glucose - Point of Care 79 mg/dl (70-99)
[2025-02-15] MEDS: NOVOLOG FLEXPEN-LOW RESISTANCE SC ×3 (08:47→17:07)
[2025-02-15] MEDS: APRESOLINE 50 MG PO (09:07)
[2025-02-15] MEDS: NEURONTIN 300 MG PO ×3 (09:08→21:28)
[2025-02-15] MEDS: CRESTOR 20 MG PO (09:08)
[2025-02-15] MEDS: NORVASC 10 MG PO (09:08)
[2025-02-15] MEDS: TIMOPTIC 0.5% OPHTHALMIC SOLUTION 1 DROP LEFT EYE ×2 (09:09→20:07)
[2025-02-15] MEDS: TRUSOPT 2% OPHTHALMIC SOLUTION 1 DROP LEFT EYE ×2 (09:10→20:06)
[2025-02-15] MEDS: PRED FORTE 1% EYE DROPS 1 DROP LEFT EYE ×4 (09:11→21:29)
[2025-02-15] MEDS: ATROPINE SULFATE 1% DROPS 1 DROP LEFT EYE ×2 (09:11→20:06)
[2025-02-15] MEDS: ALPHAGAN 0.2% EYE DROPS 1 DROP LEFT EYE ×2 (09:12→20:06)
[2025-02-15] MEDS: CATAPRES 0.1 MG PO (09:17)
[2025-02-15] MEDS: NSS 1000 IV ×2 (09:21→21:26)
--- NOTE | 2025-02-15 09:49 | W.PN.ID1 ---
Date of Service
Date of Service: February 15, 2025
Today's Communication
continue vancomycin and zosyn
Assessment / Plan
A&P
Bacteroides bacteremia
Osteomyelitis 1st-5th metatarsal shafts
History of TMA - surgical site dehisced
LINDY
- blood cultures x2 in progress Bacteroides
- MRSA screen negative
- wound culture in progress
- would consider BKA as curative therapy - vascular surgery consultation
- continue vancomycin and zosyn at this time - pending wound culture
- follow clinically
AW
Chief Complaint
-: Other (surgical site infection)
Subjective / Review of Systems
afebrile
bp stable
no events overnight
Vital Signs / Physical Exam
Vital Signs
Vital Signs
Temp Pulse Resp BP Pulse Ox
97.9 F 79 20 138/74 99
02/15/25 07:00 02/15/25 09:07 02/15/25 07:00 02/15/25 09:07 02/15/25 07:55
Physical Exam
Constitutional: No Acute Distress
Cardiovascular: Regular Rate and S1/S2; Negative Murmur or Rub
Pulmonary: Clear and Symmetric; Negative Wheezes or Rales
Gastrointestinal: Soft, Non Tender, Non Distended and Normal Bowel Sounds
Skin: Warm and Dry; Negative Rash or Jaundice
Wound: Other (deferred dressing take down today)
Objective Data
Lab Data
Lab Results
02/15/25 05:59
02/15/25 05:58
ESR 113 mm/hour (0-20) H 02/15/25 05:59
Estimated Creat Clear 45 ml/min 02/15/25 05:58
Lactic Acid Cancelled 02/13/25 23:00
Total Bilirubin 0.4 mg/dl (0.2-1.3) 02/15/25 05:58
AST 26 U/L (17-59) 02/15/25 05:58
ALT 37 U/L (0-50) 02/15/25 05:58
Alkaline Phosphatase 117 U/L (38-126) 02/15/25 05:58
C-Reactive Protein 125.00 mg/L (0.0-10.00) H 02/15/25 05:58
Most recent labs reviewed.
Micro Results:
02/14/25 15:19 Wound Culture - Pending
Foot - Right Gram Stain - Preliminary
02/13/25 18:57 Blood Culture - Preliminary
Blood/Venous Bacteroides fragilis
Gram Stain - Preliminary
02/13/25 18:57 Blood Culture - Preliminary
Blood/Venous Positive culture in progress
Gram Stain - Preliminary
02/13/25 22:20 MRSA Screen - Final
Nose No Methicillin Resistant Staphylococcus aureus isolated.
--- NOTE | 2025-02-15 10:44 | PHA.VAN.FU ---
Vancomycin Assessment / Plan
- Assessment
Renal Function: Stable
WBC's are: WNL
In the past 24 hrs, patient has been: Afebrile
Concomitant Antimicrobials: piperacillin/tazobactam
- Assessment - Therapeutic Drug Monitoring
Random Level: 14.7 - drawn ~20H after previous level of 19.6
Calculated ke: 0.0145
Calculated half life (H): 47.9
- Dosing Plan
Dosing by Level: Re-dose today (Vanc 1000mg)
- Monitoring Plan
No level(s) ordered at this time: consider level for 02/17 based on half-life
- Follow Up
Pharmacy will continue to follow.
Vancomycin Follow UP
- -
Patient Age: 59
Patient Sex: Male
Vancomycin Day #: 3
Indication: Bone And Joint
Requesting Provider: Medardo
Pertinent Antimicrobial Allergies:
NKDA
Height / Weight:
Height 5 ft 11 in
Actual Weight 89.857 kg
Pertinent Past Medical History: PAD, DM 2, L. AKA
- Vital Signs / Lab Results
Temp Pulse Resp BP Pulse Ox
97.9 F 79 20 138/74 99
02/15/25 07:00 02/15/25 09:07 02/15/25 07:00 02/15/25 09:07 02/15/25 07:55
Lab Results - Hematology
02/13/25 02/14/25 02/15/25
17:44 10:05 05:59
WBC 9.6 9.8 8.1
Lab Results - Chemistry
02/13/25 02/14/25 02/15/25
17:44 10:05 05:58
BUN 38 H 33 H 27 H
Creatinine 1.9 H 1.9 H 1.9 H
Estimated Creat Clear 45 45
Albumin 3.9 3.5 3.4 L
02/13/25 02/13/25
18:57 23:00
Lactic Acid 1.2 Cancelled
Microbiology Results
02/14/25 15:19 Gram Stain - Preliminary
Foot - Right
02/13/25 18:57 Blood Culture - Preliminary
Blood/Venous Bacteroides fragilis
Gram Stain - Preliminary
02/13/25 18:57 Blood Culture - Preliminary
Blood/Venous Positive culture in progress
Gram Stain - Preliminary
02/13/25 22:20 MRSA Screen - Final
Nose No Methicillin Resistant Staphylococcus aureus isolated.
Therapeutic Drug Monitoring
Random Vancomycin 14.7 ug/ml 02/15/25 05:58
[2025-02-15 11:00] VITALS: BP 108/61
[2025-02-15 12:42] LABS: Glucose - Point of Care 101 mg/dl (70-99)
[2025-02-15] MEDS: VANCOCIN 200 IV (12:57)
--- NOTE | 2025-02-15 13:14 | W.PN.HOSP.TC ---
Addendum entered and electronically signed by Isabelle Power MD 02/15/25 13:53:
I saw and evaluated the patient independently. I reviewed and discussed the resident�s note and agree with findings and plan as documented by Dr. Owens.
GENERAL: well developed, well nourished, male in no apparent distress
HEENT:NC/AT- no O2 requirements
HEART: regular rate and rhythm, +S1, +S2
LUNGS : clear to auscultation bilaterally
ABDOM: soft, nontender, nondistended, + bowel sounds
EXT: no cyanosis, clubbing, or edema--left LE BKA and right TMA with dehiscence of the wound and dry gangrene
NEUROLOGIC: nonfocal
Acute osteomyelitis with Bacteroides fragilis bacteremia secondary to poor transmetatarsal amputation site healing---repeat blood cultures to ensure clearance--History of right transmetatarsal amputation with primary closure on 12/17--apprec podiatry,
apprec vascular--prior to OR looking for need for TADV from vascular to help wound healing, US pending, await vascular input--cont pain meds---cont vanco/zosyn for now---ESR, CRP both elevated--will defer to podiatry and vascular but
definitive/curative treatment would likely be amputation either further TMA or BKA.....
Pre renal Acute kidney injury--creatinine is still elevated at 1.9 from baseline 1.0- Continue IV fluids- hold lisinopril, HCTZ, amlodipine, clonidine--has not improved--cont IVF--if no improvement ? new baseline?
Type 2 diabetes mellitus--well controlled--holding dapagliflozin, metformin due to elevated creatinine of 1.9- Presently patient should continue on insulin sliding scale
PAD--History of balloon angioplasty of right proximal anterior tibial artery on 10/22/History of balloon angioplasty of the distal anterior tibial artery on 10/22/History of selective cannulization of the right posterior tibial artery with limited
balloon angioplasty on 12/17-- Continue aspirin--await vascular input
Anemia of chronic disease--His hemoglobin normally sits around 7.5-9-- Will transfuse 1 unit of blood if hemoglobin is less than 7-- No symptoms of an acute bleed such as tachycardia, shortness of breath, fatigue, pallor, cool skin.
Essential hypertension- restart amlodipine, hydralazine, hydrochlorothiazide, lisinopril as clinically able
Hyperlipidemia--confirm meds
Obesity--affects all aspects of care
code status--Full code
DVT proph--�heparin
Original Note:
Today's Communication/Plan
-
- consult with vascular and podiatry
Assessment / Plan
Assessment / Plan
Acute osteomyelitis secondary to poor transmetatarsal amputation site healing
- History of right transmetatarsal amputation with primary closure on 12/17
- Physical examination shows complete right metatarsal amputation with complete wound dehiscence, purulent drainage, and dry necrotic edges
- Foot xray on 02/13/25 shows acute osteomyelitis of the 1st through 5th metatarsal shafts most pronounced in 1st shaft
- Continue empiric Vancomycin and Zosyn as blood cultures show bacteroides fragilis as per infectious disease recc
- Will consult Vascular surgery in regards to prelim flow u/s of the right lower extremity to see if patient is a candidate for TADV.
- ESR is 113 and C-reactive protein is 125 which are helpful for long-term monitoring
- Podiatry following
- Tylenol for mild pain, IV Dilaudid 0.25 for moderate pain, and Dilaudid 0.5 q4h for severe pain
Pre renal Acute kidney injury:
- Today his creatinine is still elevated at 1.9 from baseline 1.0
- Continue IV fluids
- Restarted amlodipine and clonidine
- hold lisinopril, HCTZ
Type 2 diabetes mellitus:
- Today his glucose is 92 well-controlled
- Hold dapagliflozin, metformin due to elevated creatinine of 1.9
- Presently patient should continue on insulin sliding scale
PAD
History of balloon angioplasty of right proximal anterior tibial artery on 10/22
History of balloon angioplasty of the distal anterior tibial artery on 10/22
History of selective cannulization of the right posterior tibial artery with limited balloon angioplasty on 12/17
- Continue aspirin
Anemia of chronic disease
-His hemoglobin normally sits around 7.5-9
- Hemoglobin 9.1. Will transfuse 1 unit of blood if hemoglobin is less than 7.
- Ordered a type and screen
- No symptoms of an acute bleed such as tachycardia, shortness of breath, fatigue, pallor, cool skin.
Essential hypertension
- - Restarted amlodipine and clonidine
Hyperlipidemia
- Have to confirm medication list first
Glaucoma of left eye:
- Continue brimonidine, timolol
Obesity
Full code
DVT prophylaxis�heparin
Regular diet
Anticipated Discharge: 24 - 48 hours
Subjective/Interval History
-
Date of Service: February 15, 2025
No overnight events
No pain, No headache, fever, chills, nausea, diarrhea, vomiting, abdominal pain, altered mental status, diaphoresis.
Objective Data
-
Labs:
Laboratory Results
02/15/25 02/15/25
05:58 05:59
WBC 8.1
Hgb 9.1 L
Hct 28.4 L
Plt Count 463 H
Sodium 135
Potassium 4.2
Chloride 102
Carbon Dioxide 22
BUN 27 H
Creatinine 1.9 H
Glucose 92
Calcium 9.3
Total Bilirubin 0.4
AST 26
ALT 37
Alkaline Phosphatase 117
Vital Signs:
Vital Signs
Temp Pulse Resp BP Pulse Ox
97.9 F 80 20 108/61 98
02/15/25 11:00 02/15/25 11:00 02/15/25 11:00 02/15/25 11:00 11/04/25 11:00
I&O
02/14/25 02/15/25 02/16/25
06:59 06:59 06:59
Intake Total 480 / 480 4950 / 4950 200 / 200
Output Total 350 / 350 2500 / 2500
Balance 130 / 130 2450 / 2450 200 / 200
Review of Systems
-
History Source: Patient
All other systems: Reviewed and negative
Physical Exam
-
General: Well Developed
Respiratory: Clear to Auscultation
Cardiac: Regular Rhythm and S1/S2
GI: Soft, Nontender, Nondistended and Normal Bowel Sounds
Musculoskeletal: Other (Left lower extremity BKA. Amputation of all digits of right foot. Right foot TMA site with dry necrotic edges, serous drainage , no foul odor, wound dehiscence at the TMA site.)
Neuro: AO x 3
Psych: Calm
Data Reviewed
-
Labs: Labs Reviewed by me and Discussed with Physician
[2025-02-15] MEDS: NSS IV (14:36)
[2025-02-15 15:15] VITALS: BP 98/55
[2025-02-15] MEDS: APRESOLINE PO ×2 (17:00→21:29)
[2025-02-15 17:05] LABS: Glucose - Point of Care 146 mg/dl (70-99)
[2025-02-15 19:00] VITALS: BP 118/66
[2025-02-15] MEDS: DILAUDID 0.25 MG IV (20:12)
[2025-02-15] MEDS: PERCOCET 5/325 2 TABLET PO (21:27)
[2025-02-15 21:46] LABS: Glucose - Point of Care 116 mg/dl (70-99)
[2025-02-15 23:41] VITALS: BP 103/66
[2025-02-16] MEDS: ZOSYN 50 IV ×4 (01:16→20:56)
[2025-02-16 03:15] VITALS: BP 131/66
[2025-02-16 05:50] LABS: Hematocrit 28.5 % (39.0-52.0); Hemoglobin 8.9 g/dL (13.0-18.0); Mean Corp Hgb Conc. 31.2 g/dL (33.0-37.0); Mean Corpuscular Volume 90.2 fL (80.0-94.0); Nucleated Red Blood Cells % 0 % (-); Platelet Count 439 10^3/uL (130-400); Red Cell Dist. Width 16.4 % (11.5-14.5)
[2025-02-16 06:11] LABS: ALT (SGPT) 42 U/L (0-50); AST (SGOT) 28 U/L (17-59); Albumin 3.1 g/dl (3.5-5.0); Alkaline Phosphatase 110 U/L (38-126); Blood Urea Nitrogen 21 mg/dl (9-20); Calcium 9.0 mg/dl (8.4-10.2); Carbon Dioxide 23 mmol/L (22-30); Chloride 105 mmol/L (98-107); Estimated Creatinine Clearance 45 ml/min; Glucose 78 mg/dl (70-99); Magnesium 2.0 mg/dl (1.6-2.3); Potassium 3.9 mmol/L (3.5-5.1); Sodium 136 mmol/L (135-145); Total Protein 5.9 g/dl (6.3-8.2); eGFR 40.38
[2025-02-16 07:40] VITALS: BP 146/81
[2025-02-16 08:23] LABS: Glucose - Point of Care 66 mg/dl (70-99)
[2025-02-16] MEDS: NOVOLOG FLEXPEN-LOW RESISTANCE SC ×3 (08:33→17:35)
[2025-02-16] MEDS: NSS 1000 IV (08:33)
[2025-02-16] MEDS: FEOSOL 325 MG PO (08:36)
[2025-02-16] MEDS: CATAPRES 0.1 MG PO (08:37)
[2025-02-16] MEDS: NEURONTIN 300 MG PO ×3 (08:37→20:57)
[2025-02-16] MEDS: LOW STRENGTH ASPIRIN 81 MG PO (08:37)
[2025-02-16] MEDS: CRESTOR 20 MG PO (08:38)
[2025-02-16] MEDS: NORVASC 10 MG PO (08:38)
[2025-02-16] MEDS: APRESOLINE 50 MG PO (08:39)
[2025-02-16] MEDS: PRED FORTE 1% EYE DROPS 1 DROP LEFT EYE ×4 (08:41→20:58)
[2025-02-16] MEDS: ATROPINE SULFATE 1% DROPS 1 DROP LEFT EYE ×2 (08:41→20:57)
[2025-02-16] MEDS: TIMOPTIC 0.5% OPHTHALMIC SOLUTION 1 DROP LEFT EYE ×2 (08:42→20:57)
[2025-02-16] MEDS: HEPARIN 5000 UNITS SC ×2 (08:42→20:56)
[2025-02-16] MEDS: TRUSOPT 2% OPHTHALMIC SOLUTION 1 DROP LEFT EYE ×2 (08:42→20:58)
[2025-02-16] MEDS: ALPHAGAN 0.2% EYE DROPS 1 DROP LEFT EYE ×2 (08:42→20:57)
[2025-02-16] MEDS: PERCOCET 5/325 2 TABLET PO (08:50)
[2025-02-16 08:54] LABS: Glucose - Point of Care 78 mg/dl (70-99)
--- NOTE | 2025-02-16 09:05 | W.PN.VS ---
Addendum entered and electronically signed by Aníbal De La Garza MD 02/16/25 10:36:
Seen and examined with MONO Vega. Agree with findings as noted below. Left BKA site finally looks essentially healed. Right TMA site skin edges dry necrosis, somewhat ischemic appearing tissue in posterior flap of skin. However more proximally in
the foot appears reasonable and potentially viable. I discussed with them unfortunately this represents a complex situation and significant risk of limb loss/BKA needed. He understands all that. However for completeness sake and in a attempt of
limb salvage, I discussed we could trial LimFlow/TADV. I did not think that this would be a great option for him initially based on potential worsening of one of his runoff vessels when doing that, but now given nonhealing of his TMA I think it may
be warranted. Discussed with him that could trial that, but have a stance to surgically revise TMA more proximally or primary BKA in the OR if not feasible. He understands all this and wishes to proceed. Likely plan OR tomorrow.
Original Note:
Today's Communication / Plan
-
Patient seen and examined at bedside with Dr. Aníbal De La Garza, below plan reviewed with attending
Assessment/Plan
-
Assessment: 59-year-old male with peripheral arterial disease status post left BKA and with continued nonhealing right TMA site
Plan:
Patient seen and examined at bedside with Dr. Aníbal De La Garza who also evaluated preoperative limb flow ultrasound, deemed candidate for attempt at right lower extremity limflow as last ditch effort to allow TMA site to heal. Will add onto the OR
schedule for tomorrow (02/17/2025) with Dr. Aníbal De La Garza M.D. for attempt at right lower extremity limflow (TADV) and right lower extremity TMA revision vs right lower extremity BKA
N.p.o. at midnight
Plan relayed to hospitalist team via Huffman text
Subjective Data
-
Date of Service: February 16, 2025
Patient seen and examined at bedside, offers no complaints currently.
Objective Data
-
Vital Signs
Temp Pulse Resp BP Pulse Ox
97.7 F 72 16 146/81 98
02/16/25 07:40 02/16/25 08:38 02/16/25 07:40 02/16/25 08:38 02/16/25 08:02
Intake and Output
02/15/25 02/16/25 02/17/25
06:59 06:59 06:59
Intake Total 4950 / 4950 4650 / 4650
Output Total 2500 / 2500 1800 / 1800
Balance 2450 / 2450 2850 / 2850
Intake:
Oral fluids 2400 / 2400 1900 / 1900
IV fluids (Total) 2350 / 2350 2350 / 2350
IV piggybacks 200 / 200 400 / 400
Output:
Urine, Voided 2500 / 2500 1800 / 1800
Lab Results
02/16/25 05:26
02/16/25 05:26
Calcium 9.0 mg/dl (8.4-10.2) 02/16/25 05:26
Magnesium 2.0 mg/dl (1.6-2.3) 02/16/25 05:26
Total Bilirubin 0.3 mg/dl (0.2-1.3) 02/16/25 05:26
AST 28 U/L (17-59) 02/16/25 05:26
ALT 42 U/L (0-50) 02/16/25 05:26
Alkaline Phosphatase 110 U/L (38-126) 02/16/25 05:26
Total Protein 5.9 g/dl (6.3-8.2) L 02/16/25 05:26
Albumin 3.1 g/dl (3.5-5.0) L 02/16/25 05:26
Physical Exam
-
AAOx3
No tachypnea on RA
Audio/Visual Operator tachycarida
Abd soft, Non Tender and Non Distended
Left BKA stump healed
Right TMA site with dry gangrene and eschar, non-malodorous, nonpurulent drainage
[2025-02-16] MEDS: MIRALAX 17 GRAMS PO (09:09)
--- NOTE | 2025-02-16 09:49 | PHA.VAN.FU ---
Vancomycin Assessment / Plan
- Assessment
Renal Function: Stable
WBC's are: WNL
In the past 24 hrs, patient has been: Afebrile
Concomitant Antimicrobials: piperacillin/tazobactam
- Dosing Plan
Dosing by Level: Hold off on dosing today
- Monitoring Plan
Random Level: 02/17 06
- Follow Up
Pharmacy will continue to follow.
Vancomycin Follow UP
- -
Patient Age: 59
Patient Sex: Male
Vancomycin Day #: 4
Indication: Bone And Joint
Requesting Provider: Medardo
Pertinent Antimicrobial Allergies:
NKDA
Height / Weight:
Height 5 ft 11 in
Actual Weight 89.857 kg
Pertinent Past Medical History: PAD, DM 2, L. AKA
- Vital Signs / Lab Results
Temp Pulse Resp BP Pulse Ox
97.7 F 72 16 146/81 98
02/16/25 07:40 02/16/25 08:38 02/16/25 07:40 02/16/25 08:38 02/16/25 08:02
Lab Results - Hematology
02/13/25 02/14/25 02/15/25
17:44 10:05 05:59
WBC 9.6 9.8 8.1
02/16/25
05:26
WBC 7.0
Lab Results - Chemistry
02/13/25 02/14/25 02/15/25
17:44 10:05 05:58
BUN 38 H 33 H 27 H
Creatinine 1.9 H 1.9 H 1.9 H
Estimated Creat Clear 45 45
Albumin 3.9 3.5 3.4 L
02/16/25
05:26
BUN 21 H
Creatinine 1.9 H
Estimated Creat Clear 45
Albumin 3.1 L
02/13/25 02/13/25
18:57 23:00
Lactic Acid 1.2 Cancelled
Microbiology Results
02/13/25 18:57 Blood Culture - Preliminary
Blood/Venous Positive culture in progress
Gram Stain - Preliminary
02/14/25 15:19 Wound Culture - Preliminary
Foot - Right Gram Stain - Preliminary
02/13/25 18:57 Blood Culture - Preliminary
Blood/Venous Bacteroides fragilis
Gram Stain - Preliminary
02/13/25 22:20 MRSA Screen - Final
Nose No Methicillin Resistant Staphylococcus aureus isolated.
Therapeutic Drug Monitoring
Random Vancomycin 14.7 ug/ml 02/15/25 05:58
[2025-02-16 11:10] VITALS: BP 102/54
[2025-02-16 11:15] LABS: Glucose - Point of Care 133 mg/dl (70-99)
--- NOTE | 2025-02-16 13:30 | W.PN.ID1 ---
Addendum entered and electronically signed by Terri Boucher MD 02/16/25 16:18:
I saw and evaluated the patient. I reviewed the resident�s note and agree with findings and plan as documented in the resident�s note.
S:
Afebrile
bp stable
no complaints
Physical Exam
Constitutional: No Acute Distress
Cardiovascular: Regular Rate and S1/S2; Negative Murmur or Rub
Pulmonary: Clear and Symmetric; Negative Wheezes or Rales
Gastrointestinal: Soft, Non Tender, Non Distended and Normal Bowel Sounds
Skin: Warm and Dry; Negative Rash or Jaundice
Wound: Other (deferred dressing take down today)
O:
labs reviewed notably
blood cultures 02/13: bacteroides
wound culture in progress - CONS thus far, polymicrobial gram stain with moderate GNR and moderate GPCs
A&P
Bacteroides bacteremia
Osteomyelitis 1st-5th metatarsal shafts
History of TMA - surgical site dehisced
LINDY
- blood cultures x2 in progress Bacteroides; repeat blood cultures x2 ordered
- MRSA screen negative
- wound culture in progress - CONS thus far, polymicrobial gram stain with moderate GNR and moderate GPCs
- asked lab to get ID and sensi on the CONS
- note surgical plans for possible limbflow, proximally TMA vs BKA - for the OR tomorrow
- continue vancomycin and zosyn at this time - pending wound culture
- follow clinically
AW
Original Note:
Date of Service
Date of Service: February 16, 2025
Today's Communication
Continue Zosyn and vancomycin
Assessment / Plan
- Osteomyelitis of right 1st through 5th metatarsal shafts:
- Osteomyelitis of prior right transmetatarsal amputation site:
- Dehiscence of TMA surgical site:
- Acute kidney injury:
Prior wound culture of right foot positive for staph lugdunensis and bacteroides fragilis on 12/05/2024 and was treated with Zosyn and vancomycin and discharged with a 7-day course
Patient presented with a creatinine of 1.9 which is markedly elevated from his baseline of 0.9
Right foot x-ray conducted on 02/13/2025 showed New radiolucency and probable osteolysis in the distal ends of the 1st through 5th metatarsal shafts (most pronounced in the distal 1st metatarsal) suggesting ACUTE OSTEOMYELITIS given the interval
change in appearance since 12/20/2024 and the presence of an overlying wound.
MRSA negative
Blood cultures x 2 in progress are positive for Bacteroides -repeat blood cultures x 2 ordered
Wound cultures x 2 pending -appears to be coagulase negative staph, with moderate amounts of gram-negative rods and moderate gram-positive cocci
Continue Zosyn and vancomycin -adjust based on culture and sensitivities
BKA should be considered as curative therapy
Chief Complaint
-: Other (surgical site infection)
Subjective / Review of Systems
Spoke to the patient at the bedside. He offers no new complaints at the present time. He has hope after being told that his left leg wound was healing well. He has been stressed due to the recent left limb amputation and likelihood of his
upcoming right limb amputation. He excepts that it is likely that his right lower limb will not be able to be salvaged and is mentally prepared for that possible outcome. He believes that his pain is being managed well currently.
Review of Systems: No Fever, No Chills, No Headache, No Pharyngitis and No Stiff Neck
Vital Signs / Physical Exam
Vital Signs
Vital Signs
Temp Pulse Resp BP Pulse Ox
97.4 F 68 16 95/49 99
02/16/25 15:00 02/16/25 15:00 02/16/25 15:00 02/16/25 15:00 02/16/25 15:00
Physical Exam
Constitutional: No Acute Distress
Cardiovascular: Regular Rate and S1/S2; Negative Murmur or Rub
Pulmonary: Clear and Symmetric; Negative Wheezes or Rales
Gastrointestinal: Soft, Non Tender, Non Distended and Normal Bowel Sounds
Skin: Warm and Dry; Negative Rash or Jaundice
Wound: Other (deferred dressing take down today)
Neurological: Awake, Alert, Oriented and AO x 3
Psychological: Calm
Objective Data
Lab Data
Lab Results
02/16/25 05:26
02/16/25 05:26
ESR 113 mm/hour (0-20) H 02/15/25 05:59
Estimated Creat Clear 45 ml/min 02/16/25 05:26
Lactic Acid Cancelled 02/13/25 23:00
Total Bilirubin 0.3 mg/dl (0.2-1.3) 02/16/25 05:26
AST 28 U/L (17-59) 02/16/25 05:26
ALT 42 U/L (0-50) 02/16/25 05:26
Alkaline Phosphatase 110 U/L (38-126) 02/16/25 05:26
C-Reactive Protein 125.00 mg/L (0.0-10.00) H 02/15/25 05:58
Most recent labs reviewed.
Micro Results:
02/16/25 14:21 Blood Culture - Pending
Blood/Venous
02/16/25 13:52 Blood Culture - Pending
Blood/Venous
02/14/25 15:19 Wound Culture - Preliminary
Foot - Right Gram Stain - Preliminary
02/13/25 18:57 Blood Culture - Preliminary
Blood/Venous Positive culture in progress
Gram Stain - Preliminary
02/13/25 18:57 Blood Culture - Preliminary
Blood/Venous Bacteroides fragilis
Gram Stain - Preliminary
02/13/25 22:20 MRSA Screen - Final
Nose No Methicillin Resistant Staphylococcus aureus isolated.
[2025-02-16 14:42] LABS: Glucose - Point of Care 133 mg/dl (70-99)
[2025-02-16 15:00] VITALS: BP 95/49
--- NOTE | 2025-02-16 15:34 | W.PN.HOSP.TC ---
Addendum entered and electronically signed by Isabelle Power MD 02/16/25 16:07:
I saw and evaluated the patient independently. I reviewed and discussed the resident�s note and agree with findings and plan as documented by Dr. Owens.
GENERAL: well developed, well nourished, male in no apparent distress
HEENT:NC/AT- no O2 requirements
HEART: regular rate and rhythm, +S1, +S2
LUNGS : clear to auscultation bilaterally
ABDOM: soft, nontender, nondistended, + bowel sounds
EXT: no cyanosis, clubbing, or edema--left LE BKA and right TMA with dehiscence of the wound and dry gangrene
NEUROLOGIC: nonfocal
Acute osteomyelitis with Bacteroides fragilis bacteremia secondary to poor transmetatarsal amputation site healing---repeat blood cultures to ensure clearance--History of right transmetatarsal amputation with primary closure on 12/17--apprec podiatry,
apprec vascular--prior to OR looking for need for TADV from vascular to help wound healing, apprec vascular input, trying for limbflo salvage but may need BKA--going to OR in AM--cont pain meds---cont vanco/zosyn for now---ESR, CRP both
elevated--will defer to podiatry and vascular but definitive/curative treatment would likely be amputation either further TMA or BKA.....
Acute kidney injury--creatinine is still elevated at 1.9 from baseline 1.0 despite IVF--will stop--bladder scan patient (RN reports >1200 by scan, pt voided 1000, and post void 500)--placing correa in prep for OR tomorrow as well- hold lisinopril,
HCTZ, amlodipine, clonidine
Type 2 diabetes mellitus--well controlled to slightly hypoglycemic--holding dapagliflozin, metformin due to elevated creatinine of 1.9--Presently patient should continue on insulin sliding scale--start low dose D5 IVF after midnight
PAD--History of balloon angioplasty of right proximal anterior tibial artery on 10/22/History of balloon angioplasty of the distal anterior tibial artery on 10/22/History of selective cannulization of the right posterior tibial artery with limited
balloon angioplasty on 12/17-- Continue aspirin--apprec vascular input
Anemia of chronic disease--His hemoglobin normally sits around 7.5-9-- Will transfuse 1 unit of blood if hemoglobin is less than 7-- No symptoms of an acute bleed such as tachycardia, shortness of breath, fatigue, pallor, cool skin.
Essential hypertension--now hypotensive with SBP in high 80s to 90s--holding amlodipine, hydralazine, hydrochlorothiazide, lisinopril
Hyperlipidemia--confirm meds
Obesity--affects all aspects of care
code status--Full code
DVT proph--�heparin
Original Note:
Today's Communication/Plan
-
- NPO from midnight for procedure tomm
Assessment / Plan
Assessment / Plan
Acute osteomyelitis secondary to poor transmetatarsal amputation site healing
- History of right transmetatarsal amputation with primary closure on 12/17
- Physical examination shows complete right metatarsal amputation with complete wound dehiscence, purulent drainage, and dry necrotic edges
- Foot xray on 02/13/25 shows acute osteomyelitis of the 1st through 5th metatarsal shafts most pronounced in 1st shaft
- Continue empiric Vancomycin and Zosyn as blood cultures show bacteroides fragilis as per infectious disease recc
- vascular surgery deemed him candidate for attempt at right lower extremity limflow as last ditch effort to allow TMA site to heal. Will add onto the OR schedule for tomorrow (02/17/2025) with Dr. Aníbal De La Garza,
- ESR is 113 and C-reactive protein is 125 which are helpful for long-term monitoring
- Podiatry following
- Percocet for mild and moderate pain, and Dilaudid 0.25 q4h for severe pain
Pre renal Acute kidney injury:
- Today his creatinine is still elevated at 1.9 from baseline 1.0
- discontinue iv fluids as this is not pre-renal LINDY because patient is eating and drinking well, has received IV fluids for over 3 days, and BUN/Cr is less than 20.
- Bladder scan shows urinary retention as volume is greater than 400 ml. Correa cath order placed.
- Urine studies, urinalysis pending
- Restarted amlodipine and clonidine
- hold lisinopril, HCTZ
Type 2 diabetes mellitus:
- Today his glucose is 78 well-controlled
- Hold dapagliflozin, metformin due to elevated creatinine of 1.9
- Presently patient should continue on insulin sliding scale
PAD
History of balloon angioplasty of right proximal anterior tibial artery on 10/22
History of balloon angioplasty of the distal anterior tibial artery on 10/22
History of selective cannulization of the right posterior tibial artery with limited balloon angioplasty on 12/17
- Continue aspirin
Anemia of chronic disease
-His hemoglobin normally sits around 7.5-9
- Hemoglobin 8.9. Will transfuse 1 unit of blood if hemoglobin is less than 7.
- Ordered a type and screen
- No symptoms of an acute bleed such as tachycardia, shortness of breath, fatigue, pallor, cool skin.
Essential hypertension
- - Restarted amlodipine and clonidine
Hyperlipidemia
- Have to confirm medication list first
Glaucoma of left eye:
- Continue brimonidine, timolol
Obesity
Full code
DVT prophylaxis�heparin
Regular diet
Anticipated Discharge: 24 - 48 hours
Subjective/Interval History
-
Date of Service: February 16, 2025
No overnight events
No pain, No headache, fever, chills, nausea, diarrhea, vomiting, abdominal pain, altered mental status, diaphoresis.
Objective Data
-
Labs:
Laboratory Results
02/16/25
05:26
WBC 7.0
Hgb 8.9 L
Hct 28.5 L
Plt Count 439 H
Sodium 136
Potassium 3.9
Chloride 105
Carbon Dioxide 23
BUN 21 H
Creatinine 1.9 H
Glucose 78
Calcium 9.0
Total Bilirubin 0.3
AST 28
ALT 42
Alkaline Phosphatase 110
Vital Signs:
Vital Signs
Temp Pulse Resp BP Pulse Ox
97.5 F 68 18 102/54 98
02/16/25 11:10 02/16/25 11:10 02/16/25 11:10 02/16/25 11:10 02/16/25 11:51
I&O
02/15/25 02/16/25 02/17/25
06:59 06:59 06:59
Intake Total 4950 / 4950 4650 / 4650
Output Total 2500 / 2500 1800 / 1800 1000 / 1000
Balance 2450 / 2450 2850 / 2850 -1000 / -1000
Review of Systems
-
History Source: Patient
All other systems: Reviewed and negative
Physical Exam
-
General: Well Developed
Respiratory: Clear to Auscultation
Cardiac: Regular Rhythm and S1/S2
GI: Soft, Nontender, Nondistended and Normal Bowel Sounds
Musculoskeletal: Other (Left lower extremity BKA. Amputation of all digits of right foot. Right foot TMA site with dry necrotic edges, serous drainage , no foul odor, wound dehiscence at the TMA site.)
Neuro: AO x 3
Psych: Calm
Data Reviewed
-
Labs: Labs Reviewed by me and Discussed with Physician
[2025-02-16 15:53] LABS: Urine Character Clear (Clear)
[2025-02-16 16:06] LABS: Urine Red Blood Cell 0-2 /HPF (0-2)
--- NOTE | 2025-02-16 16:13 | PTCARENOTE ---
Pt with BP of 95/48, MD aware, BP meds placed on hold. BS 1202, voided 1000, residual BS greater than 537, MD made aware, Bustamante to be placed. No new orders at this time.
--- NOTE | 2025-02-16 16:32 | W.PN.UPDATE ---
Update Note
Progress Note Update
Appreciate vascular surgery, Noted that vascular surgery plans for a limflow procedure as a last ditch attempt and possible Rt TMA revision or BKA..
Podiatry will sign off case now and available if needed .
--- NOTE | 2025-02-16 16:55 | CM ---
Patient seen at bedside with patient mother and physicians on [address]. Patient states he is willing to consider SNF or rehab pending medical treatment plan. CM reviewed with patient mother options and PAC data provided lists. CM will continue to
follow for discharge planning needs.
Plan; SNF vs Acute rehab pending medical treatment plan
[2025-02-16 17:26] LABS: Glucose - Point of Care 141 mg/dl (70-99)
[2025-02-16 19:53] VITALS: BP 111/64
[2025-02-16 21:35] LABS: Glucose - Point of Care 166 mg/dl (70-99)
[2025-02-16 23:33] VITALS: BP 110/65
[2025-02-17] VITALS (17 sets, daily range): BP systolic 102–134; BP diastolic 60–77; BMI 27.6
[2025-02-17] MEDS: D5W 1000 IV (00:20)
[2025-02-17] MEDS: ZOSYN 50 IV ×3 (02:51→21:04)
[2025-02-17 07:48] LABS: Glucose - Point of Care 121 mg/dl (70-99)
[2025-02-17] MEDS: NOVOLOG FLEXPEN-LOW RESISTANCE SC ×3 (07:49→17:03)
[2025-02-17] MEDS: CATAPRES 0.1 MG PO (08:19)
[2025-02-17] MEDS: LOW STRENGTH ASPIRIN 81 MG PO (08:19)
[2025-02-17] MEDS: NEURONTIN 300 MG PO ×3 (08:19→21:07)
[2025-02-17] MEDS: CRESTOR 20 MG PO (08:19)
[2025-02-17] MEDS: MIRALAX PO (08:20)
[2025-02-17] MEDS: HEPARIN 5000 UNITS SC ×2 (08:21→21:04)
[2025-02-17] MEDS: TIMOPTIC 0.5% OPHTHALMIC SOLUTION 1 DROP LEFT EYE ×2 (08:22→21:03)
[2025-02-17] MEDS: PRED FORTE 1% EYE DROPS 1 DROP LEFT EYE ×3 (08:22→21:02)
[2025-02-17] MEDS: ATROPINE SULFATE 1% DROPS 1 DROP LEFT EYE ×2 (08:22→21:03)
[2025-02-17] MEDS: ALPHAGAN 0.2% EYE DROPS 1 DROP LEFT EYE ×2 (08:22→21:03)
[2025-02-17] MEDS: TRUSOPT 2% OPHTHALMIC SOLUTION 1 DROP LEFT EYE ×2 (08:22→21:03)
[2025-02-17 08:49] LABS: Hematocrit 28.8 % (39.0-52.0); Hemoglobin 9.3 g/dL (13.0-18.0); Mean Corp Hgb Conc. 32.3 g/dL (33.0-37.0); Mean Corpuscular Volume 90.9 fL (80.0-94.0); Nucleated Red Blood Cells % 0 % (-); Platelet Count 478 10^3/uL (130-400); Red Cell Dist. Width 16.6 % (11.5-14.5)
--- NOTE | 2025-02-17 09:30 | W.PN.ID1 ---
Addendum entered and electronically signed by Terri Boucher MD 02/17/25 16:06:
I saw and evaluated the patient. I reviewed the resident�s note and agree with findings and plan as documented in the resident�s note with the following additions/corrections:
Saw patient in the PACU
Patient underwent Limb-flow procedure only, there was no debridement of the TMA sites
tolerating current therapies
Physical Exam
Constitutional: No Acute Distress
Cardiovascular: Regular Rate and S1/S2; Negative Murmur or Rub
Pulmonary: Clear and Symmetric; Negative Wheezes or Rales
Gastrointestinal: Soft, Non Tender, Non Distended and Normal Bowel Sounds
Skin: Warm and Dry; Negative Rash or Jaundice
Wound: deferred dressing take down today, dressing is clean, dry, intact
O:
labs reviewed notably
blood cultures 02/13: bacteroides
wound culture in progress - methicillin resistant S simulans and yeast thus far, polymicrobial gram stain with moderate GNR and moderate GPCs
A&P
Bacteroides bacteremia
Osteomyelitis 1st-5th metatarsal shafts
History of TMA - surgical site dehisced
LINDY
- blood cultures x2 in progress Bacteroides; repeat blood cultures x2 ordered and no growth to date
- MRSA screen negative
- wound culture in progress - methicillin resistant S simulans, yeast
- lab will ID the yeast - need to see identity before we can finalize a home regimen
- fluconazole has a category D interaction with clopidogrel for diminished efficacy of the clopidogrel; will review with vascular surgery whether prasugrel could be used instead
- start micafungin for tonight
- continue vancomycin and zosyn at this time
- patient will need a 6 week course of treatment for presumed osteomyelitis
- follow clinically
AW
Original Note:
Date of Service
Date of Service: February 17, 2025
Today's Communication
Continue Zosyn and vancomycin
Patient slated to go to the operating room for limflow procedure and if unsuccessful will undergo a BKA
Assessment / Plan
- Osteomyelitis of right 1st through 5th metatarsal shafts:
- Osteomyelitis of prior right transmetatarsal amputation site:
- Dehiscence of TMA surgical site:
- Acute kidney injury:
Prior wound culture of right foot positive for staph lugdunensis and bacteroides fragilis on 12/05/2024 and was treated with Zosyn and vancomycin and discharged with a 7-day course
Patient presented with a creatinine of 1.9 which is markedly elevated from his baseline of 0.9
Right foot x-ray conducted on 02/13/2025 showed New radiolucency and probable osteolysis in the distal ends of the 1st through 5th metatarsal shafts (most pronounced in the distal 1st metatarsal) suggesting ACUTE OSTEOMYELITIS given the interval
change in appearance since 12/20/2024 and the presence of an overlying wound.
MRSA negative
Blood cultures x 2 in progress are positive for Bacteroides -repeat blood cultures x 2 pending
Wound cultures x 2 pending -appears to be coagulase negative staph, with moderate amounts of gram-negative rods and moderate gram-positive cocci
Continue Zosyn and vancomycin
Patient slated to go to the operating room for limflow procedure and if unsuccessful patient will undergo a BKA
Chief Complaint
-: Other (surgical site infection)
Subjective / Review of Systems
Met with patient at the bedside. He is aware of his upcoming operation today and understands the risks and benefits. He hopes that the limb can be salvaged but is prepared for the possibility that he may undergo a BKA. Supportive counseling
provided at the bedside. Patient offers no complaints at the present time and believes that his pain is well-managed.
Review of Systems: No Fever, No Chills, No Headache, No Pharyngitis and No Stiff Neck
Vital Signs / Physical Exam
Vital Signs
Vital Signs
Temp Pulse Resp BP Pulse Ox
97.9 F 70 15 134/67 100
02/17/25 10:38 02/17/25 07:47 02/17/25 07:47 02/17/25 08:19 02/17/25 07:47
Physical Exam
Constitutional: No Acute Distress
Cardiovascular: Regular Rate and S1/S2; Negative Murmur or Rub
Pulmonary: Clear and Symmetric; Negative Wheezes or Rales
Gastrointestinal: Soft, Non Tender, Non Distended and Normal Bowel Sounds
Skin: Warm and Dry; Negative Rash or Jaundice
Wound: Other (deferred dressing take down today)
Neurological: Awake, Alert, Oriented and AO x 3
Psychological: Calm
Objective Data
Lab Data
Lab Results
02/17/25 07:31
02/17/25 07:31
ESR 113 mm/hour (0-20) H 02/15/25 05:59
Estimated Creat Clear 45 ml/min 02/17/25 07:31
Lactic Acid Cancelled 02/13/25 23:00
Total Bilirubin 0.4 mg/dl (0.2-1.3) 02/17/25 07:31
AST 22 U/L (17-59) 02/17/25 07:31
ALT 40 U/L (0-50) 02/17/25 07:31
Alkaline Phosphatase 113 U/L (38-126) 02/17/25 07:31
C-Reactive Protein 125.00 mg/L (0.0-10.00) H 02/15/25 05:58
Most recent labs reviewed.
Micro Results:
02/13/25 18:57 Blood Culture - Preliminary
Blood/Venous Bacteroides fragilis
Gram Stain - Preliminary
02/16/25 14:21 Blood Culture - Pending
Blood/Venous
02/16/25 13:52 Blood Culture - Pending
Blood/Venous
02/14/25 15:19 Wound Culture - Preliminary
Foot - Right Gram Stain - Preliminary
02/13/25 18:57 Blood Culture - Preliminary
Blood/Venous Bacteroides fragilis
Gram Stain - Preliminary
02/13/25 22:20 MRSA Screen - Final
Nose No Methicillin Resistant Staphylococcus aureus isolated.
--- NOTE | 2025-02-17 09:39 | PHA.VAN.FU ---
Vancomycin Assessment / Plan
- Assessment
WBC's are: WNL
In the past 24 hrs, patient has been: Afebrile
Concomitant Antimicrobials: piperacillin/tazobactam
- Assessment - Therapeutic Drug Monitoring
Random Level: 14.8 - drawn ~42.5H after previous dose of 1g
- Dosing Plan
Dosing by Level: Re-dose today (Vanc 1000mg)
- Monitoring Plan
No level(s) ordered at this time: consider random level for 02/19 based on stable level and half-life
- Follow Up
Pharmacy will continue to follow.
Vancomycin Follow UP
- -
Patient Age: 59
Patient Sex: Male
Vancomycin Day #: 5
Indication: [facility]
Requesting Provider: Medardo / Sander
Pertinent Antimicrobial Allergies:
NKDA
Height / Weight:
Height 5 ft 11 in
Actual Weight 89.857 kg
Pertinent Past Medical History: PAD, DM 2, L. AKA
- Vital Signs / Lab Results
Temp Pulse Resp BP Pulse Ox
98.1 F 70 15 134/67 100
02/17/25 07:47 02/17/25 07:47 02/17/25 07:47 02/17/25 08:19 02/17/25 07:47
Lab Results - Hematology
02/14/25 02/15/25 02/16/25
10:05 05:59 05:26
WBC 9.8 8.1 7.0
02/17/25
07:31
WBC 8.3
Lab Results - Chemistry
02/14/25 02/15/25 02/16/25
10:05 05:58 05:26
BUN 33 H 27 H 21 H
Creatinine 1.9 H 1.9 H 1.9 H
Estimated Creat Clear 45 45 45
Albumin 3.5 3.4 L 3.1 L
Lab Results - Urine
02/16/25
15:31
Urine Nitrite Negative
Ur Leukocyte Esterase Negative
Urine WBC 6-10 A
Ur Squamous Epith Cells 11-15
Urine Bacteria Many A
Microbiology Results
02/13/25 18:57 Blood Culture - Preliminary
Blood/Venous Bacteroides fragilis
Gram Stain - Preliminary
02/14/25 15:19 Wound Culture - Preliminary
Foot - Right Gram Stain - Preliminary
02/13/25 18:57 Blood Culture - Preliminary
Blood/Venous Bacteroides fragilis
Gram Stain - Preliminary
02/13/25 22:20 MRSA Screen - Final
Nose No Methicillin Resistant Staphylococcus aureus isolated.
Therapeutic Drug Monitoring
Random Vancomycin 14.8 ug/ml 02/17/25 07:31
[2025-02-17 09:42] LABS: ALT (SGPT) 40 U/L (0-50); AST (SGOT) 22 U/L (17-59); Albumin 3.3 g/dl (3.5-5.0); Alkaline Phosphatase 113 U/L (38-126); Blood Urea Nitrogen 18 mg/dl (9-20); Calcium 9.5 mg/dl (8.4-10.2); Carbon Dioxide 22 mmol/L (22-30); Chloride 106 mmol/L (98-107); Estimated Creatinine Clearance 45 ml/min; Glucose 118 mg/dl (70-99); Magnesium 2.0 mg/dl (1.6-2.3); Potassium 4.1 mmol/L (3.5-5.1); Sodium 134 mmol/L (135-145); Total Protein 6.2 g/dl (6.3-8.2); eGFR 40.38
[2025-02-17] MEDS: BACTROBAN 2% OINTMENT 1 APPLIC NASAL (10:00)
[2025-02-17] MEDS: VANCOCIN 200 IV (10:00)
[2025-02-17] MEDS: PERIDEX 0.12% ORAL RINSE 15 ML PO (10:00)
--- NOTE | 2025-02-17 10:47 | W.PN.HOSP.TC ---
Addendum entered and electronically signed by Isabelle Power MD 02/17/25 15:54:
I saw and evaluated the patient independently. I reviewed and discussed the resident�s note and agree with findings and plan as documented by Dr. Owens.
GENERAL: well developed, well nourished, male in no apparent distress--seen in PACU
HEENT:NC/AT- no O2 requirements
HEART: regular rate and rhythm, +S1, +S2
LUNGS : clear to auscultation bilaterally
ABDOM: soft, nontender, nondistended, + bowel sounds
EXT: no cyanosis, clubbing, or edema--left LE BKA and right TMA with dehiscence of the wound and dry gangrene--leg salvaged, post op dressing
NEUROLOGIC: nonfocal
Acute osteomyelitis with Bacteroides fragilis bacteremia secondary to poor transmetatarsal amputation site healing---repeat blood cultures negative--History of right transmetatarsal amputation with primary closure on 12/17--apprec podiatry, apprec
vascular--for limbflo salvage but may need BKA, pt now not amenable but vascular seems to have salvaged his leg s/p OR today--cont pain meds---cont vanco/zosyn for now---ESR, CRP both elevated
Acute kidney injury--creatinine is still elevated at 1.9 from baseline 1.0 despite IVF--will stop--bladder scan patient (RN reports >1200 by scan, pt voided 1000, and post void 500)-- correa in place- hold lisinopril, HCTZ, amlodipine, clonidine
Type 2 diabetes mellitus--well controlled to slightly hypoglycemic--holding dapagliflozin, metformin due to elevated creatinine of 1.9--Presently patient should continue on insulin sliding scale-- cont low dose D5 IVF
PAD--History of balloon angioplasty of right proximal anterior tibial artery on 10/22/History of balloon angioplasty of the distal anterior tibial artery on 10/22/History of selective cannulization of the right posterior tibial artery with limited
balloon angioplasty on 12/17-- Continue aspirin--apprec vascular input
Anemia of chronic disease--His hemoglobin normally sits around 7.5-9-- Will transfuse 1 unit of blood if hemoglobin is less than 7-- No symptoms of an acute bleed such as tachycardia, shortness of breath, fatigue, pallor, cool skin.
Essential hypertension--now hypotensive with SBP in high 80s to 90s--holding amlodipine, hydralazine, hydrochlorothiazide, lisinopril
Hyperlipidemia--confirm meds
Obesity--affects all aspects of care
code status--Full code
DVT proph--�heparin
Original Note:
Today's Communication/Plan
-
- f/u with vascular, trend creatinine, await cultures
Assessment / Plan
Assessment / Plan
Acute osteomyelitis secondary to poor transmetatarsal amputation site healing
- History of right transmetatarsal amputation with primary closure on 12/17
- Physical examination shows complete right metatarsal amputation with complete wound dehiscence, purulent drainage, and dry necrotic edges
- Foot xray on 02/13/25 shows acute osteomyelitis of the 1st through 5th metatarsal shafts most pronounced in 1st shaft
- Continue empiric Vancomycin and Zosyn as blood cultures show bacteroides fragilis as per infectious disease recc
- vascular surgery deemed him candidate for attempt at right lower extremity limflow as last ditch effort to allow TMA site to heal. Will add onto the OR schedule for today with Dr. Aníbal De La Garza. Pt is not amenable to BKA, so only limflow with
debridement of TMA today.
- ESR is 113 and C-reactive protein is 125 which are helpful for long-term monitoring
- Podiatry following
- Percocet for mild and moderate pain, and Dilaudid 0.25 q4h for severe pain
Pre renal Acute kidney injury:
- Today his creatinine is still elevated at 1.9 from baseline 1.0
- discontinue iv fluids as this is not pre-renal LINDY because patient is eating and drinking well, has received IV fluids for over 3 days, and BUN/Cr is less than 20.
- Bladder scan shows urinary retention as volume is greater than 400 ml. Correa cath order placed.
- Urine studies shows FeNa of 1.9 which is indeterminate. His UA shows urine glucose of 4+, few urine yeast, many bacteria, and wbc of 6-10 which i suspect is a diabetic nephropathy with possible early UTI. Urine culture ordered.
- observe creatinine and if still elevated then consult nephro.
- Restarted amlodipine and clonidine
- hold lisinopril, HCTZ
Type 2 diabetes mellitus:
- Today his glucose is 118 and well-controlled
- Hold dapagliflozin, metformin due to elevated creatinine of 1.9
- Presently patient should continue on insulin sliding scale
PAD
History of balloon angioplasty of right proximal anterior tibial artery on 10/22
History of balloon angioplasty of the distal anterior tibial artery on 10/22
History of selective cannulization of the right posterior tibial artery with limited balloon angioplasty on 12/17
- Continue aspirin
Anemia of chronic disease
-His hemoglobin normally sits around 7.5-9
- Hemoglobin 8.9. Will transfuse 1 unit of blood if hemoglobin is less than 7.
- Ordered a type and screen
- No symptoms of an acute bleed such as tachycardia, shortness of breath, fatigue, pallor, cool skin.
Essential hypertension
- - Restarted amlodipine and clonidine
Hyperlipidemia
- continue his atorvastatin
Glaucoma of left eye:
- Continue brimonidine, timolol
Obesity
Full code
DVT prophylaxis�heparin
Regular diet
Anticipated Discharge: 24 - 48 hours
Subjective/Interval History
-
Date of Service: February 17, 2025
No overnight events
No pain, No headache, fever, chills, nausea, diarrhea, vomiting, abdominal pain, altered mental status, diaphoresis.
Objective Data
-
Labs:
Laboratory Results
02/17/25
07:31
WBC 8.3
Hgb 9.3 L
Hct 28.8 L
Plt Count 478 H
Sodium 134 L
Potassium 4.1
Chloride 106
Carbon Dioxide 22
BUN 18
Creatinine 1.9 H
Glucose 118 H
Calcium 9.5
Total Bilirubin 0.4
AST 22
ALT 40
Alkaline Phosphatase 113
Vital Signs:
Vital Signs
Temp Pulse Resp BP Pulse Ox
98.1 F 70 15 134/67 100
02/17/25 07:47 02/17/25 07:47 02/17/25 07:47 02/17/25 08:19 02/17/25 07:47
I&O
02/16/25 02/17/25 02/18/25
06:59 06:59 06:59
Intake Total 4650 / 4650 2980 / 2980
Output Total 1800 / 1800 4800 / 4800
Balance 2850 / 2850 -1820 / -1820
Review of Systems
-
History Source: Patient
All other systems: Reviewed and negative
Physical Exam
-
General: Well Developed
Respiratory: Clear to Auscultation
Cardiac: Regular Rhythm and S1/S2
GI: Soft, Nontender, Nondistended and Normal Bowel Sounds
Musculoskeletal: Other (Left lower extremity BKA. Amputation of all digits of right foot. Right foot TMA site with dry necrotic edges, serous drainage , no foul odor, wound dehiscence at the TMA site.)
Neuro: AO x 3
Psych: Calm
Data Reviewed
-
Labs: Labs Reviewed by me and Discussed with Physician
--- NOTE | 2025-02-17 10:59 | W.PN.UPDATE ---
Update Note
Progress Note Update
I reviewed the plan with him. As per our discussion earlier this morning (and my discussion with Dr. Heath), he understands that he again has a limb threatening issue with nonhealing of his TMA. He knows that revascularization options are
very limited. However we can attempt TADV/LimFlow. He understands that there is not a guarantee this would be feasible, and understands that this may not be sustainable and result in wound healing. The other alternative I discussed with him would
be primary BKA. I also discussed if I am unable to complete successfully the procedure, would he be willing to proceed with BKA at that point. He is not ready for that yet. Therefore I discussed with him debriding the TMA if am unable to achieve
technical proceudral success (and possibly even if I am able to perform). He is in agreement with proceeding with TMA debridement (understanding keeping it open and likely VAC placement). I have reviewed this plan with Dr. Heath and she is
in agreement.
[2025-02-17] MEDS: ZOSYN IV (13:44)
--- NOTE | 2025-02-17 14:37 | W.SUR.POST ---
Surgical Immediate Post Op
Note
Pre Op Diagnosis: PAD
Post Op Diagnosis: PAD
Procedure Performed: RLE limbflow
Primary Surgeon: Frederic
Anesthesia: LMA
Estimated Blood Loss: 5cc
Fluids: See anesthesia flow sheet
Drains/Shunts: none
Specimens/Cultures: none
Doppler/Duplex/Angio (Y/N): Y
Complications: none
Operative Findings: doppler tadv circuit signal
[2025-02-17] MEDS: PRED FORTE 1% EYE DROPS LEFT EYE (14:44)
[2025-02-17] MEDS: D5W IV ×2 (14:44→16:19)
--- NOTE | 2025-02-17 14:54 | OR.RPT ---
Operative Report
Operative Report
PROCEDURE DATE: 02/17/2025
Preoperative diagnosis:
1. Chronic limb threatening ischemia right lower extremity with no arterial revascularization options.
2. Status post right TMA, poorly healing.
Postoperative diagnosis: Same
Procedure:
1. Duplex assisted cannulation of right lower extremity lateral plantar vein.
2. Duplex assisted cannulation of right common femoral artery.
3. Balloon angioplasty of proximal posterior tibial artery with 3 mm angioplasty balloon.
4. Transcatheter arterialization of the deep veins (TADV) right lower extremity - LimFlow procedure with placement of overlapping LimFlow stents (5.5mm x 150 mm, 5.5mm x 200mm, 5.5 to 3.5 mm tapered 60mm length).
5. Balloon angioplasty of deep veins including pedal venous system.
6. Supervision interpretation.
Surgeon: Frederic
Housing Manager: None
Complications: None
Anesthesia: General
Indications for procedure:
Chronic limb-threatening ischemia. Underwent TMA. Small vessel disease. Nonhealing TMA. Risk/benefits/alternatives of attempted transcatheter arterialization of the deep veins as discussed. Patient understood and wished to proceed.
Description of procedure:
Patient was identified brought to the operating room placed on the table in supine position. After the adequate administration of anesthesia he was prepped and draped in the standard surgical fashion. A standard preoperative timeout was undertaken
and everybody was in agreement the plan.
A sterile tourniquet was applied to the right calf and inflated while obtaining venous access. We obtained percutaneous
access in the Lateral Plantar Vein using ultrasound-guided micropuncture technique. An 0.035 wire was inserted and
upsized to a 4Fr sheath. A 0.014inch ADVERTISING SPECIALIST wire was advanced through the Lateral Plantar Vein into the Posterior Tibial Vein.
Attention was then turned to the patient�s right groin. We first obtained antegrade percutaneous access in the right
common femoral artery using fluoroscopic and ultrasound guidance. A 0.035 wire was inserted and upsized to a 5Fr
sheath over a Bentson wire, which was advanced into the Superficial Femoral Artery (SFA). We obtained a right lower extremity
angiogram, which demonstrated the right Posterior Tibial Artery had moderate origin disease, but distal severe disease was noted. See prior angiogram report for findings.
The Bentson wire was exchanged for a Storq wire. The sheath was upsized to a 7Fr destination sheath. Systemic heparin
was administered.
I had gained wire access into the posterior tibial artery with the Storq wire. I now exchanged over a CXI catheter for a ADVERTISING SPECIALIST wire. Balloon angioplasty of the proximal posterior tibial artery disease was performed with a 3 mm angioplasty balloon to
allow better passage of the arterial catheter.
Next, we advanced the LimFlow ARC� Arterial Catheter into the proximal Right Posterior Tibial Artery. We advanced the
LimFlow V-Ceiver� Venous Catheter to the Posterior Tibial vein from the Lateral Plantar Vein sheath at the same
approximate level. The fluoroscopy unit was rotated in such a way as to overlay the crossing device and snare.
The LimFlow crossing device (ARC) needle was deployed into the Posterior Tibial Vein. A separate 0.014 run through wire was advanced
through the crossing device into the venous snare (V-Ceiver) where it was captured and subsequently withdrawn
through the venous sheath, providing through and through wire access. The arteriovenous connection was ballooned
with a 3 mm x40 mm balloon.
In order to facilitate the remainder the procedure and device delivery, we exchanged for a 0.018 inch V18 through and through wire (CXI catheter was passed through the groin sheath all the way out the plantar foot sheath and then exchanged for the
wire).
Next, the forward cutting LimFlow Vector� Valvulotome was advanced from the arterial sheath
across the arteriovenous connection into the Posterior Tibial Vein. The valvulotome was deployed and advanced down
the vein in order to lyse the venous valves to the distal-most aspect of the Lateral Plantar Vein. A 5 x 200 balloon was
used to angioplasty the donor vein to confirm adequate valve effacement and absence of stricture within the donor
vein in preparation for stent placement. Distally there was recalcitrant stenosis that the balloon waist could not be resolved. Therefore a 5 mm cutting balloon was used and nicely resolved the waist.
We then deployed two LimFlow cylindrical stent grafts (5.5mm x 150mm and 5.5mm x 200mm) in the Posterior Tibial
Vein from the ankle extending proximally up the calf. Next the tapered conical stent (3.5-5.5mm x 60 mm) was deployed
proximally across the level of the arteriovenous connection. The stent grafts were post-dilated to 3 mm in the arterial
segment and 5 mm in the venous segment.
Angiogram was performed that demonstrated excellent positioning of the stents. Flow was still slow through the stented segment however. This indicated that the outflow needed to be enhanced, and also that the sheath may have been occlusive.
Plantar sheath was retracted to allow for wiring of the metatarsal aspect of the Lateral Plantar Vein. In fact when we did this, the outflow already improved as some hung up contrast started flowing through. A CXI catheter was advanced over the
0.018 inch wire from the groin. It was advanced out of the stents into the branch in the foot (presumably a plantar branch), the through and through wire was then removed. A steerable 0.018 inch Glidewire advantage wire was then utilized to try to
wire the outflow in the foot. I managed to advance the wire through a loop of the vein in the foot and then out into the outflow running up the ankle and the calf. Once I did this I advanced a 3 mm long angioplasty balloon through this entire
segment and ballooned this all open. Completion angiogram now demonstrated excellent flow around the pedal arch. There was still a little bit of disease/irregularity in the immediate outflow just distal to the vein. A 4 mm angioplasty was used
but there was still a residual waist after that. I therefore then used a 5 mm cutting balloon again and that isolated segment. Waist was completely resolved using the cutting balloon. Completion angiogram now demonstrated an excellent result with
excellent flow through the pedal loop. The plantar sheath was now withdrawn through the skin and manual pressure gently applied. Hemostasis was noted and a dressing applied. The sheath in the groin was withdrawn and manual pressure applied
appropriately. Full hemostasis was noted. Protamine had been given to reverse the heparin. Dry sterile dressings were applied. Handheld Doppler was performed at the distal
Posterior Tibial Vein, Lateral Plantar Vein, and outflow dorsal foot signals were noted to be good. The patient tolerated the procedure well.
[2025-02-17 15:08] LABS: Glucose - Point of Care 135 mg/dl (70-99)
--- NOTE | 2025-02-17 15:22 | CM ---
Patient out of room to procedure today. CM will continue to follow for discharge planning needs.
Plan; SNF/acute rehab pending therapy recommendations; will need referrals sent
[2025-02-17] MEDS: PLAVIX 300 MG PO (15:40)
[2025-02-17 15:50] LABS: Hematocrit 28.5 % (39.0-52.0); Hemoglobin 9.1 g/dL (13.0-18.0); Mean Corp Hgb Conc. 31.9 g/dL (33.0-37.0); Mean Corpuscular Volume 89.6 fL (80.0-94.0); Platelet Count 488 10^3/uL (130-400); Red Cell Dist. Width 16.7 % (11.5-14.5)
[2025-02-17] MEDS: NSS 1000 IV (16:13)
[2025-02-17] MEDS: DILAUDID 0.25 MG IV ×2 (16:59→21:11)
[2025-02-17 17:06] LABS: Glucose - Point of Care 137 mg/dl (70-99)
[2025-02-17] MEDS: MYCAMINE 105 MG IV (17:34)
[2025-02-17 21:28] LABS: Glucose - Point of Care 215 mg/dl (70-99)
[2025-02-18] MEDS: ZOSYN 50 IV ×4 (01:01→19:56)
[2025-02-18 03:16] VITALS: BP 119/64
[2025-02-18 07:00] VITALS: BP 127/75
[2025-02-18 07:10] LABS: Hematocrit 27.8 % (39.0-52.0); Hemoglobin 8.8 g/dL (13.0-18.0); Mean Corp Hgb Conc. 31.7 g/dL (33.0-37.0); Mean Corpuscular Volume 88.8 fL (80.0-94.0); Nucleated Red Blood Cells % 0 % (-); Platelet Count 457 10^3/uL (130-400); Red Cell Dist. Width 16.8 % (11.5-14.5)
[2025-02-18 07:48] LABS: ALT (SGPT) 33 U/L (0-50); AST (SGOT) 20 U/L (17-59); Albumin 3.2 g/dl (3.5-5.0); Alkaline Phosphatase 110 U/L (38-126); Blood Urea Nitrogen 18 mg/dl (9-20); Calcium 8.9 mg/dl (8.4-10.2); Carbon Dioxide 21 mmol/L (22-30); Chloride 105 mmol/L (98-107); Estimated Creatinine Clearance 50 ml/min; Glucose 101 mg/dl (70-99); Magnesium 1.9 mg/dl (1.6-2.3); Potassium 3.8 mmol/L (3.5-5.1); Sodium 133 mmol/L (135-145); Total Protein 6.1 g/dl (6.3-8.2); eGFR 46.15
[2025-02-18 08:09] LABS: Glucose - Point of Care 89 mg/dl (70-99)
[2025-02-18] MEDS: NOVOLOG FLEXPEN-LOW RESISTANCE SC ×2 (08:43→12:48)
--- NOTE | 2025-02-18 09:00 | W.PN.ID1 ---
Addendum entered and electronically signed by Terri Boucher MD 02/18/25 12:37:
I saw and evaluated the patient. I reviewed the resident�s note and agree with findings and plan as documented in the resident�s note with the following additions/corrections
afebrile, bp stable
no complaints
Physical Exam
Constitutional: No Acute Distress
Cardiovascular: Regular Rate and S1/S2; Negative Murmur or Rub
Pulmonary: Clear and Symmetric; Negative Wheezes or Rales
Gastrointestinal: Soft, Non Tender, Non Distended and Normal Bowel Sounds
Skin: Warm and Dry; Negative Rash or Jaundice
Wound: deferred dressing take down today, dressing is clean with some bloody strike through
O:
labs reviewed notably
blood cultures 02/13: bacteroides
wound culture in progress - methicillin resistant S simulans and yeast
A&P
Bacteroides bacteremia
Osteomyelitis 1st-5th metatarsal shafts
History of TMA - surgical site dehisced
LINDY
- blood cultures x2 in progress Bacteroides; repeat blood cultures x2 ordered and no growth to date
- MRSA screen negative
- wound culture in progress - methicillin resistant S simulans, yeast
- lab will ID the yeast - need to see identity before we can finalize a home regimen
- continue micafungin pending ID of the yeast, will switch to fluconazole if feasible, no drug drug interactions with prasugrel
- continue vancomycin and zosyn at this time
- patient will need a 6 week course of treatment for presumed osteomyelitis
- follow clinically
AW
Original Note:
Date of Service
Date of Service: February 18, 2025
Today's Communication
Continue Zosyn, vancomycin and micafungin
Reached out to podiatry in regards to wound debridement and possible wound VAC
Assessment / Plan
- Osteomyelitis of right 1st through 5th metatarsal shafts:
- Osteomyelitis of prior right transmetatarsal amputation site:
- Dehiscence of TMA surgical site:
- Acute kidney injury:
Prior wound culture of right foot positive for staph lugdunensis and bacteroides fragilis on 12/05/2024 and was treated with Zosyn and vancomycin and discharged with a 7-day course
Patient presented with a creatinine of 1.9 which is markedly elevated from his baseline of 0.9
Right foot x-ray conducted on 02/13/2025 showed New radiolucency and probable osteolysis in the distal ends of the 1st through 5th metatarsal shafts (most pronounced in the distal 1st metatarsal) suggesting ACUTE OSTEOMYELITIS given the interval
change in appearance since 12/20/2024 and the presence of an overlying wound.
MRSA negative
Blood cultures x 2 in progress are positive for Bacteroides -repeat blood cultures x 2 no growth
Wound culture -positive for methicillin resistant Staphylococcus stimulans with yeast. Contacted lab for further identification of the yeast before finalizing home medication regimen. Micafungin given on 02/17/2025�continue micafungin until
further identification of yeast
- Fluconazole has a category D interaction with clopidogrel which may diminish the efficacy of clopidogrel. Plan to review with vascular surgery whether prasugrel could be used instead
Patient tolerated his Limflow procedure without any complication
Continue Zosyn, vancomycin and micafungin
Reached out to podiatry in regards to wound debridement and possible wound VAC
Chief Complaint
-: Other (surgical site infection)
Subjective / Review of Systems
Met with patient at the bedside. Overall he states that he is doing much better today and is encouraged based on how his operation went. He is happy that the lymph flow operation succeeded and that he did not need to have a BKA. He hopes that
this procedure will help him from avoiding the need for a BKA. Spoke to me shortly about his plans for an upcoming vacation to the beach.
Review of Systems: No Fever, No Chills, No Headache, No Pharyngitis and No Stiff Neck
Vital Signs / Physical Exam
Vital Signs
Vital Signs
Temp Pulse Resp BP Pulse Ox
98.3 F 86 16 127/75 99
02/18/25 07:00 02/18/25 07:00 02/18/25 07:00 02/18/25 07:00 02/18/25 07:00
Physical Exam
Constitutional: No Acute Distress
Cardiovascular: Regular Rate and S1/S2; Negative Murmur or Rub
Pulmonary: Clear and Symmetric; Negative Wheezes or Rales
Gastrointestinal: Soft, Non Tender, Non Distended and Normal Bowel Sounds
Skin: Warm and Dry; Negative Rash or Jaundice
Wound: Other (deferred dressing take down today)
Neurological: Awake, Alert, Oriented and AO x 3
Psychological: Calm
Objective Data
Lab Data
Lab Results
02/18/25 06:20
02/18/25 06:20
ESR 113 mm/hour (0-20) H 02/15/25 05:59
Estimated Creat Clear 50 ml/min 02/18/25 06:20
Lactic Acid Cancelled 02/13/25 23:00
Total Bilirubin 0.4 mg/dl (0.2-1.3) 02/18/25 06:20
AST 20 U/L (17-59) 02/18/25 06:20
ALT 33 U/L (0-50) 02/18/25 06:20
Alkaline Phosphatase 110 U/L (38-126) 02/18/25 06:20
C-Reactive Protein 125.00 mg/L (0.0-10.00) H 02/15/25 05:58
Most recent labs reviewed.
Micro Results:
02/14/25 15:19 Wound Culture - Preliminary
Foot - Right Staphylococcus simulans
Yeast
Gram Stain - Preliminary
02/16/25 14:21 Blood Culture - Preliminary
Blood/Venous No Growth in 24 hours- Final report to follow
02/16/25 13:52 Blood Culture - Preliminary
Blood/Venous No Growth in 24 hours- Final report to follow
02/13/25 18:57 Blood Culture - Preliminary
Blood/Venous Bacteroides fragilis
Gram Stain - Preliminary
02/13/25 18:57 Blood Culture - Preliminary
Blood/Venous Bacteroides fragilis
Gram Stain - Preliminary
02/13/25 22:20 MRSA Screen - Final
Nose No Methicillin Resistant Staphylococcus aureus isolated.
[2025-02-18] MEDS: CRESTOR 20 MG PO (09:10)
[2025-02-18] MEDS: NEURONTIN 300 MG PO ×3 (09:10→21:01)
[2025-02-18] MEDS: CATAPRES 0.1 MG PO (09:11)
[2025-02-18] MEDS: LOW STRENGTH ASPIRIN 81 MG PO (09:11)
[2025-02-18] MEDS: HEPARIN 5000 UNITS SC ×2 (09:11→19:56)
[2025-02-18] MEDS: MIRALAX 17 GRAMS PO (09:11)
[2025-02-18] MEDS: FEOSOL 325 MG PO (09:12)
[2025-02-18] MEDS: TRUSOPT 2% OPHTHALMIC SOLUTION 1 DROP LEFT EYE ×2 (09:13→19:56)
[2025-02-18] MEDS: PRED FORTE 1% EYE DROPS 1 DROP LEFT EYE ×4 (09:14→21:01)
[2025-02-18] MEDS: ALPHAGAN 0.2% EYE DROPS 1 DROP LEFT EYE ×2 (09:16→19:56)
[2025-02-18] MEDS: ATROPINE SULFATE 1% DROPS 1 DROP LEFT EYE ×2 (09:17→19:56)
[2025-02-18] MEDS: TIMOPTIC 0.5% OPHTHALMIC SOLUTION 1 DROP LEFT EYE ×2 (09:19→19:56)
--- NOTE | 2025-02-18 09:20 | W.PN.VS ---
Today's Communication / Plan
-
Discussed with Dr. Bustamante
Assessment/Plan
-
Assessment: 59-year-old male with peripheral arterial disease status post left BKA and with continued nonhealing right TMA site
POD 1
1. Duplex assisted cannulation of right lower extremity lateral plantar vein.
2. Duplex assisted cannulation of right common femoral artery.
3. Balloon angioplasty of proximal posterior tibial artery with 3 mm angioplasty balloon.
4. Transcatheter arterialization of the deep veins (TADV) right lower extremity - LimFlow procedure with placement of overlapping LimFlow stents (5.5mm x 150 mm, 5.5mm x 200mm, 5.5 to 3.5 mm tapered 60mm length).
5. Balloon angioplasty of deep veins including pedal venous system.
Plan:
Excellent TADV Doppler signals
ok for discharge from vascular standpoint, follow up added to chart
Subjective Data
-
Date of Service: February 18, 2025
Objective Data
-
Vital Signs
Temp Pulse Resp BP Pulse Ox
98.3 F 86 16 127/75 99
02/18/25 07:00 02/18/25 07:00 02/18/25 07:00 02/18/25 07:00 02/18/25 07:00
Intake and Output
02/17/25 02/18/25 02/19/25
06:59 06:59 06:59
Intake Total 2980 / 2980 2034
Output Total 4800 / 4800 3325 / 3325
Balance -1820 / -1820 -1290 / -1290
Intake:
Oral fluids 1680 / 1680 850 / 850
IV fluids (Total) 1250 / 1250 980 / 980
IV piggybacks 50 / 50 205 / 205
Output:
Urine Bustamante 2600 / 2600 3325 / 3325
Urine, Voided 2200 / 2200
Lab Results
02/18/25 06:20
02/18/25 06:20
Calcium 8.9 mg/dl (8.4-10.2) 02/18/25 06:20
Magnesium 1.9 mg/dl (1.6-2.3) 02/18/25 06:20
Total Bilirubin 0.4 mg/dl (0.2-1.3) 02/18/25 06:20
AST 20 U/L (17-59) 02/18/25 06:20
ALT 33 U/L (0-50) 02/18/25 06:20
Alkaline Phosphatase 110 U/L (38-126) 02/18/25 06:20
Total Protein 6.1 g/dl (6.3-8.2) L 02/18/25 06:20
Albumin 3.2 g/dl (3.5-5.0) L 02/18/25 06:20
[2025-02-18] MEDS: EFFIENT 10 MG PO (10:01)
[2025-02-18] MEDS: PERCOCET 5/325 2 TABLET PO (10:07)
[2025-02-18 11:00] VITALS: BP 110/55
[2025-02-18 12:30] LABS: Glucose - Point of Care 144 mg/dl (70-99)
--- NOTE | 2025-02-18 13:51 | PHA.VAN.FU ---
Vancomycin Assessment / Plan
- Assessment
Renal Function: SCR Decreasing
WBC's are: Stable
In the past 24 hrs, patient has been: Afebrile
Concomitant Antimicrobials: piperacillin/tazobactam, micafungin
- Dosing Plan
Dosing by Level: Hold off on dosing today
- Monitoring Plan
Random Level: 02/19 06
- Follow Up
Pharmacy will continue to follow.
Vancomycin Follow UP
- -
Patient Age: 59
Patient Sex: Male
Vancomycin Day #: 6
Indication: Bone And Joint
Requesting Provider: Medardo / Sander
Pertinent Antimicrobial Allergies:
NKDA
Height / Weight:
Height 5 ft 11 in
Actual Weight 89.857 kg
Pertinent Past Medical History: PAD, DM 2, L. AKA
- Vital Signs / Lab Results
Temp Pulse Resp BP Pulse Ox
98.2 F 83 18 110/55 97
02/18/25 11:00 02/18/25 11:00 02/18/25 11:00 02/18/25 11:00 02/18/25 11:00
Lab Results - Hematology
02/16/25 02/17/25 02/17/25
05:26 07:31 15:23
WBC 7.0 8.3 11.2 H
02/18/25
06:20
WBC 12.1 H
Lab Results - Chemistry
02/16/25 02/17/25 02/18/25
05:26 07:31 06:20
BUN 21 H 18 18
Creatinine 1.9 H 1.9 H 1.7 H
Estimated Creat Clear 45 45 50
Albumin 3.1 L 3.3 L 3.2 L
Microbiology Results
02/14/25 15:19 Wound Culture - Preliminary
Foot - Right Staphylococcus simulans
Yeast
Gram Stain - Preliminary
02/16/25 14:21 Blood Culture - Preliminary
Blood/Venous No Growth in 24 hours- Final report to follow
02/16/25 13:52 Blood Culture - Preliminary
Blood/Venous No Growth in 24 hours- Final report to follow
02/13/25 18:57 Blood Culture - Preliminary
Blood/Venous Bacteroides fragilis
Gram Stain - Preliminary
02/13/25 18:57 Blood Culture - Preliminary
Blood/Venous Bacteroides fragilis
Gram Stain - Preliminary
Therapeutic Drug Monitoring
Random Vancomycin 14.8 ug/ml 02/17/25 07:31
[2025-02-18 15:06] VITALS: BP 123/67
--- NOTE | 2025-02-18 15:25 | W.PN.HOSP.TC ---
Addendum entered and electronically signed by Isabelle Power MD 02/18/25 17:00:
I saw and evaluated the patient independently. I reviewed and discussed the resident�s note and agree with findings and plan as documented by Dr. Owens.
GENERAL: well developed, well nourished, male in no apparent distress
HEENT:NC/AT- no O2 requirements
HEART: regular rate and rhythm, +S1, +S2
LUNGS : clear to auscultation bilaterally
ABDOM: soft, nontender, nondistended, + bowel sounds
EXT: no cyanosis, clubbing, or edema--left LE BKA and right TMA with dehiscence of the wound and dry gangrene--leg salvaged, post op dressing
NEUROLOGIC: nonfocal
Acute osteomyelitis with Bacteroides fragilis bacteremia secondary to poor transmetatarsal amputation site healing---repeat blood cultures negative--History of right transmetatarsal amputation with primary closure on 12/17--apprec podiatry, apprec
vascular--s/p limbflo salvage but may need BKA, pt now not amenable but vascular seems to have salvaged his leg--cont pain meds---cont vanco/zosyn for now---ESR, CRP both elevated--wound culture with Staph simulans and yeast--await ID for final abx
treatment--pt agreeable to SNF
Acute kidney injury--creatinine is still elevated at 1.9 from baseline 1.0 despite IVF--will stop--bladder scan patient (RN reports >1200 by scan, pt voided 1000, and post void 500)-- correa in place- hold lisinopril, HCTZ, amlodipine,
clonidine--creat with some improvement to 1.7--apprec renal input
Type 2 diabetes mellitus--holding dapagliflozin, metformin due to elevated creatinine of 1.9-- insulin sliding scale
PAD--History of balloon angioplasty of right proximal anterior tibial artery on 10/22/History of balloon angioplasty of the distal anterior tibial artery on 10/22/History of selective cannulization of the right posterior tibial artery with limited
balloon angioplasty on 12/17-- Continue aspirin--apprec vascular input
Anemia of chronic disease--His hemoglobin normally sits around 7.5 to 9--Will transfuse 1 unit of blood if hemoglobin is less than 7-- No symptoms of an acute bleed such as tachycardia, shortness of breath, fatigue, pallor, cool skin.
Essential hypertension--holding amlodipine, hydralazine, hydrochlorothiazide, lisinopril
Hyperlipidemia--confirm meds
Obesity--affects all aspects of care
code status--Full code
DVT proph--�heparin
Original Note:
Today's Communication/Plan
-
- f/u ID recc
Assessment / Plan
Assessment / Plan
Acute osteomyelitis secondary to poor transmetatarsal amputation site healing
- History of right transmetatarsal amputation with primary closure on 12/17
- Physical examination shows complete right metatarsal amputation with complete wound dehiscence, purulent drainage, and dry necrotic edges
- Foot xray on 02/13/25 shows acute osteomyelitis of the 1st through 5th metatarsal shafts most pronounced in 1st shaft
- Continue empiric Vancomycin and Zosyn as blood cultures show bacteroides fragilis as per infectious disease recc, follow up blood cultures negative
- ID the yeast - before finalizing a home regimen, for now continue micafungin pending ID of the yeast, as per ID
- limflow with debridement of TMA on 02/17/25, post operative report states Excellent TADV Doppler signals as per ID, follow up scheduled
- ESR is 113 and C-reactive protein is 125 which are helpful for long-term monitoring
- Percocet for mild and moderate pain, and Dilaudid 0.25 q4h for severe pain
- PT/OT ordered
Pre renal Acute kidney injury:
- Today his creatinine is 1.7 from 1.9
- discontinue iv fluids as this is not pre-renal LINDY because patient is eating and drinking well, has received IV fluids for over 3 days, and BUN/Cr is less than 20.
- Bladder scan shows urinary retention as volume is greater than 400 ml. Correa cath order placed.
- Urine studies shows FeNa of 1.9 which is indeterminate. His UA shows urine glucose of 4+, few urine yeast, many bacteria, and wbc of 6-10 which i suspect is a diabetic nephropathy with possible early UTI. Urine culture ordered.
- consulted nephro.
- Restarted amlodipine and clonidine
- hold lisinopril, HCTZ
Type 2 diabetes mellitus:
- Today his glucose is 118 and well-controlled
- Hold dapagliflozin, metformin due to elevated creatinine of 1.9
- Presently patient should continue on insulin sliding scale
PAD
History of balloon angioplasty of right proximal anterior tibial artery on 10/22
History of balloon angioplasty of the distal anterior tibial artery on 10/22
History of selective cannulization of the right posterior tibial artery with limited balloon angioplasty on 12/17
- Continue aspirin
Anemia of chronic disease
-His hemoglobin normally sits around 7.5-9
- Hemoglobin 8.9. Will transfuse 1 unit of blood if hemoglobin is less than 7.
- Ordered a type and screen
- No symptoms of an acute bleed such as tachycardia, shortness of breath, fatigue, pallor, cool skin.
Essential hypertension
- - Restarted amlodipine and clonidine
Hyperlipidemia
- continue his atorvastatin
Glaucoma of left eye:
- Continue brimonidine, timolol
Obesity
Full code
DVT prophylaxis�heparin
Regular diet
Anticipated Discharge: 24 - 48 hours
Subjective/Interval History
-
Date of Service: February 18, 2025
No overnight events
No pain, No headache, fever, chills, nausea, diarrhea, vomiting, abdominal pain, altered mental status, diaphoresis.
Objective Data
-
Labs:
Laboratory Results
02/18/25
06:20
WBC 12.1 H
Hgb 8.8 L
Hct 27.8 L
Plt Count 457 H
Sodium 133 L
Potassium 3.8
Chloride 105
Carbon Dioxide 21 L
BUN 18
Creatinine 1.7 H
Glucose 101 H
Calcium 8.9
Total Bilirubin 0.4
AST 20
ALT 33
Alkaline Phosphatase 110
Vital Signs:
Vital Signs
Temp Pulse Resp BP Pulse Ox
98.2 F 83 18 110/55 97
02/18/25 11:00 02/18/25 11:00 02/18/25 11:00 02/18/25 11:00 02/18/25 11:00
I&O
02/17/25 02/18/25 02/19/25
06:59 06:59 06:59
Intake Total 2980 / 2980 2034 / 2034
Output Total 4800 / 4800 3325 / 3325
Balance -1820 / -1820 -1290 / -1290
Review of Systems
-
History Source: Patient
All other systems: Reviewed and negative
Physical Exam
-
General: Well Developed
Respiratory: Clear to Auscultation
Cardiac: Regular Rhythm and S1/S2
GI: Soft, Nontender, Nondistended and Normal Bowel Sounds
Genito-urinary: Correa
Musculoskeletal: Other (Left lower extremity BKA. Amputation of all digits of right foot. Right foot TMA site with dry necrotic edges, serous drainage , no foul odor, wound dehiscence at the TMA site.)
Neuro: AO x 3
Psych: Calm
Data Reviewed
-
Labs: Labs Reviewed by me and Discussed with Physician
--- NOTE | 2025-02-18 15:29 | W.CON.NEPH ---
Consultation
-
Date/Time Consultation Requested: February 18, 2025 at 3 PM
Date/Time Consultation Performed: February 18, 2025 at 3:30 PM
Requesting Provider: Isabelle Power MD
Performing Provider: Dr. Tubbs
Reason for Consultation: Acute kidney injury
Medical History
-
Chief Complaint: Acute kidney injury
History of Present Illness:
59-year-old with past medical history of zud-khpkczg-gswtdpjva diabetes, hypertension and hyperlipidemia diabetic retinopathy who has significant peripheral artery disease with previous interventions in the past including lower extremity bypass
right partial hallux amputation resection of the proximal phalanx and metatarsal status post osteomyelitis. Presents to [facility] on this occasion with foot pain worsening who underwent left BKA for a nonhealing right TMA site and is
postop day #1.
Renal consultation was requested for acute kidney injury with a creatinine of 1.9 on admission from 0.9 in December. December admission he did have mild acute kidney injury creatinine went up to 1.6 but improved.
He has had relative hypotension in the 90s systolic.
His family was at the bedside help provide history. His son inform me that at home prior to admission his urine was very dark. He currently has a Bustamante catheter and had some residual urine retention of about 500 cc and therefore Bustamante catheter
placed
He has gotten IV fluids totaling of about 15 L including medications etc. and his put out 12 L with a positive balance of 2.3 L. Total output from the Bustamante catheter was 5.9 L and 6.8 L voided.
antibiotics since admission including vancomycin random levels have been checked with the highest of 19
Past Medical History
Past medical history of gfo-tvmhkzm-ghavomksf diabetes, hypertension and hyperlipidemia
Social History
Tobacco: Non-Smoker
Alcohol: None
Family History
Family History: Not Pertinent
Allergies / Home Medications
Allergy/AdvReac Type Severity Reaction Status Date / Time
No Known Allergies Allergy Verified 02/13/25 17:36
�Medication �Instructions �Recorded �Confirmed �Type
rosuvastatin 20 mg tablet 20 mg PO DAILY High cholesterol 30 09/14/24 02/15/25 Rx
days #30 tabs
clonidine HCl 0.1 mg tablet 0.1 mg PO DAILY Blood pressure 30 09/15/24 02/15/25 Rx
days #30 tabs
dapagliflozin propanediol 10 mg 10 mg PO DAILY Diabetes 30 days 09/15/24 02/15/25 Rx
tablet #30 tabs
hydrochlorothiazide 25 mg tablet 25 mg PO DAILY Fluid 10/18/24 02/15/25 History
Retention/Swelling
lisinopril 40 mg tablet 40 mg PO DAILY Blood pressure 10/21/24 02/15/25 History
amlodipine 10 mg tablet (Norvasc) 10 mg PO DAILY Blood Pressure 12/03/24 02/15/25 History
metformin 750 mg tablet,extended 750 mg PO DAILY Diabetes 12/03/24 02/15/25 History
release 24 hr
acetazolamide 250 mg tablet 500 mg PO BID Fluid 02/13/25 02/15/25 History
Retention/Swelling
atropine 1 % eye drops 1 drp LEFT EYE BID Eye Condition 02/13/25 02/15/25 History
brimonidine 0.2 % eye drops 1 drp LEFT EYE BID Eye Condition 02/13/25 02/15/25 History
collagenase clostridium histo. 250 1 applic topical DAILY Autoimmune 02/13/25 02/15/25 History
unit/gram topical ointment (Santyl) Disorder
dorzolamide 22.3 mg-timolol 6.8 1 drp LEFT EYE BID Eye Condition 02/13/25 02/15/25 History
mg/mL eye drops
ferrous fumarate 324 mg (106 mg 324 mg PO Q48H Supplement 02/13/25 02/15/25 History
iron) tablet
gabapentin 300 mg capsule 600 mg PO TID Neurological 02/13/25 02/15/25 History
Condition
hydralazine 50 mg tablet 50 mg PO TID Blood Pressure 02/13/25 02/15/25 History
oxycodone-acetaminophen 5 mg-325 2 tab PO Q6HPRN PRN moderate pain 02/13/25 02/15/25 History
mg tablet
prednisolone acetate 1 % eye 1 drp LEFT EYE QID Eye Condition 02/13/25 02/15/25 History
drops,suspension
semaglutide 0.25 mg or 0.5 mg (2 0.5 mg SC WEEKLY Diabetes 02/13/25 02/15/25 History
mg/3 mL) subcutaneous pen injector
(Ozempic)
sumatriptan succinate 25 mg tablet 25 mg PO Q2HPRN PRN headache 02/13/25 02/15/25 History
aspirin 81 mg chewable tablet 81 mg PO DAILY Heart 02/14/25 02/15/25 History
Disease/Condition
Review of Systems
-
No chest pain or shortness of breath. Eating is improved
All other systems: Negative unless noted
Physical Exam
Vital Signs
Vital Signs
Temp Pulse Resp BP Pulse Ox
98.2 F 83 18 110/55 97
02/18/25 11:00 02/18/25 11:00 02/18/25 11:00 02/18/25 11:00 02/18/25 11:00
Lab Results
WBC 12.1 10^3/uL (4.8-10.8) H 02/18/25 06:20
RBC 3.13 10^6/uL (4.70-6.10) L 02/18/25 06:20
Hgb 8.8 g/dL (13.0-18.0) L 02/18/25 06:20
Hct 27.8 % (39.0-52.0) L 02/18/25 06:20
Plt Count 457 10^3/uL (130-400) H 02/18/25 06:20
Sodium 133 mmol/L (135-145) L 02/18/25 06:20
Potassium 3.8 mmol/L (3.5-5.1) 02/18/25 06:20
Chloride 105 mmol/L (98-107) 02/18/25 06:20
Carbon Dioxide 21 mmol/L (22-30) L 02/18/25 06:20
BUN 18 mg/dl (9-20) 02/18/25 06:20
Creatinine 1.7 mg/dL (0.7-1.3) H 02/18/25 06:20
eGFR 46.15 02/18/25 06:20
Glucose 101 mg/dl (70-99) H 02/18/25 06:20
Calcium 8.9 mg/dl (8.4-10.2) 02/18/25 06:20
Albumin 3.2 g/dl (3.5-5.0) L 02/18/25 06:20
Physical Exam
General no acute distress
HEENT no cephalic atraumaticno JVD neck supple
lungs clear to auscultation bilateral
heart regular S1-S2 positive
abdomen soft nontender positive bowel sounds
extremities BKA
Neurologically nonfocal alert and oriented x 3
Skin no lesions no abrasions no petechiae
Psych normal affect no bizarre behavior
Data Reviewed
-
Radiology: Image Personally Visualized and interpreted
Labs: Labs Reviewed by me, Discussed with Physician, Discussed with Patient and Discussed with Family
Assessment/Plan
-
59-year-old with past medical history of oqu-peudvpj-bfhejgmax diabetes, hypertension and hyperlipidemia diabetic retinopathy who has significant peripheral artery disease with previous interventions in the past including lower extremity bypass
right partial hallux amputation resection of the proximal phalanx and metatarsal status post osteomyelitis. Presents to [facility] on this occasion with foot pain worsening who underwent left BKA for a nonhealing right TMA site and is
postop day #1.
Renal consultation was requested for acute kidney injury with a creatinine of 1.9 on admission from 0.9 in December. December admission he did have mild acute kidney injury creatinine went up to 1.6 but improved.
He has had relative hypotension in the 90s systolic.
His family was at the bedside help provide history. His son inform me that at home prior to admission his urine was very dark. He currently has a Bustamante catheter and had some residual urine retention of about 500 cc and therefore Bustamante catheter
placed
He has gotten IV fluids totaling of about 15 L including medications etc. and his put out 12 L with a positive balance of 2.3 L. Total output from the Bustamante catheter was 5.9 L and 6.8 L voided.
antibiotics since admission including vancomycin random levels have been checked with the highest of 19
Impression.
Acute kidney injury creatinine 1.9 secondary to hemodynamics and hypotension. Representing possible ATN early. Moderate urinary retention may have contributed but creatinine improved since placing Bustamante catheter. He has not gotten any IV contrast
while inpatient/Vanco levels seem
PAD/osteo status post BKA
Diabetes. Uncontrolled hemoglobin A1c is as high as 10.4> diabetic for 18 years with diabetic retinopathy
Hypertension now with hypotension
Mild hyponatremia 133
Plan.
Renal dose all medications appropriately for diminished GFR
Proteinuria secondary to longstanding diabetes.
Urinalysis 02/16 no red blood cells with 6-10 white blood cells and urine sodium 54.
No indication for IV fluids at this time as he has put 3.5 L out in the last 24 hours.
I suspect he is turning the corner with better blood pressures and relief of moderate urinary retention of about 500.
He is on SGLT2 inhibitor outpatient continue to hold as well as hydrochlorothiazide metformin and lisinopril
Gabapentin at 300 mg 3 times daily okay for now at current GFR
AM labs
Maintain Bustamante catheter
[2025-02-18 16:23] LABS: Glucose - Point of Care 165 mg/dl (70-99)
[2025-02-18] MEDS: NOVOLOG FLEXPEN-LOW RESISTANCE 1 UNITS SC (16:43)
[2025-02-18 16:54] LABS: Urine Character Slightly Cloudy (Clear)
[2025-02-18] MEDS: MYCAMINE 105 MG IV (16:54)
--- NOTE | 2025-02-18 16:57 | CM ---
Patient seen at bedside with physicians on [address]. Patient mother and son in room. Patient plan is for SNF when medically appropriate; [facility] or [facility] requested. CM will continue to follow for discharge planning needs.
Plan; referrals sent to SNF options
[2025-02-18 19:27] LABS: Urine White Cell 21-25 /HPF (0-5)
--- NOTE | 2025-02-18 20:30 | PTCARENOTE ---
Pt transferred to from IMU via wheelchair. Pt A&Ox3. VSS. Neurovascular check within normal limits. Pt oriented to unit and room. Call walker within reach.
[2025-02-18 22:20] LABS: Glucose - Point of Care 127 mg/dl (70-99)
[2025-02-18 23:39] VITALS: BP 120/57
[2025-02-19] MEDS: ZOSYN 50 IV ×4 (02:51→20:38)
[2025-02-19 07:00] VITALS: BP 154/80
[2025-02-19 07:52] LABS: Glucose - Point of Care 80 mg/dl (70-99)
[2025-02-19 08:05] LABS: Hematocrit 26.9 % (39.0-52.0); Hemoglobin 8.5 g/dL (13.0-18.0); Mean Corp Hgb Conc. 31.6 g/dL (33.0-37.0); Mean Corpuscular Volume 90.3 fL (80.0-94.0); Nucleated Red Blood Cells % 0 % (-); Platelet Count 433 10^3/uL (130-400); Red Cell Dist. Width 17.0 % (11.5-14.5)
[2025-02-19 08:45] LABS: ALT (SGPT) 34 U/L (0-50); AST (SGOT) 22 U/L (17-59); Albumin 3.1 g/dl (3.5-5.0); Alkaline Phosphatase 104 U/L (38-126); Blood Urea Nitrogen 19 mg/dl (9-20); Calcium 9.2 mg/dl (8.4-10.2); Carbon Dioxide 23 mmol/L (22-30); Chloride 107 mmol/L (98-107); Estimated Creatinine Clearance 50 ml/min; Glucose 73 mg/dl (70-99); Magnesium 2.0 mg/dl (1.6-2.3); Potassium 3.6 mmol/L (3.5-5.1); Sodium 139 mmol/L (135-145); Total Protein 5.8 g/dl (6.3-8.2); eGFR 46.15
[2025-02-19] MEDS: NOVOLOG FLEXPEN-LOW RESISTANCE SC ×2 (08:45→12:43)
[2025-02-19] MEDS: NEURONTIN 300 MG PO ×3 (08:46→22:15)
[2025-02-19] MEDS: HEPARIN 5000 UNITS SC ×2 (08:46→20:36)
[2025-02-19] MEDS: CATAPRES 0.1 MG PO (08:47)
[2025-02-19] MEDS: MIRALAX 17 GRAMS PO (08:48)
[2025-02-19] MEDS: LOW STRENGTH ASPIRIN 81 MG PO (08:48)
[2025-02-19] MEDS: CRESTOR 20 MG PO (08:49)
[2025-02-19] MEDS: TRUSOPT 2% OPHTHALMIC SOLUTION 1 DROP LEFT EYE ×2 (08:58→20:37)
[2025-02-19] MEDS: ATROPINE SULFATE 1% DROPS 1 DROP LEFT EYE ×2 (08:58→20:37)
[2025-02-19] MEDS: ALPHAGAN 0.2% EYE DROPS 1 DROP LEFT EYE ×2 (08:59→20:37)
[2025-02-19] MEDS: PRED FORTE 1% EYE DROPS 1 DROP LEFT EYE ×4 (08:59→22:16)
[2025-02-19] MEDS: TIMOPTIC 0.5% OPHTHALMIC SOLUTION 1 DROP LEFT EYE ×2 (08:59→20:37)
[2025-02-19] MEDS: EFFIENT 10 MG PO (09:23)
--- NOTE | 2025-02-19 10:44 | PHA.VAN.FU ---
Vancomycin Assessment / Plan
- Assessment
Renal Function: SCR Decreasing
WBC's are: Trending Down
In the past 24 hrs, patient has been: Afebrile
Concomitant Antimicrobials: Piperacillin-tazobactam; Micafungin
- Assessment - Therapeutic Drug Monitoring
Random Level: 15.1 ~46hrs post Vanc 1gm
- Dosing Plan
Continue: Dose by level
Dosing by Level: Hold off on dosing today
- Monitoring Plan
Random Level: 11/9 AM
- Follow Up
Pharmacy will continue to follow.
Vancomycin Follow UP
- -
Patient Age: 59
Patient Sex: Male
Vancomycin Day #: 7
Indication: Bone And Joint
Requesting Provider: Medardo / Sander
Pertinent Antimicrobial Allergies:
NKDA
Height / Weight:
Height 5 ft 11 in
Actual Weight 89.857 kg
Pertinent Past Medical History: PAD, DM 2, L. AKA
- Vital Signs / Lab Results
Temp Pulse Resp BP Pulse Ox
98.3 F 78 20 154/80 99
02/19/25 07:00 02/19/25 08:47 02/19/25 07:00 02/19/25 08:47 02/19/25 07:00
Lab Results - Hematology
02/17/25 02/17/25 02/18/25
07:31 15:23 06:20
WBC 8.3 11.2 H 12.1 H
02/19/25
07:49
WBC 9.9
Lab Results - Chemistry
02/17/25 02/18/25 02/19/25
07:31 06:20 07:49
BUN 18 18 19
Creatinine 1.9 H 1.7 H 1.7 H
Estimated Creat Clear 45 50 50
Albumin 3.3 L 3.2 L 3.1 L
Lab Results - Urine
02/18/25
16:30
Urine Nitrite (Reflex) Negative
Leukocyte Esterase Rfl Negative
Ur Squamous Epith Cells 6-10
Microbiology Results
02/16/25 14:21 Blood Culture - Preliminary
Blood/Venous No Growth in 48 hours- Final report to follow
02/16/25 13:52 Blood Culture - Preliminary
Blood/Venous No Growth in 48 hours- Final report to follow
02/14/25 15:19 Wound Culture - Preliminary
Foot - Right Staphylococcus simulans
Yeast
Gram Stain - Preliminary
02/13/25 18:57 Blood Culture - Preliminary
Blood/Venous Bacteroides fragilis
Gram Stain - Preliminary
Therapeutic Drug Monitoring
Random Vancomycin 15.1 ug/ml 02/19/25 07:49
[2025-02-19 12:01] LABS: Glucose - Point of Care 142 mg/dl (70-99)
--- NOTE | 2025-02-19 12:46 | W.PN.NEPH.PH ---
Today's Communication / Plan
-
AM lab
Okay with Bustamante removed follow postvoid residuals as an
Assessment/Plan
-
59-year-old with past medical history of pdw-pwylfxi-kpzlhxlny diabetes, hypertension and hyperlipidemia diabetic retinopathy who has significant peripheral artery disease with previous interventions in the past including lower extremity bypass
right partial hallux amputation resection of the proximal phalanx and metatarsal status post osteomyelitis. Presents to [facility] on this occasion with foot pain worsening who underwent left BKA for a nonhealing right TMA site and is
postop day #1.
Renal consultation was requested for acute kidney injury with a creatinine of 1.9 on admission from 0.9 in December. December admission he did have mild acute kidney injury creatinine went up to 1.6 but improved.
He has had relative hypotension in the 90s systolic.
His family was at the bedside help provide history. His son inform me that at home prior to admission his urine was very dark. He currently has a Bustamante catheter and had some residual urine retention of about 500 cc and therefore Bustamante catheter
placed
He has gotten IV fluids totaling of about 15 L including medications etc. and his put out 12 L with a positive balance of 2.3 L. Total output from the Bustamante catheter was 5.9 L and 6.8 L voided.
antibiotics since admission including vancomycin random levels have been checked with the highest of 19
Impression.
Acute kidney injury creatinine 1.9 secondary to hemodynamics and hypotension. Representing possible ATN early. Moderate urinary retention may have contributed but creatinine improved since placing Bustamante catheter. He has not gotten any IV contrast
while inpatient/Vanco levels seem
PAD/osteo status post BKA
Diabetes. Uncontrolled hemoglobin A1c is as high as 10.4> diabetic for 18 years with diabetic retinopathy
Hypertension now with hypotension
Mild hyponatremia 133
Plan.
Renal dose all medications appropriately for diminished GFR
Proteinuria secondary to longstanding diabetes.
Urinalysis 02/16 no red blood cells with 6-10 white blood cells and urine sodium 54.
No indication for IV fluids
Bustamante catheter removed monitor output
He is on SGLT2 inhibitor outpatient continue to hold as well as hydrochlorothiazide metformin and lisinopril= I suspect will be able to restart as long as the creatinine remains at a steady state
Gabapentin at 300 mg 3 times daily okay for now at current GFR
AM labs
A.m. labs
Discussed with Dr. Power
-
-
Date of Service: February 19, 2025
CC / HPI / ROS
-
Chief Complaint:
Sepsis
History of Present Illness:
Patient presents with infection status post amputation and LINDY
Review of Systems:
No chest pain shortness of breath
Bustamante catheter removed
Labs
-
Labs:
WBC 9.9 10^3/uL (4.8-10.8) 02/19/25 07:49
RBC 2.98 10^6/uL (4.70-6.10) L 02/19/25 07:49
Hgb 8.5 g/dL (13.0-18.0) L 02/19/25 07:49
Hct 26.9 % (39.0-52.0) L 02/19/25 07:49
Plt Count 433 10^3/uL (130-400) H 02/19/25 07:49
Sodium 139 mmol/L (135-145) 02/19/25 07:49
Potassium 3.6 mmol/L (3.5-5.1) 02/19/25 07:49
Chloride 107 mmol/L (98-107) 02/19/25 07:49
Carbon Dioxide 23 mmol/L (22-30) 02/19/25 07:49
BUN 19 mg/dl (9-20) 02/19/25 07:49
Creatinine 1.7 mg/dL (0.7-1.3) H 02/19/25 07:49
eGFR 46.15 02/19/25 07:49
Glucose 73 mg/dl (70-99) 02/19/25 07:49
Calcium 9.2 mg/dl (8.4-10.2) 02/19/25 07:49
Albumin 3.1 g/dl (3.5-5.0) L 02/19/25 07:49
Physical Exam
-
Vital Signs:
Vital Signs
Temp Pulse Resp BP Pulse Ox
98.3 F 78 20 154/80 99
02/19/25 07:00 02/19/25 08:47 02/19/25 07:00 02/19/25 08:47 02/19/25 07:00
Respiratory:: Bilateral: CTA
Lung Excursion:: Normal
Abdomen:: Soft
Bowel Sounds:: Normal
Extremity Edema:: None: Bilateral:
--- NOTE | 2025-02-19 14:49 | W.PN.HOSP.TC ---
Addendum entered and electronically signed by Isabelle Power MD 02/19/25 15:25:
I saw and evaluated the patient independently. I reviewed and discussed the resident�s note and agree with findings and plan as documented by Dr. Owens.
GENERAL: well developed, well nourished, male in no apparent distress
HEENT: NC/AT- no O2 requirements
HEART: regular rate and rhythm, +S1, +S2
LUNGS : clear to auscultation bilaterally
ABDOM: soft, nontender, nondistended, + bowel sounds
EXT: no cyanosis, clubbing, or edema--left LE BKA and right TMA with dehiscence of the wound and dry gangrene--leg salvaged, post op dressing
NEUROLOGIC: nonfocal
Acute osteomyelitis with Staph simulans and Pavithra lusitaniae positive wound cultures secondary to poor transmetatarsal amputation site healing----History of right transmetatarsal amputation with primary closure on 12/17--apprec podiatry, apprec
vascular--s/p limbflo salvage but may need BKA, pt now not amenable but vascular seems to have salvaged his leg--cont pain meds---cont vanco/zosyn for now---ESR, CRP both elevated--await ID for final abx treatment--pt agreeable to SNF
Acute kidney injury--creatinine is coming down from 1.9 to 1.7 but baseline 1.0--bladder scan showed retention (RN reported >1200 by scan, pt voided 1000, and post void 500)--now s/p correa -- hold lisinopril, HCTZ, amlodipine, clonidine--apprec
renal input
Bacteroides fragilis bacteremia---repeat blood cultures negative--? from urinary source--await urine culture
Type 2 diabetes mellitus--holding dapagliflozin, metformin due to elevated creatinine of 1.7-- insulin sliding scale
PAD--History of balloon angioplasty of right proximal anterior tibial artery on 10/22/History of balloon angioplasty of the distal anterior tibial artery on 10/22/History of selective cannulization of the right posterior tibial artery with limited
balloon angioplasty on 12/17-- Continue aspirin--apprec vascular input
Anemia of chronic disease--His hemoglobin normally sits around 7.5 to 9--Will transfuse 1 unit of blood if hemoglobin is less than 7-- No symptoms .
Essential hypertension--holding amlodipine, hydralazine, hydrochlorothiazide, lisinopril
Hyperlipidemia--cont rosuvastatin
Obesity--affects all aspects of care
code status--Full code
DVT proph--�heparin
Original Note:
Today's Communication/Plan
-
- f/u ID recc
Assessment / Plan
Assessment / Plan
Acute osteomyelitis secondary to unknown source:
- History of right transmetatarsal amputation with primary closure on 12/17
- Physical examination shows complete right metatarsal amputation with complete wound dehiscence, purulent drainage, and dry necrotic edges
- Foot xray on 02/13/25 shows acute osteomyelitis of the 1st through 5th metatarsal shafts most pronounced in 1st shaft
- Continue empiric Vancomycin and Zosyn , blood cultures show bacteroides fragilis but repeat blood cultures negative, wound culture shows staph simulans and yeast, urine culture still pending, awaiting
an Id of yeast - before finalizing a home regimen, for now continue micafungin pending ID of the yeast, as per ID
- limflow with debridement of TMA on 02/17/25, post operative report states Excellent TADV Doppler signals as per ID, follow up scheduled
- ESR is 113 and C-reactive protein is 125 which are helpful for long-term monitoring
- Percocet for mild and moderate pain, and Dilaudid 0.25 q4h for severe pain
- PT/OT ordered suggest SNF
- patient will need 6 week course of outpatient Iv antibiotics
Pre renal Acute kidney injury:
- Today his creatinine is 1.7 from 1.9
- discontinue iv fluids as this is not pre-renal LINDY because patient is eating and drinking well, has received IV fluids for over 3 days, and BUN/Cr is less than 20.
- Bladder scan shows urinary retention as volume is greater than 400 ml. Correa cath order placed.
- Urine studies shows FeNa of 1.9 which is indeterminate. His UA shows urine glucose of 4+, few urine yeast, many bacteria, and wbc of 6-10 which i suspect is a diabetic nephropathy with possible early UTI. Urine culture ordered.
- consulted nephro.
- Restarted amlodipine and clonidine
- hold lisinopril, HCTZ, SGLT2
- correa removed today in AM monitor urine output.
Type 2 diabetes mellitus:
- Today his glucose is 118 and well-controlled
- Hold dapagliflozin, metformin due to elevated creatinine of 1.9
- Presently patient should continue on insulin sliding scale
PAD
History of balloon angioplasty of right proximal anterior tibial artery on 10/22
History of balloon angioplasty of the distal anterior tibial artery on 10/22
History of selective cannulization of the right posterior tibial artery with limited balloon angioplasty on 12/17
- Continue aspirin
Anemia of chronic disease
-His hemoglobin normally sits around 7.5-9
- Hemoglobin 8.9. Will transfuse 1 unit of blood if hemoglobin is less than 7.
- Ordered a type and screen
- No symptoms of an acute bleed such as tachycardia, shortness of breath, fatigue, pallor, cool skin.
Essential hypertension
- - Restarted amlodipine and clonidine
Hyperlipidemia
- continue his atorvastatin
Glaucoma of left eye:
- Continue brimonidine, timolol
Obesity
Full code
DVT prophylaxis�heparin
Regular diet
Anticipated Discharge: 24 - 48 hours
Subjective/Interval History
-
Date of Service: February 19, 2025
No overnight events
No pain, No headache, fever, chills, nausea, diarrhea, vomiting, abdominal pain, altered mental status, diaphoresis.
Correa taken out today.
Objective Data
-
Labs:
Laboratory Results
02/19/25
07:49
WBC 9.9
Hgb 8.5 L
Hct 26.9 L
Plt Count 433 H
Sodium 139
Potassium 3.6
Chloride 107
Carbon Dioxide 23
BUN 19
Creatinine 1.7 H
Glucose 73
Calcium 9.2
Total Bilirubin 0.2
AST 22
ALT 34
Alkaline Phosphatase 104
Vital Signs:
Vital Signs
Temp Pulse Resp BP Pulse Ox
98.3 F 78 20 154/80 99
02/19/25 07:00 02/19/25 08:47 02/19/25 07:00 02/19/25 08:47 02/19/25 07:00
I&O
02/18/25 02/19/25 02/20/25
06:59 06:59 06:59
Intake Total 2035 / 2035 2880 / 2880 50 / 50
Output Total 3325 / 3325 2100 / 2100 400 / 400
Balance -1290 / -1290 780 / 780 -350 / -350
Review of Systems
-
History Source: Patient
All other systems: Reviewed and negative
Physical Exam
-
General: Well Developed
Respiratory: Clear to Auscultation
Cardiac: Regular Rhythm and S1/S2
GI: Soft, Nontender, Nondistended and Normal Bowel Sounds
Musculoskeletal: Other (Left lower extremity BKA. Amputation of all digits of right foot. Right foot TMA site with dry necrotic edges, serous drainage , no foul odor, wound dehiscence at the TMA site.)
Neuro: AO x 3
Psych: Calm
Data Reviewed
-
Labs: Labs Reviewed by me and Discussed with Physician
[2025-02-19 15:10] VITALS: BP 94/66
[2025-02-19] MEDS: PERCOCET 5/325 2 TABLET PO ×2 (15:26→22:19)
[2025-02-19 15:31] VITALS: BP 107/68; PULSE 78; O2SAT 98
[2025-02-19 16:59] LABS: Glucose - Point of Care 167 mg/dl (70-99)
[2025-02-19] MEDS: NOVOLOG FLEXPEN-LOW RESISTANCE 1 UNITS SC (18:12)
[2025-02-19] MEDS: MYCAMINE 105 MG IV (18:12)
[2025-02-19] MEDS: FLUSH (NSS) 2 FLUSH IV (20:38)
[2025-02-19 21:24] LABS: Glucose - Point of Care 150 mg/dl (70-99)
[2025-02-19 23:23] VITALS: BP 120/69
[2025-02-20] MEDS: ZOSYN 50 IV ×4 (01:47→20:23)
[2025-02-20] MEDS: FLUSH (NSS) 2 FLUSH IV (01:47)
[2025-02-20 07:57] LABS: Hematocrit 23.4 % (39.0-52.0); Hemoglobin 7.4 g/dL (13.0-18.0); Mean Corp Hgb Conc. 31.6 g/dL (33.0-37.0); Mean Corpuscular Volume 89.0 fL (80.0-94.0); Nucleated Red Blood Cells % 0 % (-); Platelet Count 393 10^3/uL (130-400); Red Cell Dist. Width 17.1 % (11.5-14.5)
[2025-02-20 08:13] VITALS: BP 136/69
[2025-02-20 08:13] LABS: Glucose - Point of Care 121 mg/dl (70-99)
[2025-02-20] MEDS: NOVOLOG FLEXPEN-LOW RESISTANCE SC (09:14)
[2025-02-20] MEDS: CATAPRES 0.1 MG PO (09:15)
[2025-02-20] MEDS: ATROPINE SULFATE 1% DROPS 1 DROP LEFT EYE ×2 (09:15→20:24)
[2025-02-20] MEDS: PRED FORTE 1% EYE DROPS 1 DROP LEFT EYE ×4 (09:15→21:30)
[2025-02-20] MEDS: EFFIENT 10 MG PO (09:15)
[2025-02-20] MEDS: MIRALAX 17 GRAMS PO (09:15)
[2025-02-20] MEDS: CRESTOR 20 MG PO (09:16)
[2025-02-20] MEDS: TRUSOPT 2% OPHTHALMIC SOLUTION 1 DROP LEFT EYE ×2 (09:16→20:24)
[2025-02-20] MEDS: ALPHAGAN 0.2% EYE DROPS 1 DROP LEFT EYE ×2 (09:16→20:25)
[2025-02-20] MEDS: HEPARIN 5000 UNITS SC ×2 (09:16→20:23)
[2025-02-20] MEDS: NEURONTIN 300 MG PO ×3 (09:16→21:30)
[2025-02-20] MEDS: FEOSOL 325 MG PO (09:17)
[2025-02-20] MEDS: TIMOPTIC 0.5% OPHTHALMIC SOLUTION 1 DROP LEFT EYE ×2 (09:17→20:25)
[2025-02-20] MEDS: LOW STRENGTH ASPIRIN 81 MG PO (09:17)
[2025-02-20 09:18] LABS: ALT (SGPT) 42 U/L (0-50); AST (SGOT) 29 U/L (17-59); Albumin 2.8 g/dl (3.5-5.0); Alkaline Phosphatase 101 U/L (38-126); Blood Urea Nitrogen 21 mg/dl (9-20); Calcium 9.0 mg/dl (8.4-10.2); Carbon Dioxide 24 mmol/L (22-30); Chloride 107 mmol/L (98-107); Estimated Creatinine Clearance 57 ml/min; Glucose 104 mg/dl (70-99); Magnesium 1.9 mg/dl (1.6-2.3); Sodium 137 mmol/L (135-145); Total Protein 5.5 g/dl (6.3-8.2); eGFR 53.63
[2025-02-20 09:48] LABS: Potassium 3.8 mmol/L (3.5-5.1)
[2025-02-20] MEDS: VANCOCIN 200 IV (10:31)
--- NOTE | 2025-02-20 10:36 | PHA.VAN.FU ---
Vancomycin Assessment / Plan
- Assessment
Renal Function: SCR Decreasing
WBC's are: Trending Down
In the past 24 hrs, patient has been: Afebrile
Concomitant Antimicrobials: Piperacillin-tazobactam; Micafungin
- Assessment - Therapeutic Drug Monitoring
Random Level: 10.9 ~ 69hrs post Vanc 1gm
- Dosing Plan
Continue: Dose by level
Dosing by Level: Re-dose today (Vanc 1gm at 1030 today)
- Monitoring Plan
Peak Level: 02/20 at 1330
Random Level: 02/21 at 0530
- Follow Up
Pharmacy will continue to follow.
Vancomycin Follow UP
- -
Patient Age: 59
Patient Sex: Male
Vancomycin Day #: 8
Indication: [facility]
Requesting Provider: Medardo / Sander
Pertinent Antimicrobial Allergies:
NKDA
Height / Weight:
Height 5 ft 11 in
Actual Weight 89.857 kg
Pertinent Past Medical History: PAD, DM 2, L. AKA
- Vital Signs / Lab Results
Temp Pulse Resp BP Pulse Ox
97.6 F 70 16 136/69 99
02/20/25 08:13 02/20/25 09:15 02/20/25 08:13 02/20/25 09:15 02/20/25 08:13
Lab Results - Hematology
02/17/25 02/18/25 02/19/25
15:23 06:20 07:49
WBC 11.2 H 12.1 H 9.9
02/20/25
07:13
WBC 7.8
Lab Results - Chemistry
02/18/25 02/19/25 02/20/25
06:20 07:49 07:13
BUN 18 19 21 H
Creatinine 1.7 H 1.7 H 1.5 H
Estimated Creat Clear 50 50 57
Albumin 3.2 L 3.1 L 2.8 L
Microbiology Results
02/13/25 18:57 Blood Culture - Final
Blood/Venous Bacteroides fragilis
Gram Stain - Final
02/13/25 18:57 Blood Culture - Final
Blood/Venous Bacteroides fragilis
Gram Stain - Final
02/16/25 14:21 Blood Culture - Preliminary
Blood/Venous No Growth in 72 hours- Final report to follow
02/16/25 13:52 Blood Culture - Preliminary
Blood/Venous No Growth in 72 hours- Final report to follow
02/14/25 15:19 Wound Culture - Final
Foot - Right Staphylococcus simulans
Pavithra lusitaniae
Gram Stain - Final
02/18/25 16:30 Urine Culture - Final
Urine NO GROWTH
Therapeutic Drug Monitoring
Random Vancomycin 10.9 ug/ml 02/20/25 07:12
[2025-02-20 12:23] LABS: Glucose - Point of Care 192 mg/dl (70-99)
--- NOTE | 2025-02-20 13:42 | W.PN.NEPH.PH ---
Today's Communication / Plan
-
am labs
Assessment/Plan
-
59-year-old with past medical history of onb-aicrqjf-[id number] diabetes, hypertension and hyperlipidemia diabetic retinopathy who has significant peripheral artery disease with previous interventions in the past including lower extremity bypass
right partial hallux amputation resection of the proximal phalanx and metatarsal status post osteomyelitis. Presents to [facility] on this occasion with foot pain worsening who underwent left BKA for a nonhealing right TMA site and is
postop day #1.
Renal consultation was requested for acute kidney injury with a creatinine of 1.9 on admission from 0.9 in December. December admission he did have mild acute kidney injury creatinine went up to 1.6 but improved.
He has had relative hypotension in the 90s systolic.
His family was at the bedside help provide history. His son inform me that at home prior to admission his urine was very dark. He currently has a Bustamante catheter and had some residual urine retention of about 500 cc and therefore Bustamante catheter
placed
He has gotten IV fluids totaling of about 15 L including medications etc. and his put out 12 L with a positive balance of 2.3 L. Total output from the Bustamante catheter was 5.9 L and 6.8 L voided.
antibiotics since admission including vancomycin random levels have been checked with the highest of 19
Impression.
Acute kidney injury creatinine 1.9 secondary to hemodynamics and hypotension. Representing possible ATN early. Moderate urinary retention may have contributed but creatinine improved since placing Bustamante catheter. He has not gotten any IV contrast
while inpatient/Vanco levels seem
PAD/osteo status post BKA
Diabetes. Uncontrolled hemoglobin A1c is as high as 10.4> diabetic for 18 years with diabetic retinopathy
Hypertension now with hypotension
Mild hyponatremia 133
Plan.
Renal dose all medications appropriately for diminished GFR
Proteinuria secondary to longstanding diabetes.
Urinalysis 02/16 no red blood cells with 6-10 white blood cells and urine sodium 54.
No indication for IV fluids
Bustamante catheter removed monitor output
He is on SGLT2 inhibitor outpatient continue to hold as well as hydrochlorothiazide metformin and lisinopril= I suspect will be able to restart as long as the creatinine remains at a steady state
Gabapentin at 300 mg 3 times daily okay for now at current GFR
AM labs
A.m. labs
Discussed with Dr. Power
-
-
Date of Service: February 20, 2025
CC / HPI / ROS
-
Chief Complaint:
Sepsis
History of Present Illness:
Patient presents with infection status post amputation and LINDY
Review of Systems:
No chest pain shortness of breath
Bustamante catheter removed
Labs
-
Labs:
WBC 7.8 10^3/uL (4.8-10.8) 02/20/25 07:13
RBC 2.63 10^6/uL (4.70-6.10) L 02/20/25 07:13
Hgb 7.4 g/dL (13.0-18.0) L 02/20/25 07:13
Hct 23.4 % (39.0-52.0) L 02/20/25 07:13
Plt Count 393 10^3/uL (130-400) 02/20/25 07:13
Sodium 137 mmol/L (135-145) 02/20/25 07:13
Potassium 3.8 mmol/L (3.5-5.1) 02/20/25 07:13
Chloride 107 mmol/L (98-107) 02/20/25 07:13
Carbon Dioxide 24 mmol/L (22-30) 02/20/25 07:13
BUN 21 mg/dl (9-20) H 02/20/25 07:13
Creatinine 1.5 mg/dL (0.7-1.3) H 02/20/25 07:13
eGFR 53.63 02/20/25 07:13
Glucose 104 mg/dl (70-99) H 02/20/25 07:13
Calcium 9.0 mg/dl (8.4-10.2) 02/20/25 07:13
Albumin 2.8 g/dl (3.5-5.0) L 02/20/25 07:13
Physical Exam
-
Vital Signs:
Vital Signs
Temp Pulse Resp BP Pulse Ox
97.6 F 70 16 136/69 99
02/20/25 08:13 02/20/25 09:15 02/20/25 08:13 02/20/25 09:15 02/20/25 08:13
Respiratory:: Bilateral: CTA
Lung Excursion:: Normal
Abdomen:: Soft
Bowel Sounds:: Normal
Extremity Edema:: None: Bilateral:
--- NOTE | 2025-02-20 14:15 | W.PN.HOSP.TC ---
Addendum entered and electronically signed by Isabelle Power MD 02/20/25 14:39:
I saw and evaluated the patient independently. I reviewed and discussed the resident�s note and agree with findings and plan as documented by Dr. Owens.
GENERAL: well developed, well nourished, male in no apparent distress
HEENT: NC/AT- no O2 requirements
HEART: regular rate and rhythm, +S1, +S2
LUNGS : clear to auscultation bilaterally
ABDOM: soft, nontender, nondistended, + bowel sounds
EXT: no cyanosis, clubbing, or edema--left LE BKA and right TMA with dehiscence of the wound and dry gangrene--leg salvaged, post op dressing
NEUROLOGIC: nonfocal
Acute osteomyelitis with Staph simulans and Pavithra lusitaniae positive wound cultures secondary to poor transmetatarsal amputation site healing (right transmetatarsal amputation with primary closure on 12/17)--apprec podiatry, apprec vascular--s/p
limbflo salvage but may need BKA, pt not amenable but vascular seems to have salvaged his leg--cont pain meds---cont vanco/zosyn for now---ESR, CRP both elevated--await ID for final abx treatment, will need 6 weeks--pt agreeable to SNF
Acute kidney injury--creatinine is coming down from 1.9 to 1.5 (baseline 1.0)--bladder scan showed retention--now s/p correa -- hold lisinopril, HCTZ, amlodipine, clonidine--apprec renal input
Bacteroides fragilis bacteremia---repeat blood cultures negative-- ? source--urine culture negative
Type 2 diabetes mellitus--holding dapagliflozin, metformin due to elevated creatinine of 1.5-- insulin sliding scale
PAD--History of balloon angioplasty of right proximal anterior tibial artery on 10/22/History of balloon angioplasty of the distal anterior tibial artery on 10/22/History of selective cannulization of the right posterior tibial artery with limited
balloon angioplasty on 12/17-- Continue aspirin--apprec vascular input
Anemia of chronic disease--His hemoglobin normally sits around 7.5 to 9--Will transfuse 1 unit of blood if hemoglobin is less than 7-- No symptoms .
Essential hypertension--holding amlodipine, hydralazine, hydrochlorothiazide, lisinopril
Hyperlipidemia--cont rosuvastatin
Obesity--affects all aspects of care
code status--Full code
DVT proph--�heparin
Original Note:
Today's Communication/Plan
-
- f/u ID recc
Assessment / Plan
Assessment / Plan
Acute osteomyelitis secondary to unknown source:
- History of right transmetatarsal amputation with primary closure on 12/17
- Physical examination shows complete right metatarsal amputation with complete wound dehiscence, purulent drainage, and dry necrotic edges
- Foot xray on 02/13/25 shows acute osteomyelitis of the 1st through 5th metatarsal shafts most pronounced in 1st shaft
- Continue empiric Vancomycin and Zosyn , blood cultures show bacteroides fragilis but repeat blood cultures negative, wound culture shows staph simulans and yeast, urine culture still pending, awaiting
an Id of yeast - before finalizing a home regimen, for now continue micafungin pending ID of the yeast, as per ID
- limflow with debridement of TMA on 02/17/25, post operative report states Excellent TADV Doppler signals as per ID, follow up scheduled
- ESR is 113 and C-reactive protein is 125 which are helpful for long-term monitoring
- Percocet for mild and moderate pain, and Dilaudid 0.25 q4h for severe pain
- PT/OT ordered suggest SNF
- patient will need 6 week course of outpatient Iv antibiotics
Pre renal Acute kidney injury:
- Today his creatinine is 1.5 from 1.7, continue to observe
- discontinue iv fluids as this is not pre-renal LINDY because patient is eating and drinking well, has received IV fluids for over 3 days, and BUN/Cr is less than 20.
- Bladder scan shows urinary retention as volume is greater than 400 ml. Correa cath order placed.
- Urine studies shows FeNa of 1.9 which is indeterminate. His UA shows urine glucose of 4+, few urine yeast, many bacteria, and wbc of 6-10 which i suspect is a diabetic nephropathy with possible early UTI. Urine culture ordered.
- consulted nephro.
- Restarted amlodipine and clonidine
- hold lisinopril, HCTZ, SGLT2
Type 2 diabetes mellitus:
- Today his glucose is 118 and well-controlled
- Hold dapagliflozin, metformin due to elevated creatinine of 1.9
- Presently patient should continue on insulin sliding scale
PAD
History of balloon angioplasty of right proximal anterior tibial artery on 10/22
History of balloon angioplasty of the distal anterior tibial artery on 10/22
History of selective cannulization of the right posterior tibial artery with limited balloon angioplasty on 12/17
- Continue aspirin
Anemia of chronic disease
-His hemoglobin normally sits around 7.5-9
- Hemoglobin 7.4. will repeat H&H and Will transfuse 1 unit of blood if hemoglobin is less than 7.
- Ordered a type and screen
- No symptoms of an acute bleed such as tachycardia, shortness of breath, fatigue, pallor, cool skin.
Essential hypertension
- - Restarted amlodipine and clonidine
Hyperlipidemia
- continue his atorvastatin
Glaucoma of left eye:
- Continue brimonidine, timolol
Obesity
Full code
DVT prophylaxis�heparin
Regular diet
Anticipated Discharge: 24 - 48 hours
Subjective/Interval History
-
Date of Service: February 20, 2025
No overnight events
No pain, No headache, fever, chills, nausea, diarrhea, vomiting, abdominal pain, altered mental status, diaphoresis.
Objective Data
-
Labs:
Laboratory Results
02/20/25
07:13
WBC 7.8
Hgb 7.4 L
Hct 23.4 L
Plt Count 393
Sodium 137
Potassium 3.8
Chloride 107
Carbon Dioxide 24
BUN 21 H
Creatinine 1.5 H
Glucose 104 H
Calcium 9.0
Total Bilirubin 0.1 L
AST 29
ALT 42
Alkaline Phosphatase 101
Vital Signs:
Vital Signs
Temp Pulse Resp BP Pulse Ox
97.6 F 70 16 136/69 99
02/20/25 08:13 02/20/25 09:15 02/20/25 08:13 02/20/25 09:15 02/20/25 08:13
I&O
02/19/25 02/20/25 02/21/25
06:59 06:59 06:59
Intake Total 2880 / 2880 3420 / 3420 250 / 250
Output Total 2100 / 2100 205 / 2049 1800 / 1800
Balance 780 / 780 1370 / 1370 -1550 / -1550
Physical Exam
-
General: Well Developed
Respiratory: Clear to Auscultation
Cardiac: Regular Rhythm and S1/S2
GI: Soft, Nontender, Nondistended and Normal Bowel Sounds
Musculoskeletal: Other (Left lower extremity BKA. Amputation of all digits of right foot. Right foot TMA site with dry necrotic edges, serous drainage , no foul odor, wound dehiscence at the TMA site.)
Neuro: AO x 3
Psych: Calm
Data Reviewed
-
Labs: Labs Reviewed by me and Discussed with Physician
[2025-02-20] MEDS: NOVOLOG FLEXPEN-LOW RESISTANCE 1 UNITS SC (14:16)
--- NOTE | 2025-02-20 14:57 | PTCARENOTE ---
Notified secretarial teacher V[facility] regarding patient's right foot dressing; original dsg; no wound care orders; Dr. Gant replied to hold off anything until tomorrow.
[2025-02-20 14:58] LABS: Hematocrit 23.1 % (39.0-52.0); Hemoglobin 7.2 g/dL (13.0-18.0)
[2025-02-20 16:15] LABS: Glucose - Point of Care 215 mg/dl (70-99)
[2025-02-20 16:22] VITALS: BP 136/74
[2025-02-20] MEDS: NOVOLOG FLEXPEN-LOW RESISTANCE 2 UNITS SC (16:22)
[2025-02-20] MEDS: MYCAMINE 105 MG IV (18:26)
[2025-02-20 22:07] LABS: Glucose - Point of Care 144 mg/dl (70-99)
[2025-02-20 23:19] VITALS: BP 121/68
[2025-02-21] MEDS: ZOSYN 50 IV (01:22)
[2025-02-21 07:00] VITALS: BP 159/82
[2025-02-21 07:53] LABS: Glucose - Point of Care 98 mg/dl (70-99)
--- NOTE | 2025-02-21 08:08 | W.PN.UPDATE ---
Addendum entered and electronically signed by Brady Beasley MD 02/21/25 16:05:
Sepsis due to osteomyelitis with organ dysfunction of with LINDY (suspected ATN), POA
Original Note:
Update Note
Progress Note Update
I personally performed a history and physical exam of the patient and discussed management with the resident. I reviewed the resident's note and agree with the documented findings and plan of care HPI/CC.
Pt states his ability to move is R foot is greatly improved.
Gen: NAD, AAOx3.
Eyes: EOMI, PERRLA, no scleral icterus.
Neck: supple.
CV: RRR, +S1/S2, no m/r/g.
Resp: CTAB, no rales, wheezes, or rhonchi.
Abd: +BS, soft, NT, ND
Skin: No rashes. R foot with gauze dressing with some sanguinous d/c
Neuro: CN 2-12 intact, non-focal.
Psych: Normal mood and affect.
02/16/25 14:21 Blood/Venous Blood Culture - Preliminary
No Growth in 4 days- Final report to follow
02/16/25 13:52 Blood/Venous Blood Culture - Preliminary
No Growth in 4 days- Final report to follow
02/13/25 18:57 Blood/Venous Blood Culture - Final
Bacteroides fragilis
02/13/25 18:57 Blood/Venous Gram Stain - Final
02/13/25 18:57 Blood/Venous Blood Culture - Final
Bacteroides fragilis
02/13/25 18:57 Blood/Venous Gram Stain - Final
02/14/25 15:19 Foot - Right Wound Culture - Final
Staphylococcus simulans
Pavithra lusitaniae
02/14/25 15:19 Foot - Right Gram Stain - Final
02/18/25 16:30 Urine Urine Culture - Final
NO GROWTH
02/13/25 22:20 Nose MRSA Screen - Final
No Methicillin Resistant Staphylococcus aureus isolated.
R foot Xray:
1. New radiolucency and probable osteolysis in the distal ends of the 1st through 5th metatarsal shafts (most pronounced in the distal 1st metatarsal) suggesting ACUTE OSTEOMYELITIS given the interval change in appearance since 12/20/2024 and the
presence of an overlying wound.
2. Previous transmetatarsal amputations.
3. Severe peripheral arterial calcific atherosclerotic disease.
Acute R foot OM:
-due to poor R TMA site healing (s/p R TMA with primary closure on 12/17)
-with Staph simulans and Pavithra lusitaniae positive wound cultures
-podiatry/vascular/ID following
-cont Vanco/Zosyn/Micafungin, final abx regimen to be determined but will need 6 weeks abx
-s/p limbflo salvage but may need BKA, pt not amenable but vascular seems to have salvaged his leg
-pain control
LINDY:
-bladder scan showed retention, now s/p correa
-lisinopril/HCTZ/amlodipine/clonidine all on hold
-renal following
Bacteroides fragilis bacteremia:
-repeat BCxs NG
-? source
DM2:
-a1c 5.7%
-holding dapagliflozin/metformin due to LINDY
-SSI/accuchecks
PAD:
-h/o balloon angioplasty of R proximal anterior tibial artery and distal anterior tibial artery on 10/22
-h/o selective cannulization of the R posterior tibial artery with limited balloon angioplasty on 12/17
-cont ASA/effient
Other problems:
Anemia of chronic disease: trend Hb, transfuse for Hb < 7
Essential HTN: holding lisinopril/HCTZ/amlodipine/clonidine
HLD: cont statin
FULL/heparin
--- NOTE | 2025-02-21 09:19 | W.PN.ID1 ---
Date of Service
Date of Service: February 21, 2025
Today's Communication
- switch to fluconazole, no drug drug interactions with prasugrel
- continue vancomycin and switch zosyn to ertapenem
- patient will need a 6 week course of treatment for presumed osteomyelitis
- additional vancomycin trough and BMP check 02/24
- PICC line placement
Assessment / Plan
Bacteroides bacteremia
Osteomyelitis 1st-5th metatarsal shafts
History of TMA - surgical site dehisced
LINDY
- blood cultures x2 in progress Bacteroides; repeat blood cultures x2 ordered and no growth to date
- MRSA screen negative
- wound culture - methicillin resistant S simulans, C lusitaniae
- switch to fluconazole, no drug drug interactions with prasugrel
- continue vancomycin and switch zosyn to ertapenem
- patient will need a 6 week course of treatment for presumed osteomyelitis
- additional vancomycin trough and BMP check 02/24
- PICC line placement
- follow clinically
Chief Complaint
-: Other (surgical site infection)
Subjective / Review of Systems
afebrile
bp stable
no events overnight
Vital Signs / Physical Exam
Vital Signs
Vital Signs
Temp Pulse Resp BP Pulse Ox
98.5 F 83 18 159/82 99
02/21/25 07:00 02/21/25 07:00 02/21/25 07:00 02/21/25 07:00 02/21/25 07:00
Physical Exam
Constitutional: No Acute Distress
Cardiovascular: Regular Rate and S1/S2; Negative Murmur or Rub
Pulmonary: Clear and Symmetric; Negative Wheezes or Rales
Gastrointestinal: Soft, Non Tender, Non Distended and Normal Bowel Sounds
Skin: Warm and Dry; Negative Rash or Jaundice
Wound: Other (dressing minimal strikethrough on the dressing)
Objective Data
Lab Data
ESR 113 mm/hour (0-20) H 02/15/25 05:59
Estimated Creat Clear 57 ml/min 02/20/25 07:13
Lactic Acid Cancelled 02/13/25 23:00
Total Bilirubin 0.1 mg/dl (0.2-1.3) L 02/20/25 07:13
AST 29 U/L (17-59) 02/20/25 07:13
ALT 42 U/L (0-50) 02/20/25 07:13
Alkaline Phosphatase 101 U/L (38-126) 02/20/25 07:13
C-Reactive Protein 125.00 mg/L (0.0-10.00) H 02/15/25 05:58
Most recent labs reviewed.
Micro Results:
02/16/25 14:21 Blood Culture - Preliminary
Blood/Venous No Growth in 4 days- Final report to follow
02/16/25 13:52 Blood Culture - Preliminary
Blood/Venous No Growth in 4 days- Final report to follow
02/13/25 18:57 Blood Culture - Final
Blood/Venous Bacteroides fragilis
Gram Stain - Final
02/13/25 18:57 Blood Culture - Final
Blood/Venous Bacteroides fragilis
Gram Stain - Final
02/14/25 15:19 Wound Culture - Final
Foot - Right Staphylococcus simulans
Pavithra lusitaniae
Gram Stain - Final
02/18/25 16:30 Urine Culture - Final
Urine NO GROWTH
02/13/25 22:20 MRSA Screen - Final
Nose No Methicillin Resistant Staphylococcus aureus isolated.
[2025-02-21] MEDS: NOVOLOG FLEXPEN-LOW RESISTANCE SC ×2 (09:43→14:33)
[2025-02-21] MEDS: ALPHAGAN 0.2% EYE DROPS 1 DROP LEFT EYE ×2 (09:44→20:16)
[2025-02-21] MEDS: ATROPINE SULFATE 1% DROPS 1 DROP LEFT EYE ×2 (09:44→20:16)
[2025-02-21] MEDS: EFFIENT 10 MG PO (09:45)
[2025-02-21] MEDS: CATAPRES 0.1 MG PO (09:45)
[2025-02-21] MEDS: CRESTOR 20 MG PO (09:45)
[2025-02-21] MEDS: HEPARIN 5000 UNITS SC ×2 (09:45→20:16)
[2025-02-21] MEDS: LOW STRENGTH ASPIRIN 81 MG PO (09:45)
[2025-02-21] MEDS: NEURONTIN 300 MG PO ×3 (09:45→21:16)
[2025-02-21] MEDS: MIRALAX 17 GRAMS PO (09:46)
[2025-02-21] MEDS: TIMOPTIC 0.5% OPHTHALMIC SOLUTION 1 DROP LEFT EYE ×2 (09:46→20:16)
[2025-02-21] MEDS: PRED FORTE 1% EYE DROPS 1 DROP LEFT EYE ×4 (09:46→21:15)
[2025-02-21] MEDS: TRUSOPT 2% OPHTHALMIC SOLUTION 1 DROP LEFT EYE ×2 (09:47→20:16)
[2025-02-21] MEDS: ZOSYN IV (09:56)
--- NOTE | 2025-02-21 09:56 | PHA.VAN.FU ---
Vancomycin Assessment / Plan
- Assessment
Renal Function: SCR Decreasing
WBC's are: WNL
In the past 24 hrs, patient has been: Afebrile
Concomitant Antimicrobials: Ertapenem 1 gram IV q24h
- Assessment - Therapeutic Drug Monitoring
Random Level: 14.9 (02/21 at 08:39 AM) ~22 hours after previous dose of 1 gram
- Dosing Plan
Dosing by Level: Re-dose today (Vancomycin 1250 mg (~14 mg/kg))
Dosing Comments: Recommended Vancomycin 1250 mg IV q48h upon discharge
- Monitoring Plan
Peak Level: 22.6 (02/20 at 13:30 PM)
Random Level: 14.9 (02/21 at 08:39 AM)
Monitoring Comments: Consider biweekly monitoring outpatient
- Follow Up
Pharmacy will continue to follow.
Vancomycin Follow UP
- -
Patient Age: 59
Patient Sex: Male
Vancomycin Day #: 9
Indication: [facility]
Requesting Provider: Medardo / Sander
Pertinent Antimicrobial Allergies:
NKDA
Height / Weight:
Height 5 ft 11 in
Actual Weight 89.857 kg
Pertinent Past Medical History: PAD, DM 2, L. AKA
- Vital Signs / Lab Results
Temp Pulse Resp BP Pulse Ox
98.5 F 83 18 159/82 99
02/21/25 07:00 02/21/25 07:00 02/21/25 07:00 02/21/25 07:00 02/21/25 07:00
Lab Results - Hematology
02/19/25 02/20/25
07:49 07:13
WBC 9.9 7.8
Lab Results - Chemistry
02/19/25 02/20/25
07:49 07:13
BUN 19 21 H
Creatinine 1.7 H 1.5 H
Estimated Creat Clear 50 57
Albumin 3.1 L 2.8 L
Microbiology Results
02/16/25 14:21 Blood Culture - Preliminary
Blood/Venous No Growth in 4 days- Final report to follow
02/16/25 13:52 Blood Culture - Preliminary
Blood/Venous No Growth in 4 days- Final report to follow
02/13/25 18:57 Blood Culture - Final
Blood/Venous Bacteroides fragilis
Gram Stain - Final
02/13/25 18:57 Blood Culture - Final
Blood/Venous Bacteroides fragilis
Gram Stain - Final
02/14/25 15:19 Wound Culture - Final
Foot - Right Staphylococcus simulans
Pavithra lusitaniae
Gram Stain - Final
02/18/25 16:30 Urine Culture - Final
Urine NO GROWTH
Therapeutic Drug Monitoring
Vancomycin Peak 22.6 ug/ml (18-26) 02/20/25 13:30
Random Vancomycin 14.9 ug/ml 02/21/25 08:39
[2025-02-21 10:24] LABS: ALT (SGPT) 37 U/L (0-50); AST (SGOT) 23 U/L (17-59); Albumin 3.2 g/dl (3.5-5.0); Alkaline Phosphatase 101 U/L (38-126); Blood Urea Nitrogen 16 mg/dl (9-20); Calcium 9.5 mg/dl (8.4-10.2); Carbon Dioxide 26 mmol/L (22-30); Chloride 109 mmol/L (98-107); Estimated Creatinine Clearance 57 ml/min; Glucose 85 mg/dl (70-99); Hematocrit 27.8 % (39.0-52.0); Hemoglobin 8.5 g/dL (13.0-18.0); Magnesium 2.0 mg/dl (1.6-2.3); Mean Corp Hgb Conc. 30.6 g/dL (33.0-37.0); Mean Corpuscular Volume 94.2 fL (80.0-94.0); Nucleated Red Blood Cells % 0 % (-); Platelet Count 404 10^3/uL (130-400); Potassium 3.8 mmol/L (3.5-5.1); Red Cell Dist. Width 17.4 % (11.5-14.5); Sodium 141 mmol/L (135-145); Total Protein 6.0 g/dl (6.3-8.2); eGFR 53.63
[2025-02-21] MEDS: DIFLUCAN 400 MG PO (10:41)
[2025-02-21] MEDS: INVANZ 60 MG IV (10:41)
--- NOTE | 2025-02-21 11:05 | CM ---
Addendum entered by Lydia Jimenez 02/21/25 16:35:
Per [facility], Ambulance scheduled for 1000 AM tomorrow, 02/22
Addendum entered by Lydia Jimenze 02/21/25 16:31:
Wound Care consult ordered; evaluation pending
Discharge to [facility] via Ambulance tomorrow AM; Nikole Kan, for [facility] notified via phone
Transport Forms on the chart
Report # [phone]

Addendum entered by Lydia Jimenez 02/21/25 15:51:
Insurance Authorization approved starting today, 02/21 through 02/25; therapy and medical nursing approved
Review date 02/25; #[phone]
Nikole Kan for [facility] notified via phone
Authorization referral # for SNF [id number]
Authorization for Ambulance # [id number]
Addendum entered by Lydia Jimenez 02/21/25 14:55:
[facility] accepted referral pending authorization approval; Authorization submitted
Addendum entered by Lydia Jimenez 02/21/25 13:21:
faxed Updated IV ABX order to [facility]; called Lyubov to acknowledge that fax was received
Plan: Discharge to [facility] pending bed availability
Addendum entered by Lydia Jimenez 02/21/25 11:23:
Culture reports and IV Abx order form sent to [facility] via
Original Note:
Script for IV ABX received; will send to SNF
[2025-02-21] MEDS: VANCOCIN 275 MG IV (11:18)
--- NOTE | 2025-02-21 12:16 | W.PN.HOSP.TC ---
Today's Communication/Plan
-
- plan to dc patient today with IV antibiotics pending ID consult
Assessment / Plan
Assessment / Plan
Acute osteomyelitis secondary to unknown source:
- History of right transmetatarsal amputation with primary closure on 12/17
- Physical examination shows complete right metatarsal amputation with complete wound dehiscence, purulent drainage, and dry necrotic edges
- Foot xray on 02/13/25 shows acute osteomyelitis of the 1st through 5th metatarsal shafts most pronounced in 1st shaft
- Continue empiric Vancomycin and Zosyn , blood cultures show bacteroides fragilis but repeat blood cultures negative, wound culture shows staph simulans and yeast, urine culture still pending, awaiting
an Id of yeast - before finalizing a home regimen, for now continue micafungin pending ID of the yeast, as per ID
- limflow with debridement of TMA on 02/17/25, post operative report states Excellent TADV Doppler signals as per ID, follow up scheduled
- ESR is 113 and C-reactive protein is 125 which are helpful for long-term monitoring
- Percocet for mild and moderate pain, and Dilaudid 0.25 q4h for severe pain
- PT/OT ordered suggest SNF
- patient will need 6 week course of outpatient Iv antibiotics
Pre renal Acute kidney injury:
- Today his creatinine is 1.5 from 1.7, continue to observe
- discontinue iv fluids as this is not pre-renal LINDY because patient is eating and drinking well, has received IV fluids for over 3 days, and BUN/Cr is less than 20.
- Bladder scan shows urinary retention as volume is greater than 400 ml. Bustamante cath order placed.
- Urine studies shows FeNa of 1.9 which is indeterminate. His UA shows urine glucose of 4+, few urine yeast, many bacteria, and wbc of 6-10 which i suspect is a diabetic nephropathy with possible early UTI. Urine culture ordered.
- consulted nephro.
- Restarted amlodipine and clonidine
- hold lisinopril, HCTZ, SGLT2
Type 2 diabetes mellitus:
- Today his glucose is 118 and well-controlled
- Hold dapagliflozin, metformin due to elevated creatinine of 1.9
- Presently patient should continue on insulin sliding scale
PAD
History of balloon angioplasty of right proximal anterior tibial artery on 10/22
History of balloon angioplasty of the distal anterior tibial artery on 10/22
History of selective cannulization of the right posterior tibial artery with limited balloon angioplasty on 12/17
- Continue aspirin
Anemia of chronic disease
-His hemoglobin normally sits around 7.5-9
- Hemoglobin 7.4. will repeat H&H and Will transfuse 1 unit of blood if hemoglobin is less than 7.
- Ordered a type and screen
- No symptoms of an acute bleed such as tachycardia, shortness of breath, fatigue, pallor, cool skin.
Essential hypertension
- - Restarted amlodipine and clonidine
Hyperlipidemia
- continue his atorvastatin
Glaucoma of left eye:
- Continue brimonidine, timolol
Obesity
Full code
DVT prophylaxis�heparin
Regular diet
Anticipated Discharge: Today
Subjective/Interval History
-
Date of Service: February 21, 2025
No overnight events
No pain, No headache, fever, chills, nausea, diarrhea, vomiting, abdominal pain, altered mental status, diaphoresis.
Objective Data
-
Labs:
Laboratory Results
02/21/25
08:39
WBC 8.2
Hgb 8.5 L
Hct 27.8 L
Plt Count 404 H
Sodium 141
Potassium 3.8
Chloride 109 H
Carbon Dioxide 26
BUN 16
Creatinine 1.5 H
Glucose 85
Calcium 9.5
Total Bilirubin 0.2
AST 23
ALT 37
Alkaline Phosphatase 101
Vital Signs:
Vital Signs
Temp Pulse Resp BP Pulse Ox
98.5 F 83 18 159/82 99
02/21/25 07:00 02/21/25 07:00 02/21/25 07:00 02/21/25 07:00 02/21/25 07:00
I&O
02/20/25 02/21/25 02/22/25
06:59 06:59 06:59
Intake Total 3420 / 3420 1910
Output Total 2049 3320 / 3320
Balance 1370 / 1370 -1409 / -1409
Review of Systems
-
History Source: Patient
All other systems: Reviewed and negative
Physical Exam
-
General: Well Developed
Respiratory: Clear to Auscultation
Cardiac: Regular Rhythm and S1/S2
GI: Soft, Nontender, Nondistended and Normal Bowel Sounds
Musculoskeletal: Other (Left lower extremity BKA. Amputation of all digits of right foot. Right foot TMA site with dry necrotic edges, serous drainage , no foul odor, wound dehiscence at the TMA site.)
Neuro: AO x 3
Psych: Calm
Data Reviewed
-
Labs: Labs Reviewed by me and Discussed with Physician
[2025-02-21 12:41] VITALS: BP 165/83; PULSE 90; O2SAT 99
[2025-02-21 12:42] LABS: Glucose - Point of Care 116 mg/dl (70-99)
[2025-02-21 12:47] VITALS: BP 165/83; PULSE 83; O2SAT 99
[2025-02-21 15:00] VITALS: BP 159/82
--- NOTE | 2025-02-21 15:45 | PN.CDI ---
CDI
- -
CDI:
Physician Documentation Request
Admit Date: 02/13/25 20:18
Dear ,
[facility] is using an adapted version of the 2016 Third International Consensus Definitions for Sepsis and Septic Shock (Sepsis-3) where sepsis is defined as life threatening organ dysfunction caused by a deregulated host response to infection.
Please reference the official [facility] Sepsis Recognition Tool for further information, which can be found on the Intranet under Infection Prevention.
Clinical Indicators Include:
Patient admitted with acute osteomyelitis of right foot.
Blood cultures:
02/13/25 18:57 Blood Culture - Final
Blood/Venous Gram Stain - Final
Bacteroides fragilis
02/13/25 18:57 Blood Culture - Final
Blood/Venous Gram Stain - Final
Bacteroides fragilis
02/18 Renal consult, 'He has had relative hypotension in the 90s systolic...Acute kidney injury creatinine 1.9 secondary to hemodynamics and hypotension. Representing possible ATN early.'
Based on your medical judgment, can you further clarify the diagnosis being monitored/treated this admission?
Sepsis due to osteomyelitis with organ dysfunction of with suspected ATN, POA
Sepsis due to osteomyelitis with organ dysfunction of with LINDY, POA
Osteomyelitis only
Other
Clinically unable to determine
Use of terms such as suspected, likely, concern for, or probable (associated with a specific diagnosis that is being evaluated, monitored, or treated as if it exists) are acceptable and can be coded in the inpatient setting when documented at the
time of discharge.
Please use your independent medical judgement in providing your response.
Thank you,
JESSICA Ortiz RN
CDI Specialist
available via tiger text
--- NOTE | 2025-02-21 16:56 | W.PN.NEPH.PH ---
Today's Communication / Plan
-
follow labs
Assessment/Plan
-
59-year-old with past medical history of ukv-[id number]-[id number] diabetes, hypertension and hyperlipidemia diabetic retinopathy who has significant peripheral artery disease with previous interventions in the past including lower extremity bypass
right partial hallux amputation resection of the proximal phalanx and metatarsal status post osteomyelitis. Presents to [facility] on this occasion with foot pain worsening who underwent left BKA for a nonhealing right TMA site and is
postop day #1.
Renal consultation was requested for acute kidney injury with a creatinine of 1.9 on admission from 0.9 in December. December admission he did have mild acute kidney injury creatinine went up to 1.6 but improved.
He has had relative hypotension in the 90s systolic.
His family was at the bedside help provide history. His son inform me that at home prior to admission his urine was very dark. He currently has a Correa catheter and had some residual urine retention of about 500 cc and therefore Correa catheter
placed
He has gotten IV fluids totaling of about 15 L including medications etc. and his put out 12 L with a positive balance of 2.3 L. Total output from the Correa catheter was 5.9 L and 6.8 L voided.
antibiotics since admission including vancomycin random levels have been checked with the highest of 19
Impression.
Acute kidney injury creatinine 1.9 secondary to hemodynamics and hypotension. Representing possible ATN early. Moderate urinary retention may have contributed but creatinine improved since placing Correa catheter. He has not gotten any IV contrast
while inpatient/Vanco levels seem
PAD/osteo status post BKA
Diabetes. Uncontrolled hemoglobin A1c is as high as 10.4> diabetic for 18 years with diabetic retinopathy
Hypertension now with hypotension
Mild hyponatremia 133
Plan.
Renal dose all medications appropriately for diminished GFR
Proteinuria secondary to longstanding diabetes.
Urinalysis 02/16 no red blood cells with 6-10 white blood cells and urine sodium 54.
monitor bladder scan off correa, remains non oliguric
He is on SGLT2 inhibitor outpatient continue to hold as well as hydrochlorothiazide metformin and lisinopril= I suspect will be able to restart as long as the creatinine remains at a steady state
Gabapentin at 300 mg 3 times daily okay for now at current GFR
he should f/u with PCP and repeat BMP in 1week
-
-
Date of Service: February 21, 2025
CC / HPI / ROS
-
Chief Complaint:
Sepsis
History of Present Illness:
Patient presents with infection status post amputation and LINDY
cr better at 1.5
hb better at 8.5
Review of Systems:
No chest pain shortness of breath
no new complaints
Labs
-
Labs:
WBC 8.2 10^3/uL (4.8-10.8) 02/21/25 08:39
RBC 2.95 10^6/uL (4.70-6.10) L 02/21/25 08:39
Hgb 8.5 g/dL (13.0-18.0) L 02/21/25 08:39
Hct 27.8 % (39.0-52.0) L 02/21/25 08:39
Plt Count 404 10^3/uL (130-400) H 02/21/25 08:39
Sodium 141 mmol/L (135-145) 02/21/25 08:39
Potassium 3.8 mmol/L (3.5-5.1) 02/21/25 08:39
Chloride 109 mmol/L (98-107) H 02/21/25 08:39
Carbon Dioxide 26 mmol/L (22-30) 02/21/25 08:39
BUN 16 mg/dl (9-20) 02/21/25 08:39
Creatinine 1.5 mg/dL (0.7-1.3) H 02/21/25 08:39
eGFR 53.63 02/21/25 08:39
Glucose 85 mg/dl (70-99) 02/21/25 08:39
Calcium 9.5 mg/dl (8.4-10.2) 02/21/25 08:39
Albumin 3.2 g/dl (3.5-5.0) L 02/21/25 08:39
Physical Exam
-
Vital Signs:
Vital Signs
Temp Pulse Resp BP Pulse Ox
98 F 82 20 159/82 100
02/21/25 15:00 02/21/25 15:00 02/21/25 15:00 02/21/25 15:00 02/21/25 15:00
Cardiovascular:: Regular rate and rhythm
Respiratory:: Bilateral: CTA
Lung Excursion:: Normal
Abdomen:: Nontender and Soft
Extremity Edema:: +1: Right:
Correa Catheter: No
Other Findings::
left BKA stump
--- NOTE | 2025-02-21 17:12 | WOUNDNOTE ---
R TMA/dorsal foot
--- NOTE | 2025-02-21 17:13 | WOUNDNOTE ---
R TMA/DORSAL FOOT
--- NOTE | 2025-02-21 17:15 | WOUNDNOTE ---
[facility] RN note: Patient for discharge but not late ambulance transfer to discharge delayed till tomorrow. KALPANA Field requested local wound care instructions/orders for R TMA. Patient has full thickness R TMA incisional wound with black colored skin
edges and dried blood, black/pink/white tissue in wound bed. Small ss drainage. R dorsal proximal foot with deep dermal pink and dry brown ulcerations suspect d/t PAD and Kerlix wrap. R heel DTI r/t PAD and pressure. [place] texted Dr. Puga
Kumar wound pictures who approved local wound care. Hand Washer stated the dorsal foot wound and a R heel callus was there before. Dressing applied to R TMA, dorsal R foot and R heel with help from KALPANA Field. Patient's L BKA stump wound
pink/dry, appears newly healed. Dry gauze applied and Eulogio reapply to L BKA stump. Patient has some MASD on buttocks skin. Sacrum blanchable red. Patient can turn self in bed. He reports a good appetite. Calazime ointment applied to sacral/buttocks.
R heel off bed with pillow and air chair cushion. Instructed patient pressure injury prevention measures. Confirmed with Dr. Heath can use soft heel relief boot. KALPANA Field to order from [facility]. Care plan and discharge instructions to be
updated. Patient to follow up with graduate studies dean and vascular surgeon.
--- NOTE | 2025-02-21 17:15 | WOUNDNOTE ---
[facility] RN note: Patient for discharge but not late ambulance transfer to discharge delayed till tomorrow. KALPANA Field requested local wound care instructions/orders for R TMA. Patient has full thickness R TMA incisional wound with black skin edges and
dried blood and pink tissue in wound bed. Small ss drainage. R dorsal proximal foot with dermal ulcerations suspect d/t PAD and Kerlix wrap. R heel DTI r/t PAD and pressure. [place] texted Dr. Vivien Heath wound pictures who approved local
wound care. On Air Announcer stated the dorsal foot wound and R heel ulcer is not new. Dressing applied to R TMA, dorsal R foot and R heel with help from KALPANA Field. Patient's L BKA stump wound pink/dry, appears newly healed. Dry gauze applied and Eulogio
reapply to L BKA stump. Patient has some MASD on buttocks skin. Sacrum blanchable red. Patient can turn self in bed. He reports a good appetite. Calazime ointment applied to sacral/buttocks. R heel off bed with pillow and air chair cushion.
Confirmed with Dr. Heath can use soft heel relief boot. KALPANA Field to order from [facility]. Care plan and discharge instructions to be updated. Patient to follow up with poultry process worker and vascular surgeon.
[2025-02-21 17:34] LABS: Glucose - Point of Care 158 mg/dl (70-99)
[2025-02-21] MEDS: NOVOLOG FLEXPEN-LOW RESISTANCE 1 UNITS SC (17:48)
[2025-02-21 21:15] LABS: Glucose - Point of Care 157 mg/dl (70-99)
[2025-02-21 23:00] VITALS: BP 164/84
[2025-02-22 07:00] VITALS: BP 168/82
--- NOTE | 2025-02-22 07:41 | W.PN.UPDATE ---
Update Note
Progress Note Update
I saw and evaluated the patient. I reviewed the resident�s note and agree with findings and plan as documented in the resident�s note.
No new complaints.
Gen: NAD, AAOx3.
Eyes: EOMI, PERRLA, no scleral icterus.
Neck: supple.
CV: remains RRR, +S1/S2, no m/r/g.
Resp: remains CTAB, no rales, wheezes, or rhonchi.
Abd: +BS, soft, NT, ND
Skin: No rashes. R foot with C/D/I gauze dressing
Neuro: CN 2-12 intact, non-focal.
Psych: Normal mood and affect.
02/16/25 14:21 Blood/Venous Blood Culture - Final
No Growth - Final Report
02/16/25 13:52 Blood/Venous Blood Culture - Final
No Growth - Final Report
02/13/25 18:57 Blood/Venous Blood Culture - Final
Bacteroides fragilis
02/13/25 18:57 Blood/Venous Gram Stain - Final
02/13/25 18:57 Blood/Venous Blood Culture - Final
Bacteroides fragilis
02/13/25 18:57 Blood/Venous Gram Stain - Final
02/14/25 15:19 Foot - Right Wound Culture - Final
Staphylococcus simulans
Pavithra lusitaniae
02/14/25 15:19 Foot - Right Gram Stain - Final
02/18/25 16:30 Urine Urine Culture - Final
NO GROWTH
02/13/25 22:20 Nose MRSA Screen - Final
No Methicillin Resistant Staphylococcus aureus isolated.
R foot Xray:
1. New radiolucency and probable osteolysis in the distal ends of the 1st through 5th metatarsal shafts (most pronounced in the distal 1st metatarsal) suggesting ACUTE OSTEOMYELITIS given the interval change in appearance since 12/20/2024 and the
presence of an overlying wound.
2. Previous transmetatarsal amputations.
3. Severe peripheral arterial calcific atherosclerotic disease.
Acute R foot OM, Bacteroides bacteremia:
-due to poor R TMA site healing (s/p R TMA with primary closure on 12/17)
-with Staph simulans and Pavithra lusitaniae positive wound cultures
-s/p limbflo salvage but may need BKA, pt not amenable but vascular seems to have salvaged his leg
-podiatry/vascular/ID following
-cont Vanco/Invanz/Fluconazole for 6 weeks as per ID
-pain control
LINDY:
-bladder scan showed retention, now s/p correa
-lisinopril/HCTZ/amlodipine/clonidine all on hold
-renal following
DM2:
-a1c 5.7%
-holding dapagliflozin/metformin due to LINDY
-SSI/accuchecks
PAD:
-h/o balloon angioplasty of R proximal anterior tibial artery and distal anterior tibial artery on 10/22
-h/o selective cannulization of the R posterior tibial artery with limited balloon angioplasty on 12/17
-cont ASA/effient
Other problems:
Anemia of chronic disease: trend Hb, transfuse for Hb < 7
Essential HTN: holding lisinopril/HCTZ/amlodipine/clonidine
HLD: cont statin
FULL/heparin
Dispo: Medically cleared for d/c today. Will discuss antihypertensive med regimen with renal prior to d/c.
Total time spent on d/c = 36 min. This included today's physical exam, progress note, review of laboratory and diagnostic data, preparation of discharge documents and prescriptions, and discussions about the pt's hospital course and discharge plan
with the patient and other medical i d sales involved in the patient's care.
[2025-02-22 07:44] LABS: Glucose - Point of Care 95 mg/dl (70-99)
[2025-02-22 08:41] LABS: Hematocrit 27.1 % (39.0-52.0); Hemoglobin 8.3 g/dL (13.0-18.0); Mean Corp Hgb Conc. 30.6 g/dL (33.0-37.0); Mean Corpuscular Volume 92.8 fL (80.0-94.0); Platelet Count 385 10^3/uL (130-400); Red Cell Dist. Width 17.3 % (11.5-14.5)
[2025-02-22] MEDS: CATAPRES 0.1 MG PO (08:43)
[2025-02-22] MEDS: MIRALAX 17 GRAMS PO (08:43)
[2025-02-22] MEDS: CRESTOR 20 MG PO (08:43)
[2025-02-22] MEDS: LOW STRENGTH ASPIRIN 81 MG PO (08:43)
[2025-02-22] MEDS: NEURONTIN 300 MG PO (08:43)
[2025-02-22] MEDS: DIFLUCAN 400 MG PO (08:43)
[2025-02-22] MEDS: FEOSOL 325 MG PO (08:43)
[2025-02-22] MEDS: EFFIENT 10 MG PO (08:43)
[2025-02-22] MEDS: NOVOLOG FLEXPEN-LOW RESISTANCE SC (08:44)
[2025-02-22] MEDS: HEPARIN 5000 UNITS SC (08:44)
[2025-02-22] MEDS: TRUSOPT 2% OPHTHALMIC SOLUTION 1 DROP LEFT EYE (08:45)
[2025-02-22] MEDS: INVANZ 60 MG IV (08:45)
[2025-02-22] MEDS: PRED FORTE 1% EYE DROPS 1 DROP LEFT EYE (08:45)
[2025-02-22] MEDS: ATROPINE SULFATE 1% DROPS 1 DROP LEFT EYE (08:45)
[2025-02-22] MEDS: TIMOPTIC 0.5% OPHTHALMIC SOLUTION 1 DROP LEFT EYE (08:45)
[2025-02-22] MEDS: ALPHAGAN 0.2% EYE DROPS 1 DROP LEFT EYE (08:45)
[2025-02-22 09:05] LABS: Blood Urea Nitrogen 16 mg/dl (9-20); Calcium 9.5 mg/dl (8.4-10.2); Carbon Dioxide 26 mmol/L (22-30); Chloride 110 mmol/L (98-107); Estimated Creatinine Clearance 78 ml/min; Glucose 94 mg/dl (70-99); Potassium 3.6 mmol/L (3.5-5.1); Sodium 138 mmol/L (135-145); eGFR > 60.00
--- NOTE | 2025-02-22 09:33 | W.PN.HOSP.TC ---
Today's Communication/Plan
-
- discharge to SNF
Assessment / Plan
Assessment / Plan
Acute osteomyelitis secondary to unknown source:
- History of right transmetatarsal amputation with primary closure on 12/17
- Physical examination shows complete right metatarsal amputation with complete wound dehiscence, purulent drainage, and dry necrotic edges
- Foot xray on 02/13/25 shows acute osteomyelitis of the 1st through 5th metatarsal shafts most pronounced in 1st shaft
- Continue vancomycin, fluconazole, ertapenem check for 6 weeks with repeat BMP and vancomycin trough
- limflow with debridement of TMA on 02/17/25, post operative report states Excellent TADV Doppler signals as per ID, follow up scheduled
- ESR is 113 and C-reactive protein is 125 which are helpful for long-term monitoring
- Percocet for mild and moderate pain, and Dilaudid 0.25 q4h for severe pain
- PT/OT ordered suggest [facility], he will be discharged to [facility]
Pre renal Acute kidney injury:
- Today his creatinine is 1.1 from 1.5, continue to observe
- consulted nephro.
- Restarted amlodipine and clonidine
- restarted lisinopril, HCTZ, SGLT2 as creatinine normalized
Type 2 diabetes mellitus:
- Today his glucose is 94 and well-controlled
- continue patient on home medications for diabetes
PAD
History of balloon angioplasty of right proximal anterior tibial artery on 10/22
History of balloon angioplasty of the distal anterior tibial artery on 10/22
History of selective cannulization of the right posterior tibial artery with limited balloon angioplasty on 12/17
- Continue aspirin
Anemia of chronic disease
-His hemoglobin normally sits around 7.5-9
- Hemoglobin 8.3 and normal for him
- Ordered a type and screen
- No symptoms of an acute bleed such as tachycardia, shortness of breath, fatigue, pallor, cool skin.
Essential hypertension
- - Restarted amlodipine and clonidine
Hyperlipidemia
- continue his atorvastatin
Glaucoma of left eye:
- Continue brimonidine, timolol
Obesity
Full code
DVT prophylaxis�heparin
Regular diet
Anticipated Discharge: Today
Subjective/Interval History
-
Date of Service: February 22, 2025
No overnight events
No pain, No headache, fever, chills, nausea, diarrhea, vomiting, abdominal pain, altered mental status, diaphoresis.
Objective Data
-
Labs:
Laboratory Results
02/22/25
08:24
WBC 8.7
Hgb 8.3 L
Hct 27.1 L
Plt Count 385
Sodium 138
Potassium 3.6
Chloride 110 H
Carbon Dioxide 26
BUN 16
Creatinine 1.1
Glucose 94
Calcium 9.5
Vital Signs:
Vital Signs
Temp Pulse Resp BP Pulse Ox
98.6 F 76 16 164/84 98
02/21/25 23:00 02/21/25 23:00 02/21/25 23:00 02/21/25 23:00 02/21/25 23:00
I&O
02/21/25 02/22/25 02/23/25
06:59 06:59 06:59
Intake Total 1910 3060 / 3060
Output Total 3320 / 3320 2550 / 2550
Balance -1409 / -1409 510 / 510
Review of Systems
-
History Source: Patient
All other systems: Reviewed and negative
Physical Exam
-
General: Well Developed
Respiratory: Clear to Auscultation
Cardiac: Regular Rhythm and S1/S2
GI: Soft, Nontender, Nondistended and Normal Bowel Sounds
Musculoskeletal: Other (Left lower extremity BKA. Amputation of all digits of right foot. Right foot TMA site with dry necrotic edges, serous drainage , no foul odor, wound dehiscence at the TMA site.)
Neuro: AO x 3
Psych: Calm
Data Reviewed
-
Labs: Labs Reviewed by me and Discussed with Physician
--- NOTE | 2025-02-22 09:37 | CM ---
manager user interface reviewed patient's chart and met with patient this am, patient has a 10:30 am black pickler to [facility] today, PICC line information faxed along with script for IV ABX, and wound care notes.
Plan; Patient to transfer [facility] today.
Report # [phone]
--- NOTE | 2025-02-22 09:52 | PTCARENOTE ---
Call placed to [facility] x2 to try and give report. This RN was left on hold and hung up on. Will try again later. Patient to be picked up at 1000.
--- NOTE | 2025-02-22 09:53 | W.PN.NEPH.PH ---
Today's Communication / Plan
-
ok for d/c
f/u with PCP , BMP next week
Assessment/Plan
-
59-year-old with past medical history of nea-[id number] diabetes, hypertension and hyperlipidemia diabetic retinopathy who has significant peripheral artery disease with previous interventions in the past including lower extremity bypass
right partial hallux amputation resection of the proximal phalanx and metatarsal status post osteomyelitis. Presents to [facility] on this occasion with foot pain worsening who underwent left BKA for a nonhealing right TMA site and is
postop day #1.
Renal consultation was requested for acute kidney injury with a creatinine of 1.9 on admission from 0.9 in December. December admission he did have mild acute kidney injury creatinine went up to 1.6 but improved.
He has had relative hypotension in the 90s systolic.
His family was at the bedside help provide history. His son inform me that at home prior to admission his urine was very dark. He currently has a Correa catheter and had some residual urine retention of about 500 cc and therefore Correa catheter
placed
He has gotten IV fluids totaling of about 15 L including medications etc. and his put out 12 L with a positive balance of 2.3 L. Total output from the Correa catheter was 5.9 L and 6.8 L voided.
antibiotics since admission including vancomycin random levels have been checked with the highest of 19
Impression.
Acute kidney injury creatinine 1.9 secondary to hemodynamics and hypotension. Representing possible ATN early. Moderate urinary retention may have contributed but creatinine improved since placing Correa catheter. He has not gotten any IV contrast
while inpatient/Vanco levels seem
PAD/osteo status post BKA
Diabetes. Uncontrolled hemoglobin A1c is as high as 10.4> diabetic for 18 years with diabetic retinopathy
Hypertension now with hypotension
Mild hyponatremia 133
Plan.
cr much better at 1.1
ok to resume home meds and follow labs wiht in week
Proteinuria secondary to longstanding diabetes.
monitor bladder scan off correa, remains non oliguric
dose meds renally
he should f/u with PCP and repeat BMP in 1week
-
-
Date of Service: February 22, 2025
CC / HPI / ROS
-
Chief Complaint:
Sepsis
History of Present Illness:
Patient presents with infection status post amputation and LINDY
cr better at 1.1
hb stable at 8.3
Review of Systems:
No chest pain shortness of breath
no new complaints
Labs
-
Labs:
WBC 8.7 10^3/uL (4.8-10.8) 02/22/25 08:24
RBC 2.92 10^6/uL (4.70-6.10) L 02/22/25 08:24
Hgb 8.3 g/dL (13.0-18.0) L 02/22/25 08:24
Hct 27.1 % (39.0-52.0) L 02/22/25 08:24
Plt Count 385 10^3/uL (130-400) 02/22/25 08:24
Sodium 138 mmol/L (135-145) 02/22/25 08:24
Potassium 3.6 mmol/L (3.5-5.1) 02/22/25 08:24
Chloride 110 mmol/L (98-107) H 02/22/25 08:24
Carbon Dioxide 26 mmol/L (22-30) 02/22/25 08:24
BUN 16 mg/dl (9-20) 02/22/25 08:24
Creatinine 1.1 mg/dL (0.7-1.3) 02/22/25 08:24
eGFR > 60.00 02/22/25 08:24
Glucose 94 mg/dl (70-99) 02/22/25 08:24
Calcium 9.5 mg/dl (8.4-10.2) 02/22/25 08:24
Albumin 3.2 g/dl (3.5-5.0) L 02/21/25 08:39
Physical Exam
-
Vital Signs:
Vital Signs
Temp Pulse Resp BP Pulse Ox
98.2 F 76 16 168/82 99
02/22/25 07:00 02/22/25 07:00 02/22/25 07:00 02/22/25 07:00 02/22/25 07:00
Cardiovascular:: Regular rate and rhythm
Respiratory:: Bilateral: CTA
Lung Excursion:: Normal
Abdomen:: Nontender and Soft
Extremity Edema:: +1: Right:
Correa Catheter: No
Other Findings::
left BKA stump
--- NOTE | 2025-02-22 09:56 | W.PN.ID1 ---
Date of Service
Date of Service: February 22, 2025
Today's Communication
- patient will need a 6 week course of treatment for presumed osteomyelitis
- additional vancomycin trough and BMP check friday 02/23 - updated script sent
Assessment / Plan
Bacteroides bacteremia
Osteomyelitis 1st-5th metatarsal shafts
History of TMA - surgical site dehisced
LINDY
- blood cultures x2 in progress Bacteroides; repeat blood cultures x2 ordered and no growth to date
- MRSA screen negative
- wound culture - methicillin resistant S simulans, C lusitaniae
- continue fluconazole
- continue vancomycin and ertapenem
- patient will need a 6 week course of treatment for presumed osteomyelitis
- additional vancomycin trough and BMP check friday 02/23 - updated script sent
- PICC line placement
- follow clinically
Chief Complaint
-: Other (surgical site infection)
Subjective / Review of Systems
afebrile
bp stable
tolerating current therapies
Vital Signs / Physical Exam
Vital Signs
Vital Signs
Temp Pulse Resp BP Pulse Ox
98.2 F 76 16 168/82 99
02/22/25 07:00 02/22/25 07:00 02/22/25 07:00 02/22/25 07:00 02/22/25 07:00
Physical Exam
Constitutional: No Acute Distress
Cardiovascular: Regular Rate and S1/S2; Negative Murmur or Rub
Pulmonary: Clear and Symmetric; Negative Wheezes or Rales
Gastrointestinal: Soft, Non Tender, Non Distended and Normal Bowel Sounds
Skin: Warm and Dry; Negative Rash or Jaundice
Objective Data
Lab Data
Lab Results
02/22/25 08:24
02/22/25 08:24
ESR 113 mm/hour (0-20) H 02/15/25 05:59
Estimated Creat Clear 78 ml/min 02/22/25 08:24
Lactic Acid Cancelled 02/13/25 23:00
Total Bilirubin 0.2 mg/dl (0.2-1.3) 02/21/25 08:39
AST 23 U/L (17-59) 02/21/25 08:39
ALT 37 U/L (0-50) 02/21/25 08:39
Alkaline Phosphatase 101 U/L (38-126) 02/21/25 08:39
C-Reactive Protein 125.00 mg/L (0.0-10.00) H 02/15/25 05:58
Most recent labs reviewed.
Micro Results:
02/16/25 14:21 Blood Culture - Final
Blood/Venous No Growth - Final Report
02/16/25 13:52 Blood Culture - Final
Blood/Venous No Growth - Final Report
02/13/25 18:57 Blood Culture - Final
Blood/Venous Bacteroides fragilis
Gram Stain - Final
02/13/25 18:57 Blood Culture - Final
Blood/Venous Bacteroides fragilis
Gram Stain - Final
02/14/25 15:19 Wound Culture - Final
Foot - Right Staphylococcus simulans
Pavithra lusitaniae
Gram Stain - Final
02/18/25 16:30 Urine Culture - Final
Urine NO GROWTH
02/13/25 22:20 MRSA Screen - Final
Nose No Methicillin Resistant Staphylococcus aureus isolated.
--- NOTE | 2025-02-22 13:43 | W.DCSUMMARY ---
Discharge Summary
Discharge Data
Date of Admission: 02/13/25
Date of Discharge: 02/22/25
-
Pending Results: No
Hospital Course
Discharging Physician : Dr. Brady Beasley and Dr. Jose Maria Owens
Disposition : SNF
Primary care physician : Dr. Mari Murillo
Principal Discharge diagnosis : Acute osteomyelitis of right metatarsal amputation, prerenal acute kidney injury
Chronic Discharge diagnosis : Type 2 diabetes mellitus, peripheral artery disease, anemia chronic disease, essential hypertension, hyperlipidemia, glaucoma left eye
Hospital Course : 59-year-old male past medical history of PAD status post angioplasty right proximal anterior tibial artery/right posterior tibial artery, right partial hallux amputation, resection of base of proximal phalanx and partial first
metatarsal, osteomyelitis status post transmetatarsal amputation, anemia of chronic disease, type 2 diabetes, constipation, hypertension, hyperlipidemia, obesity, presenting for worsening right foot pain.
Problem #1:
Acute osteomyelitis with Staph simulans and Pavithra Lusitaniae and a positive wound culture secondary to poor transmetatarsal amputation site healing
Chronic limb threatening ischemia right lower extremity with no arterial revascularization options
Peripheral arterial disease
Type 2 diabetes mellitus
- Patient had a right metatarsal amputation due to osteomyelitis on 12/16/2024 and he presented to the ER on 02/13/2025 for worsening right foot pain associated with foul odor. On admission no fever, chills, nausea, vomiting, diarrhea and blood
sugar was 53, bilateral pulses present. Foot x-ray showed New radiolucency and probable osteolysis in the distal ends of the 1st through 5th metatarsal shafts (most pronounced in the distal 1st metatarsal) suggesting ACUTE OSTEOMYELITIS given the
interval change in appearance since 12/20/2024 and the presence of an overlying wound. Infectious disease, podiatry were consulted. Zosyn and vancomycin IV started. Initial blood cultures positive for bacterial rods fragilis and wound culture
positive for Staphylococcus simulans and Pavithra lusitaniae. Micafungin was then added for Pavithra which was finally switched to fluconazole at time of discharge due to no drug interactions with prasugrel. Patient will need 6 weeks of IV treatment
with the vancomycin/Zosyn/fluconazole. on 02/17/2025 patient opted for a limb to flow salvage procedure (originally had planned for below-knee amputation but changed his mind), which showed good postoperative results with excellent Doppler signals.
Patient was then started on prasugrel following surgery to be taken with aspirin, duration of medication management will be decided through vascular surgery outpatient follow-up. His blood sugar level well-controlled throughout the course of his
hospital stay with levels at 94 on day of discharge, he was on sliding scale insulin as his dapagliflozin , metformin, Ozempic held due to prerenal acute kidney injury. On discharge, patient is stable and afebrile with adequately healed right lower
extremity. repeat CBC and CMP with vancomycin trough level on 02/24/2025 with PCP.
Problem #2:
Prerenal acute kidney injury
Essential hypertension
- Creatinine of 1.9 on admission. All nephrotoxic drugs continued and his hydralazine/hydrochlorothiazide/lisinopril were all held. Amlodipine and clonidine were started. Initially thought to be prerenal LINDY so fluids were administered however
his creatinine did not budge for the next 4 days up to 02/17/2025. We did bladder scan and it showed more than 1000 mL of retained urine so patient had Bustamante catheter placed for 2 days. Following catheter placement, his creatinine started to
trend down and finally on discharge on 02/22/2025 it was 1.1. Will be able to continue his hydralazine/hydrochlorothiazide/lisinopril on discharge. Blood pressure remained stable throughout course of hospital stay. Repeat BMP on 02/24 with PCP.
Problem #3: Hyperlipidemia
- Was started on rosuvastatin 20 his home dose during hospital stay and will be continued on discharge.
Problem #4: Anemia of chronic disease
- His hemoglobin normally sits around 7.5-9. Lowest his hemoglobin reached during course of hospital stay was 7.2 but patient's showed no acute symptoms of a bleed. Type and screen was ordered. No blood transfusions. On discharge his hemoglobin
was 8.3 and patient was clinically stable.
Problem #5: Glaucoma left eye
- Started on home dose brimonidine and timolol and will continue on discharge
Important imaging findings :
Foot x-ray on 02/13/2025
IMPRESSION:
1. New radiolucency and probable osteolysis in the distal ends of the 1st through 5th metatarsal shafts (most pronounced in the distal 1st metatarsal) suggesting ACUTE OSTEOMYELITIS given the interval change in appearance since 12/20/2024 and the
presence of an overlying wound.
2. Previous transmetatarsal amputations.
3. Severe peripheral arterial calcific atherosclerotic disease.
Duplex scan lower extremity artery on 02/14/2025
IMPRESSION: A preoperative LimFlow duplex evaluation was performed. Vein diameters are as listed above. No evidence of deep or superficial vein thrombus. Arterial duplex examination reveals patent posterior tibial artery, peroneal artery and
anterior tibial artery at the ankle. No toe pressure was performed as the patient is status post transmetatarsal amputation.
Chest x-ray on 02/21/2025
IMPRESSION:
No acute disease of the chest.
Procedure findings :
TADV procedure of the right lower extremity limb flow procedure on 02/17/2025
1. Duplex assisted cannulation of right lower extremity lateral plantar vein.
2. Duplex assisted cannulation of right common femoral artery.
3. Balloon angioplasty of proximal posterior tibial artery with 3 mm angioplasty balloon.
4. Transcatheter arterialization of the deep veins (TADV) right lower extremity - LimFlow procedure with placement of overlapping LimFlow stents (5.5mm x 150 mm, 5.5mm x 200mm, 5.5 to 3.5 mm tapered 60mm length).
5. Balloon angioplasty of deep veins including pedal venous system.
Excellent TADV Doppler signals
Discharge Plan
-
Patient Disposition: [facility]NF
Discharge Diagnosis/Procedures: Acute osteomyelitis, acute kidney injury, Bacteroides fragilis bacteremia, type 2 diabetes mellitus, peripheral artery disease, anemia chronic disease, hypertension, hyperlipidemia, obesity
Condition: Fair
Diet: Diabetic, Carb Controlled
Activity: No strenuous activity
Driving Restrictions: No driving for 24 hours
Bathing Restrictions: None
Blood Work: CBC and CMP on 02/24/2025 and Vancomycin trough
Others Tests: Your repeat limflow ultrasound is on 02/28/2025 at 11:30 AM here at [facility]
Activity Restrictions/Additional Instructions:
Wound Care Instructions
R TMA wound: clean with saline, adaptic, alginate, ABD pad, secure with loosely wrapped Kerlix or stockinet, change daily and prn drainage.
R dorsal proximal foot and R heel ulcer: clean with saline, adaptic, ABD pad, secure with loosely wrapped Kerlix or stockinet daily.
Elevate R heel off bed: use soft heel relief boot as tolerated (i.e. TruVue lite boot); off load heel with pillow/s and air chair cushion while boot off.
Pressure redistributing chair cushion (i.e. Air chair cushion, Roho).
Follow up with certified respiratory therapist Dr. Vivien Heath.
Follow up with Vascular surgeon.
Follow up at wound care center if needed, call for an appointment.
Stand Alone Forms: Vascular Surg Discharge Instr
Referrals:
Mari Murillo MD [Non-Admitting Privileges, Family Practice] - in less than 1 week
Cindy Griffith CRNP [Specified Professional Personl, Vascular Surgery] - 03/04/25 11:30 am
Prescriptions:
New
fluconazole 200 mg Tablet
400 mg PO DAILY Qty: 30 0RF
prasugrel HCl 10 mg Tablet
10 mg PO DAILY Qty: 30 0RF
gabapentin 300 mg Capsule
300 mg PO TID Qty: 30 0RF
Ertapenem [Invanz] 1000 MG
0.9% Sodium Chloride [Nss] 50 ML
120 mls/hr IV Q24H
Ordered By: Jose Maria Owens MD, Resident
Last Taken: 02/22/25 08:45 60 mls
VANCOMYCIN Pharmacy to Dose [VANCOCIN Pharmacy to Dose] 1 EACH
Pharmacy To Prepare [Call Pharmacy To Prepare] 0 ML
As Directed mls/hr IV PER PROTOCOL
Ordered By: Jose Maria Owens MD, Resident
Last Taken: Unknown
Continued
hydrochlorothiazide 25 mg Tablet
25 mg PO DAILY
lisinopril 40 mg tablet
40 mg PO DAILY
metformin 750 mg Tablet Extended Release 24 Hr
750 mg PO DAILY
amlodipine [Norvasc] 10 mg Tablet
10 mg PO DAILY
sumatriptan succinate 25 mg tablet
25 mg PO Q2HPRN PRN (Reason: headache)
acetazolamide 250 mg tablet
500 mg PO BID
oxycodone-acetaminophen 5-325 mg tablet
2 tab PO Q6HPRN PRN (Reason: moderate pain)
prednisolone acetate 1 % drops,suspension
1 drp LEFT EYE QID
brimonidine 0.2 % drops
1 drp LEFT EYE BID
dorzolamide-timolol 22.3-6.8 mg/mL drops
1 drp LEFT EYE BID
Santyl 250 unit/gram ointment
1 applic TOPICAL DAILY
atropine 1 % drops
1 drp LEFT EYE BID
Ozempic 0.25 mg or 0.5 mg (2 mg/3 mL) pen injector
0.5 mg SC WEEKLY
hydralazine 50 mg tablet
50 mg PO TID
ferrous fumarate 324 mg (106 mg iron) tablet
324 mg PO Q48H
aspirin 81 mg tablet,chewable
81 mg PO DAILY
rosuvastatin 20 mg Tablet
20 mg PO DAILY 30 Days Qty: 30 0RF
dapagliflozin propanediol 10 mg Tablet
10 mg PO DAILY 30 Days Qty: 30 0RF
clonidine HCl 0.1 mg tablet
0.1 mg PO DAILY 30 Days Qty: 30 0RF
Discontinued
gabapentin 300 mg capsule
600 mg PO TID
Discharge Orders:
Discharge Patient (As Directed); Ordered 02/22/25
Ordered By: Brady Beasley
Discharge Date and Time
Discharge Date/Time: 02/22/25 10:24
Print Language: GREENLAND[place]
== END 2025-02-22 10:24 | DRG 981 ==
LOC: 2 NORTH 20:18
PROVIDERS: Nurse Practitioner; Student in an Organized Health Care Education/Training Program; ADMITTING PHYSICIAN Hospitalist; ATTENDING PHYSICIAN Internal Medicine; CONSULT PHYSICIAN Podiatrist Foot & Ankle Surgery; EMERGENCY PHYSICIAN Emergency Medicine; OTHER PHYSICIAN Internal Medicine Nephrology; OTHER PHYSICIAN Student in an Organized Health Care Education/Training Program; OTHER PHYSICIAN Surgery Vascular Surgery
PROC: 041R3JS Bypass Right Posterior Tibial Artery to Lower Extremity Vein with Synthetic Substitute, Percutaneous Approach (ICD-10-PCS; 2025-02-17)
PROC: 02HV33Z Insertion of Infusion Device into Superior Vena Cava, Percutaneous Approach (ICD-10-PCS; 2025-02-21)
DX: T87.43 Infection of amputation stump, right lower extremity (principal); A41.4 Sepsis due to anaerobes; R65.20 Severe sepsis without septic shock; N17.0 Acute kidney failure with tubular necrosis; E11.52 Type 2 diabetes mellitus with diabetic peripheral angiopathy with gangrene; M86.171 Other acute osteomyelitis, right ankle and foot; E87.1 Hypo-osmolality and hyponatremia; I70.261 Atherosclerosis of native arteries of extremities with gangrene, right leg; E11.69 Type 2 diabetes mellitus with other specified complication; I10 Essential (primary) hypertension; E78.00 Pure hypercholesterolemia, unspecified; H40.9 Unspecified glaucoma; T87.81 Dehiscence of amputation stump; T87.53 Necrosis of amputation stump, right lower extremity; D63.8 Anemia in other chronic diseases classified elsewhere; I95.9 Hypotension, unspecified; E11.649 Type 2 diabetes mellitus with hypoglycemia without coma; K59.00 Constipation, unspecified; E66.9 Obesity, unspecified; Z68.31 Body mass index [BMI] 31.0-31.9, adult; E11.319 Type 2 diabetes mellitus with unspecified diabetic retinopathy without macular edema; Y83.8 Other surgical procedures as the cause of abnormal reaction of the patient, or of later complication, without mention of misadventure at the time of the procedure; F17.290 Nicotine dependence, other tobacco product, uncomplicated; R33.9 Retention of urine, unspecified; Z98.62 Peripheral vascular angioplasty status; Z89.512 Acquired absence of left leg below knee; Z79.82 Long term (current) use of aspirin; Z79.84 Long term (current) use of oral hypoglycemic drugs
CPT/HCPCS: 0620T; 71045; 73620; 80048; 80053; 80202; 81003; 81015; 82570; 82962; 83036; 83605; 83735; 84300; 85014; 85018; 85025; 85027; 85652; 86140; 86850; 86900; 86901; 87040; 87070; 87086; 87106; 87147; 87154; 87185; 87186; 87205; 93005; 93922; 93926; 93971; 96361; 96374; 96375; 97163; 97167; 97530; 99285; C1725; C1769; C1889; C1894; J1335; Q9967

== ENCOUNTER → 2025-02-28 12:54 | Outpatient (REF) | payer BC, SELFPAY | LOC: RAD 12:54 | PROVIDERS: ATTENDING PHYSICIAN Surgery Vascular Surgery | DX: I73.9 Peripheral vascular disease, unspecified (principal) | CPT/HCPCS: 93922; 93926; 93971 ==

== ENCOUNTER 2025-03-03 20:31 | Inpatient (IN) | payer BC, SELFPAY ==
[2025-03-03] VITALS (11 sets, daily range): BP systolic 97–134; BP diastolic 57–65; BMI 32.9; BMI 28.5
[2025-03-03 18:09] LABS: Hematocrit 24.8 % (39.0-52.0); Hemoglobin 7.8 g/dL (13.0-18.0); Mean Corp Hgb Conc. 31.5 g/dL (33.0-37.0); Mean Corpuscular Volume 89.9 fL (80.0-94.0); Nucleated Red Blood Cells % 0 % (-); Platelet Count 478 10^3/uL (130-400); Red Cell Dist. Width 17.5 % (11.5-14.5)
--- NOTE | 2025-03-03 18:12 | ED.GENMED ---
History of Present Illness
<Hector Draper PA-C - Last Filed: 03/03/25 23:56>
General
Chief Complaint: Change in Mental Status
Source: patient and records
Time Seen by Provider: 03/03/25 17:41
History of Present Illness
History of Present Illness:
59-year-old male with past medical history of peripheral vascular and arterial disease status post left AKA in June 2024 and status post right transmetatarsal amputations from December 2024, uncontrolled type 1 diabetes, previous acute kidney
injury presenting to the emergency department via EMS from [facility] for evaluation of reported lethargy. Patient states that he feels as if he is in his usual state of health. He states that with physical therapy they want him to be active
and engaged and right now he states that he just does not want to feel that way. He describes himself as a listening to jazz music in the corner ricardo and just wants to be left alone at the moment. He denies any pain, focal weakness or numbness,
headaches, visual disturbances, chest pain or shortness of breath, abdominal pain, nausea or vomiting. Patient is overall unsure of his medications but he notes that he is still getting antibiotics through his PICC line to his right upper
extremity. He has no other concerns at this time
Past History
<Hector Draper PA-C - Last Filed: 03/03/25 23:56>
Past History
ED Past Medical History: CHF, HTN, Hypercholesterolemia, IDDM, Other (Diabetic retinopathy) and Other (PVD, MIKE)
ED Past Surgical History: Orthopedic (ORIF pelvic fx 2015) and Other (Right transmetatarsal amputation 12/2024, Left below the knee amputation 08/2024)
Social History
Tobacco: Other (occasional cigar)
Alcohol: Occasional
Drug: None
Personal: Single
Living: detention
Employment: Employed
Family History
Family History: Other (Mother- colon cancer, brother -stomach cancer)
Review of Systems
<Hector Draper PA-C - Last Filed: 03/03/25 23:56>
Review of Systems
All Other Systems: ROS reviewed and negative except as documented in HPI and ROS
Phy Exam
<Hector Draper PA-C - Last Filed: 03/03/25 23:56>
Physical Exam
Physical Exam:
GENERAL: Alert , in no apparent distress but appears older than stated age
EYE: clear conjunctiva b/l
HEAD: NCAT
ENT: o/p clr, mmm.
CARDIAC: Regular rate and rhythm .
LUNGS: Clear breath sounds bilaterally, no acute respiratory distress, no wheezes/rales/rhonchi
ABDOMEN: Soft, somewhat distended suprapubically, no r/g, no cvat
NEUROLOGICAL: Alert and oriented
SKIN: Warm and dry, skin intact.
MUSCULOSKELETAL: Left AKA, no erythema to the stump. Right lower extremity: Dressing in place, transmetatarsal amputation noted, black eschar, mostly dry, slightly open wound but no bleeding
PSYCH: Normal and appropriate interaction.
Scores
<Hector Draper PA-C - Last Filed: 03/03/25 23:56>
Heart Failure Risk
Heart Failure Risk Score: Not Applicable
Heart Score for Chest Pain Patients
STEMI patient?: Not applicable
Withdrawal Assessment of Alcohol
Withdrawal Assessment Completed?: Not applicable
Course
<Hector Draper PA-C - Last Filed: 03/03/25 23:56>
Orders/Labs/Results
Orders:
Orders
03/03/25 Dinner
1800 calorie (15 carb) Diabetic
03/03/25 17:40
Electrocardiogram (*1) Urgent
Reason for Study: Other
Other Reason for Exam: Possible Sepsis
EKG- Treatment ONCE
03/03/25 17:44
CXR2 [CR Chest - 2 Views ] Urgent
Comment:
Reason For Exam: RUE PICC present from NH
03/03/25 17:59
Complete Blood Count/With Diff Urgent
Comprehensive Metabolic Panel Urgent
03/03/25 18:38
Add On- LAB Urgent
Tests Added?: vanco level
0.9% Sodium Chloride 1000 ml [Nss] 1,000 ml IV BOLUS
03/03/25 19:04
Urinalysis Reflex To Culture Urgent
Date Specimen was Collected: 03/03/25
Time Specimen was Collected: 19:01
Urine Microscopic Reflex Cult Urgent
Urine Culture Urgent
DIANA Source: U
Specimen Description:
Date Specimen was Collected: 03/03/25
Time Specimen was Collected: 19:01
03/03/25 19:55
Admit/Transfer Patient As Directed
Co-Sign Provider:
Level of Care: Inpatient admission
Assign to:: Medical/Surgical
Physician / Group: Emy
Diagnosis: LINDY
Reason for Hospitalization: LINDY, weakness/dehydration
Expected length of stay greater than two midnights?: Yes
ELOS- Estimated Length of Stay in days: 2
I certify the patient meets the requirements for IP care: Yes
PRN Pain Medication Management As Directed
May give lesser potent ordered pain med per pt: Yes
preference::
Protocol:: Medication orders for pain may be administered in a
manner that supports deferring to patient preference
when the pt is:
- Requesting an ordered lesser potent pain medication.
Least to most potent pain medications are defined
as: acetaminophen < NSAID < tramadol < opioids
(morphine, oxycodone, hydromorphone).
- Requesting a lesser dose of the same medication IF
ORDERED.
- Requesting a less intrusive route of administration
if both routes are prescribed by the provider (PO <
IV).
03/03/25 19:58
Code Status As Directed
Resuscitation Status: Full Code
03/03/25 20:10
Vancomycin Random Routine
03/03/25 20:56
0.9% Sodium Chloride 1000 ml [Nss] 1,000 ml IV 75 mls/hr
Acetaminophen [Tylenol] 650 mg PO Q4HPRN PRN
Atropine Sulfate [Atropine Sulfate 1% Drops] See Dose Instructions LEFT EYE BID
Bisacodyl [Dulcolax] 10 mg RECTAL [id number] PRN
Brimonidine [Alphagan 0.2% Eye Drops] See Dose Instructions LEFT EYE BID
Dextrose 50%-Water [Dextrose 50% Syringe] 12.5 grams IV [id number] PRN
Docusate W/Senna [Senokot-S] 1 tablet PO BIDPRN PRN
Glucagon [GlucaGen] 1 mg IM PRN PRN
Ondansetron Injectable [Zofran] 4 mg IV Q6HPRN PRN
Oxycodone/Acetaminophen [Percocet 5/325] 2 tablet PO Q6HPRN PRN moderate pain
Polyethylene Glycol Powder [Miralax] 17 grams PO DAILYPRN PRN
VANCOMYCIN Pharmacy to Dose [VANCOCIN Pharmacy to Dose] 1 each Pharmacy To Prepare [Call Pharmacy To Prepare] 0 ml IV PER PROTOCOL
03/03/25 20:56
PODIATRY CONSULT Routine
Consulting Provider: Vivien Heath
Was physician already notified: Yes
Activity As Directed
Activity Level: With Assistance
Bedside Glucose Monitoring As Directed
Frequency: AC&HS
Additional Instructions:: Change to q6h if pt on TPN, tube feeding or not eating
Bustamante Catheter [Catheter- Indwelling] As Directed
Reason for insertion: Acute Retention
Discontinue Date/Time: 03/06/25 0600
Intake/ Output As Directed
Frequency: Per unit guidelines
Vital Signs As Directed
Frequency: Per unit guidelines
Pulse Ox/spot Check [RESP] Routine
Quantity: 1
DX Deep Vein Thrombosis Video Routine
03/03/25 22:00
Ferrous Sulfate [Feosol] 325 mg PO Q48H
Gabapentin [Neurontin] 300 mg PO TID
HydrALAZINE [Apresoline] 50 mg PO TID
Prednisolone Acetate [Pred Forte 1% Eye Drops] See Dose Instructions LEFT EYE QID
03/04/25 00:00
Heparin 5,000 units SC Q8
03/04/25 06:00
Basic Metabolic Panel IN AM
Complete Blood Count/No Diff IN AM
Creatine Phosphokinase IN AM
Glycohemoglobin (HgbA1c) IN AM
Magnesium IN AM
03/04/25 07:30
Insulin Aspart Corrective Low [Novolog Flexpen-Low Resistance] See Protocol SC AC
03/04/25 08:00
Amlodipine [Norvasc] 10 mg PO DAILY
Aspirin Chewable [Low Strength Aspirin] 81 mg PO DAILY
Clonidine [Catapres] 0.1 mg PO DAILY
Collagenase [Santyl Ointment] 1 applic TOPICAL DAILY
Ertapenem [Invanz] 1,000 mg 0.9% Sodium Chloride [Nss] 50 ml IV Q24H
Prasugrel Hydrochloride [Effient] 10 mg PO DAILY
Rosuvastatin Calcium [Crestor] 20 mg PO DAILY
Abnormal Lab Results
03/03/25 03/03/25
17:59 19:04
WBC 11.8 H 10^3/uL
(4.8-10.8)
RBC 2.76 L 10^6/uL
(4.70-6.10)
Hgb 7.8 L g/dL
(13.0-18.0)
Hct 24.8 L %
(39.0-52.0)
MCHC 31.5 L g/dL
(33.0-37.0)
RDW 17.5 H %
(11.5-14.5)
Plt Count 478 H 10^3/uL
(130-400)
Abs Immat Gran (auto) 0.1 H 10^3/uL
(0-0.05)
Absolute Neuts (auto) 9.6 H 10^3/uL
(1.4-6.5)
Absolute Monos (auto) 0.8 H 10^3/uL
(0.1-0.6)
Neutrophils % 81.2 H %
(42.2-75.2)
Lymphocytes % 10.6 L %
(20.5-51.1)
Sodium 134 L mmol/L
(135-145)
Potassium 3.3 L mmol/L
(3.5-5.1)
Carbon Dioxide 19 L mmol/L
(22-30)
BUN 38 H mg/dl
(9-20)
Creatinine 3.1 H mg/dL
(0.7-1.3)
Glucose 105 H mg/dl
(70-99)
Alkaline Phosphatase 142 H U/L
(38-126)
Albumin 3.4 L g/dl
(3.5-5.0)
Ur Occult Blood Reflex 1+ A
(Negative)
Urine RBC 3-6 A /HPF
(0-2)
Urine Bacteria (Reflex) Moderate A
(Negative)
Urine Glucose 3+ A
(Negative)
Urine Albumin (Reflex) 3+ A
(Neg - Trace)
03/03/25 17:59
03/03/25 17:59
Vital Signs
Initial and Last Documented VS:
Initial Vital Signs
Temp BP Pulse Ox
98.5 F 97/59 99
03/03/25 17:38 03/03/25 17:38 03/03/25 17:38
Last Documented Vital Signs
Temp Pulse Resp BP Pulse Ox
98.1 F 88 17 134/65 99
03/03/25 23:08 03/03/25 23:08 03/03/25 23:08 03/03/25 23:08 03/03/25 23:08
<Elina Byron, DO - Last Filed: 03/03/25 20:02>
Orders/Labs/Results
Orders:
Orders
03/03/25 Dinner
1800 calorie (15 carb) Diabetic
03/03/25 17:40
Electrocardiogram (*1) Urgent
Reason for Study: Other
Other Reason for Exam: Possible Sepsis
EKG- Treatment ONCE
03/03/25 17:44
CXR2 [CR Chest - 2 Views ] Urgent
Comment:
Reason For Exam: RUE PICC present from NH
03/03/25 17:59
Complete Blood Count/With Diff Urgent
Comprehensive Metabolic Panel Urgent
03/03/25 18:38
Add On- LAB Urgent
Tests Added?: vanco level
0.9% Sodium Chloride 1000 ml [Nss] 1,000 ml IV BOLUS
03/03/25 19:04
Urinalysis Reflex To Culture Urgent
Date Specimen was Collected: 03/03/25
Time Specimen was Collected: 19:01
Urine Microscopic Reflex Cult Urgent
Urine Culture Urgent
DIANA Source: U
Specimen Description:
Date Specimen was Collected: 03/03/25
Time Specimen was Collected: 19:01
03/03/25 19:55
Admit/Transfer Patient As Directed
Co-Sign Provider:
Level of Care: Inpatient admission
Assign to:: Medical/Surgical
Physician / Group: Emy
Diagnosis: LINDY
Reason for Hospitalization: LINDY, weakness/dehydration
Expected length of stay greater than two midnights?: Yes
ELOS- Estimated Length of Stay in days: 2
I certify the patient meets the requirements for IP care: Yes
PRN Pain Medication Management As Directed
May give lesser potent ordered pain med per pt: Yes
preference::
Protocol:: Medication orders for pain may be administered in a
manner that supports deferring to patient preference
when the pt is:
- Requesting an ordered lesser potent pain medication.
Least to most potent pain medications are defined
as: acetaminophen < NSAID < tramadol < opioids
(morphine, oxycodone, hydromorphone).
- Requesting a lesser dose of the same medication IF
ORDERED.
- Requesting a less intrusive route of administration
if both routes are prescribed by the provider (PO <
IV).
03/03/25 19:58
Code Status As Directed
Resuscitation Status: Full Code
03/03/25 20:10
Vancomycin Random Routine
03/03/25 20:56
0.9% Sodium Chloride 1000 ml [Nss] 1,000 ml IV 75 mls/hr
Acetaminophen [Tylenol] 650 mg PO Q4HPRN PRN
Atropine Sulfate [Atropine Sulfate 1% Drops] See Dose Instructions LEFT EYE BID
Bisacodyl [Dulcolax] 10 mg RECTAL [id number] PRN
Brimonidine [Alphagan 0.2% Eye Drops] See Dose Instructions LEFT EYE BID
Dextrose 50%-Water [Dextrose 50% Syringe] 12.5 grams IV [id number] PRN
Docusate W/Senna [Senokot-S] 1 tablet PO BIDPRN PRN
Glucagon [GlucaGen] 1 mg IM PRN PRN
Ondansetron Injectable [Zofran] 4 mg IV Q6HPRN PRN
Oxycodone/Acetaminophen [Percocet 5/325] 2 tablet PO Q6HPRN PRN moderate pain
Polyethylene Glycol Powder [Miralax] 17 grams PO DAILYPRN PRN
VANCOMYCIN Pharmacy to Dose [VANCOCIN Pharmacy to Dose] 1 each Pharmacy To Prepare [Call Pharmacy To Prepare] 0 ml IV PER PROTOCOL
03/03/25 20:56
PODIATRY CONSULT Routine
Consulting Provider: Vivien Heath
Was physician already notified: Yes
Activity As Directed
Activity Level: With Assistance
Bedside Glucose Monitoring As Directed
Frequency: AC&HS
Additional Instructions:: Change to q6h if pt on TPN, tube feeding or not eating
Bustamante Catheter [Catheter- Indwelling] As Directed
Reason for insertion: Acute Retention
Discontinue Date/Time: 03/06/25 0600
Intake/ Output As Directed
Frequency: Per unit guidelines
Vital Signs As Directed
Frequency: Per unit guidelines
Pulse Ox/spot Check [RESP] Routine
Quantity: 1
DX Deep Vein Thrombosis Video Routine
03/03/25 22:00
Ferrous Sulfate [Feosol] 325 mg PO Q48H
Gabapentin [Neurontin] 300 mg PO TID
HydrALAZINE [Apresoline] 50 mg PO TID
Prednisolone Acetate [Pred Forte 1% Eye Drops] See Dose Instructions LEFT EYE QID
03/04/25 00:00
Heparin 5,000 units SC Q8
03/04/25 06:00
Basic Metabolic Panel IN AM
Complete Blood Count/No Diff IN AM
Creatine Phosphokinase IN AM
Glycohemoglobin (HgbA1c) IN AM
Magnesium IN AM
03/04/25 07:30
Insulin Aspart Corrective Low [Novolog Flexpen-Low Resistance] See Protocol SC AC
03/04/25 08:00
Amlodipine [Norvasc] 10 mg PO DAILY
Aspirin Chewable [Low Strength Aspirin] 81 mg PO DAILY
Clonidine [Catapres] 0.1 mg PO DAILY
Collagenase [Santyl Ointment] 1 applic TOPICAL DAILY
Ertapenem [Invanz] 1,000 mg 0.9% Sodium Chloride [Nss] 50 ml IV Q24H
Prasugrel Hydrochloride [Effient] 10 mg PO DAILY
Rosuvastatin Calcium [Crestor] 20 mg PO DAILY
Abnormal Lab Results
03/03/25 03/03/25
17:59 19:04
WBC 11.8 H 10^3/uL
(4.8-10.8)
RBC 2.76 L 10^6/uL
(4.70-6.10)
Hgb 7.8 L g/dL
(13.0-18.0)
Hct 24.8 L %
(39.0-52.0)
MCHC 31.5 L g/dL
(33.0-37.0)
RDW 17.5 H %
(11.5-14.5)
Plt Count 478 H 10^3/uL
(130-400)
Abs Immat Gran (auto) 0.1 H 10^3/uL
(0-0.05)
Absolute Neuts (auto) 9.6 H 10^3/uL
(1.4-6.5)
Absolute Monos (auto) 0.8 H 10^3/uL
(0.1-0.6)
Neutrophils % 81.2 H %
(42.2-75.2)
Lymphocytes % 10.6 L %
(20.5-51.1)
Sodium 134 L mmol/L
(135-145)
Potassium 3.3 L mmol/L
(3.5-5.1)
Carbon Dioxide 19 L mmol/L
(22-30)
BUN 38 H mg/dl
(9-20)
Creatinine 3.1 H mg/dL
(0.7-1.3)
Glucose 105 H mg/dl
(70-99)
Alkaline Phosphatase 142 H U/L
(38-126)
Albumin 3.4 L g/dl
(3.5-5.0)
Ur Occult Blood Reflex 1+ A
(Negative)
Urine RBC 3-6 A /HPF
(0-2)
Urine Bacteria (Reflex) Moderate A
(Negative)
Urine Glucose 3+ A
(Negative)
Urine Albumin (Reflex) 3+ A
(Neg - Trace)
03/03/25 17:59
03/03/25 17:59
Vital Signs
Initial and Last Documented VS:
Initial Vital Signs
Temp BP Pulse Ox
98.5 F 97/59 99
03/03/25 17:38 03/03/25 17:38 03/03/25 17:38
Last Documented Vital Signs
Temp Pulse Resp BP Pulse Ox
98.1 F 88 17 134/65 99
03/03/25 23:08 03/03/25 23:08 03/03/25 23:08 03/03/25 23:08 03/03/25 23:08
<Hector Draper PA-C - Last Filed: 03/03/25 23:56>
MDM/Problems Addressed
Differential Diagnosis Includes:
Medication side effects
Bacteremia
Cellulitis/Abscess/Osteomyelitis
UTI
LINDY/CKD
Anemia
Electrolyte Imbalance
Pneumonia
MDM/Problems Addressed:
59-year-old male presenting to the ER for evaluation of reported lethargy. Patient stating that he feels as if he is in his usual state of health. At baseline patient appears to be overall ill but he is in no acute distress here. Postoperatively
wound appears to have more of a chronic appearance of infection as opposed to anything acute. Will check labs, urine and reassess with plan that if his tests come back without any acute abnormalities can probably be discharged safely back to his
rehab.
Chronic conditions affecting care: DM and Other (Recent right transmetatarsal imitation secondary to diabetes/osteomyelitis)
Acute Exacerbation and/or Progression of Chronic Illness: DM
<Hector Draper PA-C - Last Filed: 03/03/25 23:56>
*Radiology
Radiology exam reviewed: preliminary read by ED provider (No infiltrates, PICC in proper place)
*Pulse Oximetry
SaO2: 99
Oxygen Mode of Delivery: Room air
Patient hypoxic: no
*EKG
Heart Rate: 86
Rate: normal
Rhythm: sinus
[place]: normal axis
*Critical Care Note
Total Time (30-74mins, 75-104mins- exclusive of procedures): Not Applicable
Data Reviewed
Review of Other/Old Records Reveals: Labs, Records, Radiology Studies, Operative Reports and Discharge Summary
Source: patient and records
<Hector Draper PA-C - Last Filed: 03/03/25 23:56>
Patient Management
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
Escalation/DeEscalation of care consider admission/obs:
Lab findings noted for significantly worsening renal dysfunction. Bladder scan shows greater than 1 L of urine so a indwelling Bustamante catheter was placed, ultimately drained greater than 2 L. I do suspect patient's lethargy is likely being caused
by his current renal dysfunction likely from urinary retention. Plan to admit for further monitoring. Urology can see in consult as needed. Hospitalist team accepts. I did also notify podiatry given the patient's wound to the right foot although
less suspicious that there is any acute infectious cause for his presenting symptoms
ED Attending Note
<Hector Draper PA-C - Last Filed: 03/03/25 23:56>
-
Portions of this chart may have been created with voice recognition software.� Occasional wrong word or��sound alike� substitutions may have occurred due to the inherent limitations of voice recognition software.
<Elina Matthews DO - Last Filed: 03/03/25 20:02>
ED Attending Note
Patient seen and examined by attending physician: Yes
I performed the substantive portion of visit, reviewed & personally made and approve the management plan that is documented in note by myself or SAIMA.: Yes
I performed a history and physical exam of patient and discussed management with resident, I reviewed resident's note and agree with documented findings and plan of care.: Yes
ED Attending Note:
59-year-old male with history of peripheral vascular disease and arterial disease status post left AKA in June 2024 and recent right transmetatarsal amputation after osteomyelitis and December, diabetes, acute kidney injury presenting for report
of lethargy. Patient himself denies any acute issues, however notes that he does not feel like engaging or being active in physical therapy. He denies any present chest pain, difficulty breathing, abdominal pain. He currently has a PICC line in
place for antibiotic therapy for recent osteomyelitis, receiving vancomycin/Zosyn/fluconazole. Denies any present fever or increased pain to his foot. Vital signs significant for mild hypotension
On exam, patient is resting comfortably, no acute distress. He is afebrile, nontoxic. Unremarkable cardiac, pulmonary, abdominal exam. On examination of the right foot, status post transmetatarsal amputation with evidence of wound still in place
from incision. No active drainage. No erythema. No significant swelling or tenderness to palpation. No signs of active acute infection. Will consult with podiatry, however do not suspect acute on chronic infection at this time. Plan for
screening laboratory analysis to assess for any additional source of presenting 'lethargy '. However at this time patient hemodynamic stable.
20:00 - Patient's labs are significant for LINDY, could be secondary to underlying antibiotics. However while in the hospital, noted to be retaining urine. Concern for obstructive uropathy and subsequent LINDY. Bustamante catheter placed. Plan for
admission for LINDY and continued monitoring
Discharge Plan
Departure
Patient Disposition: Admit
Date of Disposition: 03/03/25
Time of Disposition: 19:18
Presentation/result/management discussed w/ accepting MD/DO: Hospitalist
Discharge Problem:
LINDY (acute kidney injury), Acute urinary retention, Anemia, Chronic osteomyelitis of right foot
Interventions
Interventions:
*Risk Screen - Suicide Last Done: 03/03/25 17:47
*General Assessment Last Done: 03/03/25 17:41
*Neglect/Abuse Screening Last Done: 03/03/25 17:47
*ED- Fall Risk Assessment Last Done: 03/03/25 17:41
*ED COVID-19 Vaccine History Last Done: 03/03/25 17:41
*ED Influenza Vaccine History Last Done: 03/03/25 17:41
*Nursing Disposition Last Done: 03/03/25 20:56
ED- Cardiac Assessment Last Done: 03/03/25 18:00
ED- Neurological Assessment Last Done: 03/03/25 18:00
ED- Pulmonary Assessment Last Done: 03/03/25 18:00
Discharge Date and Time
Discharge Date/Time: 03/03/25 20:56
[2025-03-03 18:29] LABS: ALT (SGPT) 15 U/L (0-50); AST (SGOT) 20 U/L (17-59); Albumin 3.4 g/dl (3.5-5.0); Alkaline Phosphatase 142 U/L (38-126); Blood Urea Nitrogen 38 mg/dl (9-20); Calcium 9.1 mg/dl (8.4-10.2); Carbon Dioxide 19 mmol/L (22-30); Chloride 106 mmol/L (98-107); Estimated Creatinine Clearance 29 ml/min; Glucose 105 mg/dl (70-99); Potassium 3.3 mmol/L (3.5-5.1); Sodium 134 mmol/L (135-145); Total Protein 6.6 g/dl (6.3-8.2); eGFR 22.44
--- NOTE | 2025-03-03 19:08 | EDRN ---
Per ER AMERICA Nassar verbal order to this DOG LICENSER, it is okay to use this patients RUE PICC line for IV medications and IV fluids at this time.
[2025-03-03] MEDS: NSS 1000 IV ×2 (19:11→22:03)
--- NOTE | 2025-03-03 19:22 | HPS.HSE ---
Family Physician
-
Family Physician: Wilmer Faria
Chief Complaint
-
Lethargy
History of Present Illness
This is a 59-year-old male with past medical history significant for hypertension, hyperlipidemia, syu-gthmljn-nalxuhdte diabetes, peripheral vascular disease status post left AKA in June, status post right TMA in December, recently admitted for
acute osteomyelitis status post IV antibiotics and limb flow procedure, no surgical plans by podiatry at that time and now presents to the emergency department with concern for lethargy.
During his last admission, Zosyn and vancomycin IV started. Micafungin was then added for Pavithra which was finally switched to fluconazole at time of discharge due to no drug interactions with prasugrel. Antibiotic course of 6 weeks planned. Limb
to flow salvage procedure (originally had planned for below-knee amputation but changed his mind) on 02/17 showed good postoperative results with excellent Doppler signals. Patient was then started on prasugrel following surgery to be taken with
aspirin, duration of medication management will be decided through vascular surgery outpatient follow-up.
While in the emergency department he is denying any pain, focal weakness numbness shortness of breath. He denies any abdominal pain. He denies any abdominal distention constipation nausea or vomiting. He denies any diarrhea. Has been no changes
in his medications. He is on antibiotics via a PICC line in his right upper extremity. While in the emergency department he was found to have urinary retention with over 600 mL of urine in the bladder that drained status post Bustamante catheter
placement.
Patient remembers that the last time he urinated was last evening. He denies any difficulty with urination. He denies any hematuria. He denies any frequency or urgency. He denies any prior history of urinary retention. He denies BPH.
He endorsed depressed mood as he has been overwhelmed with his recent infection. Patient to reflect on the fact that he has lost the use of both limbs within 1 year whereas he was able-bodied at the beginning of the year. He feels overwhelmed with
this change. He also reports poor appetite and decreased p.o. intake due to diet at the detention.
Review of detention medications includes ongoing diuretic use with acetazolamide but otherwise
In the emergency department patient was afebrile, blood pressure was 102/60 with a pulse rate of 83 and he was satting 99% on room air. ECG shows a normal sinus rhythm at rate of 86. Chest x-ray shows no acute infiltrate. CBC was similar to prior
with a hemoglobin of 7.8, white count of 11.8 and platelet of 478. Electrolytes notable for a sodium of 134 potassium of 3.3 and bicarb of 19 with a creatinine of 3.1 up from a baseline of 1. Glucose was normal.
Medical History
Past Medical History
Past Medical History: Reports Other (PAD status post angioplasty right proximal anterior tibial artery/right posterior tibial artery, right partial hallux amputation, resection of base of proximal phalanx and partial first metatarsal, osteomyelitis
status post transmetatarsal amputation, anemia of chronic disease, type 2 diabetes, cons)
Past Surgical History: Reports Other (amputations )
Social History
Tobacco: Non-smoker
Alcohol: None
Drug: None
Family History
Family History: Not pertinent
Allergies / Home Medications
Allergies reflects when Allergies were last updated in [employer].
Home Medications with original date entered in [employer]
Allergy/Medication List:
Allergies
Allergy/AdvReac Type Severity Reaction Status Date / Time
No Known Allergies Allergy Verified 02/13/25 17:36
Home Medications
rosuvastatin 20 mg tablet 20 mg PO DAILY High cholesterol 30 days #30 tabs 09/14/24
clonidine HCl 0.1 mg tablet 0.1 mg PO DAILY Blood pressure 30 days #30 tabs 09/15/24
dapagliflozin propanediol 10 mg tablet 10 mg PO DAILY Diabetes 30 days #30 tabs 09/15/24
hydrochlorothiazide 25 mg tablet 25 mg PO DAILY Fluid Retention/Swelling 10/18/24
lisinopril 40 mg tablet 40 mg PO DAILY Blood pressure 10/21/24
aspirin 81 mg chewable tablet 81 mg PO DAILY #120 tabs 10/22/24
amlodipine 10 mg tablet (Norvasc) 10 mg PO DAILY Blood Pressure 12/03/24
metformin 750 mg tablet,extended release 24 hr 750 mg PO DAILY Diabetes 12/03/24
acetazolamide 250 mg tablet 500 mg PO BID 02/13/25
atropine 1 % eye drops 1 drp LEFT EYE BID 02/13/25
brimonidine 0.2 % eye drops 1 drp LEFT EYE BID 02/13/25
clonidine 0.1 mg/24 hr weekly transdermal patch 1 patch topical QWEEK 02/13/25
collagenase clostridium histo. 250 unit/gram topical ointment (Santyl) 1 applic topical DAILY 02/13/25
dorzolamide 22.3 mg-timolol 6.8 mg/mL eye drops 1 drp LEFT EYE BID 02/13/25
ferrous fumarate 324 mg (106 mg iron) tablet 324 mg PO Q48H 02/13/25
gabapentin 300 mg capsule 600 mg PO TID 02/13/25
hydralazine 50 mg tablet 50 mg PO TID 02/13/25
oxycodone-acetaminophen 5 mg-325 mg tablet 2 tab PO Q6HPRN PRN moderate pain 02/13/25
prednisolone acetate 1 % eye drops,suspension 1 drp LEFT EYE QID 02/13/25
semaglutide 0.25 mg or 0.5 mg (2 mg/3 mL) subcutaneous pen injector (Ozempic) 0.5 mg SC WEEKLY 02/13/25
sumatriptan succinate 25 mg tablet 25 mg PO Q2HPRN PRN headache 02/13/25
Review of Systems
-
History Source: Patient
A 12 point ROS was completed and negative except as noted: Yes
Constitutional: Reports No Symptoms
EENT: Reports No Symptoms
Respiratory: Reports No Symptoms
Cardiac: Reports No Symptoms
Abdomen/GI: Reports No Symptoms
: Reports No Symptoms
Musculoskeletal: Reports No Symptoms
Skin: Reports See HPI
Neurological: Reports No Symptoms
Endocrine: Reports No Symptoms
Hematologic/Lymphatic: Reports No Symptoms
Psych: Reports No Symptoms
Physical Exam
Vital Signs
Vital Signs
Temp Pulse Resp BP Pulse Ox
98.5 F 83 17 102/62 99
03/03/25 17:38 03/03/25 18:01 03/03/25 18:01 03/03/25 18:00 03/03/25 18:12
Physical Exam
General: Well Developed, Well Nourished and No Apparent Distress
HEENT: NormoCephalic, Moist mucous membranes and Atraumatic
Respiratory: Clear
Cardiac: S1/S2 and Regular Rhythm; No Murmur or Rub
GI: Soft, Non Tender, Non Distended and Normal Bowel Sounds; No Organomegaly
Rectal: Deferred by Provider
Musculoskeletal: No Clubbing, No Cyanosis, No Edema and Other (Left BKA, or right TMA)
Skin: Other (right transmetatarsal site erythema and foul smelling discharge ); No Rash
Neuro: AO x 3 and Nonfocal/grossly intact
Laboratory Results
-
03/03/25 17:59
03/03/25 17:59
Laboratory Results
Total Bilirubin 0.3 mg/dl (0.2-1.3) 03/03/25 17:59
AST 20 U/L (17-59) 03/03/25 17:59
ALT 15 U/L (0-50) 03/03/25 17:59
Alkaline Phosphatase 142 U/L (38-126) H 03/03/25 17:59
Data Reviewed
-
Diagnostic Radiology: Image Personally Visualized and interpreted
Medical Tests (Nuc Med, Echo, EKG etc): Image Personally Visualized and interpreted
Lab Data: Labs Reviewed by me
Old Records: Reviewed
Impression/Plan
-
IMPRESSION:
59-year-old with multimedical issues including chronic osteomyelitis on antibiotics, peripheral arterial disease status post multiple amputations including a left BKA and a recent right TMA, hypertension, agv-afekava-wjndvuhra diabetes,
hyperlipidemia, presents to the emergency from detention with concern for lethargy. Patient endorses depressed mood, decreased appetite. Shows no signs of acute infection. The wound itself is healing slowly does not appear to have any acute
infectious process at this time. Patient was found to be in LINDY with urinary retention.
PLAN:
LINDY - Acute urinary retention. B/S with > 1 L retention, catheter placement with approximately 2 L of retention. Patient w/o urge to void. Clear urine output. No abdominal pain. Denies urinary symptoms but U/A pending.
- admit to med/surg
- maintain urinary catheter for now and monitor creatinine
- renal dose all medications
- check random vancomycin now ( last dose was 03/02 at 21:22).
- holding lisinopril, hctz, acetazolamide
- ultrasound of kidney bladder
- gently hydration for now with NS
- nephrology consult
- consider urology consult in am
Osteomyelitis - multibacterial wound culture (B fragilis bld, staph stimulans & pavithra lusitaniae wnd)
- continue ertapenem 1 g daily
- check vancomycin level, appears to have started dosing at 750mg on 03/01 before LINDY evident
- pharmacy to redose
- podiatry consulted
PAD - patient is s/p limb flow limp salvage tx
- continue prasugrel
HTN
- holding lisonipril, hctz for now
- continue clonidine
- continue hydralazine
- holding acetazolamide (not entirely able to get history of why exactly using acetazolamide but written for 'fluid retention/swelling', no hx of pseudotumor, has glaucoma)
DM II
- hold metformin and farxiga for now
- sliding scale insulin
Anemia - Anemia of chronic illness. Hgb close to recent baseline
- monitoring for now
DVT PPX - heparin sq
Code status - Full Code
[2025-03-03 19:25] LABS: Urine Character Slightly Cloudy (Clear)
--- NOTE | 2025-03-03 19:58 | EDRN ---
total urine output after indwelling correa catheter placement: 2,105 mL
LORENZA Nassar and admitting hospitalist Dr Quevedo were both notified of above
[2025-03-03] MEDS: ALPHAGAN 0.2% EYE DROPS 1 DROP LEFT EYE (22:02)
[2025-03-03] MEDS: ATROPINE SULFATE 1% DROPS 1 DROP LEFT EYE (22:03)
[2025-03-03] MEDS: TRUSOPT 2% OPHTHALMIC SOLUTION 1 DROP OPHTH (22:08)
[2025-03-03] MEDS: PRED FORTE 1% EYE DROPS 1 DROP LEFT EYE (22:08)
[2025-03-03] MEDS: TIMOPTIC 0.5% OPHTHALMIC SOLUTION 1 DROP OPHTH (22:09)
[2025-03-03] MEDS: NEURONTIN 300 MG PO (22:14)
[2025-03-03] MEDS: FEOSOL 325 MG PO (22:15)
[2025-03-03] MEDS: APRESOLINE 50 MG PO (22:15)
[2025-03-03 22:33] LABS: Glucose - Point of Care 91 mg/dl (70-99)
[2025-03-03] MEDS: HEPARIN 5000 UNITS SC (23:11)
[2025-03-04] VITALS (7 sets, daily range): BP systolic 111–125; BP diastolic 60–66; BMI 28.2
[2025-03-04 03:43] LABS: Glucose - Point of Care 83 mg/dl (70-99)
--- NOTE | 2025-03-04 04:26 | PTCARENOTE ---
03/03 @ 2100 Pt received from ED via stretcher. Medsurg orders; AAOx3, lethargic but easily arousable. VSS, no c/o pain. Fingerstick glucose reading 91- pt requested OJ. correa catheter draining cloudy-yellow urine with sediment. Per MD order, IVF
infusing through RPICC. Air overlay placed on bed. Wounds documented- refer to worklist. PMH and medications obtained from medical records. call walker within reach.
[2025-03-04 05:35] LABS: Hematocrit 21.8 % (39.0-52.0); Hemoglobin 6.9 g/dL (13.0-18.0); Mean Corp Hgb Conc. 31.7 g/dL (33.0-37.0); Mean Corpuscular Volume 90.8 fL (80.0-94.0); Platelet Count 421 10^3/uL (130-400); Red Cell Dist. Width 17.2 % (11.5-14.5)
[2025-03-04 05:37] LABS: Blood Urea Nitrogen 37 mg/dl (9-20); Calcium 8.5 mg/dl (8.4-10.2); Carbon Dioxide 20 mmol/L (22-30); Chloride 109 mmol/L (98-107); Estimated Creatinine Clearance 30 ml/min; Glucose 70 mg/dl (70-99); Magnesium 2.0 mg/dl (1.6-2.3); Potassium 3.1 mmol/L (3.5-5.1); Sodium 136 mmol/L (135-145); eGFR 24.31
[2025-03-04] MEDS: KCL 40 MEQ PO ×2 (06:09→11:50)
[2025-03-04 07:55] LABS: Glucose - Point of Care 77 mg/dl (70-99)
[2025-03-04] MEDS: NEURONTIN 300 MG PO ×3 (08:02→22:26)
[2025-03-04] MEDS: INVANZ 60 MG IV (08:03)
[2025-03-04] MEDS: CRESTOR 20 MG PO (08:04)
[2025-03-04] MEDS: CATAPRES 0.1 MG PO (08:04)
[2025-03-04] MEDS: NORVASC 10 MG PO (08:05)
[2025-03-04] MEDS: HEPARIN 5000 UNITS SC ×2 (08:05→16:14)
[2025-03-04] MEDS: APRESOLINE 50 MG PO ×3 (08:05→22:26)
[2025-03-04] MEDS: LOW STRENGTH ASPIRIN 81 MG PO (08:05)
[2025-03-04] MEDS: ALPHAGAN 0.2% EYE DROPS 1 DROP LEFT EYE ×2 (08:06→20:46)
[2025-03-04] MEDS: ATROPINE SULFATE 1% DROPS 1 DROP LEFT EYE ×2 (08:06→20:47)
[2025-03-04] MEDS: TIMOPTIC 0.5% OPHTHALMIC SOLUTION 1 DROP OPHTH ×2 (08:07→20:47)
[2025-03-04] MEDS: TRUSOPT 2% OPHTHALMIC SOLUTION 1 DROP OPHTH ×2 (08:07→20:46)
[2025-03-04] MEDS: SANTYL OINTMENT 1 APPLIC TOPICAL (08:07)
[2025-03-04] MEDS: PRED FORTE 1% EYE DROPS 1 DROP LEFT EYE ×4 (08:07→22:26)
[2025-03-04] MEDS: EFFIENT 10 MG PO (08:08)
[2025-03-04 09:12] LABS: Hematocrit 23.1 % (39.0-52.0); Hemoglobin 7.2 g/dL (13.0-18.0)
--- NOTE | 2025-03-04 09:40 | W.CON.NEPH ---
Consultation
-
Date/Time Consultation Requested: 03/04/2025 7:15 AM
Date/Time Consultation Performed: 03/04/2025 930 AM
Requesting Provider: Dr. Reyes
Performing Provider: Dr. Pickard
Reason for Consultation: Acute kidney injury
Medical History
-
Chief Complaint: Acute kidney injury
History of Present Illness:
59-year-old with past medical history of rzr-dhslyxn-ugyzdkwry diabetes on Ozempic and metformin, hypertension (on lisinopril hydralazine hydrochlorothiazide and amlodipine )and hyperlipidemia diabetic retinopathy who has significant peripheral
artery disease with previous interventions in the past including lower extremity bypass right partial hallux amputation resection of the proximal phalanx and metatarsal status post osteomyelitis. Originally presented to [facility] on
February 13, 2025 with right foot osteomyelitis . He underwent right metatarsal amputation. At that time we were also consulted for acute kidney injury when his creatinine was up to 1.9 on admission. There was an obstructive component which
required Bustamante catheter for a few days time. He was eventually discharged with a creatinine of 1.1 on 02/22/25. His acute kidney injury was presumed to be due to prerenal causality's with hypotension in association with his infection. He was
discharged on 6-week duration of antibiotic therapy including ertapenem and vancomycin. Bustamante catheter was placed in the emergency room due to significant urinary retention. He presented to the hospital with lethargy and acute kidney injury with
his creatinine up to 3.1 and nephrology was consulted
Past Medical History
Past medical history of cfk-vqtfejd-knqnbtdlv diabetes, hypertension and hyperlipidemia
(PAD status post angioplasty right proximal anterior tibial artery/right posterior tibial artery, right partial hallux amputation, resection of base of proximal phalanx and partial first metatarsal, osteomyelitis status post transmetatarsal
amputation, anemia of chronic disease, type 2 diabetes, cons)
Social History
Tobacco: Non-Smoker
Alcohol: None
Family History
Family History: Not Pertinent
Allergies / Home Medications
Allergy/AdvReac Type Severity Reaction Status Date / Time
No Known Allergies Allergy Verified 03/03/25 17:43
�Medication �Instructions �Recorded �Confirmed �Type
rosuvastatin 20 mg tablet 20 mg PO DAILY High cholesterol 30 09/14/24 02/15/25 Rx
days #30 tabs
clonidine HCl 0.1 mg tablet 0.1 mg PO DAILY Blood pressure 30 09/15/24 02/15/25 Rx
days #30 tabs
dapagliflozin propanediol 10 mg 10 mg PO DAILY Diabetes 30 days 09/15/24 02/15/25 Rx
tablet #30 tabs
hydrochlorothiazide 25 mg tablet 25 mg PO DAILY Fluid 10/18/24 02/15/25 History
Retention/Swelling
lisinopril 40 mg tablet 40 mg PO DAILY Blood pressure 10/21/24 02/15/25 History
amlodipine 10 mg tablet (Norvasc) 10 mg PO DAILY Blood Pressure 12/03/24 02/15/25 History
metformin 750 mg tablet,extended 750 mg PO DAILY Diabetes 12/03/24 02/15/25 History
release 24 hr
acetazolamide 250 mg tablet 500 mg PO BID Fluid 02/13/25 02/15/25 History
Retention/Swelling
atropine 1 % eye drops 1 drp LEFT EYE BID Eye Condition 02/13/25 02/15/25 History
brimonidine 0.2 % eye drops 1 drp LEFT EYE BID Eye Condition 02/13/25 02/15/25 History
collagenase clostridium histo. 250 1 applic topical DAILY Autoimmune 02/13/25 02/15/25 History
unit/gram topical ointment (Santyl) Disorder
dorzolamide 22.3 mg-timolol 6.8 1 drp LEFT EYE BID Eye Condition 02/13/25 02/15/25 History
mg/mL eye drops
ferrous fumarate 324 mg (106 mg 324 mg PO Q48H Supplement 02/13/25 02/15/25 History
iron) tablet
hydralazine 50 mg tablet 50 mg PO TID Blood Pressure 02/13/25 02/15/25 History
oxycodone-acetaminophen 5 mg-325 2 tab PO Q6HPRN PRN moderate pain 02/13/25 02/15/25 History
mg tablet
prednisolone acetate 1 % eye 1 drp LEFT EYE QID Eye Condition 02/13/25 02/15/25 History
drops,suspension
semaglutide 0.25 mg or 0.5 mg (2 0.5 mg SC WEEKLY Diabetes 02/13/25 02/15/25 History
mg/3 mL) subcutaneous pen injector
(Ozempic)
sumatriptan succinate 25 mg tablet 25 mg PO Q2HPRN PRN headache 02/13/25 02/15/25 History
aspirin 81 mg chewable tablet 81 mg PO DAILY Heart 02/14/25 02/15/25 History
Disease/Condition
Ertapenem [Invanz] 1,000 mg 120 mls/hr IV Q24H 02/21/25 Rx
VANCOMYCIN Pharmacy to Dose As Directed mls/hr IV PER PROTOCOL 02/21/25 Rx
[VANCOCIN Pharmacy to Dose] 1 each
fluconazole 200 mg tablet 400 mg (2 x 200 mg) PO DAILY #30 02/21/25 Rx
tabs
gabapentin 300 mg capsule 300 mg PO TID #30 caps 02/21/25 Rx
prasugrel HCl 10 mg tablet 10 mg PO DAILY #30 tabs 02/21/25 Rx
Review of Systems
-
No chest pain or shortness of breath. Eating is improved
All other systems: Negative unless noted
Musculoskeletal: Other (Left AKA, right TMA)
Physical Exam
Vital Signs
Vital Signs
Temp Pulse Resp BP Pulse Ox
98.6 F 84 16 112/63 100
03/04/25 07:51 03/04/25 08:04 03/04/25 07:51 03/04/25 08:04 03/04/25 07:51
Lab Results
WBC 9.6 10^3/uL (4.8-10.8) 03/04/25 04:37
RBC 2.40 10^6/uL (4.70-6.10) L 03/04/25 04:37
Hgb 7.2 g/dL (13.0-18.0) L 03/04/25 09:01
Hct 23.1 % (39.0-52.0) L 03/04/25 09:01
Plt Count 421 10^3/uL (130-400) H 03/04/25 04:37
Sodium 136 mmol/L (135-145) 03/04/25 04:37
Potassium 3.1 mmol/L (3.5-5.1) L 03/04/25 04:37
Chloride 109 mmol/L (98-107) H 03/04/25 04:37
Carbon Dioxide 20 mmol/L (22-30) L 03/04/25 04:37
BUN 37 mg/dl (9-20) H 03/04/25 04:37
Creatinine 2.9 mg/dL (0.7-1.3) H 03/04/25 04:37
eGFR 24.31 03/04/25 04:37
Glucose 70 mg/dl (70-99) 03/04/25 04:37
Calcium 8.5 mg/dl (8.4-10.2) 03/04/25 04:37
Albumin 3.4 g/dl (3.5-5.0) L 03/03/25 17:59
Physical Exam
General no acute distress , awake alert and orient x 3, chronically ill-appearing [place]
Neck exam no JVD, no cervical adenopathy
lungs clear to auscultation bilateral
heart regular S1-S2 positive
abdomen soft nontender positive bowel sounds, no hepatosplenomegaly
extremities left BKA, right TMA
Neurologically nonfocal alert and oriented x 3
Skin no lesions no abrasions no petechiae
Psych normal affect no bizarre behavior
Vascular: Weak radial pulses, right anterior tibialis pulse not palpable
: Bustamante catheter
Data Reviewed
-
Radiology: Report Reviewed by me (Chest x-ray report reviewed by me: no chf or pneumonic process)
Labs: Labs Reviewed by me (BMP CBC)
Old Records: Reviewed (Reviewed nephrology consult from February 2025 for acute kidney, EMR labs reviewed creatinine 1.1 as of 02/22/2025)
Assessment/Plan
-
Impression.
Acute kidney injury creatinine 3.1
PAD/osteo status post BKA, recent right TMA
multibacterial wound culture (B fragilis bld, staph stimulans & deni lusitaniae wnd)
Diabetes. Uncontrolled hemoglobin A1c is as high as 10.4> diabetic for 18 years with diabetic retinopathy
Hypertension now with hypotension
Mild hyponatremia 133
CKD: Baseline creatinine 1.1
Plan.
- Patient now with noted urinary retention and Bustamante catheter placement last evening, greater than 1 L noted after catheter insertion
-Holding BERE inhibitor and metformin in setting of acute kidney injury
-Kidney and bladder ultrasound was ordered by primary team
- Antibiotics to be renally dosed if creatinine does not continue to improved with Bustamante catheter placement we will check urine eosinophils to assess for possible drug-induced interstitial nephritis
-Maintain current oral antihypertensives otherwise for hypertension control
- Replete potassium
-Okay to maintain isotonic IV fluids for the day
--- NOTE | 2025-03-04 10:02 | PHA.VAN.IN ---
Assessment
- Assessment
Renal Function: SCR Appears Elevated from baseline
Current course regimens prior to current admission:
02/13 admission: patient receiving vancomycin dosing by random levels with fluctuations in clearance
02/21: SCR and level trend improving and started on Vanc 1250mg Q48H
As an outpatient, reportedly adjusted to Vanc 750mg QPM (renal function improving prior to discharge) - last dose 03/02 21:22 per notes
Level assessment:
03/03/25 03/04/25
20:10 09:01
Random Vancomycin 30.7 26.1
Level of 30.7 drawn ~22.5H after prior reported dosing
Level of 26.1 drawn ~13H after previous level of 30.7
Ke = 0.0126
half-life = 55H
Calculations estimate that level will maintain > 10 for over 72H but SCR slightly decreased today
SCR decreased but remains elevated from baseline
- Previous Dosing Experience
Date of Regimen: December 2024
Patient's SCR is: Elevated compared to previous dosing experience
Patient's weight is: Decreased compared to previous dosing experience (patient weights 10-15kg less)
Patient received multiple dosing regimens during December 2024 regimen:
12/14/24
Vanc 1250mg Q12H provided AUC 583, Cmax 29.4, Cmin 19.8, t1/2 18.4 H after 4th maintenance dose
BUN = 15, SCR = 1, weight = 103.5 kg
Regimen adjusted to Vanc 1750mg Q24H predicting AUC 423, Peak 25.8, Trough 11.3 based on patient-specific PK
12/18/24 Repeat levels obtained on Vanc 1750mg Q24H regimen providing AUC 505, Cmax 29.9, Cmin 14, half-life 20.2H
Additional accumulation noted from 12/14/24 calculations (not unexpected with prolonged half-life)
Half-life relatively stable
BUN = 17, SCR = 0.9
12/20/24 Regimen reduced to Vanc 1500mg Q24H to provide lowest effective dosing - predicted AUC 444, Peak 26.5, Trough 12.2 based on patient-specific PK; no levels obtained on this regimen
If renal function improves to baseline, likely would still require Q24H interval as CrCl was not predictive of patient's vanc clearance during December 2024 admission based on half-lives
Plan
- Plan
Maintenance Regimen: vancomycin dosing by level
Monitorin/22 0600
Continue to hold further dosing and follow random levels to trend
Pharmacokinetics Vancomycin I
- -
Patient Age: 59
Patient Sex: Male
Vancomycin Day #: 20 (initiated during prior admission on 02/13)
Indication: [facility]
Requesting Provider: Dr. Quevedo
Pertinent Antimicrobial Allergies:
NKDA
Height / Weight:
Height 5 ft 11 in
Actual Weight 91.807 kg
- Vital Signs / Lab Results
Temp Pulse Resp BP Pulse Ox
98.6 F 84 16 112/63 100
03/04/25 07:51 03/04/25 08:04 03/04/25 07:51 03/04/25 08:04 03/04/25 07:51
Lab Results - Hematology
03/03/25 03/04/25
17:59 04:37
WBC 11.8 H 9.6
Lab Results - Chemistry
03/03/25 03/04/25
17:59 04:37
BUN 38 H 37 H
Creatinine 3.1 H 2.9 H
Estimated Creat Clear 29 30
Albumin 3.4 L
Lab Results - Urine
03/03/25
19:04
Urine Nitrite (Reflex) Negative
Leukocyte Esterase Rfl Negative
Urine WBC (Reflex) 3-5
Ur Squamous Epith Cells 3-5
Urine Bacteria (Reflex) Moderate A
[2025-03-04] MEDS: NSS 1000 IV (10:12)
[2025-03-04 12:12] LABS: Glucose - Point of Care 75 mg/dl (70-99)
--- NOTE | 2025-03-04 12:16 | W.CS.POD ---
Addendum entered and electronically signed by Vivien Heath DPM 03/04/25 14:42:
Discussed with Dr. De La Garza, says that we can wait for another 2 to 3 wks for debridement if the wound is not infected since the Limflow was done 2 wks ago and typically no debridement or any resection for 6 wks is recommended
Original Note:
Consult Summary - Podiatry
-
59 yo male with extensive peripheral vascular disease , had LT BKA in 09/2024 and eventual had Rt foot multiple levels of amputation with recent TMA on 2024, HE had wound dehiscence and infected at TMA site and was admitted in February 13,
vascular surgery done Limflow as a last resort on Feb 17 2025 , HE was sent to rehab with retirement IV Abx due to osteomyelitic changes at hiS TMA site plan was to try and attempt debridement of Rt TMA and wound VAC. He was sent to the hosp from
his rehab center due to lethargy . HE is currently in no acute distress, no active purulence form Rt TMA site.
Exam : Rt foot no edema, Rt TMA site with dry necrotic wound edges probes to bone. No foul odor, no signs of any abscess noted
Rt heel also with dry necrotic skin changes noted, no drainage, no local erythema
A/p: Rt foot dehisced wound with dry necrotic edges
Osteomyelitic changes distal metatarsals especially 1st
PAD
Diabetic vascular disease.
Plan: Patient evaluated at bedside
Will D/W vascular surgery if the wound is ok to be debrided and wound vac
Will cont with local wound care with santyl, dry gauze, abd pad and heel relief boots.
Patient is aware of his high risk for limb loss
Podiatry will follow
--- NOTE | 2025-03-04 15:32 | WOUNDNOTE ---
BUTTOCKS AND SACRUM
--- NOTE | 2025-03-04 15:35 | WOUNDNOTE ---
WON RN note: Patient admitted for acute kidney injury, chronic osteomyelitis of R foot.
See H&P for complete history.
PMH: Obesity, IDDM,HTN,ORIF pelvic fracture, L BKA 09/04/24, R TM-amp R heel PI.
Wound Location and type/assessment: Patient known to service, last seen 02/21/25. Now admitted with dry brown eschar to R heel, unstageable PI. dry dressing in use. Fiber filled heel boot at bedside. Confirmed with Dr. Heath no need for
wound care consult, Dr. Hall will put in wound care orders for amp sites. No strike through drainage of both amp sites, dressings done by Podiatry this morning. Turned with assist of nurse Cece, skin on sacrum and buttocks worse compared to last
seen. Patient states he has a foam cushion he uses for his chair. Suspect he sits most of day. Incontinent of stool at times. PCT assisted and cleaned up small stool when turned. Sacrum with stage 2 PI, red base, small drainage. B/L buttocks with
scarring and scattered openings, suspect stage 2 PI mixed with incontinent associated skin damage. Patient more sluggish and needing help turning compared to last admissions.
Appetite: Good appetite patient states. Encourage protein in diet to help with wound healing.
Pressure redistribution devices in place: On air overlay, Switched to Versa care Air mattress, with 3 assist. Heel offloaded with TruVue lite fiber filled boot. L BKA air cushion placed underneath.
Plan: R& L amp site dressings per Dr. Heath's order, nurse aware. Applied Xeroform to sacrum and buttocks followed by sacral silicone bordered foam. Instructed patient the importance of offloading and turning when in bed and in the chair,
states he understands. Will confirm orders with hospitalist, updated nurse and care plan.
Note to case management of equipment requested for discharge: Air mattress and Roho Cushion for chair.
Recommend follow up with [facility] Operator.
--- NOTE | 2025-03-04 16:50 | W.PN.HOSP.TC ---
Addendum entered and electronically signed by Sushant Guallpa MD 03/04/25 22:41:
Attending Addendum-
I saw and evaluated the patient. I reviewed the resident�s note and agree with findings and plan as documented in the resident�s note. Sub: patient feels fatigued but no other complaints. 'They freaked out at [facility] because i was loopy after
i got Percocet' Full 12 point ROS reviewed and negative except as documented Exam: Vitals reviewed in chart GEN-NAd heart RRR lungs clear abd soft LE left AKA right TMA bandaged
PLAN:
#LINDY from acute urinary retention
- catheter placement with approximately 2 L retained
- cont correa, start flomax
- renal dose all medications
- vancomycin dosing per pharmacy
- holding lisinopril, hctz, acetazolamide
- ultrasound of kidney bladder-P
- gently hydration for now with NS
- nephrology input appreciated- check urine eos, cont gentle IVF
# Right TMA Osteomyelitis
- cont invanz and vancomycin- pharmacy to redose
- abx x 6 weeks course
- podiatry and wound care consulted
# Hypokalemia- replete
#PAD
-s/p limb flow limb salvage tx of RLE on 02/17
-left AKA-06/2024
-right TMA-12/2024
-continue prasugrel
#HTN
- holding lisinopril, hctz for now
- continue clonidine
- continue hydralazine
- holding acetazolamide-unclear why he is on this
#DM II
- hold metformin and farxiga for now
- sliding scale insulin
#Symptomatic Anemia - Anemia of chronic disease
- acutely lower
- transfuse 1 unit due to symptoms
- repeat CBC in 6 hours
DVT PPX - heparin sq
Code status - Full Code
Dispo- from [facility]
ACP
Patient consented to discuss, was alone, time spent explanation of advance directives, changes in health status, patient�s health care wishes if the patient becomes unable to make health decisions, goals of care, code status, and prognosis 'i wanna
go the beach'- 16 minutes
Time spent coordinating care, review of plan of care with resident, personally reviewed previous records in EMR, med rec, labs, radiology, d/w nursing, total time documented is exclusive of any additional time listed that was spent in advance care
planning discussion -�53 minutes
Original Note:
Today's Communication/Plan
-
- Hemoglobin 6.9 this morning, blood consent, type and screen, ordered 1 unit PRBCs for transfusion
- Consulted wound care
- Per nephrology recs continue to hold EULOGIO inhibitor and metformin
- Kidney and bladder ultrasound ordered
- Pharmacy currently dosing Vanco by random levels and not giving scheduled dosing
Assessment / Plan
Assessment / Plan
#LINDY
- Creatinine 3.1, now improved to 2.9
- Patient with new urinary retention and Correa catheter placement with greater than 1 L noted after catheter insertion
- Nephrology consulted
- Antibiotics to be renally dosed if creatinine does not continue to improve
- IV fluids today per nephrology recommendation
- Continue oral hypertensive per nephrology recommendation
- Pending kidney and bladder ultrasound
#Osteomyelitis
- Patient with recent admission for multi bacterial wound s/p IV antibiotics and limb flow
- Patient on plan 6 weeks antibiotic course: Zosyn, vancomycin, fluconazole
- Random vancomycin 30.7 improved to 26.1 this morning
- Pharmacy currently dosing Vanco by random levels and not giving scheduled dosing
- Pharmacy recommends consulting ID ahead of discharge for vancomycin dosing as we may need to change and update outpatient orders
#Anemia of chronic disease
- Hemoglobin 6.9 this morning, symptomatic with generalized weakness
- Patient consented to blood transfusion
- Ordered 1 unit packed red blood cells, H&H 1 hour after transfusion
#Peripheral arterial disease
- S/p limb flow salvage procedure on 02/17/2025
- Patient continued on prasugrel and aspirin
#Diabetes mellitus
- Continue to hold metformin and proceed
- SSI
- Recent A1c 12/03/2024 7.7%
Anticipated Discharge: 24 - 48 hours
Subjective/Interval History
-
Date of Service: March 04, 2025
Patient seen this morning at the bedside. Patient states that he was brought to the hospital because he thought he was feeling lethargic and confused, although patient believes that he was at his baseline. Patient does feel weaker than normal.
Objective Data
-
Labs:
Laboratory Results
03/04/25 03/04/25 03/04/25
04:37 09:01 15:49
WBC 9.6
Hgb 6.9 L* 7.2 L Pending
Hct 21.8 L 23.1 L Pending
Plt Count 421 H
Sodium 136
Potassium 3.1 L
Chloride 109 H
Carbon Dioxide 20 L
BUN 37 H
Creatinine 2.9 H
Glucose 70
Calcium 8.5
Vital Signs:
Vital Signs
Temp Pulse Resp BP Pulse Ox
99.0 F 79 16 116/62 97
03/04/25 16:23 03/04/25 16:23 03/04/25 16:23 03/04/25 16:23 03/04/25 16:23
I&O
03/03/25 03/04/25 03/05/25
06:59 06:59 06:59
Intake Total 1125 / 1125 0 / 0
Output Total 650 / 650 550 / 550
Balance 475 / 475 -550 / -550
Review of Systems
-
History Source: Patient
Constitutional: Reports Weakness
EENT: Reports Decreased Vision (Diabetic retinopathy in the right eye, glaucoma in the left eye)
Respiratory: Reports No Symptoms
Cardiac: Reports No Symptoms
Abdomen/GI: Reports No Symptoms
Genitourinary: Reports No Symptoms
Skin: Reports Other (Right transmetatarsal amputation bandage by wound care)
Neuro: Reports No Symptoms
Endocrine: Reports No Symptoms
Hematologic / Lymphatic: Reports No Symptoms
Allergy / Immunology: Reports No Symptoms
Physical Exam
-
General: No Apparent Distress
Respiratory: Clear to Auscultation
Cardiac: Regular Rhythm
GI: Soft, Nontender and Nondistended
Musculoskeletal: No Edema
Skin: Warm, Dry and Other (Amputation sites wrapped with wound dressing and Eulogio bandages)
Neuro: Awake, Alert and Oriented
Psych: Calm
[2025-03-04 18:08] LABS: Glucose - Point of Care 85 mg/dl (70-99)
--- NOTE | 2025-03-04 18:18 | PTCARENOTE ---
1 unit of PRBCs infusing currently, VSS, labs to be drawn 1 hour after infusion is complete. Oncoming RN to be made aware.
[2025-03-04 20:33] LABS: Hematocrit 27.1 % (39.0-52.0); Hemoglobin 8.6 g/dL (13.0-18.0)
[2025-03-04 22:29] LABS: Glucose - Point of Care 80 mg/dl (70-99)
[2025-03-05] MEDS: HEPARIN 5000 UNITS SC ×4 (00:05→23:06)
[2025-03-05] MEDS: NSS 1000 IV ×3 (00:05→23:07)
[2025-03-05 04:54] LABS: Hematocrit 26.6 % (39.0-52.0); Hemoglobin 8.8 g/dL (13.0-18.0); Mean Corp Hgb Conc. 33.1 g/dL (33.0-37.0); Mean Corpuscular Volume 89.9 fL (80.0-94.0); Platelet Count 425 10^3/uL (130-400); Red Cell Dist. Width 16.6 % (11.5-14.5)
[2025-03-05 05:15] VITALS: BMI 29.1
[2025-03-05 05:16] LABS: Blood Urea Nitrogen 30 mg/dl (9-20); Calcium 8.9 mg/dl (8.4-10.2); Carbon Dioxide 19 mmol/L (22-30); Chloride 113 mmol/L (98-107); Estimated Creatinine Clearance 39 ml/min; Glucose 75 mg/dl (70-99); Magnesium 1.9 mg/dl (1.6-2.3); Potassium 3.7 mmol/L (3.5-5.1); Sodium 139 mmol/L (135-145); eGFR 33.87
--- NOTE | 2025-03-05 07:54 | PHA.VAN.FU ---
Vancomycin Assessment / Plan
- Assessment
Renal Function: SCR Decreasing
WBC's are: WNL
- Assessment - Therapeutic Drug Monitoring
Random Level: 21.1 DRAWN ~55 HRS AFTER PREVIOUS VANCO 750MG
- Dosing Plan
Dosing by Level: Hold off on dosing today
- Monitoring Plan
Random Level: 03/06 @0600
- Follow Up
Pharmacy will continue to follow.
Vancomycin Follow UP
- -
Patient Age: 59
Patient Sex: Male
Vancomycin Day #: 21 (initiated during prior admission on 02/13)
Indication: Bone And Joint
Requesting Provider: Dr. Quevedo
Pertinent Antimicrobial Allergies:
NKDA
Height / Weight:
Height 5 ft 11 in
Actual Weight 94.574 kg
- Vital Signs / Lab Results
Temp Pulse Resp BP Pulse Ox
98.7 F 77 16 125/66 97
03/04/25 22:25 03/04/25 22:26 03/04/25 22:25 03/04/25 22:26 03/04/25 22:25
Lab Results - Hematology
03/03/25 03/04/25 03/05/25
17:59 04:37 04:26
WBC 11.8 H 9.6 9.1
Lab Results - Chemistry
03/03/25 03/04/25 03/05/25
17:59 04:37 04:26
BUN 38 H 37 H 30 H
Creatinine 3.1 H 2.9 H 2.2 H
Estimated Creat Clear 29 30 39
Albumin 3.4 L
Microbiology Results
03/03/25 19:04 Urine Culture - Final
Urine NO GROWTH
Therapeutic Drug Monitoring
Random Vancomycin 21.1 ug/ml 03/05/25 04:26
[2025-03-05 08:36] VITALS: BP 128/65
[2025-03-05 08:36] LABS: Glucose - Point of Care 79 mg/dl (70-99)
[2025-03-05 08:53] LABS: Iron 41 ug/dl (49-181)
[2025-03-05 09:02] LABS: Total Iron Binding Capacity 172 ug/dl (261-462)
[2025-03-05 09:54] LABS: Ferritin 592.0 ng/ml (17.9-464.0)
[2025-03-05 10:09] LABS: Vitamin B12 626 pg/ml (239-931)
[2025-03-05] MEDS: INVANZ 60 MG IV (10:19)
[2025-03-05] MEDS: EFFIENT 10 MG PO (10:20)
[2025-03-05] MEDS: CRESTOR 20 MG PO (10:20)
[2025-03-05] MEDS: NORVASC 10 MG PO (10:21)
[2025-03-05] MEDS: NEURONTIN 300 MG PO ×3 (10:21→23:05)
[2025-03-05] MEDS: APRESOLINE 50 MG PO ×3 (10:21→23:19)
[2025-03-05] MEDS: ALPHAGAN 0.2% EYE DROPS 1 DROP LEFT EYE ×2 (10:21→20:11)
[2025-03-05] MEDS: LOW STRENGTH ASPIRIN 81 MG PO (10:21)
[2025-03-05] MEDS: CATAPRES 0.1 MG PO (10:21)
[2025-03-05] MEDS: ATROPINE SULFATE 1% DROPS 1 DROP LEFT EYE ×2 (10:22→20:11)
[2025-03-05] MEDS: SANTYL OINTMENT 1 APPLIC TOPICAL (10:23)
[2025-03-05] MEDS: TIMOPTIC 0.5% OPHTHALMIC SOLUTION 1 DROP OPHTH ×2 (10:24→20:11)
[2025-03-05] MEDS: PRED FORTE 1% EYE DROPS 1 DROP LEFT EYE ×4 (10:24→23:10)
[2025-03-05] MEDS: TRUSOPT 2% OPHTHALMIC SOLUTION 1 DROP OPHTH ×2 (10:25→20:12)
--- NOTE | 2025-03-05 13:24 | W.PN.HOSP.TC ---
Today's Communication/Plan
-
IV fluids
Reconcile medications
Add Diflucan
ID evaluation
Continue antibiotics
Assessment / Plan
Assessment / Plan
59-year-old male presented with lethargy. Patient had left AKA in June and right TMA in December-12/16/2024. He was admitted for osteomyelitis and treated with IV antibiotics. He started noticing increased pain in February. He was admitted and
blood cultures were positive for bacteroids fragilis and wound culture showed staph and Pavithra. He opted for a LimFlow salvage procedure instead of BKA. This got good results with excellent Doppler signals. He was started on prasugrel. Patient
was discharged on vancomycin, Invanz and fluconazole.
Chest x-ray-no acute disease
Patient is awake and alert
Aware that this is February 2025 and where he is. Does not remember the exact date
States he feels all right
Cardiovascular system S1-S2 appreciated
Chest clear to auscultation
Abdomen soft and nontender
Right TMA site with dark discoloration dry gangrene?
Left BKA site small ulcer noted with dressing
Previous hospitalization reviewed, previous procedure notes reviewed
# Acute kidney injury with a creatinine of 3.1 and mild metabolic acidosis
CKD stage II
Bladder scan more than 1 L retention-Bustamante catheter placed
Creatinine trending down
Continue to hold acetazolamide, lisinopril hydrochlorothiazide, metformin
Renally dose vancomycin and follow BMP
Gentle hydration
Ultrasound of the kidneys pending
# Hypokalemia-better
# Osteomyelitis
Earlier this month blood cultures showed bacteroids and wound cultures with MRSA and Pavithra Lusitaniae
On ertapenem, vancomycin and fluconazole
Podiatry consulted
Will consult ID also
# Peripheral artery disease
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
Status post balloon angioplasty of the [employer] 2ND SHIFT, transcatheter arterialization of the deep veins right lower extremity- LimFlow procedure with placement of overlapping LimFlow stents. Balloon angioplasty of the deep veins including pedal venous system
by Dr. De La Garza on 02/17/2025
Podiatry evaluation appreciated. As per discussion with vascular wait for 2 to 3 weeks for debridement of the wound is not infected since the limb flow was done 2 weeks ago. No debridement or resection recommended for 6 weeks.
Continue wound care
Patient is at high risk for limb loss on the right
# Poorly controlled diabetes with diabetic retinopathy-hemoglobin A1c 5.7 on 02/14/2025-not reliable
Accu-Cheks and sliding scale coverage
Hold Ozempic, metformin, dapagliflozin
Continue gabapentin for neuropathy
# Hypertension-continue amlodipine, clonidine, hydralazine. Holding lisinopril hydrochlorothiazide
# Anemia -acute on chronic-status post 1 unit of packed red blood cell this admission. Heme test stools, Iron studies adequate.
# Mild thrombocytosis-likely secondary to chronic [id number]
# Hyperlipidemia-continue statin
# Obesity with a BMI of 29
# DVT prophylaxis-subcutaneous heparin
# Full code
Discussed with pharmacy
High risk situation in terms of his right leg. At risk for limb loss.. Continue antibiotics and watch. Await podiatry plans. Watch blood sugars closely
Part of this note was created using voice recognition system. Occasional wrong word or��sound alike� substitutions may have inadvertently occurred due to the inherent limitations of voice recognition software. If noted kindly bring it to my
attention for correction.
Anticipated Discharge: > 48 hours
Subjective/Interval History
-
Date of Service: March 05, 2025
Objective Data
-
Labs:
Laboratory Results
03/05/25
04:26
WBC 9.1
Hgb 8.8 L
Hct 26.6 L
Plt Count 425 H
Sodium 139
Potassium 3.7
Chloride 113 H
Carbon Dioxide 19 L
BUN 30 H
Creatinine 2.2 H
Glucose 75
Calcium 8.9
Vital Signs:
Vital Signs
Temp Pulse Resp BP Pulse Ox
99.4 F 85 16 128/65 98
03/05/25 08:36 03/05/25 08:36 03/05/25 08:36 03/05/25 08:36 03/05/25 08:36
I&O
03/04/25 03/05/25 03/06/25
06:59 06:59 06:59
Intake Total 1125 / 1125 1567 / 1567
Output Total 650 / 650 3645 / 3645
Balance 475 / 475 -2077 /
[2025-03-05 13:56] LABS: Glucose - Point of Care 83 mg/dl (70-99)
[2025-03-05] MEDS: DIFLUCAN 400 MG PO (14:00)
--- NOTE | 2025-03-05 15:01 | W.PN.NEPH.PH ---
Today's Communication / Plan
-
Meghan improving with correa and IVFs
Assessment/Plan
-
Impression.
Acute kidney injury creatinine 3.1
PAD/osteo status post BKA, recent right TMA
multibacterial wound culture (B fragilis bld, staph stimulans & deni lusitaniae wnd)
Diabetes. Uncontrolled hemoglobin A1c is as high as 10.4> diabetic for 18 years with diabetic retinopathy
Hypertension now with hypotension
Mild hyponatremia 133
CKD: Baseline creatinine 1.1
Plan.
- Patient now with noted urinary retention and Correa catheter placement last evening, greater than 1 L noted after catheter insertion
-creatinine down to 2.2
-Holding BERE inhibitor and metformin in setting of acute kidney injury
-Kidney and bladder ultrasound was ordered by primary team
- Antibiotics to be renally dosed if creatinine does not continue to improved with Correa catheter placement we will check urine eosinophils to assess for possible drug-induced interstitial nephritis
-Maintain current oral antihypertensives otherwise for hypertension control
- Replete potassium
-maddy d/c further IVfs
-
-
Date of Service: March 05, 2025
CC / HPI / ROS
-
Chief Complaint:
MEGHAN
History of Present Illness:
creatinine
hemodynamically stable
Review of Systems:
nonoligurc
correa
Labs
-
Labs:
WBC 9.1 10^3/uL (4.8-10.8) 03/05/25 04:26
RBC 2.96 10^6/uL (4.70-6.10) L 03/05/25 04:26
Hgb 8.8 g/dL (13.0-18.0) L 03/05/25 04:26
Hct 26.6 % (39.0-52.0) L 03/05/25 04:26
Plt Count 425 10^3/uL (130-400) H 03/05/25 04:26
Sodium 139 mmol/L (135-145) 03/05/25 04:26
Potassium 3.7 mmol/L (3.5-5.1) 03/05/25 04:26
Chloride 113 mmol/L (98-107) H 03/05/25 04:26
Carbon Dioxide 19 mmol/L (22-30) L 03/05/25 04:26
BUN 30 mg/dl (9-20) H 03/05/25 04:26
Creatinine 2.2 mg/dL (0.7-1.3) H 03/05/25 04:26
eGFR 33.87 03/05/25 04:26
Glucose 75 mg/dl (70-99) 03/05/25 04:26
Calcium 8.9 mg/dl (8.4-10.2) 03/05/25 04:26
Albumin 3.4 g/dl (3.5-5.0) L 03/03/25 17:59
Physical Exam
-
Vital Signs:
Vital Signs
Temp Pulse Resp BP Pulse Ox
99.4 F 85 16 128/65 98
03/05/25 08:36 03/05/25 08:36 03/05/25 08:36 03/05/25 08:36 03/05/25 08:36
Cardiovascular:: Regular rate and rhythm
Respiratory:: Bilateral: CTA
Lung Excursion:: Normal
Abdomen:: Nontender and Soft
Extremity Edema:: +1: Right:
Correa Catheter: Yes
Other Findings::
left BKA stump
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
--- NOTE | 2025-03-05 15:09 | CM ---
CM following re: discharge planning.
Reviewed pt's chart, met with pt.
Pt is a 59 year old male, admitted with primary dx of LINDY - Acute urinary retention. Nephrology following.
Pt reports he lives with mother and a son in an apartment, went to [facility] and was released a week ago and went to [facility] where he was just a few days. Pt reports he is w/c bound, known to [facility]. Pt expressed his desire
to return back to [facility] to continue on skilled services.
PT and OT will evaluate the pt to determine a level of care at discharge.
CM will follow with discharge plan updates as hospitalization progresses
[2025-03-05 15:57] VITALS: BP 123/69
[2025-03-05 16:58] LABS: Glucose - Point of Care 67 mg/dl (70-99)
[2025-03-05 21:43] LABS: Glucose - Point of Care 80 mg/dl (70-99)
[2025-03-05 21:43] LABS: Glucose - Point of Care 92 mg/dl (70-99)
[2025-03-05 22:00] VITALS: BMI 28.8
[2025-03-05] MEDS: FEOSOL 325 MG PO (23:06)
[2025-03-05 23:43] VITALS: BP 133/72
[2025-03-06 05:51] LABS: Blood Urea Nitrogen 25 mg/dl (9-20); Calcium 9.0 mg/dl (8.4-10.2); Carbon Dioxide 20 mmol/L (22-30); Chloride 113 mmol/L (98-107); Estimated Creatinine Clearance 50 ml/min; Glucose 70 mg/dl (70-99); Potassium 3.3 mmol/L (3.5-5.1); Sodium 141 mmol/L (135-145); eGFR 46.15
--- NOTE | 2025-03-06 07:48 | PHA.VAN.FU ---
Vancomycin Assessment / Plan
- Assessment
Renal Function: SCR Decreasing
WBC's are: WNL
In the past 24 hrs, patient has been: Afebrile
Concomitant Antimicrobials: ERTAPENEM
- Assessment - Therapeutic Drug Monitoring
Random Level: 16.2 DRAWN ~80 HRS AFTER PREVIOUS VANCO 750MG
- Dosing Plan
Dosing by Level: Re-dose today (VANCO 750MG X1)
- Monitoring Plan
Random Level: 03/07 @0600
- Follow Up
Pharmacy will continue to follow.
Vancomycin Follow UP
- -
Patient Age: 59
Patient Sex: Male
Vancomycin Day #: 22 (initiated during prior admission on 02/13)
Indication: Bone And Joint
Requesting Provider: Dr. Quevedo,Dr. Comer
Pertinent Antimicrobial Allergies:
NKDA
Height / Weight:
Height 5 ft 11 in
Actual Weight 93.61 kg
- Vital Signs / Lab Results
Temp Pulse Resp BP Pulse Ox
98.6 F 82 18 133/72 99
03/05/25 23:43 03/05/25 23:43 03/05/25 23:43 03/05/25 23:43 03/06/25 00:16
Lab Results - Hematology
03/03/25 03/04/25 03/05/25
17:59 04:37 04:26
WBC 11.8 H 9.6 9.1
Lab Results - Chemistry
03/03/25 03/04/25 03/05/25
17:59 04:37 04:26
BUN 38 H 37 H 30 H
Creatinine 3.1 H 2.9 H 2.2 H
Estimated Creat Clear 29 30 39
Albumin 3.4 L
03/06/25
05:12
BUN 25 H
Creatinine 1.7 H
Estimated Creat Clear 50
Albumin
Microbiology Results
03/04/25 12:15 MRSA Screen - Final
Nose No Methicillin Resistant Staphylococcus aureus isolated.
03/03/25 19:04 Urine Culture - Final
Urine NO GROWTH
Therapeutic Drug Monitoring
Random Vancomycin 16.2 ug/ml 03/06/25 05:12
[2025-03-06 07:55] VITALS: BP 129/73
[2025-03-06 07:55] LABS: Glucose - Point of Care 73 mg/dl (70-99)
[2025-03-06] MEDS: VANCOCIN 150 IV (08:59)
[2025-03-06] MEDS: SANTYL OINTMENT 1 APPLIC TOPICAL (09:05)
[2025-03-06] MEDS: CATAPRES 0.1 MG PO (09:07)
[2025-03-06] MEDS: NEURONTIN 300 MG PO ×3 (09:07→21:15)
[2025-03-06] MEDS: EFFIENT 10 MG PO (09:07)
[2025-03-06] MEDS: CRESTOR 20 MG PO (09:08)
[2025-03-06] MEDS: NORVASC 10 MG PO (09:08)
[2025-03-06] MEDS: DIFLUCAN 200 MG PO (09:08)
[2025-03-06] MEDS: APRESOLINE 50 MG PO ×3 (09:08→21:15)
[2025-03-06] MEDS: LOW STRENGTH ASPIRIN 81 MG PO (09:08)
[2025-03-06] MEDS: ALPHAGAN 0.2% EYE DROPS 1 DROP LEFT EYE ×2 (09:09→21:14)
[2025-03-06] MEDS: ATROPINE SULFATE 1% DROPS 1 DROP LEFT EYE ×2 (09:10→21:14)
[2025-03-06] MEDS: TIMOPTIC 0.5% OPHTHALMIC SOLUTION 1 DROP OPHTH ×2 (09:11→21:15)
[2025-03-06] MEDS: HEPARIN 5000 UNITS SC ×3 (09:11→23:40)
[2025-03-06] MEDS: PRED FORTE 1% EYE DROPS 1 DROP LEFT EYE ×4 (09:11→21:14)
[2025-03-06] MEDS: TRUSOPT 2% OPHTHALMIC SOLUTION 1 DROP OPHTH ×2 (09:12→21:14)
--- NOTE | 2025-03-06 09:51 | W.PN.NEPH.PH ---
Today's Communication / Plan
-
No more IV fluids
Maintain Correa catheter
LINDY continues to improve follow-up BMP in a.m.
Assessment/Plan
-
Impression.
Acute kidney injury creatinine 3.1
PAD/osteo status post BKA, recent right TMA
multibacterial wound culture (B fragilis bld, staph stimulans & deni lusitaniae wnd)
Diabetes. Uncontrolled hemoglobin A1c is as high as 10.4> diabetic for 18 years with diabetic retinopathy
Hypertension now with hypotension
Mild hyponatremia 133
CKD: Baseline creatinine 1.1
Plan.
- Patient now with noted urinary retention and Correa catheter placement last evening, greater than 1 L noted after catheter insertion
-creatinine down to 1.7
-Holding BERE inhibitor and metformin in setting of acute kidney injury (bp stable)
- DC further IV fluids after current bag expires early this afternoon
-Kidney and bladder ultrasound : Unremarkable
- Antibiotics to be renally dosed if creatinine does not continue to improved with Correa catheter placement we will check urine eosinophils to assess for possible drug-induced interstitial nephritis
-Maintain current oral antihypertensives otherwise for hypertension control
-
-
Date of Service: March 06, 2025
CC / HPI / ROS
-
Chief Complaint:
LINDY
History of Present Illness:
creatinine improving to 1.7
hemodynamically stable
Review of Systems:
non oligurc
correa
More awake and interactive
No reported chest pain or shortness of
Labs
-
Labs:
WBC 9.1 10^3/uL (4.8-10.8) 03/05/25 04:26
RBC 2.96 10^6/uL (4.70-6.10) L 03/05/25 04:26
Hgb 8.8 g/dL (13.0-18.0) L 03/05/25 04:26
Hct 26.6 % (39.0-52.0) L 03/05/25 04:26
Plt Count 425 10^3/uL (130-400) H 03/05/25 04:26
Sodium 141 mmol/L (135-145) 03/06/25 05:12
Potassium 3.3 mmol/L (3.5-5.1) L 03/06/25 05:12
Chloride 113 mmol/L (98-107) H 03/06/25 05:12
Carbon Dioxide 20 mmol/L (22-30) L 03/06/25 05:12
BUN 25 mg/dl (9-20) H 03/06/25 05:12
Creatinine 1.7 mg/dL (0.7-1.3) H 03/06/25 05:12
eGFR 46.15 03/06/25 05:12
Glucose 70 mg/dl (70-99) 03/06/25 05:12
Calcium 9.0 mg/dl (8.4-10.2) 03/06/25 05:12
Albumin 3.4 g/dl (3.5-5.0) L 03/03/25 17:59
Physical Exam
-
Vital Signs:
Vital Signs
Temp Pulse Resp BP Pulse Ox
98.7 F 91 16 129/73 98
03/06/25 07:55 03/06/25 09:08 03/06/25 07:55 03/06/25 09:08 03/06/25 07:55
Cardiovascular:: Regular rate and rhythm
Respiratory:: Bilateral: CTA
Lung Excursion:: Normal
Abdomen:: Nontender and Soft
Extremity Edema:: +1: Right:
Correa Catheter: Yes
Other Findings::
left BKA stump
[2025-03-06] MEDS: KCL 40 MEQ PO (10:27)
[2025-03-06] MEDS: INVANZ 60 MG IV (10:27)
--- NOTE | 2025-03-06 10:53 | W.PN.HOSP.TC ---
Today's Communication/Plan
-
Stop IV fluids
BMP in the morning
Wound care
Continue antibiotics and antifungal
Assessment / Plan
Assessment / Plan
59-year-old male presented with lethargy. Patient had left AKA in June and right TMA in December-12/16/2024. He was admitted for osteomyelitis and treated with IV antibiotics. He started noticing increased pain in February. He was admitted and
blood cultures were positive for bacteroids fragilis and wound culture showed staph and Pavithra. He opted for a Limflow salvage procedure instead of BKA. This got good results with excellent Doppler signals. He was started on prasugrel. Patient
was discharged on vancomycin, Invanz and fluconazole.
Chest x-ray-no acute disease
USS-Unremarkable sonographic appearance of the kidneys.The urinary bladder is decompressed with Bustamante catheter.
Patient is awake and alert
States he feels all right
Cardiovascular system S1-S2 appreciated
Chest clear to auscultation
Abdomen soft and nontender
Right TMA site with dark discoloration dry gangrene?
Left BKA site small ulcer noted with dressing
Previous hospitalization reviewed, previous procedure notes reviewed
# Acute kidney injury with a creatinine of 3.1 and mild metabolic acidosis
CKD stage II
Bladder scan more than 1 L retention-Bustamante catheter placed
Creatinine trending down
Continue to Hold acetazolamide, Lisinopril Hydrochlorothiazide, Metformin
Renally dose vancomycin and follow BMP
Stop IVF
Ultrasound of the kidneys without any obstruction
Patient told infectious disease that he was trying to hold his urine because he could not lower his pants to urinate himself while at the rehab.
# Hypokalemia-better
# Osteomyelitis
Earlier this month blood cultures showed bacteroids and wound cultures with MRSA and Pavithra Lusitaniae
On ertapenem, vancomycin and fluconazole
Podiatry consulted
ID milan appreciated.
# Peripheral artery disease
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 Balloon angioplasty of the deep veins including pedal venous system
by Dr. De La Garza on 02/17/2025
Podiatry evaluation appreciated. As per discussion with vascular wait for 2 to 3 weeks for debridement of the wound is not infected since the limb flow was done 2 weeks ago. No debridement or resection recommended for 6 weeks.
Continue wound care
Patient is at high risk for limb loss on the right
# Poorly controlled diabetes with diabetic retinopathy-hemoglobin A1c 5.7 on 02/14/2025-not reliable
Accu-Cheks and sliding scale coverage
Hold Ozempic, metformin, dapagliflozin
Continue gabapentin for neuropathy
# Hypertension-continue amlodipine, clonidine, hydralazine. Holding lisinopril hydrochlorothiazide
# Anemia -acute on chronic-status post 1 unit of packed red blood cell this admission. Heme test stools pending, Iron studies adequate.
# Mild thrombocytosis-likely secondary to chronic [id number]
# Hyperlipidemia-continue statin
# Obesity with a BMI of 29
# DVT prophylaxis-subcutaneous heparin
# Full code
D/W ID
D/W Podiatry- Today -unless the foot is acutely infected or purulent or patient is septic the plan is to continue with antibiotics and await for 2 to 3 weeks because of the limflow procedure that the patient had. Ideally this should be scheduled
prior to patient completing antibiotics.
Discussed with pharmacy
High risk situation in terms of his right leg. High risk for limb loss.. Continue antibiotics and watch.
Watch blood sugars closely
Updated patient's son in detail regarding acute kidney injury, anemia, regarding his foot. He understands that his father will need procedure for debridement in future but at this point holding off further limflow procedure to work. But he
understands that if there is acute infection or sepsis that he may need the procedure sooner. Also discussed that it is not on percent guarantee that this will all work to save his foot. Son understands this.
Part of this note was created using voice recognition system. Occasional wrong word or��sound alike� substitutions may have inadvertently occurred due to the inherent limitations of voice recognition software. If noted kindly bring it to my
attention for correction.
Anticipated Discharge: > 48 hours
Subjective/Interval History
-
Date of Service: March 06, 2025
Objective Data
-
Labs:
Laboratory Results
03/06/25
05:12
Sodium 141
Potassium 3.3 L
Chloride 113 H
Carbon Dioxide 20 L
BUN 25 H
Creatinine 1.7 H
Glucose 70
Calcium 9.0
Vital Signs:
Vital Signs
Temp Pulse Resp BP Pulse Ox
98.7 F 91 16 129/73 98
03/06/25 07:55 03/06/25 09:08 03/06/25 07:55 03/06/25 09:08 03/06/25 07:55
I&O
03/05/25 03/06/25 03/07/25
06:59 06:59 06:59
Intake Total 1567 / 1567 780 / 780
Output Total 3645 / 3645 4955 / 4955
Balance -2078 / -2078 -4175 / -4175
[2025-03-06 12:40] LABS: Glucose - Point of Care 97 mg/dl (70-99)
--- NOTE | 2025-03-06 12:45 | W.PN.ID1 ---
Date of Service
Date of Service: March 06, 2025
Today's Communication
Continue abx's.
Assessment / Plan
# LINDY improving
# Acute urinary retention, correa placed in ED
# Osteomyelitis right 1st-5th metatarsal shafts at [facility] site, currently on 6 weeks of Ertapenem, Vanco, fluconazole
# Recent bacteroides bacteremia, foot source
# Uncontrolled DM
# PAD s/p multiple vascular procedures; LimFlow procedure 02/17/25.
- Continue Vancomycin. Appreciate pharmacists' help with dosing, obtaining levels.
- Continue Ertapenem 1g IV q24
- Continue fluconazole 200mg qd, renally adjusted for CrCl<50. QTc 450.
When CrCl >50, can resume fluconazole 400mg qd dose.
- Podiatry plans for elective I+D in 2-3 weeks.
Chief Complaint
-: Other (osteo)
Subjective / Review of Systems
No new complaints.
Vital Signs / Physical Exam
Vital Signs
Vital Signs
Temp Pulse Resp BP Pulse Ox
98.7 F 91 16 129/73 98
03/06/25 07:55 03/06/25 09:08 03/06/25 07:55 03/06/25 09:08 03/06/25 07:55
Physical Exam
Constitutional: No Acute Distress and Comfortable
Eyes: No Conjunctival Hemorrhage and Sclera Anicteric
Cardiovascular: Regular Rate and S1/S2
Pulmonary: Clear
Gastrointestinal: Soft, Non Tender and Non Distended
Extremities: Negative Edema
Wound: Other (Right foot dressing dry)
Neurological: AO x 3
Lines: PICC (RUE no erythema)
Objective Data
Lab Data
Lab Results
03/05/25 04:26
03/06/25 05:12
Estimated Creat Clear 50 ml/min 03/06/25 05:12
Total Bilirubin 0.3 mg/dl (0.2-1.3) 03/03/25 17:59
AST 20 U/L (17-59) 03/03/25 17:59
ALT 15 U/L (0-50) 03/03/25 17:59
Alkaline Phosphatase 142 U/L (38-126) H 03/03/25 17:59
Most recent labs reviewed.
Micro Results:
03/04/25 12:15 MRSA Screen - Final
Nose No Methicillin Resistant Staphylococcus aureus isolated.
03/03/25 19:04 Urine Culture - Final
Urine NO GROWTH
03/03/25 CXR: No acute disease of the chest.
Care Review
Plan reviewed with: Physician (Dr. Martinez)
[2025-03-06 15:02] VITALS: BP 137/79
[2025-03-06 18:32] LABS: Glucose - Point of Care 88 mg/dl (70-99)
[2025-03-06 21:53] LABS: Glucose - Point of Care 76 mg/dl (70-99)
[2025-03-06 23:18] VITALS: BP 128/69
[2025-03-07 04:43] LABS: Hematocrit 27.2 % (39.0-52.0); Hemoglobin 9.1 g/dL (13.0-18.0); Mean Corp Hgb Conc. 33.5 g/dL (33.0-37.0); Mean Corpuscular Volume 87.2 fL (80.0-94.0); Platelet Count 431 10^3/uL (130-400); Red Cell Dist. Width 16.2 % (11.5-14.5)
[2025-03-07 05:03] LABS: Blood Urea Nitrogen 21 mg/dl (9-20); Calcium 9.3 mg/dl (8.4-10.2); Carbon Dioxide 19 mmol/L (22-30); Chloride 111 mmol/L (98-107); Estimated Creatinine Clearance 61 ml/min; Glucose 68 mg/dl (70-99); Magnesium 1.6 mg/dl (1.6-2.3); Potassium 3.2 mmol/L (3.5-5.1); Sodium 137 mmol/L (135-145); eGFR 58.26
[2025-03-07 05:19] VITALS: BMI 28.4
[2025-03-07 05:30] VITALS: BMI 28.4
[2025-03-07 07:35] VITALS: BP 121/73
[2025-03-07] MEDS: CRESTOR 20 MG PO (08:57)
[2025-03-07] MEDS: NEURONTIN 300 MG PO ×3 (08:57→21:18)
[2025-03-07] MEDS: APRESOLINE 50 MG PO ×3 (08:57→21:15)
[2025-03-07] MEDS: LOW STRENGTH ASPIRIN 81 MG PO (08:57)
[2025-03-07] MEDS: SANTYL OINTMENT 1 APPLIC TOPICAL (08:57)
[2025-03-07] MEDS: DIFLUCAN 200 MG PO ×2 (08:57→10:55)
[2025-03-07] MEDS: PRED FORTE 1% EYE DROPS 1 DROP LEFT EYE ×4 (08:58→21:19)
[2025-03-07] MEDS: TIMOPTIC 0.5% OPHTHALMIC SOLUTION 1 DROP OPHTH ×2 (08:58→20:27)
[2025-03-07] MEDS: CATAPRES 0.1 MG PO (08:58)
[2025-03-07] MEDS: HEPARIN 5000 UNITS SC ×3 (08:58→23:32)
[2025-03-07] MEDS: ATROPINE SULFATE 1% DROPS 1 DROP LEFT EYE ×2 (08:58→20:26)
[2025-03-07] MEDS: INVANZ 60 MG IV (08:58)
[2025-03-07] MEDS: ALPHAGAN 0.2% EYE DROPS 1 DROP LEFT EYE ×2 (08:58→20:27)
[2025-03-07] MEDS: NORVASC 10 MG PO (08:58)
[2025-03-07] MEDS: EFFIENT 10 MG PO (08:59)
[2025-03-07] MEDS: TRUSOPT 2% OPHTHALMIC SOLUTION 1 DROP OPHTH ×2 (08:59→20:28)
--- NOTE | 2025-03-07 09:01 | PHA.VAN.FU ---
Vancomycin Assessment / Plan
- Assessment
Renal Function: Stable
WBC's are: WNL
In the past 24 hrs, patient has been: Afebrile
Concomitant Antimicrobials: ertapenem, fluconazole
- Assessment - Therapeutic Drug Monitoring
Random Level: 16.8 - drawn ~19.5H after previous dose of 750mg
Laboratory Tests
03/03/25 03/04/25 03/05/25 03/06/25
20:10 09:01 04:26 05:12
Random Vancomycin 30.7 26.1 21.1 16.2
half-life (H) 55 63.3 64.9
SCR 3.1 2.9 2.2 1.7
- Dosing Plan
Dosing by Level: Hold off on dosing today
Based on half-life / level trend, anticipate patient currently around a re-dosing interval of every 48H with improving SCR
Will follow levels to continue to trend
At baseline SCR 0.9-1 patient had half-life ~20H during prior dosing experience
- Monitoring Plan
Random Level: 03/08 0600
- Follow Up
Pharmacy will continue to follow.
Vancomycin Follow UP
- -
Patient Age: 59
Patient Sex: Male
Vancomycin Day #: 23 (initiated during prior admission on 02/13)
Indication: [facility]
Requesting Provider: Dr. Quevedo / Dr. Comer
Pertinent Antimicrobial Allergies:
NKDA
Height / Weight:
Height 5 ft 11 in
Actual Weight 92.17 kg
- Vital Signs / Lab Results
Temp Pulse Resp BP Pulse Ox
98.7 F 90 16 121/73 100
03/07/25 07:35 03/07/25 07:35 03/07/25 07:35 03/07/25 07:35 03/07/25 08:53
Lab Results - Hematology
03/05/25 03/07/25
04:26 04:24
WBC 9.1 8.4
Lab Results - Chemistry
03/05/25 03/06/25 03/07/25
04:26 05:12 04:24
BUN 30 H 25 H 21 H
Creatinine 2.2 H 1.7 H 1.4 H
Estimated Creat Clear 39 50 61
Microbiology Results
03/04/25 12:15 MRSA Screen - Final
Nose No Methicillin Resistant Staphylococcus aureus isolated.
Therapeutic Drug Monitoring
Random Vancomycin 16.8 ug/ml 03/07/25 04:24
[2025-03-07 09:32] LABS: Glucose - Point of Care 81 mg/dl (70-99)
--- NOTE | 2025-03-07 10:21 | W.PN.ID1 ---
Date of Service
Date of Service: March 07, 2025
Today's Communication
- would like to follow LINDY for further improvement
- vancomycin and ertapenem will continue through 03/26/25
- fluconazole to continue for 6 months total 02/17-08/17/25
Assessment / Plan
# LINDY improving
# Acute urinary retention, correa placed in ED
# Osteomyelitis right 1st-5th metatarsal shafts at [facility] site, currently on 6 weeks of Ertapenem, Vanco, fluconazole
# Recent bacteroides bacteremia, foot source
# Uncontrolled DM
# PAD s/p multiple vascular procedures; LimFlow procedure 02/17/25.
- would like to follow LINDY for further improvement
- Continue Vancomycin. Appreciate pharmacists' help with dosing, obtaining levels.
- remains on q48 hour dosing
- Continue Ertapenem 1g IV q24
- Continue fluconazole dose adjusted to 400 mg PO qday
- repeat QTc in the AM
- Podiatry plans for elective I+D in 2-3 weeks.
- vancomycin and ertapenem will continue through 03/26/25
- fluconazole to continue for 6 months total 02/17-08/17/25
Chief Complaint
-: Other (osteo)
Subjective / Review of Systems
afebrile
bp stable
no events overnight
no complaints
Vital Signs / Physical Exam
Vital Signs
Vital Signs
Temp Pulse Resp BP Pulse Ox
98.7 F 90 16 121/73 100
03/07/25 07:35 03/07/25 08:57 03/07/25 07:35 03/07/25 08:57 03/07/25 08:53
Physical Exam
Constitutional: No Acute Distress
Cardiovascular: Regular Rate and S1/S2; Negative Murmur or Rub
Pulmonary: Clear and Symmetric; Negative Wheezes or Rales
Gastrointestinal: Soft, Non Tender, Non Distended and Normal Bowel Sounds
Extremities: Other (surgical site with eschar and dehiscence, still probes to bone in two locations, no granulation tissue seen, no odor, no surrounding erythema)
Skin: Warm and Dry; Negative Rash or Jaundice
Lines: PICC (no erythema, warmth or tenderness)
Objective Data
Lab Data
Lab Results
03/07/25 04:24
03/07/25 04:24
Estimated Creat Clear 61 ml/min 03/07/25 04:24
Total Bilirubin 0.3 mg/dl (0.2-1.3) 03/03/25 17:59
AST 20 U/L (17-59) 03/03/25 17:59
ALT 15 U/L (0-50) 03/03/25 17:59
Alkaline Phosphatase 142 U/L (38-126) H 03/03/25 17:59
Most recent labs reviewed.
4:00 AM vancomycin level 16.8
Micro Results:
03/04/25 12:15 MRSA Screen - Final
Nose No Methicillin Resistant Staphylococcus aureus isolated.
03/03/25 19:04 Urine Culture - Final
Urine NO GROWTH
03/03/25 CXR: No acute disease of the chest.
--- NOTE | 2025-03-07 10:24 | W.PN.HOSP.TC ---
Addendum entered and electronically signed by Graciela Bocanegra MD 03/07/25 14:38:
Attending�addendum:
I saw and evaluated the patient independently. I reviewed and discussed the resident�s note and agree with findings and plan as documented in the resident�s note.� patient seen and examined at bedside, denies any chest pain or shortness of breath,
no abdominal pain, no nausea, no vomiting, no diarrhea or constipation.
Physical�exam:
GENERAL : Patient is awake, alert, oriented x3
HEENT: Nonicteric sclerae, PERRLA, EOMI. Oropharynx clear. Moist mucous membranes. Conjunctivae appear well perfused.
CHEST: Chest wall is nontender.
HEART: Regular rate and rhythm without murmurs.
LUNGS: Clear to auscultation bilaterally.
ABDOMEN: Soft, positive bowel sounds, nontender, no organomegaly.
RECTAL: Deferred.
MUSCLES/EXTREMITIES: Right foot dressing, left BKA
NEUROLOGIC: Cranial nerves II-XII intact without motor/sensory deficit.
�
Assessment/plan:
Acute renal failure.
Improving
Appreciate nephrology input
Hypokalemia.
Replace and keep monitor
Osteomyelitis.
Continue to biotics.
Appreciate ID input
Urinary retention.
Status post Bustamante.
Voiding trials
CODE STATUS: Full code
Diet: DM diet
Disposition: Discharge after voiding trials
�
Total time spent on today�s encounter was 51 minutes which included time spent in counseling the patient/family regarding diagnosis and treatment plan as listed above, goals of care, and symptom management. Case was discussed with nursing staff,
specialists, and care coordinators/case management. All labs and imaging personally reviewed by me. Remainder the time spent in detailed review of previous records, lab data, imaging, and other medical provider documentation.
Original Note:
Today's Communication/Plan
-
- Creatinine improving, 1.4 today
- Voiding trial with possible d/c Bustamante catheter
- Repleted potassium
- Continue holding lisinopril, hydrochlorothiazide until patient finishes vancomycin
Assessment / Plan
Assessment / Plan
# Acute kidney injury Cr of 3.1
- Bladder scan more than 1 L retention-Bustamante catheter placed
- Creatinine trending down 1.4
- Continue to Hold acetazolamide, Lisinopril Hydrochlorothiazide, Metformin
- Renally dose vancomycin and follow BMP
- Ultrasound of the kidneys without any obstruction
- Patient told infectious disease that he was trying to hold his urine because he could not lower his pants to urinate himself while at the rehab.
# Hypokalemia
- 3.2 today, will replete K
# Osteomyelitis
- h/o blood cultures showing bacteroids and wound cultures with MRSA and Pavithra Lusitaniae
- On ertapenem, vancomycin and fluconazole
- Podiatry consulted
- ID consulted for antibiotic dosing outpatient
# Peripheral artery disease
- Status post left BKA (June 2024) and right TMA December 2024
- LimFlow by Dr. De La Garza on 02/17/2025
- Continue wound care
- Will need procedure for debridement in future but at this point holding off further limflow procedure to work
# Poorly controlled diabetes with diabetic retinopathy
- hemoglobin A1c 5.7 on 02/14/2025
- Accu-Cheks and sliding scale coverage
- Hold Ozempic, metformin, dapagliflozin
# Hypertension
- Continue amlodipine, clonidine, hydralazine.
- Currently holding lisinopril and hydrochlorothiazide
- Patient normotensive here
- Would recommend patient to hold lisinopril and hydrochlorothiazide until patient finishes course of vancomycin.
- Would recommend follow-up with nephrology outpatient for hypertension regimen management
# Anemia
- acute on chronic
- s/p 1 unit of PRBC this admission.
- Heme test stools pending
# Hyperlipidemia
- continue statin
DVT prophylaxis-subcutaneous heparin
Full code
Anticipated Discharge: 24 - 48 hours
Subjective/Interval History
-
Date of Service: March 07, 2025
Patient seen today at bedside. Patient states that he may feel like he has a little more energy than last week, but he is not sure. Patient denies any chest pain, shortness of breath, headache, nausea vomiting, urinary symptoms. Patient still has
a Bustamante in place. Patient denies fever, chills.
Objective Data
-
Labs:
Laboratory Results
03/07/25
04:24
WBC 8.4
Hgb 9.1 L
Hct 27.2 L
Plt Count 431 H
Sodium 137
Potassium 3.2 L
Chloride 111 H
Carbon Dioxide 19 L
BUN 21 H
Creatinine 1.4 H
Glucose 68 L
Calcium 9.3
Vital Signs:
Vital Signs
Temp Pulse Resp BP Pulse Ox
98.7 F 90 16 121/73 100
03/07/25 07:35 03/07/25 08:57 03/07/25 07:35 03/07/25 08:57 03/07/25 08:53
I&O
03/06/25 03/07/25 03/08/25
06:59 06:59 06:59
Intake Total 780 / 780 2340 / 2340
Output Total 4955 / 4955 2950 / 2950
Balance -4175 / -4175 -610 / -610
Review of Systems
-
History Source: Patient
Constitutional: Reports No Symptoms
EENT: Reports No Symptoms Reported
Respiratory: Reports No Symptoms
Cardiac: Reports No Symptoms
Abdomen/GI: Reports No Symptoms
Genitourinary: Reports No Symptoms
Musculoskeletal: Reports No Symptoms
Skin: Reports No Symptoms
Neuro: Reports No Symptoms
Endocrine: Reports No Symptoms
Hematologic / Lymphatic: Reports No Symptoms
Allergy / Immunology: Reports No Symptoms
Physical Exam
-
General: No Apparent Distress
HEENT: Normocephalic
Respiratory: Clear to Auscultation
Cardiac: Regular Rhythm
GI: Soft, Nontender and Nondistended
Skin: Warm and Dry
Neuro: Awake, Alert and Oriented
Psych: Calm
--- NOTE | 2025-03-07 12:31 | W.PN.NEPH.PH ---
Today's Communication / Plan
-
K
Assessment/Plan
-
Impression.
Acute kidney injury creatinine 3.1
PAD/osteo status post BKA, recent right TMA
multibacterial wound culture (B fragilis bld, staph stimulans & deni lusitaniae wnd)
Diabetes. Uncontrolled hemoglobin A1c is as high as 10.4> diabetic for 18 years with diabetic retinopathy
Hypertension now with hypotension
Mild hyponatremia 133
CKD: Baseline creatinine 1.1
Plan.
replete K
flomax
eventual voiding trial
follow BMP
-
-
Date of Service: March 07, 2025
CC / HPI / ROS
-
Chief Complaint:
LINDY
History of Present Illness:
creatinine improving to 1.4
hemodynamically stable
correa in place for obstructive uropathy
K low 3.2
Review of Systems:
non oliguric
correa
no CP
Labs
-
Labs:
WBC 8.4 10^3/uL (4.8-10.8) 03/07/25 04:24
RBC 3.12 10^6/uL (4.70-6.10) L 03/07/25 04:24
Hgb 9.1 g/dL (13.0-18.0) L 03/07/25 04:24
Hct 27.2 % (39.0-52.0) L 03/07/25 04:24
Plt Count 431 10^3/uL (130-400) H 03/07/25 04:24
Sodium 137 mmol/L (135-145) 03/07/25 04:24
Potassium 3.2 mmol/L (3.5-5.1) L 03/07/25 04:24
Chloride 111 mmol/L (98-107) H 03/07/25 04:24
Carbon Dioxide 19 mmol/L (22-30) L 03/07/25 04:24
BUN 21 mg/dl (9-20) H 03/07/25 04:24
Creatinine 1.4 mg/dL (0.7-1.3) H 03/07/25 04:24
eGFR 58.26 03/07/25 04:24
Glucose 68 mg/dl (70-99) L 03/07/25 04:24
Calcium 9.3 mg/dl (8.4-10.2) 03/07/25 04:24
Albumin 3.4 g/dl (3.5-5.0) L 03/03/25 17:59
Physical Exam
-
Vital Signs:
Vital Signs
Temp Pulse Resp BP Pulse Ox
98.7 F 90 16 121/73 100
03/07/25 07:35 03/07/25 08:57 03/07/25 07:35 03/07/25 08:57 03/07/25 08:53
Cardiovascular:: Regular rate and rhythm
Respiratory:: Bilateral: CTA
Lung Excursion:: Normal
Abdomen:: Nontender and Soft
Bowel Sounds:: Normal
Extremity Edema:: None: Bilateral:
[2025-03-07 12:40] LABS: Glucose - Point of Care 82 mg/dl (70-99)
[2025-03-07] MEDS: FLOMAX 0.4 MG PO (13:24)
[2025-03-07] MEDS: KCL 40 MEQ PO (13:24)
--- NOTE | 2025-03-07 14:26 | PTCARENOTE ---
Bustamante catheter removed per MD order, pt due to void by 2022 this evening. Pt made aware, oncoming RN to be made aware of need for bladder scan at that time if no void. No new orders at this time.
[2025-03-07 14:52] VITALS: BP 131/77; PULSE 82; O2SAT 100
--- NOTE | 2025-03-07 15:24 | CM ---
CM reviewed chart, ADC 1-2 days
Return SNF referral sent to [facility]
Requested NPIs for auth via [facility]- awaiting response
Pt will require auth for continued STR at SNF
Pt will need vanco and ertapenem through 03/26 and fluconazole through 08/17/25
Discharge Dispositio- return to [facility] for STR
[2025-03-07 15:30] VITALS: BP 115/69
[2025-03-07 17:52] LABS: Glucose - Point of Care 76 mg/dl (70-99)
[2025-03-07] MEDS: FEOSOL 325 MG PO (21:18)
[2025-03-07 21:22] LABS: Glucose - Point of Care 68 mg/dl (70-99)
[2025-03-07 21:46] LABS: Glucose - Point of Care 81 mg/dl (70-99)
[2025-03-07 23:35] LABS: Glucose - Point of Care 96 mg/dl (70-99)
[2025-03-07 23:55] VITALS: BP 134/75
[2025-03-08 01:34] LABS: Glucose - Point of Care 82 mg/dl (70-99)
[2025-03-08 03:06] LABS: Glucose - Point of Care 85 mg/dl (70-99)
[2025-03-08 06:00] VITALS: BMI 28.0
[2025-03-08 06:44] LABS: Hematocrit 27.4 % (39.0-52.0); Hemoglobin 9.3 g/dL (13.0-18.0); Mean Corp Hgb Conc. 33.9 g/dL (33.0-37.0); Mean Corpuscular Volume 88.7 fL (80.0-94.0); Platelet Count 431 10^3/uL (130-400); Red Cell Dist. Width 16.0 % (11.5-14.5)
--- NOTE | 2025-03-08 07:03 | W.PN.HOSP.TC ---
Addendum entered and electronically signed by Graciela Bocanegra MD 03/08/25 12:50:
Attending�addendum:
I saw and evaluated the patient independently. I reviewed and discussed the resident�s note and agree with findings and plan as documented in the resident�s note.� patient seen and examined at bedside, denies any chest pain or shortness of breath,
no abdominal pain, no nausea, no vomiting, no diarrhea or constipation.
Bustamante removed with patient failed voiding trial, Bustamante replaced.
Physical�exam:
GENERAL : Patient is awake, alert, oriented x3
HEENT: Nonicteric sclerae, PERRLA, EOMI. Oropharynx clear. Moist mucous membranes. Conjunctivae appear well perfused.
CHEST: Chest wall is nontender.
HEART: Regular rate and rhythm without murmurs.
LUNGS: Clear to auscultation bilaterally.
ABDOMEN: Soft, positive bowel sounds, nontender, no organomegaly.
RECTAL: Deferred.
MUSCLES/EXTREMITIES: Right foot dressing, left BKA
NEUROLOGIC: Cranial nerves II-XII intact without motor/sensory deficit.
�
Assessment/plan:
Acute renal failure.
Improving
Appreciate nephrology input
Hypokalemia.
Replace and keep monitor
Osteomyelitis.
Continue to biotics.
Appreciate ID input
Urinary retention.
Butsamante removed with patient failed voiding trial, Bustamante replaced.
Discussed with urology, will need to follow-up with urology as OP
- Unstageable right heel pressure injury, POA
- Stage 2 sacrum pressure injury, POA
- Stage 2 b/l buttocks pressure injury, POA
CODE STATUS: Full code
Diet: DM diet
Disposition: Medically clear for discharge to rehab.
�
Total time spent on today�s encounter was 51 minutes which included time spent in counseling the patient/family regarding diagnosis and treatment plan as listed above, goals of care, and symptom management. Case was discussed with nursing staff,
specialists, and care coordinators/case management. All labs and imaging personally reviewed by me. Remainder the time spent in detailed review of previous records, lab data, imaging, and other medical provider documentation.
Original Note:
Today's Communication/Plan
-
- Discharge to SNF pending
- Keep Bustamante catheter in place. Urology notified, patient will need follow-up within 1 week
Assessment / Plan
Assessment / Plan
# Acute kidney injury Cr of 3.1
- Bladder scan more than 1 L retention-Bustamante catheter placed in ED
- Creatinine trending down 1.3 today � baseline creatinine 1.1
- Continue to Hold acetazolamide, Lisinopril Hydrochlorothiazide, Metformin
- Renally dose vancomycin and follow BMP
- Ultrasound of the kidneys without any obstruction
- Failed void trial overnight. Bustamante catheter replaced today.
- Patient will be discharged with Bustamante catheter and needing follow-up with urology in 1 week
# Hypokalemia
- 3.4 today, will replete K
- Repeat magnesium 1.7 today
# Osteomyelitis
- h/o blood cultures showing bacteroids and wound cultures with MRSA and Pavithra Lusitaniae
- On ertapenem, vancomycin and fluconazole
- Podiatry with planned follow-up in 2 to 3 weeks
- ID consulted and recommend the following :
- vancomycin and ertapenem will continue through 03/26/25
- fluconazole to continue for 6 months total 02/17-08/17/25
# Peripheral artery disease
- Status post left BKA (June 2024) and right TMA December 2024
- LimFlow by Dr. De La Garza on 02/17/2025
- Continue wound care
- Will need procedure for debridement in future but at this point holding off further limflow procedure to work
# Poorly controlled diabetes with diabetic retinopathy
- hemoglobin A1c 5.7 on 02/14/2025
- Accu-Cheks and sliding scale coverage
- Holding Ozempic, metformin, dapagliflozin
# Hypertension
- Continue amlodipine, clonidine, hydralazine.
- Currently holding lisinopril and hydrochlorothiazide
- Patient normotensive here
- Would recommend patient to hold lisinopril and hydrochlorothiazide until patient finishes course of vancomycin.
- Would recommend follow-up with nephrology outpatient for hypertension regimen management
# Anemia
- acute on chronic
- s/p 1 unit of PRBC this admission.
- Heme test stools pending
# Hyperlipidemia
- continue statin
#Unstageable right heel pressure injury, POA
#Stage 2 sacrum pressure injury, POA
#Stage 2 b/l buttocks pressure injury, POA
- Appreciate wound care recs
DVT prophylaxis-subcutaneous heparin
Full code
Anticipated Discharge: Today
Subjective/Interval History
-
Date of Service: March 08, 2025
Patient seen today at the bedside. Patient is disappointed that he was unable to urinate on his own without the Bustamante. Patient currently denying any pain, shortness of breath, chest pain, nausea, vomiting, abdominal pain.
Objective Data
-
Labs:
Laboratory Results
03/08/25
06:25
WBC 7.6
Hgb 9.3 L
Hct 27.4 L
Plt Count 431 H
Sodium Pending
Potassium Pending
Chloride Pending
Carbon Dioxide Pending
BUN Pending
Creatinine Pending
Glucose Pending
Calcium Pending
Vital Signs:
Vital Signs
Temp Pulse Resp BP Pulse Ox
99.1 F 85 14 134/75 99
03/07/25 23:55 03/07/25 23:55 03/07/25 23:55 03/07/25 23:55 03/07/25 23:55
I&O
03/07/25 03/08/25 03/09/25
06:59 06:59 06:59
Intake Total 2340 / 2340 2440 / 2440
Output Total 2950 / 2950 2109 / 2109
Balance -610 / -610 330 / 330
Review of Systems
-
History Source: Patient
Constitutional: Reports No Symptoms
EENT: Reports No Symptoms Reported
Respiratory: Reports No Symptoms
Cardiac: Reports No Symptoms
Abdomen/GI: Reports No Symptoms
Breast: Reports No Symptoms
Genitourinary: Reports Difficulty Voiding
Musculoskeletal: Reports No Symptoms
Skin: Reports No Symptoms
Neuro: Reports No Symptoms
Endocrine: Reports No Symptoms
Hematologic / Lymphatic: Reports No Symptoms
Allergy / Immunology: Reports No Symptoms
Psych: Reports Sad
Physical Exam
-
General: No Apparent Distress
HEENT: Normocephalic, Atraumatic and Moist Mucous Membranes
Respiratory: Clear to Auscultation
Cardiac: Regular Rhythm
GI: Soft, Nontender and Nondistended
Musculoskeletal: No Edema
Skin: Warm and Dry
Neuro: Awake, Alert and Oriented
Psych: Calm
[2025-03-08 07:05] LABS: Blood Urea Nitrogen 20 mg/dl (9-20); Calcium 9.2 mg/dl (8.4-10.2); Carbon Dioxide 21 mmol/L (22-30); Chloride 109 mmol/L (98-107); Estimated Creatinine Clearance 66 ml/min; Glucose 77 mg/dl (70-99); Potassium 3.4 mmol/L (3.5-5.1); Sodium 137 mmol/L (135-145); eGFR > 60.00
[2025-03-08 07:20] VITALS: BP 123/78
--- NOTE | 2025-03-08 07:34 | PN.CDI ---
CDI
- -
CDI:
Physician Documentation Request
Admit Date: 03/03/25 20:31
Dear Doctor,
Please review the following and provide your response in the progress notes.
Clinical Indicators:
- RN skin assessments indicate
- Unstageable right heel pressure injury, POA
- Stage 2 sacrum pressure injury, POA
- Stage 2 b/l buttocks pressure injury, POA
Physician documentation of the type and location of wounds is required for compliant documentation. Based on the above clinical findings and your assessment, please provide the following in your progress note:
1. Location of the ulcer/wound, including laterality.
2. Type (etiology) of ulcer/wound:
- Diabetic ulcer
- Arterial (ischemic) ulcer
- Traumatic wound
- Venous stasis ulcer
- Pressure (decubitus) ulcer
- Non-healing surgical wound
- Other
Use of terms such as suspected, likely, concern for, or probable (associated with a specific diagnosis that is being evaluated, monitored, or treated as if it exists) are acceptable and can be coded in the inpatient setting, when documented at the
time of discharge.
Thank you,
Jessica Mabry RN
CDI Specialist
Please use your independent medical judgment in providing your response.
*Source: National Pressure Ulcer Advisory Panel (NPUAP)
[2025-03-08 08:18] LABS: Glucose - Point of Care 75 mg/dl (70-99)
--- NOTE | 2025-03-08 08:36 | PHA.VAN.FU ---
Vancomycin Assessment / Plan
- Assessment
Renal Function: Stable
WBC's are: WNL
In the past 24 hrs, patient has been: Afebrile
Concomitant Antimicrobials: ertapenem
- Assessment - Therapeutic Drug Monitoring
Random Level: 12.8 - drawn ~26H after previous level of 16.8
03/03/25 03/04/25 03/05/25 03/06/25 03/07/25 03/08/25
20:10 09:01 04:26 05:12 04:24 06:25
Random Vancomycin 30.7 26.1 21.1 16.2 16.8 12.8
half-life (H) 55 63.3 64.9 66.3
SCR 3.1 2.9 2.2 1.7 1.4 1.3
Re-Dosing 750mg
Patient's half-life remains stable in the 60's despite improving SCR.
May require Q72H dosing but vanc clearance could continue to improve with improving LINDY
- Dosing Plan
Dosing by Level: Re-dose today (Vanc 1000mg)
will increase dosing today and follow to see how long pt maintains appr level - currently appears borderline between Q48H vs Q72H
- Monitoring Plan
Random Level: 03/09 0600
Monitoring Comments: will continue to follow daily levels with unstable clearance
- Follow Up
Pharmacy will continue to follow.
Vancomycin Follow UP
- -
Patient Age: 59
Patient Sex: Male
Vancomycin Day #: 24 (initiated during prior admission on 02/13)
Indication: [facility]
Requesting Provider: Dr. Quevedo / Dr. Comer
Pertinent Antimicrobial Allergies:
NKDA
Height / Weight:
Height 5 ft 11 in
Actual Weight 90.9 kg
- Vital Signs / Lab Results
Temp Pulse Resp BP Pulse Ox
99.1 F 85 14 134/75 99
03/07/25 23:55 03/07/25 23:55 03/07/25 23:55 03/07/25 23:55 03/07/25 23:55
Lab Results - Hematology
03/07/25 03/08/25
04:24 06:25
WBC 8.4 7.6
Lab Results - Chemistry
03/06/25 03/07/25 03/08/25
05:12 04:24 06:25
BUN 25 H 21 H 20
Creatinine 1.7 H 1.4 H 1.3
Estimated Creat Clear 50 61 66
Therapeutic Drug Monitoring
Random Vancomycin 12.8 ug/ml 03/08/25 06:25
[2025-03-08 09:08] LABS: Magnesium 1.7 mg/dl (1.6-2.3)
[2025-03-08] MEDS: SANTYL OINTMENT 1 APPLIC TOPICAL (09:19)
[2025-03-08] MEDS: INVANZ 60 MG IV (09:19)
[2025-03-08] MEDS: HEPARIN 5000 UNITS SC ×2 (09:20→16:18)
[2025-03-08] MEDS: LOW STRENGTH ASPIRIN 81 MG PO (09:20)
[2025-03-08] MEDS: KCL 40 MEQ PO (09:20)
[2025-03-08] MEDS: CRESTOR 20 MG PO (09:20)
[2025-03-08] MEDS: APRESOLINE 50 MG PO ×2 (09:21→16:18)
[2025-03-08] MEDS: NORVASC 10 MG PO (09:22)
[2025-03-08] MEDS: DIFLUCAN 400 MG PO (09:22)
[2025-03-08] MEDS: CATAPRES 0.1 MG PO (09:22)
[2025-03-08] MEDS: ATROPINE SULFATE 1% DROPS 1 DROP LEFT EYE (09:23)
[2025-03-08] MEDS: PRED FORTE 1% EYE DROPS 1 DROP LEFT EYE ×2 (09:23→12:46)
[2025-03-08] MEDS: FLOMAX 0.4 MG PO ×2 (09:23→12:45)
[2025-03-08] MEDS: TRUSOPT 2% OPHTHALMIC SOLUTION 1 DROP OPHTH (09:23)
[2025-03-08] MEDS: ALPHAGAN 0.2% EYE DROPS 1 DROP LEFT EYE (09:24)
[2025-03-08] MEDS: TIMOPTIC 0.5% OPHTHALMIC SOLUTION 1 DROP OPHTH (09:24)
[2025-03-08] MEDS: NEURONTIN 300 MG PO ×2 (09:25→16:18)
[2025-03-08] MEDS: EFFIENT 10 MG PO (09:25)
[2025-03-08] MEDS: VANCOCIN 200 IV (10:19)
--- NOTE | 2025-03-08 11:13 | W.PN.ID1 ---
Date of Service
Date of Service: March 08, 2025
Today's Communication
- daptomycin and ertapenem will continue through 03/26/25
- fluconazole to continue for 6 months total 02/17-08/17/25
- updated script sent to community case manager and my office
- follow up in ID clinic in 6-8 weeks
Assessment / Plan
# LINDY improving
# Acute urinary retention, correa placed in ED
# Osteomyelitis right 1st-5th metatarsal shafts at [facility] site, currently on 6 weeks of Ertapenem, Vanco, fluconazole
# Recent bacteroides bacteremia, foot source
# Uncontrolled DM
# PAD s/p multiple vascular procedures; LimFlow procedure 02/17/25.
- switch to daptomycin 900 mg IV q24 hours given LINDY
- Continue Ertapenem 1g IV q24
- Continue fluconazole dose adjusted to 400 mg PO qday
- repeat QTc 416
- Podiatry plans for elective I+D in 2-3 weeks.
- has PICC line
- daptomycin and ertapenem will continue through 03/26/25
- fluconazole to continue for 6 months total 02/17-08/17/25
- updated script sent to community case manager and my office
- follow up in ID clinic in 6-8 weeks
Chief Complaint
-: Other (osteo)
Subjective / Review of Systems
afebrile
bp stable
no events overnight
Vital Signs / Physical Exam
Vital Signs
Vital Signs
Temp Pulse Resp BP Pulse Ox
99.0 F 91 16 123/78 99
03/08/25 07:20 03/08/25 09:21 03/08/25 07:20 03/08/25 09:21 03/08/25 11:03
Physical Exam
Constitutional: No Acute Distress
Cardiovascular: Regular Rate and S1/S2; Negative Murmur or Rub
Pulmonary: Clear and Symmetric; Negative Wheezes or Rales
Gastrointestinal: Soft, Non Tender, Non Distended and Normal Bowel Sounds
Skin: Warm and Dry; Negative Rash or Jaundice
Lines: PICC
Objective Data
Lab Data
Lab Results
03/08/25 06:25
03/08/25 06:25
Estimated Creat Clear 66 ml/min 03/08/25 06:25
Total Bilirubin 0.3 mg/dl (0.2-1.3) 03/03/25 17:59
AST 20 U/L (17-59) 03/03/25 17:59
ALT 15 U/L (0-50) 03/03/25 17:59
Alkaline Phosphatase 142 U/L (38-126) H 03/03/25 17:59
Most recent labs reviewed.
6 AM vancomycin level 12.8
Micro Results:
03/04/25 12:15 MRSA Screen - Final
Nose No Methicillin Resistant Staphylococcus aureus isolated.
03/03/25 19:04 Urine Culture - Final
Urine NO GROWTH
03/03/25 CXR: No acute disease of the chest.
--- NOTE | 2025-03-08 11:42 | W.PN.NEPH.PH ---
Today's Communication / Plan
-
K
Assessment/Plan
-
Impression.
Acute kidney injury creatinine 3.1
PAD/osteo status post BKA, recent right TMA
multibacterial wound culture (B fragilis bld, staph stimulans & deni lusitaniae wnd)
Diabetes. Uncontrolled hemoglobin A1c is as high as 10.4> diabetic for 18 years with diabetic retinopathy
Hypertension now with hypotension
Mild hyponatremia 133
CKD: Baseline creatinine 1.1
Plan.
replete K
flomax increase
eventual voiding trial again in a few days
follow BMP
-
-
Date of Service: March 08, 2025
CC / HPI / ROS
-
Chief Complaint:
LINDY
History of Present Illness:
creatinine improving to 1.3
hemodynamically stable
correa in place for obstructive uropathy, failed voiding trial today
K low 3.4
Review of Systems:
non oliguric
correa
no CP
Labs
-
Labs:
WBC 7.6 10^3/uL (4.8-10.8) 03/08/25 06:25
RBC 3.09 10^6/uL (4.70-6.10) L 03/08/25 06:25
Hgb 9.3 g/dL (13.0-18.0) L 03/08/25 06:25
Hct 27.4 % (39.0-52.0) L 03/08/25 06:25
Plt Count 431 10^3/uL (130-400) H 03/08/25 06:25
Sodium 137 mmol/L (135-145) 03/08/25 06:25
Potassium 3.4 mmol/L (3.5-5.1) L 03/08/25 06:25
Chloride 109 mmol/L (98-107) H 03/08/25 06:25
Carbon Dioxide 21 mmol/L (22-30) L 03/08/25 06:25
BUN 20 mg/dl (9-20) 03/08/25 06:25
Creatinine 1.3 mg/dL (0.7-1.3) 03/08/25 06:25
eGFR > 60.00 03/08/25 06:25
Glucose 77 mg/dl (70-99) 03/08/25 06:25
Calcium 9.2 mg/dl (8.4-10.2) 03/08/25 06:25
Albumin 3.4 g/dl (3.5-5.0) L 03/03/25 17:59
Physical Exam
-
Vital Signs:
Vital Signs
Temp Pulse Resp BP Pulse Ox
99.0 F 91 16 123/78 99
03/08/25 07:20 03/08/25 09:21 03/08/25 07:20 03/08/25 09:21 03/08/25 11:03
Cardiovascular:: Regular rate and rhythm
Respiratory:: Bilateral: Coarse
Lung Excursion:: Normal
Abdomen:: Nontender and Soft
Bowel Sounds:: Normal
Extremity Edema:: None: Bilateral:
[2025-03-08 12:01] VITALS: BP 127/77; PULSE 82; O2SAT 98
--- NOTE | 2025-03-08 15:11 | W.DCSUMMARY ---
Addendum entered and electronically signed by Graciela Bocanegra MD 03/09/25 07:15:
Attending�addendum:
I saw and evaluated the patient independently. I reviewed and discussed the resident�s note and agree with findings and plan as documented in the resident�s note.� patient seen and examined at bedside, denies any chest pain or shortness of breath,
no abdominal pain, no nausea, no vomiting, no diarrhea or constipation.
Bustamante removed with patient failed voiding trial, Bustamante replaced.
Physical�exam:
GENERAL : Patient is awake, alert, oriented x3
HEENT: Nonicteric sclerae, PERRLA, EOMI. Oropharynx clear. Moist mucous membranes. Conjunctivae appear well perfused.
CHEST: Chest wall is nontender.
HEART: Regular rate and rhythm without murmurs.
LUNGS: Clear to auscultation bilaterally.
ABDOMEN: Soft, positive bowel sounds, nontender, no organomegaly.
RECTAL: Deferred.
MUSCLES/EXTREMITIES: Right foot dressing, left BKA
NEUROLOGIC: Cranial nerves II-XII intact without motor/sensory deficit.
�
Assessment/plan:
Acute renal failure.
Improving
Appreciate nephrology input
Hypokalemia.
Replace and keep monitor
Osteomyelitis.
Continue to biotics.
Appreciate ID input
Urinary retention.
Bustamante removed with patient failed voiding trial, Bustamante replaced.
Discussed with urology, will need to follow-up with urology as OP
- Unstageable right heel pressure injury, POA
- Stage 2 sacrum pressure injury, POA
- Stage 2 b/l buttocks pressure injury, POA
CODE STATUS: Full code
Diet: DM diet
Disposition: Medically clear for discharge to rehab.
�
Total time spent on today�s encounter was 40 minutes which included time spent in counseling the patient/family regarding diagnosis and treatment plan as listed above, goals of care, and symptom management. Case was discussed with nursing staff,
specialists, and care coordinators/case management. All labs and imaging personally reviewed by me. Remainder the time spent in detailed review of previous records, lab data, imaging, and other medical provider documentation.
Original Note:
Documented by User: Xenia Preciado DO, Resident 03/08/25 16:20
Discharge Summary
Discharge Data
Date of Admission: 03/03/25
Date of Discharge: 03/08/25
-
Pending Results: No
Hospital Course
Primary diagnosis: Acute kidney injury
Secondary diagnosis: Urinary retention, osteomyelitis, peripheral arterial disease, type 2 diabetes
Hospital course:
Patient is a 59-year-old male with PMH significant for hypertension, hyperlipidemia, ctu-gwgsobh-lrowesrvd diabetes, PAD s/p left BKA (June) and s/p right TMA (december), who was recently admitted for osteomyelitis and started on IV antibiotics
s/p limflow procedure who is now presenting to the emergency department with concern for lethargy. During last admission for osteomyelitis, patient was started on vancomycin, ertapenem and fluconazole planned for 6 weeks. Patient was in rehab at
[facility] when they noticed he was lethargic fatigued and unable to void urine.
In the ED, patient was found to have 1 L of urine retained and a Bustamante catheter was placed. Blood work revealed elevated creatinine of 3.1, indicating LINDY. WBC 11.8, Hgb 7.8, sodium 134, potassium 3.3, glucose 105. Urinalysis with 1+ occult
blood, 3�6 urine RBC, moderate urine bacteria, 3+ urine glucose, 3+ urine albumin. Random vancomycin 30.7.
Patient was admitted for further workup of LINDY. Nephrology, podiatry, wound care consulted.
LINDY
Initially with Bustamante catheter in place, creatinine improved over admission, downtrend to 1.3 on day of discharge. We continued to hold patient's lisinopril, acetazolamide and metformin during admission. Kidney and bladder ultrasound was completed
and did not indicate any obstruction or hydronephrosis. On fourth day of admission, void trial attempted and failed. Bustamante catheter was replaced. Patient will follow up with urology out patient within 1 week of discharge.
Osteomyelitis
Patient with history of hospitalization for osteomyelitis after right transmetatarsal amputation. Patient requires 6 weeks continuation of antibiotics: vancomycin, ertapenem and fluconazole. While admitted, pharmacy dosed vancomycin and fluconazole
renally. Upon discharge ID changed vancomycin to daptomycin. Patient will continue daptomycin, ertapenem until 03/26/2025. Patient will continue fluconazole for a total of 6 months, completing course on 08/17/2025. Wound care and podiatry saw
patient during admission. Patient is scheduled for podiatry follow-up in 2 to 3 weeks for possible debridement of wound of right TMA. Patient will follow-up with ID in 6 to 8 weeks.
Hypokalemia
Patient requiring repletion of potassium during admission. Magnesium within normal limits.
Acute on chronic symptomatic anemia
On the first day of admission, patient's hemoglobin was 6.9. Patient was feeling fatigued and weak. Patient received 1 unit packed red blood cells for hemoglobin < 7.0. Hemoglobin improved over admission. Patient notes improvement in fatigue.
Patient will be discharged to SNF.
Imaging:
03/03/2025 chest x-ray
IMPRESSION:
No acute disease of the chest.
03/05/2025 renal ultrasound
IMPRESSION:
Unremarkable sonographic appearance of the kidneys.
The urinary bladder is decompressed with Bustamante catheter.
Discharge Plan
-
Patient Disposition: Fpc/SNF
Discharge Diagnosis/Procedures: Acute kidney injury, urinary retention, hypokalemia, osteomyelitis
Condition: Fair
Diet: Diabetic, Carb Controlled
Activity: With assistance and As tolerated
Driving Restrictions: No driving
Bathing Restrictions: None
Activity Restrictions/Additional Instructions:
Wound Care Instructions
Rt TMA - apply santyl and dry guaze dressing daily and Rt Heel apply ABD pad daily
Fiber filled boot when in bed to R heel
L BKA per Podiatry.
Sacrum and buttocks: clean with soap and water, Xeroform to open areas followed by sacral silicone bordered foam, change q other day and prn soilage.
Air mattress if SNF
Roho cushion for wheelchair
Follow up with Podiatry.
Continue daptomycin and ertapenem through 03/26/2025.
Continue fluconazole for 6 months total 02/17/2025 through 08/17/2025.
Follow-up with ID clinic in 6 to 8 weeks.
Please follow-up in less than [address] Maurizio Cain, urology, for management of Bustamante catheter and void trial.
Referrals:
Maurizio Cain MD [Active, Urology] - in less than 1 week
Wilmer Faria MD [Family Provider]
Vivien Heath DPM [Specified Professional Personl, Podiatry]
Terri Boucher MD [Active, Infectious Diseases]
Prescriptions:
New
tamsulosin 0.4 mg Capsule
0.8 mg PO DAILY Qty: 30 0RF
DAPTOmycin [Cubicin] 900 MG
Syringe [Syringe-Pump] 0 ML
As Directed mls/hr IV Q24H
Reason for use: Osteomyelitis
Ordered By: Xenia Preciado, , Resident
Last Taken: Unknown
Continued
metformin 750 mg Tablet Extended Release 24 Hr
750 mg PO DAILY
amlodipine [Norvasc] 10 mg Tablet
10 mg PO DAILY
sumatriptan succinate 25 mg tablet
25 mg PO Q2HPRN PRN (Reason: headache)
oxycodone-acetaminophen 5-325 mg tablet
2 tab PO Q6HPRN PRN (Reason: moderate pain)
prednisolone acetate 1 % drops,suspension
1 drp LEFT EYE QID
brimonidine 0.2 % drops
1 drp LEFT EYE BID
dorzolamide-timolol 22.3-6.8 mg/mL drops
1 drp LEFT EYE BID
Santyl 250 unit/gram ointment
1 applic TOPICAL DAILY
atropine 1 % drops
1 drp LEFT EYE BID
Ozempic 0.25 mg or 0.5 mg (2 mg/3 mL) pen injector
0.5 mg SC WEEKLY
hydralazine 50 mg tablet
50 mg PO TID
ferrous fumarate 324 mg (106 mg iron) tablet
324 mg PO Q48H
aspirin 81 mg tablet,chewable
81 mg PO DAILY
fluconazole 200 mg Tablet
400 mg PO DAILY Qty: 30 0RF
prasugrel HCl 10 mg Tablet
10 mg PO DAILY Qty: 30 0RF
gabapentin 300 mg Capsule
300 mg PO TID Qty: 30 0RF
Ertapenem [Invanz] 1000 MG
0.9% Sodium Chloride [Nss] 50 ML
120 mls/hr IV Q24H
Ordered By: Jose Maria Owens MD, Resident
Last Taken: Unknown
dapagliflozin propanediol 10 mg Tablet
10 mg PO DAILY 30 Days Qty: 30 0RF
clonidine HCl 0.1 mg tablet
0.1 mg PO DAILY 30 Days Qty: 30 0RF
Held
hydrochlorothiazide 25 mg Tablet
25 mg PO DAILY
Hold Instructions: Restart on 03/27/2025
lisinopril 40 mg tablet
40 mg PO DAILY
Hold Instructions: Restart on 03/27/2025
acetazolamide 250 mg tablet
500 mg PO BID
Hold Instructions: Restart on 03/27/2025
rosuvastatin 20 mg Tablet
20 mg PO DAILY 30 Days Qty: 30 0RF
Hold Instructions: Restart on 03/27/2025
Discontinued
VANCOMYCIN Pharmacy to Dose [VANCOCIN Pharmacy to Dose] 1 EACH
Pharmacy To Prepare [Call Pharmacy To Prepare] 0 ML
As Directed mls/hr IV PER PROTOCOL
Ordered By: Jose Maria Owens MD, Resident
Last Taken: Unknown
Discharge Orders:
Discharge Patient (As Directed); Ordered 03/08/25
Ordered By: Xenia Preciado
Discharge Date and Time
Discharge Date/Time: 03/08/25 19:39
Print Language: LEBANESE

Documented by User: Graciela Bocanegra MD 03/09/25 07:15
Discharge Summary
Discharge Data
Date of Admission: 03/03/25
Date of Discharge: 03/09/25
Discharge Plan
-
Patient Disposition: Fpc/SNF
Discharge Diagnosis/Procedures: Acute kidney injury, urinary retention, hypokalemia, osteomyelitis
Condition: Fair
Diet: Diabetic, Carb Controlled
Activity: With assistance and As tolerated
Driving Restrictions: No driving
Bathing Restrictions: None
Activity Restrictions/Additional Instructions:
Wound Care Instructions
Rt TMA - apply santyl and dry guaze dressing daily and Rt Heel apply ABD pad daily
Fiber filled boot when in bed to R heel
L BKA per Podiatry.
Sacrum and buttocks: clean with soap and water, Xeroform to open areas followed by sacral silicone bordered foam, change q other day and prn soilage.
Air mattress if SNF
Roho cushion for wheelchair
Follow up with Podiatry.
Continue daptomycin and ertapenem through 03/26/2025.
Continue fluconazole for 6 months total 02/17/2025 through 08/17/2025.
Follow-up with ID clinic in 6 to 8 weeks.
Please follow-up in less than [address] Maurizio Cain, urology, for management of Bustamante catheter and void trial.
Referrals:
Mauriizo Cain MD [Active, Urology] - in less than 1 week
Wilmer Faria MD [Family Provider]
Vivien Heath DPM [Specified Professional Personl, Podiatry]
Terri Boucher MD [Active, Infectious Diseases]
Prescriptions:
New
tamsulosin 0.4 mg Capsule
0.8 mg PO DAILY Qty: 30 0RF
DAPTOmycin [Cubicin] 900 MG
Syringe [Syringe-Pump] 0 ML
As Directed mls/hr IV Q24H
Reason for use: Osteomyelitis
Ordered By: Xenia Preciado DO, Resident
Last Taken: Unknown
Continued
metformin 750 mg Tablet Extended Release 24 Hr
750 mg PO DAILY
amlodipine [Norvasc] 10 mg Tablet
10 mg PO DAILY
sumatriptan succinate 25 mg tablet
25 mg PO Q2HPRN PRN (Reason: headache)
oxycodone-acetaminophen 5-325 mg tablet
2 tab PO Q6HPRN PRN (Reason: moderate pain)
prednisolone acetate 1 % drops,suspension
1 drp LEFT EYE QID
brimonidine 0.2 % drops
1 drp LEFT EYE BID
dorzolamide-timolol 22.3-6.8 mg/mL drops
1 drp LEFT EYE BID
Santyl 250 unit/gram ointment
1 applic TOPICAL DAILY
atropine 1 % drops
1 drp LEFT EYE BID
Ozempic 0.25 mg or 0.5 mg (2 mg/3 mL) pen injector
0.5 mg SC WEEKLY
hydralazine 50 mg tablet
50 mg PO TID
ferrous fumarate 324 mg (106 mg iron) tablet
324 mg PO Q48H
aspirin 81 mg tablet,chewable
81 mg PO DAILY
fluconazole 200 mg Tablet
400 mg PO DAILY Qty: 30 0RF
prasugrel HCl 10 mg Tablet
10 mg PO DAILY Qty: 30 0RF
gabapentin 300 mg Capsule
300 mg PO TID Qty: 30 0RF
Ertapenem [Invanz] 1000 MG
0.9% Sodium Chloride [Nss] 50 ML
120 mls/hr IV Q24H
Ordered By: Jose Maria Owens MD, Resident
Last Taken: Unknown
dapagliflozin propanediol 10 mg Tablet
10 mg PO DAILY 30 Days Qty: 30 0RF
clonidine HCl 0.1 mg tablet
0.1 mg PO DAILY 30 Days Qty: 30 0RF
Held
hydrochlorothiazide 25 mg Tablet
25 mg PO DAILY
Hold Instructions: Restart on 03/27/2025
lisinopril 40 mg tablet
40 mg PO DAILY
Hold Instructions: Restart on 03/27/2025
acetazolamide 250 mg tablet
500 mg PO BID
Hold Instructions: Restart on 03/27/2025
rosuvastatin 20 mg Tablet
20 mg PO DAILY 30 Days Qty: 30 0RF
Hold Instructions: Restart on 03/27/2025
Discontinued
VANCOMYCIN Pharmacy to Dose [[facility] Pharmacy to Dose] 1 EACH
Pharmacy To Prepare [Call Pharmacy To Prepare] 0 ML
As Directed mls/hr IV PER PROTOCOL
Ordered By: Jose Maria Owens MD, Resident
Last Taken: Unknown
Discharge Orders:
Discharge Patient (As Directed); Ordered 03/08/25
Ordered By: Xenia Preciado
Discharge Date and Time
Discharge Date/Time: 03/08/25 19:39
Print Language: LEBANESE
--- NOTE | 2025-03-08 15:12 | CM ---
CM reviewed pt with resident and attending- ready for dc
Plan for ertanpenem and dapto on dc
Update to SNF admissions and they confirmed abx capability at SNF
Bedside visit with pt who is in agreement with plan
Auth obtained throug [facility] for SNF and BLS, pt has utilized 39/120 of his SNF days
Rx received from ID and forwarded to SNF via [facility]
SNF auth # [id number] 03/08-03/14 (NRD) p- [phone]
[facility] one way good for 03/08 and 02/27 #[id number]
CM offered call to family with update, pt declined
Discharge Disposition- return [facility] with IV abx, BLS
Phone- [phone] Fax- [phone]
[2025-03-08 15:15] VITALS: BP 131/74
[2025-03-08] MEDS: PRED FORTE 1% EYE DROPS LEFT EYE (18:27)
[2025-03-08 19:29] VITALS: BP 135/77
== END 2025-03-08 19:39 | DRG 683 ==
LOC: 2 NORTH 20:31
PROVIDERS: Hospitalist; Physician Assistant Medical; Specialist; ADMITTING PHYSICIAN Internal Medicine; ATTENDING PHYSICIAN General Practice; CONSULT PHYSICIAN Internal Medicine Infectious Disease; CONSULT PHYSICIAN Podiatrist Foot & Ankle Surgery; EMERGENCY PHYSICIAN Student in an Organized Health Care Education/Training Program; FAMILY PHYSICIAN Internal Medicine; OTHER PHYSICIAN Specialist
PROC: 30243N1 Transfusion of Nonautologous Red Blood Cells into Central Vein, Percutaneous Approach (ICD-10-PCS; 2025-03-04)
DX: N17.9 Acute kidney failure, unspecified (principal); E87.1 Hypo-osmolality and hyponatremia; I13.0 Hypertensive heart and chronic kidney disease with heart failure and stage 1 through stage 4 chronic kidney disease, or unspecified chronic kidney disease; M86.671 Other chronic osteomyelitis, right ankle and foot; E87.20 Acidosis, unspecified; E11.69 Type 2 diabetes mellitus with other specified complication; R33.9 Retention of urine, unspecified; N18.2 Chronic kidney disease, stage 2 (mild); E78.00 Pure hypercholesterolemia, unspecified; E11.319 Type 2 diabetes mellitus with unspecified diabetic retinopathy without macular edema; E11.51 Type 2 diabetes mellitus with diabetic peripheral angiopathy without gangrene; D63.1 Anemia in chronic kidney disease; E11.22 Type 2 diabetes mellitus with diabetic chronic kidney disease; E87.6 Hypokalemia; F17.290 Nicotine dependence, other tobacco product, uncomplicated; F32.A Depression, unspecified; G62.9 Polyneuropathy, unspecified; L89.152 Pressure ulcer of sacral region, stage 2; L89.610 Pressure ulcer of right heel, unstageable; L89.322 Pressure ulcer of left buttock, stage 2; I95.9 Hypotension, unspecified; D75.839 Thrombocytosis, unspecified; L89.312 Pressure ulcer of right buttock, stage 2; E66.9 Obesity, unspecified; Z68.29 Body mass index [BMI] 29.0-29.9, adult; Z79.899 Other long term (current) drug therapy; Z79.02 Long term (current) use of antithrombotics/antiplatelets; Z89.512 Acquired absence of left leg below knee
CPT/HCPCS: 51702; 51798; 71046; 76770; 80048; 80053; 80202; 81003; 81015; 82550; 82607; 82728; 82962; 83540; 83550; 83735; 85014; 85018; 85025; 85027; 86850; 86900; 86901; 86920; 87070; 87086; 93005; 96360; 96361; 97163; 97167; 97530; 99285; J0878; J1335; P9016

== ENCOUNTER 2025-03-28 13:38 | Inpatient (IN) | payer BC, SELFPAY ==
[2025-03-28] VITALS (12 sets, daily range): BP systolic 128–154; BP diastolic 66–75; BMI 28.4
[2025-03-28] MEDS: NSS 1000 IV (09:33)
[2025-03-28 09:42] LABS: Hematocrit 25.9 % (39.0-52.0); Hemoglobin 8.5 g/dL (13.0-18.0); Mean Corp Hgb Conc. 32.8 g/dL (33.0-37.0); Mean Corpuscular Volume 87.2 fL (80.0-94.0); Nucleated Red Blood Cells % 0.2 % (-); Platelet Count 521 10^3/uL (130-400); Red Cell Dist. Width 15.8 % (11.5-14.5)
--- NOTE | 2025-03-28 09:42 | ED.GENMED ---
History of Present Illness
General
Chief Complaint: Breathing Problem
Time Seen by Provider: 03/28/25 09:12
History of Present Illness
History of Present Illness:
59-year-old male with history of diabetes with left BKA and right foot TMA with osteomyelitis on antibiotics, peripheral vascular disease, CAD presenting to the emergency department for shortness of breath and hypoxia. Patient arrives from nursing
facility where over the weekend patient was reporting shortness of breath. Patient was subsequently placed on supplemental O2. He reports that he is not usually on oxygen. He reports an occasional cough, nonproductive. On review of EMR, patient
had a chest x-ray done at his facility on 03/24 which showed a right upper lobe infiltrate. On 03/26, patient was started on Levaquin. Patient with known right osteomyelitis, has been receiving antibiotics through his PICC line, however
antibiotics were completed on 03/26, daptomycin and ertapenem. However, patient is to get fluconazole for 6 months. Patient denies any increased pain to his extremities. He denies chest pain or abdominal pain, or additional acute medical
complaints
Past History
Past History
ED Past Medical History: CHF, HTN, Hypercholesterolemia, IDDM, Other (Diabetic retinopathy) and Other (PVD, MIKE)
ED Past Surgical History: Orthopedic (ORIF pelvic fx 2015) and Other (Right transmetatarsal amputation 12/2024, Left below the knee amputation 08/2024)
Social History
Tobacco: Other (occasional cigar)
Alcohol: Occasional
Drug: None
Personal: Single
Living: prison
Employment: Employed
Family History
Family History: Other (Mother- colon cancer, brother -stomach cancer)
Phy Exam
Physical Exam
Physical Exam:
General: Well-appearing, no clinical signs of dehydration, nontoxic and in no acute distress
HEENT: protecting airway
Neck: appears supple
CV: Tachycardic, regular rhythm, no evidence of cyanosis
Resp: Mild increased work of breathing, with scattered rhonchi
Abd: no distention
Extremities: Left BKA, right foot TMA. Distal wound without erythema or active drainage. Wound to the heel without active drainage or erythema
Neuro: alert, no focal neurologic deficit
: deferred
Rectal: deferred
Psych: Normal affect
Skin: Intact
Scores
Heart Failure Risk
Heart Failure Risk Score: Not Applicable
Sepsis
Sepsis Screening
Sepsis Assessment: Sepsis
Sepsis Screen
Sepsis Screen: Sepsis
Date: 03/28/25
Time: 15:54
Course
Orders/Labs/Results
Orders:
Orders
03/28/25 09:28
COVID-19 Antigen Urgent
Source: Nasal Swab
Complete Blood Count/With Diff Urgent
Comprehensive Metabolic Panel Urgent
Blood Culture Urgent
DIANA Source: Blood/Venous
Specimen Description:
Influenza A+B Rapid Molecular Urgent
DIANA Source: Nasal Swab
Specimen Description:
03/28/25 09:29
Lactic Acid Urgent
0.9% Sodium Chloride 1000 ml [Nss] 1,000 ml IV BOLUS
03/28/25 10:08
CR Chest Portable - 1 View Urgent
Comment:
Reason For Exam: suspected pneumonia
Reason Study Needs to be Portable: Patient Unstable
03/28/25 10:22
Electrocardiogram (*1) Urgent
Reason for Study: Shortness of Breath
EKG- Treatment ONCE
03/28/25 10:34
NT-proBNP Urgent
Blood Culture Urgent
DIANA Source: Blood/Venous
Specimen Description:
Influenza A+B Rapid Molecular Routine
DIANA Source: [facility]
Specimen Description:
03/28/25 11:05
Cefepime HCl [Maxipime] 2,000 mg IV NOW STA
03/28/25 11:07
Vancomycin [Vancocin] 2,000 mg 0.9% Sodium Chloride 500 ml [Nss] 500 ml IV NOW
03/28/25 12:40
Azithromycin 500 mg/250 ml [Zithromax Infusion] 500 mg in 250 ml IV NOW
03/28/25 12:47
Potassium Chloride [KCl] 20 meq 0.9% Sodium Chloride 250 ml [Nss] 250 ml IV NOW
03/28/25 12:48
Admit/Transfer Patient As Directed
Co-Sign Provider:
Level of Care: Inpatient admission
Assign to:: IMU- Intermediate Care
Physician / Group: Sindy Burgos
Diagnosis: multifocal pneumonia
Reason for Hospitalization: hypoxic resp failure
Expected length of stay greater than two midnights?: Yes
ELOS- Estimated Length of Stay in days: 4
I certify the patient meets the requirements for IP care: Yes
PRN Pain Medication Management As Directed
May give lesser potent ordered pain med per pt: Yes
preference::
Protocol:: Medication orders for pain may be administered in a
manner that supports deferring to patient preference
when the pt is:
- Requesting an ordered lesser potent pain medication.
Least to most potent pain medications are defined
as: acetaminophen < NSAID < tramadol < opioids
(morphine, oxycodone, hydromorphone).
- Requesting a lesser dose of the same medication IF
ORDERED.
- Requesting a less intrusive route of administration
if both routes are prescribed by the provider (PO <
IV).
03/28/25 12:52
Code Status As Directed
Resuscitation Status: Full Code
Abnormal Lab Results
03/28/25
09:28
RBC 2.97 L 10^6/uL
(4.70-6.10)
Hgb 8.5 L g/dL
(13.0-18.0)
Hct 25.9 L %
(39.0-52.0)
MCHC 32.8 L g/dL
(33.0-37.0)
RDW 15.8 H %
(11.5-14.5)
Plt Count 521 H 10^3/uL
(130-400)
Abs Immat Gran (auto) 0.1 H 10^3/uL
(0-0.05)
Absolute Neuts (auto) 7.8 H 10^3/uL
(1.4-6.5)
Absolute Lymphs (auto) 0.8 L 10^3/uL
(1.2-3.4)
Absolute Eos (auto) 1.1 H 10^3/uL
(0-0.7)
Immature Gran % 1.3 H %
(0-0.5)
Neutrophils % 77.1 H %
(42.2-75.2)
Lymphocytes % 7.7 L %
(20.5-51.1)
Eosinophils % 10.4 H %
(0-6)
Sodium 132 L mmol/L
(135-145)
Potassium 3.4 L mmol/L
(3.5-5.1)
Carbon Dioxide 19 L mmol/L
(22-30)
AST 84 H U/L
(17-59)
ALT 79 H U/L
(0-50)
Alkaline Phosphatase 174 H U/L
(38-126)
Total Protein 5.9 L g/dl
(6.3-8.2)
Albumin 2.8 L g/dl
(3.5-5.0)
03/28/25 09:28
03/28/25 09:28
Vital Signs
Initial and Last Documented VS:
Initial Vital Signs
Temp Pulse Resp BP Pulse Ox
97.3 F 102 30 139/71 81
03/28/25 09:04 03/28/25 09:04 03/28/25 09:04 03/28/25 09:04 03/28/25 09:04
Last Documented Vital Signs
Temp Pulse Resp BP Pulse Ox
97.3 F 109 21 143/71 95
03/28/25 09:04 03/28/25 15:30 03/28/25 15:30 03/28/25 15:00 03/28/25 15:30
MDM/Problems Addressed
MDM/Problems Addressed:
59-year-old male with history of diabetes with left BKA and right foot TMA with osteomyelitis on antibiotics, peripheral vascular disease, CAD presenting for cough and shortness of breath. Vital signs on arrival significant for tachycardia and
hypoxia.
On exam, patient stable on supplemental O2. Scattered rhonchi bilaterally. Patient had a chest x-ray completed at his facility on 03/24, which did show a right upper lobe pneumonia, started on Levaquin. At this time concern for failure of
outpatient therapy and hospital-acquired pneumonia. Patient meeting SIRS criteria. Plan for laboratory analysis, cultures, chest x-ray imaging. Will also start patient on IV fluids
11:00 - Patient's chest x-ray shows concern for multifocal pneumonia. Patient placed on high flow oxygen due to increasing oxygen requirements. Plan for broad-spectrum antibiotics and admission.
*Pulse Oximetry
SaO2: 81
Oxygen Mode of Delivery: Room air
Patient hypoxic: yes
*Critical Care Note
Total Time (30-74mins, 75-104mins- exclusive of procedures): Not Applicable
ED Attending Note
-
Portions of this chart may have been created with voice recognition software.� Occasional wrong word or��sound alike� substitutions may have occurred due to the inherent limitations of voice recognition software.
Discharge Plan
Departure
Patient Disposition: Admit
Date of Disposition: 03/28/25
Time of Disposition: 11:12
Presentation/result/management discussed w/ accepting MD/DO: Hospitalist
Patient with high blood pressure during this ER visit?: No
Condition: Fair
Discharge Problem:
Multifocal pneumonia, Sepsis
Interventions
Interventions:
*General Assessment Last Done: 03/28/25 09:04
*Neglect/Abuse Screening Last Done: 03/28/25 09:35
*ED COVID-19 Vaccine History Last Done: 03/28/25 09:35
*ED Influenza Vaccine History Last Done: 03/28/25 09:35
[facility] Fall Risk Assessment Tool Last Done: 03/28/25 09:04
*Risk Screen - Suicide (C-SSRS) Last Done: 03/28/25 09:35
ED- Cardiac Assessment Last Done: 03/28/25 09:35
ED- Pulmonary Assessment Last Done: 03/28/25 09:35
[2025-03-28 09:52] LABS: COVID-19 Antigen Negative (Negative)
[2025-03-28 09:58] LABS: ALT (SGPT) 79 U/L (0-50); AST (SGOT) 84 U/L (17-59); Albumin 2.8 g/dl (3.5-5.0); Alkaline Phosphatase 174 U/L (38-126); Blood Urea Nitrogen 17 mg/dl (9-20); Calcium 8.5 mg/dl (8.4-10.2); Carbon Dioxide 19 mmol/L (22-30); Chloride 102 mmol/L (98-107); Estimated Creatinine Clearance 86 ml/min; Glucose 86 mg/dl (70-99); Potassium 3.4 mmol/L (3.5-5.1); Sodium 132 mmol/L (135-145); Total Protein 5.9 g/dl (6.3-8.2); eGFR > 60.00
[2025-03-28] MEDS: MAXIPIME 2000 MG IV ×2 (11:11→20:38)
[2025-03-28] MEDS: VANCOCIN 540 MG IV (11:40)
--- NOTE | 2025-03-28 12:16 | HPS.HSE ---
Family Physician
-
Family Physician: Wilmer Faria
Chief Complaint
-
shortness of breath and hypoxia
History of Present Illness
Mr. Elio Chapman is a 59 yo man with hx IDDM, essential HTN, CKD, PAD s/p left AKA 07/06 and s/p right TMA 01/06 admitted 02/13-02/22 for acute osteomyelitis of right metatarsal amputation (s/p limflow procedure discharged 6 weeks
Vanc/Ertapenem/Fluconazole) admitted again 03/03-03/08 for lethargy, LINDY s/p correa catheter, IV Vanc changed to IV Daptomycin and completed antibiotics 03/26/25 then with worsening shortness of breath and hypoxia over the weekend. He was prescribed
Levaquin at [place].
Patient is a poor historian. Seen with famly at bedside. He was placed on O2 2 days ago at [facility] with progressive shortness of breath. No measured fevers. + intermittent cough. No chest pain. No LE swelling.
He has had very poor appetite. No nausea/vomiting/diarrhea.
Medical History
Past Medical History
Past Medical History: Reports Other (PAD status post angioplasty right proximal anterior tibial artery/right posterior tibial artery, right partial hallux amputation, resection of base of proximal phalanx and partial first metatarsal, osteomyelitis
status post transmetatarsal amputation, anemia of chronic disease, type 2 diabetes, cons)
Past Surgical History: Reports Other (amputations )
Social History
Tobacco: Non-smoker
Alcohol: None
Drug: None
Family History
Family History: Not pertinent
Allergies / Home Medications
Allergies reflects when Allergies were last updated in [employer].
Home Medications with original date entered in [employer]
Allergy/Medication List:
Allergies
Allergy/AdvReac Type Severity Reaction Status Date / Time
No Known Allergies Allergy Verified 03/28/25 09:09
Home Medications
clonidine HCl 0.1 mg tablet 0.1 mg PO DAILY Blood pressure 30 days #30 tabs 09/15/24
dapagliflozin propanediol 10 mg tablet 10 mg PO DAILY Diabetes 30 days #30 tabs 09/15/24
amlodipine 10 mg tablet (Norvasc) 10 mg PO DAILY Blood Pressure 12/03/24
metformin 750 mg tablet,extended release 24 hr 750 mg PO DAILY Diabetes 12/03/24
atropine 1 % eye drops 1 drp LEFT EYE BID Eye Condition 02/13/25
brimonidine 0.2 % eye drops 1 drp LEFT EYE BID Eye Condition 02/13/25
collagenase clostridium histo. 250 unit/gram topical ointment (Santyl) 1 applic topical DAILY PRN infection site 02/13/25
dorzolamide 22.3 mg-timolol 6.8 mg/mL eye drops 1 drp LEFT EYE BID Eye Condition 02/13/25
ferrous fumarate 324 mg (106 mg iron) tablet 324 mg PO Q48H Supplement 02/13/25
hydralazine 50 mg tablet 50 mg PO TID Blood Pressure 02/13/25
prednisolone acetate 1 % eye drops,suspension 1 drp LEFT EYE QID Eye Condition 02/13/25
sumatriptan succinate 25 mg tablet 25 mg PO Q2HPRN PRN headache 02/13/25
aspirin 81 mg chewable tablet 81 mg PO DAILY Heart Disease/Condition 02/14/25
fluconazole 200 mg tablet 400 mg (2 x 200 mg) PO DAILY #30 tabs 02/21/25
gabapentin 300 mg capsule 300 mg PO TID #30 caps 02/21/25
prasugrel HCl 10 mg tablet 10 mg PO DAILY #30 tabs 02/21/25
tamsulosin 0.4 mg capsule 0.8 mg (2 x 0.4 mg) PO DAILY Urinary retention #30 caps 03/08/25
acetaminophen 325 mg tablet 650 mg PO Q4H PRN pain/fever 03/28/25
acetazolamide 250 mg tablet 500 mg PO BID 03/28/25
bisacodyl 10 mg rectal suppository 10 mg MN DAILY PRN if milk of magnesia is ineffective after 24 hours 03/28/25
guaifenesin 100 mg/5 mL oral liquid 200 mg PO Q4H PRN cough 03/28/25
hydrochlorothiazide 25 mg tablet 25 mg PO DAILY 03/28/25
ipratropium 0.5 mg-albuterol 3 mg (2.5 mg base)/3 mL nebulization soln 3 ml inhalation Q4H PRN sob or wheezing 03/28/25
levofloxacin 750 mg tablet 750 mg PO DAILY 03/28/25
lisinopril 40 mg tablet 40 mg PO DAILY 03/28/25
magnesium hydroxide 400 mg/5 mL oral suspension (Milk of Magnesia) 30 ml PO DAILY PRN if no bowel movement in 3 days 03/28/25
melatonin 3 mg tablet 3 mg PO HS PRN sleep 03/28/25
oxycodone 10 mg tablet 10 mg PO Q4H PRN severe pain 03/28/25
rosuvastatin 20 mg tablet 20 mg PO QPM 03/28/25
sertraline 25 mg tablet 25 mg PO DAILY 03/28/25
sodium phosphates 19 gram-7 gram/118 mL enema (Fleet Enema) 118 ml MN DAILYPRN PRN if dulcolax is ineffective after 24 hrs 03/28/25
Review of Systems
-
History Source: Patient
A 12 point ROS was completed and negative except as noted: Yes
Physical Exam
Vital Signs
Vital Signs
Temp Pulse Resp BP Pulse Ox
97.3 F 102 51 139/66 96
03/28/25 09:04 03/28/25 12:00 03/28/25 12:00 03/28/25 12:00 03/28/25 12:00
Physical Exam
General: Other (patient appears frail, on high flow )
HEENT: PERRLA
Respiratory: Rhonchi; No Wheezes
Cardiac: S1/S2 and Regular Rhythm
GI: Soft and Non Tender
Musculoskeletal: Other (left AKA; right foot wrapped )
Skin: Warm and Dry; No Rash
Neuro: AO x 3
Psych: Calm
Laboratory Results
-
03/28/25 09:28
03/28/25 09:
Laboratory Results
Lactic Acid 0.9 mmol/L (0.7-2.0) 03/28/25 09:29
Total Bilirubin 0.6 mg/dl (0.2-1.3) 03/28/25 09:
AST 84 U/L (17-59) H 03/28/25 09:28
ALT 79 U/L (0-50) H 03/28/25:
Alkaline Phosphatase 174 U/L (38-126) H 03/28/25 09:
Data Reviewed
-
Diagnostic Radiology: Report Reviewed by me
Lab Data: Labs Reviewed by me
Impression/Plan
-
Mr. Elio Chapman is a 59 yo man with hx IDDM, essential HTN, CKD, PAD s/p left AKA 07/06 and s/p right TMA 01/06 admitted 02/13-02/22 for acute osteomyelitis of right metatarsal amputation (s/p limflow procedure discharged 6 weeks
Vanc/Ertapenem/Fluconazole) admitted again 03/03-03/08 for lethargy, LINDY s/p correa catheter, IV Vanc changed to IV Daptomycin and completed antibiotics 03/26/25 then with worsening shortness of breath and hypoxia over the weekend.
Triage VS: T 97.3, P 102, RR 30, BP 139/71, SpO2 81%
patient required high flow in the ER with increasing oxygen requirements
LABS: WBC 10.2, Hg 8.5, PLT 521, Na 132, K+ 3.4, Cl 102, CO2 19, Cr 1.0, Glucose 86, T. Bili 0.6, AST 84, ALT 79, Alk PHos 174, BNP 575
Flu and Covid Negative
CXR with multifocal pneumonia
MAR: IVF, IV Vanc/Cefepime
Hypoxic Respiratory Failure
Multifocal Pneumonia
-patient with new hypoxia and multifocal pneumonia with symptoms onset one day after completing antibiotics
-admit to IMU
-will continue IV Vanc and obtain MRSA swab. IV Cefepime (wasn't covered for Pseudomonas prior). Start Oral Azithro tomorrow for atypical coverage (got LEvaquin earlier)
-follow up blood cultures, sputum culture
-Legionella, Strep Pneumo Ag testing
-hold PROPERTY [employer] CLAIMS ADJUSTOR daily Fluconazole - follow up with specialists if remains indicated, QTc OK
-ID and Pulmonary consulted
-LR @ 80
-ST Eval
PAD s/p left AKA 07/06;
s/p right TMA 01/06
Osteomyelitis at right TMA amputation site s/p 6 weeks IV antibiotics completed 03/26
-continue PROPERTY [employer] CLAIMS ADJUST[employer] Aspirin, Prasugrel
-ID consult as above
-wound care
-PT/OT
CKD III with baseline creatinine 1.1
-LR
-monitor daily
Essential HTN
-PROPERTY [employer] CLAIMS ADJUSTOR regimen:
Clonidine 01.5mg PO QD
Hydralazine 50mg PO TID with hold parameters
Lisinopril 40mg PO QD - will order 1/2 dose for now
hold PROP[employer]S ADJUST[employer] HCTZ
NIDDM
-A1c 5.7%
-hold PROP[employer] ADJUSTOR Farxiga given poor PO intake
-hold Metformin
-ISS low
HLD - PROPERTY [employer] CLAIMS ADJUSTOR Statin
Anxiety - PROPERTY [employer] CLAIMS ADJUSTOR Zoloft
BPH - PROPERTY [employer] CLAIMS ADJUSTOR Flomax
DVT PPx hep subQ
FULL CODE
76 minutes spent on patient care
--- NOTE | 2025-03-28 12:48 | CON.ID ---
Consultation
-
Date/Time Consultation Requested: 03/28/25 12:46
Date/Time Consultation Performed: 03/28/25 14:35
Requesting Provider: Dr Burgos
Performing Provider: Dr Boucher
Reason for Consultation: Pneumonia
Chief Complaint / Past History
Chief Complaint
shortness of breath and hypoxia
History of Present Illness
Mr Chapman is a 59 year old male with history of DM2, PAD s/p L AKA 07/06 and right TMA 01/06, limbflow procedure 02/17/25 with underlying osteomyelitis with deep cultures with S simulans, C lusitaniae, B fragilis now s/p 6 weeks of IV
daptomycin/ertapenem completed 03/26 also on a 6 month course of fluconazole for the deni who presented here today for a two day history of progressive shortness of breath and nonproductive cough. No fever, chest pain, or lower extremity
swelling. No sick contacts. Appetite is poor but no nausea, vomiting or diarrhea. He was prescribed levaquin outpatient yesterday however symptoms progressed and he presented here. His R sided PICC line remains in place.
Since arrival here he has been afebrile, bp stable, currently on midflow NC at 10 L with saturations in the low 90s, wbc 10.2, hgb 8.5, plt 521, L shift is present, na 132, cr 1.0, lactic acid 0.9, probnp 575 indetermident, covid and influenza
screens negative, strep pneumo and legionella urine antigens in progress, he is currently on vancomycin, cefepime, had a dose of azithromycin today, ID is consulted for assistance with management.
Past History
Additional Past Medical History:
PAD status post angioplasty right proximal anterior tibial artery/right posterior tibial artery, right partial hallux amputation, resection of base of proximal phalanx and partial first metatarsal, osteomyelitis status post transmetatarsal
amputation, anemia of chronic disease, type 2 diabetes
Additional Past Surgical History:
as per hpi
Allergy History:
No Known Allergies Allergy (Verified 03/28/25 09:09)
Medications Reviewed: Yes
Social History
Tobacco: Non-Smoker
Alcohol: None
Drug: None
Family History
Family History: Not Pertinent
Review of Systems
Review of Systems
A 12 point ROS was completed and negative except as noted: Yes
Vital Signs
Temp Pulse Resp BP Pulse Ox
97.3 F 102 51 139/66 96
03/28/25 09:04 03/28/25 12:00 03/28/25 12:00 03/28/25 12:00 03/28/25 12:00
Physical Exam
Physical Exam
Constitutional: No Acute Distress
Cardiovascular: Regular Rate and S1/S2; Negative Murmur or Rub
Pulmonary: Clear and Symmetric; Negative Wheezes, Rales or Rhonchi
Gastrointestinal: Soft, Non Tender, Non Distended and Normal Bowel Sounds
Skin: Warm and Dry; Negative Rash or Jaundice
Wound: Other (right foot TMA site remains dehisced with eschar surrounding the wound, probe to bone ongoing, some scant purulence, no surrounding erythema or odor)
Lab / Diagnostic Study Results
03/28/25 09:28
03/28/25 09:28
Abs Immat Gran (auto) 0.1 10^3/uL (0-0.05) H 03/28/25 09:28
Absolute Neuts (auto) 7.8 10^3/uL (1.4-6.5) H 03/28/25 09:28
Absolute Lymphs (auto) 0.8 10^3/uL (1.2-3.4) L 03/28/25 09:28
Absolute Monos (auto) 0.3 10^3/uL (0.1-0.6) 03/28/25 09:28
Absolute Basos (auto) 0.0 10^3/uL (0-0.2) 03/28/25 09:28
Immature Gran % 1.3 % (0-0.5) H 03/28/25:28
Neutrophils % 77.1 % (42.2-75.2) H 03/28/25:
Lymphocytes % 7.7 % (20.5-51.1) L 03/28/25:
Monocytes % 3.2 % (1.7-9.3) 03/28/25:
Eosinophils % 10.4 % (0-6) H 03/28/25:
Basophils % 0.3 % (0-2) 03/28/25:
Lactic Acid 0.9 mmol/L (0.7-2.0) 03/28/25:
Microbiology Results
Micro:
03/28/25 10:34 Influenza Types A & B (MCKAY) - Final
Nasal Swab Negative for Influenza A & B, NAAT
Negative results must be combined with clinical observations
and patient history.
Nucleic Acid Amplification test (NAAT)performed on the
[employer] ID NOW platform.
03/28/25 10:34 Blood Culture - Pending
Blood/Venous
03/28/25 09:28 Influenza Types A & B (MCKAY) - Final
Nasal Swab Test repeatedly invalid.
Nucleic Acid Amplification test (NAAT)performed on the
[employer] ID NOW platform.
03/28/25 09:28 Blood Culture - Pending
Blood/Venous
Assessment / Plan
Community Acquired Pneumonia
- health care acquired pneumonia now a defunct term as no reliable increase in cause by MDROs and removed from the IDSA guidelines; hospital acquired pneumonia develops at least two days after hospitalization. Patient does have recent exposure to a
long course of broad spectrum antibiotics with symptoms beginning while on daptomycin and ertapenem
- reports cough is nonproductive, if cough becomes productive obtain sputum culture if able
- blood cultures x2 are in progress
- MRSA screen - if negative can stop vancomycin
- cefepime is reasonable for present
- already had azithromycin today, tomorrow would start doxycycline to limit QTc prolonging agents (he requires a 6 month course of fluconazole for candidal osteomyelitis)
- viral causes also on the differential
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
- ongoing probe to bone medially approximately over the 2nd and 3rd metatarsal shafts
- has completed 6 weeks of IV daptomycin and ertapenem, unless there is further resection to continue fluconazole 400 mg PO qday to 6 months
- monthly LFT check
- QTcB 400 today - acceptable
- PICC to be removed before discharge
- due for follow up with podiatry for possible debridement, could be completed outpatient or when acute respiratory failure resolved
--- NOTE | 2025-03-28 13:42 | CM ---
Chart reviewed
Pt transferred from [facility]
Originally lives in an apt with mother and a son
w/c bound
he was started on oxygen a couple of days ago
hx of [facility]
hx of [facility] and [facility]
DCP is to go back to [facility]
[phone]
CM will continue to follow up for dcp needs
[2025-03-28] MEDS: KCL 260 MEQ IV (14:33)
[2025-03-28 18:22] LABS: Glucose - Point of Care 78 mg/dl (70-99)
--- NOTE | 2025-03-28 19:57 | PHA.VAN.IN ---
Assessment
- Assessment
Renal Function: Appears similar to baseline
Concomitant Antimicrobials: cefepime, doxycycline
Plan
- Plan
Initial / Loading Dose: vanc 2000mg
Maintenance Regimen: dosing by level
Monitoring: random level 12/16 AM
Pharmacokinetics Vancomycin I
- -
Patient Age: 59
Patient Sex: Male
Vancomycin Day #: 1
Indication: Pulmonary/Respiratory
Requesting Provider: Dr. Burgos
Pertinent Antimicrobial Allergies:
no pertinent antimicrobial allergies
Height / Weight:
Height 5 ft 11 in
Actual Weight 92.3 kg
Pertinent Past Medical History: osteomyelitis
- Vital Signs / Lab Results
Temp Pulse Resp BP Pulse Ox
97.8 F 111 33 151/75 98
03/28/25 17:30 03/28/25 19:15 03/28/25 19:15 03/28/25 19:00 03/28/25 17:45
Lab Results - Hematology
03/28/25
09:28
WBC 10.2
Lab Results - Chemistry
03/28/25
09:28
BUN 17
Creatinine 1.0
Estimated Creat Clear 86
Albumin 2.8 L
03/28/25
09:29
Lactic Acid 0.9
Microbiology Results
03/28/25 10:34 Influenza Types A & B (MCKAY) - Final
Nasal Swab Negative for Influenza A & B, NAAT
Negative results must be combined with clinical observations
and patient history.
Nucleic Acid Amplification test (NAAT)performed on the
[employer] ID NOW platform.
03/28/25 09:28 Influenza Types A & B (MCKAY) - Final
Nasal Swab Test repeatedly invalid.
Nucleic Acid Amplification test (NAAT)performed on the
[employer] ID NOW platform.
[2025-03-28] MEDS: LR 1000 IV (20:35)
[2025-03-28] MEDS: CRESTOR 20 MG PO (20:38)
[2025-03-28] MEDS: STERILE WATER FOR INJECTION 10 ML IV (20:38)
[2025-03-28] MEDS: DIAMOX 500 MG PO (20:38)
[2025-03-28] MEDS: APRESOLINE 50 MG PO (20:39)
[2025-03-28] MEDS: VIBRAMYCIN 100 MG PO (20:39)
[2025-03-28] MEDS: ALPHAGAN 0.2% EYE DROPS 1 DROP LEFT EYE (20:40)
[2025-03-28] MEDS: DIFLUCAN 400 MG PO (20:40)
[2025-03-28] MEDS: HEPARIN 5000 UNITS SC (20:41)
[2025-03-28] MEDS: ATROPINE SULFATE 1% DROPS 1 DROP LEFT EYE (20:41)
[2025-03-28] MEDS: TIMOPTIC 0.5% OPHTHALMIC SOLUTION 1 DROP LEFT EYE (20:42)
[2025-03-28] MEDS: TRUSOPT 2% OPHTHALMIC SOLUTION 1 DROP LEFT EYE (20:42)
[2025-03-28] MEDS: NOVOLOG FLEXPEN-LOW RESISTANCE SC (20:45)
[2025-03-28 20:55] LABS: Glucose - Point of Care 76 mg/dl (70-99)
[2025-03-28] MEDS: NEURONTIN 300 MG PO (21:03)
[2025-03-28] MEDS: PRED FORTE 1% EYE DROPS 1 DROP LEFT EYE (21:03)
[2025-03-28] MEDS: APRESOLINE PO (22:59)
--- NOTE | 2025-03-28 23:55 | PTCARENOTE ---
Addendum entered by Fadia Rizzo RN 03/29/25 00:12:
Mouth care offered multiple times. Pt refusing until morning. Education given on potential Risks and benefits of mouth care, Pt verbalizing understanding.
Original Note:
Assumed care of Pt from ED RN. Pt arrived AAOx3 on 15L midflow RR40's spo2 99%. Pt able to be weaned down on midflow. Pt appearing to be resting well at this time respirations even, 8L spo2 97% RR continue in the 30's. Pt having a run of tachycardia
into the 150's, Pt asymptomatic at this time. [employer] made aware labs ordered.
[2025-03-29] VITALS (15 sets, daily range): BP systolic 116–146; BP diastolic 63–74; BMI 26.7
[2025-03-29 00:05] LABS: Blood Urea Nitrogen 18 mg/dl (9-20); Calcium 8.5 mg/dl (8.4-10.2); Carbon Dioxide 16 mmol/L (22-30); Chloride 106 mmol/L (98-107); Estimated Creatinine Clearance 95 ml/min; Glucose 74 mg/dl (70-99); Magnesium 2.0 mg/dl (1.6-2.3); Potassium 3.2 mmol/L (3.5-5.1); Sodium 134 mmol/L (135-145); eGFR > 60.00
[2025-03-29] MEDS: STERILE WATER FOR INJECTION 10 ML IV ×3 (04:44→20:40)
[2025-03-29] MEDS: MAXIPIME 2000 MG IV ×3 (04:44→20:40)
[2025-03-29] MEDS: KCL 40 MEQ PO (05:29)
[2025-03-29 05:52] LABS: Hematocrit 22.6 % (39.0-52.0); Hemoglobin 7.6 g/dL (13.0-18.0); Mean Corp Hgb Conc. 33.6 g/dL (33.0-37.0); Mean Corpuscular Volume 87.6 fL (80.0-94.0); Nucleated Red Blood Cells % 0 % (-); Platelet Count 567 10^3/uL (130-400); Red Cell Dist. Width 15.9 % (11.5-14.5)
[2025-03-29 06:17] LABS: Blood Urea Nitrogen 19 mg/dl (9-20); Calcium 8.7 mg/dl (8.4-10.2); Carbon Dioxide 15 mmol/L (22-30); Chloride 107 mmol/L (98-107); Estimated Creatinine Clearance 95 ml/min; Glucose 65 mg/dl (70-99); Magnesium 1.9 mg/dl (1.6-2.3); Potassium 3.3 mmol/L (3.5-5.1); Sodium 134 mmol/L (135-145); eGFR > 60.00
--- NOTE | 2025-03-29 06:23 | PTCARENOTE ---
Addendum entered by Fadia Rizzo RN 03/29/25 06:29:
Pt ordered 40 of K, taken without issue.
Original Note:
Pt now at 6L midflow. Pt appearing to be tolerating well. spo2 97% at this time rr continues to be in the 30's. Pt does not feel in distress. Pt able to fall back to sleep respirations even un labored at this time.
[2025-03-29] MEDS: NOVOLOG FLEXPEN-LOW RESISTANCE SC ×3 (07:00→17:18)
[2025-03-29 07:06] LABS: Glucose - Point of Care 77 mg/dl (70-99)
--- NOTE | 2025-03-29 07:37 | W.PN.HOSP.TC ---
Today's Communication/Plan
-
continue antibiotics + antifungal (on OVEN TENDER BAGELS course)
O2 support as needed
PT/OT/ST
start D5LR given hypoglycemia this morning, poor PO intake
start Protonix for GI PPx
monitor BP, resume home regimen if BP rises
appreciate consultants
Assessment / Plan
Assessment / Plan
Mr. Elio Chapman is a 59 yo man with hx IDDM, essential HTN, CKD, PAD s/p left AKA 07/06 and s/p right TMA 01/06 admitted 02/13-02/22 for acute osteomyelitis of right metatarsal amputation (s/p limflow procedure discharged 6 weeks
Vanc/Ertapenem/Fluconazole) admitted again 03/03-03/08 for lethargy, LINDY (s/p correa catheter, IV Vanc changed to IV Daptomycin) and completed antibiotics 03/26/25 then with worsening shortness of breath and hypoxia over the weekend found to have
multifocal pneumonia.
Triage VS: T 97.3, P 102, RR 30, BP 139/71, SpO2 81%
patient required high flow in the ER with increasing oxygen requirements
Multifocal Pneumonia
-Flu and Covid negative
-patient with new hypoxia and multifocal pneumonia with symptoms onset at end of prior antibiotic course (Dapto/Ertapenem).
-admitted to IMU
-will continue IV Vanc and obtain MRSA swab, DC Vanc if negative. IV Cefepime (wasn't covered for Pseudomonas prior).
-continue Doxycycline for atypical coverage
-follow up blood cultures, sputum culture
-Legionella, Strep Pneumo Ag testing
-continue OVEN TENDER BAGELS daily Fluconazole - per ID requires a 6 month course for candidal osteomyelitis
-ID and Pulmonary consulted
-LR @ 80
-ST Eval
Hypoxic Respiratory Failure secondary to above
-placed on high flow in the ER for drop in oxygen saturations while on 6L
-weaned down to 6L overnight
-continue O2 support as needed
-Mucinex BID, Acapella
-follow up Pulmonary recommendations
PAD s/p left AKA 07/06;
s/p right TMA 01/06
Osteomyelitis at right TMA amputation site s/p 6 weeks IV antibiotics completed 03/26
-continue OVEN TENDER BAGELS Aspirin, Prasugrel
-ID consult appreciated
-patient is due for follow up with podiatry for possible debridement, could be outpatient, need to wait until acute issues resolve
-wound care
-PT/OT
Hypoglycemia on AM labs
-65 this morning
-D5LR @ 60 -
Hypokalemia
-repleted this morning
CKD III with baseline creatinine 1.1
-LR
-monitor daily
Essential HTN
-OVEN TENDER BAGELS regimen:
Amlodipine 10mg PO QD with hold parameters
Clonidine 01.5mg PO QD
Hydralazine 50mg PO TID with hold parameters
Lisinopril 40mg PO QD - will order 1/2 dose for now
hold OVEN TENDER BAGELS HCTZ
-monitor BP's and adjust back to home regimen if needed
NIDDM
-A1c 5.7%
-hold OVEN TENDER BAGELS Farxiga given poor PO intake
-hold Metformin
-ISS low
Chronic anemia
-add on iron studies, likely some dilutional drop this morning
HLD - OVEN TENDER BAGELS Statin
Anxiety - OVEN TENDER BAGELS Zoloft
BPH - OVEN TENDER BAGELS Flomax
DVT PPx hep subQ
GI PPx - start Protonix as patient is on aspirin, prasugrel and hep subQ
FULL CODE
51 minutes spent on patient care
Anticipated Discharge: > 48 hours
Subjective/Interval History
-
Date of Service: March 29, 2025
continues to feel fatigued
not coughing up a lot of mucus
denies abdominal pain or nausea
he's not eating well
Objective Data
-
Labs:
Laboratory Results
03/28/25 03/29/25
23:31 04:58
WBC 12.5 H
Hgb 7.6 L
Hct 22.6 L
Plt Count 567 H
Sodium 134 L 134 L
Potassium 3.2 L 3.3 L
Chloride 106 107
Carbon Dioxide 16 L 15 L
BUN 18 19
Creatinine 0.9 0.9
Glucose 74 65 L
Calcium 8.5 8.7
Vital Signs:
Vital Signs
Temp Pulse Resp BP Pulse Ox
98.5 F 97 26 130/69 100
03/29/25 03:55 03/29/25 06:00 03/29/25 06:00 03/29/25 06:00 03/29/25 06:00
I&O
03/28/25 03/29/25 03/30/25
06:59 06:59 06:59
Intake Total 1800 / 1800
Output Total 3350 / 3350
Balance -1550 / -1550
Review of Systems
-
History Source: Patient
All other systems: Reviewed and negative
Physical Exam
-
General: No Apparent Distress and Other (appears fatigued )
HEENT: Normocephalic and Atraumatic; Negative Moist Mucous Membranes
Respiratory: Clear to Auscultation; Negative Wheezes
Cardiac: Regular Rhythm and S1/S2
GI: Soft, Nontender and Nondistended
Musculoskeletal: No Edema and Other (left AKA; right foot wrapped at amputation site )
Skin: Warm and Dry
Neuro: Awake, Alert and Oriented
Psych: Calm
Data Reviewed
-
Diagnostic Radiology: Report Reviewed by me
Labs: Labs Reviewed by me
[2025-03-29 08:03] LABS: Iron 27 ug/dl (49-181)
[2025-03-29 08:12] LABS: Total Iron Binding Capacity 118 ug/dl (261-462)
[2025-03-29] MEDS: D5LR 1000 IV ×2 (08:37→21:45)
[2025-03-29] MEDS: PRED FORTE 1% EYE DROPS 1 DROP LEFT EYE ×4 (08:37→21:34)
[2025-03-29 08:52] LABS: Glycohemoglobin (HgbA1c) 5.4 % (4.0-5.9)
--- NOTE | 2025-03-29 08:55 | W.PN.ID1 ---
Date of Service
Date of Service: March 29, 2025
Today's Communication
- MRSA screen - if negative can stop vancomycin
- continue cefepime
- continue doxycycline
Assessment / Plan
Community Acquired Pneumonia
Acute Respiratory Failure
Leukocytosis
- reports cough is nonproductive, if cough becomes productive obtain sputum culture if able
- blood cultures x2 are in progress
- MRSA screen - if negative can stop vancomycin
- continue cefepime
- continue doxycycline
- viral causes also on the differential
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
- ongoing probe to bone medially approximately over the 2nd and 3rd metatarsal shafts
- has completed 6 weeks of IV daptomycin and ertapenem, unless there is further resection to continue fluconazole 400 mg PO qday to 6 months
- monthly LFT check
- QTcB 400 today - acceptable
- PICC to be removed before discharge
- due for follow up with podiatry for possible debridement, could be completed outpatient or when acute respiratory failure resolved
Chief Complaint
-: Pneumonia and Other (osteomyelitis)
Subjective / Review of Systems
afebrile
bp stable
midflow down from 15 L to 6 L
breathing improving
complains of fatigue
Vital Signs / Physical Exam
Vital Signs
Vital Signs
Temp Pulse Resp BP Pulse Ox
98.4 F 97 26 130/69 100
03/29/25 07:55 03/29/25 06:00 03/29/25 06:00 03/29/25 06:00 03/29/25 06:00
Physical Exam
Constitutional: No Acute Distress and Chronically Ill
Cardiovascular: Regular Rate and S1/S2; Negative Murmur or Rub
Pulmonary: Clear, Symmetric and Non Labored; Negative Wheezes or Rales
Gastrointestinal: Soft, Non Tender, Non Distended and Normal Bowel Sounds
Skin: Warm and Dry; Negative Rash or Jaundice
Objective Data
Lab Data
Lab Results
03/29/25 04:58
03/29/25 04:58
Estimated Creat Clear 95 ml/min 03/29/25 04:58
Lactic Acid 0.9 mmol/L (0.7-2.0) 03/28/25 09:29
Total Bilirubin 0.6 mg/dl (0.2-1.3) 03/28/25 09:28
AST 84 U/L (17-59) H 03/28/25 09:28
ALT 79 U/L (0-50) H 03/28/25 09:28
Alkaline Phosphatase 174 U/L (38-126) H 03/28/25 09:28
Most recent labs reviewed.
Micro Results:
03/28/25 23:31 Legionella Urinary Antigen - Final
Urine Negative for Legionella pneumophila Serogroup 1 antigen.
A negative result does not rule out the possiblity of
Legionella infection due to other serogroups or species of
Legionella. Clinical correlation is recommended.
Streptococcus pneumoniae Antigen (M - Final
Negative for Streptococcus pneumoniae antigen.
A negative result does not exclude infection with
Streptococcus pneumoniae. Clinical correlation is
recommended.
03/28/25 23:31 MRSA Screen - Pending
Nose
03/28/25 10:34 Influenza Types A & B (MCKAY) - Final
Nasal Swab Negative for Influenza A & B, NAAT
Negative results must be combined with clinical observations
and patient history.
Nucleic Acid Amplification test (NAAT)performed on the
[employer] ID NOW platform.
03/28/25 10:34 Blood Culture - Pending
Blood/Venous
03/28/25 09:28 Influenza Types A & B (MCKAY) - Final
Nasal Swab Test repeatedly invalid.
Nucleic Acid Amplification test (NAAT)performed on the
[employer] ID NOW platform.
03/28/25 09:28 Blood Culture - Pending
Blood/Venous
[2025-03-29 09:11] LABS: Vitamin B12 873 pg/ml (239-931)
--- NOTE | 2025-03-29 09:16 | CON.PUL ---
Consultation
Consultation Request
Date/Time Consultation Requested: 03/29/25
Date/Time Consultation Performed: 03/29/25
Performing Provider: Adrien
Reason for Consultation: PNA
Medical History
-
History of Present Illness:
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
of breath and hypoxia over the weekend. He resides in a skilled nursing and was started on outpatient course of Levaquin. He had recently completed antibiotic course for osteomyelitis in February. He was notably hypoxemic at the skilled nursing, placed
on O2. He does note intermittent coughing without sputum. Chest x-ray demonstrated bilateral infiltrates. Due to his need for high flow and hypoxemia, he is admitted to IMU.
Denies any prior known history of lung disease, reports that he is a non-smoker. Denies any family history of lung disease.
Past Medical History
Past Medical History: Other (see list below)
Social History
Tobacco: Non-smoker
Alcohol: None
Drug: None
Allergies / Home Medications
Allergies
Allergy/AdvReac Type Severity Reaction Status Date / Time
No Known Allergies Allergy Verified 03/28/25 09:09
Home Medications
�Medication �Instructions �Recorded �Confirmed �Last Taken �Type
clonidine HCl 0.1 mg tablet 0.1 mg PO DAILY Blood pressure 30 09/15/24 03/28/25 12/03/24 Rx
days #30 tabs
dapagliflozin propanediol 10 mg 10 mg PO DAILY Diabetes 30 days 09/15/24 03/28/25 12/03/24 Rx
tablet #30 tabs
amlodipine 10 mg tablet (Norvasc) 10 mg PO DAILY Blood Pressure 12/03/24 03/28/25 12/03/24 History
metformin 750 mg tablet,extended 750 mg PO DAILY Diabetes 12/03/24 03/28/25 12/03/24 History
release 24 hr
atropine 1 % eye drops 1 drp LEFT EYE BID Eye Condition 02/13/25 03/28/25 Unknown History
brimonidine 0.2 % eye drops 1 drp LEFT EYE BID Eye Condition 02/13/25 03/28/25 Unknown History
collagenase clostridium histo. 250 1 applic topical DAILY PRN 02/13/25 03/28/25 Unknown History
unit/gram topical ointment (Santyl) infection site
dorzolamide 22.3 mg-timolol 6.8 1 drp LEFT EYE BID Eye Condition 02/13/25 03/28/25 Unknown History
mg/mL eye drops
ferrous fumarate 324 mg (106 mg 324 mg PO Q48H Supplement 02/13/25 03/28/25 Unknown History
iron) tablet
hydralazine 50 mg tablet 50 mg PO TID Blood Pressure 02/13/25 03/28/25 Unknown History
prednisolone acetate 1 % eye 1 drp LEFT EYE QID Eye Condition 02/13/25 03/28/25 Unknown History
drops,suspension
sumatriptan succinate 25 mg tablet 25 mg PO Q2HPRN PRN headache 02/13/25 03/28/25 Unknown History
aspirin 81 mg chewable tablet 81 mg PO DAILY Heart 02/14/25 03/28/25 Unknown History
Disease/Condition
fluconazole 200 mg tablet 400 mg (2 x 200 mg) PO DAILY #30 02/21/25 03/28/25 Unknown Rx
tabs
gabapentin 300 mg capsule 300 mg PO TID #30 caps 02/21/25 03/28/25 Unknown Rx
prasugrel HCl 10 mg tablet 10 mg PO DAILY #30 tabs 02/21/25 03/28/25 Unknown Rx
tamsulosin 0.4 mg capsule 0.8 mg (2 x 0.4 mg) PO DAILY 03/08/25 03/28/25 Unknown Rx
Urinary retention #30 caps
acetaminophen 325 mg tablet 650 mg PO Q4H PRN pain/fever 03/28/25 03/28/25 Unknown History
acetazolamide 250 mg tablet 500 mg PO BID 03/28/25 03/28/25 Unknown History
bisacodyl 10 mg rectal suppository 10 mg MO DAILY PRN if milk of 03/28/25 03/28/25 Unknown History
magnesia is ineffective after 24
hours
guaifenesin 100 mg/5 mL oral liquid 200 mg PO Q4H PRN cough 03/28/25 03/28/25 Unknown History
hydrochlorothiazide 25 mg tablet 25 mg PO DAILY 03/28/25 03/28/25 Unknown History
ipratropium 0.5 mg-albuterol 3 mg 3 ml inhalation Q4H PRN sob or 03/28/25 03/28/25 Unknown History
(2.5 mg base)/3 mL nebulization wheezing
soln
levofloxacin 750 mg tablet 750 mg PO DAILY 03/28/25 03/28/25 Unknown History
lisinopril 40 mg tablet 40 mg PO DAILY 03/28/25 03/28/25 Unknown History
magnesium hydroxide 400 mg/5 mL 30 ml PO DAILY PRN if no bowel 03/28/25 03/28/25 Unknown History
oral suspension (Milk of Magnesia) movement in 3 days
melatonin 3 mg tablet 3 mg PO HS PRN sleep 03/28/25 03/28/25 Unknown History
oxycodone 10 mg tablet 10 mg PO Q4H PRN severe pain 03/28/25 03/28/25 Unknown History
rosuvastatin 20 mg tablet 20 mg PO QPM 03/28/25 03/28/25 Unknown History
sertraline 25 mg tablet 25 mg PO DAILY 03/28/25 03/28/25 Unknown History
sodium phosphates 19 gram-7 118 ml MO DAILYPRN PRN if dulcolax 03/28/25 03/28/25 Unknown History
gram/118 mL enema (Fleet Enema) is ineffective after 24 hrs
Review of Systems
-
History Source: Patient
All other systems: Negative unless noted
Vitals / Labs / Diagnostic Testing
Vital Signs
Temp Pulse Resp BP Pulse Ox
98.4 F 97 26 130/69 100
03/29/25 07:55 03/29/25 06:00 03/29/25 06:00 03/29/25 06:00 03/29/25 06:00
Lab Data
03/29/25 04:58
03/29/25 04:58
Microbiology
03/28/25 23:31 Urine Legionella Urinary Antigen - Final
Negative for Legionella pneumophila Serogroup 1 antigen.
A negative result does not rule out the possiblity of
Legionella infection due to other serogroups or species of
Legionella. Clinical correlation is recommended.
03/28/25 23:31 Urine Streptococcus pneumoniae Antigen (M - Final
Negative for Streptococcus pneumoniae antigen.
A negative result does not exclude infection with
Streptococcus pneumoniae. Clinical correlation is
recommended.
03/28/25 10:34 Nasal Swab Influenza Types A & B ([facility]AY) - Final
Negative for Influenza A & B, NAAT
Negative results must be combined with clinical observations
and patient history.
Nucleic Acid Amplification test (NAAT)performed on the
[employer] NOW platform.
03/28/25 09:28 Nasal Swab Influenza Types A & B ([facility]CKAY) - Final
Test repeatedly invalid.
Nucleic Acid Amplification test (NAAT)performed on the
[employer] ID NOW platform.
Diagnostic Testing:
Physical Exam
-
HEENT: Normocephalic, Anicteric and Moist Mucous Membranes
Cardiovascular: S1/S2, Regular Rhythm and Other (L AKA, R toe amp with gangrenous areas)
Respiratory: Rales and Accessory Resp Muscle Use (mild)
GI: Soft and Non Distended
Neurology: Awake, Alert and Other (lethargic but arousable, answering questions/following commands)
Skin: Warm and Dry
General: Comfortable and Other (NAD)
Assessment
-
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
of breath and hypoxia over the weekend. He resides in a skilled nursing and was started on outpatient course of Levaquin. He had recently completed antibiotic course for osteomyelitis in February. He was notably hypoxemic at the skilled nursing, placed
on O2. He does note intermittent coughing without sputum. Chest x-ray demonstrated bilateral infiltrates. Due to his need for high flow and hypoxemia, he is admitted to IMU. We are consulted for evaluation.
Acute hypoxic respiratory failure
Bilateral pneumonia suspected
Shortness of breath, cough
Leukocytosis
Metabolic acidosis
Hypoglycemia
Acute on chronic anemia
Hyponatremia
Hypokalemia
Gangrenous right foot
Conditions present prior to admission
HTN
Type 2 diabetes
Hyperlipidemia
Cellulitis
Acute kidney failure
PVD
Left lower extremity arteriogram (Dr. De La Garza) 07/01/2024
L BKA (Dr. De La Garza) 09/03/2024
Toe amp right foot 11/2024
DH Adm: Gangrene of the left third toe and tip of the left second toe (06/28-07/06) 06/2024
DH Adm: R foot Osteo, LINDY w/p 6 weeks IV erta, vanc, flucon (03/03-03/08/25)
Plan
Hypoxemia noted on arrival, currently on 10L
No oxygen was needed at baseline
Wean as tolerated, satting 90-91%
Can transition to HFNC as needed
Obtain ABG
Prior history of lung disease is NOT noted--
Denies any prior known history of lung disease, reports that he is a non-smoker.
Denies any family history of lung disease.
Prior chest imaging normal
Suspect patient has multifocal pneumonia, BNP negative
CXR/CT obtained indicating bilateral infiltrates
Other imaging reviewed, this is new compared to prior
We will also obtain dedicated CT to evaluate extent of lung disease
Agree with treatment with IV antibiotics
Blood cultures are sent
Obtain sputum culture if needed
He has other concerning signs of sepsis including metabolic acidosis, hypoglycemia
Creatinine at baseline, has had prior history of CKD with LINDY
Monitor urine output
He has had a history of bacteremia, no prior echo for review
Obtain baseline echo
Extensive records from prior hospitalizations reviewed
He is well-known to vascular
May need additional consult for active gangrene on the right leg and recent admission for osteo
We will follow
Diagnostic Data
Chest X-Ray: 03/28/25-Findings suggesting moderate bilateral pneumonia. New
03/03/25-No acute disease of the chest.
CT Scan:
Echo: pending
PFT's:
Reports and relevant images were personally reviewed.
Total time spent on this consultation __75__ minutes which includes review of history, physical exam, medications, laboratory data, personal review of imaging, extensive review of outpatient records, discussion with care team and respiratory therapy.
[2025-03-29] MEDS: CATAPRES 0.1 MG PO (09:18)
[2025-03-29] MEDS: APRESOLINE 50 MG PO ×3 (09:18→21:35)
[2025-03-29] MEDS: DIAMOX 500 MG PO ×2 (09:19→20:40)
[2025-03-29] MEDS: MUCINEX 600 MG PO ×2 (09:20→20:40)
[2025-03-29] MEDS: HEPARIN 5000 UNITS SC ×2 (09:20→20:41)
[2025-03-29] MEDS: EFFIENT 10 MG PO (09:20)
[2025-03-29] MEDS: FLOMAX 0.8 MG PO (09:20)
[2025-03-29] MEDS: LOW STRENGTH ASPIRIN 81 MG PO (09:20)
[2025-03-29] MEDS: NORVASC 10 MG PO (09:21)
[2025-03-29] MEDS: PROTONIX 40 MG PO (09:21)
[2025-03-29] MEDS: NEURONTIN 300 MG PO ×3 (09:21→21:34)
[2025-03-29] MEDS: ZESTRIL 20 MG PO (09:21)
[2025-03-29] MEDS: VIBRAMYCIN 100 MG PO ×2 (09:21→20:41)
[2025-03-29] MEDS: VISBIOME 1 CAP PO (09:21)
[2025-03-29] MEDS: ATROPINE SULFATE 1% DROPS 1 DROP LEFT EYE ×2 (09:22→20:39)
[2025-03-29] MEDS: ZOLOFT 25 MG PO (09:22)
[2025-03-29] MEDS: TIMOPTIC 0.5% OPHTHALMIC SOLUTION 1 DROP LEFT EYE ×2 (09:22→20:39)
[2025-03-29] MEDS: TRUSOPT 2% OPHTHALMIC SOLUTION 1 DROP LEFT EYE ×2 (09:22→20:39)
[2025-03-29] MEDS: ALPHAGAN 0.2% EYE DROPS 1 DROP LEFT EYE ×2 (09:23→20:39)
[2025-03-29 09:25] LABS: Glucose - Point of Care 101 mg/dl (70-99)
[2025-03-29] MEDS: DIFLUCAN 400 MG PO (09:41)
--- NOTE | 2025-03-29 10:22 | PHA.VAN.FU ---
Vancomycin Assessment / Plan
- Assessment
Renal Function: Stable
WBC's are: Trending Up
In the past 24 hrs, patient has been: Afebrile
Concomitant Antimicrobials: cefepime, doxycycline, fluconazole
Previous Dosing Experience
Date of Regimen: November - December 2024
Patient's SCR is: Similar compared to previous dosing experience
Patient's weight is: Decreased compared to previous dosing experience (patient weighs about 15kg less)
Patient received multiple dosing regimens during prior admission:
12/14/24
Vanc 1250mg Q12H provided AUC 583, Cmax 29.4, Cmin 19.8, t1/2 18.4 H after 4th maintenance dose
BUN = 15, SCR = 1, weight = 103.5 kg
Regimen adjusted to Vanc 1750mg Q24H predicting AUC 423, Peak 25.8, Trough 11.3 based on patient-specific PK
12/18/24 Repeat levels obtained on Vanc 1750mg Q24H regimen providing AUC 505, Cmax 29.9, Cmin 14, half-life 20.2H
Additional accumulation noted from 12/14/24 calculations (not unexpected with prolonged half-life)
Half-life relatively stable
BUN = 17, SCR = 0.9
12/20/24 Regimen reduced to Vanc 1500mg Q24H to provide lowest effective dosing - predicted AUC 444, Peak 26.5, Trough 12.2 based on patient-specific PK; no levels obtained on this regimen
Patient re-admitted in Feb 2025 and received vancomycin; however, patient was in [facility] during admission and did not follow prior patient-specific PK. At the time, patient's half-life was ~60H with SCR 3.1 --> 1.3
- Assessment - Therapeutic Drug Monitoring
Random Level: 11.9 - drawn ~17H after 2g loading dose
- Dosing Plan
Adjust Regimen to: Vanc 1500mg Q24H based on prior experience from Nov-Dec 2024
Patient with appropriate clearance post load and renal function appears similar to baseline
Patient previously has demonstrated that he does not follow population PK
- Monitoring Plan
No level(s) ordered at this time: consider levels in next few days
- Follow Up
Pharmacy will continue to follow.
Vancomycin Follow UP
- -
Patient Age: 59
Patient Sex: Male
Vancomycin Day #: 2
Indication: Pulmonary/Respiratory
Requesting Provider: Dr. Burgos
Pertinent Antimicrobial Allergies:
no pertinent antimicrobial allergies
Height / Weight:
Height 5 ft 11 in
Actual Weight 86.8 kg
Pertinent Past Medical History: DM 2, PAD, L. AKA, R. TMA
- Vital Signs / Lab Results
Temp Pulse Resp BP Pulse Ox
98.4 F 104 26 137/71 100
03/29/25 07:55 03/29/25 09:21 03/29/25 06:00 03/29/25 09:21 03/29/25 06:00
Lab Results - Hematology
03/28/25 03/29/25
09:28 04:58
WBC 10.2 12.5 H
Lab Results - Chemistry
03/28/25 03/28/25 03/29/25
09:28 23:31 04:58
BUN 17 18 19
Creatinine 1.0 0.9 0.9
Estimated Creat Clear 86 95 95
Albumin 2.8 L
03/28/25
09:29
Lactic Acid 0.9
Microbiology Results
03/28/25 09:28 Blood Culture - Preliminary
Blood/Venous No Growth in 24 hours- Final report to follow
03/28/25 23:31 Legionella Urinary Antigen - Final
Urine Negative for Legionella pneumophila Serogroup 1 antigen.
A negative result does not rule out the possiblity of
Legionella infection due to other serogroups or species of
Legionella. Clinical correlation is recommended.
Streptococcus pneumoniae Antigen (M - Final
Negative for Streptococcus pneumoniae antigen.
A negative result does not exclude infection with
Streptococcus pneumoniae. Clinical correlation is
recommended.
03/28/25 10:34 Influenza Types A & B ([facility]) - Final
Nasal Swab Negative for Influenza A & B, NAAT
Negative results must be combined with clinical observations
and patient history.
Nucleic Acid Amplification test (NAAT)performed on the
[employer] NOW platform.
03/28/25 09:28 Influenza Types A & B ([facility]) - Final
Nasal Swab Test repeatedly invalid.
Nucleic Acid Amplification test (NAAT)performed on the
[employer] ID NOW platform.
Therapeutic Drug Monitoring
Random Vancomycin 11.9 ug/ml 03/29/25 04:58
--- NOTE | 2025-03-29 11:19 | WOUNDNOTE ---
R FOOT MEDIAL VIEW
--- NOTE | 2025-03-29 11:19 | WOUNDNOTE ---
R FOOT LATERAL VIEW
--- NOTE | 2025-03-29 11:25 | WOUNDNOTE ---
WON RN note: Patient admitted for acute kidney injury, chronic osteomyelitis of R foot.
See H&P for complete history.
PMH: Obesity, IDDM,HTN,ORIF pelvic fracture, L BKA 09/04/24, R TM-amp (chronic osteomyelitis of R foot.) R heel PI.
Wound Location and type/assessment: Patient known to service, last seen 03/04/25. Compared to last picture on 02/21/25 of R TMA surgical site, remains the same. Black necrotic mostly with soft center along incision line, probes to bone. No odor,
edema or warmth to foot. R heel with same dry brown eschar, medial edge open with pink base. suspect ulcer is a stage 3 PI underneath. Patient is using a fiber filled offloading heel boot. L BKA site with intact dry scab. Patient confirmed he is
following with Dr. Heath. Reviewed I&D note, to follow with Podiatry for debridement once stable as OP, or when respiratory failure resolved. Turned with assist of nurse Kathy, patient is very weak at this time. Sacrum and buttocks with
scattered open areas, some healing stage 2 PI and some appear to be deeper, stage 3 PI with landeros base, worse compared to last seen. MASD surrounding, Calazime in use.
Appetite: TBD. Encourage protein in diet to help with wound healing.
Pressure redistribution devices in place: On [facility] air bed. Nurse made aware if patient transferred to floor to keep on air mattress, can be a [facility] care Air mattress. R heel offloaded with TruVue lite fiber filled boot.
Plan: R TMA and heel applied adaptic, abd pad and mary lou. L BKA applied silicone foam. Sacrum and buttocks open ulcers applied cut pieces of silver alginate followed by sacral silicone bordered foam. Repositioned patient to L semi side lying position
with use of patient's own foam turning wedge. Maintain turning schedule.
Will confirm orders with hospitalist, updated nurse and care plan.
Note to case management of equipment requested for discharge: Air mattress and Roho Cushion for chair.
Recommend follow up with Tile Layer Drainage.
[2025-03-29 11:27] LABS: Glucose - Point of Care 114 mg/dl (70-99)
[2025-03-29 13:00] LABS: B.E. -7.9 mmol/L; HCO3 17.6 mmol/L (21-28); O2 Saturation % 88.5 % (94-98); PCO2 35 mmHg (35-48)
[2025-03-29 13:03] LABS: PO2 59 mmHg (83-108)
--- NOTE | 2025-03-29 15:36 | PTCARENOTE ---
Patient awake and alert in beginning of shift conversing with RN. [address] at 6 liters midlflow sating in mid 90s. [place] cath in place and draining clear yellow urine with specks of pink. Turned every two hours. Wound care provided by Wound
nurse. Patient became increasing drowsy with 02 sats decreasing to mid to high 80s on 6 liters. 02 increased to 8 liters with no improvement. 02 increased to 10 liters midflow with sats in low 90s. MD aware. CT and Labs ordered. CT showing
bilateral PNA. 02 increased to 15 liters midflow with sats sustaining in high 90s. Patient remains lethargic but arousable. Call walker with in reach. Able to make needs known.
--- NOTE | 2025-03-29 15:47 | PTOTSP ---
Dysphagia Evaluation
Patient has acute (multifocal pneumonia, tachypnea) dysphagia risk factors and reported a baseline diet of mechanical soft solids due to prolonged chewing with solids in the past few weeks.
1. IDDSI 6 soft/bite sized diet recommended this admission. Patient requested to continue regular diet picking softer/moister foods.
2. Medications as best tolerated
3. Assistance with set up and feeding as needed
4. Strategies: upright to 90 degrees, single sips/bites, slow rate, breaks of breathing
5. Oral care 3x daily
6. Dysphagia f/u at the acute care level to instruct in compensations and determine if further instrumental swallow testing warranted
--- NOTE | 2025-03-29 16:32 | CM ---
F/U: KIRT Cheryl spoke to son who was not in a place to talk, but shared that he [facility] his [facility] so the plan is to talk tomorrow morning about this. PLAN: SNF to LTC?
[2025-03-29] MEDS: DECADRON 4 MG IV ×2 (17:13→21:34)
[2025-03-29] MEDS: CRESTOR 20 MG PO (17:14)
[2025-03-29 17:29] LABS: Glucose - Point of Care 151 mg/dl (70-99)
[2025-03-29 21:20] LABS: Glucose - Point of Care 170 mg/dl (70-99)
[2025-03-30] VITALS (15 sets, daily range): BP systolic 110–139; BP diastolic 60–78; PULSE 94–96; O2SAT 96–100; BMI 27.0
[2025-03-30 02:52] LABS: Glucose - Point of Care 204 mg/dl (70-99)
[2025-03-30] MEDS: DECADRON 4 MG IV ×3 (05:16→20:17)
[2025-03-30] MEDS: STERILE WATER FOR INJECTION 10 ML IV ×3 (05:16→20:17)
[2025-03-30] MEDS: MAXIPIME 2000 MG IV ×3 (05:17→20:17)
--- NOTE | 2025-03-30 05:33 | PTCARENOTE ---
Addendum entered by Fadia Rizzo RN 03/30/25 05:41:
Pt remains good with Q2 turning with blue foam wedge brought from his home.
Original Note:
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 Pt AAOx2-3 at times. Pt able to make needs known. Pt spo2 100% on 8L, rr even un labored in 30's. Pt had no complaints over night. Pt offered suppository to help have bm. Pt
refusing at this time saying 'does not feel like I need to go yet' Education given, Pt appears to be understanding, conversation was had about poor appetite and not eating well last couple of days. Emotional support given. Assessment care and
vitals as charted. Call walker within reach. bed in lowest position.
[2025-03-30 05:50] LABS: Hematocrit 21.7 % (39.0-52.0); Hemoglobin 7.4 g/dL (13.0-18.0); Mean Corp Hgb Conc. 34.1 g/dL (33.0-37.0); Mean Corpuscular Volume 86.5 fL (80.0-94.0); Platelet Count 608 10^3/uL (130-400); Red Cell Dist. Width 16.2 % (11.5-14.5)
[2025-03-30 06:09] LABS: Blood Urea Nitrogen 22 mg/dl (9-20); Calcium 8.8 mg/dl (8.4-10.2); Carbon Dioxide 17 mmol/L (22-30); Chloride 109 mmol/L (98-107); Estimated Creatinine Clearance 95 ml/min; Glucose 194 mg/dl (70-99); Potassium 3.8 mmol/L (3.5-5.1); Sodium 133 mmol/L (135-145); eGFR > 60.00
[2025-03-30 07:54] LABS: Nucleated Red Blood Cells % 0 % (-)
--- NOTE | 2025-03-30 09:05 | W.PN.PUL3 ---
Today's Communication / Plan
-
CT reviewed, IV steroids added 03/29
Improving today, now weaned to 5L, satting 100%
Repeat CXR in AM, continue IV abx
ECHO pending
Continue current care
Assessment
-
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
of breath and hypoxia over the weekend. He resides in a assisted and was started on outpatient course of Levaquin. He had recently completed antibiotic course for osteomyelitis in February. He was notably hypoxemic at the assisted, placed
on O2. He does note intermittent coughing without sputum. Chest x-ray demonstrated bilateral infiltrates. Due to his need for high flow and hypoxemia, he is admitted to IMU. We are consulted for evaluation.
Acute hypoxic respiratory failure
Bilateral pneumonia suspected
Shortness of breath, cough
Leukocytosis
Metabolic acidosis
Hypoglycemia
Acute on chronic anemia
Hyponatremia
Hypokalemia
Gangrenous right foot
Conditions present prior to admission
HTN
Type 2 diabetes
Hyperlipidemia
Cellulitis
Acute kidney failure
PVD
Left lower extremity arteriogram (Dr. De La Garza) 07/01/2024
L BKA (Dr. De La Garza) 09/03/2024
Toe amp right foot 11/2024
DH Adm: Gangrene of the left third toe and tip of the left second toe (06/28-07/06) 06/2024
DH Adm: R foot Osteo, LINDY w/p 6 weeks IV erta, vanc, flucon (03/03-03/08/25)
Plan
Hypoxemia noted on arrival, currently on 10L--reduced to 5L--improving
ABG-7.31/35//17 with severe AA gradient (meeting for ARDS criteria)
No oxygen was needed at baseline
Wean as tolerated, satting 100%
Can transition to HFNC as needed
Prior history of lung disease is NOT noted--
Denies any prior known history of lung disease, reports that he is a non-smoker.
Denies any family history of lung disease.
Prior chest imaging normal
Suspect patient has multifocal pneumonia, BNP negative
CXR/CT obtained indicating bilateral infiltrates
Other imaging reviewed, this is new compared to prior
We will also obtain dedicated CT to evaluate extent of lung disease--reviewed/severe and bilateral
IV steroids added
Repeat imaging in next 24 hours
Agree with treatment with IV antibiotics
Blood cultures are sent
Obtain sputum culture if needed
He has other concerning signs of sepsis including metabolic acidosis, hypoglycemia
Creatinine at baseline, has had prior history of CKD with LINDY
Monitor urine output
He has had a history of bacteremia, no prior echo for review
Obtain baseline echo
Extensive records from prior hospitalizations reviewed
He is well-known to vascular
May need additional consult for active gangrene on the right leg and recent admission for osteo
Diagnostic Data
Chest X-Ray: 03/28/25-Findings suggesting moderate bilateral pneumonia. New
03/03/25-No acute disease of the chest.
CT Scan: CHEST 03/29/25-Bilateral pneumonia. Small bilateral pleural effusions.
Echo: pending
PFT's:
Reports and relevant images were personally reviewed.
Total time spent on this consultation __51__ minutes which includes review of history, physical exam, medications, laboratory data, personal review of imaging, extensive review of outpatient records, discussion with care team and respiratory therapy.
Subjective Data
-
Date of Service:
Date of Service: March 30, 2025
Chief Complaint: Pulmonary Follow Up
Subjective:
Better this AM, not on 5L satting 100%
He appears less dyspneic
Objective Data
Data Reviewed
Vital Signs / I&O / Oxygen:
Vital Signs
Temp Pulse Resp BP Pulse Ox
97.3 F 93 29 110/64 100
03/30/25 03:32 03/30/25 06:00 03/30/25 06:00 03/30/25 06:00 03/30/25 06:00
Intake and Output
03/29/25 03/30/25 03/31/25
06:59 06:59 06:59
Intake Total 1800 / 1800 1200 / 1200
Output Total 3350 / 3350 1050 / 1050
Balance -1550 / -1550 150 / 150
SaO2 100
Nasal Cannula flow liters per 6
minute
Physical Exam
General: Comfortable and Other (NAD)
HEENT: Normocephalic, Anicteric and Moist Mucous Membranes
Cardiovascular: S1-S2, Regular Rhythm and Other (L AKA, R toe amp)
Respiratory: Crackles (improving) and Non-Labored Respirations
GI: Soft, Non Distended and Non Tender
Neurology: Awake, Alert, Oriented and No Motor Deficits
Skin: Warm and Dry
Labs/Micro/Reports
Lab Data
03/30/25 05:26
03/30/25 05:26
Laboratory Results
03/29/25
12:39
pH 7.31 L
pCO2 35
pO2 59 L*
HCO3 17.6 L
O2 Delivery Level
Microbiology
03/28/25 23:31 Nose MRSA Screen - Final
No Methicillin Resistant Staphylococcus aureus isolated.
03/28/25 10:34 Blood/Venous Blood Culture - Preliminary
No Growth in 24 hours- Final report to follow
03/28/25 09:28 Blood/Venous Blood Culture - Preliminary
No Growth in 24 hours- Final report to follow
03/28/25 23:31 Urine Legionella Urinary Antigen - Final
Negative for Legionella pneumophila Serogroup 1 antigen.
A negative result does not rule out the possiblity of
Legionella infection due to other serogroups or species of
Legionella. Clinical correlation is recommended.
03/28/25 23:31 Urine Streptococcus pneumoniae Antigen (M - Final
Negative for Streptococcus pneumoniae antigen.
A negative result does not exclude infection with
Streptococcus pneumoniae. Clinical correlation is
recommended.
03/28/25 10:34 Nasal Swab Influenza Types A & B (MCKAY) - Final
Negative for Influenza A & B, NAAT
Negative results must be combined with clinical observations
and patient history.
Nucleic Acid Amplification test (NAAT)performed on the
[employer] NOW platform.
03/28/25 09:28 Nasal Swab Influenza Types A & B (MCKAY) - Final
Test repeatedly invalid.
Nucleic Acid Amplification test (NAAT)performed on the
[employer] NOW platform.
[2025-03-30 09:08] LABS: Glucose - Point of Care 196 mg/dl (70-99)
--- NOTE | 2025-03-30 09:53 | W.PN.ID1 ---
Date of Service
Date of Service: March 30, 2025
Today's Communication
- MRSA screen negative stop vancomycin
- continue cefepime day 3
- continue doxycycline day 3 of atypical coverage
- due for follow up with podiatry Dr Heath for possible debridement, could be completed outpatient or when acute respiratory failure resolved
Assessment / Plan
Community Acquired Pneumonia
Acute Respiratory Failure
Leukocytosis
- reports cough is nonproductive, if cough becomes productive obtain sputum culture if able
- blood cultures x2 are in progress NGTD
- MRSA screen negative stop vancomycin
- continue cefepime day 3
- continue doxycycline day 3 of atypical coverage
- viral causes also on the differential
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
- ongoing probe to bone medially approximately over the 2nd and 3rd metatarsal shafts
- has completed 6 weeks of IV daptomycin and ertapenem, unless there is further resection to continue fluconazole 400 mg PO qday to 6 months
- monthly LFT check
- QTcB 400 - acceptable
- PICC to be removed before discharge
- due for follow up with podiatry for possible debridement, could be completed outpatient or when acute respiratory failure resolved
Chief Complaint
-: Pneumonia and Other (osteomyelitis)
Subjective / Review of Systems
afebrile
bp stable
O2 at 8L
more alert, eating breakfast
RN reports she hasnt heard coughing today, patient does say cough ongoing
Vital Signs / Physical Exam
Vital Signs
Vital Signs
Temp Pulse Resp BP Pulse Ox
97.3 F 93 29 110/64 100
03/30/25 03:32 03/30/25 06:00 03/30/25 06:00 03/30/25 06:00 03/30/25 06:00
Physical Exam
Constitutional: No Acute Distress and Chronically Ill
Cardiovascular: Regular Rate and S1/S2; Negative Murmur or Rub
Pulmonary: Clear and Symmetric; Negative Wheezes or Rales
Gastrointestinal: Soft, Non Tender, Non Distended and Normal Bowel Sounds
Skin: Warm and Dry; Negative Rash or Jaundice
Wound: Other (deferred dressing take down today)
Objective Data
Lab Data
Lab Results
03/30/25 05:26
03/30/25 05:26
Estimated Creat Clear 95 ml/min 03/30/25 05:26
Lactic Acid 0.9 mmol/L (0.7-2.0) 03/28/25 09:29
Total Bilirubin 0.6 mg/dl (0.2-1.3) 03/28/25 09:28
AST 84 U/L (17-59) H 03/28/25 09:28
ALT 79 U/L (0-50) H 03/28/25 09:28
Alkaline Phosphatase 174 U/L (38-126) H 03/28/25 09:28
Most recent labs reviewed.
Micro Results:
03/28/25 09:28 Blood Culture - Preliminary
Blood/Venous No Growth in 48 hours- Final report to follow
03/28/25 23:31 MRSA Screen - Final
Nose No Methicillin Resistant Staphylococcus aureus isolated.
03/28/25 10:34 Blood Culture - Preliminary
Blood/Venous No Growth in 24 hours- Final report to follow
03/28/25 23:31 Legionella Urinary Antigen - Final
Urine Negative for Legionella pneumophila Serogroup 1 antigen.
A negative result does not rule out the possiblity of
Legionella infection due to other serogroups or species of
Legionella. Clinical correlation is recommended.
Streptococcus pneumoniae Antigen (M - Final
Negative for Streptococcus pneumoniae antigen.
A negative result does not exclude infection with
Streptococcus pneumoniae. Clinical correlation is
recommended.
03/28/25 10:34 Influenza Types A & B ([facility]) - Final
Nasal Swab Negative for Influenza A & B, NAAT
Negative results must be combined with clinical observations
and patient history.
Nucleic Acid Amplification test (NAAT)performed on the
[employer] platform.
03/28/25 09:28 Influenza Types A & B ([facility]) - Final
Nasal Swab Test repeatedly invalid.
Nucleic Acid Amplification test (NAAT)performed on the
[employer] NOW platform.
[2025-03-30] MEDS: NOVOLOG FLEXPEN-LOW RESISTANCE 1 UNITS SC (10:00)
[2025-03-30] MEDS: ZESTRIL 20 MG PO (10:03)
[2025-03-30] MEDS: NORVASC 10 MG PO (10:03)
[2025-03-30] MEDS: ZOLOFT 25 MG PO (10:03)
[2025-03-30] MEDS: VIBRAMYCIN 100 MG PO ×2 (10:03→20:17)
[2025-03-30] MEDS: MUCINEX 600 MG PO ×2 (10:04→20:17)
[2025-03-30] MEDS: DIFLUCAN 400 MG PO (10:04)
[2025-03-30] MEDS: APRESOLINE 50 MG PO ×3 (10:04→22:07)
[2025-03-30] MEDS: EFFIENT 10 MG PO (10:04)
[2025-03-30] MEDS: PROTONIX 40 MG PO (10:04)
[2025-03-30] MEDS: LOW STRENGTH ASPIRIN 81 MG PO (10:05)
[2025-03-30] MEDS: FLOMAX 0.8 MG PO (10:05)
[2025-03-30] MEDS: DIAMOX 500 MG PO ×2 (10:05→20:17)
[2025-03-30] MEDS: CATAPRES 0.1 MG PO (10:05)
[2025-03-30] MEDS: VISBIOME 1 CAP PO (10:06)
[2025-03-30] MEDS: HEPARIN 5000 UNITS SC ×2 (10:06→20:17)
[2025-03-30] MEDS: NEURONTIN 300 MG PO ×3 (10:06→22:07)
[2025-03-30] MEDS: ATROPINE SULFATE 1% DROPS 1 DROP LEFT EYE ×2 (10:13→20:25)
[2025-03-30] MEDS: TRUSOPT 2% OPHTHALMIC SOLUTION 1 DROP LEFT EYE ×2 (10:13→20:19)
[2025-03-30] MEDS: TIMOPTIC 0.5% OPHTHALMIC SOLUTION 1 DROP LEFT EYE ×2 (10:13→20:21)
[2025-03-30] MEDS: PRED FORTE 1% EYE DROPS 1 DROP LEFT EYE ×4 (10:14→22:07)
[2025-03-30] MEDS: ALPHAGAN 0.2% EYE DROPS 1 DROP LEFT EYE ×2 (10:14→20:25)
[2025-03-30 11:57] LABS: Glucose - Point of Care 276 mg/dl (70-99)
[2025-03-30] MEDS: NOVOLOG FLEXPEN-LOW RESISTANCE 3 UNITS SC (12:42)
--- NOTE | 2025-03-30 14:26 | W.PN.HOSP.TC ---
Today's Communication/Plan
-
Continue Antibiotics.
Regular diet.
Wean oxygen
Assessment / Plan
Assessment / Plan
Impression :
Mr. Elio Chapman is a 59 yo man with hx IDDM, essential HTN, CKD, PAD s/p left AKA 07/06 and s/p right TMA 01/06 admitted 02/13-02/22 for acute osteomyelitis of right metatarsal amputation (s/p limflow procedure discharged 6 weeks
Vanc/Ertapenem/Fluconazole) admitted again 03/03-03/08 for lethargy, LINDY (s/p correa catheter, IV Vanc changed to IV Daptomycin) and completed antibiotics 03/26/25 then with worsening shortness of breath and hypoxia over the weekend found to have
multifocal pneumonia.
Triage VS: T 97.3, P 102, RR 30, BP 139/71, SpO2 81%
patient required high flow in the ER with increasing oxygen requirements
Assessment/plan:
Multifocal Pneumonia
Flu and COVID negative. Patient with new hypoxia and multifocal pneumonia with symptom onset at the end of prior antibiotic course (Dapto/Ertapenem). Admitted to IMU.
Will discontinue IV Vancomycin with negative MRSA swab
Started on IV Cefepime (previous regimen did not cover Pseudomonas).
Continue Doxycycline for atypical coverage.
Follow up blood cultures and sputum culture.
Continue AUTOMOTIVE WARRANTY ADMINISTRATOR daily Fluconazole�per ID requires a 6-month course for candidal osteomyelitis.
ID and Pulmonary consulted.
Seen by Speech Therapy who recommended regular diet.
Acute Hypoxic Respiratory Failure secondary to above
Placed on high flow in the ER for drop in oxygen saturations while on 6L.
Weaned down to 6L , now 5 L.
PAD status post left AKA (07/06) and right TMA (01/06)
Osteomyelitis at right TMA amputation site status post 6 weeks IV antibiotics completed 03/26.
Continue AUTOMOTIVE WARRANTY ADMINISTRATOR Aspirin and Prasugrel.
ID consult appreciated.
Patient is due for follow-up with podiatry for possible debridement�could be outpatient, need to wait until acute issues resolve.
Wound care. PT/OT.
NIDDM
Hypoglycemia on AM labs
Glucose 65 12/16 am. resolved
A1c 5.7%.
Hold AUTOMOTIVE WARRANTY ADMINISTRATOR Farxiga given poor PO intake.
Hold Metformin.
ISS low.
Hypokalemia
Repleted.
CKD III with baseline creatinine 1.1
LR. Monitor daily.
Essential Hypertension
AUTOMOTIVE WARRANTY ADMINISTRATOR regimen: Amlodipine 10 mg PO QD with hold parameters;
Clonidine 0.15 mg PO QD;
Hydralazine 50 mg PO TID with hold parameters;
Lisinopril 40 mg PO QD�will order � dose for now;
hold AUTOMOTIVE WARRANTY ADMINISTRATOR HCTZ. Monitor BP and adjust back to home regimen if needed.
Chronic Anemia
Add on iron studies; likely some dilutional drop this morning.
HLD
Continue AUTOMOTIVE WARRANTY ADMINISTRATOR Statin.
Anxiety
Continue AUTOMOTIVE WARRANTY ADMINISTRATOR Zoloft.
BPH
Continue AUTOMOTIVE WARRANTY ADMINISTRATOR Flomax.
GI Prophylaxis
Start Protonix as patient is on Aspirin, Prasugrel, and Heparin subQ.
Code Status: Full Code.
DVT Prophylaxis: Heparin subQ.
Diet: Regular diet
Disposition: Continue Antibiotics.
Regular diet.
Wean oxygen
Total�time�spent�on�today�s�encounter�was�65�minutes�which�included�time�spent�in�counseling�the�patient/family�regarding�diagnosis�and�treatment�plan�as�listed�above,�goals�of�care,�and�symptom�management.�Case�was�discussed�with�nursing�staff,�spec
ialists,�and�care�coordinators/case�management.�All�labs�and�imaging�personally�reviewed�by�me.�Remainder�the�time�spent�in�detailed�review�of�previous�records,�lab�data,�imaging,�and�other�medical�provider�documentation.
�
Anticipated Discharge: > 48 hours
Subjective/Interval History
-
Date of Service: March 30, 2025
Patient seen and examined at bedside, patient sleeping on conversation but answering question, denies any chest pain or shortness of breath, no abdominal pain, no nausea, no vomiting, no diarrhea or constipation.
Objective Data
-
Labs:
Laboratory Results
03/30/25
05:26
WBC 14.2 H
Hgb 7.4 L
Hct 21.7 L
Plt Count 608 H
Sodium 133 L
Potassium 3.8
Chloride 109 H
Carbon Dioxide 17 L
BUN 22 H
Creatinine 0.9
Glucose 194 H
Calcium 8.8
Vital Signs:
Vital Signs
Temp Pulse Resp BP Pulse Ox
97.3 F 89 30 126/67 100
03/30/25 03:32 03/30/25 14:00 03/30/25 14:00 03/30/25 14:00 03/30/25 14:21
I&O
03/29/25 03/30/25 03/31/25
06:59 06:59 06:59
Intake Total 1800 / 1800 1200 / 1200 240 / 240
Output Total 3350 / 3350 1050 / 1050
Balance -1550 / -1550 150 / 150 240 / 240
Physical Exam
-
General: Well Developed, Well Nourished, No Apparent Distress and Comfortable
HEENT: Normocephalic, Atraumatic, Moist Mucous Membranes, No Ptosis, PERRLA and Nose Appears Normal
Respiratory: Rales, Rhonchi and Non Labored Respirations
Cardiac: Regular Rhythm and S1/S2
Breast: Deferred by me
GI: Soft, Nontender, Nondistended and Normal Bowel Sounds
Genito-urinary: No Costovertebral Tender
Musculoskeletal: No Clubbing and Other ( (L AKA, R toe amp))
Skin: Warm
Neuro: Awake, Alert, Oriented, AO x 3 and No Motor Deficits
Psych: Calm
--- NOTE | 2025-03-30 16:06 | CM ---
F/U: KIRT Luna spoke to son. Son wants a transfer to the [facility] or a SNF that they are associated with vs. return to [facility] where the patient has lived for 3 months. KIRT cautioned son stating that hopefully the [facility] follows up and asked for a
Plan B, which the son does not have. KIRT called the [facility], finally obtained a name/ number: [facility] #[phone] and eft a message. KIRT will let Hospitalist know this. Patient not ready yet. PLAN: SNF elsewhere or return to [facility].
[2025-03-30] MEDS: NOVOLIN N vial 0.08 UNITS SC (16:25)
[2025-03-30] MEDS: NOVOLOG FLEXPEN-MODERATE RESISTANCE 5 UNITS SC (16:26)
[2025-03-30 16:36] LABS: Glucose - Point of Care 282 mg/dl (70-99)
[2025-03-30] MEDS: CRESTOR 20 MG PO (16:58)
[2025-03-30] MEDS: DECADRON IV (17:39)
[2025-03-30 19:09] LABS: Glucose - Point of Care 290 mg/dl (70-99)
[2025-03-30 21:25] LABS: Glucose - Point of Care 296 mg/dl (70-99)
[2025-03-31] VITALS (13 sets, daily range): BP systolic 120–136; BP diastolic 63–74; BMI 26.7
[2025-03-31] MEDS: MAXIPIME 2000 MG IV ×2 (05:03→12:05)
[2025-03-31] MEDS: STERILE WATER FOR INJECTION 10 ML IV ×2 (05:03→12:05)
[2025-03-31] MEDS: DECADRON 4 MG IV ×2 (05:03→17:06)
[2025-03-31 05:58] LABS: Hematocrit 22.1 % (39.0-52.0); Hemoglobin 7.6 g/dL (13.0-18.0); Mean Corp Hgb Conc. 34.4 g/dL (33.0-37.0); Mean Corpuscular Volume 85.0 fL (80.0-94.0); Platelet Count 701 10^3/uL (130-400); Red Cell Dist. Width 16.3 % (11.5-14.5)
--- NOTE | 2025-03-31 06:22 | PTCARENOTE ---
Caring for pt overnight. aaox3, drowsy but easily aroused. NSR, titrated down to 2LNC 100%. Q2T. wound care completed on R foot, all other dressings CDI. Bustamante in place draining yellow urine. No BM. PT refused suppository. VSS. Ivabx. No other
changes.
[2025-03-31 06:25] LABS: Blood Urea Nitrogen 28 mg/dl (9-20); Calcium 9.0 mg/dl (8.4-10.2); Carbon Dioxide 13 mmol/L (22-30); Chloride 109 mmol/L (98-107); Estimated Creatinine Clearance 95 ml/min; Glucose 229 mg/dl (70-99); Potassium 3.7 mmol/L (3.5-5.1); Sodium 132 mmol/L (135-145); eGFR > 60.00
[2025-03-31] MEDS: HEPARIN 5000 UNITS SC ×2 (08:41→21:10)
[2025-03-31] MEDS: VISBIOME 1 CAP PO (08:41)
[2025-03-31] MEDS: LOW STRENGTH ASPIRIN 81 MG PO (08:41)
[2025-03-31] MEDS: VIBRAMYCIN 100 MG PO (08:41)
[2025-03-31] MEDS: ZESTRIL 20 MG PO (08:41)
[2025-03-31] MEDS: ALPHAGAN 0.2% EYE DROPS 1 DROP LEFT EYE ×2 (08:41→21:09)
[2025-03-31] MEDS: ZOLOFT 25 MG PO (08:42)
[2025-03-31] MEDS: NEURONTIN 300 MG PO ×3 (08:42→21:10)
[2025-03-31] MEDS: DIAMOX 500 MG PO ×2 (08:42→21:11)
[2025-03-31] MEDS: FLOMAX 0.8 MG PO (08:42)
[2025-03-31] MEDS: PROTONIX 40 MG PO (08:42)
[2025-03-31] MEDS: DIFLUCAN 400 MG PO (08:42)
[2025-03-31] MEDS: MUCINEX 600 MG PO ×2 (08:42→21:09)
[2025-03-31] MEDS: EFFIENT 10 MG PO (08:43)
[2025-03-31] MEDS: ATROPINE SULFATE 1% DROPS 1 DROP LEFT EYE ×2 (08:43→21:09)
[2025-03-31] MEDS: NORVASC 10 MG PO (08:43)
[2025-03-31] MEDS: APRESOLINE 50 MG PO ×3 (08:43→21:11)
[2025-03-31] MEDS: CATAPRES 0.1 MG PO (08:43)
[2025-03-31] MEDS: PRED FORTE 1% EYE DROPS 1 DROP LEFT EYE ×4 (08:44→21:09)
[2025-03-31] MEDS: TRUSOPT 2% OPHTHALMIC SOLUTION 1 DROP LEFT EYE ×2 (08:44→21:09)
[2025-03-31] MEDS: TIMOPTIC 0.5% OPHTHALMIC SOLUTION 1 DROP LEFT EYE ×2 (08:44→21:09)
[2025-03-31 08:51] LABS: Glucose - Point of Care 217 mg/dl (70-99)
[2025-03-31] MEDS: NOVOLOG FLEXPEN-MODERATE RESISTANCE 3 UNITS SC ×2 (08:59→18:44)
--- NOTE | 2025-03-31 09:35 | W.PN.PUL3 ---
Today's Communication / Plan
-
Improving PNA, weaning down O2 and IV steroids
Repeat CXR improved
ECHO showing possible echodense calcifications, may need CHRISTOPHER, ID following
IV abx per team
Likely can transfer out of IMU
Assessment
-
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
of breath and hypoxia over the weekend. He resides in a [place] [facility] and was started on outpatient course of Levaquin. He had recently completed antibiotic course for osteomyelitis in February. He was notably hypoxemic at the [place] [facility], placed
on O2. He does note intermittent coughing without sputum. Chest x-ray demonstrated bilateral infiltrates. Due to his need for high flow and hypoxemia, he is admitted to IMU. We are consulted for evaluation.
Acute hypoxic respiratory failure
Bilateral pneumonia suspected
Shortness of breath, cough
Leukocytosis
Metabolic acidosis
Hypoglycemia
Acute on chronic anemia
Hyponatremia
Hypokalemia
Gangrenous right foot
Conditions present prior to admission
HTN
Type 2 diabetes
Hyperlipidemia
Cellulitis
Acute kidney failure
PVD
Left lower extremity arteriogram (Dr. De La Garza) 07/01/2024
L BKA (Dr. De La Garza) 09/03/2024
Toe amp right foot 11/2024
DH Adm: Gangrene of the left third toe and tip of the left second toe (06/28-07/06) 06/2024
DH Adm: R foot Osteo, LINDY w/p 6 weeks IV erta, vanc, flucon (03/03-03/08/25)
Plan
Hypoxemia noted on arrival, currently on 10L--reduced to 2L--improving
ABG-7.31/35//17 with severe AA gradient (meeting for ARDS criteria)
No oxygen was needed at baseline
Wean as tolerated, satting 100%--can likely wean to RA
Prior history of lung disease is NOT noted--
Denies any prior known history of lung disease, reports that he is a non-smoker.
Denies any family history of lung disease.
Prior chest imaging normal
Suspect patient has multifocal pneumonia, BNP negative
CXR/CT obtained indicating bilateral infiltrates
Other imaging reviewed, this is new compared to prior
We will also obtain dedicated CT to evaluate extent of lung disease--reviewed/severe and bilateral
IV steroids added--weaning down dose
Repeat imaging in next 24 hours--reviewed/improved
Agree with treatment with IV antibiotics
Blood cultures are sent
Obtain sputum culture if needed
He has other concerning signs of sepsis including metabolic acidosis, hypoglycemia
Creatinine at baseline, has had prior history of CKD with LINDY
Monitor urine output
He has had a history of bacteremia, no prior echo for review
Obtain baseline echo
Extensive records from prior hospitalizations reviewed
He is well-known to vascular
May need additional consult for active gangrene on the right leg and recent admission for osteo
Diagnostic Data
Chest X-Ray: 03/28/25-Findings suggesting moderate bilateral pneumonia. New
03/03/25-No acute disease of the chest.
CT Scan: CHEST 03/29/25-Bilateral pneumonia. Small bilateral pleural effusions.
Echo: 03/30/25-1. Hyperdynamic left ventricular systolic function with mild left ventricular hypertrophy (septal wall). No left ventricular outflow tract gradient.
2. Dilated right ventricle with normal systolic function.
3. Aortic sclerosis without stenosis.
4. Limited evaluation of the tricuspid valve is normal.
5. There is a protruding echobright non-mobile density in the left ventricular outflow tract just below or at the valve plane most consistent with calcification. If clinical suspicion persists, serial imaging vs CHRISTOPHER can be done in further
evaluation.
PFT's:
Reports and relevant images were personally reviewed.
Total time spent on this consultation __51__ minutes which includes review of history, physical exam, medications, laboratory data, personal review of imaging, extensive review of outpatient records, discussion with care team and respiratory therapy.
Subjective Data
-
Date of Service:
Date of Service: March 31, 2025
Chief Complaint: Pulmonary Follow Up
Subjective:
Improving, now 100% on 2L
No new complaints, sleeping constantly
Objective Data
Data Reviewed
Vital Signs / I&O / Oxygen:
Vital Signs
Temp Pulse Resp BP Pulse Ox
97.9 F 87 23 126/67 100
03/31/25 08:11 03/31/25 08:43 03/31/25 06:00 03/31/25 08:43 03/31/25 06:22
Intake and Output
03/30/25 03/31/25 04/01/25
06:59 06:59 06:59
Intake Total 1200 / 1200 1080 / 1080
Output Total 1050 / 1050 1850 / 1850
Balance 150 / 150 -770 / -770
SaO2 100
Nasal Cannula flow liters per 2
minute
Physical Exam
General: Comfortable and Other (NAD)
HEENT: Normocephalic, Anicteric and Moist Mucous Membranes
Cardiovascular: S1-S2, Regular Rhythm and Other (L AKA, R toe amp)
Respiratory: Crackles (improving) and Non-Labored Respirations
GI: Soft, Non Distended and Non Tender
Neurology: Awake, Alert, Oriented and No Motor Deficits
Skin: Warm and Dry
Labs/Micro/Reports
Lab Data
03/31/25 05:05
03/31/25 05:05
Microbiology
03/28/25 09:28 Blood/Venous Blood Culture - Preliminary
No Growth in 72 hours- Final report to follow
03/28/25 10:34 Blood/Venous Blood Culture - Preliminary
No Growth in 48 hours- Final report to follow
03/28/25 23:31 Nose MRSA Screen - Final
No Methicillin Resistant Staphylococcus aureus isolated.
03/28/25 23:31 Urine Legionella Urinary Antigen - Final
Negative for Legionella pneumophila Serogroup 1 antigen.
A negative result does not rule out the possiblity of
Legionella infection due to other serogroups or species of
Legionella. Clinical correlation is recommended.
03/28/25 23:31 Urine Streptococcus pneumoniae Antigen (M - Final
Negative for Streptococcus pneumoniae antigen.
A negative result does not exclude infection with
Streptococcus pneumoniae. Clinical correlation is
recommended.
03/28/25 10:34 Nasal Swab Influenza Types A & B ([facility]) - Final
Negative for Influenza A & B, NAAT
Negative results must be combined with clinical observations
and patient history.
Nucleic Acid Amplification test (NAAT)performed on the
[employer] NOW platform.
03/28/25 09:28 Nasal Swab Influenza Types A & B ([facility]) - Final
Test repeatedly invalid.
Nucleic Acid Amplification test (NAAT)performed on the
[employer] NOW platform.
[2025-03-31 11:47] LABS: Glucose - Point of Care 198 mg/dl (70-99)
--- NOTE | 2025-03-31 12:00 | W.PN.ID1 ---
Date of Service
Date of Service: March 31, 2025
Today's Communication
- start levofloxacin to complete a 7 day total course 03/28-04/03
- recheck QTc in the AM
- dexamethasone taper per pulmonary
- picc removal before dc
Assessment / Plan
Community Acquired Pneumonia
Acute Respiratory Failure
Leukocytosis
- not able to produce a sputum, now on room air
- blood cultures x2 are in progress NGTD
- start levofloxacin to complete a 7 day total course 03/28-04/03
- recheck QTc in the AM
- dexamethasone taper per pulmonary
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
- ongoing probe to bone medially approximately over the 2nd and 3rd metatarsal shafts
- has completed 6 weeks of IV daptomycin and ertapenem, unless there is further resection to continue fluconazole 400 mg PO qday to 6 months
- monthly LFT check
- QTcB 400 - acceptable
- PICC to be removed before discharge
- due for follow up with podiatry for possible debridement can be done outpatient
Chief Complaint
-: Pneumonia and Other (osteomyelitis)
Subjective / Review of Systems
afebrile
bp stable
now on room air
no complaints
Vital Signs / Physical Exam
Vital Signs
Vital Signs
Temp Pulse Resp BP Pulse Ox
97.9 F 82 24 132/68 96
03/31/25 08:11 03/31/25 10:00 03/31/25 10:00 03/31/25 10:00 03/31/25 11:03
Physical Exam
Constitutional: No Acute Distress and Chronically Ill
Cardiovascular: Regular Rate and S1/S2; Negative Murmur or Rub
Pulmonary: Clear and Symmetric; Negative Wheezes or Rales
Gastrointestinal: Soft, Non Tender, Non Distended and Normal Bowel Sounds
Skin: Warm and Dry; Negative Rash or Jaundice
Wound: Other (deferred dressing take down today)
Objective Data
Lab Data
Lab Results
03/31/25 05:05
03/31/25 05:05
Estimated Creat Clear 95 ml/min 03/31/25 05:05
Lactic Acid 0.9 mmol/L (0.7-2.0) 03/28/25 09:29
Total Bilirubin 0.6 mg/dl (0.2-1.3) 03/28/25 09:28
AST 84 U/L (17-59) H 03/28/25 09:28
ALT 79 U/L (0-50) H 03/28/25 09:28
Alkaline Phosphatase 174 U/L (38-126) H 03/28/25 09:28
Most recent labs reviewed.
Micro Results:
03/28/25 10:34 Blood Culture - Preliminary
Blood/Venous No Growth in 72 hours- Final report to follow
03/28/25 09:28 Blood Culture - Preliminary
Blood/Venous No Growth in 72 hours- Final report to follow
03/28/25 23:31 MRSA Screen - Final
Nose No Methicillin Resistant Staphylococcus aureus isolated.
03/28/25 23:31 Legionella Urinary Antigen - Final
Urine Negative for Legionella pneumophila Serogroup 1 antigen.
A negative result does not rule out the possiblity of
Legionella infection due to other serogroups or species of
Legionella. Clinical correlation is recommended.
Streptococcus pneumoniae Antigen (M - Final
Negative for Streptococcus pneumoniae antigen.
A negative result does not exclude infection with
Streptococcus pneumoniae. Clinical correlation is
recommended.
03/28/25 10:34 Influenza Types A & B ([facility]) - Final
Nasal Swab Negative for Influenza A & B, NAAT
Negative results must be combined with clinical observations
and patient history.
Nucleic Acid Amplification test (NAAT)performed on the
[employer] platform.
03/28/25 09:28 Influenza Types A & B ([facility]) - Final
Nasal Swab Test repeatedly invalid.
Nucleic Acid Amplification test (NAAT)performed on the
[employer] platform.
Chest X-Ray: Image Reviewed and Report Reviewed (severe multifocal pneumonia)
[2025-03-31] MEDS: NOVOLOG FLEXPEN-MODERATE RESISTANCE 1 UNITS SC (12:04)
--- NOTE | 2025-03-31 14:27 | W.PN.HOSP.TC ---
Today's Communication/Plan
-
Continue Antibiotics.
Wean oxygen
Assessment / Plan
Assessment / Plan
Impression :
Mr. Elio Chapman is a 59 yo man with hx IDDM, essential HTN, CKD, PAD s/p left AKA 07/06 and s/p right TMA 01/06 admitted 02/13-02/22 for acute osteomyelitis of right metatarsal amputation (s/p limflow procedure discharged 6 weeks
Vanc/Ertapenem/Fluconazole) admitted again 03/03-03/08 for lethargy, LINDY (s/p correa catheter, IV Vanc changed to IV Daptomycin) and completed antibiotics 03/26/25 then with worsening shortness of breath and hypoxia over the weekend found to have
multifocal pneumonia.
Triage VS: T 97.3, P 102, RR 30, BP 139/71, SpO2 81%
patient required high flow in the ER with increasing oxygen requirements
Patient continued to improve, oxygen weaned to 2 L.
Assessment/plan:
Multifocal Pneumonia
Flu and COVID negative. Patient with new hypoxia and multifocal pneumonia with symptom onset at the end of prior antibiotic course (Dapto/Ertapenem). Admitted to IMU.
Will discontinue IV Vancomycin with negative MRSA swab
Started on IV Cefepime (previous regimen did not cover Pseudomonas).
Continue Doxycycline for atypical coverage.
Follow up blood cultures and sputum culture.
Continue METAL BURNISHER daily Fluconazole�per ID requires a 6-month course for candidal osteomyelitis.
ID and Pulmonary consulted.
Seen by Speech Therapy who recommended regular diet.
Acute Hypoxic Respiratory Failure secondary to above
Placed on high flow in the ER for drop in oxygen saturations while on 6L.
Weaned down to 6L , now 5 L.
03/31
Continue to improve.
Weaned to 2 Ls
PAD status post left AKA (07/06) and right TMA (01/06)
Osteomyelitis at right TMA amputation site status post 6 weeks IV antibiotics completed 03/26.
Continue METAL BURNISHER Aspirin and Prasugrel.
ID consult appreciated.
Patient is due for follow-up with podiatry for possible debridement�could be outpatient, need to wait until acute issues resolve.
Wound care. PT/OT.
NIDDM
Hypoglycemia on AM labs
Glucose 65 12/16 am. resolved
A1c 5.7%.
Hold METAL BURNISHER Farxiga given poor PO intake.
Hold Metformin.
ISS low.
Hypokalemia
Repleted.
CKD III with baseline creatinine 1.1
LR. Monitor daily.
Essential Hypertension
METAL BURNISHER regimen: Amlodipine 10 mg PO QD with hold parameters;
Clonidine 0.15 mg PO QD;
Hydralazine 50 mg PO TID with hold parameters;
Lisinopril 40 mg PO QD�will order � dose for now;
hold METAL BURNISHER HCTZ. Monitor BP and adjust back to home regimen if needed.
Chronic Anemia
Add on iron studies; likely some dilutional drop this morning.
HLD
Continue METAL BURNISHER Statin.
Anxiety
Continue METAL BURNISHER Zoloft.
BPH
Continue METAL BURNISHER Flomax.
GI Prophylaxis
Start Protonix as patient is on Aspirin, Prasugrel, and Heparin subQ.
Code Status: Full Code.
DVT Prophylaxis: Heparin subQ.
Diet: Regular diet
Disposition: Continue Antibiotics.
Regular diet.
Wean oxygen
Total�time�spent�on�today�s�encounter�was�65�minutes�which�included�time�spent�in�counseling�the�patient/family�regarding�diagnosis�and�treatment�plan�as�listed�above,�goals�of�care,�and�symptom�management.�Case�was�discussed�with�nursing�staff,�spec
ialists,�and�care�coordinators/case�management.�All�labs�and�imaging�personally�reviewed�by�me.�Remainder�the�time�spent�in�detailed�review�of�previous�records,�lab�data,�imaging,�and�other�medical�provider�documentation.
�
Anticipated Discharge: > 48 hours
Subjective/Interval History
-
Date of Service: March 31, 2025
Patient seen and examined at bedside, patient is more awake compared to yesterday, denies any chest pain or shortness of breath, no abdominal pain, no nausea, no vomiting, no diarrhea or constipation
Objective Data
-
Labs:
Laboratory Results
03/31/25
05:05
WBC 17.0 H
Hgb 7.6 L
Hct 22.1 L
Plt Count 701 H
Sodium 132 L
Potassium 3.7
Chloride 109 H
Carbon Dioxide 13 L*
BUN 28 H
Creatinine 0.9
Glucose 229 H
Calcium 9.0
Vital Signs:
Vital Signs
Temp Pulse Resp BP Pulse Ox
97.3 F 83 23 120/69 100
03/31/25 12:57 03/31/25 12:00 03/31/25 12:00 03/31/25 12:00 03/31/25 13:06
I&O
03/30/25 03/31/25 04/01/25
06:59 06:59 06:59
Intake Total 1200 / 1200 1080 / 1080
Output Total 1050 / 1050 1850 / 1850
Balance 150 / 150 -770 / -770
Physical Exam
-
General: Well Developed, Well Nourished, No Apparent Distress and Comfortable
HEENT: Normocephalic, Atraumatic, Moist Mucous Membranes, No Ptosis, PERRLA and Nose Appears Normal
Respiratory: Rales, Rhonchi and Non Labored Respirations
Cardiac: Regular Rhythm and S1/S2
Breast: Deferred by me
GI: Soft, Nontender, Nondistended and Normal Bowel Sounds
Genito-urinary: No Costovertebral Tender
Musculoskeletal: No Clubbing and Other ( (L AKA, R toe amp))
Skin: Warm
Neuro: Awake, Alert, Oriented, AO x 3 and No Motor Deficits
Psych: Calm
--- NOTE | 2025-03-31 14:43 | PN.DE.MGMTRT ---
Insulin Management
- -
03/31/2025: Diabetes Management Consult
59 year old male with PMH: HTN, HLD, NIDDM, PAD s/p L AKA 07/06, osteomyelitis of right TMA 01/06, limb flow procedure 02/17/25 with underlying osteomyelitis. Patient presented to [facility] ED on 03/29 with progressive shortness of breath and nonproductive
cough. CXR/CT obtained indicating bilateral infiltrates concerning for multifocal pneumonia. Patient is well known to diabetes service, diabetes consult requested today for uncontrolled glucose.
He was initially mildly hypoglycemic but was started on IV steroids contributing to Hyperglycemia.
He was taking Farxiga 10mg daily and Metformin 750mg daily prior to admission. A1C is 5.4%, Cr 0.9, eGFR >60,
Patient is currently napping, unable to interview, information obtained from chart review and Nurse. No family at bedside
His Metformin and Farxiga were held on admission. Patient remains on IV steroids-Dexa 4mg Q12 hrs.
HS Glucose trended up to 296, fasting 229 Venous today. Premeal glucose today has been 198 to 217, received 1-3 units of corrective insulin. Nurse reports pt has very poor appetite and not eating much.
Will give 1 time dose of Lantus 15 units now and start 15 units daily in AM while on steroids.
Will start low dose AC NovoLog 3 units and cont moderate corrective with meals. Discussed with Nurse and instructed to HOLD AC dose if pt is not eating.
Will resume his OP regimen when diet has improved and no more procedures planned.
Will cont to follow.
Diabetes History
- -
Type of Diabetes: 2 requiring insulin
Pre-Admission Diabetes Regimen
03/31/25
05:05
Creatinine 0.9
Lab Results
Hemoglobin A1c 5.4 % (4.0-5.9) 03/29/25 04:58
Insulin Pump Settings
IP Diabetes Regimen
03/30/25 03/30/25 03/30/25
16:25 18:58 21:14
Glucose
POC Glucose 282 H 290 H 296 H
03/31/25 03/31/25 03/31/25
05:05 08:39 11:36
Glucose 229 H
POC Glucose 217 H 198 H
Patient Education
[2025-03-31] MEDS: LANTUS 0.15 UNITS SC (15:33)
--- NOTE | 2025-03-31 16:19 | CM ---
F/U: CM Garrod through many channels found the ED-TEAM ([phone]: [phone]) at the [facility] who directed CM to COUNT ROOM CLERK Dept ([phone]: [phone]) who both said they don't assist with SNF placement per the son request. Then CM was forward to the [facility]
Team that handles placement: Email: where CM rec'd email back with a list of facilities that this team can help patient get into because patient is 90% service connected.
CM talk to son who shared that he really want a transfer to the [facility]. CM found Dr. Paul Bhagat, Hospitalist at the [facility] for triage of the day, had our Hospitalist speak to him about a transfer, patient was declined. Therefore, the son will
have another plan for his father vs. probably returning to [facility]. PLAN: TBD.
[2025-03-31] MEDS: CRESTOR 20 MG PO (17:05)
[2025-03-31] MEDS: LEVAQUIN 750 MG PO (17:05)
[2025-03-31 18:27] LABS: Glucose - Point of Care 227 mg/dl (70-99)
[2025-03-31] MEDS: NOVOLOG FLEXPEN 3 UNITS SC (18:43)
[2025-03-31 21:29] LABS: Glucose - Point of Care 210 mg/dl (70-99)
[2025-04-01] VITALS (13 sets, daily range): BP systolic 101–127; BP diastolic 57–77; BMI 26.5
--- NOTE | 2025-04-01 03:47 | PTCARENOTE ---
Pt appearing to get rest over night. Respirations even unlabored spo2 97% ra. Pt wound care completed, Pt appeared to tolerate well. Call walker within reach. bedin lowest position alarm on.
[2025-04-01] MEDS: DECADRON 4 MG IV (03:59)
[2025-04-01] MEDS: DULCOLAX 10 MG RECTAL (03:59)
[2025-04-01 05:25] LABS: Blood Urea Nitrogen 30 mg/dl (9-20); Calcium 9.2 mg/dl (8.4-10.2); Carbon Dioxide 13 mmol/L (22-30); Chloride 110 mmol/L (98-107); Estimated Creatinine Clearance 107 ml/min; Glucose 186 mg/dl (70-99); Potassium 3.5 mmol/L (3.5-5.1); Sodium 134 mmol/L (135-145); eGFR > 60.00
[2025-04-01 06:01] LABS: Hematocrit 22.1 % (39.0-52.0); Hemoglobin 7.6 g/dL (13.0-18.0); Mean Corp Hgb Conc. 34.4 g/dL (33.0-37.0); Mean Corpuscular Volume 84.7 fL (80.0-94.0); Platelet Count 704 10^3/uL (130-400); Red Cell Dist. Width 16.4 % (11.5-14.5)
--- NOTE | 2025-04-01 06:16 | PTCARENOTE ---
Pt stating he has not had a BM in 'a couple days'. Documentation showing no BM since admit. education given. Pt given PRN suppository per order. Pt tolerating well.
--- NOTE | 2025-04-01 07:46 | PN.DE.MGMTRT ---
Insulin Management
- -
04/01/2025: Diabetes Management follow up
59 year old male with PMH: HTN, HLD, NIDDM, PAD s/p L AKA 07/06, osteomyelitis of right TMA 01/06, limb flow procedure 02/17/25 with underlying osteomyelitis. Patient presented to [facility] ED on 03/29 with progressive shortness of breath and nonproductive
cough. CXR/CT obtained indicating bilateral infiltrates concerning for multifocal pneumonia. Patient is well known to diabetes service, diabetes consult requested today for uncontrolled glucose.
He was initially mildly hypoglycemic but was started on IV steroids contributing to Hyperglycemia.
He was taking Farxiga 10mg daily and Metformin 750mg daily prior to admission, both were held on admission. A1C is 5.4%, Cr 0.9, eGFR >60,
Patient was napping at time of visit, able to stay awake briefly but fell right back to sleep, appears depressed with flat affect. No family at bedside
Patient remains on IV steroids-Dexa 4mg Q12 hrs contributing to hyperglycemia.
03/31 started Lantus and AC NovoLog in the afternoon. Nurse reports pt has very poor appetite and not eating much.
HS Glucose 210, fasting 186 Venous, 218 POC. Pre-dinner glucose was 227, received 6 units of insulin.
Will increase AC NovoLog to 6 units. Cont Lantus 15 units daily in AM and moderate corrective with meals while on steroids.
Discussed with Nurse and instructed to HOLD AC dose if pt is not eating.
Will resume his OP regimen when appetite has improved and no more procedures planned.
Will cont to follow.
Diabetes History
- -
Type of Diabetes: 2 requiring insulin
Pre-Admission Diabetes Regimen
04/01/25
04:01
Creatinine 0.8
Lab Results
Hemoglobin A1c 5.4 % (4.0-5.9) 03/29/25 04:58
Insulin Pump Settings
IP Diabetes Regimen
03/31/25 03/31/25 03/31/25
08:39 11:36 18:15
Glucose
POC Glucose 217 H 198 H 227 H
03/31/25 04/01/25
21:18 04:01
Glucose 186 H
POC Glucose 210 H
Meal type: Dinner
Amount consumed: 40%
Patient Education
[2025-04-01 08:53] LABS: Glucose - Point of Care 218 mg/dl (70-99)
--- NOTE | 2025-04-01 09:17 | W.PN.PUL3 ---
Today's Communication / Plan
-
PNA resolved rapidly, now 100% on RA, stop steroids
ECHO with density, defer to ID for recs, IV abx per team
Acidosis noted, likely diamox-discontinued, will give 1 amp bicarb--this medication may need dose adjustment moving forward
Encouraged OOB today, he does not wish to, PT/OT
Can transfer out of IMU
We will sign off at this time, please call with questions
Assessment
-
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
of breath and hypoxia over the weekend. He resides in a fdc and was started on outpatient course of Levaquin. He had recently completed antibiotic course for osteomyelitis in February. He was notably hypoxemic at the fdc, placed
on O2. He does note intermittent coughing without sputum. Chest x-ray demonstrated bilateral infiltrates. Due to his need for high flow and hypoxemia, he is admitted to IMU. We are consulted for evaluation.
Acute hypoxic respiratory failure
Bilateral pneumonia suspected
Shortness of breath, cough
Leukocytosis
Metabolic acidosis
Hypoglycemia
Acute on chronic anemia
Hyponatremia
Hypokalemia
Gangrenous right foot
Density on ECHO
Conditions present prior to admission
HTN
Type 2 diabetes
Hyperlipidemia
Cellulitis
Acute kidney failure
PVD
Left lower extremity arteriogram (Dr. De La Garza) 07/01/2024
L BKA (Dr. De La Garza) 09/03/2024
Toe amp right foot 11/2024
DH Adm: Gangrene of the left third toe and tip of the left second toe (06/28-07/06) 06/2024
DH Adm: R foot Osteo, LINDY w/p 6 weeks IV erta, vanc, flucon (03/03-03/08/25)
Plan
Hypoxemia noted on arrival, currently on 10L--now weaned to RA
ABG-7./ with severe AA gradient (meeting for ARDS criteria)
No oxygen was needed at baseline
Rapid recovery
Prior history of lung disease is NOT noted--
Denies any prior known history of lung disease, reports that he is a non-smoker.
Denies any family history of lung disease.
Prior chest imaging normal
Suspect patient has multifocal pneumonia, BNP negative
CXR/CT obtained indicating bilateral infiltrates
Other imaging reviewed, this is new compared to prior
We will also obtain dedicated CT to evaluate extent of lung disease--reviewed/severe and bilateral
IV steroids added--stop today given rapid improvement
Repeat imaging--reviewed/improved
Agree with treatment with IV antibiotics--stop after 5 days
ID following
Blood cultures are sent
Obtain sputum culture if needed
ECHO with density noted, defer to ID for w/u
Creatinine at baseline, has had prior history of CKD with LINDY
Monitor urine output
Ongoing acidosis, stop diamox and give 1 amp
He has had a history of bacteremia, no prior echo for review
Obtain baseline echo--reviewed, may need CHRISTOPHER
Extensive records from prior hospitalizations reviewed
He is well-known to vascular
May need additional consult for active gangrene on the right leg and recent admission for osteo
Diagnostic Data
Chest X-Ray: 03/28/25-Findings suggesting moderate bilateral pneumonia. New
03/03/25-No acute disease of the chest.
CT Scan: CHEST 03/29/25-Bilateral pneumonia. Small bilateral pleural effusions.
Echo: 03/30/25-1. Hyperdynamic left ventricular systolic function with mild left ventricular hypertrophy (septal wall). No left ventricular outflow tract gradient.
2. Dilated right ventricle with normal systolic function.
3. Aortic sclerosis without stenosis.
4. Limited evaluation of the tricuspid valve is normal.
5. There is a protruding echobright non-mobile density in the left ventricular outflow tract just below or at the valve plane most consistent with calcification. If clinical suspicion persists, serial imaging vs CHRISTOPHER can be done in further
evaluation.
PFT's:
Reports and relevant images were personally reviewed.
Total time spent on this consultation __51__ minutes which includes review of history, physical exam, medications, laboratory data, personal review of imaging, extensive review of outpatient records, discussion with care team and respiratory therapy.
Subjective Data
-
Date of Service:
Date of Service: April 01, 2025
Chief Complaint: Pulmonary Follow Up
Subjective:
No new complaints, sleeping often
No desire to get OOB
Objective Data
Data Reviewed
Vital Signs / I&O / Oxygen:
Vital Signs
Temp Pulse Resp BP Pulse Ox
97.4 F 85 25 123/63 99
04/01/25 08:45 04/01/25 06:00 04/01/25 06:00 04/01/25 06:00 04/01/25 06:00
Intake and Output
03/31/25 04/01/25 04/02/25
06:59 06:59 06:59
Intake Total 1080 / 1080 720 / 720
Output Total 1850 / 1850 2450 / 2450
Balance -770 / -770 -1730 / -1730
SaO2 99
Nasal Cannula flow liters per 2
minute
Physical Exam
General: Comfortable and Other (NAD)
HEENT: Normocephalic, Anicteric and Moist Mucous Membranes
Cardiovascular: S1-S2, Regular Rhythm and Other (L AKA, R toe amp)
Respiratory: Crackles (improving) and Non-Labored Respirations
GI: Soft, Non Distended and Non Tender
Neurology: Awake, Alert, Oriented and No Motor Deficits
Skin: Warm and Dry
Labs/Micro/Reports
Lab Data
04/01/25 04:01
04/01/25 04:01
Microbiology
03/28/25 10:34 Blood/Venous Blood Culture - Preliminary
No Growth in 72 hours- Final report to follow
03/28/25 09:28 Blood/Venous Blood Culture - Preliminary
No Growth in 72 hours- Final report to follow
03/28/25 23:31 Nose MRSA Screen - Final
No Methicillin Resistant Staphylococcus aureus isolated.
03/28/25 23:31 Urine Legionella Urinary Antigen - Final
Negative for Legionella pneumophila Serogroup 1 antigen.
A negative result does not rule out the possiblity of
Legionella infection due to other serogroups or species of
Legionella. Clinical correlation is recommended.
03/28/25 23:31 Urine Streptococcus pneumoniae Antigen (M - Final
Negative for Streptococcus pneumoniae antigen.
A negative result does not exclude infection with
Streptococcus pneumoniae. Clinical correlation is
recommended.
[2025-04-01] MEDS: LANTUS 0.15 UNITS SC (09:22)
[2025-04-01] MEDS: HEPARIN 5000 UNITS SC ×2 (09:23→20:12)
[2025-04-01] MEDS: DIFLUCAN 400 MG PO (09:24)
[2025-04-01] MEDS: MUCINEX 600 MG PO ×2 (09:24→20:12)
[2025-04-01] MEDS: DIAMOX 500 MG PO (09:24)
[2025-04-01] MEDS: APRESOLINE 50 MG PO ×2 (09:25→17:42)
[2025-04-01] MEDS: CATAPRES 0.1 MG PO (09:25)
[2025-04-01] MEDS: ZOLOFT 25 MG PO (09:25)
[2025-04-01] MEDS: LEVAQUIN 750 MG PO (09:26)
[2025-04-01] MEDS: NEURONTIN 300 MG PO ×3 (09:26→21:33)
[2025-04-01] MEDS: FLOMAX 0.8 MG PO (09:26)
[2025-04-01] MEDS: PROTONIX 40 MG PO (09:26)
[2025-04-01] MEDS: NORVASC 10 MG PO (09:26)
[2025-04-01] MEDS: EFFIENT 10 MG PO (09:26)
[2025-04-01] MEDS: LOW STRENGTH ASPIRIN 81 MG PO (09:26)
[2025-04-01] MEDS: ZESTRIL 20 MG PO (09:27)
[2025-04-01] MEDS: NOVOLOG FLEXPEN 6 UNITS SC ×3 (09:29→17:45)
[2025-04-01] MEDS: NOVOLOG FLEXPEN-MODERATE RESISTANCE 3 UNITS SC (09:29)
[2025-04-01] MEDS: ALPHAGAN 0.2% EYE DROPS 1 DROP LEFT EYE ×2 (09:30→20:11)
[2025-04-01] MEDS: ATROPINE SULFATE 1% DROPS 1 DROP LEFT EYE ×2 (09:31→20:12)
--- NOTE | 2025-04-01 09:40 | W.PN.ID1 ---
Date of Service
Date of Service: April 01, 2025
Today's Communication
- start levofloxacin to complete a 7 day total course 03/28-04/03
- Qtc this AM 430
- dexamethasone taper per pulmonary
continue fluconazole 400 mg PO qday to 6 months 02/17-08/17/25
- monthly LFT check
- PICC to be removed before discharge
Lesion on LVOT most consistent with calcification
- 03/28 blood cultures x2 no growth at 4 days
- just finished a 6 week course of daptomycin and ertapenem, concern for endocarditis is low
- no need for further workup at this time
Assessment / Plan
Community Acquired Pneumonia
Acute Respiratory Failure
Leukocytosis
- not able to produce a sputum, now on room air
- blood cultures x2 are in progress NGTD
- start levofloxacin to complete a 7 day total course 03/28-04/03
- Qtc this AM 430
- dexamethasone taper per pulmonary
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
- ongoing probe to bone medially approximately over the 2nd and 3rd metatarsal shafts
- has completed 6 weeks of IV daptomycin and ertapenem,
- unless there is further resection to continue fluconazole 400 mg PO qday to 6 months 02/17-08/17/25
- monthly LFT check
- QTcB 400 - acceptable
- PICC to be removed before discharge
- due for follow up with podiatry for possible debridement can be done outpatient
Lesion on LVOT most consistent with calcification
- 03/28 blood cultures x2 no growth at 4 days
- just finished a 6 week course of daptomycin and ertapenem, concern for endocarditis is low
- no need for further workup at this time
Chief Complaint
-: Pneumonia and Other (osteomyelitis)
Subjective / Review of Systems
afebrile
bp stable
remains on room air
Vital Signs / Physical Exam
Vital Signs
Vital Signs
Temp Pulse Resp BP Pulse Ox
97.4 F 92 25 125/67 99
04/01/25 08:45 04/01/25 09:27 04/01/25 06:00 04/01/25 09:27 04/01/25 06:00
Physical Exam
Constitutional: No Acute Distress
Cardiovascular: Regular Rate and S1/S2; Negative Murmur or Rub
Pulmonary: Clear and Symmetric; Negative Wheezes or Rales
Gastrointestinal: Soft, Non Tender, Non Distended and Normal Bowel Sounds
Skin: Warm and Dry; Negative Rash or Jaundice
Wound: Other (deferred dressing take down)
Objective Data
Lab Data
Lab Results
04/01/25 04:01
04/01/25 04:01
Estimated Creat Clear 107 ml/min 04/01/25 04:01
Lactic Acid 0.9 mmol/L (0.7-2.0) 03/28/25 09:29
Total Bilirubin 0.6 mg/dl (0.2-1.3) 03/28/25 09:28
AST 84 U/L (17-59) H 03/28/25 09:28
ALT 79 U/L (0-50) H 03/28/25 09:28
Alkaline Phosphatase 174 U/L (38-126) H 03/28/25 09:28
Most recent labs reviewed.
Micro Results:
03/28/25 09:28 Blood Culture - Preliminary
Blood/Venous No Growth in 4 days- Final report to follow
03/28/25 10:34 Blood Culture - Preliminary
Blood/Venous No Growth in 72 hours- Final report to follow
03/28/25 23:31 MRSA Screen - Final
Nose No Methicillin Resistant Staphylococcus aureus isolated.
03/28/25 23:31 Legionella Urinary Antigen - Final
Urine Negative for Legionella pneumophila Serogroup 1 antigen.
A negative result does not rule out the possiblity of
Legionella infection due to other serogroups or species of
Legionella. Clinical correlation is recommended.
Streptococcus pneumoniae Antigen (M - Final
Negative for Streptococcus pneumoniae antigen.
A negative result does not exclude infection with
Streptococcus pneumoniae. Clinical correlation is
recommended.
03/28/25 10:34 Influenza Types A & B ([facility]) - Final
Nasal Swab Negative for Influenza A & B, NAAT
Negative results must be combined with clinical observations
and patient history.
Nucleic Acid Amplification test (NAAT)performed on the
[employer] NOW platform.
03/28/25 09:28 Influenza Types A & B ([facility]) - Final
Nasal Swab Test repeatedly invalid.
Nucleic Acid Amplification test (NAAT)performed on the
[employer] NOW platform.
Care Review
Plan reviewed with: Physician (Dr Jurado - LVOT lesion)
[2025-04-01] MEDS: PRED FORTE 1% EYE DROPS 1 DROP LEFT EYE ×4 (09:57→21:33)
[2025-04-01] MEDS: TRUSOPT 2% OPHTHALMIC SOLUTION 1 DROP LEFT EYE ×2 (09:57→20:11)
[2025-04-01] MEDS: VISBIOME 1 CAP PO (09:58)
[2025-04-01] MEDS: TIMOPTIC 0.5% OPHTHALMIC SOLUTION 1 DROP LEFT EYE ×2 (09:59→20:12)
[2025-04-01] MEDS: NOVOLOG FLEXPEN SC (10:48)
[2025-04-01 12:45] LABS: Glucose - Point of Care 276 mg/dl (70-99)
[2025-04-01] MEDS: NOVOLOG FLEXPEN-MODERATE RESISTANCE 5 UNITS SC (13:08)
[2025-04-01] MEDS: SODIUM BICARBONATE 50 MEQ IV (13:12)
--- NOTE | 2025-04-01 13:12 | W.PN.HOSP.TC ---
Addendum entered and electronically signed by Graciela Bocanegra MD 04/01/25 14:05:
Sepsis due to Pneumonia with organ dysfunction of Acute hypoxic respiratory failure
Sacrum and buttocks with scattered open areas, some healing stage 2 PI and some appear to be deeper, stage 3 PI with landeros base,
Original Note:
Today's Communication/Plan
-
Continue Antibiotics.
Medically clear for discharge once SNF bed available
Assessment / Plan
Assessment / Plan
Impression :
Mr. Elio Chapman is a 59 yo man with hx IDDM, essential HTN, CKD, PAD s/p left AKA 07/06 and s/p right TMA 01/06 admitted 02/13-02/22 for acute osteomyelitis of right metatarsal amputation (s/p limflow procedure discharged 6 weeks
Vanc/Ertapenem/Fluconazole) admitted again 03/03-03/08 for lethargy, LINDY (s/p correa catheter, IV Vanc changed to IV Daptomycin) and completed antibiotics 03/26/25 then with worsening shortness of breath and hypoxia over the weekend found to have
multifocal pneumonia.
Triage VS: T 97.3, P 102, RR 30, BP 139/71, SpO2 81%
patient required high flow in the ER with increasing oxygen requirements
Patient continued to improve, oxygen weaned to 2 L.
Patient weaned to room air, pulmonology stopped steroid.
Diabetic management consulted.
Assessment/plan:
Multifocal Pneumonia
Flu and COVID negative. Patient with new hypoxia and multifocal pneumonia with symptom onset at the end of prior antibiotic course (Dapto/Ertapenem). Admitted to IMU.
Will discontinue IV Vancomycin with negative MRSA swab
Started on IV Cefepime (previous regimen did not cover Pseudomonas).
Continue Doxycycline for atypical coverage.
So far negative blood cultures and sputum culture.
Continue ICT CUSTOMER SUPPORT OFFICER daily Fluconazole�per ID requires a 6-month course for candidal osteomyelitis.
ID and Pulmonary consulted.
Seen by Speech Therapy who recommended regular diet.
Echocardiogram 03/30 shows:
1. Hyperdynamic left ventricular systolic function with mild left ventricular hypertrophy (septal wall). No left ventricular outflow tract gradient.
2. Dilated right ventricle with normal systolic function.
3. Aortic sclerosis without stenosis.
4. Limited evaluation of the tricuspid valve is normal.
5. There is a protruding echobright non-mobile density in the left ventricular outflow tract just below or at the valve plane most consistent with calcification. If clinical suspicion persists, serial imaging vs CHRISTOPHER can be done in further
evaluation.
04/01
Infectious is recommending to continue Levaquin through April 03, 2025
Follow QTc
Pulmonology discontinued steroid
Discontinue PICC line before discharge
Acute Hypoxic Respiratory Failure secondary to above
Placed on high flow in the ER for drop in oxygen saturations while on 6L.
Weaned down to 6L , now 5 L.
03/31
Continue to improve.
Weaned to 2 Ls
04/01
Patient now on room air
PAD status post left AKA (07/06) and right TMA (01/06)
Osteomyelitis at right TMA amputation site status post 6 weeks IV antibiotics completed 03/26.
Continue ICT [employer]ER SUPPORT OFFICER Aspirin and Prasugrel.
ID consult appreciated.
Patient is due for follow-up with podiatry for possible debridement�could be outpatient, need to wait until acute issues resolve.
Wound care. PT/OT.
NIDDM
Hypoglycemia on AM labs
Glucose 65 03/29 am. resolved
A1c 5.7%.
Hold ICT [employer]ER SUPPORT OFFICER Farxiga given poor PO intake.
Hold Metformin.
ISS low.
04/01
Diabetic management consulted
Hypokalemia
Repleted.
CKD III with baseline creatinine 1.1
LR. Monitor daily.
Metabolic acidosis.
Added bicarb
Essential Hypertension
ICT [employer]ER SUPPORT OFFICER regimen: Amlodipine 10 mg PO QD with hold parameters;
Clonidine 0.15 mg PO QD;
Hydralazine 50 mg PO TID with hold parameters;
Lisinopril 40 mg PO QD�will order � dose for now;
hold ICT C[employer]ER SUPPORT OFFICER HCTZ. Monitor BP and adjust back to home regimen if needed.
Chronic Anemia
Stable
HLD
Continue ICT CUST[employer]ER SUPPORT OFFICER Statin.
Anxiety
Continue ICT CUSTOMER SUPPORT OFFICER Zoloft.
BPH
Continue ICT CUSTOMER SUPPORT OFFICER Flomax.
GI Prophylaxis
Start Protonix as patient is on Aspirin, Prasugrel, and Heparin subQ.
Code Status: Full Code.
DVT Prophylaxis: Heparin subQ.
Diet: Regular diet
Disposition: Continue Antibiotics.
Medically clear for discharge once SNF bed available
Total�time�spent�on�today�s�encounter�was�65�minutes�which�included�time�spent�in�counseling�the�patient/family�regarding�diagnosis�and�treatment�plan�as�listed�above,�goals�of�care,�and�symptom�management.�Case�was�discussed�with�nursing�staff,�spec
ialists,�and�care�coordinators/case�management.�All�labs�and�imaging�personally�reviewed�by�me.�Remainder�the�time�spent�in�detailed�review�of�previous�records,�lab�data,�imaging,�and�other�medical�provider�documentation.
�
Anticipated Discharge: Within 24 hours
Subjective/Interval History
-
Date of Service: April 01, 2025
Patient seen and examined at bedside, patient is more awake, denies any chest pain or shortness of breath, no abdominal pain, no nausea, no vomiting, no diarrhea or constipation
Objective Data
-
Labs:
Laboratory Results
04/01/25
04:01
WBC 15.0 H
Hgb 7.6 L
Hct 22.1 L
Plt Count 704 H
Sodium 134 L
Potassium 3.5
Chloride 110 H
Carbon Dioxide 13 L*
BUN 30 H
Creatinine 0.8
Glucose 186 H
Calcium 9.2
Vital Signs:
Vital Signs
Temp Pulse Resp BP Pulse Ox
97.6 F 92 25 125/67 99
04/01/25 11:55 04/01/25 09:27 04/01/25 06:00 04/01/25 09:27 04/01/25 06:00
I&O
03/31/25 04/01/25 04/02/25
06:59 06:59 06:59
Intake Total 1080 / 1080 720 / 720
Output Total 1850 / 1850 2450 / 2450
Balance -770 / -770 -1730 / -1730
Physical Exam
-
General: Well Developed, Well Nourished, No Apparent Distress and Comfortable
HEENT: Normocephalic, Atraumatic, Moist Mucous Membranes, No Ptosis, PERRLA and Nose Appears Normal
Respiratory: Rales, Rhonchi and Non Labored Respirations
Cardiac: Regular Rhythm and S1/S2
Breast: Deferred by me
GI: Soft, Nontender, Nondistended and Normal Bowel Sounds
Genito-urinary: No Costovertebral Tender
Musculoskeletal: No Clubbing and Other ( (L AKA, R toe amp))
Skin: Warm
Neuro: Awake, Alert, Oriented, AO x 3 and No Motor Deficits
Psych: Calm
[2025-04-01] MEDS: FLUSH (NSS) 2 FLUSH IV (13:13)
--- NOTE | 2025-04-01 13:52 | PN.CDI ---
CDI
- -
CDI:
Physician Documentation Request
Admit Date: 03/28/25 13:38
Dear Doctor Sahra,
03/29 WOCN note states 'Sacrum and buttocks with scattered open areas, some healing stage 2 PI and some appear to be deeper, stage 3 PI with landeros base, ..'
Physician documentation of the type and location of wounds is required for compliant documentation. Based on the above clinical findings and your assessment, please provide the following in your progress note:
1. Location of the ulcer/wound, including laterality.
2. Type (etiology) of ulcer/wound:
- Diabetic ulcer
- Traumatic wound
- Pressure (decubitus) ulcer
- Other
Use of terms such as suspected, likely, concern for, or probable (associated with a specific diagnosis that is being evaluated, monitored, or treated as if it exists) are acceptable and can be coded in the inpatient setting, when documented at the
time of discharge.
Thank you,
Teresita Gutierrez RN BSN
CDI Specialist
tiger text
Please use your independent medical judgment in providing your response.
*Source: National Pressure Ulcer Advisory Panel (NPUAP)
--- NOTE | 2025-04-01 13:55 | PN.CDI ---
CDI
- -
CDI:
Physician Documentation Request
Admit Date: 03/28/25 13:38
Dear ,
[facility] is using an adapted version of the 2016 Third International Consensus Definitions for Sepsis and Septic Shock (Sepsis-3) where sepsis is defined as life threatening organ dysfunction caused by a deregulated host response to infection.
Please reference the official [facility] Sepsis Recognition Tool for further information, which can be found on the Intranet under Infection Prevention.
Clinical Indicators Include:
Progress Notes states Multifocal pneumonia...Acute hypoxic respiratory failure secondary to above....'
Based on your medical judgment, can you further clarify the diagnosis being monitored/treated this admission?
� Sepsis due to Pneumonia with organ dysfunction of Acute hypoxic respiratory failure
� Pneumonia only
� Other
� Clinically unable to determine
Use of terms such as suspected, likely, concern for, or probable (associated with a specific diagnosis that is being evaluated, monitored, or treated as if it exists) are acceptable and can be coded in the inpatient setting when documented at the
time of discharge.
Please use your independent medical judgement in providing your response.
Thank you,
Teresita Gutierrez RN, BSN
CDI Specialist
tiger text
--- NOTE | 2025-04-01 16:17 | CM ---
F/U: Son has not made a decision yet in terms of discharge planning. Son said that a decision could be ready by Friday. Patient not ready yet from Hospitalist. PLAN: TBD
[2025-04-01] MEDS: CRESTOR 20 MG PO (17:42)
[2025-04-01] MEDS: NOVOLOG FLEXPEN-MODERATE RESISTANCE 1 UNITS SC (17:46)
[2025-04-01 17:56] LABS: Glucose - Point of Care 153 mg/dl (70-99)
[2025-04-01 21:19] LABS: Glucose - Point of Care 192 mg/dl (70-99)
[2025-04-01] MEDS: APRESOLINE PO (21:33)
[2025-04-02] VITALS (12 sets, daily range): BP systolic 96–126; BP diastolic 60–72; BMI 26.0
--- NOTE | 2025-04-02 04:44 | PTCARENOTE ---
Pt appearing to get rest over night. Pt vitals stable at this time. Respirations even unlabored at this time, spo2 100% ra. Call walker within reach bed in lowest position.
[2025-04-02 05:14] LABS: Blood Urea Nitrogen 33 mg/dl (9-20); Calcium 9.1 mg/dl (8.4-10.2); Carbon Dioxide 15 mmol/L (22-30); Chloride 110 mmol/L (98-107); Estimated Creatinine Clearance 86 ml/min; Glucose 141 mg/dl (70-99); Potassium 3.1 mmol/L (3.5-5.1); Sodium 136 mmol/L (135-145); eGFR > 60.00
[2025-04-02 05:26] LABS: Hematocrit 22.3 % (39.0-52.0); Hemoglobin 7.6 g/dL (13.0-18.0); Mean Corp Hgb Conc. 34.1 g/dL (33.0-37.0); Mean Corpuscular Volume 84.8 fL (80.0-94.0); Platelet Count 691 10^3/uL (130-400); Red Cell Dist. Width 16.4 % (11.5-14.5)
[2025-04-02 08:19] LABS: Glucose - Point of Care 132 mg/dl (70-99)
[2025-04-02] MEDS: DIFLUCAN 400 MG PO (09:10)
[2025-04-02] MEDS: LANTUS 0.15 UNITS SC (09:10)
[2025-04-02] MEDS: ZOLOFT 25 MG PO (09:10)
[2025-04-02] MEDS: EFFIENT 10 MG PO (09:10)
[2025-04-02] MEDS: VISBIOME 1 CAP PO (09:10)
[2025-04-02] MEDS: ZESTRIL 20 MG PO (09:12)
[2025-04-02] MEDS: CATAPRES 0.1 MG PO (09:12)
[2025-04-02] MEDS: APRESOLINE 50 MG PO ×2 (09:12→22:39)
[2025-04-02] MEDS: PROTONIX 40 MG PO (09:13)
[2025-04-02] MEDS: MUCINEX 600 MG PO ×2 (09:13→20:32)
[2025-04-02] MEDS: LEVAQUIN 750 MG PO (09:13)
[2025-04-02] MEDS: NORVASC 10 MG PO (09:13)
[2025-04-02] MEDS: FLOMAX 0.8 MG PO (09:13)
[2025-04-02] MEDS: NEURONTIN 300 MG PO ×3 (09:13→22:40)
[2025-04-02] MEDS: HEPARIN 5000 UNITS SC ×2 (09:14→20:32)
[2025-04-02] MEDS: LOW STRENGTH ASPIRIN 81 MG PO (09:14)
[2025-04-02] MEDS: TRUSOPT 2% OPHTHALMIC SOLUTION 1 DROP LEFT EYE ×2 (09:15→20:33)
[2025-04-02] MEDS: NOVOLOG FLEXPEN 6 UNITS SC ×3 (09:15→18:10)
[2025-04-02] MEDS: NOVOLOG FLEXPEN-MODERATE RESISTANCE SC ×2 (09:15→18:09)
[2025-04-02] MEDS: ATROPINE SULFATE 1% DROPS 1 DROP LEFT EYE ×2 (09:16→20:33)
[2025-04-02] MEDS: ALPHAGAN 0.2% EYE DROPS 1 DROP LEFT EYE ×2 (09:16→20:33)
[2025-04-02] MEDS: PRED FORTE 1% EYE DROPS 1 DROP LEFT EYE ×4 (09:16→22:40)
--- NOTE | 2025-04-02 09:50 | W.PN.HOSP.TC ---
Today's Communication/Plan
-
see plan
Assessment / Plan
Assessment / Plan
Admission summary: 59 yo man with hx IDDM, essential HTN, CKD, PAD s/p left AKA 07/06 and s/p right TMA 01/06 admitted 02/13-02/22 for acute osteomyelitis of right metatarsal amputation (s/p limflow procedure discharged 6 weeks
Vanc/Ertapenem/Fluconazole) admitted again 03/03-03/08 for lethargy, LINDY (s/p correa catheter, IV Vanc changed to IV Daptomycin) and completed antibiotics 03/26/25 then with worsening shortness of breath and hypoxia over the weekend found to have
multifocal pneumonia.
Gen: NAD, AAOx3.
Eyes: EOMI, PERRLA, no scleral icterus.
Neck: supple.
CV: RRR, +S1/S2, no m/r/g.
Resp: CTAB, no rales, wheezes, or rhonchi.
Abd: +BS, soft, NT, ND
Skin: No rashes.
Neuro: CN 2-12 intact, non-focal.
Psych: Normal mood and affect.
03/28/25 09:28 Blood/Venous Blood Culture - Final
No Growth - Final Report
03/28/25 10:34 Blood/Venous Blood Culture - Preliminary
No Growth in 4 days- Final report to follow
03/28/25 23:31 Nose MRSA Screen - Final
No Methicillin Resistant Staphylococcus aureus isolated.
03/28/25 23:31 Urine Legionella Urinary Antigen - Final
Negative for Legionella pneumophila Serogroup 1 antigen.
A negative result does not rule out the possiblity of
Legionella infection due to other serogroups or species of
Legionella. Clinical correlation is recommended.
03/28/25 23:31 Urine Streptococcus pneumoniae Antigen (M - Final
Negative for Streptococcus pneumoniae antigen.
A negative result does not exclude infection with
Streptococcus pneumoniae. Clinical correlation is
recommended.
03/28/25 10:34 Nasal Swab Influenza Types A & B ([facility]) - Final
Negative for Influenza A & B, NAAT
Negative results must be combined with clinical observations
and patient history.
Nucleic Acid Amplification test (NAAT)performed on the
[employer] NOW platform.
03/28/25 09:28 Nasal Swab Influenza Types A & B ([facility]) - Final
Test repeatedly invalid.
Nucleic Acid Amplification test (NAAT)performed on the
[employer] NOW platform.
Echo 03/30:
1. Hyperdynamic left ventricular systolic function with mild left ventricular hypertrophy (septal wall). No left ventricular outflow tract gradient.
2. Dilated right ventricle with normal systolic function.
3. Aortic sclerosis without stenosis.
4. Limited evaluation of the tricuspid valve is normal.
5. There is a protruding echobright non-mobile density in the left ventricular outflow tract just below or at the valve plane most consistent with calcification. If clinical suspicion persists, serial imaging vs CHRISTOPHER can be done in further
evaluation.
Acute hypoxemic respiratory failure due to multifocal pneumonia:
-Flu/COVID NEG
-was on 6L NC O2, now weaned to RA
-just prior to admission pt had completed a course of Dapto/Ertapenem for OM of R TMA site.
-BCxs NGTD
-was on Cefepime/Doxy, now transitioned to Levaquin through 04/03
-QTc 04/01 429ms
-afebrile, persistent leukocytosis
PAD status post left AKA (07/06) and right TMA (01/06)
-OM at right TMA amputation site status post 6 weeks IV antibiotics (Dapto/Ertapenem) completed 03/26.
-Of note, on Fluconazole for 6 months unless pt has further resection.
-cont ASA/Prasugrel
-for outpt f/u with podiatry for possible debridement
-wound care/PT/OT
DM2:
-a1c 5.7%
-had hypoglycemia, now resolved
-cont Lantus/premeal Novolog
-assistant health educator saw in c/s
Other problems:
Hyponatremia, mild, resolved
Chronic metabolic acidosis: Improving s/p IV NaHCO3, start PO NaHCO3
Hypokalemia: 80meq K today
Essential HTN: cont Norvasc/Clonidine/Hydralazine/Lisinopril
HLD: cont statin
Anemia of chronic disease
Anxiety: cont Zoloft
BPH: cont flomax
FULL/Heparin
Anticipated Discharge: 24 - 48 hours
Subjective/Interval History
-
Date of Service: April 02, 2025
No new complaints.
Objective Data
-
Labs:
Laboratory Results
04/02/25
04:02
WBC 15.2 H
Hgb 7.6 L
Hct 22.3 L
Plt Count 691 H
Sodium 136
Potassium 3.1 L
Chloride 110 H
Carbon Dioxide 15 L
BUN 33 H
Creatinine 1.0
Glucose 141 H
Calcium 9.1
Vital Signs:
Vital Signs
Temp Pulse Resp BP Pulse Ox
97.8 F 84 24 117/67 98
04/02/25 07:39 04/02/25 09:13 04/02/25 06:00 04/02/25 09:13 04/02/25 06:00
I&O
04/01/25 04/02/25 04/03/25
06:59 06:59 06:59
Intake Total 720 / 720 890 / 890
Output Total 2450 / 2450 2800 / 2800
Balance -1730 / -1730 -1909 / -1909
[2025-04-02] MEDS: SODIUM BICARBONATE 650 MG PO ×3 (11:42→22:40)
[2025-04-02] MEDS: KCL 40 MEQ PO ×2 (11:42→16:01)
[2025-04-02] MEDS: TIMOPTIC 0.5% OPHTHALMIC SOLUTION 1 DROP LEFT EYE ×2 (11:42→20:33)
[2025-04-02 12:11] LABS: Glucose - Point of Care 153 mg/dl (70-99)
[2025-04-02] MEDS: NOVOLOG FLEXPEN-MODERATE RESISTANCE 1 UNITS SC (13:19)
[2025-04-02] MEDS: APRESOLINE PO (16:01)
[2025-04-02 17:11] LABS: Glucose - Point of Care 107 mg/dl (70-99)
--- NOTE | 2025-04-02 18:00 | PTCARENOTE ---
Patient less lethargic than yesterday but needs encouragement to participate in feeding self and self care, such as brushing teeth. Pt's mother at bedside this afternoon visiting with son and talking with him regarding discharge plan
[2025-04-02] MEDS: CRESTOR 20 MG PO (18:10)
[2025-04-02 21:43] LABS: Glucose - Point of Care 103 mg/dl (70-99)
[2025-04-03] VITALS (12 sets, daily range): BP systolic 104–130; BP diastolic 59–75; BMI 25.7
[2025-04-03] MEDS: DULCOLAX 10 MG RECTAL (01:34)
[2025-04-03 07:55] LABS: Glucose - Point of Care 99 mg/dl (70-99)
--- NOTE | 2025-04-03 08:00 | PTCARENOTE ---
Received pt. @ change of shift. Pt. drowsy/lethargic; opens eyes to verbal stim; ox2; required reorientation to time; flat/withdrawn; visual deficits. SR on monitor. SpO2 100 % on RA. Auscultated dim breath sounds posteriorly. Pt. educated on
importance of coughing/deep breathing; nods in understanding. +BS, abd round/obese; tolerating meals. Inc mx BMs this AM. Chronic correa in place draining wendy urine. Mx wound dressings intact. R DL PICC patent, dressing c/d/i. Pt. instructed on
how to report care concerns and call walker placed w in reach. Bed alarm active.
--- NOTE | 2025-04-03 08:10 | W.PN.HOSP.TC ---
Today's Communication/Plan
-
see plan
Assessment / Plan
Assessment / Plan
Admission summary: 59 yo man with hx IDDM, essential HTN, CKD, PAD s/p left AKA 07/06 and s/p right TMA 01/06 admitted 02/13-02/22 for acute osteomyelitis of right metatarsal amputation (s/p limflow procedure discharged 6 weeks
Vanc/Ertapenem/Fluconazole) admitted again 03/03-03/08 for lethargy, LINDY (s/p correa catheter, IV Vanc changed to IV Daptomycin) and completed antibiotics 03/26/25 then with worsening shortness of breath and hypoxia over the weekend found to have
multifocal pneumonia.
Gen: NAD, AAOx3.
Eyes: EOMI, PERRLA, no scleral icterus.
Neck: supple.
CV: RRR, +S1/S2, no m/r/g.
Resp: CTAB, no rales, wheezes, or rhonchi.
Abd: +BS, soft, NT, ND
Skin: No rashes.
Neuro: CN 2-12 intact, non-focal.
Psych: Normal mood and affect.
03/28/25 10:34 Blood/Venous Blood Culture - Final
No Growth - Final Report
03/28/25 09:28 Blood/Venous Blood Culture - Final
No Growth - Final Report
03/28/25 23:31 Nose MRSA Screen - Final
No Methicillin Resistant Staphylococcus aureus isolated.
03/28/25 23:31 Urine Legionella Urinary Antigen - Final
Negative for Legionella pneumophila Serogroup 1 antigen.
A negative result does not rule out the possiblity of
Legionella infection due to other serogroups or species of
Legionella. Clinical correlation is recommended.
03/28/25 23:31 Urine Streptococcus pneumoniae Antigen (M - Final
Negative for Streptococcus pneumoniae antigen.
A negative result does not exclude infection with
Streptococcus pneumoniae. Clinical correlation is
recommended.
03/28/25 10:34 Nasal Swab Influenza Types A & B ([facility]) - Final
Negative for Influenza A & B, NAAT
Negative results must be combined with clinical observations
and patient history.
Nucleic Acid Amplification test (NAAT)performed on the
[employer] NOW platform.
03/28/25 09:28 Nasal Swab Influenza Types A & B ([facility]) - Final
Test repeatedly invalid.
Nucleic Acid Amplification test (NAAT)performed on the
[employer] NOW platform.
Echo 03/30:
1. Hyperdynamic left ventricular systolic function with mild left ventricular hypertrophy (septal wall). No left ventricular outflow tract gradient.
2. Dilated right ventricle with normal systolic function.
3. Aortic sclerosis without stenosis.
4. Limited evaluation of the tricuspid valve is normal.
5. There is a protruding echobright non-mobile density in the left ventricular outflow tract just below or at the valve plane most consistent with calcification. If clinical suspicion persists, serial imaging vs CHRISTOPHER can be done in further
evaluation.
Acute hypoxemic respiratory failure due to multifocal pneumonia:
-Flu/COVID NEG
-was on 6L NC O2, now weaned to RA
-just prior to admission pt had completed a course of Dapto/Ertapenem for OM of R TMA site.
-BCxs NGTD
-was on Cefepime/Doxy, now transitioned to Levaquin through 04/03
-QTc 04/01 429ms
-afebrile, persistent leukocytosis
PAD status post left AKA (07/06) and right TMA (01/06)
-OM at right TMA amputation site status post 6 weeks IV antibiotics (Dapto/Ertapenem) completed 03/26.
-Of note, on Fluconazole for 6 months unless pt has further resection.
-cont ASA/Prasugrel
-for outpt f/u with podiatry for possible debridement
-wound care/PT/OT
-leukocytosis worsening, check MRI R foot, c/s podiatry
-discussed with Dr. Comer
DM2:
-a1c 5.7%
-had hypoglycemia, now resolved
-cont Lantus/premeal Novolog
-life skills educator saw in c/s
Other problems:
Hyponatremia, mild, resolved
Chronic metabolic acidosis: Improving s/p IV NaHCO3, start PO NaHCO3
Hypokalemia: 40meq K today for K 3.5
Essential HTN: cont Norvasc/Clonidine/Hydralazine/Lisinopril
HLD: cont statin
Anemia of chronic disease
Anxiety: cont Zoloft
BPH: cont flomax
FULL/Heparin
Anticipated Discharge: > 48 hours
Subjective/Interval History
-
Date of Service: April 03, 2025
Objective Data
-
Vital Signs:
Vital Signs
Temp Pulse Resp BP Pulse Ox
97.3 F 79 20 104/59 98
04/03/25 07:00 04/03/25 02:00 04/03/25 02:00 04/03/25 02:00 04/03/25 02:00
I&O
04/02/25 04/03/25 04/04/25
06:59 06:59 06:59
Intake Total 890 / 890 1280 / 1280
Output Total 2800 / 2800 2525 / 2525
Balance -1910 / -1910 -1245 / -1245
[2025-04-03] MEDS: LEVAQUIN 750 MG PO (08:34)
[2025-04-03] MEDS: CATAPRES 0.1 MG PO (08:34)
[2025-04-03] MEDS: LANTUS 0.15 UNITS SC (08:34)
[2025-04-03] MEDS: HEPARIN 5000 UNITS SC ×2 (08:34→20:26)
[2025-04-03] MEDS: EFFIENT 10 MG PO (08:34)
[2025-04-03] MEDS: APRESOLINE 50 MG PO ×3 (08:35→21:57)
[2025-04-03] MEDS: LOW STRENGTH ASPIRIN 81 MG PO (08:35)
[2025-04-03] MEDS: MUCINEX 600 MG PO ×2 (08:35→20:26)
[2025-04-03] MEDS: DIFLUCAN 400 MG PO (08:35)
[2025-04-03] MEDS: NEURONTIN 300 MG PO ×3 (08:35→21:57)
[2025-04-03] MEDS: SODIUM BICARBONATE 650 MG PO ×3 (08:35→21:57)
[2025-04-03] MEDS: PROTONIX 40 MG PO (08:35)
[2025-04-03] MEDS: ZESTRIL 20 MG PO (08:35)
[2025-04-03] MEDS: FLOMAX 0.8 MG PO (08:35)
[2025-04-03] MEDS: VISBIOME 1 CAP PO (08:35)
[2025-04-03] MEDS: ZOLOFT 25 MG PO (08:35)
[2025-04-03] MEDS: NORVASC 10 MG PO (08:36)
[2025-04-03] MEDS: ALPHAGAN 0.2% EYE DROPS 1 DROP LEFT EYE ×2 (08:37→20:28)
[2025-04-03] MEDS: PRED FORTE 1% EYE DROPS 1 DROP LEFT EYE ×4 (08:37→21:58)
[2025-04-03] MEDS: ATROPINE SULFATE 1% DROPS 1 DROP LEFT EYE ×2 (08:37→20:27)
[2025-04-03] MEDS: TIMOPTIC 0.5% OPHTHALMIC SOLUTION 1 DROP LEFT EYE ×2 (08:38→20:28)
[2025-04-03] MEDS: TRUSOPT 2% OPHTHALMIC SOLUTION 1 DROP LEFT EYE ×2 (08:38→20:28)
[2025-04-03 09:16] LABS: Hematocrit 23.0 % (39.0-52.0); Hemoglobin 7.7 g/dL (13.0-18.0); Mean Corp Hgb Conc. 33.5 g/dL (33.0-37.0); Mean Corpuscular Volume 86.5 fL (80.0-94.0); Platelet Count 646 10^3/uL (130-400); Red Cell Dist. Width 17.1 % (11.5-14.5)
[2025-04-03 09:22] LABS: Blood Urea Nitrogen 28 mg/dl (9-20); Calcium 9.1 mg/dl (8.4-10.2); Carbon Dioxide 17 mmol/L (22-30); Chloride 114 mmol/L (98-107); Estimated Creatinine Clearance 107 ml/min; Glucose 110 mg/dl (70-99); Potassium 3.5 mmol/L (3.5-5.1); Sodium 138 mmol/L (135-145); eGFR > 60.00
[2025-04-03] MEDS: NOVOLOG FLEXPEN 6 UNITS SC ×3 (10:09→18:07)
[2025-04-03] MEDS: NOVOLOG FLEXPEN-MODERATE RESISTANCE SC ×2 (10:10→18:07)
[2025-04-03] MEDS: KCL 40 MEQ PO (12:27)
[2025-04-03 12:49] LABS: Glucose - Point of Care 151 mg/dl (70-99)
--- NOTE | 2025-04-03 13:27 | W.PN.ID1 ---
Date of Service
Date of Service: April 03, 2025
Today's Communication
- Doubt R foot is salvageable.
- Agree with podiatry consult
- Follow WBC. If continues to trend up, low threshold to start abx.
Assessment / Plan
# Leukocytosis trending up - suspect progressive necrotic non-healing R foot TMA source
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
- ongoing probe to bone medially approximately over the 2nd and 3rd metatarsal shafts
- recently completed 6 weeks of IV daptomycin and ertapenem, Picc still in place.
- unless there is further resection to continue fluconazole 400 mg PO qday to 6 months 02/17-08/17/[address] Boucher
- monthly LFT check
- QTcB 400 - acceptable
- Doubt R foot is salvageable.
- Agree with podiatry consult
- Follow WBC. If continues to trend up, low threshold to start abx.
#Community Acquired Pneumonia
#Acute Respiratory Failure resolved
- not able to produce a sputum, now on room air
- blood cultures x2 are in progress NGTD
- completed levofloxacin x 7 day total course 03/28-04/03
- dexamethasone taper per pulmonary
#Lesion on LVOT most consistent with calcification
- 03/28 blood cultures x2 no growth at 4 days
- just finished a 6 week course of daptomycin and ertapenem, concern for endocarditis is low
- no need for further workup at this time
Chief Complaint
-: Pneumonia and Other (osteomyelitis)
Subjective / Review of Systems
SOB minimal. No cough.
Vital Signs / Physical Exam
Vital Signs
Vital Signs
Temp Pulse Resp BP Pulse Ox
97.3 F 91 20 118/75 100
04/03/25 11:12 04/03/25 08:36 04/03/25 02:00 04/03/25 08:36 04/03/25 13:21
Physical Exam
Constitutional: No Acute Distress
Eyes: No Conjunctival Hemorrhage and Sclera Anicteric
Cardiovascular: Regular Rate, S1/S2 and Rub
Pulmonary: Coarse
Gastrointestinal: Soft, Non Tender, Non Distended and Normal Bowel Sounds
Extremities: Negative Edema
Wound: Other (Entire R TMA site necrotic. Right heel wound necrotic.)
Neurological: AO x 3
Objective Data
Lab Data
Lab Results
04/03/25 08:58
04/03/25 08:58
Estimated Creat Clear 107 ml/min 04/03/25 08:58
Lactic Acid 0.9 mmol/L (0.7-2.0) 03/28/25 09:29
Total Bilirubin 0.6 mg/dl (0.2-1.3) 03/28/25 09:28
AST 84 U/L (17-59) H 03/28/25 09:28
ALT 79 U/L (0-50) H 03/28/25 09:28
Alkaline Phosphatase 174 U/L (38-126) H 03/28/25 09:28
Most recent labs reviewed.
Micro Results:
03/28/25 10:34 Blood Culture - Final
Blood/Venous No Growth - Final Report
03/28/25 09:28 Blood Culture - Final
Blood/Venous No Growth - Final Report
03/28/25 23:31 MRSA Screen - Final
Nose No Methicillin Resistant Staphylococcus aureus isolated.
03/28/25 23:31 Legionella Urinary Antigen - Final
Urine Negative for Legionella pneumophila Serogroup 1 antigen.
A negative result does not rule out the possiblity of
Legionella infection due to other serogroups or species of
Legionella. Clinical correlation is recommended.
Streptococcus pneumoniae Antigen (M - Final
Negative for Streptococcus pneumoniae antigen.
A negative result does not exclude infection with
Streptococcus pneumoniae. Clinical correlation is
recommended.
03/28/25 10:34 Influenza Types A & B ([facility]) - Final
Nasal Swab Negative for Influenza A & B, NAAT
Negative results must be combined with clinical observations
and patient history.
Nucleic Acid Amplification test (NAAT)performed on the
[employer] NOW platform.
03/28/25 09:28 Influenza Types A & B ([facility]) - Final
Nasal Swab Test repeatedly invalid.
Nucleic Acid Amplification test (NAAT)performed on the
[employer] NOW platform.
Care Review
Plan reviewed with: Physician (Dr. Beasley)
[2025-04-03] MEDS: NOVOLOG FLEXPEN-MODERATE RESISTANCE 1 UNITS SC (14:11)
--- NOTE | 2025-04-03 16:48 | W.CS.POD ---
Consult Summary - Podiatry
-
59-year-old male known to me for the last 6 months, started with right big toe gangrene and had right hallux amputation in 2024, which failed healing and that led to partial first ray amputation in 12/05/24 and eventually led to
transmetatarsal amputation 2024 which has ended with complete wound dehiscence so vascular surgery attempted Limflow procedure as a last limb salvage effort on 02/17/2025, he was also on IV abx till 03/26/25, Patient was in rehab and was
discharged to rehab, he has been admitted with pneumonia and high WBC count at 23
His Right TMA site with necrotic wound, which is mostly dry in nature with scant pus noted. He denies any SOB, he is in no acute distress. Right foot with minimal edema, no foul odor.
Exam: Right foot TMA site with dry necrotic edges, scant purulent drainage noted, no foul odor
Wound probing deep to the bone, complete wound dehiscence noted at TMA site.
White blood cell count at 23.6
Right foot x-ray shows osteolysis at the edges of the resected surgical metatarsal sites 1 -4 and possible osteomyelitis at 1st metatarsal resected site
Assessment and plan: Infected rt TMA wound with large necrotic area.
Severe PAD with Recent LT BKA in 09/2024.
Type 2 diabetes
Plan : Patient evaluated at bedside
Will schedule him Rt foot debridement to control the source of suspected leukocytosis.
Possible wound VAC after debridement TMA site
D/W Hosp service .
D/W patient about debridement of Rt TMA on 04/04/25 to control the source of infection.
Possible wound VAC discussed , patient agreed with the plan.
Non healing, bone infection and wound dehiscence, No guarantees given to save his limb, Patient does understand his situation.
Podiatry will follow
--- NOTE | 2025-04-03 17:29 | W.PN.UPDATE ---
Update Note
Progress Note Update
Case reviewed with Dr. Heath. She plans to take the patient to the OR tomorrow for R TMA debridement. Currently the patient is medically optimized for the OR, especially considering the urgency of this procedure. I recommend proceeding to
the OR without any further cardiovascular testing.
[2025-04-03 17:37] LABS: Glucose - Point of Care 89 mg/dl (70-99)
[2025-04-03] MEDS: CRESTOR 20 MG PO (18:07)
[2025-04-03 21:30] LABS: Glucose - Point of Care 107 mg/dl (70-99)
[2025-04-04] VITALS (22 sets, daily range): BP systolic 14–131; BP diastolic 59–71; BMI 25.9
[2025-04-04 06:24] LABS: Blood Urea Nitrogen 24 mg/dl (9-20); Calcium 9.0 mg/dl (8.4-10.2); Carbon Dioxide 17 mmol/L (22-30); Chloride 113 mmol/L (98-107); Estimated Creatinine Clearance 123 ml/min; Glucose 113 mg/dl (70-99); Potassium 3.9 mmol/L (3.5-5.1); Sodium 138 mmol/L (135-145); eGFR > 60.00
[2025-04-04 06:34] LABS: Hematocrit 21.1 % (39.0-52.0); Hemoglobin 7.3 g/dL (13.0-18.0); Mean Corp Hgb Conc. 34.6 g/dL (33.0-37.0); Mean Corpuscular Volume 86.1 fL (80.0-94.0); Platelet Count 596 10^3/uL (130-400); Red Cell Dist. Width 16.6 % (11.5-14.5)
[2025-04-04 07:33] LABS: Glucose - Point of Care 118 mg/dl (70-99)
[2025-04-04] MEDS: PROTONIX 40 MG PO (08:35)
[2025-04-04] MEDS: APRESOLINE 50 MG PO ×3 (08:35→21:27)
[2025-04-04] MEDS: NORVASC 10 MG PO (08:35)
[2025-04-04] MEDS: ZESTRIL 20 MG PO (08:35)
[2025-04-04] MEDS: DIFLUCAN 400 MG PO (08:35)
[2025-04-04] MEDS: CATAPRES 0.1 MG PO (08:35)
[2025-04-04] MEDS: SODIUM BICARBONATE 650 MG PO ×3 (08:35→21:28)
[2025-04-04] MEDS: NOVOLOG FLEXPEN-MODERATE RESISTANCE SC ×2 (08:35→12:03)
[2025-04-04] MEDS: NOVOLOG FLEXPEN SC (08:35)
[2025-04-04] MEDS: MUCINEX 600 MG PO ×2 (08:36→20:39)
[2025-04-04] MEDS: ZOLOFT 25 MG PO (08:36)
[2025-04-04] MEDS: FLOMAX 0.8 MG PO (08:36)
[2025-04-04] MEDS: NEURONTIN 300 MG PO ×3 (08:36→21:28)
[2025-04-04] MEDS: PRED FORTE 1% EYE DROPS 1 DROP LEFT EYE ×4 (08:37→21:34)
[2025-04-04] MEDS: VISBIOME 1 CAP PO (08:37)
[2025-04-04] MEDS: TRUSOPT 2% OPHTHALMIC SOLUTION 1 DROP LEFT EYE ×2 (08:37→20:48)
[2025-04-04] MEDS: ATROPINE SULFATE 1% DROPS 1 DROP LEFT EYE ×2 (08:38→20:39)
[2025-04-04] MEDS: TIMOPTIC 0.5% OPHTHALMIC SOLUTION 1 DROP LEFT EYE ×2 (08:38→21:27)
[2025-04-04] MEDS: ALPHAGAN 0.2% EYE DROPS 1 DROP LEFT EYE ×2 (08:38→19:55)
[2025-04-04] MEDS: LANTUS 0.15 UNITS SC (08:38)
--- NOTE | 2025-04-04 09:02 | W.PN.ID1 ---
Date of Service
Date of Service: April 04, 2025
Today's Communication
- restart antibiotics (zosyn, vancomycin) post debridement this evening, continue fluconazole at this time, durations TBD pending OR cultures/pathology/OR findings
- tiger texted dr portillo to update her on plan for repeat imaging, also requesting margin cultures and pathology
Assessment / Plan
# Leukocytosis trending up - suspect progressive necrotic non-healing R foot TMA source
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
- steroids discontinued 04/01, leukocytosis continued to trend up through the weekend
- ongoing probe to bone medially approximately over the 1st-3rd metatarsal shafts
- recently completed 6 weeks of IV daptomycin and ertapenem
- maintain PICC at this time
- agree with Dr Comer that I doubt R foot is salvageable
- last imaging is Xray from prior to 6 week course of IV antibiotics and antifungals; reimage today prior to the OR, MRI if possible, if not Xray
- restart antibiotics (zosyn, vancomycin) post debridement this evening, continue fluconazole at this time, durations TBD pending OR cultures/pathology/OR findings
- tiger texted dr portillo to update her on plan for repeat imaging, also requesting margin cultures and pathology
#Community Acquired Pneumonia
#Acute Respiratory Failure resolved
- completed levofloxacin x 7 day total course 03/28-04/03
#Lesion on LVOT most consistent with calcification
- 03/28 blood cultures x2 no growth at 4 days
- just finished a 6 week course of daptomycin and ertapenem, concern for endocarditis is low
- no need for further workup at this time
Chief Complaint
-: Pneumonia and Other (osteomyelitis, dry gangrene)
Subjective / Review of Systems
afebrile
bp stable
no events overnight
to the OR today for R TMA debridement
Vital Signs / Physical Exam
Vital Signs
Vital Signs
Temp Pulse Resp BP Pulse Ox
98.1 F 93 22 119/65 99
04/04/25 07:18 04/04/25 06:00 04/04/25 06:00 04/04/25 06:00 04/03/25 20:00
Physical Exam
Constitutional: No Acute Distress and Chronically Ill
Cardiovascular: Regular Rate and S1/S2; Negative Murmur or Rub
Pulmonary: Clear and Symmetric; Negative Wheezes or Rales
Gastrointestinal: Soft, Non Tender, Non Distended and Normal Bowel Sounds
Skin: Warm, Dry and Other (superficial wounds on the buttocks, no surrounding erythema, warmth or drainage); Negative Rash or Jaundice
Wound: Other (dry eschar over the right heel; stable eschar surrounding dehisced right TMA site, no purulence today, probe to bone at approximately 1-3 metatarsals no surrounding erythema, warmth or drainage)
Neurological: Awake
Lines: PIV and PICC
Objective Data
Lab Data
Lab Results
04/04/25 05:46
04/04/25 05:46
Estimated Creat Clear 123 ml/min 04/04/25 05:46
Lactic Acid 0.9 mmol/L (0.7-2.0) 03/28/25 09:29
Total Bilirubin 0.6 mg/dl (0.2-1.3) 03/28/25 09:28
AST 84 U/L (17-59) H 03/28/25 09:28
ALT 79 U/L (0-50) H 03/28/25 09:28
Alkaline Phosphatase 174 U/L (38-126) H 03/28/25 09:28
Most recent labs reviewed.
Micro Results:
03/28/25 10:34 Blood Culture - Final
Blood/Venous No Growth - Final Report
03/28/25 09:28 Blood Culture - Final
Blood/Venous No Growth - Final Report
03/28/25 23:31 MRSA Screen - Final
Nose No Methicillin Resistant Staphylococcus aureus isolated.
03/28/25 23:31 Legionella Urinary Antigen - Final
Urine Negative for Legionella pneumophila Serogroup 1 antigen.
A negative result does not rule out the possiblity of
Legionella infection due to other serogroups or species of
Legionella. Clinical correlation is recommended.
Streptococcus pneumoniae Antigen (M - Final
Negative for Streptococcus pneumoniae antigen.
A negative result does not exclude infection with
Streptococcus pneumoniae. Clinical correlation is
recommended.
03/28/25 10:34 Influenza Types A & B ([facility]AY) - Final
Nasal Swab Negative for Influenza A & B, NAAT
Negative results must be combined with clinical observations
and patient history.
Nucleic Acid Amplification test (NAAT)performed on the
[employer] NOW platform.
03/28/25 09:28 Influenza Types A & B ([facility]CKAY) - Final
Nasal Swab Test repeatedly invalid.
Nucleic Acid Amplification test (NAAT)performed on the
[employer] NOW platform.
Care Review
Plan reviewed with: Physician (Dr Beasley and Kumar - imaging, culture/path request)
--- NOTE | 2025-04-04 09:09 | PN.DE.MGMTRT ---
Insulin Management
- -
04/04/2025: Diabetes Management follow up
59 year old male with PMH: HTN, HLD, NIDDM, PAD s/p L AKA 07/06, osteomyelitis of right TMA 01/06, limb flow procedure 02/17/25 with underlying osteomyelitis. Patient presented to [facility] ED on 03/29 with progressive shortness of breath and nonproductive
cough. CXR/CT obtained indicating bilateral infiltrates concerning for multifocal pneumonia. Patient is well known to diabetes service, diabetes consult requested today for uncontrolled glucose.
He was initially mildly hypoglycemic but was started on IV steroids contributing to Hyperglycemia.
He was taking Farxiga 10mg daily and Metformin 750mg daily prior to admission, both were held on admission. A1C is 5.4%, Cr 0.9, eGFR >60,
Patient resting in bed, appears very depressed with flat affect. Mom at bedside, states she is very concerned that pt is very depressed and it has not been addressed, communicated with both nurse and hospitalist and requested for psych eval.
Steroids were discontinued on 04/01, glucose has improved. Pt noted for very poor appetite, with little to no food consumption. He is NPO today for OR.
HS Glucose was 107, fasting 113 V, 118 POC today. He is ordered Lantus 15 units daily in AM and AC NovoLog 6 units with corrective insulin.
Will discontinue AC NovoLog now that he is off steroids. Pt had MRI with contrast today, so not safe to resume MFM today.
Will reduce Lantus dose to 8 units daily in AM and change from moderate to low corrective with meals.
Will resume his metformin and Farxiga on 04/06.
Discussed with Nurse. Will cont to follow.
Diabetes History
- -
Type of Diabetes: 2 requiring insulin
Pre-Admission Diabetes Regimen
04/03/25 04/04/25
08:58 05:46
Creatinine 0.8 0.7
Lab Results
Hemoglobin A1c 5.4 % (4.0-5.9) 12/16/25 04:58
Insulin Pump Settings
IP Diabetes Regimen
04/03/25 04/03/25 04/03/25
08:58 12:37 17:25
Glucose 110 H
POC Glucose 151 H 89
04/03/25 04/04/25 04/04/25
21:18 05:46 07:22
Glucose 113 H
POC Glucose 107 H 118 H
Meal type: Breakfast
Amount consumed: 75%
Patient Education
--- NOTE | 2025-04-04 09:18 | W.PN.HOSP.TC ---
Today's Communication/Plan
-
see plan
Assessment / Plan
Assessment / Plan
Admission summary: 59 yo man with hx IDDM, essential HTN, CKD, PAD s/p left AKA 07/06 and s/p right TMA 01/06 admitted 02/13-02/22 for acute osteomyelitis of right metatarsal amputation (s/p limflow procedure discharged 6 weeks
Vanc/Ertapenem/Fluconazole) admitted again 03/03-03/08 for lethargy, LINDY (s/p correa catheter, IV Vanc changed to IV Daptomycin) and completed antibiotics 03/26/25 then with worsening shortness of breath and hypoxia over the weekend found to have
multifocal pneumonia.
Gen: NAD, AAOx3.
Eyes: EOMI, PERRLA, no scleral icterus.
Neck: supple.
CV: remains RRR, +S1/S2, no m/r/g.
Resp: CTAB anteriorly, no rales, wheezes, or rhonchi.
Abd: remains +BS, soft, NT, ND
Skin: No rashes.
Neuro: CN 2-12 intact, non-focal.
Psych: Normal mood and affect.
03/28/25 10:34 Blood/Venous Blood Culture - Final
No Growth - Final Report
03/28/25 09:28 Blood/Venous Blood Culture - Final
No Growth - Final Report
03/28/25 23:31 Nose MRSA Screen - Final
No Methicillin Resistant Staphylococcus aureus isolated.
03/28/25 23:31 Urine Legionella Urinary Antigen - Final
Negative for Legionella pneumophila Serogroup 1 antigen.
A negative result does not rule out the possiblity of
Legionella infection due to other serogroups or species of
Legionella. Clinical correlation is recommended.
03/28/25 23:31 Urine Streptococcus pneumoniae Antigen (M - Final
Negative for Streptococcus pneumoniae antigen.
A negative result does not exclude infection with
Streptococcus pneumoniae. Clinical correlation is
recommended.
03/28/25 10:34 Nasal Swab Influenza Types A & B ([facility]) - Final
Negative for Influenza A & B, NAAT
Negative results must be combined with clinical observations
and patient history.
Nucleic Acid Amplification test (NAAT)performed on the
[employer] ID NOW platform.
03/28/25 09:28 Nasal Swab Influenza Types A & B ([facility]) - Final
Test repeatedly invalid.
Nucleic Acid Amplification test (NAAT)performed on the
[employer] NOW platform.
Echo 03/30:
1. Hyperdynamic left ventricular systolic function with mild left ventricular hypertrophy (septal wall). No left ventricular outflow tract gradient.
2. Dilated right ventricle with normal systolic function.
3. Aortic sclerosis without stenosis.
4. Limited evaluation of the tricuspid valve is normal.
5. There is a protruding echobright non-mobile density in the left ventricular outflow tract just below or at the valve plane most consistent with calcification. If clinical suspicion persists, serial imaging vs CHRISTOPHER can be done in further
evaluation.
Acute hypoxemic respiratory failure due to multifocal pneumonia:
-Flu/COVID NEG
-was on 6L NC O2, now weaned to RA
-just prior to admission pt had completed a course of Dapto/Ertapenem for OM of R TMA site.
-BCxs NGTD
-was on Cefepime/Doxy, now transitioned to Levaquin through 04/03
-QTc 04/01 429ms
-afebrile, persistent leukocytosis
PAD status post left AKA (07/06) and right TMA (01/06)
-OM at right TMA amputation site status post 6 weeks IV antibiotics (Dapto/Ertapenem) completed 03/26.
-Of note, on Fluconazole for 6 months unless pt has further resection.
-cont ASA/Prasugrel
-for outpt f/u with podiatry for possible debridement
-wound care/PT/OT
-Podiatry taking the pt to OR today for R TMA debridement
DM2:
-a1c 5.7%
-had hypoglycemia, now resolved
-cont Lantus/premeal Novolog
-wafer abrading machine tender saw in c/s
Other problems:
Hyponatremia, mild, resolved
Chronic metabolic acidosis: Improving s/p IV NaHCO3, start PO NaHCO3
Hypokalemia: 40meq K today for K 3.5
Essential HTN: cont Norvasc/Clonidine/Hydralazine/Lisinopril
HLD: cont statin
Anemia of chronic disease
Anxiety: cont Zoloft
BPH: cont flomax
FULL/Heparin
Anticipated Discharge: > 48 hours
Subjective/Interval History
-
Date of Service: April 04, 2025
No new complaints.
Objective Data
-
Labs:
Laboratory Results
04/04/25
05:46
WBC 23.8 H
Hgb 7.3 L
Hct 21.1 L
Plt Count 596 H
Sodium 138
Potassium 3.9
Chloride 113 H
Carbon Dioxide 17 L
BUN 24 H
Creatinine 0.7
Glucose 113 H
Calcium 9.0
Vital Signs:
Vital Signs
Temp Pulse Resp BP Pulse Ox
98.1 F 93 22 119/65 99
04/04/25 07:18 04/04/25 06:00 04/04/25 06:00 04/04/25 06:00 04/03/25 20:00
I&O
04/03/25 04/04/25 04/05/25
06:59 06:59 06:59
Intake Total 1280 / 1280 680 / 680
Output Total 2525 / 2525 2150 / 2150
Balance -1245 / -1245 -1470 / -1470
--- NOTE | 2025-04-04 10:51 | PTCARENOTE ---
assumed care at 0700. AOx3, flat affect. VSS. NSR on telemetry, HR 90s. CHG completed preoperatively. Currently off unit for MRI.
--- NOTE | 2025-04-04 10:55 | PHA.VAN.IN ---
Assessment
- Assessment
Renal Function: Appears similar to baseline
Maximum Temperature: 98.1F
Minimum Temperature: 97.3F
Concomitant Antimicrobials: Fluconazole, Zosyn
- Previous Dosing Experience
Previous Regimen: 1500MG Q24H
Date of Regimen: December 2024
Provided Trough of: 12.2
Provided AUC of: 444
Patient's SCR is: Similar to previous dosing experience
Patient's weight is: Decreased compared to previous dosing experience (Current weight 84.1 kg, weight for previous regimen 103.51 kg)
AUC Dosing Plan
- Empiric Dosing
Initial / Loading Dose: 2000MG
Maintenance Regimen: 1250MG Q24H
- Monitoring
No levels ordered at this time: Awaiting steady state
Pharmacokinetics Vancomycin I
- -
Patient Age: 59
Patient Sex: Male
Vancomycin Day #: 1
Indication: Bone And Joint
Requesting Provider: Dr. Boucher
Pertinent Antimicrobial Allergies:
no pertinent antimicrobial allergies
Height / Weight:
Height 5 ft 11 in
Actual Weight 84.1 kg
Pertinent Past Medical History: DM 2, PAD, L. AKA, R. TMA
- Vital Signs / Lab Results
Temp Pulse Resp BP Pulse Ox
98.1 F 95 15 131/69 99
04/04/25 07:18 04/04/25 08:34 04/04/25 08:34 04/04/25 08:34 04/03/25 20:00
Lab Results - Hematology
04/02/25 04/03/25 04/04/25
04:02 08:58 05:46
WBC 15.2 H 23.6 H 23.8 H
Lab Results - Chemistry
04/02/25 04/03/25 04/04/25
04:02 08:58 05:46
BUN 33 H 28 H 24 H
Creatinine 1.0 0.8 0.7
Estimated Creat Clear 86 107 123
Microbiology Results
03/28/25 10:34 Blood Culture - Final
Blood/Venous No Growth - Final Report
03/28/25 09:28 Blood Culture - Final
Blood/Venous No Growth - Final Report
--- NOTE | 2025-04-04 11:48 | PHANOTE ---
Vancomycin Update Note
Per Dr. Boucher (ID), patient to begin vancomycin after R TMA debridement procedure today (8PM start). Rescheduled vancomycin loading dose for this time and placed random level for 04/05/25 @0600 to assess whether we could begin maintenance dosing
at that time. Of note, patient does not follow population kinetics for vancomycin - we will follow him closely to ensure appropriate dosing of vancomycin.
Terri Velez, PharmD, BCCCP
[2025-04-04] MEDS: HEPARIN 5000 UNITS SC ×2 (12:02→20:38)
[2025-04-04] MEDS: LOW STRENGTH ASPIRIN 81 MG PO (12:03)
[2025-04-04] MEDS: EFFIENT 10 MG PO (12:03)
[2025-04-04 12:04] LABS: Glucose - Point of Care 118 mg/dl (70-99)
--- NOTE | 2025-04-04 12:56 | CM ---
F/U: Patient has gangrene of his big tow in the summer now progressed to needing a him Rt foot debridement to control the source of suspected leukocytosis tomorrow, possible wound VAC after debridement TMA site. Son has not made a decision of
placement, will follow up. PLAN: Anticipate SNF to LTC
--- NOTE | 2025-04-04 13:24 | PTCARENOTE ---
During daily suicide risk screening, patient answered 'yes' to wishing he could fall asleep and not wake up, but denies active thoughts or plan, and denies previous attempts in his lifetime. He reports his son gives him the will to live but the past
year has been very hard on him given his current health status. Per C-SSRS, this scores patient as 'Low Risk' and no further action was warranted per protocol. Patient's mother, Capri, at bedside, requesting a psych consult. Dr. Beasley made aware of
this request, as well as the results of today's C-SSRS. 1:1 observation ordered and psych consulted.
--- NOTE | 2025-04-04 16:55 | W.SUR.POST ---
Surgical Immediate Post Op
Note
Pre Op Diagnosis: Right foot necrotic wound at trans metatarsal amputation site, osteomyelitis Rt foot 1, 5th distal metatarsals
Post Op Diagnosis: Same as above
Procedure Performed: Right foot debridement with bone culture form Rt 1st metatarsal
Primary Surgeon: Dr. Vivien Heath
Secondary Surgeons: None
Anesthesia: MAC with local block
Estimated Blood Loss: 10cc's
Fluids: none
Drains/Shunts: none
Specimens/Cultures: Aerobic and anaerobic cultures with Bone culture from Rt 1st metatarsal
Doppler/Duplex/Angio (Y/N): n
Complications: None
Operative Findings: No deep tissue purulence noted, surgical flaps with healthy bleeding
[2025-04-04 17:08] LABS: Glucose - Point of Care 106 mg/dl (70-99)
[2025-04-04] MEDS: NOVOLOG FLEXPEN-LOW RESISTANCE SC (17:27)
[2025-04-04] MEDS: CRESTOR 20 MG PO (17:52)
--- NOTE | 2025-04-04 17:56 | PTCARENOTE ---
received back into room 3356 from PACU. Drowsy, but arousable. VSS. On room air, SaO2 >95%. drainage to R foot dressing noted, outlined. Denies pain at this time. Left w/ call walker in reach.
[2025-04-04] MEDS: VANCOCIN 540 MG IV (20:32)
[2025-04-04 21:33] LABS: Glucose - Point of Care 195 mg/dl (70-99)
[2025-04-04] MEDS: ZOSYN 100 IV (22:39)
[2025-04-05] VITALS (29 sets, daily range): BP systolic 95–131; BP diastolic 45–81; BMI 25.4
[2025-04-05] MEDS: ZOSYN 100 IV ×4 (03:02→19:51)
--- NOTE | 2025-04-05 05:45 | PTCARENOTE ---
Recc'd pt at shift change; AAOx2-3, mildly disoriented to time, but otherwise able to answer questions appropriately, able to make needs known. Flat/withdrawn, remains on 1:1 sitter per provider order, appropriate behaviors throughout the night, see
1:1 documentation for detail. NSR on the monitor. Tolerating RA with SpO2 98%, mild dry/nonproductive cough noted. Remainder of assessment as documented. Reinforced R foot dressing from debridement in the OR today x2 due to oozing of serosanguineous
drainage. Pt denies pain, offers no complaints at this time, resting comfortably in bed, safety measures in place.
[2025-04-05 05:58] LABS: ALT (SGPT) 32 U/L (0-50); AST (SGOT) 18 U/L (17-59); Albumin 2.4 g/dl (3.5-5.0); Alkaline Phosphatase 157 U/L (38-126); Blood Urea Nitrogen 25 mg/dl (9-20); Calcium 8.8 mg/dl (8.4-10.2); Carbon Dioxide 20 mmol/L (22-30); Chloride 111 mmol/L (98-107); Estimated Creatinine Clearance 107 ml/min; Glucose 231 mg/dl (70-99); Potassium 4.4 mmol/L (3.5-5.1); Sodium 136 mmol/L (135-145); Total Protein 5.0 g/dl (6.3-8.2); eGFR > 60.00
[2025-04-05 07:01] LABS: Hematocrit 18.6 % (39.0-52.0); Hemoglobin 6.4 g/dL (13.0-18.0); Mean Corp Hgb Conc. 34.4 g/dL (33.0-37.0); Mean Corpuscular Volume 86.1 fL (80.0-94.0); Platelet Count 513 10^3/uL (130-400); Red Cell Dist. Width 16.8 % (11.5-14.5)
[2025-04-05 07:21] LABS: Glucose - Point of Care 226 mg/dl (70-99)
--- NOTE | 2025-04-05 07:52 | PHA.VAN.FU ---
Addendum entered and electronically signed by Terri Velez [facility] 04/05/25 07:58:
Random level 18 mcg/mL (approximately 9 hours post 2000MG LD), begin maintenance dosing this morning
Original Note:
Vancomycin Assessment / Plan
- Assessment
Renal Function: Stable
WBC's are: Trending Down (13.9 from 23.8)
In the past 24 hrs, patient has been: Afebrile
Concomitant Antimicrobials: Zosyn
- Dosing Plan
Adjust Regimen to: 1500MG Q24H
New Regimen Predicts: AUC (444)
Based off of previous dosing experience in December 2024 with similar renal function, see note from Laquita Rodríguez on 03/29/25
- Monitoring Plan
No level(s) ordered at this time: Awaiting steady state
- Follow Up
Pharmacy will continue to follow.
Vancomycin Follow UP
- -
Patient Age: 59
Patient Sex: Male
Vancomycin Day #: 2
Indication: Bone And Joint
Requesting Provider: Dr. Boucehr
Pertinent Antimicrobial Allergies:
no pertinent antimicrobial allergies
Height / Weight:
Height 5 ft 11 in
Actual Weight 82.7 kg
Pertinent Past Medical History: DM 2, PAD, L. AKA, R. TMA
- Vital Signs / Lab Results
Temp Pulse Resp BP Pulse Ox
98.4 F 83 16 111/62 98
04/05/25 07:13 04/05/25 07:00 04/05/25 07:13 04/05/25 07:00 04/05/25 07:13
Lab Results - Hematology
04/03/25 04/04/25 04/05/25
08:58 05:46 05:15
WBC 23.6 H 23.8 H 13.9 H
Lab Results - Chemistry
04/03/25 04/04/25 04/05/25
08:58 05:46 05:15
BUN 28 H 24 H 25 H
Creatinine 0.8 0.7 0.8
Estimated Creat Clear 107 123 107
Albumin 2.4 L
Microbiology Results
04/04/25 16:45 Gram Stain - Preliminary
Foot - Right
04/04/25 16:45 Gram Stain - Preliminary
Foot - Right
Therapeutic Drug Monitoring
Random Vancomycin 18.0 ug/ml 04/05/25 05:15
--- NOTE | 2025-04-05 08:30 | PN.DE.MGMTRT ---
Insulin Management
- -
04/05/2025: Diabetes Management follow up
59 year old male admitted 03/29 with progressive shortness of breath and nonproductive cough. CXR/CT obtained indicating bilateral infiltrates concerning for multifocal pneumonia. PMH: HTN, HLD, NIDDM, PAD s/p L AKA 07/06, osteomyelitis of right TMA
01/06, limb flow procedure 02/17/25 with underlying osteomyelitis. Patient is well known to diabetes service, diabetes consult requested today for uncontrolled glucose.
He was initially mildly hypoglycemic but was started on IV steroids contributing to Hyperglycemia.
He was taking Farxiga 10mg daily and Metformin 750mg daily prior to admission, both were held on admission. A1C is 5.4%, Cr 0.9, eGFR >60,
Patient resting in bed, awake and alert, interactive and able to discuss breakfast selections and amount consumed. Patient does have a 1:1 who is very engaged with patient.
AC NovoLog discontinued yesterday; off steroids. Pt had MRI with contrast 04/04, will resume farxiga this AM and [id number].
Lantus dose reduced to 8 units daily in AM with low corrective with meals. Will follow for further needed adjustments.
Discussed with Nurse. Will cont to follow.
Diabetes History
- -
Type of Diabetes: 2
Pre-Admission Diabetes Regimen
04/05/25
05:15
Creatinine 0.8
Lab Results
Hemoglobin A1c 5.4 % (4.0-5.9) 03/29/25 04:58
Insulin Pump Settings
IP Diabetes Regimen
04/04/25 04/04/25 04/04/25
11:53 17:07 21:22
Glucose
POC Glucose 118 H 106 H 195 H
04/05/25 04/05/25
05:15 07:10
Glucose 231 H
POC Glucose 226 H
Meal type: Dinner
Meal type: Breakfast
Amount consumed: 100%
Amount consumed: 0
Patient Education
[2025-04-05] MEDS: LANTUS 0.08 UNITS SC (08:51)
[2025-04-05] MEDS: NOVOLOG FLEXPEN-LOW RESISTANCE 2 UNITS SC (08:51)
[2025-04-05] MEDS: LOW STRENGTH ASPIRIN 81 MG PO (08:51)
[2025-04-05] MEDS: ZOLOFT 25 MG PO (08:52)
[2025-04-05] MEDS: APRESOLINE 50 MG PO ×2 (08:52→21:51)
[2025-04-05] MEDS: NORVASC 10 MG PO (08:52)
[2025-04-05] MEDS: MUCINEX 600 MG PO ×2 (08:52→19:58)
[2025-04-05] MEDS: PROTONIX 40 MG PO (08:52)
[2025-04-05] MEDS: ZESTRIL 20 MG PO (08:52)
[2025-04-05] MEDS: DIFLUCAN 400 MG PO (08:53)
[2025-04-05] MEDS: EFFIENT 10 MG PO (08:53)
[2025-04-05] MEDS: FLOMAX 0.8 MG PO (08:53)
[2025-04-05] MEDS: CATAPRES 0.1 MG PO (08:53)
[2025-04-05] MEDS: VISBIOME 1 CAP PO (08:53)
[2025-04-05] MEDS: NEURONTIN 300 MG PO ×3 (08:53→21:53)
[2025-04-05] MEDS: SODIUM BICARBONATE 650 MG PO ×3 (08:54→21:53)
[2025-04-05] MEDS: HEPARIN 5000 UNITS SC ×2 (08:54→19:58)
[2025-04-05] MEDS: VANCOCIN 530 MG IV (08:54)
[2025-04-05] MEDS: TIMOPTIC 0.5% OPHTHALMIC SOLUTION 1 DROP LEFT EYE ×2 (08:55→20:45)
[2025-04-05] MEDS: PRED FORTE 1% EYE DROPS 1 DROP LEFT EYE ×4 (08:56→21:53)
[2025-04-05] MEDS: TRUSOPT 2% OPHTHALMIC SOLUTION 1 DROP LEFT EYE ×2 (08:56→21:51)
[2025-04-05] MEDS: ALPHAGAN 0.2% EYE DROPS 1 DROP LEFT EYE ×2 (08:56→19:58)
[2025-04-05] MEDS: ATROPINE SULFATE 1% DROPS 1 DROP LEFT EYE ×2 (08:56→19:58)
[2025-04-05] MEDS: FARXIGA 10 MG PO (09:19)
--- NOTE | 2025-04-05 10:20 | CM ---
patient seen at bedside
s/p Right foot debridement with bone culture form Rt 1st metatarsal
now 1:1 with psychiatry consult pending
will request new PT/OT evals from hospitalist
PLAN: anticipate SNF to LTC when stable, CM to continue to follow
--- NOTE | 2025-04-05 11:05 | W.PN.ID1 ---
Addendum entered and electronically signed by Terri Boucher MD 04/06/25 10:07:
Evaluated foot with Dr Heath at ~13:30. wound clean, no surrounding erythema, moderate amount of bloody drainage, no odor, very small area of visible first metatarsal, areas with scant granulation tissue over 2nd and 3rd but no helen exposed
bone, subcuticular tissue appears healthy.
Original Note:
Date of Service
Date of Service: April 05, 2025
Today's Communication
- MRI suspected osteomyelitis of 1st, 5th digits and possible osteomyelitis of remaining digits
- restarted antibiotics (zosyn, vancomycin) post debridement, continue fluconazole at this time, durations TBD pending OR cultures/pathology/OR findings
- will follow up full OR report when available
- tiger text to podiatry asking when I can take down the dressing
Assessment / Plan
# Leukocytosis- suspect necrotic non-healing R foot TMA source
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
- recently completed 6 weeks of IV daptomycin and ertapenem
- maintain PICC at this time
- doubt R foot is salvageable
- MRI suspected osteomyelitis of 1st, 5th digits and possible osteomyelitis of remaining digits
- restarted antibiotics (zosyn, vancomycin) post debridement, continue fluconazole at this time, durations TBD pending OR cultures/pathology/OR findings
- will follow up full OR report when available
- tiger text to podiatry asking when I can take down the dressing
#Community Acquired Pneumonia
#Acute Respiratory Failure resolved
- completed levofloxacin x 7 day total course 03/28-04/03
#Lesion on LVOT most consistent with calcification
- 03/28 blood cultures x2 no growth at 4 days
- just finished a 6 week course of daptomycin and ertapenem, concern for endocarditis is low
- no need for further workup at this time
Chief Complaint
-: Pneumonia and Other (osteomyelitis, dry gangrene)
Subjective / Review of Systems
afebrile
bp stable
screened in for suicidal ideation yesterday and now on 1:1
right foot debridement and culture from right 1st metatarsal yesterday
Vital Signs / Physical Exam
Vital Signs
Vital Signs
Temp Pulse Resp BP Pulse Ox
98.4 F 87 16 124/63 98
04/05/25 07:13 04/05/25 08:53 04/05/25 07:13 04/05/25 08:53 04/05/25 07:13
Physical Exam
Constitutional: No Acute Distress and Chronically Ill
Cardiovascular: Regular Rate and S1/S2; Negative Murmur or Rub
Pulmonary: Clear and Symmetric; Negative Wheezes or Rales
Gastrointestinal: Soft, Non Tender, Non Distended and Normal Bowel Sounds
Skin: Warm and Dry; Negative Rash or Jaundice
Wound: Other (dressing with scan serous drainage, otherwise clean, dry, intact)
Neurological: Awake
Lines: PICC
Objective Data
Lab Data
Lab Results
04/05/25 05:15
04/05/25 05:15
Estimated Creat Clear 107 ml/min 04/05/25 05:15
Lactic Acid 0.9 mmol/L (0.7-2.0) 03/28/25 09:29
Total Bilirubin 0.4 mg/dl (0.2-1.3) 04/05/25 05:15
AST 18 U/L (17-59) 04/05/25 05:15
ALT 32 U/L (0-50) 04/05/25 05:15
Alkaline Phosphatase 157 U/L (38-126) H 04/05/25 05:15
Most recent labs reviewed.
Micro Results:
04/04/25 16:45 Tissue Culture - Pending
Foot - Right Gram Stain - Preliminary
04/04/25 16:45 Wound Culture - Pending
Foot - Right Gram Stain - Preliminary
04/04/25 16:45 Anaerobic Culture - Pending
Foot - Right
03/28/25 10:34 Blood Culture - Final
Blood/Venous No Growth - Final Report
03/28/25 09:28 Blood Culture - Final
Blood/Venous No Growth - Final Report
03/28/25 23:31 MRSA Screen - Final
Nose No Methicillin Resistant Staphylococcus aureus isolated.
03/28/25 23:31 Legionella Urinary Antigen - Final
Urine Negative for Legionella pneumophila Serogroup 1 antigen.
A negative result does not rule out the possiblity of
Legionella infection due to other serogroups or species of
Legionella. Clinical correlation is recommended.
Streptococcus pneumoniae Antigen (M - Final
Negative for Streptococcus pneumoniae antigen.
A negative result does not exclude infection with
Streptococcus pneumoniae. Clinical correlation is
recommended.
03/28/25 10:34 Influenza Types A & B ([facility]CKAY) - Final
Nasal Swab Negative for Influenza A & B, NAAT
Negative results must be combined with clinical observations
and patient history.
Nucleic Acid Amplification test (NAAT)performed on the
[employer] NOW platform.
03/28/25 09:28 Influenza Types A & B ([facility]CKAY) - Final
Nasal Swab Test repeatedly invalid.
Nucleic Acid Amplification test (NAAT)performed on the
[employer] NOW platform.
--- NOTE | 2025-04-05 11:23 | W.PN.HOSP.TC ---
Today's Communication/Plan
-
see plan
Assessment / Plan
Assessment / Plan
Admission summary: 59 yo man with hx IDDM, essential HTN, CKD, PAD s/p left AKA 07/06 and s/p right TMA 01/06 admitted 02/13-02/22 for acute osteomyelitis of right metatarsal amputation (s/p limflow procedure discharged 6 weeks
Vanc/Ertapenem/Fluconazole) admitted again 03/03-03/08 for lethargy, LINDY (s/p correa catheter, IV Vanc changed to IV Daptomycin) and completed antibiotics 03/26/25 then with worsening shortness of breath and hypoxia over the weekend found to have
multifocal pneumonia.
Gen: NAD, AAOx3.
Eyes: EOMI, PERRLA, no scleral icterus.
Neck: supple.
CV: continues to remain RRR, +S1/S2, no m/r/g.
Resp: remains CTAB anteriorly, no rales, wheezes, or rhonchi.
Abd: continues to remain +BS, soft, NT, ND
Skin: No rashes.
Neuro: CN 2-12 intact, non-focal.
Psych: Normal mood and affect.
04/04/25 16:45 Foot - Right Gram Stain - Preliminary
04/04/25 16:45 Foot - Right Gram Stain - Preliminary
03/28/25 10:34 Blood/Venous Blood Culture - Final
No Growth - Final Report
03/28/25 09:28 Blood/Venous Blood Culture - Final
No Growth - Final Report
03/28/25 23:31 Nose MRSA Screen - Final
No Methicillin Resistant Staphylococcus aureus isolated.
03/28/25 23:31 Urine Legionella Urinary Antigen - Final
Negative for Legionella pneumophila Serogroup 1 antigen.
A negative result does not rule out the possiblity of
Legionella infection due to other serogroups or species of
Legionella. Clinical correlation is recommended.
03/28/25 23:31 Urine Streptococcus pneumoniae Antigen (M - Final
Negative for Streptococcus pneumoniae antigen.
A negative result does not exclude infection with
Streptococcus pneumoniae. Clinical correlation is
recommended.
03/28/25 10:34 Nasal Swab Influenza Types A & B (MCKAY) - Final
Negative for Influenza A & B, NAAT
Negative results must be combined with clinical observations
and patient history.
Nucleic Acid Amplification test (NAAT)performed on the
[employer] NOW platform.
03/28/25 09:28 Nasal Swab Influenza Types A & B (MCKAY) - Final
Test repeatedly invalid.
Nucleic Acid Amplification test (NAAT)performed on the
[employer] NOW platform.
Echo 03/30:
1. Hyperdynamic left ventricular systolic function with mild left ventricular hypertrophy (septal wall). No left ventricular outflow tract gradient.
2. Dilated right ventricle with normal systolic function.
3. Aortic sclerosis without stenosis.
4. Limited evaluation of the tricuspid valve is normal.
5. There is a protruding echobright non-mobile density in the left ventricular outflow tract just below or at the valve plane most consistent with calcification. If clinical suspicion persists, serial imaging vs CHRISTOPHER can be done in further
evaluation.
Acute hypoxemic respiratory failure due to multifocal pneumonia:
-Flu/COVID NEG
-was on 6L NC O2, now weaned to RA
-just prior to admission pt had completed a course of Dapto/Ertapenem for OM of R TMA site.
-BCxs NGTD
-was on Cefepime/Doxy, now transitioned to Levaquin through 04/03
-QTc 04/01 429ms
-afebrile, persistent leukocytosis
PAD status post left AKA (07/06) and right TMA (01/06)
-OM at right TMA amputation site status post 6 weeks IV antibiotics (Dapto/Ertapenem) completed 03/26.
-cont ASA/Prasugrel
-wound care/PT/OT
-Podiatry performed Right foot debridement with bone culture form Rt 1st metatarsal in the OR on 04/04/25
-cont Vanco/Zosyn as per ID
-follow intra-op Cxs and path
-Of note, on Fluconazole for 6 months unless pt has further resection (will d/w ID if 04/04 OR qualifies)
-acute blood loss anemia due to surgery, transfuse 2U pRBCs
DM2:
-a1c 5.7%
-had hypoglycemia, now resolved
-cont Lantus at reduced dose, premeal Novolog stopped, SSI now low-res
-telehealth nurse educator following
-Metformin/Farxiga started
Thoughts of not wanting to be alive:
-psych to see
-currently on 1:1
Other problems:
Hyponatremia, mild, resolved
Chronic metabolic acidosis: Improving s/p IV NaHCO3, now started on PO NaHCO3
Hypokalemia, resolved
Essential HTN: cont Norvasc/Clonidine/Hydralazine/Lisinopril
HLD: cont statin
Anemia of chronic disease
Anxiety: cont Zoloft
BPH: cont flomax
FULL/Heparin
Anticipated Discharge: > 48 hours
Subjective/Interval History
-
Date of Service: April 05, 2025
No new complaints.
Objective Data
-
Labs:
Laboratory Results
04/05/25
05:15
WBC 13.9 H
Hgb 6.4 L*
Hct 18.6 L*
Plt Count 513 H
Sodium 136
Potassium 4.4
Chloride 111 H
Carbon Dioxide 20 L
BUN 25 H
Creatinine 0.8
Glucose 231 H
Calcium 8.8
Total Bilirubin 0.4
AST 18
ALT 32
Alkaline Phosphatase 157 H
Vital Signs:
Vital Signs
Temp Pulse Resp BP Pulse Ox
98.4 F 87 16 124/63 98
04/05/25 07:13 04/05/25 08:53 04/05/25 07:13 04/05/25 08:53 04/05/25 07:13
I&O
04/04/25 04/05/25 04/06/25
06:59 06:59 06:59
Intake Total 680 / 680 1820 / 1820 1084 / 1084
Output Total 2150 / 2150 2275 / 2275 400 / 400
Balance -1470 / -1470 -455 / -455 684 / 684
[2025-04-05 11:59] LABS: Glucose - Point of Care 179 mg/dl (70-99)
[2025-04-05] MEDS: NOVOLOG FLEXPEN-LOW RESISTANCE 1 UNITS SC (12:42)
--- NOTE | 2025-04-05 14:04 | W.PN.POD ---
Today's Communication
Today's Communication
Patient appears stable per podiatry
Assessment / Plan
-
S/p Rt foot necrotic tissue debridement and bone culture sent to pathology POD #1.
Rt heel stable eschar
PAD
Diabetic vascular disease
Multiple bone resections Rt foot.
Plan : Patient seen at bedside
Resolved leukocytosis
Changed surgical dressings, applied adaptic, dry gauze dressings
Keep the Rt foot elevated at all times.
Rt heel off loading boots at night time
Will order Santyl ointment to RT foot wound to start from tomorrow.
Abx per ID
Subjective
Chief Complaint
Right foot necrotic wound with osteomyelitis to Rt 1st and 5th metatarsals.
Subjective
Patient seen at bedside, sleeping comfortably, Did not wake him up.
Stable vital signs. Rt foot dressings with heavy strike through bleeding noted.
No fever, chills, no acute distress.
Objective
Temp Pulse Resp BP Pulse Ox
97.9 F 74 14 104/63 99
04/05/25 11:44 04/05/25 12:00 04/05/25 12:00 04/05/25 11:00 04/05/25 12:00
04/05/25 05:15
04/05/25 05:15
Vital Signs and Lab results were reviewed.
Rt foot warm to touch, No edema
Surgically debrided site with minimal bloody oozing, no purulence, moderate amount of slough in the wound bed, no foul smell, no crepitus or any signs of abscess.
Wound probing medial aspect at 1st metatarsal and 3rd metatarsal areas. Remaining TMA site covered with granulation tissue.
Rt heel with stable dry eschar about 3 cm x 2.5 cm, no local erythema, no purulence, no SOI
--- NOTE | 2025-04-05 14:04 | PTCARENOTE ---
received pt at 0700. pt aaox3 with stable vitals. 1:1 has been present throughout the shift. mother now at bedside. pt calm and cooperative; no s/s of SI/HI. right foot dressing with some shadowing s/p intervention by hourly shift manager Rn to control
bleeding through dressing. PRBC ordered. awaiting blood bank for product. pt evaluated by speech. plan of care continues to be followed.
--- NOTE | 2025-04-05 14:45 | WOUNDNOTE ---
RAFFAELE RN NOTE: Reviewed Dr. Heath's OR report and note from today. Dressing on R TMA and heel changed by Lift Team Technician, Jermaineyl was ordered. Updated wound care instructions in care plan and discharge instructions. Will follow when able to assess
sacrum.
[2025-04-05] MEDS: APRESOLINE PO (15:52)
[2025-04-05] MEDS: NOVOLOG FLEXPEN-LOW RESISTANCE 3 UNITS SC (16:31)
[2025-04-05 16:40] LABS: Glucose - Point of Care 252 mg/dl (70-99)
--- NOTE | 2025-04-05 16:59 | PTCARENOTE ---
temp logged as 98.9 at 15 min vital check at 1655 for second unit was misdocumented and should be 97.9: accurate temp has been logged for that time slot of 1655 within TAR.
[2025-04-05] MEDS: CRESTOR 20 MG PO (17:18)
--- NOTE | 2025-04-05 18:06 | PTCARENOTE ---
Blood product volumes as follow: 285 ml for first transfusion and 292 ml for second transfusion (noted as 250 mls per each transfusion in TAR which was an in accurate volume) Volumes logged into I+O are the accurate volumes s/p infusions.
--- NOTE | 2025-04-05 18:27 | PTCARENOTE ---
pt no longer on one to one; cleared by psych md. pt has been calm and cooperative entire shift; no s/s of Si/HI. pt received 2 UPRBC today; tolerated well. dressing on R foot changed by podiatry MD remains dry and intact; no shadowing noted s/p
dressing change around 1330. plan of care continues to be followed.
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
[2025-04-05 21:31] LABS: Glucose - Point of Care 209 mg/dl (70-99)
[2025-04-06] VITALS (20 sets, daily range): BP systolic 104–136; BP diastolic 52–88
--- NOTE | 2025-04-06 02:30 | PTCARENOTE ---
Pt received from previous RN in bed. AAOx2 (time), minimal verbal engagement (stares), flat/withdrawn. Full physical assessment documented (refer to worklist). R foot dressing w/large amount of strikethrough --> taken down to layer of adaptic
then redressed. R foot elevated on 2 pillows per order. Bustamante draining clear yellow. LSL PICC w/brisk blood return, #20 RFA flushed and patent. Call aaron w/in reach. Safe environment maintained.
[2025-04-06] MEDS: ZOSYN 100 IV ×4 (02:38→19:44)
--- NOTE | 2025-04-06 03:30 | PTCARENOTE ---
Moderate amount of blood noted to be on patient's gown. Abdomen inspected, suspect heparin injection site. Area cleansed and small pressure dressing placed. Gown and linens changed.
[2025-04-06 04:11] LABS: Hematocrit 24.6 % (39.0-52.0); Hemoglobin 8.5 g/dL (13.0-18.0); Mean Corp Hgb Conc. 34.6 g/dL (33.0-37.0); Mean Corpuscular Volume 85.7 fL (80.0-94.0); Platelet Count 454 10^3/uL (130-400); Red Cell Dist. Width 16.5 % (11.5-14.5)
[2025-04-06 04:19] LABS: Blood Urea Nitrogen 22 mg/dl (9-20); Calcium 8.8 mg/dl (8.4-10.2); Carbon Dioxide 22 mmol/L (22-30); Chloride 109 mmol/L (98-107); Estimated Creatinine Clearance 107 ml/min; Glucose 134 mg/dl (70-99); Potassium 3.6 mmol/L (3.5-5.1); Sodium 137 mmol/L (135-145); eGFR > 60.00
[2025-04-06] MEDS: VANCOCIN 530 MG IV (05:26)
--- NOTE | 2025-04-06 07:44 | PN.DE.MGMTRT ---
Insulin Management
- -
04/06/2025: Diabetes Management follow up
59 year old male admitted 03/29 with progressive shortness of breath and nonproductive cough. CXR/CT obtained indicating bilateral infiltrates concerning for multifocal pneumonia. PMH: HTN, HLD, NIDDM, PAD s/p L AKA 07/06, osteomyelitis of right TMA
01/06, limb flow procedure 02/17/25 with underlying osteomyelitis. Patient is well known to diabetes service, diabetes consult requested today for uncontrolled glucose.
He was initially mildly hypoglycemic but was started on IV steroids contributing to Hyperglycemia.
He was taking Farxiga 10mg daily and Metformin 750mg daily prior to admission, both were held on admission. A1C is 5.4%, Cr 0.9, eGFR >60,
Patient resting in bed, head tilted to the side, appears very depressed with flat affect, no family at bedside.
AC NovoLog discontinued on 04/04; off steroids.
04/05 Lantus dose reduced to 8 units daily in AM with low corrective with meals. Farxiga was resumed, glucose range 179 to 252, FBG 134 this AM.
Pt had MRI with contrast 04/04, will resume metformin 750mg XL today.
Will follow for further needed adjustments.
Discussed with Nurse. Will cont to follow.
Diabetes History
- -
Type of Diabetes: 2 requiring insulin
Pre-Admission Diabetes Regimen
04/06/25
03:28
Creatinine 0.8
Lab Results
Hemoglobin A1c 5.4 % (4.0-5.9) 03/29/25 04:58
Insulin Pump Settings
IP Diabetes Regimen
04/05/25 04/05/25 04/05/25
11:48 16:28 21:19
Glucose
POC Glucose 179 H 252 H 209 H
04/06/25
03:28
Glucose 134 H
POC Glucose
Meal type: Dinner
Meal type: Lunch
Meal type: Breakfast
Amount consumed: 100%
Amount consumed: 100%
Amount consumed: 15%
Patient Education
[2025-04-06 07:59] LABS: Glucose - Point of Care 90 mg/dl (70-99)
[2025-04-06] MEDS: NOVOLOG FLEXPEN-LOW RESISTANCE SC ×2 (08:14→12:34)
[2025-04-06] MEDS: NEURONTIN 300 MG PO ×3 (08:18→22:33)
[2025-04-06] MEDS: GLUCOPHAGE XR EXTENDED RELEASE 750 MG PO (08:18)
[2025-04-06] MEDS: SODIUM BICARBONATE 650 MG PO ×3 (08:18→22:33)
[2025-04-06] MEDS: DIFLUCAN 400 MG PO (08:19)
[2025-04-06] MEDS: ZESTRIL 20 MG PO (08:19)
[2025-04-06] MEDS: FARXIGA 10 MG PO (08:19)
[2025-04-06] MEDS: MUCINEX 600 MG PO ×2 (08:19→19:27)
[2025-04-06] MEDS: ZOLOFT 25 MG PO (08:19)
[2025-04-06] MEDS: NORVASC 10 MG PO (08:19)
[2025-04-06] MEDS: LOW STRENGTH ASPIRIN 81 MG PO (08:19)
[2025-04-06] MEDS: EFFIENT 10 MG PO (08:19)
[2025-04-06] MEDS: HEPARIN 5000 UNITS SC ×2 (08:20→19:27)
[2025-04-06] MEDS: APRESOLINE 50 MG PO ×3 (08:20→22:33)
[2025-04-06] MEDS: PROTONIX 40 MG PO (08:20)
[2025-04-06] MEDS: CATAPRES 0.1 MG PO (08:20)
[2025-04-06] MEDS: VISBIOME 1 CAP PO (08:20)
[2025-04-06] MEDS: ALPHAGAN 0.2% EYE DROPS 1 DROP LEFT EYE ×2 (08:21→19:40)
[2025-04-06] MEDS: PRED FORTE 1% EYE DROPS 1 DROP LEFT EYE ×4 (08:21→22:33)
[2025-04-06] MEDS: ATROPINE SULFATE 1% DROPS 1 DROP LEFT EYE ×2 (08:21→19:40)
[2025-04-06] MEDS: TIMOPTIC 0.5% OPHTHALMIC SOLUTION 1 DROP LEFT EYE ×2 (08:22→19:40)
[2025-04-06] MEDS: TRUSOPT 2% OPHTHALMIC SOLUTION 1 DROP LEFT EYE ×2 (08:22→19:39)
--- NOTE | 2025-04-06 08:29 | PHA.VAN.FU ---
Vancomycin Assessment / Plan
- Assessment
Renal Function: Stable (0.8 both yesterday and today)
WBC's are: Stable (13.8 from 13.9)
In the past 24 hrs, patient has been: Afebrile
Concomitant Antimicrobials: Fluconazole, Zosyn
- Dosing Plan
Continue: 1500MG Q24H
- Monitoring Plan
No level(s) ordered at this time: Awaiting steady state
- Follow Up
Pharmacy will continue to follow.
Vancomycin Follow UP
- -
Patient Age: 59
Patient Sex: Male
Vancomycin Day #: 3
Indication: [facility]
Requesting Provider: Dr. Boucher
Pertinent Antimicrobial Allergies:
no pertinent antimicrobial allergies
Height / Weight:
Height 5 ft 11 in
Actual Weight 82.7 kg
Pertinent Past Medical History: DM 2, PAD, L. AKA, R. TMA
- Vital Signs / Lab Results
Temp Pulse Resp BP Pulse Ox
98.1 F 73 16 133/72 98
04/06/25 07:03 04/06/25 06:00 04/06/25 06:00 04/06/25 06:00 04/06/25 06:00
Lab Results - Hematology
04/03/25 04/04/25 04/05/25
08:58 05:46 05:15
WBC 23.6 H 23.8 H 13.9 H
04/06/25
03:28
WBC 13.8 H
Lab Results - Chemistry
04/03/25 04/04/25 04/05/25
08:58 05:46 05:15
BUN 28 H 24 H 25 H
Creatinine 0.8 0.7 0.8
Estimated Creat Clear 107 123 107
Albumin 2.4 L
04/06/25
03:28
BUN 22 H
Creatinine 0.8
Estimated Creat Clear 107
Albumin
Microbiology Results
04/04/25 16:45 Anaerobic Culture - Preliminary
Foot - Right Culture pending. Anaerobic cultures are examined after 3
days incubation. Additional information to follow.
04/04/25 16:45 Wound Culture - Preliminary
Foot - Right Gram Stain - Preliminary
04/04/25 16:45 Tissue Culture - Preliminary
Foot - Right Gram Stain - Preliminary
Therapeutic Drug Monitoring
Random Vancomycin 18.0 ug/ml 04/05/25 05:15
[2025-04-06] MEDS: LANTUS 0.08 UNITS SC (09:04)
[2025-04-06] MEDS: FLOMAX 0.8 MG PO (09:04)
--- NOTE | 2025-04-06 09:28 | W.PN.HOSP.TC ---
Today's Communication/Plan
-
see plan
Assessment / Plan
Assessment / Plan
Admission summary: 59 yo man with hx IDDM, essential HTN, CKD, PAD s/p left AKA 07/06 and s/p right TMA 01/06 admitted 02/13-02/22 for acute osteomyelitis of right metatarsal amputation (s/p limflow procedure discharged 6 weeks
Vanc/Ertapenem/Fluconazole) admitted again 03/03-03/08 for lethargy, LINDY (s/p correa catheter, IV Vanc changed to IV Daptomycin) and completed antibiotics 03/26/25 then with worsening shortness of breath and hypoxia over the weekend found to have
multifocal pneumonia.
Gen: remains NAD, AAOx3.
Eyes: EOMI, PERRLA, no scleral icterus.
Neck: supple.
CV: RRR, +S1/S2, no m/r/g.
Resp: continues to remain CTAB anteriorly, no rales, wheezes, or rhonchi.
Abd: +BS, soft, NT, ND
Skin: No rashes. R foot with gauze dressing
Neuro: CN 2-12 intact, non-focal.
Psych: Normal mood and affect.
04/04/25 16:45 Foot - Right Anaerobic Culture - Preliminary
Culture pending. Anaerobic cultures are examined after 3
days incubation. Additional information to follow.
04/04/25 16:45 Foot - Right Wound Culture - Preliminary
04/04/25 16:45 Foot - Right Gram Stain - Preliminary
04/04/25 16:45 Foot - Right Tissue Culture - Preliminary
04/04/25 16:45 Foot - Right Gram Stain - Preliminary
03/28/25 10:34 Blood/Venous Blood Culture - Final
No Growth - Final Report
03/28/25 09:28 Blood/Venous Blood Culture - Final
No Growth - Final Report
03/28/25 23:31 Nose MRSA Screen - Final
No Methicillin Resistant Staphylococcus aureus isolated.
03/28/25 23:31 Urine Legionella Urinary Antigen - Final
Negative for Legionella pneumophila Serogroup 1 antigen.
A negative result does not rule out the possiblity of
Legionella infection due to other serogroups or species of
Legionella. Clinical correlation is recommended.
03/28/25 23:31 Urine Streptococcus pneumoniae Antigen (M - Final
Negative for Streptococcus pneumoniae antigen.
A negative result does not exclude infection with
Streptococcus pneumoniae. Clinical correlation is
recommended.
03/28/25 10:34 Nasal Swab Influenza Types A & B ([facility]) - Final
Negative for Influenza A & B, NAAT
Negative results must be combined with clinical observations
and patient history.
Nucleic Acid Amplification test (NAAT)performed on the
[employer] NOW platform.
03/28/25 09:28 Nasal Swab Influenza Types A & B ([facility]) - Final
Test repeatedly invalid.
Nucleic Acid Amplification test (NAAT)performed on the
[employer] ID NOW platform.
Echo 03/30:
1. Hyperdynamic left ventricular systolic function with mild left ventricular hypertrophy (septal wall). No left ventricular outflow tract gradient.
2. Dilated right ventricle with normal systolic function.
3. Aortic sclerosis without stenosis.
4. Limited evaluation of the tricuspid valve is normal.
5. There is a protruding echobright non-mobile density in the left ventricular outflow tract just below or at the valve plane most consistent with calcification. If clinical suspicion persists, serial imaging vs CHRISTOPHER can be done in further
evaluation.
MRI R foot 04/04/25: Transmetatarsal amputations. Acute osteomyelitis at the resection margins of the first and fifth metatarsals. Bone marrow edema without overt T1 hypointense marrow replacement in the second, third, and fourth metatarsals, for
which considerations include reactive edema versus the early changes of osteomyelitis. No evidence for septic arthritis. No drainable soft tissue fluid collection/abscess.
PAD status post left AKA (07/06) and right TMA (01/06)
-OM at right TMA amputation site status post 6 weeks IV antibiotics (Dapto/Ertapenem) completed 03/26.
-cont ASA/Prasugrel
-wound care/PT/OT
-Podiatry performed Right foot debridement with bone culture form Rt 1st metatarsal in the OR on 04/04/25
-cont Vanco/Zosyn as per ID
-follow intra-op Cxs and path
-Of note, on Fluconazole for 6 months unless pt has further resection (will d/w ID if 04/04 OR qualifies)
-acute blood loss anemia due to surgery s/p 2U pRBCs
Acute hypoxemic respiratory failure due to multifocal pneumonia:
-Flu/COVID NEG
-was on 6L NC O2, now weaned to RA
-just prior to admission pt had completed a course of Dapto/Ertapenem for OM of R TMA site.
-BCxs NGTD
-was on Cefepime/Doxy, then transitioned to Levaquin with plan for completion 04/03
-now on Zosyn/Vanco for R foot OM
DM2:
-a1c 5.7%
-had hypoglycemia, now resolved
-cont Lantus at reduced dose, premeal Novolog stopped, SSI now low-res
-Metformin/Farxiga started
-diabetic educator following
Thoughts of not wanting to be alive:
-psych to see
-currently on 1:1
Other problems:
Hyponatremia, mild, resolved
Chronic metabolic acidosis: resolved s/p IV NaHCO3, now started on PO NaHCO3
Hypokalemia, resolved
Essential HTN: cont Norvasc/Clonidine/Hydralazine/Lisinopril
HLD: cont statin
Anemia of chronic disease
Anxiety: cont Zoloft
BPH: cont flomax
FULL/Heparin
Anticipated Discharge: 24 - 48 hours
Subjective/Interval History
-
Date of Service: April 06, 2025
Objective Data
-
Labs:
Laboratory Results
04/06/25
03:28
WBC 13.8 H
Hgb 8.5 L D
Hct 24.6 L
Plt Count 454 H
Sodium 137
Potassium 3.6
Chloride 109 H
Carbon Dioxide 22
BUN 22 H
Creatinine 0.8
Glucose 134 H
Calcium 8.8
Vital Signs:
Vital Signs
Temp Pulse Resp BP Pulse Ox
98.1 F 78 16 124/75 98
04/06/25 07:03 04/06/25 08:19 04/06/25 06:00 04/06/25 08:19 04/06/25 06:00
I&O
04/05/25 04/06/25 04/07/25
06:59 06:59 06:59
Intake Total 1820 / 1820 3961 / 3961
Output Total 2275 / 2275 1959 / 1959
Balance -455 / -455 2000
--- NOTE | 2025-04-06 10:05 | W.PN.ID1 ---
Date of Service
Date of Service: April 06, 2025
Today's Communication
- culture of the bone of the 1st metatarsal in progress - will follow
- continue vanc/zosyn/fluconazole, durations TBD pending OR cultures/pathology/OR findings
- will follow up full OR report when available
Assessment / Plan
# Leukocytosis- suspect necrotic non-healing R foot TMA source
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
- recently completed 6 weeks of IV daptomycin and ertapenem
- maintain PICC at this time
- more progress than I had expected and there is healthy appearing bleeding tissue covering the majority of the metatarsals, will continue to follow
- MRI suspected osteomyelitis of 1st, 5th digits and possible osteomyelitis of remaining digits
- culture of the bone of the 1st metatarsal in progress - will follow
- continue vanc/zosyn/fluconazole, durations TBD pending OR cultures/pathology/OR findings
- will follow up full OR report when available
#Community Acquired Pneumonia
#Acute Respiratory Failure resolved
- completed levofloxacin x 7 day total course 03/28-04/03
#Lesion on LVOT most consistent with calcification
- 03/28 blood cultures x2 no growth at 4 days
- just finished a 6 week course of daptomycin and ertapenem, concern for endocarditis is low
- no need for further workup at this time
Chief Complaint
-: Other (osteomyelitis, dry gangrene)
Subjective / Review of Systems
afebrile
bp stable
'I feel more hopeful'
tolerating current therapies
Vital Signs / Physical Exam
Vital Signs
Vital Signs
Temp Pulse Resp BP Pulse Ox
98.1 F 78 16 124/75 98
04/06/25 07:03 04/06/25 08:19 04/06/25 06:00 04/06/25 08:19 04/06/25 06:00
Physical Exam
Constitutional: No Acute Distress
Cardiovascular: Regular Rate and S1/S2; Negative Murmur or Rub
Pulmonary: Clear and Symmetric; Negative Wheezes or Rales
Gastrointestinal: Soft, Non Tender, Non Distended and Normal Bowel Sounds
Skin: Warm and Dry; Negative Rash or Jaundice
Wound: Other (dressing clean, dry, intact)
Neurological: Awake
Lines: PIV and PICC
Objective Data
Lab Data
Lab Results
04/06/25 03:28
04/06/25 03:28
Estimated Creat Clear 107 ml/min 04/06/25 03:28
Lactic Acid 0.9 mmol/L (0.7-2.0) 03/28/25 09:29
Total Bilirubin 0.4 mg/dl (0.2-1.3) 04/05/25 05:15
AST 18 U/L (17-59) 04/05/25 05:15
ALT 32 U/L (0-50) 04/05/25 05:15
Alkaline Phosphatase 157 U/L (38-126) H 04/05/25 05:15
Most recent labs reviewed.
Micro Results:
04/04/25 16:45 Anaerobic Culture - Preliminary
Foot - Right Culture pending. Anaerobic cultures are examined after 3
days incubation. Additional information to follow.
04/04/25 16:45 Wound Culture - Preliminary
Foot - Right Gram Stain - Preliminary
04/04/25 16:45 Tissue Culture - Preliminary
Foot - Right Gram Stain - Preliminary
03/28/25 10:34 Blood Culture - Final
Blood/Venous No Growth - Final Report
03/28/25 09:28 Blood Culture - Final
Blood/Venous No Growth - Final Report
03/28/25 23:31 MRSA Screen - Final
Nose No Methicillin Resistant Staphylococcus aureus isolated.
03/28/25 23:31 Legionella Urinary Antigen - Final
Urine Negative for Legionella pneumophila Serogroup 1 antigen.
A negative result does not rule out the possiblity of
Legionella infection due to other serogroups or species of
Legionella. Clinical correlation is recommended.
Streptococcus pneumoniae Antigen (M - Final
Negative for Streptococcus pneumoniae antigen.
A negative result does not exclude infection with
Streptococcus pneumoniae. Clinical correlation is
recommended.
03/28/25 10:34 Influenza Types A & B ([facility]) - Final
Nasal Swab Negative for Influenza A & B, NAAT
Negative results must be combined with clinical observations
and patient history.
Nucleic Acid Amplification test (NAAT)performed on the
[employer] ID NOW platform.
03/28/25 09:28 Influenza Types A & B ([facility]) - Final
Nasal Swab Test repeatedly invalid.
Nucleic Acid Amplification test (NAAT)performed on the
[employer] ID NOW platform.
Care Review
Plan reviewed with: Physician (Dr Beasley - samo)
--- NOTE | 2025-04-06 10:36 | WOUNDNOTE ---
SACRUM/BILATERAL BUTTOCKS
--- NOTE | 2025-04-06 10:39 | WOUNDNOTE ---
[facility] RN NOTE: Patient visited today for multiple stage 2 open areas on buttocks. Upon assessment when comparing pictures from 05/30, buttock wounds appear to have progressed as they appear deeper. These wounds are now likely deep dermal stage 2 and
are draining serous fluid.At time of assessment, patient was positioned on a right semi side lying position with wedge. Border foams fell off easily due to drainage and poor skin turgor. His buttocks fold over on each other, likely creating more
pressure, moisture and friction which may be worsening wounds. Per chart review, patient has frequent small, loose BMs. A correa is in place and draining clear urine. Patient admits to poor appetite and said he he has been eating more over the past
few days. Per chart review, appetite does appear that it has improved. Patient also verbalized that he is feeling down and had a psych consult yesterday. Spoke to RNIsauar who is aware that podiatry is following patient for right foot wound. Will
recommend trying Maximum Strength Desitin and applying ABD in between buttock folds. Patient was positioned on a left semi-side lying position with wedge. He remains on a [employer] Max Air and turning schedule. Will continue to follow up with
patient during in-patient stay. Will confirm orders with Dr. Beasley and update RN.
--- NOTE | 2025-04-06 10:57 | WOUNDNOTE ---
[facility] RN NOTE: Patient visited today for multiple stage 3 open areas on buttocks. Wounds with serous drainage and scattered areas of slough. At time of assessment, patient was positioned on a right semi side lying position with wedge. Border foams
fell off easily due to drainage and poor skin turgor. His buttocks fold over on each other, likely creating more pressure, moisture and friction. Per chart review, patient has frequent small, loose BMs. A correa is in place and draining clear urine.
Patient admits to poor appetite and said he he has been eating more over the past few days. Per chart review, appetite does appear that it has improved. Patient also verbalized that he is feeling down and had a psych consult yesterday. Spoke to RN,
Isaura who is aware that podiatry is following patient for right foot wound. Will recommend trying Maximum Strength Desitin and applying ABD in between buttock folds. Patient was positioned on a left semi-side lying position with wedge. He remains on
a [employer] Max Air and turning schedule. Will continue to follow up with patient during in-patient stay. Will confirm orders with Dr. Beasley and update RN.
[2025-04-06] MEDS: SANTYL OINTMENT 1 APPLIC TOPICAL (11:48)
--- NOTE | 2025-04-06 11:52 | W.PN.UPDATE ---
Update Note
Progress Note Update
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 Seen by Dr. Daniel for consultation due to concerns about suicidality. Mother was
seated next to him and he had no objections to her being present. Seen for 30 min. He had thoughts of just 'wanting to sit on a hill' but assures me, because he lost his father and knows the pain of a loss, that he would never take his own life.
His series of medical problems following snf have not allowed him to enjoy his snf, which might have included moving to the [facility] [place]. He is on Zoloft 25 mg. but neither he nor his mother knew that and unclear when it was
started. Dr. Daniel expressed concerns about raising the dose due to its negative effects on platelet aggregation.
He presents as somewhat older than his chronological age with a large gonzalez jovel. Was resting in bed, but made eye contact and able to converse. Speech is slow, but is oriented and has good memory and cognition. Mood is depressed. Had some
crying in the past when thinking about his situation and his future. Has strong sandy. His affect was somewhat flat overall, but able to appropriately smile and laugh. Not tearful or irritable. No signs of psychosis. Of at least average
intelligence.
I proposed adding Wellbutrin (bupropion) XL 150 mg. to address depression which may help with mood, energy and motivation and not affect platelets or Na. His BP is well-controlled and has no history of seizures. Will continue Zoloft 25 mg. for
now, but if he has a response to Wellburin, Zoloft can be stopped. He denies experiencing anxiety.
I communicated with Dr. Beasley who has no objections to adding Wellbutrin which I will order beginning tomorrow morning.
Psychiatry will follow.
[2025-04-06 12:09] LABS: Glucose - Point of Care 117 mg/dl (70-99)
--- NOTE | 2025-04-06 12:20 | PTCARENOTE ---
Assumed care of patient at beginning of this shift from previous RN. Patient with flat affect, needs encouragement to converse. Was seen by WOC who did wound care with the exception of the R foot. Cereal Popper in to change that dressing; tasha
applied. Psychiatrist in to see patient. Family member currently at bedside. See worklist for full assessment and vital signs.
--- NOTE | 2025-04-06 13:50 | W.PN.POD ---
Today's Communication
Today's Communication
Patient stable per podiatry
Assessment / Plan
-
S/p Rt foot necrotic tissue debridement and bone culture sent to pathology POD #2.
Rt heel stable eschar
PAD
Diabetic vascular disease
Multiple bone resections Rt foot.
Plan : Patient seen at bedside
Resolved leukocytosis
Changed surgical dressings, applied Santyl, adaptic, dry gauze dressings
Keep the Rt foot elevated at all times.
Rt heel off loading boots at night time
Will have nursing to change dressings to RT foot once daily
Abx per ID
Subjective
Chief Complaint
Right foot necrotic wound with osteomyelitis to Rt 1st and 5th metatarsals.
Subjective
Patient seen at bedside, doing ok, no new complaints offered.
Stable vital signs. Rt foot dressings with minimal strike through bleeding noted.
No fever, chills, no acute distress.
Objective
Temp Pulse Resp BP Pulse Ox
97.8 F 71 15 120/58 99
04/06/25 11:02 04/06/25 11:00 04/06/25 11:00 04/06/25 11:00 04/06/25 11:00
04/06/25 03:28
04/06/25 03:28
Vital Signs and Lab results were reviewed.
Rt foot warm to touch, No edema
Rt foot TMA site surgically debrided area with partial good tissue noted, part of the wound noted to have slough, wound with minimal bloody oozing, no purulence, no foul smell, no crepitus or any signs of abscess.
Wound probing medial aspect at 1st metatarsal and 3rd metatarsal areas. Remaining TMA site covered with granulation tissue.
Rt heel with stable dry eschar about 3 cm x 2.5 cm, no local erythema, no purulence, no SOI
[2025-04-06] MEDS: DESITIN MAXIMUM STRENGTH PASTE 1 APPLIC TOPICAL ×2 (13:58→19:39)
[2025-04-06] MEDS: NOVOLOG FLEXPEN-LOW RESISTANCE 1 UNITS SC (16:50)
[2025-04-06 17:00] LABS: Glucose - Point of Care 169 mg/dl (70-99)
[2025-04-06] MEDS: CRESTOR 20 MG PO (17:21)
--- NOTE | 2025-04-06 18:19 | PTCARENOTE ---
Patient transferred to [facility] with all belongings via stretcher, including eyedrops and insulin pen; report given to Mio.
[2025-04-06] MEDS: ROXICODONE 5 MG PO (19:26)
[2025-04-06 21:41] LABS: Glucose - Point of Care 225 mg/dl (70-99)
[2025-04-07] MEDS: ZOSYN 100 IV ×4 (02:08→20:05)
[2025-04-07] MEDS: VANCOCIN 530 MG IV (05:41)
[2025-04-07 06:00] VITALS: BMI 24.7
[2025-04-07 06:02] LABS: Hematocrit 23.0 % (39.0-52.0); Hemoglobin 7.7 g/dL (13.0-18.0); Mean Corp Hgb Conc. 33.5 g/dL (33.0-37.0); Mean Corpuscular Volume 85.5 fL (80.0-94.0); Platelet Count 415 10^3/uL (130-400); Red Cell Dist. Width 17.2 % (11.5-14.5)
[2025-04-07 06:23] LABS: Blood Urea Nitrogen 17 mg/dl (9-20); Calcium 8.8 mg/dl (8.4-10.2); Carbon Dioxide 24 mmol/L (22-30); Chloride 108 mmol/L (98-107); Estimated Creatinine Clearance 107 ml/min; Glucose 102 mg/dl (70-99); Potassium 3.3 mmol/L (3.5-5.1); Sodium 137 mmol/L (135-145); eGFR > 60.00
[2025-04-07] MEDS: SANTYL OINTMENT 1 APPLIC TOPICAL (06:48)
[2025-04-07] MEDS: ATROPINE SULFATE 1% DROPS 1 DROP LEFT EYE ×2 (06:49→20:00)
[2025-04-07] MEDS: TRUSOPT 2% OPHTHALMIC SOLUTION 1 DROP LEFT EYE ×2 (06:49→20:00)
[2025-04-07] MEDS: ALPHAGAN 0.2% EYE DROPS 1 DROP LEFT EYE ×2 (06:49→20:01)
[2025-04-07] MEDS: PRED FORTE 1% EYE DROPS 1 DROP LEFT EYE ×4 (06:49→22:04)
[2025-04-07] MEDS: TIMOPTIC 0.5% OPHTHALMIC SOLUTION 1 DROP LEFT EYE ×2 (06:49→20:00)
[2025-04-07] MEDS: ZESTRIL 20 MG PO (06:53)
[2025-04-07] MEDS: FLOMAX 0.8 MG PO (06:54)
[2025-04-07] MEDS: PROTONIX 40 MG PO (06:54)
[2025-04-07] MEDS: VISBIOME 1 CAP PO (06:54)
[2025-04-07] MEDS: APRESOLINE 50 MG PO ×3 (06:54→22:04)
[2025-04-07] MEDS: WELLBUTRIN XL (24 hour extended release) 150 MG PO (06:54)
[2025-04-07] MEDS: DIFLUCAN 400 MG PO (06:54)
[2025-04-07] MEDS: MUCINEX 600 MG PO ×2 (06:55→19:59)
[2025-04-07] MEDS: ZOLOFT 25 MG PO (06:55)
[2025-04-07] MEDS: NORVASC 10 MG PO (06:55)
[2025-04-07] MEDS: CATAPRES 0.1 MG PO (06:55)
[2025-04-07] MEDS: NEURONTIN 300 MG PO ×3 (06:55→22:04)
[2025-04-07] MEDS: HEPARIN 5000 UNITS SC ×2 (06:56→19:59)
[2025-04-07 06:57] VITALS: BP 124/69
[2025-04-07] MEDS: DESITIN MAXIMUM STRENGTH PASTE 1 APPLIC TOPICAL ×2 (06:58→20:06)
[2025-04-07] MEDS: EFFIENT 10 MG PO (07:01)
[2025-04-07] MEDS: LOW STRENGTH ASPIRIN 81 MG PO (07:01)
[2025-04-07 07:47] LABS: Glucose - Point of Care 104 mg/dl (70-99)
[2025-04-07] MEDS: NOVOLOG FLEXPEN-LOW RESISTANCE SC ×2 (07:47→12:14)
[2025-04-07] MEDS: GLUCOPHAGE XR EXTENDED RELEASE 750 MG PO (08:25)
[2025-04-07] MEDS: LANTUS 0.08 UNITS SC (08:25)
[2025-04-07] MEDS: SODIUM BICARBONATE 650 MG PO ×3 (08:25→22:04)
[2025-04-07] MEDS: FARXIGA 10 MG PO (08:25)
--- NOTE | 2025-04-07 08:39 | W.PN.HOSP.TC ---
Today's Communication/Plan
-
see plan
Assessment / Plan
Assessment / Plan
Admission summary: 59 yo man with hx IDDM, essential HTN, CKD, PAD s/p left AKA 07/06 and s/p right TMA 01/06 admitted 02/13-02/22 for acute osteomyelitis of right metatarsal amputation (s/p limflow procedure discharged 6 weeks
Vanc/Ertapenem/Fluconazole) admitted again 03/03-03/08 for lethargy, LINDY (s/p correa catheter, IV Vanc changed to IV Daptomycin) and completed antibiotics 03/26/25 then with worsening shortness of breath and hypoxia over the weekend found to have
multifocal pneumonia.
Gen: continues to remain NAD, AAOx3.
Eyes: EOMI, PERRLA, no scleral icterus.
Neck: supple.
CV: remains RRR, +S1/S2, no m/r/g.
Resp: CTAB anteriorly, no rales, wheezes, or rhonchi.
Abd: +BS, soft, NT, ND
Skin: No rashes. R foot with gauze dressing
Neuro: CN 2-12 intact, non-focal.
Psych: Normal mood and affect.
04/04/25 16:45 Foot - Right Tissue Culture - Preliminary
Pseudomonas aeruginosa
Enterococcus species
Coagulase neg. staphylococcus
04/04/25 16:45 Foot - Right Gram Stain - Preliminary
04/04/25 16:45 Foot - Right Wound Culture - Preliminary
Pseudomonas aeruginosa
Enterococcus species
Coagulase neg. staphylococcus
04/04/25 16:45 Foot - Right Gram Stain - Preliminary
04/04/25 16:45 Foot - Right Anaerobic Culture - Preliminary
Culture pending. Anaerobic cultures are examined after 3
days incubation. Additional information to follow.
03/28/25 10:34 Blood/Venous Blood Culture - Final
No Growth - Final Report
03/28/25 09:28 Blood/Venous Blood Culture - Final
No Growth - Final Report
03/28/25 23:31 Nose MRSA Screen - Final
No Methicillin Resistant Staphylococcus aureus isolated.
03/28/25 23:31 Urine Legionella Urinary Antigen - Final
Negative for Legionella pneumophila Serogroup 1 antigen.
A negative result does not rule out the possiblity of
Legionella infection due to other serogroups or species of
Legionella. Clinical correlation is recommended.
03/28/25 23:31 Urine Streptococcus pneumoniae Antigen (M - Final
Negative for Streptococcus pneumoniae antigen.
A negative result does not exclude infection with
Streptococcus pneumoniae. Clinical correlation is
recommended.
03/28/25 10:34 Nasal Swab Influenza Types A & B (MCKAY) - Final
Negative for Influenza A & B, NAAT
Negative results must be combined with clinical observations
and patient history.
Nucleic Acid Amplification test (NAAT)performed on the
[employer] NOW platform.
03/28/25 09:28 Nasal Swab Influenza Types A & B ([facility]CKAY) - Final
Test repeatedly invalid.
Nucleic Acid Amplification test (NAAT)performed on the
[employer] NOW platform.
Echo 03/30:
1. Hyperdynamic left ventricular systolic function with mild left ventricular hypertrophy (septal wall). No left ventricular outflow tract gradient.
2. Dilated right ventricle with normal systolic function.
3. Aortic sclerosis without stenosis.
4. Limited evaluation of the tricuspid valve is normal.
5. There is a protruding echobright non-mobile density in the left ventricular outflow tract just below or at the valve plane most consistent with calcification. If clinical suspicion persists, serial imaging vs CHRISTOPHER can be done in further
evaluation.
MRI R foot 04/04/25: Transmetatarsal amputations. Acute osteomyelitis at the resection margins of the first and fifth metatarsals. Bone marrow edema without overt T1 hypointense marrow replacement in the second, third, and fourth metatarsals, for
which considerations include reactive edema versus the early changes of osteomyelitis. No evidence for septic arthritis. No drainable soft tissue fluid collection/abscess.
PAD status post left AKA (07/06) and right TMA (01/06)
-OM at right TMA amputation site status post 6 weeks IV antibiotics (Dapto/Ertapenem) completed 03/26.
-cont ASA/Prasugrel
-wound care/PT/OT
-Podiatry performed Right foot debridement with bone culture form Rt 1st metatarsal in the OR on 04/04/25
-cont Vanco/Zosyn as per ID
-follow intra-op Cxs and path (see above, polymicrobial)
-Of note, on Fluconazole for 6 months unless pt has further resection (at this time cont Fluconazole as per ID, discussed with Dr. Boucher 04/07)
-acute blood loss anemia due to surgery s/p 2U pRBCs
Acute hypoxemic respiratory failure due to multifocal pneumonia:
-Flu/COVID NEG
-was on 6L NC O2, now weaned to RA
-just prior to admission pt had completed a course of Dapto/Ertapenem for OM of R TMA site.
-BCxs NGTD
-was on Cefepime/Doxy, then transitioned to Levaquin with plan for completion 04/03
-now on Zosyn/Vanco for R foot OM
DM2:
-a1c 5.7%
-had hypoglycemia, now resolved
-cont Lantus at reduced dose, premeal Novolog stopped, SSI now low-res
-Metformin/Farxiga started
-manager welding following
Other problems:
Thoughts of not wanting to be alive: psych saw in c/s, no longer on 1:1
Hyponatremia, mild, resolved
Chronic metabolic acidosis: resolved s/p IV NaHCO3, now started on PO NaHCO3
Hypokalemia, replete
Essential HTN: cont Norvasc/Clonidine/Hydralazine/Lisinopril
HLD: cont statin
Anemia of chronic disease
Anxiety: cont Zoloft
BPH: cont flomax
FULL/Heparin
Anticipated Discharge: > 48 hours
Subjective/Interval History
-
Date of Service: April 07, 2025
Objective Data
-
Labs:
Laboratory Results
04/07/25
05:40
WBC 13.1 H
Hgb 7.7 L
Hct 23.0 L
Plt Count 415 H
Sodium 137
Potassium 3.3 L
Chloride 108 H
Carbon Dioxide 24
BUN 17
Creatinine 0.8
Glucose 102 H
Calcium 8.8
Vital Signs:
Vital Signs
Temp Pulse Resp BP Pulse Ox
98.4 F 82 14 124/69 98
04/07/25 06:57 04/07/25 06:57 04/07/25 06:57 04/07/25 06:57 04/07/25 06:57
I&O
04/06/25 04/07/25 04/08/25
06:59 06:59 06:59
Intake Total 3961 / 3961 1720 / 1720
Output Total 1959 / 1959 4025 / 4025
Balance 2000 -2304 / -2304
--- NOTE | 2025-04-07 09:29 | PHA.VAN.FU ---
Vancomycin Assessment / Plan
- Assessment
Renal Function: Stable
WBC's are: Stable
In the past 24 hrs, patient has been: Afebrile
Concomitant Antimicrobials: Piperacillin-tazobactam; fluconazole
- Monitoring Plan
Peak Level: 04/08 at 0930
Trough Level: 04/09 at 0530
- Follow Up
Pharmacy will continue to follow.
Vancomycin Follow UP
- -
Patient Age: 59
Patient Sex: Male
Vancomycin Day #: 4
Indication: Bone And Joint
Requesting Provider: Dr. Boucher
Pertinent Antimicrobial Allergies:
no pertinent antimicrobial allergies
Height / Weight:
Height 5 ft 11 in
Actual Weight 80.314 kg
Pertinent Past Medical History: DM 2, PAD, L. AKA, R. TMA
- Vital Signs / Lab Results
Temp Pulse Resp BP Pulse Ox
98.4 F 82 14 124/69 98
04/07/25 06:57 04/07/25 06:57 04/07/25 06:57 04/07/25 06:57 04/07/25 06:57
Lab Results - Hematology
04/05/25 04/06/25 04/07/25
05:15 03:28 05:40
WBC 13.9 H 13.8 H 13.1 H
Lab Results - Chemistry
04/05/25 04/06/25 04/07/25
05:15 03:28 05:40
BUN 25 H 22 H 17
Creatinine 0.8 0.8 0.8
Estimated Creat Clear 107 107 107
Albumin 2.4 L
Microbiology Results
04/04/25 16:45 Tissue Culture - Preliminary
Foot - Right Pseudomonas aeruginosa
Enterococcus species
Coagulase neg. staphylococcus
Gram Stain - Preliminary
04/04/25 16:45 Wound Culture - Preliminary
Foot - Right Pseudomonas aeruginosa
Enterococcus species
Coagulase neg. staphylococcus
Gram Stain - Preliminary
04/04/25 16:45 Anaerobic Culture - Preliminary
Foot - Right Culture pending. Anaerobic cultures are examined after 3
days incubation. Additional information to follow.
Therapeutic Drug Monitoring
Random Vancomycin 18.0 ug/ml 04/05/25 05:15
[2025-04-07] MEDS: KCL 40 MEQ PO (09:44)
[2025-04-07 12:13] LABS: Glucose - Point of Care 142 mg/dl (70-99)
--- NOTE | 2025-04-07 12:30 | W.PN.UPDATE ---
Update Note
Progress Note Update
Seen for follow-up of depression in man with diabetes with recent amputations and infections. This morning Wellbutrin XL 150 mg. was added to Zoloft (sertraline) at my suggestion. Has tolerated the medicine, his mother's main concern is that it
could be constipating. His BP should be watched with this chanage as well.
His nephew trimmed his jovel. Mother at bedside. He seemed more depressed today -- did not make consistent eye contact and seemed more flat. 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
about being in a hospital on . Reviewed the positive aspects of Wellbutrin -- no weight gain, no effect on blood sugar, no sexual side-effects, no withdrawal syndrome, no effect on sodium.
Psychiatry will follow.
[2025-04-07 15:18] VITALS: BP 115/61
[2025-04-07 15:44] LABS: Glucose - Point of Care 150 mg/dl (70-99)
[2025-04-07] MEDS: NOVOLOG FLEXPEN-LOW RESISTANCE 1 UNITS SC (16:10)
[2025-04-07] MEDS: CRESTOR 20 MG PO (17:44)
[2025-04-07 21:39] LABS: Glucose - Point of Care 170 mg/dl (70-99)
[2025-04-07 23:41] VITALS: BP 121/70
[2025-04-08] MEDS: ZOSYN 100 IV ×4 (02:31→21:35)
[2025-04-08] MEDS: SANTYL OINTMENT 1 APPLIC TOPICAL (05:45)
[2025-04-08] MEDS: DESITIN MAXIMUM STRENGTH PASTE 1 APPLIC TOPICAL ×2 (05:45→20:38)
[2025-04-08 05:57] VITALS: BMI 24.9
[2025-04-08 06:22] LABS: Hematocrit 22.9 % (39.0-52.0); Hemoglobin 7.6 g/dL (13.0-18.0); Mean Corp Hgb Conc. 33.2 g/dL (33.0-37.0); Mean Corpuscular Volume 86.4 fL (80.0-94.0); Platelet Count 384 10^3/uL (130-400); Red Cell Dist. Width 17.2 % (11.5-14.5)
[2025-04-08] MEDS: VANCOCIN 530 MG IV (06:41)
[2025-04-08 06:42] LABS: Blood Urea Nitrogen 15 mg/dl (9-20); Calcium 8.5 mg/dl (8.4-10.2); Carbon Dioxide 25 mmol/L (22-30); Chloride 108 mmol/L (98-107); Estimated Creatinine Clearance 123 ml/min; Glucose 93 mg/dl (70-99); Potassium 3.5 mmol/L (3.5-5.1); Sodium 136 mmol/L (135-145); eGFR > 60.00
[2025-04-08 07:30] VITALS: BP 138/68
[2025-04-08 08:32] LABS: Glucose - Point of Care 90 mg/dl (70-99)
[2025-04-08] MEDS: NOVOLOG FLEXPEN-LOW RESISTANCE SC ×3 (08:35→16:19)
[2025-04-08] MEDS: PROTONIX 40 MG PO (08:56)
[2025-04-08] MEDS: MUCINEX 600 MG PO ×2 (08:56→20:37)
[2025-04-08] MEDS: NEURONTIN 300 MG PO ×3 (08:56→21:41)
[2025-04-08] MEDS: DIFLUCAN 400 MG PO (08:56)
[2025-04-08] MEDS: FLOMAX 0.8 MG PO (08:56)
[2025-04-08] MEDS: APRESOLINE 50 MG PO ×3 (08:57→21:40)
[2025-04-08] MEDS: CATAPRES 0.1 MG PO (08:57)
[2025-04-08] MEDS: FARXIGA 10 MG PO (08:57)
[2025-04-08] MEDS: VISBIOME 1 CAP PO (08:57)
[2025-04-08] MEDS: GLUCOPHAGE XR EXTENDED RELEASE 750 MG PO (08:57)
[2025-04-08] MEDS: ZESTRIL 20 MG PO (08:57)
[2025-04-08] MEDS: NORVASC 10 MG PO (08:57)
[2025-04-08] MEDS: LOW STRENGTH ASPIRIN 81 MG PO (08:57)
[2025-04-08] MEDS: SODIUM BICARBONATE 650 MG PO (08:57)
[2025-04-08] MEDS: WELLBUTRIN XL (24 hour extended release) 150 MG PO (08:57)
[2025-04-08] MEDS: HEPARIN 5000 UNITS SC ×2 (08:57→20:36)
[2025-04-08] MEDS: EFFIENT 10 MG PO (08:58)
[2025-04-08] MEDS: ZOLOFT 25 MG PO (08:58)
[2025-04-08] MEDS: TRUSOPT 2% OPHTHALMIC SOLUTION 1 DROP LEFT EYE ×2 (08:58→20:39)
[2025-04-08] MEDS: TIMOPTIC 0.5% OPHTHALMIC SOLUTION 1 DROP LEFT EYE ×2 (08:58→20:39)
[2025-04-08] MEDS: ALPHAGAN 0.2% EYE DROPS 1 DROP LEFT EYE ×2 (08:58→20:38)
[2025-04-08] MEDS: PRED FORTE 1% EYE DROPS 1 DROP LEFT EYE ×4 (08:58→21:41)
[2025-04-08] MEDS: LANTUS 0.08 UNITS SC (08:59)
[2025-04-08] MEDS: ATROPINE SULFATE 1% DROPS 1 DROP LEFT EYE ×2 (08:59→20:38)
--- NOTE | 2025-04-08 09:00 | W.PN.HOSP.TC ---
Today's Communication/Plan
-
see plan
Assessment / Plan
Assessment / Plan
Gen: NAD, AAOx3.
Eyes: EOMI, PERRLA, no scleral icterus.
Neck: supple.
CV: continues to remain RRR, +S1/S2, no m/r/g.
Resp: remains CTAB anteriorly, no rales, wheezes, or rhonchi.
Abd: +BS, soft, NT, ND
Skin: No rashes.
Neuro: CN 2-12 intact, non-focal.
Psych: Normal mood and affect.
04/04/25 16:45 Foot - Right Anaerobic Culture - Preliminary
Culture pending. Anaerobic cultures are examined after 3
days incubation. Additional information to follow.
04/04/25 16:45 Foot - Right Wound Culture - Preliminary
Pseudomonas aeruginosa
Enterococcus faecalis - VRE
Coagulase neg. staphylococcus
04/04/25 16:45 Foot - Right Gram Stain - Preliminary
04/04/25 16:45 Foot - Right Tissue Culture - Final
Pseudomonas aeruginosa
Enterococcus faecalis - VRE
Staphylococcus simulans
04/04/25 16:45 Foot - Right Gram Stain - Final
03/28/25 10:34 Blood/Venous Blood Culture - Final
No Growth - Final Report
03/28/25 09:28 Blood/Venous Blood Culture - Final
No Growth - Final Report
03/28/25 23:31 Nose MRSA Screen - Final
No Methicillin Resistant Staphylococcus aureus isolated.
03/28/25 23:31 Urine Legionella Urinary Antigen - Final
Negative for Legionella pneumophila Serogroup 1 antigen.
A negative result does not rule out the possiblity of
Legionella infection due to other serogroups or species of
Legionella. Clinical correlation is recommended.
03/28/25 23:31 Urine Streptococcus pneumoniae Antigen (M - Final
Negative for Streptococcus pneumoniae antigen.
A negative result does not exclude infection with
Streptococcus pneumoniae. Clinical correlation is
recommended.
03/28/25 10:34 Nasal Swab Influenza Types A & B ([facility]CKAY) - Final
Negative for Influenza A & B, NAAT
Negative results must be combined with clinical observations
and patient history.
Nucleic Acid Amplification test (NAAT)performed on the
[employer] ID NOW platform.
03/28/25 09:28 Nasal Swab Influenza Types A & B ([facility]AY) - Final
Test repeatedly invalid.
Nucleic Acid Amplification test (NAAT)performed on the
[employer] NOW platform.
Echo 03/30:
1. Hyperdynamic left ventricular systolic function with mild left ventricular hypertrophy (septal wall). No left ventricular outflow tract gradient.
2. Dilated right ventricle with normal systolic function.
3. Aortic sclerosis without stenosis.
4. Limited evaluation of the tricuspid valve is normal.
5. There is a protruding echobright non-mobile density in the left ventricular outflow tract just below or at the valve plane most consistent with calcification. If clinical suspicion persists, serial imaging vs CHRISTOPHER can be done in further
evaluation.
MRI R foot 04/04/25: Transmetatarsal amputations. Acute osteomyelitis at the resection margins of the first and fifth metatarsals. Bone marrow edema without overt T1 hypointense marrow replacement in the second, third, and fourth metatarsals, for
which considerations include reactive edema versus the early changes of osteomyelitis. No evidence for septic arthritis. No drainable soft tissue fluid collection/abscess.
PAD status post left AKA (07/06) and right TMA (01/06)
-OM at right TMA amputation site status post 6 weeks IV antibiotics (Dapto/Ertapenem) completed 03/26.
-cont ASA/Prasugrel
-Podiatry performed Right foot debridement with bone culture form Rt 1st metatarsal in the OR on 04/04/25
-cont Vanco/Zosyn as per ID
-follow intra-op Cxs and path (see above, polymicrobial)
-Of note, on Fluconazole for 6 months unless pt has further resection (at this time cont Fluconazole as per ID, discussed with Dr. Boucher 04/07)
-acute blood loss anemia due to surgery s/p 2U pRBCs
-wound care/PT/OT
Acute hypoxemic respiratory failure due to multifocal pneumonia:
-Flu/COVID NEG
-was on 6L NC O2, now weaned to RA
-just prior to admission pt had completed a course of Dapto/Ertapenem for OM of R TMA site.
-BCxs NGTD
-was on Cefepime/Doxy, then transitioned to Levaquin with plan for completion 04/03 (now on Zosyn/Vanco for R foot OM)
DM2:
-a1c 5.7%
-had hypoglycemia, now resolved
-cont Lantus at reduced dose, premeal Novolog stopped, SSI now low-res
-Metformin/Farxiga started
-special educator following
Other problems:
Depression: cont Wellbutrin XL and Zoloft as per psych
Hyponatremia, mild, resolved
Chronic metabolic acidosis: resolved s/p IV and PO NaHCO3, stop PO NaHCO3 as HCO3- 25 now
Hypokalemia, replete
Essential HTN: cont Norvasc/Clonidine/Hydralazine/Lisinopril
HLD: cont statin
Anemia of chronic disease
Anxiety: cont Zoloft
BPH: cont flomax
FULL/Heparin
Anticipated Discharge: 24 - 48 hours
Subjective/Interval History
-
Date of Service: April 08, 2025
No new complaints.
Objective Data
-
Labs:
Laboratory Results
04/08/25
05:57
WBC 12.0 H
Hgb 7.6 L
Hct 22.9 L
Plt Count 384
Sodium 136
Potassium 3.5
Chloride 108 H
Carbon Dioxide 25
BUN 15
Creatinine 0.7
Glucose 93
Calcium 8.5
Vital Signs:
Vital Signs
Temp Pulse Resp BP Pulse Ox
98.1 F 89 18 121/70 98
04/07/25 23:41 04/07/25 23:41 04/07/25 23:41 04/07/25 23:41 04/07/25 23:41
I&O
04/07/25 04/08/25 04/09/25
06:59 06:59 06:59
Intake Total 1720 / 1720 2120 / 2120
Output Total 4025 / 4025 2250 / 2250
Balance -2305 / -2305 -130 / -130
--- NOTE | 2025-04-08 10:12 | PHA.VAN.FU ---
Vancomycin Assessment / Plan
- Assessment
Renal Function: Stable
WBC's are: Trending Down
In the past 24 hrs, patient has been: Afebrile
Concomitant Antimicrobials: piperacillin-tazobactam
- Assessment - Therapeutic Drug Monitoring
Extrapolated Cmax (mcg/mL): 32.4
Peak level was drawn: Appropriately (approx. 1.5 hrs after infusion)
- Dosing Plan
Continue: vancomycin 1500 mg Q24H
- Monitoring Plan
Trough Level: 12.27 @ 0530
- Follow Up
Pharmacy will continue to follow.
Vancomycin Follow UP
- -
Patient Age: 59
Patient Sex: Male
Vancomycin Day #: 5
Indication: Bone And Joint
Requesting Provider: Dr. Boucher
Pertinent Antimicrobial Allergies:
no pertinent antimicrobial allergies
Height / Weight:
Height 5 ft 11 in
Actual Weight 80.966 kg
Pertinent Past Medical History: DM 2, PAD, L. AKA, R. TMA
- Vital Signs / Lab Results
Temp Pulse Resp BP Pulse Ox
98.9 F 81 18 138/60 96
04/08/25 07:30 04/08/25 08:57 04/08/25 07:30 04/08/25 08:57 04/08/25 08:25
Lab Results - Hematology
04/06/25 04/07/25 04/08/25
03:28 05:40 05:57
WBC 13.8 H 13.1 H 12.0 H
Lab Results - Chemistry
04/06/25 04/07/25 04/08/25
03:28 05:40 05:57
BUN 22 H 17 15
Creatinine 0.8 0.8 0.7
Estimated Creat Clear 107 107 123
Microbiology Results
04/04/25 16:45 Anaerobic Culture - Preliminary
Foot - Right Culture pending. Anaerobic cultures are examined after 3
days incubation. Additional information to follow.
04/04/25 16:45 Wound Culture - Preliminary
Foot - Right Pseudomonas aeruginosa
Enterococcus faecalis - VRE
Coagulase neg. staphylococcus
Gram Stain - Preliminary
04/04/25 16:45 Tissue Culture - Final
Foot - Right Pseudomonas aeruginosa
Enterococcus faecalis - VRE
Staphylococcus simulans
Gram Stain - Final
Therapeutic Drug Monitoring
Vancomycin Peak 32.4 ug/ml (18-26) H 04/08/25 09:28
Random Vancomycin 18.0 ug/ml 04/05/25 05:15
[2025-04-08 11:58] LABS: Glucose - Point of Care 125 mg/dl (70-99)
--- NOTE | 2025-04-08 12:10 | W.PN.UPDATE ---
Update Note
Progress Note Update
Seen for follow-up of depression. Has now had two doses of Wellbutrin XL 150 mg. in the morning in addition to low-dose Zoloft. He is tolerating it well without constipation, tachycardia or hypertension. He does not see himself as particularly
depressed and is not suicidal. Better eye contact today. He is planning to go to [facility] for rehab following his discharge. Speech is slow but well-organized. Pleasant. He was very pleased to have relatives visit yesterday.
Psychiatry will continue to follow. No medication changes made.
--- NOTE | 2025-04-08 12:57 | W.PN.ID1 ---
Date of Service
Date of Service: April 08, 2025
Today's Communication
- maintain PICC
- MRI suspected osteomyelitis of 1st, 5th digits and possible osteomyelitis of remaining digits
- culture of the bone of the 1st metatarsal - Pseudomonas, VRE, S simulans
- continue vanc/zosyn 6 week total course 04/04-05/15
- continue fluconazole 6 months total 02/17-08/17/25
Assessment / Plan
# Leukocytosis- suspect necrotic non-healing R foot TMA source
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
- recently completed 6 weeks of IV daptomycin and ertapenem
- maintain PICC
- MRI suspected osteomyelitis of 1st, 5th digits and possible osteomyelitis of remaining digits
- culture of the bone of the 1st metatarsal - Pseudomonas, VRE, S simulans
- continue vanc/zosyn 6 week total course 04/04-05/15
- continue fluconazole 6 months total 02/17-08/17/25
Chief Complaint
-: Other (osteomyelitis, dry gangrene)
Subjective / Review of Systems
afebrile
bp stable
no events overnight
Vital Signs / Physical Exam
Vital Signs
Vital Signs
Temp Pulse Resp BP Pulse Ox
98.9 F 81 18 138/60 95
04/08/25 07:30 04/08/25 08:57 04/08/25 07:30 04/08/25 08:57 04/08/25 10:40
Physical Exam
Constitutional: No Acute Distress
Cardiovascular: Regular Rate and S1/S2; Negative Murmur or Rub
Pulmonary: Clear and Symmetric; Negative Wheezes or Rales
Gastrointestinal: Soft, Non Tender, Non Distended and Normal Bowel Sounds
Skin: Warm and Dry; Negative Rash or Jaundice
Wound: Other (dressing clean, dry, intact)
Objective Data
Lab Data
Lab Results
04/08/25 05:57
04/08/25 05:57
Estimated Creat Clear 123 ml/min 04/08/25 05:57
Lactic Acid 0.9 mmol/L (0.7-2.0) 03/28/25 09:29
Total Bilirubin 0.4 mg/dl (0.2-1.3) 04/05/25 05:15
AST 18 U/L (17-59) 04/05/25 05:15
ALT 32 U/L (0-50) 04/05/25 05:15
Alkaline Phosphatase 157 U/L (38-126) H 04/05/25 05:15
Most recent labs reviewed.
Micro Results:
04/04/25 16:45 Anaerobic Culture - Preliminary
Foot - Right Culture pending. Anaerobic cultures are examined after 3
days incubation. Additional information to follow.
04/04/25 16:45 Wound Culture - Preliminary
Foot - Right Pseudomonas aeruginosa
Enterococcus faecalis - VRE
Coagulase neg. staphylococcus
Gram Stain - Preliminary
04/04/25 16:45 Tissue Culture - Final
Foot - Right Pseudomonas aeruginosa
Enterococcus faecalis - VRE
Staphylococcus simulans
Gram Stain - Final
03/28/25 10:34 Blood Culture - Final
Blood/Venous No Growth - Final Report
03/28/25 09:28 Blood Culture - Final
Blood/Venous No Growth - Final Report
03/28/25 23:31 MRSA Screen - Final
Nose No Methicillin Resistant Staphylococcus aureus isolated.
03/28/25 23:31 Legionella Urinary Antigen - Final
Urine Negative for Legionella pneumophila Serogroup 1 antigen.
A negative result does not rule out the possiblity of
Legionella infection due to other serogroups or species of
Legionella. Clinical correlation is recommended.
Streptococcus pneumoniae Antigen (M - Final
Negative for Streptococcus pneumoniae antigen.
A negative result does not exclude infection with
Streptococcus pneumoniae. Clinical correlation is
recommended.
03/28/25 10:34 Influenza Types A & B ([facility]AY) - Final
Nasal Swab Negative for Influenza A & B, NAAT
Negative results must be combined with clinical observations
and patient history.
Nucleic Acid Amplification test (NAAT)performed on the
[employer] NOW platform.
03/28/25 09:28 Influenza Types A & B ([facility]CKAY) - Final
Nasal Swab Test repeatedly invalid.
Nucleic Acid Amplification test (NAAT)performed on the
[employer] ID NOW platform.
Care Review
Plan reviewed with: Physician (Dr lois noguera)
[2025-04-08 13:59] VITALS: BP 125/63; BP 127/67; PULSE 90; PULSE 94; O2SAT 100; O2SAT 99
[2025-04-08 15:22] VITALS: BP 127/65
[2025-04-08 16:20] LABS: Glucose - Point of Care 104 mg/dl (70-99)
[2025-04-08 16:30] VITALS: BP 130/73
--- NOTE | 2025-04-08 17:15 | CM ---
Spoke with patient in room .
Reviewed PT OT with patient .
PAc data reviewed Pt requested [facility]. ,Referral in care port.
Will need auth
PLAN Locate SNF obtain Auth
[2025-04-08] MEDS: CRESTOR 20 MG PO (17:42)
--- NOTE | 2025-04-08 18:10 | PTCARENOTE ---
Pt came to floor around 1630 to room 327.Pt remained in bed and beds were switched, leaving pt in bed he came up with. Pt pleasant and has no complaints at this time. Nursing shift assessment performed. Dinner tray ordered for pt. Call walker within
reach.
[2025-04-08 21:54] LABS: Glucose - Point of Care 137 mg/dl (70-99)
[2025-04-09] VITALS: BP 138/72
[2025-04-09] MEDS: ZOSYN 100 IV ×4 (02:20→20:22)
[2025-04-09 05:07] LABS: Hematocrit 23.3 % (39.0-52.0); Hemoglobin 7.7 g/dL (13.0-18.0); Mean Corp Hgb Conc. 33.0 g/dL (33.0-37.0); Mean Corpuscular Volume 87.9 fL (80.0-94.0); Platelet Count 366 10^3/uL (130-400); Red Cell Dist. Width 17.1 % (11.5-14.5)
[2025-04-09 05:24] LABS: Blood Urea Nitrogen 14 mg/dl (9-20); Calcium 8.7 mg/dl (8.4-10.2); Carbon Dioxide 26 mmol/L (22-30); Chloride 106 mmol/L (98-107); Estimated Creatinine Clearance 123 ml/min; Glucose 95 mg/dl (70-99); Potassium 3.4 mmol/L (3.5-5.1); Sodium 137 mmol/L (135-145); eGFR > 60.00
[2025-04-09] MEDS: VANCOCIN 530 MG IV (05:44)
[2025-04-09 07:00] VITALS: BP 137/69
--- NOTE | 2025-04-09 07:53 | PHA.VAN.FU ---
Vancomycin Assessment / Plan
- Assessment
Renal Function: Stable
WBC's are: Trending Down
In the past 24 hrs, patient has been: Afebrile
Concomitant Antimicrobials: ZOSYN, DIFLUCAN
- Assessment - Therapeutic Drug Monitoring
Extrapolated Cmax (mcg/mL): 33.9
Peak level was drawn: Appropriately
Extrapolated Cmin (mcg/mL): 15.7
Trough Drawn: Appropriately
Levels were drawn: At steady state
Calculated AUC (mcg*h/mL): 569
Calculated ke: 0.0342
Calculated half life (H): 20.3
Calculated Vd (L): 77.19
Calculated Vanc CL (ml/min): 43.96
- Dosing Plan
Continue: 1500MG Q24H
- Monitoring Plan
Level(s) appropriate: Recheck trough at minimum of weekly intervals, Repeat sooner for changes in renal function or clinical status
- Follow Up
Pharmacy will continue to follow.
Vancomycin Follow UP
- -
Patient Age: 59
Patient Sex: Male
Vancomycin Day #: 6
Indication: Bone And Joint
Requesting Provider: Dr. Boucher
Pertinent Antimicrobial Allergies:
no pertinent antimicrobial allergies
Height / Weight:
Height 5 ft 11 in
Actual Weight 80.966 kg
Pertinent Past Medical History: DM 2, PAD, L. AKA, R. TMA
- Vital Signs / Lab Results
Temp Pulse Resp BP Pulse Ox
98.7 F 87 18 138/72 97
04/09/25 00:00 04/09/25 00:00 04/09/25 00:00 04/09/25 00:00 04/09/25 00:00
Lab Results - Hematology
04/07/25 04/08/25 04/09/25
05:40 05:57 04:31
WBC 13.1 H 12.0 H 11.9 H
Lab Results - Chemistry
04/07/25 04/08/25 04/09/25
05:40 05:57 04:31
BUN 17 15 14
Creatinine 0.8 0.7 0.7
Estimated Creat Clear 107 123 123
Microbiology Results
04/04/25 16:45 Anaerobic Culture - Preliminary
Foot - Right Culture pending. Anaerobic cultures are examined after 3
days incubation. Additional information to follow.
04/04/25 16:45 Wound Culture - Preliminary
Foot - Right Pseudomonas aeruginosa
Enterococcus faecalis - VRE
Coagulase neg. staphylococcus
Gram Stain - Preliminary
04/04/25 16:45 Tissue Culture - Final
Foot - Right Pseudomonas aeruginosa
Enterococcus faecalis - VRE
Staphylococcus simulans
Gram Stain - Final
Therapeutic Drug Monitoring
Vancomycin Peak 32.4 ug/ml (18-26) H 04/08/25 09:28
Vancomycin Trough 16.9 ug/ml (5-20) 04/09/25 04:31
Random Vancomycin 18.0 ug/ml 04/05/25 05:15
[2025-04-09 08:34] LABS: Glucose - Point of Care 92 mg/dl (70-99)
[2025-04-09] MEDS: NOVOLOG FLEXPEN-LOW RESISTANCE SC ×3 (09:04→17:47)
[2025-04-09] MEDS: NEURONTIN 300 MG PO ×3 (09:05→22:22)
[2025-04-09] MEDS: GLUCOPHAGE XR EXTENDED RELEASE 750 MG PO (09:05)
[2025-04-09] MEDS: PROTONIX 40 MG PO (09:06)
[2025-04-09] MEDS: APRESOLINE 50 MG PO ×3 (09:06→22:22)
[2025-04-09] MEDS: FLOMAX 0.8 MG PO (09:06)
[2025-04-09] MEDS: WELLBUTRIN XL (24 hour extended release) 150 MG PO (09:06)
[2025-04-09] MEDS: VISBIOME 1 CAP PO (09:06)
[2025-04-09] MEDS: ZESTRIL 20 MG PO (09:07)
[2025-04-09] MEDS: NORVASC 10 MG PO (09:07)
[2025-04-09] MEDS: DIFLUCAN 400 MG PO (09:07)
[2025-04-09] MEDS: ZOLOFT 25 MG PO (09:07)
[2025-04-09] MEDS: LOW STRENGTH ASPIRIN 81 MG PO (09:07)
[2025-04-09] MEDS: MUCINEX 600 MG PO (09:07)
[2025-04-09] MEDS: HEPARIN 5000 UNITS SC ×2 (09:08→20:22)
[2025-04-09] MEDS: CATAPRES 0.1 MG PO (09:08)
[2025-04-09] MEDS: FARXIGA 10 MG PO (09:09)
[2025-04-09] MEDS: EFFIENT 10 MG PO (09:09)
[2025-04-09] MEDS: LANTUS 0.08 UNITS SC (09:13)
[2025-04-09] MEDS: ATROPINE SULFATE 1% DROPS 1 DROP LEFT EYE ×2 (09:25→20:23)
[2025-04-09] MEDS: PRED FORTE 1% EYE DROPS 1 DROP LEFT EYE ×4 (09:26→22:22)
[2025-04-09] MEDS: TIMOPTIC 0.5% OPHTHALMIC SOLUTION 1 DROP LEFT EYE ×2 (09:26→20:22)
[2025-04-09] MEDS: ALPHAGAN 0.2% EYE DROPS 1 DROP LEFT EYE ×2 (09:26→20:23)
[2025-04-09] MEDS: TRUSOPT 2% OPHTHALMIC SOLUTION 1 DROP LEFT EYE ×2 (09:26→20:22)
[2025-04-09] MEDS: DESITIN MAXIMUM STRENGTH PASTE 1 APPLIC TOPICAL ×2 (09:27→20:32)
--- NOTE | 2025-04-09 10:00 | W.PN.HOSP.TC ---
Today's Communication/Plan
-
d/c
Assessment / Plan
Assessment / Plan
Gen: NAD, AAOx3.
Eyes: EOMI, PERRLA, no scleral icterus.
Neck: supple.
CV: RRR, +S1/S2, no m/r/g.
Resp: continues to remain CTAB anteriorly, no rales, wheezes, or rhonchi.
Abd: +BS, soft, NT, ND
Skin: No rashes.
Neuro: remains CN 2-12 intact, non-focal.
Psych: Normal mood and affect.
04/04/25 16:45 Foot - Right Anaerobic Culture - Preliminary
Culture pending. Anaerobic cultures are examined after 3
days incubation. Additional information to follow.
04/04/25 16:45 Foot - Right Wound Culture - Preliminary
Pseudomonas aeruginosa
Enterococcus faecalis - VRE
Coagulase neg. staphylococcus
04/04/25 16:45 Foot - Right Gram Stain - Preliminary
04/04/25 16:45 Foot - Right Tissue Culture - Final
Pseudomonas aeruginosa
Enterococcus faecalis - VRE
Staphylococcus simulans
04/04/25 16:45 Foot - Right Gram Stain - Final
03/28/25 10:34 Blood/Venous Blood Culture - Final
No Growth - Final Report
03/28/25 09:28 Blood/Venous Blood Culture - Final
No Growth - Final Report
03/28/25 23:31 Nose MRSA Screen - Final
No Methicillin Resistant Staphylococcus aureus isolated.
03/28/25 23:31 Urine Legionella Urinary Antigen - Final
Negative for Legionella pneumophila Serogroup 1 antigen.
A negative result does not rule out the possiblity of
Legionella infection due to other serogroups or species of
Legionella. Clinical correlation is recommended.
03/28/25 23:31 Urine Streptococcus pneumoniae Antigen (M - Final
Negative for Streptococcus pneumoniae antigen.
A negative result does not exclude infection with
Streptococcus pneumoniae. Clinical correlation is
recommended.
03/28/25 10:34 Nasal Swab Influenza Types A & B ([facility]) - Final
Negative for Influenza A & B, NAAT
Negative results must be combined with clinical observations
and patient history.
Nucleic Acid Amplification test (NAAT)performed on the
[employer] NOW platform.
03/28/25 09:28 Nasal Swab Influenza Types A & B ([facility]) - Final
Test repeatedly invalid.
Nucleic Acid Amplification test (NAAT)performed on the
[employer] NOW platform.
Echo 03/30:
1. Hyperdynamic left ventricular systolic function with mild left ventricular hypertrophy (septal wall). No left ventricular outflow tract gradient.
2. Dilated right ventricle with normal systolic function.
3. Aortic sclerosis without stenosis.
4. Limited evaluation of the tricuspid valve is normal.
5. There is a protruding echobright non-mobile density in the left ventricular outflow tract just below or at the valve plane most consistent with calcification. If clinical suspicion persists, serial imaging vs CHRISTOPHER can be done in further
evaluation.
MRI R foot 04/04/25: Transmetatarsal amputations. Acute osteomyelitis at the resection margins of the first and fifth metatarsals. Bone marrow edema without overt T1 hypointense marrow replacement in the second, third, and fourth metatarsals, for
which considerations include reactive edema versus the early changes of osteomyelitis. No evidence for septic arthritis. No drainable soft tissue fluid collection/abscess.
PAD status post left AKA (07/06) and right TMA (01/06)
-OM at right TMA amputation site status post 6 weeks IV antibiotics (Dapto/Ertapenem) completed 03/26.
-cont ASA/Prasugrel
-Podiatry performed Right foot debridement with bone culture form Rt 1st metatarsal in the OR on 04/04/25
-Bone culture first metatarsal grew Pseudomonas, VRE, S similans
-cont Vanco/Zosyn through 05/15/25 and fluconazole through 08/17/25 as per ID
-acute blood loss anemia due to surgery s/p 2U pRBCs
-wound care/PT/OT
Acute hypoxemic respiratory failure due to multifocal pneumonia:
-Flu/COVID NEG
-was on 6L NC O2, now weaned to RA
-just prior to admission pt had completed a course of Dapto/Ertapenem for OM of R TMA site.
-BCxs NGTD
-completed a course of abx (was on Cefepime/Doxy, then transitioned to Levaquin with plan for completion 04/03 but now on Zosyn/Vanco for R foot OM)
DM2:
-a1c 5.7%
-had hypoglycemia, now resolved
-cont Lantus at reduced dose, premeal Novolog stopped, SSI now low-res
-Metformin/Farxiga started
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
Other problems:
Depression: cont Wellbutrin XL and Zoloft as per psych
Hyponatremia, mild, resolved
Chronic metabolic acidosis: resolved s/p IV and PO NaHCO3
Hypokalemia, replete
Essential HTN: cont Norvasc/Clonidine/Hydralazine/Lisinopril
HLD: cont statin
Anemia of chronic disease
Anxiety: cont Zoloft
BPH: with chronic correa cath, POA, cont flomax
FULL/Heparin
Remains medically cleared for d/c since 04/08/25AM, case management aware.
Anticipated Discharge: Today
Subjective/Interval History
-
Date of Service: April 09, 2025
Objective Data
-
Labs:
Laboratory Results
04/09/25
04:31
WBC 11.9 H
Hgb 7.7 L
Hct 23.3 L
Plt Count 366
Sodium 137
Potassium 3.4 L
Chloride 106
Carbon Dioxide 26
BUN 14
Creatinine 0.7
Glucose 95
Calcium 8.7
Vital Signs:
Vital Signs
Temp Pulse Resp BP Pulse Ox
98.7 F 91 18 137/65 96
04/09/25 07:00 04/09/25 07:00 04/09/25 07:00 04/09/25 09:07 04/09/25 07:00
I&O
04/08/25 04/09/25 04/10/25
06:59 06:59 06:59
Intake Total 2120 / 2120 460 / 460
Output Total 2250 / 2250 2650 / 2650
Balance -130 / -130 -2190 / -2190
[2025-04-09] MEDS: KCL 40 MEQ PO (10:52)
--- NOTE | 2025-04-09 12:04 | W.PN.ID1 ---
Date of Service
Date of Service: April 09, 2025
Today's Communication
- culture of the bone of the 1st metatarsal - Pseudomonas, VRE, S simulans
- continue vanc/zosyn 6 week total course 04/04-05/15
- continue fluconazole 6 months total 02/17-08/17/25
- follow up with me in about 6 -8 weeks
Assessment / Plan
# Leukocytosis- suspect necrotic non-healing R foot TMA source
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
- recently completed 6 weeks of IV daptomycin and ertapenem
- maintain PICC
- MRI suspected osteomyelitis of 1st, 5th digits and possible osteomyelitis of remaining digits
- culture of the bone of the 1st metatarsal - Pseudomonas, VRE, S simulans
- continue vanc/zosyn 6 week total course 04/04-05/15
- continue fluconazole 6 months total 02/17-08/17/25
- follow up with me in about 6 -8 weeks
Chief Complaint
-: Other (osteomyelitis, dry gangrene)
Subjective / Review of Systems
afebrile
bp stable
no events overnight
Vital Signs / Physical Exam
Vital Signs
Vital Signs
Temp Pulse Resp BP Pulse Ox
98.7 F 91 18 137/65 96
04/09/25 07:00 04/09/25 07:00 04/09/25 07:00 04/09/25 09:07 04/09/25 07:00
Physical Exam
Constitutional: No Acute Distress
Cardiovascular: Regular Rate and S1/S2; Negative Murmur or Rub
Pulmonary: Clear and Symmetric; Negative Wheezes or Rales
Gastrointestinal: Soft, Non Tender, Non Distended and Normal Bowel Sounds
Skin: Warm and Dry; Negative Rash or Jaundice
Objective Data
Lab Data
Lab Results
04/09/25 04:31
04/09/25 04:31
Estimated Creat Clear 123 ml/min 04/09/25 04:31
Lactic Acid 0.9 mmol/L (0.7-2.0) 03/28/25 09:29
Total Bilirubin 0.4 mg/dl (0.2-1.3) 04/05/25 05:15
AST 18 U/L (17-59) 04/05/25 05:15
ALT 32 U/L (0-50) 04/05/25 05:15
Alkaline Phosphatase 157 U/L (38-126) H 04/05/25 05:15
Most recent labs reviewed.
Micro Results:
04/04/25 16:45 Wound Culture - Final
Foot - Right Pseudomonas aeruginosa
Enterococcus faecalis - VRE
Coagulase neg. staphylococcus
Gram Stain - Final
04/04/25 16:45 Anaerobic Culture - Final
Foot - Right NO ANAEROBES ISOLATED
04/04/25 16:45 Tissue Culture - Final
Foot - Right Pseudomonas aeruginosa
Enterococcus faecalis - VRE
Staphylococcus simulans
Gram Stain - Final
03/28/25 10:34 Blood Culture - Final
Blood/Venous No Growth - Final Report
03/28/25 09:28 Blood Culture - Final
Blood/Venous No Growth - Final Report
03/28/25 23:31 MRSA Screen - Final
Nose No Methicillin Resistant Staphylococcus aureus isolated.
03/28/25 23:31 Legionella Urinary Antigen - Final
Urine Negative for Legionella pneumophila Serogroup 1 antigen.
A negative result does not rule out the possiblity of
Legionella infection due to other serogroups or species of
Legionella. Clinical correlation is recommended.
Streptococcus pneumoniae Antigen (M - Final
Negative for Streptococcus pneumoniae antigen.
A negative result does not exclude infection with
Streptococcus pneumoniae. Clinical correlation is
recommended.
03/28/25 10:34 Influenza Types A & B ([facility]) - Final
Nasal Swab Negative for Influenza A & B, NAAT
Negative results must be combined with clinical observations
and patient history.
Nucleic Acid Amplification test (NAAT)performed on the
[employer] NOW platform.
03/28/25 09:28 Influenza Types A & B ([facility]) - Final
Nasal Swab Test repeatedly invalid.
Nucleic Acid Amplification test (NAAT)performed on the
[employer] NOW platform.
[2025-04-09 13:05] LABS: Glucose - Point of Care 83 mg/dl (70-99)
[2025-04-09] MEDS: SANTYL OINTMENT 1 APPLIC TOPICAL (14:57)
[2025-04-09 15:00] VITALS: BP 117/66
--- NOTE | 2025-04-09 15:08 | CM ---
Chart reviewed and plan is for skilled placement [place] [facility] [facility] for 4 [facility], per notes they are looking for a new facility, [place] facility which [place] a long process and skilled placement at [facility]
and [facility]. Referrals sent no determinations yet.
Plan; Skilled placement.
[2025-04-09] MEDS: CRESTOR 20 MG PO (17:22)
[2025-04-09 17:40] LABS: Glucose - Point of Care 97 mg/dl (70-99)
--- NOTE | 2025-04-09 18:28 | PTCARENOTE ---
patient denies complaints, tolerating diet, turns with assist x2 using wedge and fiber filled boot on right heel, vss, will continue to monitor.
[2025-04-09] MEDS: MUCINEX PO (20:30)
[2025-04-09 20:45] LABS: Glucose - Point of Care 108 mg/dl (70-99)
[2025-04-09 23:00] VITALS: BP 128/66
[2025-04-10] MEDS: ZOSYN 100 IV ×4 (01:46→19:51)
[2025-04-10] MEDS: VANCOCIN 530 MG IV (05:34)
[2025-04-10 07:00] VITALS: BP 130/65
--- NOTE | 2025-04-10 08:01 | W.PN.HOSP.TC ---
Today's Communication/Plan
-
see plan
Assessment / Plan
Assessment / Plan
Gen: remains NAD, AAOx3.
Eyes: EOMI, PERRLA, no scleral icterus.
Neck: supple.
CV: RRR, +S1/S2, no m/r/g.
Resp: CTAB anteriorly, no rales, wheezes, or rhonchi.
Abd: +BS, soft, NT, ND
Skin: No rashes.
Neuro: continues to remain CN 2-12 intact, non-focal.
Psych: Normal mood and affect.
04/04/25 16:45 Foot - Right Wound Culture - Final
Pseudomonas aeruginosa
Enterococcus faecalis - VRE
Coagulase neg. staphylococcus
04/04/25 16:45 Foot - Right Gram Stain - Final
04/04/25 16:45 Foot - Right Anaerobic Culture - Final
NO ANAEROBES ISOLATED
04/04/25 16:45 Foot - Right Tissue Culture - Final
Pseudomonas aeruginosa
Enterococcus faecalis - VRE
Staphylococcus simulans
04/04/25 16:45 Foot - Right Gram Stain - Final
03/28/25 10:34 Blood/Venous Blood Culture - Final
No Growth - Final Report
03/28/25 09:28 Blood/Venous Blood Culture - Final
No Growth - Final Report
03/28/25 23:31 Nose MRSA Screen - Final
No Methicillin Resistant Staphylococcus aureus isolated.
03/28/25 23:31 Urine Legionella Urinary Antigen - Final
Negative for Legionella pneumophila Serogroup 1 antigen.
A negative result does not rule out the possiblity of
Legionella infection due to other serogroups or species of
Legionella. Clinical correlation is recommended.
03/28/25 23:31 Urine Streptococcus pneumoniae Antigen (M - Final
Negative for Streptococcus pneumoniae antigen.
A negative result does not exclude infection with
Streptococcus pneumoniae. Clinical correlation is
recommended.
03/28/25 10:34 Nasal Swab Influenza Types A & B ([facility]) - Final
Negative for Influenza A & B, NAAT
Negative results must be combined with clinical observations
and patient history.
Nucleic Acid Amplification test (NAAT)performed on the
[employer] NOW platform.
03/28/25 09:28 Nasal Swab Influenza Types A & B ([facility]) - Final
Test repeatedly invalid.
Nucleic Acid Amplification test (NAAT)performed on the
[employer] NOW platform.
Echo 03/30:
1. Hyperdynamic left ventricular systolic function with mild left ventricular hypertrophy (septal wall). No left ventricular outflow tract gradient.
2. Dilated right ventricle with normal systolic function.
3. Aortic sclerosis without stenosis.
4. Limited evaluation of the tricuspid valve is normal.
5. There is a protruding echobright non-mobile density in the left ventricular outflow tract just below or at the valve plane most consistent with calcification. If clinical suspicion persists, serial imaging vs CHRISTOPHER can be done in further
evaluation.
MRI R foot 04/04/25: Transmetatarsal amputations. Acute osteomyelitis at the resection margins of the first and fifth metatarsals. Bone marrow edema without overt T1 hypointense marrow replacement in the second, third, and fourth metatarsals, for
which considerations include reactive edema versus the early changes of osteomyelitis. No evidence for septic arthritis. No drainable soft tissue fluid collection/abscess.
PAD status post left AKA (07/06) and right TMA (01/06)
-OM at right TMA amputation site status post 6 weeks IV antibiotics (Dapto/Ertapenem) completed 03/26.
-cont ASA/Prasugrel
-Podiatry performed Right foot debridement with bone culture form Rt 1st metatarsal in the OR on 04/04/25
-Bone culture first metatarsal grew Pseudomonas, VRE, S similans
-cont Vanco/Zosyn through 05/15/25 and fluconazole through 08/17/25 as per ID
-acute blood loss anemia due to surgery s/p 2U pRBCs
-wound care/PT/OT
Acute hypoxemic respiratory failure due to multifocal pneumonia:
-Flu/COVID NEG
-was on 6L NC O2, now weaned to RA
-just prior to admission pt had completed a course of Dapto/Ertapenem for OM of R TMA site.
-BCxs NGTD
-completed a course of abx (was on Cefepime/Doxy, then transitioned to Levaquin with plan for completion 04/03 but now on Zosyn/Vanco for R foot OM)
DM2:
-a1c 5.7%
-had hypoglycemia, now resolved
-cont Lantus at reduced dose, premeal Novolog stopped, SSI now low-res
-Metformin/Farxiga started
-family educator following
Other problems:
Depression: cont Wellbutrin XL and Zoloft as per psych
Hyponatremia, mild, resolved
Chronic metabolic acidosis: resolved s/p IV and PO NaHCO3
Hypokalemia, replete
Essential HTN: cont Norvasc/Clonidine/Hydralazine/Lisinopril
HLD: cont statin
Anemia of chronic disease
Anxiety: cont Zoloft
BPH: with chronic correa cath, POA, cont flomax
FULL/Heparin
Remains medically cleared for d/c since 04/08/25AM, case management aware.
Anticipated Discharge: Today
Subjective/Interval History
-
Date of Service: April 10, 2025
Objective Data
-
Labs:
Laboratory Results
04/10/25
06:00
WBC Pending
Hgb Pending
Hct Pending
Plt Count Pending
Sodium Pending
Potassium Pending
Chloride Pending
Carbon Dioxide Pending
BUN Pending
Creatinine Pending
Glucose Pending
Calcium Pending
Vital Signs:
Vital Signs
Temp Pulse Resp BP Pulse Ox
98.5 F 86 16 128/66 96
04/09/25 23:00 04/09/25 23:00 04/09/25 23:00 04/09/25 23:00 04/09/25 23:00
I&O
04/09/25 04/10/25 04/11/25
06:59 06:59 06:59
Intake Total 460 / 460 1640 / 1640
Output Total 2650 / 2650 2225 / 2225
Balance -2190 / -2190 -585 / -585
[2025-04-10 08:10] LABS: Glucose - Point of Care 80 mg/dl (70-99)
[2025-04-10] MEDS: NOVOLOG FLEXPEN-LOW RESISTANCE SC ×3 (08:28→16:46)
[2025-04-10] MEDS: WELLBUTRIN XL (24 hour extended release) 150 MG PO (08:32)
[2025-04-10] MEDS: EFFIENT 10 MG PO (08:32)
[2025-04-10] MEDS: KCL 20 MEQ PO (08:32)
[2025-04-10] MEDS: FARXIGA 10 MG PO (08:32)
[2025-04-10] MEDS: VISBIOME 1 CAP PO (08:32)
[2025-04-10] MEDS: NEURONTIN 300 MG PO ×3 (08:32→21:48)
[2025-04-10] MEDS: PROTONIX 40 MG PO (08:33)
[2025-04-10] MEDS: HEPARIN 5000 UNITS SC ×2 (08:33→19:50)
[2025-04-10] MEDS: ZESTRIL 20 MG PO (08:33)
[2025-04-10] MEDS: FLOMAX 0.8 MG PO (08:33)
[2025-04-10] MEDS: CATAPRES 0.1 MG PO (08:33)
[2025-04-10] MEDS: NORVASC 10 MG PO (08:33)
[2025-04-10] MEDS: DIFLUCAN 400 MG PO (08:33)
[2025-04-10] MEDS: GLUCOPHAGE XR EXTENDED RELEASE 750 MG PO (08:33)
[2025-04-10] MEDS: APRESOLINE 50 MG PO ×3 (08:33→21:48)
[2025-04-10] MEDS: LOW STRENGTH ASPIRIN 81 MG PO (08:33)
[2025-04-10] MEDS: MUCINEX 600 MG PO (08:33)
[2025-04-10] MEDS: ZOLOFT 25 MG PO (08:33)
[2025-04-10] MEDS: SANTYL OINTMENT 1 APPLIC TOPICAL (08:34)
[2025-04-10] MEDS: LANTUS 0.08 UNITS SC (08:34)
[2025-04-10] MEDS: ATROPINE SULFATE 1% DROPS 1 DROP LEFT EYE ×2 (08:35→19:51)
[2025-04-10] MEDS: PRED FORTE 1% EYE DROPS 1 DROP LEFT EYE ×4 (08:35→21:49)
[2025-04-10] MEDS: TIMOPTIC 0.5% OPHTHALMIC SOLUTION 1 DROP LEFT EYE ×2 (08:36→19:51)
[2025-04-10] MEDS: TRUSOPT 2% OPHTHALMIC SOLUTION 1 DROP LEFT EYE ×2 (08:36→19:51)
[2025-04-10] MEDS: DESITIN MAXIMUM STRENGTH PASTE 1 APPLIC TOPICAL ×2 (08:37→19:51)
[2025-04-10] MEDS: ALPHAGAN 0.2% EYE DROPS 1 DROP LEFT EYE ×2 (08:37→19:51)
[2025-04-10 09:29] LABS: Hematocrit 24.1 % (39.0-52.0); Hemoglobin 7.9 g/dL (13.0-18.0); Mean Corp Hgb Conc. 32.8 g/dL (33.0-37.0); Mean Corpuscular Volume 89.6 fL (80.0-94.0); Platelet Count 368 10^3/uL (130-400); Red Cell Dist. Width 17.2 % (11.5-14.5)
[2025-04-10 09:57] LABS: Blood Urea Nitrogen 11 mg/dl (9-20); Calcium 8.7 mg/dl (8.4-10.2); Carbon Dioxide 27 mmol/L (22-30); Chloride 108 mmol/L (98-107); Estimated Creatinine Clearance > 125 ml/min; Glucose 76 mg/dl (70-99); Potassium 3.4 mmol/L (3.5-5.1); Sodium 137 mmol/L (135-145); eGFR > 60.00
--- NOTE | 2025-04-10 09:59 | PHA.VAN.FU ---
Vancomycin Assessment / Plan
- Assessment
Renal Function: Stable
WBC's are: Trending Down
In the past 24 hrs, patient has been: Afebrile
Concomitant Antimicrobials: ZOSYN, DIFLUCAN
- Dosing Plan
Continue: 1500MG Q24H
- Monitoring Plan
Level(s) appropriate: Recheck trough at minimum of weekly intervals, Repeat sooner for changes in renal function or clinical status
- Follow Up
Pharmacy will continue to follow.
Vancomycin Follow UP
- -
Patient Age: 59
Patient Sex: Male
Vancomycin Day #: 7
Indication: Bone And Joint
Requesting Provider: Dr. Boucher
Pertinent Antimicrobial Allergies:
no pertinent antimicrobial allergies
Height / Weight:
Height 5 ft 11 in
Actual Weight 80.966 kg
Pertinent Past Medical History: DM 2, PAD, L. AKA, R. TMA
- Vital Signs / Lab Results
Temp Pulse Resp BP Pulse Ox
98.4 F 87 17 130/65 98
04/10/25 07:00 04/10/25 07:00 04/10/25 07:00 04/10/25 07:00 04/10/25 07:00
Lab Results - Hematology
04/08/25 04/09/25 04/10/25
05:57 04:31 09:23
WBC 12.0 H 11.9 H 11.1 H
Lab Results - Chemistry
04/08/25 04/09/25 04/10/25
05:57 04:31 09:23
BUN 15 14 11
Creatinine 0.7 0.7 0.6 L
Estimated Creat Clear 123 123 > 125
Microbiology Results
04/04/25 16:45 Wound Culture - Final
Foot - Right Pseudomonas aeruginosa
Enterococcus faecalis - VRE
Coagulase neg. staphylococcus
Gram Stain - Final
04/04/25 16:45 Anaerobic Culture - Final
Foot - Right NO ANAEROBES ISOLATED
Therapeutic Drug Monitoring
Vancomycin Peak 32.4 ug/ml (18-26) H 04/08/25 09:28
Vancomycin Trough 16.9 ug/ml (5-20) 04/09/25 04:31
Random Vancomycin 18.0 ug/ml 04/05/25 05:15
[2025-04-10 11:49] LABS: Glucose - Point of Care 98 mg/dl (70-99)
[2025-04-10] MEDS: CITROMA 300 ML PO (12:57)
--- NOTE | 2025-04-10 13:52 | W.PN.POD ---
Today's Communication
Today's Communication
Patient will f/u in my office in 2 wks after discharge
Patient stable per podiatry to D/C
Assessment / Plan
-
S/p Rt foot necrotic tissue debridement and bone culture sent to pathology POD #6.
Rt heel stable eschar
PAD
Diabetic vascular disease
Multiple bone resections Rt foot.
Plan : Patient seen at bedside.
Changed surgical dressings, applied Santyl, adaptic, dry gauze dressings.
Patient possibly d/c to a rehab
Cont with Daily Santyl ointment, dry gauze and mary lou to Rt foot
Rt heel off loading boots when in bed and at night time
Will have nursing to change dressings to RT foot once daily in hosp
Abx per ID
Subjective
Chief Complaint
Right foot necrotic wound with osteomyelitis to Rt 1st and 5th metatarsals.
Subjective
Patient seen at bedside, doing ok, no new complaints offered.
Stable vital signs. Rt foot dressings clean, dry, intact.
No fever, chills, no acute distress.
Objective
Temp Pulse Resp BP Pulse Ox
98.4 F 87 17 130/65 98
04/10/25 07:00 04/10/25 07:00 04/10/25 07:00 04/10/25 07:00 04/10/25 07:00
04/10/25 09:23
04/10/25 09:23
Vital Signs and Lab results were reviewed.
Rt foot warm to touch, No edema
Rt foot TMA site surgically debrided area with partial healthy good tissue noted, part of the wound with slough and minimal dry necrotic tissue, no purulence, no foul smell, no crepitus or any signs of abscess.
No exposed bone,
Rt heel with stable dry eschar about 3 cm x 2.5 cm, no local erythema, no purulence, no SOI
[2025-04-10 15:00] VITALS: BP 127/72
[2025-04-10 16:35] LABS: Glucose - Point of Care 98 mg/dl (70-99)
--- NOTE | 2025-04-10 17:26 | W.PN.UPDATE ---
Update Note
Progress Note Update
Pt seen & evaluated at bedside, chart reviewed. Laying in bed comfortably, pleasant on approach. Stable, reports doing well - denies side effects from current psychotropics. Is expecting transfer to rehab tomorrow and is looking forward to it.
Denies acute depression, denies SI, future oriented. Speech is slow and with increased latency, however this appears to be current baseline.
Continue Wellbutrin 150mg and sertraline 25mg
[2025-04-10] MEDS: CRESTOR 20 MG PO (17:36)
[2025-04-10] MEDS: MUCINEX PO (19:51)
[2025-04-10 21:30] LABS: Glucose - Point of Care 79 mg/dl (70-99)
[2025-04-10] MEDS: DULCOLAX 10 MG RECTAL (21:49)
[2025-04-10 23:00] VITALS: BP 144/80
[2025-04-11] MEDS: ZOSYN 100 IV ×4 (02:06→21:19)
[2025-04-11] MEDS: VANCOCIN 530 MG IV (05:53)
[2025-04-11 07:07] VITALS: BP 136/75
--- NOTE | 2025-04-11 08:27 | W.PN.HOSP.TC ---
Today's Communication/Plan
-
Medically cleared for discharge
Assessment / Plan
Assessment / Plan
Impression:
Mr. Elio Chapman is a 59 yo man with hx IDDM, essential HTN, CKD, PAD s/p left AKA 07/06 and s/p right TMA 01/06 admitted 02/13-02/22 for acute osteomyelitis of right metatarsal amputation (s/p limflow procedure discharged 6 weeks
Vanc/Ertapenem/Fluconazole) admitted again 03/03-03/08 for lethargy, LINDY (s/p correa catheter, IV Vanc changed to IV Daptomycin) and completed antibiotics 03/26/25 then with worsening shortness of breath and hypoxia over the weekend found to have
multifocal pneumonia.
Triage VS: T 97.3, P 102, RR 30, BP 139/71, SpO2 81%
patient required high flow in the ER with increasing oxygen requirements
Patient continued to improve, oxygen weaned to 2 L.
Patient weaned to room air, pulmonology stopped steroid.
Diabetic management consulted.
Patient noted to have worsened leukocytosis, required podiatry consulted infectious ease consult.
Patient status post Right foot debridement with bone culture form Rt 1st metatarsal (04/04)
culture of the bone of the 1st metatarsal - Pseudomonas, VRE, S simulans
- continue vanc/zosyn 6 week total course 04/04/2025-05/15/2025
- continue fluconazole 6 months total 02/17/2025-08/17/25
Assessment/plan:
Acute Osteomyelitis
History of osteomyelitis at right TMA amputation site; completed 6 weeks IV antibiotics on 03/26.
Podiatry and Infectious Disease consulted.
Status post right foot debridement with bone culture from right 1st metatarsal (04/04).
Restarted antibiotics (Zosyn, Vancomycin) post-debridement.
Bone culture: Pseudomonas, VRE, Staphylococcus simulans.
Continue Vancomycin/Zosyn for 6-week total course (04/04/202505/15/2025).
Continue Fluconazole for 6-month total course (02/17/202508/17/2025).
Acute Hypoxic Respiratory Failure
Secondary to above; now resolved.
Patient on room air.
Multifocal Pneumonia
Flu and COVID negative.
Initially treated with IV Cefepime and Doxycycline for atypical coverage.
Completed pneumonia antibiotics; currently on Vancomycin and Zosyn for osteomyelitis.
ID and Pulmonary consulted.
Echocardiogram (03/30):
Hyperdynamic LV systolic function with mild LV hypertrophy.
Dilated RV with normal systolic function.
Aortic sclerosis without stenosis.
Non-mobile echobright density in LVOT likely calcification; consider serial imaging or CHRISTOPHER if clinically indicated.
NIDDM
A1c: 5.7%.
Hypoglycemia episodes.
Adjusted regimen:
Continue Lantus at reduced dose.
Pre-meal Novolog stopped; SSI now low-res.
Started Metformin and Farxiga.
adult educator following.
Hypokalemia
Repleted; resolved.
CKD Stage III
stable
Metabolic Acidosis
resolved
Essential Hypertension
[employer]AND [employer] regimen:
Amlodipine 10 mg PO QD (with hold parameters).
Clonidine 0.1 mg PO QD.
Hydralazine 50 mg PO TID (with hold parameters).
Lisinopril 20 mg PO QD�c
Held STR[employer] HCTZ.
Monitor BP and titrate back to home regimen as tolerated.
Chronic Anemia
Stable.
Hyperlipidemia
Continue STR[employer] statin.
Anxiety
seen by psych
Continue Wellbutrin 150mg and sertraline 25mg
BPH
Continue STR[employer] W[employer] Flomax.
GI Prophylaxis
Start Protonix (patient on Aspirin, Prasugrel, and Heparin SQ).
Code Status: Full Code.
DVT Prophylaxis: Heparin SQ.
Diet: Regular.
Disposition: Continue antibiotics; medically cleared for discharge once SNF bed available.
Medically cleared since 04/08/25 AM; case management aware.
Total time spent on today's encounter was 55 minutes which included time spent in counseling the patient/family regarding diagnosis and treatment plan as listed above, goals of care, and symptom management. Case was discussed with nursing staff,
specialists, and care coordinators/case management. All labs and imaging personally reviewed by me. Remainder the time spent in detailed review of previous records, lab data, imaging, and other medical provider documentation.
Part of this note was created using voice recognition system. Occasional wrong word or �sound alike� substitutions may have inadvertently occurred due to the inherent limitations of voice recognition software. If noted kindly bring it to my
attention for correction.
Anticipated Discharge: Today
Subjective/Interval History
-
Date of Service: April 11, 2025
Patient seen and examined at bedside, denies any chest pain or shortness of breath, no abdominal pain, no nausea, no vomiting, no diarrhea or constipation.
Objective Data
-
Vital Signs:
Vital Signs
Temp Pulse Resp BP Pulse Ox
98.1 F 92 16 144/80 97
04/10/25 23:00 04/10/25 23:00 04/10/25 23:00 04/10/25 23:00 04/10/25 23:00
I&O
04/10/25 04/11/25 04/12/25
06:59 06:59 06:59
Intake Total 1640 / 1640 1440 / 1440
Output Total 2225 / 2225 1900 / 1900
Balance -585 / -585 -460 / -460
Physical Exam
-
General: Well Developed, Well Nourished, No Apparent Distress and Comfortable
HEENT: Normocephalic, Atraumatic, Moist Mucous Membranes, No Ptosis, PERRLA and Nose Appears Normal
Respiratory: Rales, Rhonchi and Non Labored Respirations
Cardiac: Regular Rhythm and S1/S2
Breast: Deferred by me
GI: Soft, Nontender, Nondistended and Normal Bowel Sounds
Genito-urinary: No Costovertebral Tender
Musculoskeletal: No Clubbing and Other ( (L AKA, R toe amp))
Skin: Warm
Neuro: Awake, Alert, Oriented, AO x 3 and No Motor Deficits
Psych: Calm
--- NOTE | 2025-04-11 08:29 | PN.DE.MGMTRT ---
Insulin Management
- -
04/11/2025: Diabetes Management follow up
59 year old male admitted 03/29 with progressive shortness of breath and nonproductive cough. CXR/CT obtained indicating bilateral infiltrates concerning for multifocal pneumonia. PMH: HTN, HLD, NIDDM, PAD s/p L AKA 07/06, osteomyelitis of right TMA
01/06, limb flow procedure 02/17/25 with underlying osteomyelitis. Patient is well known to diabetes service, diabetes consult requested today for uncontrolled glucose.
He was initially mildly hypoglycemic but was started on IV steroids contributing to Hyperglycemia.
He was taking Farxiga 10mg daily and Metformin 750mg daily prior to admission, both were held on admission. A1C is 5.4%, Cr 0.9, eGFR >60,
Patient awake, alert, oriented, resting in bed, offers no complaints, able to discuss diabetes care plan, was very pleased to hear that his A1C has come down. States he is working with CM to transfer to [facility] and is hopeful that
he will get a bed there. Mom at bedside.
AC NovoLog discontinued on 04/04; off steroids.
04/05 Lantus dose reduced to 8 units daily in AM with low corrective with meals.
Farxiga and Metformin were resumed post MRI with contrast.
04/10 glucose range 80 to 98, fasting 69 today.
Will STOP Lantus. Cont Farxiga 10mg daily and Metformin 750mg XL
Will follow for further needed adjustments.
Discussed with Nurse. Will cont to follow.
Diabetes History
- -
Type of Diabetes: 2
Pre-Admission Diabetes Regimen
04/10/25
:
Creatinine 0.6 L
Lab Results
Hemoglobin A1c 5.4 % (4.0-5.9) 03/29/25 04:58
Insulin Pump Settings
IP Diabetes Regimen
04/10/25 04/10/25 04/10/25
09: 11:47 16:34
Glucose 76
POC Glucose 98 98
04/10/25
21:28
Glucose
POC Glucose 79
Meal type: Dinner
Meal type: Lunch
Meal type: Breakfast
Amount consumed: 100%
Amount consumed: 100%
Amount consumed: 100%
Patient Education
[2025-04-11 08:32] LABS: Glucose - Point of Care 69 mg/dl (70-99)
[2025-04-11] MEDS: NOVOLOG FLEXPEN-LOW RESISTANCE SC ×3 (08:38→17:54)
[2025-04-11] MEDS: SANTYL OINTMENT 1 APPLIC TOPICAL (08:39)
[2025-04-11] MEDS: HEPARIN 5000 UNITS SC ×2 (08:39→21:17)
[2025-04-11] MEDS: NEURONTIN 300 MG PO ×3 (08:40→22:59)
[2025-04-11] MEDS: ZESTRIL 20 MG PO (08:40)
[2025-04-11] MEDS: LOW STRENGTH ASPIRIN 81 MG PO (08:40)
[2025-04-11] MEDS: DIFLUCAN 400 MG PO (08:40)
[2025-04-11] MEDS: ZOLOFT 25 MG PO (08:40)
[2025-04-11] MEDS: MUCINEX 600 MG PO ×2 (08:40→21:17)
[2025-04-11] MEDS: FLOMAX 0.8 MG PO (08:40)
[2025-04-11] MEDS: VISBIOME 1 CAP PO (08:40)
[2025-04-11] MEDS: PROTONIX 40 MG PO (08:40)
[2025-04-11] MEDS: NORVASC 10 MG PO (08:41)
[2025-04-11] MEDS: EFFIENT 10 MG PO (08:41)
[2025-04-11] MEDS: APRESOLINE 50 MG PO ×3 (08:41→22:59)
[2025-04-11] MEDS: CATAPRES 0.1 MG PO (08:41)
[2025-04-11] MEDS: WELLBUTRIN XL (24 hour extended release) 150 MG PO (08:41)
[2025-04-11] MEDS: PRED FORTE 1% EYE DROPS 1 DROP LEFT EYE ×4 (08:41→23:02)
[2025-04-11] MEDS: KCL 20 MEQ PO (08:41)
[2025-04-11] MEDS: ALPHAGAN 0.2% EYE DROPS 1 DROP LEFT EYE ×2 (08:42→21:15)
[2025-04-11] MEDS: ATROPINE SULFATE 1% DROPS 1 DROP LEFT EYE ×2 (08:42→21:16)
[2025-04-11] MEDS: TIMOPTIC 0.5% OPHTHALMIC SOLUTION 1 DROP LEFT EYE ×2 (08:42→21:18)
[2025-04-11] MEDS: DESITIN MAXIMUM STRENGTH PASTE 1 APPLIC TOPICAL ×2 (08:42→21:16)
[2025-04-11] MEDS: TRUSOPT 2% OPHTHALMIC SOLUTION 1 DROP LEFT EYE ×2 (08:42→21:19)
[2025-04-11] MEDS: LANTUS SC (08:46)
[2025-04-11] MEDS: FARXIGA 10 MG PO (08:50)
[2025-04-11] MEDS: GLUCOPHAGE XR EXTENDED RELEASE 750 MG PO (08:50)
[2025-04-11 08:51] LABS: Glucose - Point of Care 81 mg/dl (70-99)
--- NOTE | 2025-04-11 10:10 | PHA.VAN.FU ---
Vancomycin Assessment / Plan
- Assessment
Renal Function: No New Labs Today
Concomitant Antimicrobials: piperacillin/tazobactam, fluconazole
- Dosing Plan
Continue: Vanc 1500mg Q24H
- Monitoring Plan
Trough Level: 04/12 05:30 - if remains admitted
Will obtain repeat trough tomorrow, if remains admitted as AUC and trough were in upper limits of goal range
Patient with complex dosing history and clearance may waver over time
- Follow Up
Pharmacy will continue to follow.
Vancomycin Follow UP
- -
Patient Age: 59
Patient Sex: Male
Vancomycin Day #: 8
Indication: Bone And Joint
Requesting Provider: Dr. Boucher
Pertinent Antimicrobial Allergies:
no pertinent antimicrobial allergies
Height / Weight:
Height 5 ft 11 in
Actual Weight 80.966 kg
Pertinent Past Medical History: DM 2, PAD, L. AKA, R. TMA
- Vital Signs / Lab Results
Temp Pulse Resp BP Pulse Ox
98.2 F 87 16 136/75 95
04/11/25 07:07 04/11/25 08:40 04/11/25 07:07 04/11/25 08:40 04/11/25 07:07
Lab Results - Hematology
04/09/25 04/10/25
04:31 09:23
WBC 11.9 H 11.1 H
Lab Results - Chemistry
04/09/25 04/10/25
04:31 09:23
BUN 14 11
Creatinine 0.7 0.6 L
Estimated Creat Clear 123 > 125
Microbiology Results
04/04/25 16:45 Wound Culture - Final
Foot - Right Pseudomonas aeruginosa
Enterococcus faecalis - VRE
Coagulase neg. staphylococcus
Gram Stain - Final
04/04/25 16:45 Anaerobic Culture - Final
Foot - Right NO ANAEROBES ISOLATED
Therapeutic Drug Monitoring
Vancomycin Peak 32.4 ug/ml (18-26) H 04/08/25 09:28
Vancomycin Trough 16.9 ug/ml (5-20) 04/09/25 04:31
Random Vancomycin 18.0 ug/ml 04/05/25 05:15
--- NOTE | 2025-04-11 10:37 | CM ---
Pt for SNF placement/LTC while family applies for [facility] for LTC.
Additional referrals sent to [facility], [facility], [facility], [facility], [facility], and [facility].
Pt's mother would like transfer to [facility]. KIRT spoke with Nirmala at [facility] and agreeable to short term admission. Nirmala will contact the [facility] for updates regarding application for [facility].
[2025-04-11 11:46] LABS: Glucose - Point of Care 92 mg/dl (70-99)
--- NOTE | 2025-04-11 13:06 | W.PN.ID1 ---
Date of Service
Date of Service: April 11, 2025
Today's Communication
- continue vanc/zosyn 6 week total course 04/04-05/15
- continue fluconazole 6 months total 02/17-08/17/25
- monthly LFTs
- follow up with me in about 6 -8 weeks
Assessment / Plan
# Leukocytosis- suspect necrotic non-healing R foot TMA source
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
- recently completed 6 weeks of IV daptomycin and ertapenem
- maintain PICC
- MRI suspected osteomyelitis of 1st, 5th digits and possible osteomyelitis of remaining digits
- culture of the bone of the 1st metatarsal - Pseudomonas, VRE, S simulans
- continue vanc/zosyn 6 week total course 04/04-05/15
- continue fluconazole 6 months total 02/17-08/17/25
- monthly LFTs
- follow up with me in about 6 -8 weeks
Chief Complaint
-: Other (osteomyelitis, dry gangrene)
Subjective / Review of Systems
afebrile
bp stable
no events overnight
Vital Signs / Physical Exam
Vital Signs
Vital Signs
Temp Pulse Resp BP Pulse Ox
98.2 F 87 16 136/75 95
04/11/25 07:07 04/11/25 08:40 04/11/25 07:07 04/11/25 08:40 04/11/25 07:07
Physical Exam
Constitutional: No Acute Distress
Cardiovascular: Regular Rate and S1/S2; Negative Murmur or Rub
Pulmonary: Clear and Symmetric; Negative Wheezes or Rales
Gastrointestinal: Soft, Non Tender, Non Distended and Normal Bowel Sounds
Skin: Warm and Dry; Negative Rash or Jaundice
Objective Data
Lab Data
Lab Results
04/10/25 09:23
04/10/25 09:23
Estimated Creat Clear > 125 ml/min 04/10/25 09:23
Lactic Acid 0.9 mmol/L (0.7-2.0) 03/28/25 09:29
Total Bilirubin 0.4 mg/dl (0.2-1.3) 04/05/25 05:15
AST 18 U/L (17-59) 04/05/25 05:15
ALT 32 U/L (0-50) 04/05/25 05:15
Alkaline Phosphatase 157 U/L (38-126) H 04/05/25 05:15
Most recent labs reviewed.
Micro Results:
04/04/25 16:45 Wound Culture - Final
Foot - Right Pseudomonas aeruginosa
Enterococcus faecalis - VRE
Coagulase neg. staphylococcus
Gram Stain - Final
04/04/25 16:45 Anaerobic Culture - Final
Foot - Right NO ANAEROBES ISOLATED
04/04/25 16:45 Tissue Culture - Final
Foot - Right Pseudomonas aeruginosa
Enterococcus faecalis - VRE
Staphylococcus simulans
Gram Stain - Final
03/28/25 10:34 Blood Culture - Final
Blood/Venous No Growth - Final Report
03/28/25 09:28 Blood Culture - Final
Blood/Venous No Growth - Final Report
03/28/25 23:31 MRSA Screen - Final
Nose No Methicillin Resistant Staphylococcus aureus isolated.
03/28/25 23:31 Legionella Urinary Antigen - Final
Urine Negative for Legionella pneumophila Serogroup 1 antigen.
A negative result does not rule out the possiblity of
Legionella infection due to other serogroups or species of
Legionella. Clinical correlation is recommended.
Streptococcus pneumoniae Antigen (M - Final
Negative for Streptococcus pneumoniae antigen.
A negative result does not exclude infection with
Streptococcus pneumoniae. Clinical correlation is
recommended.
03/28/25 10:34 Influenza Types A & B (MCKAY) - Final
Nasal Swab Negative for Influenza A & B, NAAT
Negative results must be combined with clinical observations
and patient history.
Nucleic Acid Amplification test (NAAT)performed on the
[employer] platform.
03/28/25 09:28 Influenza Types A & B (MCKAY) - Final
Nasal Swab Test repeatedly invalid.
Nucleic Acid Amplification test (NAAT)performed on the
[employer] NOW platform.
--- NOTE | 2025-04-11 14:09 | CM ---
CM met with patient and his mother to discuss discharge to [facility]. KIRT spoke with Nirmala who advised that patient is accepted for transfer to SNF at [facility] tomorrow. [facility]irm[facility] was [facility] for L[facility] at [facility].
Pt and his mother notified of acceptance to [facility] tomorrow.
Will need SNF authorization.
[facility]
Accepting physician
[2025-04-11 15:00] VITALS: BP 110/66
[2025-04-11 16:35] VITALS: BP 126/71
[2025-04-11] MEDS: CRESTOR 20 MG PO (16:59)
[2025-04-11 17:54] LABS: Glucose - Point of Care 74 mg/dl (70-99)
[2025-04-11 21:50] LABS: Glucose - Point of Care 100 mg/dl (70-99)
[2025-04-11 23:25] VITALS: BP 126/68
[2025-04-12] MEDS: ZOSYN 100 IV ×2 (02:56→09:43)
[2025-04-12 03:20] LABS: Glucose - Point of Care 94 mg/dl (70-99)
[2025-04-12 05:35] LABS: Hematocrit 22.1 % (39.0-52.0); Hemoglobin 7.4 g/dL (13.0-18.0); Mean Corp Hgb Conc. 33.5 g/dL (33.0-37.0); Mean Corpuscular Volume 90.2 fL (80.0-94.0); Platelet Count 357 10^3/uL (130-400); Red Cell Dist. Width 17.2 % (11.5-14.5)
[2025-04-12 05:59] LABS: Blood Urea Nitrogen 11 mg/dl (9-20); Calcium 8.7 mg/dl (8.4-10.2); Carbon Dioxide 26 mmol/L (22-30); Chloride 106 mmol/L (98-107); Estimated Creatinine Clearance 107 ml/min; Glucose 70 mg/dl (70-99); Magnesium 1.9 mg/dl (1.6-2.3); Potassium 3.6 mmol/L (3.5-5.1); Sodium 136 mmol/L (135-145); eGFR > 60.00
[2025-04-12] MEDS: VANCOCIN 530 MG IV (06:40)
[2025-04-12 07:40] VITALS: BP 123/70
[2025-04-12 08:12] LABS: Glucose - Point of Care 71 mg/dl (70-99)
--- NOTE | 2025-04-12 08:34 | PHA.VAN.FU ---
Vancomycin Assessment / Plan
- Assessment
Renal Function: Stable
WBC's are: WNL
In the past 24 hrs, patient has been: Afebrile
Concomitant Antimicrobials: piperacillin/tazobactam, fluconazole
- Assessment - Trough Based Monitoring
Trough Value: 17
Level Today was: Appropriate
Level Comments: drawn ~23H after 7th maintenance dose
- Dosing Plan
Adjust Regimen to: Vanc 1250mg Q24H
New Regimen Predicts: AUC (486), Peak (28.9), Trough (13.4)
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
- Monitoring Plan
No level(s) ordered at this time: consider next level by 04/18
- Follow Up
Pharmacy will continue to follow.
Vancomycin Follow UP
- -
Patient Age: 59
Patient Sex: Male
Vancomycin Day #: 9
Indication: Bone And Joint
Requesting Provider: Dr. Boucher
Pertinent Antimicrobial Allergies:
no pertinent antimicrobial allergies
Height / Weight:
Height 5 ft 11 in
Actual Weight 80.966 kg
Pertinent Past Medical History: DM 2, PAD, L. AKA, R. TMA
- Vital Signs / Lab Results
Temp Pulse Resp BP Pulse Ox
97.7 F 78 17 123/70 98
04/12/25 07:40 04/12/25 07:40 04/12/25 07:40 04/12/25 07:40 04/12/25 07:40
Lab Results - Hematology
04/10/25 04/12/25
09:23 05:17
WBC 11.1 H 9.1
Lab Results - Chemistry
04/10/25 04/12/25
09:23 05:17
BUN 11 11
Creatinine 0.6 L 0.8
Estimated Creat Clear > 125 107
Therapeutic Drug Monitoring
Vancomycin Peak 32.4 ug/ml (18-26) H 04/08/25 09:28
Vancomycin Trough 17.0 ug/ml (5-20) 04/12/25 05:17
Random Vancomycin 18.0 ug/ml 04/05/25 05:15
--- NOTE | 2025-04-12 08:34 | PN.DE.MGMTRT ---
Insulin Management
- -
04/12/2025: Diabetes Management follow up
59 year old male admitted 03/29 with progressive shortness of breath and nonproductive cough. CXR/CT obtained indicating bilateral infiltrates concerning for multifocal pneumonia. PMH: HTN, HLD, NIDDM, PAD s/p L AKA 07/06, osteomyelitis of right TMA
01/06, limb flow procedure 02/17/25 with underlying osteomyelitis. Patient is well known to diabetes service, diabetes consult requested today for uncontrolled glucose.
He was initially mildly hypoglycemic but was started on IV steroids contributing to Hyperglycemia.
He was taking Farxiga 10mg daily and Metformin 750mg daily prior to admission, both were held on admission. A1C is 5.4%, Cr 0.9, eGFR >60,
Patient awake, alert, oriented, resting in bed, offers no complaints, able to discuss diabetes care plan, was very pleased to hear that his A1C has come down.
AC NovoLog discontinued on 04/04; off steroids.
04/11 glucose range 74 to 100, Lantus stopped.
04/12 Fasting glucose 94 today. Will continue Farxiga 10mg daily and Metformin 750mg XL.
Patient for possible transfer to SNF.
Will follow for further needed adjustments.
Discussed with Nurse. Will cont to follow.
Diabetes History
- -
Type of Diabetes: 2
Pre-Admission Diabetes Regimen
04/12/25
05:17
Creatinine 0.8
Lab Results
Hemoglobin A1c 5.4 % (4.0-5.9) 03/29/25 04:58
Insulin Pump Settings
IP Diabetes Regimen
04/11/25 04/11/25 04/11/25
08:50 11:45 17:53
Glucose
POC Glucose 81 92 74
04/11/25 04/12/25 04/12/25
21:49 03:19 05:17
Glucose 70
POC Glucose 100 H 94
04/12/25
08:10
Glucose
POC Glucose 71
Patient Education
[2025-04-12] MEDS: NOVOLOG FLEXPEN-LOW RESISTANCE SC ×2 (09:40→11:47)
[2025-04-12] MEDS: FLOMAX 0.8 MG PO (09:41)
[2025-04-12] MEDS: APRESOLINE 50 MG PO (09:41)
[2025-04-12] MEDS: ZESTRIL 20 MG PO (09:41)
[2025-04-12] MEDS: MUCINEX 600 MG PO (09:41)
[2025-04-12] MEDS: DIFLUCAN 400 MG PO (09:41)
[2025-04-12] MEDS: EFFIENT 10 MG PO (09:41)
[2025-04-12] MEDS: VISBIOME 1 CAP PO (09:41)
[2025-04-12] MEDS: PROTONIX 40 MG PO (09:41)
[2025-04-12] MEDS: NORVASC 10 MG PO (09:42)
[2025-04-12] MEDS: FARXIGA 10 MG PO (09:42)
[2025-04-12] MEDS: LOW STRENGTH ASPIRIN 81 MG PO (09:42)
[2025-04-12] MEDS: NEURONTIN 300 MG PO (09:42)
[2025-04-12] MEDS: CATAPRES 0.1 MG PO (09:42)
[2025-04-12] MEDS: WELLBUTRIN XL (24 hour extended release) 150 MG PO (09:42)
[2025-04-12] MEDS: KCL 20 MEQ PO (09:43)
[2025-04-12] MEDS: GLUCOPHAGE XR EXTENDED RELEASE 750 MG PO (09:43)
[2025-04-12] MEDS: ZOLOFT 25 MG PO (09:43)
[2025-04-12] MEDS: ATROPINE SULFATE 1% DROPS 1 DROP LEFT EYE (09:49)
[2025-04-12] MEDS: PRED FORTE 1% EYE DROPS 1 DROP LEFT EYE (09:49)
[2025-04-12] MEDS: ALPHAGAN 0.2% EYE DROPS 1 DROP LEFT EYE (09:49)
[2025-04-12] MEDS: TRUSOPT 2% OPHTHALMIC SOLUTION 1 DROP LEFT EYE (09:50)
[2025-04-12] MEDS: HEPARIN 5000 UNITS SC (09:50)
[2025-04-12] MEDS: TIMOPTIC 0.5% OPHTHALMIC SOLUTION 1 DROP LEFT EYE (09:50)
[2025-04-12] MEDS: DESITIN MAXIMUM STRENGTH PASTE 1 APPLIC TOPICAL (09:55)
--- NOTE | 2025-04-12 10:35 | W.PN.ID1 ---
Date of Service
Date of Service: April 12, 2025
Today's Communication
- culture of the bone of the 1st metatarsal - Pseudomonas, VRE, S simulans
- continue vanc/zosyn 6 week total course 04/04-05/15
- continue fluconazole 6 months total 02/17-08/17/25
- monthly LFTs
- follow up with me in about 6 -8 weeks
Assessment / Plan
# Leukocytosis- suspect necrotic non-healing R foot TMA source
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
- recently completed 6 weeks of IV daptomycin and ertapenem
- maintain PICC
- MRI suspected osteomyelitis of 1st, 5th digits and possible osteomyelitis of remaining digits
- culture of the bone of the 1st metatarsal - Pseudomonas, VRE, S simulans
- continue vanc/zosyn 6 week total course 04/04-05/15
- continue fluconazole 6 months total 02/17-08/17/25
- monthly LFTs
- follow up with me in about 6 -8 weeks
Chief Complaint
-: Other (osteomyelitis, dry gangrene)
Subjective / Review of Systems
afebrile
bp stable
no events overnight
Vital Signs / Physical Exam
Vital Signs
Vital Signs
Temp Pulse Resp BP Pulse Ox
97.7 F 78 17 123/70 98
04/12/25 07:40 04/12/25 07:40 04/12/25 07:40 04/12/25 09:42 04/12/25 07:40
Physical Exam
Constitutional: No Acute Distress
Cardiovascular: Regular Rate and S1/S2; Negative Murmur or Rub
Pulmonary: Clear and Symmetric; Negative Wheezes or Rales
Gastrointestinal: Soft, Non Tender, Non Distended and Normal Bowel Sounds
Skin: Warm and Dry; Negative Rash or Jaundice
Objective Data
Lab Data
Lab Results
04/12/25 05:17
04/12/25 05:17
Estimated Creat Clear 107 ml/min 04/12/25 05:17
Lactic Acid 0.9 mmol/L (0.7-2.0) 03/28/25 09:29
Total Bilirubin 0.4 mg/dl (0.2-1.3) 04/05/25 05:15
AST 18 U/L (17-59) 04/05/25 05:15
ALT 32 U/L (0-50) 04/05/25 05:15
Alkaline Phosphatase 157 U/L (38-126) H 04/05/25 05:15
Most recent labs reviewed.
Micro Results:
04/04/25 16:45 Wound Culture - Final
Foot - Right Pseudomonas aeruginosa
Enterococcus faecalis - VRE
Coagulase neg. staphylococcus
Gram Stain - Final
04/04/25 16:45 Anaerobic Culture - Final
Foot - Right NO ANAEROBES ISOLATED
04/04/25 16:45 Tissue Culture - Final
Foot - Right Pseudomonas aeruginosa
Enterococcus faecalis - VRE
Staphylococcus simulans
Gram Stain - Final
03/28/25 10:34 Blood Culture - Final
Blood/Venous No Growth - Final Report
03/28/25 09:28 Blood Culture - Final
Blood/Venous No Growth - Final Report
03/28/25 23:31 MRSA Screen - Final
Nose No Methicillin Resistant Staphylococcus aureus isolated.
03/28/25 23:31 Legionella Urinary Antigen - Final
Urine Negative for Legionella pneumophila Serogroup 1 antigen.
A negative result does not rule out the possiblity of
Legionella infection due to other serogroups or species of
Legionella. Clinical correlation is recommended.
Streptococcus pneumoniae Antigen (M - Final
Negative for Streptococcus pneumoniae antigen.
A negative result does not exclude infection with
Streptococcus pneumoniae. Clinical correlation is
recommended.
03/28/25 10:34 Influenza Types A & B (MCKAY) - Final
Nasal Swab Negative for Influenza A & B, NAAT
Negative results must be combined with clinical observations
and patient history.
Nucleic Acid Amplification test (NAAT)performed on the
[employer] platform.
03/28/25 09:28 Influenza Types A & B (MCKAY) - Final
Nasal Swab Test repeatedly invalid.
Nucleic Acid Amplification test (NAAT)performed on the
[employer] platform.
--- NOTE | 2025-04-12 10:38 | CM ---
Addendum entered by Lizzie Longo 04/12/25 13:48:
Mom did not come in, per patient email to
Addendum entered by Lizzie Longo 04/12/25 12:13:
transport 1:30 pm
Patients son updated.
Patients mother on her way yo the hospital.
IMm reviewed with son and will give copy to mother.
Original Note:
Spoke with Susana at [facility]
Authorization for skilled rehab 7 days
Start date 04/12/25, NRD 04/18/25
Auth # [id number]
updates to [phone]
Acute care ambulance auth [id number]
[facility]
Report# [phone]
--- NOTE | 2025-04-12 11:34 | W.PN.HOSP.TC ---
Today's Communication/Plan
-
Discharge to SNF today
Assessment / Plan
Assessment / Plan
Impression:
Mr. Elio Chapman is a 59 yo man with hx IDDM, essential HTN, CKD, PAD s/p left AKA 07/06 and s/p right TMA 01/06 admitted 02/13-02/22 for acute osteomyelitis of right metatarsal amputation (s/p limflow procedure discharged 6 weeks
Vanc/Ertapenem/Fluconazole) admitted again 03/03-03/08 for lethargy, LINDY (s/p correa catheter, IV Vanc changed to IV Daptomycin) and completed antibiotics 03/26/25 then with worsening shortness of breath and hypoxia over the weekend found to have
multifocal pneumonia.
Triage VS: T 97.3, P 102, RR 30, BP 139/71, SpO2 81%
patient required high flow in the ER with increasing oxygen requirements
Patient continued to improve, oxygen weaned to 2 L.
Patient weaned to room air, pulmonology stopped steroid.
Diabetic management consulted.
Patient noted to have worsened leukocytosis, required podiatry consulted infectious ease consult.
Patient status post Right foot debridement with bone culture form Rt 1st metatarsal (04/04)
culture of the bone of the 1st metatarsal - Pseudomonas, VRE, S simulans
- continue vanc/zosyn 6 week total course 04/04/2025-05/15/2025
- continue fluconazole 6 months total 02/17/2025-08/17/25
Assessment/plan:
Acute Osteomyelitis
History of osteomyelitis at right TMA amputation site; completed 6 weeks IV antibiotics on 03/26.
Podiatry and Infectious Disease consulted.
Status post right foot debridement with bone culture from right 1st metatarsal (04/04).
Restarted antibiotics (Zosyn, Vancomycin) post-debridement.
Bone culture: Pseudomonas, VRE, Staphylococcus simulans.
Continue Vancomycin/Zosyn for 6-week total course (04/04/202505/15/2025).
Continue Fluconazole for 6-month total course (02/17/202508/17/2025).
Acute Hypoxic Respiratory Failure
Secondary to above; now resolved.
Patient on room air.
Multifocal Pneumonia
Flu and COVID negative.
Initially treated with IV Cefepime and Doxycycline for atypical coverage.
Completed pneumonia antibiotics; currently on Vancomycin and Zosyn for osteomyelitis.
ID and Pulmonary consulted.
Echocardiogram (03/30):
Hyperdynamic LV systolic function with mild LV hypertrophy.
Dilated RV with normal systolic function.
Aortic sclerosis without stenosis.
Non-mobile echobright density in LVOT likely calcification; consider serial imaging or CHRISTOPHER if clinically indicated.
NIDDM
A1c: 5.7%.
Hypoglycemia episodes.
Adjusted regimen:
Initially continue Lantus at reduced dose but patient continued to have hypoglycemia, Lantus discontinued.
Pre-meal Novolog stopped; SSI now low-res.
Started Metformin and Farxiga.
smoking pipe coater following.
Hypokalemia
Repleted; resolved.
CKD Stage III
stable
Metabolic Acidosis
resolved
Essential Hypertension
VP SITE regimen:
Amlodipine 10 mg PO QD (with hold parameters).
Clonidine 0.1 mg PO QD.
Hydralazine 50 mg PO TID (with hold parameters).
Lisinopril 20 mg PO QD�c
Held VP SITE HCTZ.
Monitor BP and titrate back to home regimen as tolerated.
Chronic Anemia
Stable.
Hyperlipidemia
Continue VP SITE statin.
Anxiety
seen by psych
Continue Wellbutrin 150mg and sertraline 25mg
BPH
Continue VP SITE Flomax.
GI Prophylaxis
Start Protonix (patient on Aspirin, Prasugrel, and Heparin SQ).
Code Status: Full Code.
DVT Prophylaxis: Heparin SQ.
Diet: Regular.
Disposition: Continue antibiotics; medically cleared for discharge once SNF bed available.
Medically cleared since 04/08/25 AM; case management aware.
Total time spent on today's encounter was 55 minutes which included time spent in counseling the patient/family regarding diagnosis and treatment plan as listed above, goals of care, and symptom management. Case was discussed with nursing staff,
specialists, and care coordinators/case management. All labs and imaging personally reviewed by me. Remainder the time spent in detailed review of previous records, lab data, imaging, and other medical provider documentation.
Part of this note was created using voice recognition system. Occasional wrong word or �sound alike� substitutions may have inadvertently occurred due to the inherent limitations of voice recognition software. If noted kindly bring it to my
attention for correction.
Anticipated Discharge: Today
Subjective/Interval History
-
Date of Service: April 12, 2025
Patient seen and examined at bedside, denies any chest pain or shortness of breath, no abdominal pain, no nausea, no vomiting, no diarrhea or constipation.
Objective Data
-
Labs:
Laboratory Results
04/12/25
05:17
WBC 9.1
Hgb 7.4 L
Hct 22.1 L
Plt Count 357
Sodium 136
Potassium 3.6
Chloride 106
Carbon Dioxide 26
BUN 11
Creatinine 0.8
Glucose 70
Calcium 8.7
Vital Signs:
Vital Signs
Temp Pulse Resp BP Pulse Ox
97.7 F 78 17 123/70 98
04/12/25 07:40 04/12/25 07:40 04/12/25 07:40 04/12/25 09:42 04/12/25 07:40
I&O
04/11/25 04/12/25 04/13/25
06:59 06:59 06:59
Intake Total 1440 / 1440 440 / 440
Output Total 1900 / 1900 2400 / 2400
Balance -460 / -460 -1960 / -1960
Physical Exam
-
General: Well Developed, Well Nourished, No Apparent Distress and Comfortable
HEENT: Normocephalic, Atraumatic, Moist Mucous Membranes, No Ptosis, PERRLA and Nose Appears Normal
Respiratory: Rales, Rhonchi and Non Labored Respirations
Cardiac: Regular Rhythm and S1/S2
Breast: Deferred by me
GI: Soft, Nontender, Nondistended and Normal Bowel Sounds
Genito-urinary: No Costovertebral Tender
Musculoskeletal: No Clubbing and Other ( (L AKA, R toe amp))
Skin: Warm
Neuro: Awake, Alert, Oriented, AO x 3 and No Motor Deficits
Psych: Calm
--- NOTE | 2025-04-12 11:38 | W.DCSUMMARY ---
Discharge Summary
Discharge Data
Date of Admission: 03/28/25
Date of Discharge: 04/12/25
Total time spent discharging patient (in min): 40
-
Pending Results: No
Hospital Course
Hospital course
Mr. Elio Chapman is a 59 yo man with hx IDDM, essential HTN, CKD, PAD s/p left AKA 07/06 and s/p right TMA 01/06 admitted 02/13-02/22 for acute osteomyelitis of right metatarsal amputation (s/p limflow procedure discharged 6 weeks
Vanc/Ertapenem/Fluconazole) admitted again 03/03-03/08 for lethargy, LINDY (s/p correa catheter, IV Vanc changed to IV Daptomycin) and completed antibiotics 03/26/25 then with worsening shortness of breath and hypoxia over the weekend found to have
multifocal pneumonia.
Triage VS: T 97.3, P 102, RR 30, BP 139/71, SpO2 81%
patient required high flow in the ER with increasing oxygen requirements
Patient continued to improve, oxygen weaned to 2 L.
Patient weaned to room air, pulmonology stopped steroid.
Diabetic management consulted.
Patient noted to have worsened leukocytosis, required podiatry consulted infectious ease consult.
Patient status post Right foot debridement with bone culture form Rt 1st metatarsal (04/04)
culture of the bone of the 1st metatarsal - Pseudomonas, VRE, S simulans
- continue vanc/zosyn 6 week total course 04/04/2025-05/15/2025
- continue fluconazole 6 months total 02/17/2025-08/17/25
During hospitalization patient was treated from the following
Acute Osteomyelitis
History of osteomyelitis at right TMA amputation site; completed 6 weeks IV antibiotics on 03/26.
Podiatry and Infectious Disease consulted.
Status post right foot debridement with bone culture from right 1st metatarsal (04/04).
Restarted antibiotics (Zosyn, Vancomycin) post-debridement.
Bone culture: Pseudomonas, VRE, Staphylococcus simulans.
Continue Vancomycin/Zosyn for 6-week total course (04/04/202505/15/2025).
Continue Fluconazole for 6-month total course (02/17/202508/17/2025).
Acute Hypoxic Respiratory Failure
Secondary to above; now resolved.
Patient on room air.
Multifocal Pneumonia
Flu and COVID negative.
Initially treated with IV Cefepime and Doxycycline for atypical coverage.
Completed pneumonia antibiotics; currently on Vancomycin and Zosyn for osteomyelitis.
ID and Pulmonary consulted.
Echocardiogram (03/30):
Hyperdynamic LV systolic function with mild LV hypertrophy.
Dilated RV with normal systolic function.
Aortic sclerosis without stenosis.
Non-mobile echobright density in LVOT likely calcification; consider serial imaging or CHRISTOPHER if clinically indicated.
NIDDM
A1c: 5.7%.
Hypoglycemia episodes.
Adjusted regimen:
Initially continue Lantus at reduced dose but patient continued to have hypoglycemia, Lantus discontinued.
Pre-meal Novolog stopped; SSI now low-res.
Started Metformin and Farxiga.
uptwist spinner following.
Hypokalemia
Repleted; resolved.
CKD Stage III
stable
Metabolic Acidosis
resolved
Essential Hypertension
FLASK CLEANER regimen:
Amlodipine 10 mg PO QD (with hold parameters).
Clonidine 0.1 mg PO QD.
Hydralazine 50 mg PO TID (with hold parameters).
Lisinopril 20 mg PO QD�c
Held FLASK CLEANER HCTZ.
Monitor BP and titrate back to home regimen as tolerated.
Chronic Anemia
Stable.
Hyperlipidemia
Continue FLASK CLEANER statin.
Anxiety
seen by psych
Continue Wellbutrin 150mg and sertraline 25mg
BPH
Continue FLASK CLEANER Flomax.
GI Prophylaxis
Start Protonix (patient on Aspirin, Prasugrel, and Heparin SQ).
Code Status: Full Code.
DVT Prophylaxis: Heparin SQ.
Diet: Regular.
Disposition: Continue antibiotics; medically cleared for discharge once SNF bed available.
Medically cleared since 04/08/25 AM.
Total time spent on today's encounter was 40 minutes which included time spent in counseling the patient/family regarding diagnosis and treatment plan as listed above, goals of care, and symptom management. Case was discussed with nursing staff,
specialists, and care coordinators/case management. All labs and imaging personally reviewed by me. Remainder the time spent in detailed review of previous records, lab data, imaging, and other medical provider documentation.
Anticipated Discharge: Today
Discharge Plan
-
Patient Disposition: [facility]NF
Discharge Diagnosis/Procedures: osteomyelitis
Acute Hypoxic Respiratory Failure
Multifocal Pneumonia
NIDDM
Diet: Diabetic, Carb Controlled
Activity: As tolerated
Activity Restrictions/Additional Instructions:
Monthly LFTs to be done
Wound Care Instructions
04/[address] Heath-R TMA: clean with saline, Santyl, adaptic, dry gauze dressing change daily
Heel: clean with saline, adaptic, abd pad and mary lou, change daily and prn drainage.
L BKA: silicone bordered foam, change q 3 days and prn soilage.
Sacrum/Buttocks- Clean with saline or soap and water and apply Maximum Strength and Apply ABD to separate buttock folds. Perform BID and PRN if soiled. e
Barrier cream to remaining exposed skin.
Offloading heel boot for R leg
Air mattress with turning schedule
ROHO cushion for wheelchair, limit time in chair to 1-2 hrs recommended.
Increase protein in diet.
Follow up with [facility] as scheduled.
Referrals:
Wilmer Faria MD [Family Provider]
Vivien Heath DPM [Specified Professional Personl, Podiatry] - in one to two weeks
Shaneka Comer MD [Active, Infectious Diseases] - in one to two weeks
Prescriptions:
New
bupropion HCl 150 mg Tablet Extended Release 24 Hr
150 mg PO DAILY Qty: 0 0RF
pantoprazole 40 mg Tablet,Delayed Release (Dr/Ec)
40 mg PO DAILY Qty: 0 0RF
Zosyn in dextrose (iso-osm) 4.5 gram/100 mL Piggyback
4.5 g IV Q6H Qty: 0 0RF
Rx Instructions:
Continue through May 15, 2025
potassium chloride [Klor-Con M20] 20 mEq Tablet,Er Particles/Crystals
20 meq PO DAILY Qty: 0 0RF
Desitin 40 % Paste
1 applic topical BID Qty: 0 0RF
Vancomycin [Vancocin] 1500 MG
0.9% Sodium Chloride 500 ml [Nss] 500 ML
353.333 mls/hr IV DAILY@0600
Continue through May 15, 2025
Ordered By: Graciela Bocanegra MD
Last Taken: 04/12/25 06:40 530 mls
Protocol: None
Protocol Text:
DOSING PER PHARMACY
Please contact pharmacy with any questions.
Continued
metformin 750 mg Tablet Extended Release 24 Hr
750 mg PO DAILY
amlodipine [Norvasc] 10 mg Tablet
10 mg PO DAILY
sumatriptan succinate 25 mg tablet
25 mg PO Q2HPRN PRN (Reason: headache)
prednisolone acetate 1 % drops,suspension
1 drp LEFT EYE QID
brimonidine 0.2 % drops
1 drp LEFT EYE BID
dorzolamide-timolol 22.3-6.8 mg/mL drops
1 drp LEFT EYE BID
Santyl 250 unit/gram ointment
1 applic TOPICAL DAILY PRN (Reason: infection site )
atropine 1 % drops
1 drp LEFT EYE BID
hydralazine 50 mg tablet
50 mg PO TID
ferrous fumarate 324 mg (106 mg iron) tablet
324 mg PO Q48H
aspirin 81 mg tablet,chewable
81 mg PO DAILY
prasugrel HCl 10 mg Tablet
10 mg PO DAILY Qty: 30 0RF
gabapentin 300 mg Capsule
300 mg PO TID Qty: 30 0RF
tamsulosin 0.4 mg Capsule
0.8 mg PO DAILY Qty: 30 0RF
acetaminophen 325 mg Tablet
650 mg PO Q4H PRN (Reason: pain/fever)
ipratropium-albuterol 0.5 mg-3 mg(2.5 mg base)/3 mL Solution For Nebulization
3 ml INHALATION Q4H PRN (Reason: sob or wheezing )
melatonin 3 mg Tablet
3 mg PO HS PRN (Reason: sleep)
Rx Instructions:
started 03/17/25 end date 03/31/25 MKO
magnesium hydroxide [Milk of Magnesia] 400 mg/5 mL Suspension
30 ml PO DAILY PRN (Reason: if no bowel movement in 3 days)
Fleet Enema 19-7 gram/118 mL Enema
118 ml MT DAILYPRN PRN (Reason: if dulcolax is ineffective after 24 hrs)
sertraline 25 mg Tablet
25 mg PO DAILY
rosuvastatin 20 mg Tablet
20 mg PO QPM
guaifenesin 100 mg/5 mL Liquid
200 mg PO Q4H PRN (Reason: cough)
bisacodyl 10 mg Suppository
10 mg MT DAILY PRN (Reason: if milk of magnesia is ineffective after 24 hours)
fluconazole 200 mg Tablet
400 mg PO DAILY Qty: 30 0RF
Rx Instructions:
give for prophylaxis until 08/17/25 - MO
dapagliflozin propanediol 10 mg Tablet
10 mg PO DAILY 30 Days Qty: 30 0RF
clonidine HCl 0.1 mg tablet
0.1 mg PO DAILY 30 Days Qty: 30 0RF
Changed
lisinopril 40 mg Tablet
20 mg PO DAILY Qty: 0 0RF
oxycodone 10 mg Tablet
5 mg PO Q4H PRN (Reason: severe pain) Qty: 0 0RF
Discontinued
acetazolamide 250 mg Tablet
500 mg PO BID
hydrochlorothiazide 25 mg Tablet
25 mg PO DAILY
levofloxacin [Levaquin] 750 mg Tablet
750 mg PO DAILY
Rx Instructions:
start date 03/27/25 end date 04/02/25 - MKO
Discharge Orders:
Discharge Patient (As Directed); Ordered 04/12/25
Ordered By: Graciela Bocanegra
Discharge Date and Time
Print Language: ESTONIAN
[2025-04-12 11:40] LABS: Glucose - Point of Care 78 mg/dl (70-99)
--- NOTE | 2025-04-12 13:30 | PTCARENOTE ---
patient being transferred to [facility] with right PICC line in place, dressing c/d/i, excellent blood return. patient sent with belongings via stretcher with ambulance crew.
[2025-04-12 13:32] VITALS: BP 116/66
== END 2025-04-12 15:02 | DRG 463 ==
LOC: 3 WEST ACU 13:38
PROVIDERS: Internal Medicine; ADMITTING PHYSICIAN Student in an Organized Health Care Education/Training Program; ATTENDING PHYSICIAN General Practice; CONSULT PHYSICIAN Internal Medicine; CONSULT PHYSICIAN Podiatrist Foot & Ankle Surgery; EMERGENCY PHYSICIAN Student in an Organized Health Care Education/Training Program; FAMILY PHYSICIAN Internal Medicine; OTHER PHYSICIAN Psychiatry & Neurology Psychiatry; OTHER PHYSICIAN Student in an Organized Health Care Education/Training Program
PROC: 30233N1 Transfusion of Nonautologous Red Blood Cells into Peripheral Vein, Percutaneous Approach (ICD-10-PCS; 2025-04-05)
PROC: 0JBQ0ZZ Excision of Right Foot Subcutaneous Tissue and Fascia, Open Approach (ICD-10-PCS; 2025-04-06)
PROC: 0QBN0ZX Excision of Right Metatarsal, Open Approach, Diagnostic (ICD-10-PCS; 2025-04-06)
DX: T87.43 Infection of amputation stump, right lower extremity (principal); A41.9 Sepsis, unspecified organism; L89.153 Pressure ulcer of sacral region, stage 3; J18.9 Pneumonia, unspecified organism; J96.01 Acute respiratory failure with hypoxia; R65.20 Severe sepsis without septic shock; M86.171 Other acute osteomyelitis, right ankle and foot; I13.0 Hypertensive heart and chronic kidney disease with heart failure and stage 1 through stage 4 chronic kidney disease, or unspecified chronic kidney disease; E11.52 Type 2 diabetes mellitus with diabetic peripheral angiopathy with gangrene; N17.9 Acute kidney failure, unspecified; M86.671 Other chronic osteomyelitis, right ankle and foot; E87.20 Acidosis, unspecified; E87.1 Hypo-osmolality and hyponatremia; F33.9 Major depressive disorder, recurrent, unspecified; I70.261 Atherosclerosis of native arteries of extremities with gangrene, right leg; D62 Acute posthemorrhagic anemia; T87.53 Necrosis of amputation stump, right lower extremity; E11.69 Type 2 diabetes mellitus with other specified complication; E11.22 Type 2 diabetes mellitus with diabetic chronic kidney disease; E11.319 Type 2 diabetes mellitus with unspecified diabetic retinopathy without macular edema; N18.30 Chronic kidney disease, stage 3 unspecified; Z89.612 Acquired absence of left leg above knee; Z89.431 Acquired absence of right foot; D63.1 Anemia in chronic kidney disease; Z98.62 Peripheral vascular angioplasty status; Z11.52 Encounter for screening for COVID-19; F41.9 Anxiety disorder, unspecified; N40.1 Benign prostatic hyperplasia with lower urinary tract symptoms; R33.8 Other retention of urine; F17.290 Nicotine dependence, other tobacco product, uncomplicated; Z79.84 Long term (current) use of oral hypoglycemic drugs; Z79.82 Long term (current) use of aspirin; E11.649 Type 2 diabetes mellitus with hypoglycemia without coma; E87.6 Hypokalemia; T87.81 Dehiscence of amputation stump; Y83.5 Amputation of limb(s) as the cause of abnormal reaction of the patient, or of later complication, without mention of misadventure at the time of the procedure; F43.10 Post-traumatic stress disorder, unspecified; B96.5 Pseudomonas (aeruginosa) (mallei) (pseudomallei) as the cause of diseases classified elsewhere; I70.0 Atherosclerosis of aorta; E78.00 Pure hypercholesterolemia, unspecified
CPT/HCPCS: 36600; 71045; 71250; 73720; 80048; 80053; 80202; 82607; 82728; 82805; 82962; 83036; 83540; 83550; 83605; 83735; 83880; 85025; 85027; 86850; 86900; 86901; 86920; 87040; 87070; 87071; 87075; 87077; 87147; 87176; 87186; 87205; 87449; 87502; 87811; 87899; 88304; 88311; 92526; 92610; 93005; 93306; 96365; 96366; 96375; 97163; 97167; 97530; 97535; 99285; A9575; P9016